=== PATIENT | male | born 1955 | race Caucasian/White ===

== ENCOUNTER 2016-05-15 19:50 | Inpatient (IN) | payer MEDICARE, BC ==
[2016-05-15] MEDS ORDERED: LABETALOL 5 MG/ML VIAL MDV IVP STA (20:33)
--- NOTE | 2016-05-15 20:39 | ED ---
Neuro HPI - General Chief Complaint: Neuro Symptoms/Deficit Stated Complaint: vision loss Time Seen by Provider: 05/15/16 20:10 Source: patient, RN notes reviewed Mode of arrival: ambulatory Limitations: no limitations - History of Present Illness Is the patient presenting with stroke symptoms?: Yes Last Known Well Date: 05/14/16 Last Known Well Time: 15:00 Initial Comments: This patient is a 61-year-old man who presents to be evaluated for changes to his vision. The patient states that on May 13 he thought he was coming down with the flu that night. He did have some nausea and vomiting and wasn't feeling well, including some mild body aches. He states that when he woke up the next morning he was not able to see. He thought that he was still having some effects of the flu and ended up just resting all day. The patient's daughter states that the patient called her around 3 but did not report the changes in his vision. When she saw him today he told her that he was not able to see and she brought him here. Patient denies headache, fever or chills, chest pain or dyspnea. He denies any other neurologic symptoms. Location: other (Revision) History of same: No Place: home Severity: severe Quality: constant Improves With: time Worsens With: none Context: sudden onset Associated Symptoms: nausea/vomiting Treatments Prior to Arrival: none - Related Data Home Medications: Home Medications Medication Instructions Recorded Confirmed Aspirin [Adult Low Dose Aspirin EC] 81 mg PO DAILY 06/16/15 06/18/15 Citalopram Hydrobromide [CeleXA] 20 mg PO HS 06/16/15 06/18/15 Ezetimibe/Simvastatin [Vytorin 1 tab PO HS 06/16/15 06/16/15 10-40 mg Tablet] Lisinopril [Zestril] 5 mg PO DAILY 06/16/15 06/16/15 Metoprolol Tartrate [Lopressor] 100 mg PO BID 06/16/15 06/18/15 Multivit-Min/FA/Lycopene/Lut 1 tab PO DAILY 06/16/15 06/18/15 [Centrum Silver Tablet] Mycophenolate Mofetil [Cellcept] 1,000 mg PO BID 06/16/15 06/18/15 Pantoprazole Sodium [Protonix] 40 mg PO DAILY 06/16/15 06/16/15 Tacrolimus [Prograf] 3 mg PO DAILY 06/16/15 06/16/15 Tacrolimus [Prograf] 4 mg PO HS 06/16/15 06/16/15 Tamsulosin HCl [Flomax] 0.4 mg PO HS 06/16/15 06/18/15 predniSONE 5 mg PO DAILY 06/16/15 06/16/15 Previous Rx's Medication Instructions Recorded Furosemide [Lasix] 40 mg PO BID #0 06/20/15 Insulin Glargine,Hum.rec.anlog 8 unit SQ HS #0 06/20/15 [Lantus Solostar] Metolazone [Zaroxolyn] 2.5 mg PO Q48H #30 tablet 06/20/15 Potassium Chloride ER [K-Dur 10] 10 meq PO DAILY #30 tab 06/20/15 hydrALAZINE HCL [Apresoline] 50 mg PO BID #60 tab 06/20/15 Allergies/Adverse Reactions: Allergies Allergy/AdvReac Type Severity Reaction Status Date / Time No Known Allergies Allergy Verified 05/15/16 20:06 Review of Systems ROS Statement: Those systems with pertinent positive or pertinent negative responses have been documented in the HPI. ROS Other: All systems not noted in ROS Statement are negative. Constitutional: Denies: fever, chills, weakness Eyes: Reports: as per HPI, vision change ENT: Denies: ear pain, hearing loss Respiratory: Denies: cough, dyspnea Cardiovascular: Denies: chest pain, palpitations, syncope Gastrointestinal: Reports: as per HPI, vomiting. Denies: abdominal pain Genitourinary: Denies: dysuria, hematuria Skin: Denies: rash Neurological: Denies: headache, weakness, numbness, paresthesias, confusion, vertigo General Exam General appearance: alert, in no apparent distress Head exam: Present: atraumatic, normocephalic, normal inspection Eye exam: Present: normal appearance, PERRL, EOMI. Absent: scleral icterus, conjunctival injection, nystagmus ENT exam: Present: normal oropharynx, mucous membranes dry Neck exam: Present: normal inspection, full ROM Respiratory exam: Present: normal lung sounds bilaterally. Absent: respiratory distress, wheezes, rales, rhonchi, stridor Cardiovascular Exam: Present: regular rate, tachycardia, systolic murmur. Absent: diastolic murmur, rubs, gallop GI/Abdominal exam: Present: soft. Absent: distended, tenderness, guarding, rebound, mass Extremities exam: Present: normal inspection, normal capillary refill. Absent: pedal edema, calf tenderness Back exam: Absent: CVA tenderness (R), CVA tenderness (L) Neurological exam: Present: alert, oriented X3. Absent: motor sensory deficit Skin exam: Present: warm, dry, intact, normal color. Absent: rash Stroke MDM - Lab Data Result diagrams: 05/15/16 20:17 05/15/16 20:17 Lab Results 05/15/16 05/15/16 05/15/16 Range/Units 20:17 20: 20:17 WBC 14.3 H (3.8-10.6) k/uL RBC 5.82 (4.30-5.90) m/uL Hgb 16.7 (13.0-17.5) gm/dL Hct 50.8 (39.0-53.0) % MCV 87.3 (80.0-100.0) fL MCH 28.7 (25.0-35.0) pg MCHC 32.8 (31.0-37.0) g/dL RDW 15.5 (11.5-15.5) % Plt Count 215 (150-450) k/uL Neutrophils % 87 % Lymphocytes % 5 % Monocytes % 5 % Eosinophils % 1 % Basophils % 0 % Neutrophils # 12.5 H (1.3-7.7) k/uL Lymphocytes # 0.8 L (1.0-4.8) k/uL Monocytes # 0.8 (0-1.0) k/uL Eosinophils # 0.1 (0-0.7) k/uL Basophils # 0.0 (0-0.2) k/uL PT (9.0-12.0) sec INR (<1.1) APTT (22.0-30.0) sec Sodium 136 L (137-145) mmol/L Potassium 4.3 (3.5-5.1) mmol/L Chloride 104 (98-107) mmol/L Carbon Dioxide 20 L (22-30) mmol/L Anion Gap 12 mmol/L BUN 34 H (9-20) mg/dL Creatinine 2.30 H (0.66-1.25) mg/dL Est GFR (MDRD) Af Amer 35 (>60 ml/min/1.73 sqM) Est GFR (MDRD) Non-Af 29 (>60 ml/min/1.73 sqM) Glucose 289 H (74-99) mg/dL POC Glucose (mg/dL) (75-99) mg/dL POC Glu Psych Specialist ID Calcium 9.7 (8.4-10.2) mg/dL Total Bilirubin 1.0 (0.2-1.3) mg/dL AST 26 (17-59) U/L ALT 23 (21-72) U/L Alkaline Phosphatase 104 (38-126) U/L Total Creatine Kinase 133 (55-170) U/L CK-MB (CK-2) 8.6 H* (0.0-2.4) ng/mL CK-MB (CK-2) Rel Index 6.5 Troponin I 0.477 H* (0.000-0.034) ng/mL Total Protein 6.1 L (6.3-8.2) g/dL Albumin 3.4 L (3.5-5.0) g/dL 05/15/16 05/15/16 05/15/16 Range/Units 20:17 20:50 23:15 WBC (3.8-10.6) k/uL RBC (4.30-5.90) m/uL Hgb (13.0-17.5) gm/dL Hct (39.0-53.0) % MCV (80.0-100.0) fL MCH (25.0-35.0) pg MCHC (31.0-37.0) g/dL RDW (11.5-15.5) % Plt Count (150-450) k/uL Neutrophils % % Lymphocytes % % Monocytes % % Eosinophils % % Basophils % % Neutrophils # (1.3-7.7) k/uL Lymphocytes # (1.0-4.8) k/uL Monocytes # (0-1.0) k/uL Eosinophils # (0-0.7) k/uL Basophils # (0-0.2) k/uL PT 10.4 (9.0-12.0) sec INR 1.0 (<1.1) APTT 24.6 (22.0-30.0) sec Sodium (137-145) mmol/L Potassium (3.5-5.1) mmol/L Chloride (98-107) mmol/L Carbon Dioxide (22-30) mmol/L Anion Gap mmol/L BUN (9-20) mg/dL Creatinine (0.66-1.25) mg/dL Est GFR (MDRD) Af Amer (>60 ml/min/1.73 sqM) Est GFR (MDRD) Non-Af (>60 ml/min/1.73 sqM) Glucose (74-99) mg/dL POC Glucose (mg/dL) 247 H 218 H (75-99) mg/dL POC Glu Psych Specialist ID Maria Guadalupe Amador Katlyn Calcium (8.4-10.2) mg/dL Total Bilirubin (0.2-1.3) mg/dL AST (17-59) U/L ALT (21-72) U/L Alkaline Phosphatase (38-126) U/L Total Creatine Kinase (55-170) U/L CK-MB (CK-2) (0.0-2.4) ng/mL CK-MB (CK-2) Rel Index Troponin I (0.000-0.034) ng/mL Total Protein (6.3-8.2) g/dL Albumin (3.5-5.0) g/dL 05/16/16 Range/Units 00:50 WBC (3.8-10.6) k/uL RBC (4.30-5.90) m/uL Hgb (13.0-17.5) gm/dL Hct (39.0-53.0) % MCV (80.0-100.0) fL MCH (25.0-35.0) pg MCHC (31.0-37.0) g/dL RDW (11.5-15.5) % Plt Count (150-450) k/uL Neutrophils % % Lymphocytes % % Monocytes % % Eosinophils % % Basophils % % Neutrophils # (1.3-7.7) k/uL Lymphocytes # (1.0-4.8) k/uL Monocytes # (0-1.0) k/uL Eosinophils # (0-0.7) k/uL Basophils # (0-0.2) k/uL PT (9.0-12.0) sec INR (<1.1) APTT (22.0-30.0) sec Sodium (137-145) mmol/L Potassium (3.5-5.1) mmol/L Chloride (98-107) mmol/L Carbon Dioxide (22-30) mmol/L Anion Gap mmol/L BUN (9-20) mg/dL Creatinine (0.66-1.25) mg/dL Est GFR (MDRD) Af Amer (>60 ml/min/1.73 sqM) Est GFR (MDRD) Non-Af (>60 ml/min/1.73 sqM) Glucose (74-99) mg/dL POC Glucose (mg/dL) 176 H (75-99) mg/dL POC Glu Psych Specialist ID Cesilia Johnson Calcium (8.4-10.2) mg/dL Total Bilirubin (0.2-1.3) mg/dL AST (17-59) U/L ALT (21-72) U/L Alkaline Phosphatase (38-126) U/L Total Creatine Kinase (55-170) U/L CK-MB (CK-2) (0.0-2.4) ng/mL CK-MB (CK-2) Rel Index Troponin I (0.000-0.034) ng/mL Total Protein (6.3-8.2) g/dL Albumin (3.5-5.0) g/dL - Medical Decision Making This patient is 61-year-old man who presents with decreased visual acuity affecting both eyes, but is been going on for approximately 30 hours. The computed tomography scan does not reveal acute stroke, and the physical exam does not reveal the etiology of the patient's decreased visual acuity. Patient will be admitted for further evaluation. Of note the patient does state that he feels his symptoms are improving, he states he is beginning to recognize faces, which she was not able to do yesterday Past Medical History Past Medical History: Coronary Artery Disease (CAD), Chest Pain / Angina, Diabetes Mellitus, Dialysis, Hyperlipidemia, Hypertension Additional Past Medical History / Comment(s): benign brain tumor(removed)- has mild short term memory problems, gout, occ heartburn History of Any Multi-Drug Resistant Organisms: None Reported Past Surgical History: Coronary Bypass/CABG Additional Past Surgical History / Comment(s): brain tumor removed,(rt) kidney transplant 2014, 5 vessel cabg, colonoscopy-clear, lt knee arthroscopy, rt arm fistula. 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 Smoking Status: Former smoker Past Alcohol Use History: None Reported Past Drug Use History: None Reported - Past Family History Father Family Medical History: Hypertension, Renal Disease Mother Family Medical History: No Reported History Sister(s) Family Medical History: Hyperlipidemia, Renal Disease Course Vital Signs 05/15/16 05/15/16 05/15/16 20:00 20:55 23:03 Temperature 97.3 F L Pulse Rate 113 H 100 87 Respiratory 18 18 18 Rate Blood Pressure 184/112 163/111 156/92 O2 Sat by Pulse 96 97 97 Oximetry 05/16/16 05/16/16 05/16/16 00:02 01:02 04:19 Temperature Pulse Rate 83 84 93 Respiratory 18 18 18 Rate Blood Pressure 156/91 154/87 166/105 O2 Sat by Pulse 95 96 96 Oximetry 05/16/16 07:03 Temperature 97.4 F L Pulse Rate 86 Respiratory 18 Rate Blood Pressure 150/85 O2 Sat by Pulse 97 Oximetry Disposition Clinical Impression: Renal failure, HTN (hypertension), Diabetes, Decreased visual acuity Disposition: ADMITTED IP TO THIS [facility] Condition: Poor
[2016-05-15 20:53] LABS: Glucose,Whole Blood 247 mg/dL (75-99)
[2016-05-15 21:01] LABS: Partial Thromboplastin Time 24.6 sec (22.0-30.0); Prothrombin Time 10.4 sec (9.0-12.0)
--- NOTE | 2016-05-15 21:01 | XR ---
EXAMINATION TYPE: XR chest 1V portable DATE OF EXAM: 05/15/2016 8:47 PM COMPARISON: June 16, 2015 HISTORY: Altered mental status. Flulike symptoms. TECHNIQUE: Single frontal view of the chest is obtained. FINDINGS: There is no heart failure nor confluent pneumonic infiltrate. There are no hilar masses. T here are sternal wires. There are chest leads. IMPRESSION: No active cardiopulmonary disease. There is probably cardiomegaly. There is clearing of infiltrate and pleural fluid at the left lung base compared to last exam.
[2016-05-15 21:03] LABS: Calcium 9.7 mg/dL (8.4-10.2); Potassium 4.3 mmol/L (3.5-5.1); Total Protein 6.1 g/dL (6.3-8.2)
[2016-05-15 21:05] LABS: Basophils % (A) 0 %; CH 29.5; CHCM 33.9; Eosinophils # (A) 0.1 k/uL (0-0.7); Eosinophils % (A) 1 %; HCT 50.8 % (39.0-53.0); HDW 3.06; HGB 16.7 gm/dL (13.0-17.5); Luc # (Auto) 0.21; Luc % (Auto) 2; Lymphocytes # (A) 0.8 k/uL (1.0-4.8); Lymphocytes % (A) 5 %; MCH 28.7 pg (25.0-35.0); MCHC 32.8 g/dL (31.0-37.0); MCV 87.3 fL (80.0-100.0); Mean Platelet Volume 7.4; Monocytes # (A) 0.8 k/uL (0-1.0); Monocytes % (A) 5 %; Neutrophils # (A) 12.5 k/uL (1.3-7.7); Neutrophils % (A) 87 %; RBC 5.82 m/uL (4.30-5.90); RDW 15.5 % (11.5-15.5); WBC 14.3 k/uL (3.8-10.6); WBC (Perox) 14.54
[2016-05-15 21:23] LABS: Creatine Kinase MB 8.6 ng/mL (0.0-2.4)
[2016-05-15 21:24] LABS: Troponin I 0.477 ng/mL (0.000-0.034)
--- NOTE | 2016-05-15 21:28 | CT ---
EXAMINATION TYPE: CT brain wo con DATE OF EXAM: 05/15/2016 9:23 PM COMPARISON: 01/08/2013 HISTORY: Headache and episode of vision loss. History of brain tumor removal. CT DLP: 1131.00 mGycm Automated exposure control for dose reduction was used. FINDINGS: There is frontal craniotomy defect and bilateral frontal lobe hypodensity consistent with encephaloma lacia and postsurgical changes. There is no midline shift. There is no sign of intracranial hemorrhag e. IMPRESSION: Postsurgical changes with encephalomalacia. No acute abnormality. No change compared to old exam.
[2016-05-15] MEDS ORDERED: INSULIN REGULAR 100 UNIT/ML VIAL SQ STA ×2 (22:55→23:16)
[2016-05-15] MEDS ORDERED: LABETALOL SYRINGE 5 MG/ML IVP STA (22:56)
[2016-05-15 23:16] LABS: Glucose,Whole Blood 218 mg/dL (75-99)
[2016-05-16 00:51] LABS: Glucose,Whole Blood 176 mg/dL (75-99)
[2016-05-16] MEDS ORDERED: ONDANSETRON 4 MG/2 ML VIAL IVP PRN (01:01)
[2016-05-16] MEDS ORDERED: NALOXONE 0.4 MG/ML 1 ML VIAL IV PRN (01:01)
[2016-05-16] MEDS: SODIUM CHLORIDE 0.9% 1,000 ML IV SCH ×4 (04:31→16:30)
[2016-05-16] MEDS ORDERED: hydrALAZINE HCL 50 MG TAB PO SCH (09:00)
[2016-05-16] MEDS ORDERED: TACROLIMUS 1 MG CAP PO SCH ×3 (09:00→21:00)
[2016-05-16] MEDS ORDERED: METOLAZONE 2.5 MG TAB PO SCH (09:00)
[2016-05-16] MEDS: ASPIRIN 81 MG CHEW PO SCH (09:41)
[2016-05-16] MEDS: predniSONE 5 MG TAB PO SCH (09:45)
[2016-05-16] MEDS: POTASSIUM CHLORIDE ER 10 MEQ TAB.ER.PRT PO SCH (09:45)
[2016-05-16] MEDS: LISINOPRIL 5 MG TAB PO SCH (09:46)
[2016-05-16] MEDS: MYCOPHENOLATE MOFETIL 500 MG TAB PO SCH ×2 (09:46→20:50)
[2016-05-16] MEDS: METOPROLOL TARTRATE 50 MG TAB PO SCH ×2 (09:46→20:50)
[2016-05-16] MEDS: PANTOPRAZOLE 40 MG TABLET PO SCH (09:47)
[2016-05-16] MEDS: MULTIVITAMINS, THERA 1 EACH TAB PO SCH (09:47)
[2016-05-16] MEDS: hydrALAZINE HCL 50 MG TAB PO SCH ×3 (09:47→20:51)
[2016-05-16] MEDS: FUROSEMIDE 40 MG TAB PO SCH ×2 (09:47→16:29)
[2016-05-16 11:45] LABS: Glucose,Whole Blood 220 mg/dL (75-99)
[2016-05-16 12:19] LABS: Glucose,Whole Blood 219 mg/dL (75-99)
[2016-05-16] MEDS: INSULIN LISPRO (humaLOG) 300 UNIT/3 ML VIAL SQ SCH ×2 (12:53→17:06)
[2016-05-16 13:22] LABS: Appearance,Urine Clear (Clear); Bilirubin,Urine Negative (Negative); Glucose,Urine (UA) 3+ (Negative); Granular Casts,Urine 2 /lpf (0); Ketones,Urine Negative (Negative); Leukocyte Esterase,Urine Negative (Negative); Mucus,Urine Rare /hpf; Nitrite,Urine Negative (Negative); PH, Urine 6.5 (5.0-8.0); Particle Count 3136; Protein,Urine 4+ (Negative); RBC,Urine 8 /hpf (0-5); Specific Gravity,Urine 1.019 (1.001-1.035); Squamous Epithelial Cell,Urine <1 /hpf (0-4); UA Billing (MACRO vs. MICRO) MICRO; Urobilinogen,Urine <2.0 mg/dL (<2.0); WBC,Urine 2 /hpf (0-5)
--- NOTE | 2016-05-16 14:43 | P.CON ---
Consult Note - . Consult date: 05/16/16 Assessment/Plan:: This is a 61 y/o male with a history of having experienced a severe headache 2 days ago, and an apparent sudden loss of vision. He had flu symptoms was nauseated and vomiting and was without oral intake. He apparently stumbled and fell and was unable to call out for help. He denies any vertigenous symptoms or associated weakness or other associated neurological symptoms during the onset of the headache and loss of sight. The following day his daughter came over to find him in poor shape with decreased vision and had the patient assessed in the emergency room. He states his vision was "blind" but not apparently so totally that there was not light. He has noted that since his admission the vision has improved dramatically but is not necessarily back to normal. On admission, the vision was apparently no better than hand motion or finger counting. He underwent CT and is currently admitted for possible cerebral vascular accident. He states that he has been following up with a telephone maintenance mechanic and was asked to seek and eye exam, as it's been several years since the eyes have been examined. He has been only using OTC readers for the last few years, however, he previously had glasses which were some combination of distance and reading. Those glasses became scratched and he's failed to update them. Past medical history: hypertension, Chronic renal failure with subsequent transplant 4 years ago. Diabetes mellitus Type 2, 4 years ago. Typical FBS is 140-160 mg% for some time, no A-1-C known. Exam: Vision: 20/25-2 OD, 20/30+2 OS, uncorrected near. Confrontational salmeron, mild constriction, no patter. Pupils, No APD. EOM, full D&V orthophoric, but near point convergence is 3" from nose. IOP via Tonopen 13 OD, 14 OS @ 1345 hrs. Eyelids: normal Conjunctiva: normal Cornea: clear AC: Deep & quiet Iris: blue unremarkable Lens: 1+NS, and Trace CS, OD>OS Dilated: @ 1347 hrs tropicamide & phenylephrine Vitreous: clear Optic nerve: S/F/P Cup to Disk: 0.35 OU Macula: quiet, dim foveolar light reflex. Vessels: 0.67 OU, no NPDR or other diabeabetic risks noted Periphery: no PDR or intraretinal diabetic findings A: Bilateral loss of vision, possible amaurosis or migraine or cerebral vascular accident. If CVA, good salmeron already noted, perhaps? slightly constricted? There is a lot of underlying medical conditions which could contribute to the change in status, but at this time appears to be improving nicely. Recommend proceed as planned with a formal ophthalmic examination with visual salmeron to better determine if there was a true loss from CVA. The transient nature of this episode could be dehydration or poor sugar control, low possibly. This will be better determined by the medical workup being undertaken at this time. P: I will be available for further ophthalmic assessment while admitted, if you feel it necessary. Recommend the complete eye exam and possible visual field once released. Recommend updated glasses, though not necessarily pertinent to this admission.
[2016-05-16 16:56] LABS: Glucose,Whole Blood 183 mg/dL (75-99)
[2016-05-16 17:05] VITALS: BMI 29.8
[2016-05-16 20:07] LABS: Glucose,Whole Blood 118 mg/dL (75-99)
[2016-05-16] MEDS ORDERED: TAMSULOSIN 0.4 MG CAP.ER.24H PO SCH (21:00)
[2016-05-16] MEDS ORDERED: CITALOPRAM HYDROBROMIDE 20 MG TAB PO SCH (21:00)
[2016-05-16] MEDS ORDERED: EZETIMIBE 10 MG TAB PO SCH ×2 (21:00→21:10)
[2016-05-16] MEDS ORDERED: ATORVASTATIN 20 MG TAB PO SCH (21:00)
[2016-05-16] MEDS ORDERED: INSULIN DETEMIR 100 UNIT/ML 10 ML VIAL SQ SCH ×2 (21:00)
[2016-05-17 04:43] VITALS: PULSE 68
[2016-05-17 05:25] LABS: Basophils % (A) 1 %; CH 29.6; CHCM 33.7; Eosinophils # (A) 0.3 k/uL (0-0.7); Eosinophils % (A) 3 %; HCT 43.7 % (39.0-53.0); HDW 3.08; HGB 13.9 gm/dL (13.0-17.5); Luc # (Auto) 0.18; Luc % (Auto) 2; Lymphocytes # (A) 1.1 k/uL (1.0-4.8); Lymphocytes % (A) 12 %; MCH 28.2 pg (25.0-35.0); MCHC 31.9 g/dL (31.0-37.0); MCV 88.3 fL (80.0-100.0); Monocytes # (A) 0.5 k/uL (0-1.0); Monocytes % (A) 6 %; Neutrophils # (A) 6.7 k/uL (1.3-7.7); Neutrophils % (A) 76 %; RBC 4.95 m/uL (4.30-5.90); RDW 15.5 % (11.5-15.5); WBC 8.7 k/uL (3.8-10.6); WBC (Perox) 8.66
[2016-05-17 05:55] LABS: Calcium 8.5 mg/dL (8.4-10.2); Magnesium 1.9 mg/dL (1.6-2.3); Phosphorous 4.2 mg/dL (2.5-4.5); Potassium 3.4 mmol/L (3.5-5.1)
[2016-05-17] MEDS: POTASSIUM CHLORIDE ER 10 MEQ TAB.ER.PRT PO SCH (06:46)
[2016-05-17 07:28] LABS: Glucose,Whole Blood 131 mg/dL (75-99)
[2016-05-17] MEDS: INSULIN LISPRO (humaLOG) 300 UNIT/3 ML VIAL SQ SCH (08:14)
[2016-05-17] MEDS: FUROSEMIDE 40 MG TAB PO SCH (08:15)
[2016-05-17] MEDS: predniSONE 5 MG TAB PO SCH (08:15)
[2016-05-17] MEDS: ASPIRIN 81 MG CHEW PO SCH (08:15)
[2016-05-17] MEDS: PANTOPRAZOLE 40 MG TABLET PO SCH (08:15)
[2016-05-17] MEDS: MULTIVITAMINS, THERA 1 EACH TAB PO SCH (08:15)
[2016-05-17] MEDS: LISINOPRIL 5 MG TAB PO SCH (08:15)
[2016-05-17] MEDS: hydrALAZINE HCL 50 MG TAB PO SCH (08:15)
[2016-05-17 08:22] VITALS: RESP 18; TEMP 97.4
[2016-05-17] MEDS: MYCOPHENOLATE MOFETIL 500 MG TAB PO SCH (08:25)
[2016-05-17] MEDS ORDERED: TACROLIMUS 1 MG CAP PO SCH (09:00)
--- NOTE | 2016-05-17 09:03 | HP ---
DATE OF ADMISSION: CHIEF COMPLAINT: Difficulty seeing. HISTORY OF PRESENT ILLNESS: This is a 61-year-old gentleman who was admitted to the hospital after being brought in to the emergency room. The patient was admitted by Dr. Walters semiconductor lab technician. The patient presented with complaints of visual difficulty. The patient says on Monday he had some flu symptoms. He had quite a bit of retching, nausea, vomiting and significant headache. Following that, he basically laid low. He did not take his medications. He slept most of the day. Next day the patient did talk to the daughter but did not mention that he was not able to see. When the daughter came by later in the evening he told her that he could not really see. The patient said he was not even able to see where the phone was that he could have made a call. The daughter's phone revealed that she had made a call and the patient had answered. The patient could not recall that he had picked up the phone call. The patient otherwise on presenting to the emergency room denies any other major symptoms. His vision this morning has improved significantly. When I walked into the room, he recognized me and when I asked him what time it was he looked at his watch and said he could tell me that it was 10 minutes to 8, which was accurate. The patient denied any headache at this time. The patient's blood pressure was markedly elevated at the time of ER evaluation. No other focal sign was noted. The patient has had a previous history of brain tumor and a CAT scan of the brain revealed no evidence of recurrence. The patient has history of diabetes mellitus and has been seeing Dr. Alexandra Putnam for intensive management of his diabetes as his blood sugars have been running extremely high. His sugars levels are much better. The patient is more compliant to diet and treatment. The patient also has significant depression and was recommended to see the psychiatrist. The patient has not seen an eye doctor for a long time despite being recommended number of times. He has finally made an appointment and it is scheduled for tomorrow. The patient does have a history of renal failure been and previously dialysis and now history of renal transplant. He is doing well with his renal transplant. He does follow with nephrology. Past medical history is significant for as mentioned above, history of hypertension long-standing at least 32 years, history of renal failure, history of dyslipidemia, coronary artery disease, status post CABG, and a brain tumor. The patient also has a history of depression. He does follow up with a technical operations specialist. The patient had been hospitalized back in about a year ago in June with marked anasarca, shortness of breath. The patient had not been very compliant with his medications and was noted to be in congestive cardiac failure. Patient has been a diabetic for the past about 9 years. He had a renal transplant back in 2012, prior to that he had been on dialysis. He had a previous brain benign tumor from the frontal lobe excised. He had a CABG back in August 2011. Patient's brain tumor was a meningioma. He had a significant large fistula in the right arm for his hemodialysis. It was exercised since it had become extremely big. The patient has had a previous chronic glomerulonephritis leading to the renal failure. PERSONAL HISTORY: The patient is an ex-smoker, quit smoking about 8 years ago. Used to smoke 1/2 pack per day for over 20 years. Alcohol none. SOCIAL HISTORY: The patient is . Lives alone at present. The daughter used to live with him for about a year until about 3 months ago. The daughter lives close by to him. VACCINATION HISTORY: Annual flu shot. He has had a Pneumovax in April 2011 and has had a previous hepatitis series. ALLERGIES: JACQUI INHIBITORS cause a cough. Medications include: 1. Prograf 1 mg 4 capsules in the morning 3 in the evening. 2. CellCept 500 mg 2 tablets twice daily. 3. Prednisone 5 mg daily. 4. Protonix 40 mg daily. 5. Lopressor 50 mg b.i.d. 6. Aspirin 81 mg daily. 7. Flomax 0.4 mg daily. 8. Celexa 20 mg daily. 9. Centrum Silver daily. 10. Insulin Novolin R about on an average 20 units in the morning, 20 to 30 units of Novolin at lunch time and 10 to 30 units of Novolin R at bedtime with about 5 units a.c. dinner. FAMILY MEDICAL HISTORY: Father at the age of 48 of coronary artery disease. He also had a history of kidney disease. Mother is 80 years of age, in fair health. The patient has a ( ) 57 on dialysis. A sister 55 with history of hypertension. The patient has one son and one daughter in adequate health. REVIEW OF SYSTEMS: NEURO: Present complaint of headache, mild dizziness. Denied any double vision. Complained of decreased vision in both eyes. No symptoms of syncope or seizures. PSYCH: History of depression, no anxiety. CARDIAC: Denies chest pain, angina, palpitations. RESPIRATORY: Denies shortness of breath, cough, hemoptysis. GI: Denies any nausea, vomiting, abdominal pain, diarrhea. : No symptoms of dysuria, hematuria, urgency, frequency. EXTREMITIES: Denies pain. Has noticed minimal edema. CONSTITUTIONAL: No fever or chills. HEMATOLOGIC: No anemia or bleeding disorder. ENDOCRINE: History of diabetes mellitus. No history of hypothyroidism. SKIN: No rashes. CONSTITUTIONAL: No fever or chills. HEMATOLOGIC: No anemia or bleeding disorder. ENT: Adequate smell, taste. Hearing adequate. PHYSICAL EXAMINATION: Pleasant gentleman, appears in no distress. Appears stated age. Vital signs reveal blood pressure 184/112, pulse rate 113, respirations 18, temperature 97.3, pulse ox 96% on room air. HEENT: Normocephalic. Neck is supple. Pupils reactive. Conjunctivae pink. Scleral anicteric. Eyes full range of motion. Fundi reveals no evidence of any acute bleed bleeding either eye. This is a limited exam. ( ) vasculature does reveal evidence of some AV nicking and the backgrounds appear as if appeared to have some old exudates. Ears reveal no drainage. Neck reveals no JVD, carotid bruits, or thyromegaly. Chest examination is clear to auscultation and percussion. CARDIAC: Normal S1, S2 with no gallops. Systolic murmur 2/6 left sternal border. ABDOMEN: Soft, no palpable masses. Bowel sounds normal. No organomegaly. No abdominal bruits. The patient has a palpable ( ) kidney right lower flank. Extremities reveal trace edema. Good pulses both upper extremities. Decreased pedal pulses. NEUROLOGIC: Awake, alert, oriented x3. Cranial nerves 2 through 12 appear intact. Bilateral symmetrical strength. Deep tendon reflexes symmetrical. Plantars equivocal left side, downgoing right side. ( ) intact. Patient's vision is intact. LABORATORY ASSESSMENT: CBC which revealed a white count of 14.3, hemoglobin 16.7. INR is normal. Sodium 136, potassium 4.3, chloride 104, CO2 of 20, BUN 34, creatinine 2.3. Glucose 289. CPK normal. Troponin elevated at 0.477. Albumin 3.4. EKG no acute changes. CAT scan of the brain, no evidence of any acute changes. ASSESSMENT: 1. Acute visual loss of unclear etiology with bilateral high visual loss, focal neurological, probably less likely is the patient had occipital episode would be only a field of vision loss. The patient had total visual field loss. 2. Accelerated hypertension, possibly etiology to his visual loss. 3. Diabetes mellitus, uncontrolled with elevated blood sugars. 4. History of renal transplant. 5. Chronic renal failure. 6. Stable coronary artery disease. PLAN: The patient is stable. Continue present medical regimen. The patient's condition discussed with the patient. Ophthalmic consultation. Customer Servicer, Dr. Barron Welch, did call me and felt that he was not impressed that the patient had a CVA. His vision seemed to be intact. Discussed condition with the patient's daughter. It appears the patient did have visual loss of unclear etiology. It is possible that it could have been related to markedly elevated blood pressure. The patient not having taken his medications suspect was the cause of markedly elevated blood pressure. The patient's blood pressure is being control, which is improved back to normal range. The patient's blood sugars are continued to be covered with insulin. He did see the parallel computing software engineer today and he does have appointments with ophthalmology for routine exams. Patient encouraged to follow up with map clerk as well as parallel computing software engineer. Potential discharge home tomorrow.
[2016-05-17 09:16] VITALS: BP 152/70
[2016-05-17] MEDS: METOPROLOL TARTRATE 50 MG TAB PO SCH (09:16)
[2016-05-17 12:56] LABS: Hemoglobin A1C 10.6 % (4.2-6.1)
== END 2016-05-17 10:02 | disposition home or self-care (01) | DRG 123 ==
LOC: EC 19:50 → 6SEL 05-16 01:01 → 6ICU 05-16 11:34
PROVIDERS: ADMIT Internal Medicine; ATTEND Internal Medicine
DX: H53.123 Transient visual loss, bilateral (principal); E11.22 Type 2 diabetes mellitus with diabetic chronic kidney disease; Z94.0 Kidney transplant status; I25.10 Atherosclerotic heart disease of native coronary artery without angina pectoris; E11.65 Type 2 diabetes mellitus with hyperglycemia; E78.5 Hyperlipidemia, unspecified; M10.9 Gout, unspecified; I10 Essential (primary) hypertension; Z95.1 Presence of aortocoronary bypass graft; Z87.891 Personal history of nicotine dependence; Z86.011 Personal history of benign neoplasm of the brain; F32.9 Major depressive disorder, single episode, unspecified; Z79.82 Long term (current) use of aspirin; Z79.4 Long term (current) use of insulin; Z79.52 Long term (current) use of systemic steroids; Z79.899 Other long term (current) drug therapy; W01.0XXA Fall on same level from slipping, tripping and stumbling without subsequent striking against object, initial encounter; Y92.009 Unspecified place in unspecified non-institutional (private) residence as the place of occurrence of the external cause
CPT/HCPCS: 36415; 70450; 71010; 80048; 80053; 81001; 82550; 82553; 83036; 83735; 84100; 84484; 85025; 85610; 85730; 93005; 96361; 96374; 99285

== ENCOUNTER → 2016-11-29 | Outpatient (CLI) | payer MEDICARE, BC ==
--- NOTE | 2016-11-29 18:40 | US ---
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 Enlarged thyroid. GLAND SIZE: Right Lobe: 6.4 x 1.9 x 2.7 cm Overall Parenchyma: homogenous Left Lobe: 5.9 x 1.8 x 2.4 cm Overall Parenchyma: homogeneous Isthmus Thickness: 0.34 cm NODULES RIGHT: # of nodules measured on right: 2 1. 1.4 X 0.6 x 1.0 cm hypoechoic solid nodule at the upper pole with well-defined margins; This no dule is wider than tall and shows intranodular vascularity. 2. 1.5 X 0.8 x 1.1 cm Anechoic cystic nodule at the lower pole with well-defined margins. This nodu le is wider than tall and shows no intranodular vascularity LEFT: # of nodules measured on left: ISTHMUS: # of nodules measured in the isthmus: Bilateral neck scanned, no evidence of lymphadenopathy. Bilateral nodules seen largest measured on right lobe. sub centimeter nodule on left lobe. IMPRESSION: Bilateral relatively small findings in the thyroid gland consistent with benign disease. No dominant thyroid mass. Enlarged thyroid gland consistent with multinodular goiter.
== END | disposition home or self-care (01) ==
LOC: RADUSMAIN 17:45
PROVIDERS: ATTEND Internal Medicine Nephrology
DX: E04.9 Nontoxic goiter, unspecified (principal)
CPT/HCPCS: 76536

== ENCOUNTER 2017-06-01 10:25 | Day surgery (SDC) | payer MEDICARE, BC ==
[2017-05-24 15:40] VITALS: BMI 26.5
[~2017-06-01 10:25] MED LIST: FAMOTIDINE 20 MG/2 ML VIAL IV ONE; FAMOTIDINE 20 MG/2 ML VIAL IV PRN; HYDROmorphone 0.5 MG/0.5 ML SYRINGE IVP PRN; LACTATED RINGERS 1,000 ML IV SCH; LIDOCAINE 1% 20 ML VIAL (10MG/ML) FOR IV START INTRADERMA PRN; MIDAZOLAM 2 MG/2 ML VIAL IV PRN; ONDANSETRON 4 MG/2 ML VIAL IVP PRN; ceFAZolin 1,000 MG in DEXTROSE/WATER 1 50ML.BAG IV ONE
[2017-06-01 11:58] LABS: Glucose,Whole Blood 102 mg/dL (75-99)
[2017-06-01] MEDS ORDERED: LIDOCAINE 1% INJ 10MG/ML (20 ML MDV) ONE (12:33)
[2017-06-01] MEDS ORDERED: fentaNYL (PF) 50 MCG/ML 2 ML AMP ONE (12:33)
[2017-06-01] MEDS ORDERED: SUCCINYLCHOLINE CHLORIDE 100 MG/5 ML SYR IV ONE (12:33)
[2017-06-01] MEDS ORDERED: MIDAZOLAM 2 MG/2 ML VIAL ONE (12:33)
[2017-06-01] MEDS ORDERED: PROPOFOL 10 MG/ML 20 ML VIAL IV ONE (12:33)
[2017-06-01] MEDS ORDERED: BUPIVACAIN-EPI 0.5%-1:200,000 30 ML VIAL SQ ONE (12:59)
[2017-06-01 13:56] VITALS: TEMP 974
--- NOTE | 2017-06-01 14:13 | P.OP ---
Date of Procedure: 06/01/17 Preoperative Diagnosis: 8 x 4 cm left neck lesion Postoperative Diagnosis: Same Procedure(s) Performed: Excision of an 8 x 4 cm left neck a lesion with bilateral advancement flap closure with a secondary defect measuring 16 x 8 cm Anesthesia: MARIA LUISAA Surgeon: Christian Lundy Estimated Blood Loss (ml): 25 Pathology: other (Left neck lesion) Condition: stable Disposition: PACU Indications for Procedure: This patient has a nonhealing suspicious lesion of the left neck and surgical removal was recommended Operative Findings: Patient had a large left neck lesion underwent for frozen section and all margins came back negative for tumor Description of Procedure: This patient was taken to the operative room and placed in the supine position. A general inhalation anesthetic was administered the patient by mask and subsequently intubated with a cuffed endotracheal tube. The left neck was sterilely prepped and draped in usual fashion and the lesion was marked. He was anesthetized with lidocaine 1% with epinephrine 1 100,000. With use of a 15 blade this lesion was excised and sent for frozen section and all margins came back negative for tumor. We then had a large defect of the left neck measuring 8 x 4 cm. We then developed medial and lateral pedicle flaps for closure of this defect. We in an H-type fashion made incisions and rotated the adjacent skin with extensive undermining into the defect. We removed kristy's triangles. We had a secondary defect measuring 16 x 8 cm. We closed the deep subcutaneous tissue with a 3-0 PDS the deep dermal layer with a 4-0 Monocryl and the skin with a 50 rapid Vicryl in a running nonlocking fashion. Excellent approximation was obtained. Steri-Strips were applied. Medipore tape was applied.
[2017-06-01 14:27] VITALS: RESP 16
[2017-06-01 14:35] LABS: Glucose,Whole Blood 169 mg/dL (75-99)
[2017-06-01 14:53] VITALS: BP 141/68; PULSE 63
== END 2017-06-01 15:19 | disposition home or self-care (01) ==
LOC: OR 10:25
PROVIDERS: ATTEND Otolaryngology
DX: D04.4 Carcinoma in situ of skin of scalp and neck (principal); I25.10 Atherosclerotic heart disease of native coronary artery without angina pectoris; E11.22 Type 2 diabetes mellitus with diabetic chronic kidney disease; I13.2 Hypertensive heart and chronic kidney disease with heart failure and with stage 5 chronic kidney disease, or end stage renal disease; N18.6 End stage renal disease; I50.9 Heart failure, unspecified; Z79.4 Long term (current) use of insulin; Z87.891 Personal history of nicotine dependence; E78.5 Hyperlipidemia, unspecified; Z95.1 Presence of aortocoronary bypass graft; G47.33 Obstructive sleep apnea (adult) (pediatric); Z99.89 Dependence on other enabling machines and devices; K21.9 Gastro-esophageal reflux disease without esophagitis; M10.9 Gout, unspecified; F32.9 Major depressive disorder, single episode, unspecified; E78.00 Pure hypercholesterolemia, unspecified; Z79.899 Other long term (current) drug therapy; Z79.52 Long term (current) use of systemic steroids
CPT/HCPCS: 88305; 84132; 88331; 14301; 14302 ×3; J2250; J2405; J2001; J3010; J0330; J2704

== ENCOUNTER 2017-11-04 14:18 | Emergency (ER) | payer MEDICARE, BC ==
[2017-11-04 14:38] VITALS: TEMP 97.7
--- NOTE | 2017-11-04 17:45 | ED ---
Recheck HPI - General Chief Complaint: Recheck/Abnormal Lab/Rx Stated Complaint: rt arm bleeding Time Seen by Provider: 11/04/17 15:55 Source: patient, RN notes reviewed, old records reviewed Mode of arrival: ambulatory Limitations: no limitations - History of Present Illness Initial Comments: 62-year-old male presents emergency Department chief complaint of swelling and irritation over the right upper arm. He reports that he was at dialysis today and the IV site infiltrated said he immediately stopped it. Patient reports that they gave him ice over the area and sent him home. He will complete his dialysis on Monday. He states that he put ice on the arm and fell asleep and on. He woke up with the arm swollen 3 times normal size, an hour or so afterward.. Patient reports that he does have some blisters over the site where his fistula is. - Related Data Home Medications Medication Instructions Recorded Confirmed Pantoprazole Sodium [Protonix] 40 mg PO DAILY 06/16/15 11/04/17 Tamsulosin HCl [Flomax] 0.4 mg PO HS 06/16/15 11/04/17 Allopurinol [Zyloprim] 100 mg PO DAILY 05/16/16 11/04/17 Ergocalciferol [Vitamin D2 50,000 unit PO WE 05/16/16 11/04/17 (DRISDOL)] Magnesium Oxide [Mag-Ox] 400 mg PO DAILY 05/16/16 11/04/17 Metoprolol Tartrate [Lopressor] 100 mg PO BID 05/16/16 11/04/17 Atorvastatin [Lipitor] 20 mg PO BID 03/07/17 11/04/17 Insulin NPH Human Isophane See Protocol SQ DAILY 03/07/17 11/04/17 [NovoLIN N] amLODIPine [Norvasc] 5 mg PO DAILY 03/07/17 11/04/17 buPROPion HCL [Wellbutrin XL] 150 mg PO DAILY 03/07/17 11/04/17 Escitalopram [Lexapro] 20 mg PO DAILY 05/24/17 11/04/17 Previous Rx's Medication Instructions Recorded Potassium Chloride ER [K-Dur 10] 10 meq PO DAILY #30 tab 06/20/15 Allergies Allergy/AdvReac Type Severity Reaction Status Date / Time No Known Allergies Allergy Verified 11/04/17 17:54 Review of Systems ROS Statement: Those systems with pertinent positive or pertinent negative responses have been documented in the HPI. ROS Other: All systems not noted in ROS Statement are negative. 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 History of Any Multi-Drug Resistant Organisms: None Reported Past Surgical History: Coronary Bypass/CABG, Heart Catheterization, Orthopedic Surgery Additional Past Surgical History / Comment(s): Recent transplant biopsy, vein mapping last week at [facility] in preparation for new fistula, meningioma benign brain tumor removed at [facility], (rt) kidney transplant 2013 at [facility], 5 vessel cabg, colonoscopy-clear, lt knee arthroscopy, rt arm fistulas with R upper arm fistula removed, forehead skin cancer removal. Past Anesthesia/Blood Transfusion Reactions: Motion Sickness Past Psychological History: No Psychological Hx Reported Smoking Status: Former smoker Past Alcohol Use History: None Reported Past Drug Use History: None Reported - Past Family History Father Family Medical History: Hypertension, Myocardial Infarction ([place]), Renal Disease Additional Family Medical History / Comment(s): Pt states his father had received blood, had a reaction-a [place] and at the age of 40yrs. Mother Family Medical History: Dementia Additional Family Medical History / Comment(s): Mother is 82 yrs old. Sister(s) Family Medical History: Hyperlipidemia, Renal Disease Additional Family Medical History / Comment(s): Sister is on hemodialysis. General Exam - General Exam Comments Initial Comments: 62-year-old male. Alert and oriented. No significant distress. Limitations: no limitations General appearance: alert, in no apparent distress Head exam: Present: atraumatic, normocephalic, normal inspection Eye exam: Present: normal appearance, PERRL, EOMI. Absent: scleral icterus, conjunctival injection, periorbital swelling ENT exam: Present: normal exam Neck exam: Present: normal inspection. Absent: tenderness, meningismus, lymphadenopathy Respiratory exam: Present: normal lung sounds bilaterally. Absent: respiratory distress, wheezes, rales, rhonchi, stridor Cardiovascular Exam: Present: regular rate, normal rhythm, normal heart sounds. Absent: systolic murmur, diastolic murmur, rubs, gallop, clicks GI/Abdominal exam: Present: soft, normal bowel sounds. Absent: distended, tenderness, guarding, rebound, rigid Extremities exam: Present: normal inspection, full ROM, normal capillary refill. Absent: tenderness, pedal edema, joint swelling, calf tenderness Right Shoulder Exam: Present: normal inspection, full ROM Upper Arm exam: Present: tenderness (Patient has tenderness and swelling over the anterior aspect of the fistula. Patient has evidence of a lump over the skin. This is from where he put the ice on the area.), swelling, other (I am able to auscultate bruit over the fistula. It is no bleeding from sites.). Absent: normal inspection Elbow exam: Present: normal inspection, full ROM Forearm Wrist exam: Present: normal inspection, full ROM Hand Wrist exam: Present: normal inspection, full ROM Neuro motor exam: Present: wrist extension intact, thumb opposition intact, thumb IP flexion intact, thumb adduction intact, fingers 2-5 abduction intact Vascular: Present: normal capillary refill Back exam: Present: normal inspection Neurological exam: Present: alert, oriented X3, CN II-XII intact Psychiatric exam: Present: normal affect, normal mood Skin exam: Present: warm, dry, intact, normal color. Absent: rash Course Vital Signs 11/04/17 11/04/17 14:33 18:51 Temperature 97.7 F Pulse Rate 92 90 Respiratory 16 18 Rate Blood Pressure 163/83 174/91 O2 Sat by Pulse 98 100 Oximetry Medical Decision Making - Medical Decision Making 62-year-old male presents emergency room today with swelling and pain after his IV infiltrated from his fistula. His gases surgeon is Dr. Weiner from [facility]. Patient reports that he put ice over the area. He has some Bulla over the skin. I believe this is related to the ice on the skin. He has a very large collection of fluid on the shoulder and upper arm anterior aspect of the fistula. I am able to auscultate a bruit. We did do an ultrasound of the area. There is a 7 cm collection of fluid with internal debris anterior to the fistula. Concern for possibility of clot. I am able to auscultate a bruit within the fistula. His bleeding has stopped from his IV sites. It did take quite some time to rest complete the ultrasound due to a fall emergency department. After we discovered a possibility of clot and further needs for vascular surgery we discussed transfer to a larger facility. Patient will be transferred to Dr. Banuelos at [facility] for further evaluation by his vascular surgeon. He is adamant about going down a private vehicle. We did advise against this. Patient will be transferring private vehicle at this time. - Radiology Data Radiology results: report reviewed Doppler ultrasound completed. Further evaluation by vascular surgeon will be needed. Brachial veins are not adequately visualized due to presence of a large 7 cm collection with internal present clotted fistula no evidence of DVT within the internal jugular subclavian axillary her parent radial veins. Disposition Clinical Impression: AV fistula thrombosis, Intravenous infiltration Disposition: DC/TRNS INTERMEDIATE CARE FAC Condition: Good Is patient prescribed a controlled substance at d/c from ED?: No When asked, does pt state using other controlled substances?: No If prescribed controlled substance>3 days was MAPS reviewed?: No If opioid is for acute pain is fill amount 7 days or less?: No If Rx opioid, was Start Talking consent form obtained?: No Referrals: Scout Dailey MD [Primary Care Provider] - 1-2 days Time of Disposition: 19:44 - Out of Hospital Transfer - Req. Specs Out of Hospital Transfer - Requested Specifics: Other Emergency Center ([facility])
[2017-11-04 18:53] VITALS: BP 174/91; PULSE 90; RESP 18
--- NOTE | 2017-11-04 19:04 | US ---
EXAMINATION TYPE: US venous doppler duplex UE RT DATE OF EXAM: 11/04/2017 COMPARISON: 06/16/2015 CLINICAL HISTORY: 62-year-old male with Pain. Swelling. Had puncture from attempted dialysis today, did not do, arm became swollen and was sent home. Hx of fistula in right arm. SIDE PERFORMED: Right Right Arm: The subclavian, internal jugular, and axillary veins show satisfactory color flow and vasc ularity. The radial and ulnar veins are patent. Unable to adequately assess the brachial Vein's due t o the presence of a large cystic appearing lesion with internal debris= 7.0 x 6.7 cm. No internal va scularity. At lower portion of mass, a contiguous vessel was seen with internal flow. IMPRESSION: 1. Further evaluation by vascular surgery will be needed. The brachial veins were not adequately visu alized due to the presence of a large 7.0 cm collection with internal debris, possible clotted fistul a. 2. No evidence for DVT within the internal jugular, subclavian, axillary, or apparent radial/ulnar ve ins.
== END 2017-11-04 20:07 ==
LOC: EC 14:18
DX: T82.868A Thrombosis due to vascular prosthetic devices, implants and grafts, initial encounter (principal); T80.89XA Other complications following infusion, transfusion and therapeutic injection, initial encounter; I25.10 Atherosclerotic heart disease of native coronary artery without angina pectoris; I13.2 Hypertensive heart and chronic kidney disease with heart failure and with stage 5 chronic kidney disease, or end stage renal disease; I50.9 Heart failure, unspecified; N18.6 End stage renal disease; E11.22 Type 2 diabetes mellitus with diabetic chronic kidney disease; K21.9 Gastro-esophageal reflux disease without esophagitis; E78.5 Hyperlipidemia, unspecified; G47.30 Sleep apnea, unspecified; Z99.89 Dependence on other enabling machines and devices; Z94.0 Kidney transplant status; Z85.828 Personal history of other malignant neoplasm of skin; Z95.1 Presence of aortocoronary bypass graft; Z98.890 Other specified postprocedural states; Z79.4 Long term (current) use of insulin; Z79.899 Other long term (current) drug therapy
CPT/HCPCS: 99285

== ENCOUNTER → 2019-12-05 | Outpatient (CLI) | payer MEDICARE, BC ==
--- NOTE | 2019-12-05 16:41 | XR ---
EXAMINATION TYPE: XR chest 2V DATE OF EXAM: 12/05/2019 CLINICAL HISTORY: Cough for 3 months. TECHNIQUE: Frontal and lateral views of the chest are obtained. COMPARISON: Chest radiograph 03/07/2017 FINDINGS: Sternotomy wires with fracture of the superiormost wire redemonstrated. Unchanged cardiome parag. Mediastinal silhouette unchanged. There is prominence of the interstitial markings. Small left pleural effusion. No pneumothorax. The osseous structures are intact. IMPRESSION: 1. Cardiomegaly and pulmonary vascular edema, consistent with CHF. 2. Small left pleural effusion.
== END | disposition home or self-care (01) ==
LOC: RADXRMAIN 14:44
PROVIDERS: ATTEND Internal Medicine
DX: I51.7 Cardiomegaly (principal); J90 Pleural effusion, not elsewhere classified
CPT/HCPCS: 71046

== ENCOUNTER → 2020-09-09 | Outpatient (CLI) | payer MEDICARE, BC ==
--- NOTE | 2020-09-09 14:27 | CT ---
EXAMINATION TYPE: CT angio abd aorta w/Runoff DATE OF EXAM: 09/09/2020 COMPARISON: CTA chest August 30, 2011. HISTORY: Chronic foot wounds and limb ischemia. CT DLP: 1610.9 mGycm, Automated Exposure Control for Dose Reduction was Utilized. CONTRAST: CTA scan of the abdomen and pelvis with lower extremity runoff is performed with oral and without and with IV Contrast, patient injected with 125ml mL of Isovue 370. Runoff protocol with 3-D reconstruct ed images created on an independent workstation and reviewed. FINDINGS: VASCULAR: There is severe calcified plaque of the aorta with severe calcification of branch vessels m ost prominent involving smaller vessels correlating with history of long-standing chronic medical garry al disease. Presence of severe calcified plaque makes accurate evaluation of stenosis suboptimal due to blooming artifact. Patent celiac artery with stenosis approaching but under 50% sagittal image 49 at origin thought present. Significant stenosis at origin of the SMA thought present sagittal image 5 1. . No significant stenosis with poor opacification of bilateral fairly small caliber renal arteries . LISSET is patent. No AAA. Persistent severe calcified plaque in the common iliac arteries bilaterally without significant steno sis clearly seen. More mild to moderate calcified plaque in the external iliac arteries bilaterally w ithout significant stenosis. Right pelvic arterial graft to renal transplant shows patency. More severe calcified plaque right common femoral artery extending into the superficial femoral arter y branch, significant stenosis is likely present in the right groin at level of the common femoral ar karen for reference coronal image 26. Severe mixed plaque extends into the superficial femoral artery I suspect additional areas of significant stenosis distal aspect from reference coronal image 39. Sev ere calcified plaque extends into the popliteal artery where there is significant stenosis likely pre sent above the knee, for reference coronal image 48. More moderate plaque seen below the knee into th e distal popliteal artery. There is significant focal stenosis at the bifurcation with multilevel sig nificant stenosis and occlusion in the anterior tibial artery after its origin. Severe calcified plaq ue limits evaluation in the tibial peroneal artery which is short segment, there is quick bifurcation with improved flow in the posterior tibial and peroneal arteries. There is improved vessel flow exte nding into the mid and distal leg. Severe calcified plaque left common femoral artery without significant stenosis. [id number] p laque extends into superficial and deep femoral arteries. Areas of significant stenosis long course o f the superficial femoral artery difficult to exclude due to severe calcified plaque. Severe plaque e xtends into the popliteal artery. There is more severe plaque with poor visualized flow near level of knee joint on the left. Areas of absent flow or occlusion are suspected. Some reconstitution at bifu rcation is present. Patent anterior tibial artery with severe calcified plaque along its course. Occl uded tibial peroneal trunk with bifurcation and subsequent improved flow after bifurcation. Some sati sfactory 3 and 2 vessel flow mid to distal leg level noted. LUNG BASES: Partial visualization of sternal wires and mediastinal clips from CABG procedure. Partial visualization of cardiomegaly. There is tiny left pleural effusion or fluid collection that does not completely layer dependently on current study is slightly smaller from 2012 study. There is posterio r 4.3 x 2.2 cm left basilar mass or masslike consolidation more prominent than prior. Follow-up advis ed. LIVER/GB: Small dependent gallstones in the gallbladder. No surrounding inflammatory change. PANCREAS: Moderate atrophy at level of pancreatic head. SPLEEN: Splenomegaly measuring 17.5 cm long axis axial image 42. This may warrant further nonemergen t clinical workup. ADRENALS: There is 1.4 cm low dense left adrenal mass consistent with benign lipid rich adenoma. KIDNEYS: Small sizes to bilateral kidneys with marked cortical thinning bilaterally. There are bilate ral hypodense lesions favoring thin-walled cysts. No hydronephrosis. Findings consistent with long-st anding chronic medical renal disease. There is right pelvic renal transplant with cortical thinning s uspected failure. BOWEL: No significant abnormality is seen. PROSTATE/SEMINAL VESICLES: Prostate gland not enlarged. Adjacent scattered pelvic phleboliths. LYMPH NODES: No greater than 1cm abdominal or pelvic lymph nodes are appreciated. OSSEOUS STRUCTURES: No significant abnormality is seen. LOWER EXTREMITIES: [id number] tricompartment joint space loss and spurring in both knees. OTHER: No significant additional abnormality is seen. IMPRESSION: 1. Presence of long-standing chronic medical renal disease and severe calcified plaque makes CT evalu ation is suboptimal as this causes blooming artifact. There is significant stenosis in the SMA identi fied. There is significant stenosis at level of the common femoral arteries bilaterally right more pr ominent than left. Significant stenosis in the superficial femoral arteries bilaterally right greater than left. Significant stenosis in the popliteal arteries this is most pronounced in the left lower extremity distal aspect. Significant stenosis bilateral anterior tibial arteries. Improved peripheral flow to and 3 vessel flow mid to distal legs bilaterally of uncertain etiology possible from patent collaterals. 2. Nonsimple left pleural effusion or fluid collection with slightly suspicious posterior left basila r mass and/or possibly masslike consolidation. Advise follow-up contrast enhanced chest CT to evaluat e for possible additional nodules and/or thoracic adenopathy.
== END | disposition home or self-care (01) ==
LOC: RADCTMAIN 12:04
PROVIDERS: ATTEND Surgery
DX: I70.203 Unspecified atherosclerosis of native arteries of extremities, bilateral legs (principal); J90 Pleural effusion, not elsewhere classified
CPT/HCPCS: 75635; Q9967

== ENCOUNTER 2020-09-15 14:58 | Inpatient (IN) | payer MEDICARE, BC ==
[2020-09-15] MEDS ORDERED: DIPH,PERTUS(ACELL)TETVAC-LF 0.5 ML VIAL IM ONE (15:32)
[2020-09-15] MEDS ORDERED: SODIUM CHLORIDE 0.9% 500 ML 500 ML IV ONE (15:34)
[2020-09-15] MEDS ORDERED: MORPHINE SULFATE 2 MG/ML SYRINGE IVP ONE (15:35)
--- NOTE | 2020-09-15 15:45 | ED ---
Skin/Abscess/FB HPI - General Chief complaint: Skin/Abscess/Foreign Body Stated complaint: Middle Toe (LT) infection Time Seen by Provider: 09/15/20 15:06 Source: patient, family, RN notes reviewed Mode of arrival: wheelchair Limitations: no limitations - History of Present Illness Initial comments: 65-year-old male patient presents to the emergency room with complaints of 3 weeks of discoloration to his left foot, first third and fourth toes. Patient was seen at vascular with Dr. Martinez today and told to come to the emergency room for worsening necrosis of toes and increased pain. Patient states pain is 9 out of 10 and constant. Patient states received his second covid vaccine today. Has a history of diabetes, hypertension, renal disease with dialysis. Patient admits to being a pack-a-day smoker Patient denies any fevers, nausea, vomiting, or diarrhea. States last bowel movement was 2 days ago. Family member at bedside. MD complaint: discoloration, other (Necrotic middle toe, medial aspect of the fourth metatarsal, medial aspect of great toe) -: week(s) (3) Location: L foot Severity: severe Severity scale (1-10): 9 Quality: constant Consistency: constant Improves with: none Worsens with: palpation, movement Context: other (Vascular insufficiency) Associated symptoms: denies other symptoms Treatments Prior to Arrival: none - Related Data Home Medications Medication Instructions Recorded Confirmed allopurinoL [Zyloprim] 100 mg PO DAILY 05/16/16 09/15/20 Atorvastatin [Lipitor] 40 mg PO DAILY 03/07/17 09/15/20 Colchicine See Taper PO DIRECTED 09/15/20 09/15/20 FLUoxetine HCL [PROzac] 20 mg PO DAILY 09/15/20 09/15/20 Metoprolol Succinate [Toprol XL] 25 mg PO DAILY 09/15/20 09/15/20 Pregabalin [Lyrica] 25 mg PO DAILY 09/15/20 09/15/20 rOPINIRole HCL [Requip] 1 mg PO DAILY PRN 09/15/20 09/15/20 rOPINIRole HCL [Requip] 1 mg PO HS 09/15/20 09/15/20 traMADol HCL 50 mg PO BID PRN 09/15/20 09/15/20 Allergies Allergy/AdvReac Type Severity Reaction Status Date / Time No Known Allergies Allergy Verified 09/15/20 16:40 Review of Systems ROS Statement: Those systems with pertinent positive or pertinent negative responses have been documented in the HPI. ROS Other: All systems not noted in ROS Statement are negative. 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 History of Any Multi-Drug Resistant Organisms: None Reported Past Surgical History: Coronary Bypass/CABG, Heart Catheterization, Orthopedic Surgery Additional Past Surgical History / Comment(s): Recent transplant biopsy, vein mapping last week at [facility] in preparation for new fistula, meningioma benign brain tumor removed at [facility], (rt) kidney transplant 2013 at [facility], 5 vessel cabg, colonoscopy-clear, lt knee arthroscopy, rt arm fistulas with R upper arm fistula removed, forehead skin cancer removal. Past Anesthesia/Blood Transfusion Reactions: Motion Sickness Past Psychological History: No Psychological Hx Reported Smoking Status: Current some day smoker Past Alcohol Use History: None Reported Past Drug Use History: None Reported - Past Family History Father Family Medical History: Hypertension, Myocardial Infarction ([place]), Renal Disease Additional Family Medical History / Comment(s): Pt states his father had received blood, had a reaction-a [place] and at the age of 40yrs. Mother Family Medical History: Dementia Additional Family Medical History / Comment(s): Mother is 82 yrs old. Sister(s) Family Medical History: Hyperlipidemia, Renal Disease Additional Family Medical History / Comment(s): Sister is on hemodialysis. General Exam Limitations: no limitations General appearance: alert, in no apparent distress Head exam: Present: atraumatic, normocephalic, normal inspection Eye exam: Present: normal appearance, PERRL, EOMI. Absent: scleral icterus, conjunctival injection, nystagmus, periorbital swelling ENT exam: Present: normal exam, normal oropharynx, mucous membranes moist Neck exam: Present: normal inspection, full ROM. Absent: tenderness, meningismus, lymphadenopathy, thyromegaly Respiratory exam: Present: normal lung sounds bilaterally. Absent: respiratory distress, wheezes, rales, rhonchi, stridor, decreased breath sounds Cardiovascular Exam: Present: tachycardia. Absent: JVD GI/Abdominal exam: Present: soft, normal bowel sounds, other (Scar noted to right lower abdomen from a kidney transplant.). Absent: distended, tenderness, guarding, rebound, rigid Right Upper Arm exam: Present: full ROM, other (Dialysis graft) Elbow exam: Present: normal inspection, full ROM Forearm Wrist exam: Present: normal inspection, full ROM Hand Wrist exam: Present: normal inspection, full ROM Vascular: Present: normal capillary refill Left Knee exam: Present: normal inspection, full ROM Lower Leg exam: Present: normal inspection, full ROM. Absent: tenderness, swelling, ecchymosis, deformity, erythema Foot/Toe exam: Present: tenderness (Necrotic third metatarsal areas of necrosis to the great toe and medial aspect of the second metatarsal), swelling, erythema (Streaking redness from toes to ankle). Absent: normal inspection, deformity, dislocation, amputation, puncture wound Neurovascular tendon exam: Present: pulse deficit, abnormal cap refill, pallor ( Second metatarsal). Absent: no vascular compromise, extremity cold to touch Back exam: Present: normal inspection, full ROM. Absent: tenderness, CVA tenderness (R), CVA tenderness (L) Neurological exam: Present: alert, oriented X3, CN II-XII intact Psychiatric exam: Present: normal affect, normal mood Skin exam: Present: warm, dry, intact, normal color. Absent: rash, cyanosis, diaphoretic Course Vital Signs 09/15/20 09/15/20 15:02 16:05 Temperature 98.6 F Pulse Rate 108 H Respiratory 20 16 Rate Blood Pressure 135/66 O2 Sat by Pulse 97 Oximetry - Reevaluation(s) Reevaluation #1: 09/15/20 16:38 Unable to obtain left pedal pulse with Doppler or by palpation, posterior tibial pulse obtained via Doppler bot by palpation. Time: 16:38 Medical Decision Making - Medical Decision Making WBC count 11.2 with an elevated neutrophil count of 10.1, hemoglobin and hematocrit 12.8 and 38.6, creatinine 6.5 patient is dialysis patient. Alk phos is 172, total bili is 1.4 lactic acid is 2.2, pt received 500ml saline via IV. Pain alleviated from a 9 to a 6 with morphine 2 mg IV. Patient offered additional dosing and refused at this time. X-ray of the left foot shows no fracture dislocation, permeative appearance of the third and fourth distal phalanges which could represent osteomyelitis. Right Posterior tibial pulses via Doppler obtained however unable to obtain pedal pulses by palpation. Case discussed with Dr. Tenorio patient will be admitted to Dr. Rodriguez with vascular consult. - Lab Data Result diagrams: 09/15/20 13:23 09/15/20 13:23 Lab Results 09/15/20 09/15/20 09/15/20 Range/Units 13:23 13:23 13:23 WBC 11.2 H (3.8-10.6) k/uL RBC 4.19 L (4.30-5.90) m/uL Hgb 12.8 L (13.0-17.5) gm/dL Hct 38.6 L (39.0-53.0) % MCV 92.1 (80.0-100.0) fL MCH 30.5 (25.0-35.0) pg MCHC 33.2 (31.0-37.0) g/dL RDW 15.7 H (11.5-15.5) % Plt Count 157 (150-450) k/uL MPV 8.8 Neutrophils % 90 % Lymphocytes % 3 % Monocytes % 5 % Eosinophils % 1 % Basophils % 0 % Neutrophils # 10.1 H (1.3-7.7) k/uL Lymphocytes # 0.4 L (1.0-4.8) k/uL Monocytes # 0.6 (0-1.0) k/uL Eosinophils # 0.1 (0-0.7) k/uL Basophils # 0.0 (0-0.2) k/uL Sodium 135 L (137-145) mmol/L Potassium 4.0 (3.5-5.1) mmol/L Chloride 90 L (98-107) mmol/L Carbon Dioxide 28 (22-30) mmol/L Anion Gap 17 mmol/L BUN 26 H (9-20) mg/dL Creatinine 6.52 H (0.66-1.25) mg/dL Est GFR (CKD-EPI)AfAm 9 (>60 ml/min/1.73 sqM) Est GFR (CKD-EPI)NonAf 8 (>60 ml/min/1.73 sqM) Glucose 162 H (74-99) mg/dL Plasma Lactic Acid Hilton 2.2 H* (0.7-2.0) mmol/L Calcium 9.7 (8.4-10.2) mg/dL Total Bilirubin 1.4 H (0.2-1.3) mg/dL AST 16 L (17-59) U/L ALT 11 (4-49) U/L Alkaline Phosphatase 172 H (38-126) U/L Total Protein 7.1 (6.3-8.2) g/dL Albumin 4.0 (3.5-5.0) g/dL Influenza Type A (PCR) (Not Detectd) Influenza Type B (PCR) (Not Detectd) RSV (PCR) (Not Detectd) SARS-CoV-2 (PCR) (Not Detectd) 09/15/20 Range/Units 15:30 WBC (3.8-10.6) k/uL RBC (4.30-5.90) m/uL Hgb (13.0-17.5) gm/dL Hct (39.0-53.0) % MCV (80.0-100.0) fL MCH (25.0-35.0) pg MCHC (31.0-37.0) g/dL RDW (11.5-15.5) % Plt Count (150-450) k/uL MPV Neutrophils % % Lymphocytes % % Monocytes % % Eosinophils % % Basophils % % Neutrophils # (1.3-7.7) k/uL Lymphocytes # (1.0-4.8) k/uL Monocytes # (0-1.0) k/uL Eosinophils # (0-0.7) k/uL Basophils # (0-0.2) k/uL Sodium (137-145) mmol/L Potassium (3.5-5.1) mmol/L Chloride (98-107) mmol/L Carbon Dioxide (22-30) mmol/L Anion Gap mmol/L BUN (9-20) mg/dL Creatinine (0.66-1.25) mg/dL Est GFR (CKD-EPI)AfAm (>60 ml/min/1.73 sqM) Est GFR (CKD-EPI)NonAf (>60 ml/min/1.73 sqM) Glucose (74-99) mg/dL Plasma Lactic Acid Hilton (0.7-2.0) mmol/L Calcium (8.4-10.2) mg/dL Total Bilirubin (0.2-1.3) mg/dL AST (17-59) U/L ALT (4-49) U/L Alkaline Phosphatase (38-126) U/L Total Protein (6.3-8.2) g/dL Albumin (3.5-5.0) g/dL Influenza Type A (PCR) Not Detected (Not Detectd) Influenza Type B (PCR) Not Detected (Not Detectd) RSV (PCR) Not Detected (Not Detectd) SARS-CoV-2 (PCR) Not Detected (Not Detectd) Disposition Clinical Impression: Necrotic toes, Cellulitis of foot Disposition: ADMITTED IP TO THIS [facility] Condition: Fair Referrals: Wilian Zhang MD [Primary Care Provider] - 1-2 days Decision Date: 09/15/20 Decision Time: 17:27
[2020-09-15 15:49] LABS: Basophils % (A) 0 %; Eosinophils # (A) 0.1 k/uL (0-0.7); Eosinophils % (A) 1 %; HCT 38.6 % (39.0-53.0); HGB 12.8 gm/dL (13.0-17.5); Lymphocytes # (A) 0.4 k/uL (1.0-4.8); Lymphocytes % (A) 3 %; MCH 30.5 pg (25.0-35.0); MCHC 33.2 g/dL (31.0-37.0); MCV 92.1 fL (80.0-100.0); Mean Platelet Volume 8.8; Monocytes # (A) 0.6 k/uL (0-1.0); Monocytes % (A) 5 %; Neutrophils # (A) 10.1 k/uL (1.3-7.7); Neutrophils % (A) 90 %; Platelet Count 157 k/uL (150-450); RBC 4.19 m/uL (4.30-5.90); RDW 15.7 % (11.5-15.5); WBC 11.2 k/uL (3.8-10.6)
[2020-09-15 15:58] LABS: Calcium 9.7 mg/dL (8.4-10.2); Total Bilirubin 1.4 mg/dL (0.2-1.3); Total Protein 7.1 g/dL (6.3-8.2)
[2020-09-15] MEDS ORDERED: PIPERACILLIN-TAZOBACTAM 3.375 GM in SODIUM CHLORIDE 0.9% 100 ML IVPB STA (16:57)
[2020-09-15] MEDS ORDERED: VANCOMYCIN IV PER PHARMACY 1 EACH MISC MISCELLANE PRN ×2 (17:00→17:33)
[2020-09-15] MEDS ORDERED: VANCOMYCIN 1,500 MG in SODIUM CHLORIDE 0.9% 250 ML IVPB STA (17:05)
--- NOTE | 2020-09-15 17:08 | XR ---
EXAMINATION TYPE: XR foot complete LT DATE OF EXAM: 09/15/2020 COMPARISON: NONE HISTORY: Toe infections. pain. TECHNIQUE: AP, lateral, and oblique views of the left foot. FINDINGS: No acute fracture. No dislocation. There is degenerative change at the first metatarsophala ngeal joint. Decreased mineralization. There is cutaneous irregularity of the medial aspect of the fi rst toe. There is somewhat permeative appearance of the third and fourth distal phalanges. Large Achi lles and plantar enthesophytes. Vascular calcifications. No significant soft tissue swelling. IMPRESSION: 1. No acute fracture or dislocation. 2. Cutaneous irregularity of the medial first toe. 3. Decreased osseous mineralization. 4. Somewhat permeative appearance of the third and fourth distal phalanges. Differential includes oss eous demineralization versus osteomyelitis. Consider follow-up with MRI or three-phase nuclear medici ne bone scan as clinically indicated.
[2020-09-15] MEDS ORDERED: MORPHINE SULFATE 4 MG/ML SYRINGE IV PRN (17:18)
[2020-09-15] MEDS ORDERED: NALOXONE 0.4 MG/ML 1 ML VIAL IV PRN (17:18)
--- NOTE | 2020-09-15 17:26 | P.HPIM ---
History of Present Illness H&P Date: 09/15/20 Chief Complaint: Necrotic toe This is a 65-year-old white male who reported to the hospital because of history of 3 weeks of left third toe discoloration. he went to see vascular surgery as an outpatient and was instructed to report to the emergency room. He saw Dr. Martinez. Patient denies subjective fever or chills. Denies hematuria dysuria hematemesis or hematochezia. No nausea or vomiting. He has complained of pain in his left foot described as sharp, it was 9/10 but currently has improved. He denies dizziness or loss of consciousness. He gets dialysis TTS. Daughter is at bedside. Review of Systems 10 systems reviewed, pertinent positive and negative findings as in HPI. 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 History of Any Multi-Drug Resistant Organisms: None Reported Past Surgical History: Coronary Bypass/CABG, Heart Catheterization, Orthopedic Surgery Additional Past Surgical History / Comment(s): Recent transplant biopsy, vein mapping last week at [facility] in preparation for new fistula, meningioma benign brain tumor removed at [facility], (rt) kidney transplant 2013 at [facility], 5 vessel cabg, colonoscopy-clear, lt knee arthroscopy, rt arm fistulas with R upper arm fistula removed, forehead skin cancer removal. Past Anesthesia/Blood Transfusion Reactions: Motion Sickness Past Psychological History: No Psychological Hx Reported Smoking Status: Current some day smoker Past Alcohol Use History: None Reported Past Drug Use History: None Reported - Past Family History Father Family Medical History: Hypertension, Myocardial Infarction ([place]), Renal Disease Additional Family Medical History / Comment(s): Pt states his father had received blood, had a reaction-a [place] and at the age of 40yrs. Mother Family Medical History: Dementia Additional Family Medical History / Comment(s): Mother is 82 yrs old. Sister(s) Family Medical History: Hyperlipidemia, Renal Disease Additional Family Medical History / Comment(s): Sister is on hemodialysis. Medications and Allergies Home Medications Medication Instructions Recorded Confirmed Type allopurinoL [Zyloprim] 100 mg PO DAILY 05/16/16 09/15/20 History Atorvastatin [Lipitor] 40 mg PO DAILY 03/07/17 09/15/20 History Colchicine See Taper PO DIRECTED 09/15/20 09/15/20 History FLUoxetine HCL [PROzac] 20 mg PO DAILY 09/15/20 09/15/20 History Metoprolol Succinate [Toprol XL] 25 mg PO DAILY 09/15/20 09/15/20 History Pregabalin [Lyrica] 25 mg PO DAILY 09/15/20 09/15/20 History rOPINIRole HCL [Requip] 1 mg PO DAILY PRN 09/15/20 09/15/20 History rOPINIRole HCL [Requip] 1 mg PO HS 09/15/20 09/15/20 History traMADol HCL 50 mg PO BID PRN 09/15/20 09/15/20 History Allergies Allergy/AdvReac Type Severity Reaction Status Date / Time No Known Allergies Allergy Verified 09/15/20 16:40 Physical Exam Vitals: Vital Signs Temp Pulse Resp BP Pulse Ox 09/15/20 16:05 16 09/15/20 15:02 98.6 F 108 H 20 135/66 97 Intake and Output 09/15/20 09/15/20 09/15/20 06:59 14:59 22:59 Other: Weight 83.915 kg Constitutional: No acute distress, conversant, pleasant Eyes: Anicteric sclerae, moist conjunctiva, no lid-lag, PERRLA ENMT: NC/AT Neck:Supple, FROM, no masses, or JVD, No carotid bruits; No thyromegaly Lungs: Clear to auscultation, Clear to percussion, Normal respiratory effort, no accessory muscle use Cardiovascular: Heart regular in rate and rhythm, No murmurs, gallops, or rubs no peripheral edema Abdominal: Soft Nontender, nom distended, no guarding, no rebound or rigidity, Normoactive bowel sounds No hepatomegaly, No splenomegaly, No palpable mass No abdominal wall hernia noted Skin: Left foot toe discoloration including first third and fourth distal Extremities: Toe discoloration Psychiatric: Alert and oriented to person, place and time, Appropriate affect Intact judgement Neuro: Muscles Strength 5/5 in all 4 extremities, Sensation to light touch grossly present throughout, Cranial nerves II-XII grossly intact. No focal sensory deficits Results CBC & Chem 7: 09/15/20 13:23 09/15/20 13:23 Labs: Abnormal Lab Results - Last 24 Hours (Table) 09/15/20 09/15/20 09/15/20 Range/Units 13:23 13:23 13:23 WBC 11.2 H (3.8-10.6) k/uL RBC 4.19 L (4.30-5.90) m/uL Hgb 12.8 L (13.0-17.5) gm/dL Hct 38.6 L (39.0-53.0) % RDW 15.7 H (11.5-15.5) % Neutrophils # 10.1 H (1.3-7.7) k/uL Lymphocytes # 0.4 L (1.0-4.8) k/uL Sodium 135 L (137-145) mmol/L Chloride 90 L (98-107) mmol/L BUN 26 H (9-20) mg/dL Creatinine 6.52 H (0.66-1.25) mg/dL Glucose 162 H (74-99) mg/dL Plasma Lactic Acid Hilton 2.2 H* (0.7-2.0) mmol/L Total Bilirubin 1.4 H (0.2-1.3) mg/dL AST 16 L (17-59) U/L Alkaline Phosphatase 172 H (38-126) U/L Assessment and Plan Plan: 1. Necrotic left third toe likely associated with diabetes: Consult vascular surgery, pain control as indicated. 2. Left foot cellulitis: Start IV vancomycin and cefepime. Obtain cultures. 3. End-stage renal disease on hemodialysis secondary to diabetes and hypertension: Continue hemodialysis TTS, consult nephrology. 4. Diabetes type 2 with end-stage renal disease: Place on insulin sliding scale 5. Coronary artery disease without evidence of acute coronary syndrome: With no evidence of acute coronary syndrome: Monitor 6. Hyperlipidemia: Continue statin 7. Gout without acute attack: Continue allopurinol 8. Depression: Continue Prozac 9. Essential hypertension: Continue metoprolol 10. Restless leg syndrome: Continue Requip Admit inpatient DVT prophylaxis: SCDs Disposition: Home in 2-3 days pending clinical progression
[2020-09-15] MEDS ORDERED: HYDROmorphone 1 MG/ML 1 ML SYRINGE IM PRN (17:36)
[2020-09-15] MEDS ORDERED: ONDANSETRON 4 MG/2 ML VIAL IVP PRN (17:37)
[2020-09-15 19:51] LABS: Glucose,Whole Blood 225 mg/dL (75-99)
[2020-09-16] MEDS ORDERED: PIPERACILLIN-TAZOBACTAM 3.375 GM in SODIUM CHLORIDE 0.9% 100 ML IVPB SCH ×2
[2020-09-16 07:10] LABS: Glucose,Whole Blood 192 mg/dL (75-99)
[2020-09-16] MEDS: PREGABALIN 25 MG CAP PO SCH (08:12)
[2020-09-16] MEDS: allopurinoL 100 MG TAB PO SCH (08:12)
[2020-09-16] MEDS: FLUoxetine HCL 20 MG CAP PO SCH (08:12)
[2020-09-16] MEDS: ATORVASTATIN 40 MG TAB PO SCH (08:12)
[2020-09-16] MEDS: METOPROLOL SUCCINATE (ER) 25 MG TAB.ER.24H PO SCH (08:12)
[2020-09-16] MEDS: PIPERACILLIN-TAZOBACTAM 3.375 GM in SODIUM CHLORIDE 0.9% 100 ML IVPB SCH ×2 (08:13→20:33)
[2020-09-16] MEDS ORDERED: HYDROmorphone 1 MG/ML 1 ML SYRINGE IM PRN (08:26)
--- NOTE | 2020-09-16 09:08 | P.PN ---
Subjective Progress Note Date: 09/16/20 Feels okay, remains afebrile. No chest pain no abdominal pain nausea or vomiting. Objective - Vital Signs Vital signs: Vital Signs Temp 98.2 F 09/16/20 07:44 Pulse 90 09/16/20 07:44 Resp 17 09/16/20 07:44 BP 107/59 09/16/20 07:44 Pulse Ox 97 09/16/20 07:44 Intake & Output 09/15/20 09/16/20 09/16/20 18:59 06:59 18:59 Weight 83.915 kg 83.915 kg Other: Voiding Method Toilet # Voids 1 - Exam Constitutional: No acute distress, conversant, pleasant Eyes: Anicteric sclerae, moist conjunctiva, no lid-lag, PERRLA ENMT: NC/AT Neck:Supple, FROM Lungs: Clear to auscultation, Clear to percussion, Normal respiratory effort, no accessory muscle use Cardiovascular: Heart regular in rate and rhythm, No murmurs, gallops, or rubs no peripheral edema Abdominal: Soft Nontender, nom distended, no guarding, no rebound or rigidity, Normoactive bowel sounds Skin: Left foot toe discoloration including first third and fourth distal. Left foot cellulitis improved Extremities: Toe discoloration Psychiatric: Alert and oriented to person, place and time, Appropriate affect Intact judgement Neuro: Muscles Strength 5/5 in all 4 extremities, Sensation to light touch grossly present throughout, Cranial nerves II-XII grossly intact. No focal sensory deficits - Labs CBC & Chem 7: 09/15/20 13:23 09/15/20 13:23 Labs: Abnormal Lab Results - Last 24 Hours (Table) 09/15/20 09/15/20 09/15/20 Range/Units 13:23 13:23 13:23 WBC 11.2 H (3.8-10.6) k/uL RBC 4.19 L (4.30-5.90) m/uL Hgb 12.8 L (13.0-17.5) gm/dL Hct 38.6 L (39.0-53.0) % RDW 15.7 H (11.5-15.5) % Neutrophils # 10.1 H (1.3-7.7) k/uL Lymphocytes # 0.4 L (1.0-4.8) k/uL Sodium 135 L (137-145) mmol/L Chloride 90 L (98-107) mmol/L BUN 26 H (9-20) mg/dL Creatinine 6.52 H (0.66-1.25) mg/dL Glucose 162 H (74-99) mg/dL POC Glucose (mg/dL) (75-99) mg/dL Plasma Lactic Acid Hilton 2.2 H* (0.7-2.0) mmol/L Total Bilirubin 1.4 H (0.2-1.3) mg/dL AST 16 L (17-59) U/L Alkaline Phosphatase 172 H (38-126) U/L 09/15/20 09/16/20 Range/Units 19:49 07:08 WBC (3.8-10.6) k/uL RBC (4.30-5.90) m/uL Hgb (13.0-17.5) gm/dL Hct (39.0-53.0) % RDW (11.5-15.5) % Neutrophils # (1.3-7.7) k/uL Lymphocytes # (1.0-4.8) k/uL Sodium (137-145) mmol/L Chloride (98-107) mmol/L BUN (9-20) mg/dL Creatinine (0.66-1.25) mg/dL Glucose (74-99) mg/dL POC Glucose (mg/dL) 225 H 192 H (75-99) mg/dL Plasma Lactic Acid Hilton (0.7-2.0) mmol/L Total Bilirubin (0.2-1.3) mg/dL AST (17-59) U/L Alkaline Phosphatase (38-126) U/L Assessment and Plan Plan: 1. Necrotic left third toe likely associated with diabetes: Consult vascular surgery, pain control as indicated. Continue current management. 2. Left foot cellulitis: Continue vancomycin and Zosyn, pharmacy dosing. 3. End-stage renal disease on hemodialysis secondary to diabetes and hypertension: Continue hemodialysis TTS, consult nephrology. Continue renal replacement therapy as per schedule. 4. Diabetes type 2 with end-stage renal disease: Continue on insulin sliding scale 5. Coronary artery disease without evidence of acute coronary syndrome: With no evidence of acute coronary syndrome: Monitor 6. Hyperlipidemia: Continue statin 7. Gout without acute attack: Continue allopurinol 8. Depression: Continue Prozac 9. Essential hypertension: Continue metoprolol 10. Restless leg syndrome: Continue Requip Admit inpatient DVT prophylaxis: SCDs Disposition: Home in 1-2 days pending clinical progression
[2020-09-16] MEDS: HYDROmorphone 1 MG/ML 1 ML SYRINGE IVP PRN ×2 (09:53→14:23)
[2020-09-16] MEDS: SODIUM CHLORIDE 0.9% 1,000 ML IV SCH ×2 (09:54→20:33)
--- NOTE | 2020-09-16 10:42 | P.GSCN ---
History of Present Illness Consult date: 09/16/20 Reason for Consult: Necrotic toe on left foot Requesting physician: Wilian Zhang History of present illness: This is a pleasant 65-year-old white male who presented to the hospital because of discoloration of the third and fourth toe on his left foot. He states that this is been worsening over the last 3-4 weeks. He has seen Dr. Chou from vascular surgery as an outpatient and was instructed to report to the emergency room. He denies any fever or chills, abdominal pain, shortness of breath or chest pain. He has a past medical history that includes coronary artery disease status post CABG, heart failure, diabetes mellitus, end-stage renal disease on dialysis with history of kidney transplant 2012, GERD, hyperlipidemia, hypertension, prostate disorder, and obstructive sleep apnea on CPAP. He was also a pack-a-day smoker for 20 years, he quit within the last 5-10 years. He states he does have some difficulty gets tired easily walking just to the end of the driveway at times. He had a CT angiogram of abdominal aorta with runoff on 09/09/2020 impression states her significant stenosis in the SMA, significant stenosis at the level of the common femoral arteries bilaterally right more prominent than left. Significant stenosis in the superficial femoral arteries bilaterally right greater than left. Significant stenosis in the popliteal arteries this is most pronounced in the left lower extremity distal aspect. Significant stenosis bilateral anterior tibial arteries. Improved peripheral flow to and three-vessel flow mid to distal legs bilaterally of uncertain etiology possible from patent collaterals. 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 History of Any Multi-Drug Resistant Organisms: None Reported Past Surgical History: Coronary Bypass/CABG, Heart Catheterization, Orthopedic Surgery Additional Past Surgical History / Comment(s): Recent transplant biopsy, vein mapping last week at [facility] in preparation for new fistula, meningioma benign brain tumor removed at [facility], (rt) kidney transplant 2013 at [facility], 5 vessel cabg, colonoscopy-clear, lt knee arthroscopy, rt arm fistulas with R upper arm fistula removed, forehead skin cancer removal. 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 Pt states he has anxiety and depression and is on medication for this but he feels the medications do not work that well. He states his depression is stable and he has never had thoughts of suicide. Smoking Status: Current some day smoker Past Alcohol Use History: None Reported Additional Past Alcohol Use History / Comment(s): Quit smoking approximately 5 months ago,previous to that he smoked for 25 years. Past Drug Use History: None Reported - Past Family History Father Family Medical History: Hypertension, Myocardial Infarction ([place]), Renal Disease Additional Family Medical History / Comment(s): Pt states his father had received blood, had a reaction-a [place] and at the age of 40yrs. Mother Family Medical History: Dementia Additional Family Medical History / Comment(s): Mother is 82 yrs old. Sister(s) Family Medical History: Hyperlipidemia, Renal Disease Additional Family Medical History / Comment(s): Sister is on hemodialysis. Medications and Allergies Home Medications Medication Instructions Recorded Confirmed Type allopurinoL [Zyloprim] 100 mg PO DAILY 05/16/16 09/15/20 History Atorvastatin [Lipitor] 40 mg PO DAILY 03/07/17 09/15/20 History Colchicine See Taper PO DIRECTED 09/15/20 09/15/20 History FLUoxetine HCL [PROzac] 20 mg PO DAILY 09/15/20 09/15/20 History Metoprolol Succinate [Toprol XL] 25 mg PO DAILY 09/15/20 09/15/20 History Pregabalin [Lyrica] 25 mg PO DAILY 09/15/20 09/15/20 History rOPINIRole HCL [Requip] 1 mg PO DAILY PRN 09/15/20 09/15/20 History rOPINIRole HCL [Requip] 1 mg PO HS 09/15/20 09/15/20 History traMADol HCL 50 mg PO BID PRN 09/15/20 09/15/20 History Allergies Allergy/AdvReac Type Severity Reaction Status Date / Time No Known Allergies Allergy Verified 09/15/20 16:40 Surgical - Exam Vital Signs Temp Pulse Resp BP Pulse Ox 98.6 F 108 H 20 135/66 97 09/15/20 15:02 09/15/20 15:02 09/15/20 15:02 09/15/20 15:02 09/15/20 15:02 General appearance: The patient is alert, oriented, in no acute distress. HET: Head is normocephalic and atraumatic. ns. Neck: Supple without lymphadenopathy. Trachea midline. Heart: S1 S2. Regular rate and rhythm. Lungs: Clear to auscultation Abdomen: Soft, nontender, nondistended. Extremities: Dorsal aspect of left foot with cellulitis to mid forefoot. Dry gangrene to the lateral and plantar aspect of the great toe. Light gangrene to the third and fourth toes. Nonpalpable dorsalis pedis and posterior tibialis pulses. Palpable bilateral femoral and popliteal pulses. Neurological: No focal deficits. Strength and sensation are grossly intact. Results - Labs 09/15/20 13:23 09/15/20 13:23 Abnormal Lab Results - Last 24 Hours (Table) 09/15/20 09/15/20 09/15/20 Range/Units 13:23 13:23 13:23 WBC 11.2 H (3.8-10.6) k/uL RBC 4.19 L (4.30-5.90) m/uL Hgb 12.8 L (13.0-17.5) gm/dL Hct 38.6 L (39.0-53.0) % RDW 15.7 H (11.5-15.5) % Neutrophils # 10.1 H (1.3-7.7) k/uL Lymphocytes # 0.4 L (1.0-4.8) k/uL Sodium 135 L (137-145) mmol/L Chloride 90 L (98-107) mmol/L BUN 26 H (9-20) mg/dL Creatinine 6.52 H (0.66-1.25) mg/dL Glucose 162 H (74-99) mg/dL POC Glucose (mg/dL) (75-99) mg/dL Plasma Lactic Acid Hilton 2.2 H* (0.7-2.0) mmol/L Total Bilirubin 1.4 H (0.2-1.3) mg/dL AST 16 L (17-59) U/L Alkaline Phosphatase 172 H (38-126) U/L 09/15/20 09/16/20 Range/Units 19:49 07:08 WBC (3.8-10.6) k/uL RBC (4.30-5.90) m/uL Hgb (13.0-17.5) gm/dL Hct (39.0-53.0) % RDW (11.5-15.5) % Neutrophils # (1.3-7.7) k/uL Lymphocytes # (1.0-4.8) k/uL Sodium (137-145) mmol/L Chloride (98-107) mmol/L BUN (9-20) mg/dL Creatinine (0.66-1.25) mg/dL Glucose (74-99) mg/dL POC Glucose (mg/dL) 225 H 192 H (75-99) mg/dL Plasma Lactic Acid Hilton (0.7-2.0) mmol/L Total Bilirubin (0.2-1.3) mg/dL AST (17-59) U/L Alkaline Phosphatase (38-126) U/L Diabetes panel 09/15/20 Range/Units 13:23 Sodium 135 L (137-145) mmol/L Potassium 4.0 (3.5-5.1) mmol/L Chloride 90 L (98-107) mmol/L Carbon Dioxide 28 (22-30) mmol/L BUN 26 H (9-20) mg/dL Creatinine 6.52 H (0.66-1.25) mg/dL Glucose 162 H (74-99) mg/dL Calcium 9.7 (8.4-10.2) mg/dL AST 16 L (17-59) U/L ALT 11 (4-49) U/L Alkaline Phosphatase 172 H (38-126) U/L Total Protein 7.1 (6.3-8.2) g/dL Albumin 4.0 (3.5-5.0) g/dL Calcium panel 09/15/20 Range/Units 13:23 Calcium 9.7 (8.4-10.2) mg/dL Albumin 4.0 (3.5-5.0) g/dL Pituitary panel 09/15/20 Range/Units 13:23 Sodium 135 L (137-145) mmol/L Potassium 4.0 (3.5-5.1) mmol/L Chloride 90 L (98-107) mmol/L Carbon Dioxide 28 (22-30) mmol/L BUN 26 H (9-20) mg/dL Creatinine 6.52 H (0.66-1.25) mg/dL Glucose 162 H (74-99) mg/dL Calcium 9.7 (8.4-10.2) mg/dL Adrenal panel 09/15/20 Range/Units 13:23 Sodium 135 L (137-145) mmol/L Potassium 4.0 (3.5-5.1) mmol/L Chloride 90 L (98-107) mmol/L Carbon Dioxide 28 (22-30) mmol/L BUN 26 H (9-20) mg/dL Creatinine 6.52 H (0.66-1.25) mg/dL Glucose 162 H (74-99) mg/dL Calcium 9.7 (8.4-10.2) mg/dL Total Bilirubin 1.4 H (0.2-1.3) mg/dL AST 16 L (17-59) U/L ALT 11 (4-49) U/L Alkaline Phosphatase 172 H (38-126) U/L Total Protein 7.1 (6.3-8.2) g/dL Albumin 4.0 (3.5-5.0) g/dL - Imaging Additional studies: Left foot x-ray: No acute fracture or dislocation. Cutaneous irregularity of the medial first toe. Decreased osseous mineralization. Somewhat permeative appearance of the third and fourth distal phalanges. Differential osseous demineralization versus osteomyelitis. Consider follow-up with MRI or three- phase nuclear medicine bone scan. He had a CT angiogram of abdominal aorta with runoff on 09/09/2020 impression states her significant stenosis in the SMA, significant stenosis at the level of the common femoral arteries bilaterally right more prominent than left. Significant stenosis in the superficial femoral arteries bilaterally right greater than left. Significant stenosis in the popliteal arteries this is most pronounced in the left lower extremity distal aspect. Significant stenosis bilateral anterior tibial arteries. Improved peripheral flow to and three- vessel flow mid to distal legs bilaterally of uncertain etiology possible from patent collaterals. Assessment and Plan Assessment: 1. Left foot third and fourth toe gangrene with possible osteomyelitis 2. Peripheral arterial disease 3. History of coronary artery disease, status post CABG 4. Diabetes mellitus 5. End-stage renal disease on hemodialysis and status post kidney transplant 6. Hypertension 7. Hyperlipidemia 8. Obstructive sleep apnea on CPAP Plan: 1. Continue IV antibiotics as ordered 2. Keep nothing by mouth 3. Normal saline at 75 mL per hour 4. Plan for left foot third and fourth toe amputation today 5. Plan for left lower extremity angiogram with revascularization on 09/18/2020 6. Hemodialysis as scheduled per nephrology Thank you for this consultation, we will continue to follow The impression and plan of care has been dictated as directed. Dr. Macias I performed a history and examination of this patient, discussed the same with the dictator. I agree with the dictator's note ,documented as a scribe. Any additional findings or plans will be noted.
[2020-09-16 12:06] LABS: Glucose,Whole Blood 219 mg/dL (75-99)
[2020-09-16] MEDS ORDERED: VANCOMYCIN 1,500 MG in SODIUM CHLORIDE 0.9% 250 ML IVPB ONE (13:00)
[2020-09-16 14:25] LABS: ALT 11 U/L (4-49); AST 18 U/L (17-59); African American GFR (CKD) 7 (>60 ml/min/1.73 sqM); Albumin 3.5 g/dL (3.5-5.0); Albumin/Globulin Ratio 1.3; Alkaline Phosphatase 163 U/L (38-126); Anion Gap 18 mmol/L; Blood Urea Nitrogen 39 mg/dL (9-20); Calcium 9.6 mg/dL (8.4-10.2); Carbon Dioxide 24 mmol/L (22-30); Chloride 90 mmol/L (98-107); Globulin 2.7 g/dL; Glucose 203 mg/dL (74-99); Non-African American GFR(CKD) 6 (>60 ml/min/1.73 sqM); Sodium 132 mmol/L (137-145); Total Bilirubin 1.7 mg/dL (0.2-1.3); Total Protein 6.2 g/dL (6.3-8.2)
[2020-09-16] MEDS ORDERED: IV FLUID CONTINUATION 1,000 ML IV ONE ×2 (15:38)
--- NOTE | 2020-09-16 15:46 | CONS ---
CONSULTATION REASON FOR CONSULT: End-stage renal disease. HISTORY OF PRESENT ILLNESS: Patient is a 65-year-old male with end-stage renal disease, maintained on hemodialysis on a Monday, , Monday schedule admitted with complaints of worsening pain and discoloration of his left 3rd toe. The patient was going to the wound clinic and has been evaluated by Vascular Surgery as outpatient. He has been seen by Dr. Macias here from Vascular Surgery and the patient is scheduled for lower extremity angiogram and revascularization. No other complaints currently. PAST MEDICAL HISTORY: End-stage renal disease, anemia of chronic disease, CKD mineral bone disorder, hyperparathyroidism, history of renal transplant which failed, type 2 diabetes, BPH, retinopathy, history of skin cancer. PAST SURGICAL HISTORY: Cardiac catheterization, renal transplant, AV fistula, colonoscopy, right knee arthroscopy, removal of brain tumor which was meningioma. SOCIAL HISTORY: Positive for smoking. No history of drug abuse or alcohol abuse. MEDICATIONS: Medications prior to admission included Zyloprim, Lipitor, colchicine, Prozac, Toprol, Lyrica, Requip, tramadol. ALLERGIES: None. PHYSICAL EXAMINATION: Patient is comfortable, awake, alert, oriented x3, not in any acute distress. Blood pressure was 116/60, heart rate 92 per minute. He is afebrile. EXAMINATION OF THE HEART: S1, S2. EXAMINATION OF THE LUNGS: Bilateral breath sounds are heard. Abdomen is soft, nontender. Examination of lower extremities shows no evidence of edema. Patient has gangrenous changes in his left third toe as well as his big toe on the lateral aspect. There is some erythema noted around it. [employer]PER[employer] exam otherwise grossly intact. Patient moving all 4 extremities. LABS: Labs show sodium 135, potassium 4.0, BUN 26, creatinine 6.52. Lactic acid 2.2. ASSESSMENT: 1. End-stage renal disease, on hemodialysis on a Monday, , Monday schedule. We will arrange for hemodialysis tomorrow. 2. Gangrene in the left 3rd toe being followed by Vascular Surgery scheduled for left lower extremity angiogram and possible revascularization on 09/18. 3. Type 2 diabetes. 4. Chronic kidney disease mineral bone disorder. 5. Hypertension. PLAN: Hemodialysis in a.m. Resume phosphate binders that patient should be taking at home. Thank you for this consultation. Will continue to follow the patient with you during his hospitalization. MMODL / IJN: [id number] /
[2020-09-16 15:56] LABS: Glucose,Whole Blood 219 mg/dL (75-99)
[2020-09-16] MEDS ORDERED: LIDOCAINE 1% INJ 10MG/ML (20 ML MDV) ONE (16:19)
[2020-09-16] MEDS ORDERED: MIDAZOLAM 2 MG/2 ML VIAL IVP ONE (16:22)
--- NOTE | 2020-09-16 16:32 | P.ANPRN ---
Procedure Note - Anesthesia - Nerve Block Performed Left Other (see comment) Single Time Out Performed: Yes (1621) Date of Procedure: 09/16/20 Procedure Start Time: 16:22 Procedure Stop Time: 16:30 Location of Patient: PreOp Indication: Acute Post-Operative Pain, Analgesia, Requested by Surgeon Specifically requested for management of pain by DrIrma: Reyna Macias Sedation Type: Sedate with meaningful contact maintained Preparation: Sterile Prep Position: Supine Catheter: None Needle Gauge: Other (see comment) (25 G) Ultrasound used to visualize needle placement: No Ultrasound used to observe medication spread: No Injectate: Other (see comment) (20 mL 0.5% ropivacaine, 10 mL 1% lidocaine) Blood Aspirated: No Pain Paresthesia on Injection Noted: No Resistance on Injection: Normal Events: Other (see comment) (Procedure: ankle block to block superficial peroneal, deep peroneal, sural, saphenous, and posterior tibial nerves via the landmark approach. 5 cc was used at each site except for superficial peroneal nerve, 10 cc was used)
[2020-09-16] MEDS ORDERED: MIDAZOLAM 2 MG/2 ML VIAL ONE (18:07)
[2020-09-16] MEDS ORDERED: fentaNYL (PF) 50 MCG/ML 2 ML AMP ONE (18:07)
[2020-09-16] MEDS ORDERED: PHENYLEPHRINE-0.9% NACL SYG 1,000 MCG/10 ML SYRINGE ONE (18:07)
[2020-09-16] MEDS ORDERED: KETAMINE 10 MG/ML 20 ML VIAL ONE (18:07)
[2020-09-16] MEDS ORDERED: PROPOFOL 10 MG/ML 20 ML VIAL IV ONE (18:07)
[2020-09-16] MEDS: CALCIUM ACETATE 667 MG TAB PO SCH (18:21)
--- NOTE | 2020-09-16 18:56 | P.OP ---
Date of Procedure: 09/16/20 Description of Procedure: Preoperative diagnosis: [gangrene left third toe, surrounding cellulitis, great toe wound, fourth toe wound] Postoperative diagnosis: Same Procedure: [#1 left third toe amputation, resultant wound 3 x 1 x 1.4 to bone #2 left great toe debridement sharp excisinal to subcutaneous fat 3.5x1.5x0.2 #3 left fourth toe sharp excisional debridement to subcutaneous fat 2 x 1.5 x 0.2] Surgeon: Reyna Macias D.O. EBL: minimal IV fluids: [see records] Urine output: [none] Drains:none Complications: [none immediately apparent] Condition: [stable to recovery] Operative indication and findings: The patient is a 65-year-old male with previous dry gangrene and peripheral arterial disease. He was recently seen in the office and was found to have surrounding cellulitis and evidence of wet gangrene of his third toe therefore he was admitted to the hospital for amputation and revascularization. Risks and benefits were discussed. The plan today is to take grossly infected tissue and eschar with the hopes of further revascularization and allowing further demarcation of non-vitalized tissues after proper revascularization. He is currently on antibiotics. All this was discussed and he seemingly understood and is willing to proceed as such. Procedure in detail the patient was taken to the operative suite and placed in supine position. The left lower extremity was prepped and draped in usual sterile fashion. A preprocedure timeout was performed, all parties were in agreement. An elliptical incision was made around the third toe and deepened through the subcutaneous tissues to the level of the metatarsal phalangeal joint. The toe was transected at this point. Berto was used to grab the capsular area of the metatarsal and smoothed this out. Further necrotic tissue was excised sharply. Attention was then turned to the fourth toe, on the medial side of the toe the portion of eschar was debrided down to the level of subcutaneous fat. There was some minimal cyanotic tissue that was left, but at this point again remained intentional. There is no. Drainage or expressible discharge from this area. Attention was then turned towards the great toe. The area of eschar on the medial portion was sharply debrided down to subcutaneous tissues. There was minimal bleeding which was effectively controlled with pressure. There was copiously irrigated with saline solution and Dakin solution was placed. Dressing was placed and the patient was allowed to awaken from anesthesia and transferred to recovery in stable condition having tolerated the procedure well. The will be undergoing revascularization planning in the next few days and subsequently will likely need further operative debridement of his left forefoot.
[2020-09-16 19:26] LABS: Glucose,Whole Blood 190 mg/dL (75-99)
[2020-09-16 20:09] LABS: Glucose,Whole Blood 167 mg/dL (75-99)
[2020-09-17] MEDS: HYDROmorphone 1 MG/ML 1 ML SYRINGE IVP PRN (00:59)
[2020-09-17 07:08] LABS: Glucose,Whole Blood 177 mg/dL (75-99)
[2020-09-17] MEDS: ATORVASTATIN 40 MG TAB PO SCH (07:18)
[2020-09-17] MEDS: CALCIUM ACETATE 667 MG TAB PO SCH ×3 (07:18→17:03)
[2020-09-17] MEDS: METOPROLOL SUCCINATE (ER) 25 MG TAB.ER.24H PO SCH (07:18)
[2020-09-17] MEDS: allopurinoL 100 MG TAB PO SCH (07:19)
[2020-09-17] MEDS: PREGABALIN 25 MG CAP PO SCH (07:19)
[2020-09-17] MEDS: PIPERACILLIN-TAZOBACTAM 3.375 GM in SODIUM CHLORIDE 0.9% 100 ML IVPB SCH ×2 (07:19→21:19)
[2020-09-17] MEDS: FLUoxetine HCL 20 MG CAP PO SCH (07:19)
[2020-09-17 07:28] LABS: ALT 11 U/L (4-49); AST 17 U/L (17-59); African American GFR (CKD) 6 (>60 ml/min/1.73 sqM); Albumin 3.2 g/dL (3.5-5.0); Albumin/Globulin Ratio 1.1; Alkaline Phosphatase 141 U/L (38-126); Anion Gap 15 mmol/L; Blood Urea Nitrogen 48 mg/dL (9-20); Calcium 9.6 mg/dL (8.4-10.2); Carbon Dioxide 27 mmol/L (22-30); Chloride 90 mmol/L (98-107); Globulin 2.8 g/dL; Glucose 157 mg/dL (74-99); Potassium 4.8 mmol/L (3.5-5.1); Sodium 132 mmol/L (137-145); Total Bilirubin 1.4 mg/dL (0.2-1.3)
[2020-09-17 07:32] LABS: Non-African American GFR(CKD) 5 (>60 ml/min/1.73 sqM)
[2020-09-17 07:33] LABS: Vancomycin,Random 28.2 ug/mL
[2020-09-17 09:18] LABS: Basophils # (A) 0.06 X 10*3/uL (0.00-0.10); Basophils % (A) 0.5 %; Eosinophils # (A) 0.14 X 10*3/uL (0.04-0.35); Eosinophils % (A) 1.3 %; HCT 37.3 % (39.6-50.0); HGB 11.2 g/dL (13.0-17.0); Lymphocytes # (A) 0.63 X 10*3/uL (0.90-5.00); Lymphocytes % (A) 5.7 %; MCH 29.2 pg (27.0-32.0); MCV 97.4 fL (80.0-97.0); Mean Platelet Volume 12.1 fL (9.5-12.2); Monocytes # (A) 0.78 X 10*3/uL (0.20-1.00); Neutrophils # (A) 9.42 X 10*3/uL (1.80-7.70); Platelet Count 163 X 10*3/uL (140-440); RBC 3.83 X 10*6/uL (4.40-5.60); RDW 16.1 % (11.5-14.5); WBC 11.08 X 10*3/uL (4.50-10.00)
--- NOTE | 2020-09-17 09:44 | P.PN ---
Subjective Progress Note Date: 09/17/20 Postop, no chest pain no abdominal pain nausea and vomiting no dizziness. Remains afebrile. Objective - Vital Signs Vital signs: Vital Signs Temp 97.4 F L 09/17/20 08:00 Pulse 67 09/17/20 08:00 Resp 18 09/17/20 08:00 BP 114/72 09/17/20 08:00 Pulse Ox 97 09/17/20 08:00 Intake & Output 09/16/20 09/17/20 09/17/20 18:59 06:59 18:59 Intake Total 250 900 Balance 250 900 Weight 91 kg Intake: IV 250 Intake, IV Titration 900 Amount Sodium Chloride 0.9% 1, 900 000 ml @ 75 mls/hr IV . [id number] PENDING SALE TO [facility] Rx#:[id number] Other: Voiding Method Toilet Toilet Toilet # Voids 0 - Exam Constitutional: No acute distress, conversant, pleasant Eyes: Anicteric sclerae ENMT: NC/AT Neck:Supple, FROM Lungs: Clear to auscultation, Clear to percussion, Normal respiratory effort, no accessory muscle use Cardiovascular: Heart regular in rate and rhythm, No murmurs, gallops, or rubs no peripheral edema Abdominal: Soft Nontender, nom distended, no guarding, no rebound or rigidity, Normoactive bowel sounds Extremities: Left foot wrapped status post toe amputation Psychiatric: Alert and oriented to person, place and time, Appropriate affect Intact judgement Neuro: Muscles Strength 5/5 in all 4 extremities, Sensation to light touch grossly present throughout, Cranial nerves II-XII grossly intact. No focal sensory deficits - Labs CBC & Chem 7: 09/17/20 06:38 09/17/20 06:38 Labs: Abnormal Lab Results - Last 24 Hours (Table) 09/16/20 09/16/20 09/16/20 Range/Units 12:05 13:51 15:55 WBC (4.50-10.00) X 10*3/uL RBC (4.40-5.60) X 10*6/uL Hgb (13.0-17.0) g/dL Hct (39.6-50.0) % MCV (80.0-97.0) fL MCHC (32.0-37.0) g/dL RDW (11.5-14.5) % Immature Gran # (0.00-0.04) X 10*3/uL Neutrophils # (1.80-7.70) X 10*3/uL Lymphocytes # (0.90-5.00) X 10*3/uL Sodium 132 L (137-145) mmol/L Chloride 90 L (98-107) mmol/L BUN 39 H (9-20) mg/dL Creatinine 8.28 H* (0.66-1.25) mg/dL Glucose 203 H (74-99) mg/dL POC Glucose (mg/dL) 219 H 219 H (75-99) mg/dL Total Bilirubin 1.7 H (0.2-1.3) mg/dL Alkaline Phosphatase 163 H (38-126) U/L Total Protein 6.2 L (6.3-8.2) g/dL Albumin (3.5-5.0) g/dL 09/16/20 09/16/20 09/17/20 Range/Units 19:21 20:06 06:38 WBC (4.50-10.00) X 10*3/uL RBC (4.40-5.60) X 10*6/uL Hgb (13.0-17.0) g/dL Hct (39.6-50.0) % MCV (80.0-97.0) fL MCHC (32.0-37.0) g/dL RDW (11.5-14.5) % Immature Gran # (0.00-0.04) X 10*3/uL Neutrophils # (1.80-7.70) X 10*3/uL Lymphocytes # (0.90-5.00) X 10*3/uL Sodium 132 L (137-145) mmol/L Chloride 90 L (98-107) mmol/L BUN 48 H (9-20) mg/dL Creatinine 9.13 H* (0.66-1.25) mg/dL Glucose 157 H (74-99) mg/dL POC Glucose (mg/dL) 190 H 167 H (75-99) mg/dL Total Bilirubin 1.4 H (0.2-1.3) mg/dL Alkaline Phosphatase 141 H (38-126) U/L Total Protein 6.0 L (6.3-8.2) g/dL Albumin 3.2 L (3.5-5.0) g/dL 09/17/20 09/17/20 Range/Units 06:38 07:06 WBC 11.08 H (4.50-10.00) X 10*3/uL RBC 3.83 L (4.40-5.60) X 10*6/uL Hgb 11.2 L (13.0-17.0) g/dL Hct 37.3 L (39.6-50.0) % MCV 97.4 H (80.0-97.0) fL MCHC 30.0 L (32.0-37.0) g/dL RDW 16.1 H (11.5-14.5) % Immature Gran # 0.05 H (0.00-0.04) X 10*3/uL Neutrophils # 9.42 H (1.80-7.70) X 10*3/uL Lymphocytes # 0.63 L (0.90-5.00) X 10*3/uL Sodium (137-145) mmol/L Chloride (98-107) mmol/L BUN (9-20) mg/dL Creatinine (0.66-1.25) mg/dL Glucose (74-99) mg/dL POC Glucose (mg/dL) 177 H (75-99) mg/dL Total Bilirubin (0.2-1.3) mg/dL Alkaline Phosphatase (38-126) U/L Total Protein (6.3-8.2) g/dL Albumin (3.5-5.0) g/dL Microbiology - Last 24 Hours (Table) 09/15/20 13:23 Blood Culture - Preliminary Blood No Growth after 24 hours 09/15/20 13:28 Blood Culture - Preliminary Blood No Growth after 24 hours Assessment and Plan Plan: 1. Necrotic left third toe likely associated with diabetes: Consult vascular surgery input appreciated, pain control as indicated. Status post #1 left third toe amputation, #2 left great toe debridement, #3 left fourth toe sharp excisional debridement. 2. Left foot cellulitis: Continue vancomycin and Zosyn, pharmacy dosing. 3. End-stage renal disease on hemodialysis secondary to diabetes and hypertension: Continue hemodialysis TTS, consult nephrology. Continue renal replacement therapy as per schedule. 4. Diabetes type 2 with end-stage renal disease: Continue on insulin sliding scale 5. Coronary artery disease without evidence of acute coronary syndrome: With no evidence of acute coronary syndrome: Monitor 6. Hyperlipidemia: Continue statin 7. Gout without acute attack: Continue allopurinol 8. Depression: Continue Prozac 9. Essential hypertension: Continue metoprolol 10. Restless leg syndrome: Continue Requip DVT prophylaxis: SCDs Disposition: Home in 1-2 days pending clinical progression
--- NOTE | 2020-09-17 10:57 | P.PN ---
Subjective Progress Note Date: 09/17/20 Principal diagnosis: Gangrene third toe, peripheral arterial disease Patient seen and examined lying in bed. He is postop day #1 for a left third toe amputation and first and fourth toe debridement. He states he is doing well, denies any pain. Tolerated his breakfast well. Denies any shortness of breath, chest pain, or abdominal pain. He remains on IV antibiotics. Objective - Vital Signs Vital signs: Vital Signs Temp 97.4 F L 09/17/20 08:00 Pulse 67 09/17/20 08:00 Resp 18 09/17/20 08:00 BP 114/72 09/17/20 08:00 Pulse Ox 97 09/17/20 08:00 Intake & Output 09/16/20 09/17/20 09/17/20 18:59 06:59 18:59 Intake Total 250 900 Balance 250 900 Weight 91 kg Intake: IV 250 Intake, IV Titration 900 Amount Sodium Chloride 0.9% 1, 900 000 ml @ 75 mls/hr IV . [id number] [facility] Rx#:[id number] Other: Voiding Method Toilet Toilet Toilet # Voids 0 - Exam General appearance: The patient is alert, oriented, in no acute distress. HET: Head is normocephalic and atraumatic. Neck: Supple without lymphadenopathy. Trachea midline. Abdomen: Soft, nontender, nondistended. Extremities: Dorsal aspect of left foot with cellulitis up to the mid foot, left lateral and plantar side of great toe with small amount of bleeding, amputation site of third toe without any active bleeding, debridement of medial side of left fourth toe. Wet-to-dry dressings reapplied. Neurological: No focal deficits. Strength and sensation are grossly intact. - Labs CBC & Chem 7: 09/17/20 06:38 09/17/20 06:38 Labs: Abnormal Lab Results - Last 24 Hours (Table) 09/16/20 09/16/20 09/16/20 Range/Units 12:05 13:51 15:55 WBC (4.50-10.00) X 10*3/uL RBC (4.40-5.60) X 10*6/uL Hgb (13.0-17.0) g/dL Hct (39.6-50.0) % MCV (80.0-97.0) fL MCHC (32.0-37.0) g/dL RDW (11.5-14.5) % Immature Gran # (0.00-0.04) X 10*3/uL Neutrophils # (1.80-7.70) X 10*3/uL Lymphocytes # (0.90-5.00) X 10*3/uL Sodium 132 L (137-145) mmol/L Chloride 90 L (98-107) mmol/L BUN 39 H (9-20) mg/dL Creatinine 8.28 H* (0.66-1.25) mg/dL Glucose 203 H (74-99) mg/dL POC Glucose (mg/dL) 219 H 219 H (75-99) mg/dL Total Bilirubin 1.7 H (0.2-1.3) mg/dL Alkaline Phosphatase 163 H (38-126) U/L Total Protein 6.2 L (6.3-8.2) g/dL Albumin (3.5-5.0) g/dL 09/16/20 09/16/20 09/17/20 Range/Units 19:21 20:06 06:38 WBC (4.50-10.00) X 10*3/uL RBC (4.40-5.60) X 10*6/uL Hgb (13.0-17.0) g/dL Hct (39.6-50.0) % MCV (80.0-97.0) fL MCHC (32.0-37.0) g/dL RDW (11.5-14.5) % Immature Gran # (0.00-0.04) X 10*3/uL Neutrophils # (1.80-7.70) X 10*3/uL Lymphocytes # (0.90-5.00) X 10*3/uL Sodium 132 L (137-145) mmol/L Chloride 90 L (98-107) mmol/L BUN 48 H (9-20) mg/dL Creatinine 9.13 H* (0.66-1.25) mg/dL Glucose 157 H (74-99) mg/dL POC Glucose (mg/dL) 190 H 167 H (75-99) mg/dL Total Bilirubin 1.4 H (0.2-1.3) mg/dL Alkaline Phosphatase 141 H (38-126) U/L Total Protein 6.0 L (6.3-8.2) g/dL Albumin 3.2 L (3.5-5.0) g/dL 09/17/20 09/17/20 Range/Units 06:38 07:06 WBC 11.08 H (4.50-10.00) X 10*3/uL RBC 3.83 L (4.40-5.60) X 10*6/uL Hgb 11.2 L (13.0-17.0) g/dL Hct 37.3 L (39.6-50.0) % MCV 97.4 H (80.0-97.0) fL MCHC 30.0 L (32.0-37.0) g/dL RDW 16.1 H (11.5-14.5) % Immature Gran # 0.05 H (0.00-0.04) X 10*3/uL Neutrophils # 9.42 H (1.80-7.70) X 10*3/uL Lymphocytes # 0.63 L (0.90-5.00) X 10*3/uL Sodium (137-145) mmol/L Chloride (98-107) mmol/L BUN (9-20) mg/dL Creatinine (0.66-1.25) mg/dL Glucose (74-99) mg/dL POC Glucose (mg/dL) 177 H (75-99) mg/dL Total Bilirubin (0.2-1.3) mg/dL Alkaline Phosphatase (38-126) U/L Total Protein (6.3-8.2) g/dL Albumin (3.5-5.0) g/dL Microbiology - Last 24 Hours (Table) 09/15/20 13:23 Blood Culture - Preliminary Blood No Growth after 24 hours 09/15/20 13:28 Blood Culture - Preliminary Blood No Growth after 24 hours Assessment and Plan Assessment: 1. Postop day #1 left foot third toe amputation with debridement of great toe and fourth toe 2. Left foot third and fourth toe gangrene with possible osteomyelitis, left great toe wound 3. Peripheral arterial disease 4. History of coronary artery disease, status post CABG 5. Diabetes mellitus 6. End-stage renal disease on hemodialysis and status post kidney transplant 7. Hypertension 8. Hyperlipidemia 9. Obstructive sleep apnea on CPAP Plan: 1. Continue IV antibiotics as ordered 2. Consistent carbohydrate diet, nothing by mouth after midnight 3. Status post toe amputation of left foot, with debridement of great toe and fourth toe 4. Daily wet-to-dry dressing to amputation and debridement site 5. Plan for left lower extremity angiogram with revascularization on 09/18/2020 6. Hemodialysis as scheduled per nephrology Thank you for this consultation, we will continue to follow The impression and plan of care has been dictated as directed. Dr. Macias I performed a history and examination of this patient, discussed the same with the dictator. I agree with the dictator's note ,documented as a scribe. Any additional findings or plans will be noted.
[2020-09-17 12:02] LABS: Glucose,Whole Blood 238 mg/dL (75-99)
[2020-09-17] MEDS: SODIUM CHLORIDE 0.9% 1,000 ML IV SCH (12:03)
--- NOTE | 2020-09-17 15:14 | PN ---
PROGRESS NOTE The patient is seen for followup for end-stage renal disease. He is maintained on a Monday, , Monday schedule for dialysis. He will be dialyzed today. The patient was admitted to the hospital with gangrenous toes on his left foot, his third toe and partial big toe. Plans for angiogram of left lower extremity tomorrow. PHYSICAL EXAMINATION: On examination today, patient is comfortable. Denies any significant complaints. Blood pressure 114/72, heart rate 50 per minute. He is afebrile. EXAMINATION OF THE HEART: S1, S2. EXAMINATION OF THE LUNGS: Bilateral breath sounds are heard. Abdomen is soft, nontender. Examination of lower extremities shows no significant edema. Left foot is currently wrapped. CLINICAL DATA MANAGER exam grossly intact. LABS: Labs show hemoglobin 11.2, sodium 132, potassium 4.8, BUN 48, creatinine 9.1. ASSESSMENT: 1. End-stage renal disease, on hemodialysis on a Monday, , Monday schedule. 2. Peripheral vascular disease with gangrene in the left third toe and partial first toe being followed by Vascular with plans for left lower extremity angiogram in a.m. 3. Anemia of chronic disease. 4. Chronic kidney disease mineral bone disorder. PLAN: Hemodialysis today. MMODL / IJN: [id number] /
[2020-09-17 15:49] VITALS: BMI 28.8
[2020-09-17 17:08] LABS: Glucose,Whole Blood 215 mg/dL (75-99)
[2020-09-17 20:58] LABS: Glucose,Whole Blood 164 mg/dL (75-99)
[2020-09-17] MEDS: HYDROcodone/APAP 5-325MG 1 EACH TAB PO PRN (22:24)
[2020-09-18] MEDS: SODIUM CHLORIDE 0.9% 1,000 ML IV SCH (02:37)
[2020-09-18] MEDS: HYDROcodone/APAP 5-325MG 1 EACH TAB PO PRN (04:47)
[2020-09-18 07:11] LABS: Glucose,Whole Blood 154 mg/dL (75-99)
[2020-09-18] MEDS: PIPERACILLIN-TAZOBACTAM 3.375 GM in SODIUM CHLORIDE 0.9% 100 ML IVPB SCH ×2 (08:15→20:21)
[2020-09-18] MEDS: CALCIUM ACETATE 667 MG TAB PO SCH ×3 (08:16→16:23)
[2020-09-18] MEDS: ATORVASTATIN 40 MG TAB PO SCH (08:16)
[2020-09-18] MEDS: allopurinoL 100 MG TAB PO SCH (08:16)
[2020-09-18] MEDS: METOPROLOL SUCCINATE (ER) 25 MG TAB.ER.24H PO SCH (08:16)
[2020-09-18] MEDS: PREGABALIN 25 MG CAP PO SCH (08:16)
[2020-09-18] MEDS: FLUoxetine HCL 20 MG CAP PO SCH (08:16)
[2020-09-18 09:20] LABS: ALT 349 U/L (4-49); AST 680 U/L (17-59); African American GFR (CKD) 9 (>60 ml/min/1.73 sqM); Albumin 3.3 g/dL (3.5-5.0); Albumin/Globulin Ratio 1.2; Alkaline Phosphatase 355 U/L (38-126); Anion Gap 17 mmol/L; Blood Urea Nitrogen 36 mg/dL (9-20); Calcium 9.7 mg/dL (8.4-10.2); Carbon Dioxide 21 mmol/L (22-30); Chloride 94 mmol/L (98-107); Globulin 2.7 g/dL; Glucose 160 mg/dL (74-99); Non-African American GFR(CKD) 8 (>60 ml/min/1.73 sqM); Potassium 4.4 mmol/L (3.5-5.1); Sodium 132 mmol/L (137-145)
[2020-09-18 09:26] LABS: Vancomycin,Random 19.9 ug/mL
[2020-09-18 11:24] LABS: Hepatitis B Surface AB- Quant 49.6 mIU/mL; Hepatitis B Surface Antibody Reactive (Non-Reactive); Hepatitis B Surface Antigen Non-Reactive (Non-Reactive)
[2020-09-18 11:44] LABS: Basophils # (A) 0.07 X 10*3/uL (0.00-0.10); Basophils % (A) 0.5 %; Eosinophils # (A) 0.15 X 10*3/uL (0.04-0.35); Eosinophils % (A) 1.1 %; HCT 38.8 % (39.6-50.0); HGB 11.7 g/dL (13.0-17.0); Lymphocytes # (A) 0.77 X 10*3/uL (0.90-5.00); Lymphocytes % (A) 5.8 %; MCH 28.8 pg (27.0-32.0); MCHC 30.2 g/dL (32.0-37.0); MCV 95.6 fL (80.0-97.0); Mean Platelet Volume 12.7 fL (9.5-12.2); Monocytes # (A) 0.97 X 10*3/uL (0.20-1.00); Monocytes % (A) 7.3 %; Neutrophils # (A) 11.22 X 10*3/uL (1.80-7.70); Neutrophils % (A) 84.5 %; Platelet Count 169 X 10*3/uL (140-440); RBC 4.06 X 10*6/uL (4.40-5.60); RDW 16.4 % (11.5-14.5); WBC 13.29 X 10*3/uL (4.50-10.00)
[2020-09-18 11:48] LABS: Glucose,Whole Blood 145 mg/dL (75-99)
[2020-09-18] MEDS ORDERED: HEPARIN SODIUM 1,000 UN/ML (10ML VL) ONE (12:28)
[2020-09-18] MEDS ORDERED: LIDOCAINE 1% INJ 10MG/ML (20 ML MDV) ONE (12:29)
[2020-09-18] MEDS ORDERED: fentaNYL (PF) 50 MCG/ML 2 ML AMP ONE (12:29)
[2020-09-18] MEDS ORDERED: fentaNYL (PF) 50 MCG/ML 2 ML AMP IV ONE (12:41)
[2020-09-18] MEDS ORDERED: MIDAZOLAM 2 MG/2 ML VIAL IV ONE (12:41)
[2020-09-18] MEDS ORDERED: IV FLUID CONTINUATION 250 ML IV ONE (12:42)
[2020-09-18] MEDS ORDERED: LIDOCAINE 1% INJ 10MG/ML (20 ML MDV) SQ ONE (12:47)
[2020-09-18] MEDS ORDERED: IOPAMIDOL-250 50ML BTL INTRAARTER ONE ×2 (13:13→13:14)
--- NOTE | 2020-09-18 13:30 | P.OP ---
Description of Procedure: Preoperative diagnosis: Critical limb ischemia left lower extremity Kayla classification 6 status post toe amputation Postop diagnosis: Same, distal popliteal, tibioperoneal chronic total occlusion, ROASTMASTER bilateral anterior tibial arteries Procedure: Aortogram with bilateral lower extremity selective angiograms via right common femoral artery access under ultrasound guidance Surgeon: José Antonio Anesthesia: Moderate sedation times 27 minutes Estimated blood loss: 5cc Complications: None Condition: Stable Disposition: Patient will require a left femoral to tibial artery bypass Findings: Aorta: Calcified but patent distal at the bifurcation Iliacs: Bilateral common iliacs are patent with atherosclerotic, calcific disease. The internal iliac on the left demonstrates severe stenosis greater than 80% with large calcific plaque. Right internal iliac artery is patent with calcific plaque noted. The external iliac arteries bilaterally are patent with dense calcification without any significant stenosis Femorals: Bilateral common femoral arteries are patent. Right common femoral artery demonstrates 60% stenosis with dense calcific disease. The left common femoral artery demonstrates dense calcific disease. Profundus femoris bilaterally are patent. The superficial femoral artery bilaterally is patent with multiple areas of stenosis and dense calcific disease throughout Popliteal: Right popliteal artery is patent with dense calcific disease throughout. Left popliteal artery is occluded just past the knee with multiple collateralization noted with refill distally at the peroneal and posterior tibial artery. Tibials: Bilateral anterior tibial artery chronic total occlusions, TPT trunk is occluded on the left. Peroneal and posterior tibial arteries are patent bilaterally extending down to the ankle. Poor flow was noted into the foot. Operative narrative: After written informed consent was obtained the patient all risks benefits competitions were described the patient is brought to the Customer Care Specialist and laid in a supine position. The area of the right groin was prepped and draped in the usual sterile fashion. Local anesthesia with moderate sedation was performed with continuous pulse ox monitoring and EKG monitoring. Utilizing ultrasound the right common femoral artery was visualized and shown to be patent with significant posterior plaque. Utilizing a multipurpose needle under ultrasound guidance the artery was accessed. Guidewire was placed followed by 6-German sheath. 035 Glidewire was then placed into the aorta followed by a RBI catheter. Angiogram was then obtained of the aorta. Catheter was then placed at the left common iliac artery and left selective angiogram was obtained. The catheter was then placed into the superficial femoral artery on the left and selective angiogram was obtained distally. Once completed guidewire and catheter was removed and right lower extremity selective angiogram was performed via the femoral sheath. Once completed all guidewires, catheters and sheaths were removed and Vascade closure device was placed for hemostasis. Patient tolerated procedure well was sent to PACU for recovery. He will require a left femoral to posterior tibial artery bypass. We will obtain vein mapping and determine timing for his bypass hopefully within the nex t couple of days.
--- NOTE | 2020-09-18 14:11 | PN ---
PROGRESS NOTE Patient is seen for followup for end-stage renal disease. He is currently awake, comfortable, not in any acute distress. The patient was admitted with gangrene of his left third toe which has been amputated and he is scheduled for angiogram today. PHYSICAL EXAMINATION: Blood pressure 100/59, heart rate 66 per minute. He is afebrile. EXAMINATION OF THE HEART: S1, S2. EXAMINATION OF THE LUNGS: Bilateral breath sounds are heard. Abdomen is soft, nontender. Examination of lower extremities shows left foot is currently wrapped. LABS: Labs show hemoglobin 11.7, sodium 132, potassium 4.4, chloride 94, BUN 36, creatinine 6.7. ASSESSMENT: 1. End-stage renal disease, on hemodialysis on a Monday, , Monday schedule. 2. Peripheral vascular disease with gangrene left third toe and partially on the big toe as well, being followed by Vascular, status post amputation of the third toe and scheduled for angiogram today. 3. Chronic kidney disease mineral bone disorder. PLAN: Discontinue IV fluids and hemodialysis in a.m. MMODL / IJN: [id number] /
[2020-09-18] MEDS ORDERED: VANCOMYCIN 1,500 MG in SODIUM CHLORIDE 0.9% 250 ML IVPB ONE (16:00)
--- NOTE | 2020-09-18 17:28 | P.PN ---
Subjective Progress Note Date: 09/18/20 (delayed charting seen at 1356) Principal diagnosis: shortness of breath Patient is a 65-year-old male with a complex past medical history including diabetes mellitus currently diet controlled, end-stage renal disease on hemodialysis, GERD, hypertension, dyslipidemia who presented with 3 weeks of left third toe discoloration. He underwent sharp excisional debridement of the left second and third toe by Dr. Macias on 09/16. He underwent angiogram on 09/18 and will ultimately need femoral-posterior tibial bypass. Patient seen and examined at bedside. He denies any current pain, no nausea, no vomiting, no shortness of breath. General: non toxic, no distress, appears at stated age Derm: Dressing in place over left foot warm, dry Head: atraumatic, normocephalic, symmetric Eyes: EOMI, no lid lag, anicteric sclera Mouth: no lip lesion, mucus membranes moist Cardiovascular: S1S2 reg, no murmur, Lungs: Decreased breath sounds bilateral, no rhonchi, no rales , no accessory muscle use Abdominal: soft, nontender to palpation, no guarding, no appreciable organomegaly Ext: no gross muscle atrophy, no edema, no contractures Neuro: CN II-XI grossly intact, no focal neuro deficits Psych: Alert, oriented, appropriate affect Osteomyelitis and dry gangrene associated with diabetes, peripheral arterial disease, and end-stage renal disease -Status post amputation of the left third toe with debrided of the great toe and fourth toe -Continue with Vanco and Zosyn -Vascular surgery recommendations Peripheral arterial disease -Plan is for femoral-posterior tibial bypass with vascular surgery this admission, date to be determined End-stage renal disease on dialysis Monday//Monday, mineral bone disease, -Continue with dialysis per nephrology -Phoslo DM 2 - diet controlled - SSI - Check A1C Hyponatremia, due to fluid overload - treatment with HD - repeat in AM Increased LFT - repeat in AM - undetermined cause Hypertension, controlled -Continue with Toprol Dyslipidemia -Statin Obstructive sleep apnea on CPAP DVT prophylaxis: Heparin when okay with vascular Discussed with: Nursing, vascular surgery Anticipated discharge: Pending clinical course Anticipated discharge place: Home with home health A total of 35 minutes was spent on the care of this complex patient more than 50% of the time was spent in counseling and care coordination. Objective - Vital Signs Vital signs: Vital Signs Temp 97.4 F L 09/18/20 16:16 Pulse 70 09/18/20 16:16 Resp 20 09/18/20 16:16 BP 111/55 09/18/20 16:16 Pulse Ox 93 L 09/18/20 16:16 Intake & Output 09/17/20 09/18/20 09/18/20 18:59 06:59 18:59 Intake Total 50 Output Total 1000 Balance -1000 50 Weight 91 kg 92 kg Intake: IV 50 Output: Hemodialysis 1000 Other: Voiding Method Toilet Toilet # Voids 0 # Bowel Movements 1 - Labs CBC & Chem 7: 09/18/20 06:39 09/18/20 06:39 Labs: Abnormal Lab Results - Last 24 Hours (Table) 09/17/20 09/17/20 09/18/20 Range/Units 06:38 20:46 06:39 WBC (4.50-10.00) X 10*3/uL RBC (4.40-5.60) X 10*6/uL Hgb (13.0-17.0) g/dL Hct (39.6-50.0) % MCHC (32.0-37.0) g/dL RDW (11.5-14.5) % MPV (9.5-12.2) fL Immature Gran # (0.00-0.04) X 10*3/uL Neutrophils # (1.80-7.70) X 10*3/uL Lymphocytes # (0.90-5.00) X 10*3/uL Sodium 132 L (137-145) mmol/L Chloride 94 L (98-107) mmol/L Carbon Dioxide 21 L (22-30) mmol/L BUN 36 H (9-20) mg/dL Creatinine 6.77 H (0.66-1.25) mg/dL Glucose 160 H (74-99) mg/dL POC Glucose (mg/dL) 164 H (75-99) mg/dL Total Bilirubin 2.0 H (0.2-1.3) mg/dL AST 680 H (17-59) U/L ALT 349 H (4-49) U/L Alkaline Phosphatase 355 H (38-126) U/L Total Protein 6.0 L (6.3-8.2) g/dL Albumin 3.3 L (3.5-5.0) g/dL Hep Bs Antibody Reactive A (Non-Reactive) 09/18/20 09/18/20 09/18/20 Range/Units 06:39 07:10 11:40 WBC 13.29 H (4.50-10.00) X 10*3/uL RBC 4.06 L (4.40-5.60) X 10*6/uL Hgb 11.7 L (13.0-17.0) g/dL Hct 38.8 L (39.6-50.0) % MCHC 30.2 L (32.0-37.0) g/dL RDW 16.4 H (11.5-14.5) % MPV 12.7 H (9.5-12.2) fL Immature Gran # 0.11 H (0.00-0.04) X 10*3/uL Neutrophils # 11.22 H (1.80-7.70) X 10*3/uL Lymphocytes # 0.77 L (0.90-5.00) X 10*3/uL Sodium (137-145) mmol/L Chloride (98-107) mmol/L Carbon Dioxide (22-30) mmol/L BUN (9-20) mg/dL Creatinine (0.66-1.25) mg/dL Glucose (74-99) mg/dL POC Glucose (mg/dL) 154 H 145 H (75-99) mg/dL Total Bilirubin (0.2-1.3) mg/dL AST (17-59) U/L ALT (4-49) U/L Alkaline Phosphatase (38-126) U/L Total Protein (6.3-8.2) g/dL Albumin (3.5-5.0) g/dL Hep Bs Antibody (Non-Reactive) Microbiology - Last 24 Hours (Table) 09/15/20 13:23 Blood Culture - Preliminary Blood No Growth after 48 hours 09/15/20 13:28 Blood Culture - Preliminary Blood No Growth after 48 hours
--- NOTE | 2020-09-18 17:29 | IR ---
EXAMINATION TYPE: IR angio lower extremity BI DATE OF EXAM: 09/18/2020 CLINICAL HISTORY: Left leg pain TECHNIQUE: Fluoroscopy. COMPARISON: None. FINDINGS: Fluoroscopic guidance was provided during procedure for performing physician. A total of 4.7 minutes of fluoroscopic time was utilized during the procedure and 371 spot images was acquired. IMPRESSION: As Above.
[2020-09-18] MEDS: INSULIN ASPART (NovoLOG) 100 UNIT/ML VIAL SQ SCH ×2 (18:25→20:21)
[2020-09-18 20:12] LABS: Glucose,Whole Blood 273 mg/dL (75-99)
[2020-09-19 05:54] LABS: Glucose,Whole Blood 161 mg/dL (75-99)
[2020-09-19] MEDS: INSULIN ASPART (NovoLOG) 100 UNIT/ML VIAL SQ SCH ×4 (06:29→20:17)
[2020-09-19] MEDS: CALCIUM ACETATE 667 MG TAB PO SCH ×3 (06:30→17:41)
[2020-09-19 08:28] LABS: Anisocytosis Slight; HCT 38.3 % (39.0-53.0); HGB 12.4 gm/dL (13.0-17.5); Hypochromasia Slight; MCH 30.9 pg (25.0-35.0); MCHC 32.4 g/dL (31.0-37.0); MCV 95.4 fL (80.0-100.0); Mean Platelet Volume 10.5; Platelet Count 176 k/uL (150-450); RBC 4.02 m/uL (4.30-5.90); RDW 16.2 % (11.5-15.5); WBC 12.5 k/uL (3.8-10.6)
[2020-09-19 08:31] LABS: Albumin 3.5 g/dL (3.5-5.0); Calcium 9.9 mg/dL (8.4-10.2); Potassium 4.4 mmol/L (3.5-5.1); Total Bilirubin 1.8 mg/dL (0.2-1.3); Total Protein 6.4 g/dL (6.3-8.2)
[2020-09-19] MEDS: allopurinoL 100 MG TAB PO SCH (09:03)
[2020-09-19] MEDS: METOPROLOL SUCCINATE (ER) 25 MG TAB.ER.24H PO SCH (09:03)
[2020-09-19] MEDS: PREGABALIN 25 MG CAP PO SCH (09:03)
[2020-09-19] MEDS: FLUoxetine HCL 20 MG CAP PO SCH (09:03)
[2020-09-19] MEDS: PIPERACILLIN-TAZOBACTAM 3.375 GM in SODIUM CHLORIDE 0.9% 100 ML IVPB SCH ×2 (09:03→20:17)
--- NOTE | 2020-09-19 09:58 | P.PN ---
Subjective Patient is seen in follow-up for end-stage renal disease. He is maintained on hemodialysis on Monday schedule. Underwent lower extremity angiogram yesterday and awaits a bypass. No chest pain or shortness of breath. Vital signs are stable. General: The patient appeared well nourished and normally developed. HEENT: Head exam is unremarkable. Neck is without jugular venous distension. LUNGS: Breath sounds decreased. HEART: Rate and Rhythm are regular. ABDOMEN: Soft, nontender. EXTREMITITES: No edema. Objective - Vital Signs Vital signs: Vital Signs Temp 98.1 F 09/19/20 08:00 Pulse 82 09/19/20 08:00 Resp 18 09/19/20 08:00 BP 122/64 09/19/20 08:00 Pulse Ox 96 09/19/20 08:00 Intake & Output 09/18/20 09/19/20 09/19/20 18:59 06:59 18:59 Intake Total 450 240 Balance 450 240 Weight 92.9 kg Intake: IV 50 Intake, IV Titration 400 Amount Sodium Chloride 0.9% 1, 150 000 ml @ 75 mls/hr IV . [id number] [facility] Rx#:[id number] Vancomycin 1,500 mg In 250 Sodium Chloride 0.9% 250 ml @ 125 mls/hr IVPB ONCE ONE Rx#:[id number] Oral 240 Other: Voiding Method Toilet Toilet - Labs CBC & Chem 7: 09/19/20 07:34 09/19/20 07:34 Labs: Abnormal Lab Results - Last 24 Hours (Table) 09/17/20 09/18/20 09/18/20 Range/Units 06:38 06:39 11:40 WBC 13.29 H (4.50-10.00) X 10*3/uL RBC 4.06 L (4.40-5.60) X 10*6/uL Hgb 11.7 L (13.0-17.0) g/dL Hct 38.8 L (39.6-50.0) % MCHC 30.2 L (32.0-37.0) g/dL RDW 16.4 H (11.5-14.5) % MPV 12.7 H (9.5-12.2) fL Immature Gran # 0.11 H (0.00-0.04) X 10*3/uL Neutrophils # 11.22 H (1.80-7.70) X 10*3/uL Lymphocytes # 0.77 L (0.90-5.00) X 10*3/uL Sodium (137-145) mmol/L Chloride (98-107) mmol/L Carbon Dioxide (22-30) mmol/L BUN (9-20) mg/dL Creatinine (0.66-1.25) mg/dL Glucose (74-99) mg/dL POC Glucose (mg/dL) 145 H (75-99) mg/dL Total Bilirubin (0.2-1.3) mg/dL AST (17-59) U/L ALT (4-49) U/L Alkaline Phosphatase (38-126) U/L Hep Bs Antibody Reactive A (Non-Reactive) 09/18/20 09/19/20 09/19/20 Range/Units 20:11 05:52 07:34 WBC 12.5 H (4.50-10.00) X 10*3/uL RBC 4.02 L (4.40-5.60) X 10*6/uL Hgb 12.4 L (13.0-17.0) g/dL Hct 38.3 L (39.6-50.0) % MCHC (32.0-37.0) g/dL RDW 16.2 H (11.5-14.5) % MPV (9.5-12.2) fL Immature Gran # (0.00-0.04) X 10*3/uL Neutrophils # (1.80-7.70) X 10*3/uL Lymphocytes # (0.90-5.00) X 10*3/uL Sodium (137-145) mmol/L Chloride (98-107) mmol/L Carbon Dioxide (22-30) mmol/L BUN (9-20) mg/dL Creatinine (0.66-1.25) mg/dL Glucose (74-99) mg/dL POC Glucose (mg/dL) 273 H 161 H (75-99) mg/dL Total Bilirubin (0.2-1.3) mg/dL AST (17-59) U/L ALT (4-49) U/L Alkaline Phosphatase (38-126) U/L Hep Bs Antibody (Non-Reactive) 09/19/20 Range/Units 07:34 WBC (4.50-10.00) X 10*3/uL RBC (4.40-5.60) X 10*6/uL Hgb (13.0-17.0) g/dL Hct (39.6-50.0) % MCHC (32.0-37.0) g/dL RDW (11.5-14.5) % MPV (9.5-12.2) fL Immature Gran # (0.00-0.04) X 10*3/uL Neutrophils # (1.80-7.70) X 10*3/uL Lymphocytes # (0.90-5.00) X 10*3/uL Sodium 130 L (137-145) mmol/L Chloride 90 L (98-107) mmol/L Carbon Dioxide 21 L (22-30) mmol/L BUN 49 H (9-20) mg/dL Creatinine 8.40 H* (0.66-1.25) mg/dL Glucose 188 H (74-99) mg/dL POC Glucose (mg/dL) (75-99) mg/dL Total Bilirubin 1.8 H (0.2-1.3) mg/dL AST 471 H (17-59) U/L ALT 373 H (4-49) U/L Alkaline Phosphatase 372 H (38-126) U/L Hep Bs Antibody (Non-Reactive) Microbiology - Last 24 Hours (Table) 09/15/20 13:23 Blood Culture - Preliminary Blood No Growth after 72 hours 09/15/20 13:28 Blood Culture - Preliminary Blood No Growth after 72 hours Assessment and Plan Plan: Assessment: 1. End-stage renal disease maintained on hemodialysis on Monday schedule via AV fistula. 2. Peripheral arterial disease. Awaits bypass. 3. Chronic kidney disease mineral bone disease maintained on PhosLo. 4. Diabetes mellitus. 5. Hyponatremia secondary to chronic kidney disease. Plan: Hemodialysis today.
--- NOTE | 2020-09-19 10:25 | P.PN ---
Subjective Progress Note Date: 09/19/20 Patient seen and examined. Doing well overall without complaints. He underwent an angiogram yesterday revealing the need for a femoral to tibial bypass. He underwent vein mapping showing unsatisfactory vein on the ipsilateral leg, marginal appearing vein on the contralateral leg. Likely we'll plan a CryoVein for the bypass. We will work on getting that set up, in the meantime he does need cardiac clearance. We will undergo surgical planning in the near future versus short-term outpatient follow-up and return. Given his. Ischemic tissues of his foot, would plan a sooner rather than later. Objective - Vital Signs Vital signs: Vital Signs Temp 98.1 F 09/19/20 08:00 Pulse 82 09/19/20 08:00 Resp 18 09/19/20 08:00 BP 122/64 09/19/20 08:00 Pulse Ox 96 09/19/20 08:00 Intake & Output 09/18/20 09/19/20 09/19/20 18:59 06:59 18:59 Intake Total 450 480 Balance 450 480 Weight 92.9 kg Intake: IV 50 Intake, IV Titration 400 Amount Sodium Chloride 0.9% 1, 150 000 ml @ 75 mls/hr IV . [id number] Rx#:[id number] Vancomycin 1,500 mg In 250 Sodium Chloride 0.9% 250 ml @ 125 mls/hr IVPB ONCE ONE Rx#:[id number] Oral 480 Other: Voiding Method Toilet Toilet - Labs CBC & Chem 7: 09/19/20 07:34 09/19/20 07:34 Labs: Abnormal Lab Results - Last 24 Hours (Table) 09/17/20 09/18/20 09/18/20 Range/Units 06:38 06:39 11:40 WBC 13.29 H (4.50-10.00) X 10*3/uL RBC 4.06 L (4.40-5.60) X 10*6/uL Hgb 11.7 L (13.0-17.0) g/dL Hct 38.8 L (39.6-50.0) % MCHC 30.2 L (32.0-37.0) g/dL RDW 16.4 H (11.5-14.5) % MPV 12.7 H (9.5-12.2) fL Immature Gran # 0.11 H (0.00-0.04) X 10*3/uL Neutrophils # 11.22 H (1.80-7.70) X 10*3/uL Lymphocytes # 0.77 L (0.90-5.00) X 10*3/uL Sodium (137-145) mmol/L Chloride (98-107) mmol/L Carbon Dioxide (22-30) mmol/L BUN (9-20) mg/dL Creatinine (0.66-1.25) mg/dL Glucose (74-99) mg/dL POC Glucose (mg/dL) 145 H (75-99) mg/dL Total Bilirubin (0.2-1.3) mg/dL AST (17-59) U/L ALT (4-49) U/L Alkaline Phosphatase (38-126) U/L Hep Bs Antibody Reactive A (Non-Reactive) 09/18/20 09/19/20 09/19/20 Range/Units 20:11 05:52 07:34 WBC 12.5 H (4.50-10.00) X 10*3/uL RBC 4.02 L (4.40-5.60) X 10*6/uL Hgb 12.4 L (13.0-17.0) g/dL Hct 38.3 L (39.6-50.0) % MCHC (32.0-37.0) g/dL RDW 16.2 H (11.5-14.5) % MPV (9.5-12.2) fL Immature Gran # (0.00-0.04) X 10*3/uL Neutrophils # (1.80-7.70) X 10*3/uL Lymphocytes # (0.90-5.00) X 10*3/uL Sodium (137-145) mmol/L Chloride (98-107) mmol/L Carbon Dioxide (22-30) mmol/L BUN (9-20) mg/dL Creatinine (0.66-1.25) mg/dL Glucose (74-99) mg/dL POC Glucose (mg/dL) 273 H 161 H (75-99) mg/dL Total Bilirubin (0.2-1.3) mg/dL AST (17-59) U/L ALT (4-49) U/L Alkaline Phosphatase (38-126) U/L Hep Bs Antibody (Non-Reactive) 09/19/20 Range/Units 07:34 WBC (4.50-10.00) X 10*3/uL RBC (4.40-5.60) X 10*6/uL Hgb (13.0-17.0) g/dL Hct (39.6-50.0) % MCHC (32.0-37.0) g/dL RDW (11.5-14.5) % MPV (9.5-12.2) fL Immature Gran # (0.00-0.04) X 10*3/uL Neutrophils # (1.80-7.70) X 10*3/uL Lymphocytes # (0.90-5.00) X 10*3/uL Sodium 130 L (137-145) mmol/L Chloride 90 L (98-107) mmol/L Carbon Dioxide 21 L (22-30) mmol/L BUN 49 H (9-20) mg/dL Creatinine 8.40 H* (0.66-1.25) mg/dL Glucose 188 H (74-99) mg/dL POC Glucose (mg/dL) (75-99) mg/dL Total Bilirubin 1.8 H (0.2-1.3) mg/dL AST 471 H (17-59) U/L ALT 373 H (4-49) U/L Alkaline Phosphatase 372 H (38-126) U/L Hep Bs Antibody (Non-Reactive) Microbiology - Last 24 Hours (Table) 09/15/20 13:23 Blood Culture - Preliminary Blood No Growth after 72 hours 09/15/20 13:28 Blood Culture - Preliminary Blood No Growth after 72 hours
--- NOTE | 2020-09-19 11:20 | P.PN ---
Subjective Progress Note Date: 09/19/20 Patient is doing fairly well today. He does not have any complaints this morning. No acute events overnight. Objective - Vital Signs Vital signs: Vital Signs Temp 98.1 F 09/19/20 08:00 Pulse 82 09/19/20 08:00 Resp 18 09/19/20 08:00 BP 122/64 09/19/20 08:00 Pulse Ox 96 09/19/20 08:00 Intake & Output 09/18/20 09/19/20 09/19/20 18:59 06:59 18:59 Intake Total 450 480 Balance 450 480 Weight 92.9 kg Intake: IV 50 Intake, IV Titration 400 Amount Sodium Chloride 0.9% 1, 150 000 ml @ 75 mls/hr IV . [id number] FERNANDO Rx#:[id number] Vancomycin 1,500 mg In 250 Sodium Chloride 0.9% 250 ml @ 125 mls/hr IVPB ONCE ONE Rx#:[id number] Oral 480 Other: Voiding Method Toilet Toilet - Exam General: The patient is awake and alert, in no distress Eye: there is normal conjunctiva bilaterally. Neck: The neck is supple, there is no JVD. Cardiovascular: Normal S1-S2, no S3-S4, no murmurs. Respiratory: Lungs clear to auscultation bilaterally Gastrointestinal: Abdomen is soft, nontender Musculoskeletal: There is no pedal edema. Left foot wrapped with clean/dry dressing Neurological:. Speech is normal. Skin: Skin is warm and dry - Labs CBC & Chem 7: 09/19/20 07:34 09/19/20 07:34 Labs: Abnormal Lab Results - Last 24 Hours (Table) 09/17/20 09/18/20 09/18/20 Range/Units 06:38 06:39 11:40 WBC 13.29 H (4.50-10.00) X 10*3/uL RBC 4.06 L (4.40-5.60) X 10*6/uL Hgb 11.7 L (13.0-17.0) g/dL Hct 38.8 L (39.6-50.0) % MCHC 30.2 L (32.0-37.0) g/dL RDW 16.4 H (11.5-14.5) % MPV 12.7 H (9.5-12.2) fL Immature Gran # 0.11 H (0.00-0.04) X 10*3/uL Neutrophils # 11.22 H (1.80-7.70) X 10*3/uL Lymphocytes # 0.77 L (0.90-5.00) X 10*3/uL Sodium (137-145) mmol/L Chloride (98-107) mmol/L Carbon Dioxide (22-30) mmol/L BUN (9-20) mg/dL Creatinine (0.66-1.25) mg/dL Glucose (74-99) mg/dL POC Glucose (mg/dL) 145 H (75-99) mg/dL Total Bilirubin (0.2-1.3) mg/dL AST (17-59) U/L ALT (4-49) U/L Alkaline Phosphatase (38-126) U/L Hep Bs Antibody Reactive A (Non-Reactive) 09/18/20 09/19/20 09/19/20 Range/Units 20:11 05:52 07:34 WBC 12.5 H (4.50-10.00) X 10*3/uL RBC 4.02 L (4.40-5.60) X 10*6/uL Hgb 12.4 L (13.0-17.0) g/dL Hct 38.3 L (39.6-50.0) % MCHC (32.0-37.0) g/dL RDW 16.2 H (11.5-14.5) % MPV (9.5-12.2) fL Immature Gran # (0.00-0.04) X 10*3/uL Neutrophils # (1.80-7.70) X 10*3/uL Lymphocytes # (0.90-5.00) X 10*3/uL Sodium (137-145) mmol/L Chloride (98-107) mmol/L Carbon Dioxide (22-30) mmol/L BUN (9-20) mg/dL Creatinine (0.66-1.25) mg/dL Glucose (74-99) mg/dL POC Glucose (mg/dL) 273 H 161 H (75-99) mg/dL Total Bilirubin (0.2-1.3) mg/dL AST (17-59) U/L ALT (4-49) U/L Alkaline Phosphatase (38-126) U/L Hep Bs Antibody (Non-Reactive) 09/19/20 Range/Units 07:34 WBC (4.50-10.00) X 10*3/uL RBC (4.40-5.60) X 10*6/uL Hgb (13.0-17.0) g/dL Hct (39.6-50.0) % MCHC (32.0-37.0) g/dL RDW (11.5-14.5) % MPV (9.5-12.2) fL Immature Gran # (0.00-0.04) X 10*3/uL Neutrophils # (1.80-7.70) X 10*3/uL Lymphocytes # (0.90-5.00) X 10*3/uL Sodium 130 L (137-145) mmol/L Chloride 90 L (98-107) mmol/L Carbon Dioxide 21 L (22-30) mmol/L BUN 49 H (9-20) mg/dL Creatinine 8.40 H* (0.66-1.25) mg/dL Glucose 188 H (74-99) mg/dL POC Glucose (mg/dL) (75-99) mg/dL Total Bilirubin 1.8 H (0.2-1.3) mg/dL AST 471 H (17-59) U/L ALT 373 H (4-49) U/L Alkaline Phosphatase 372 H (38-126) U/L Hep Bs Antibody (Non-Reactive) Microbiology - Last 24 Hours (Table) 09/15/20 13:23 Blood Culture - Preliminary Blood No Growth after 72 hours 09/15/20 13:28 Blood Culture - Preliminary Blood No Growth after 72 hours Assessment and Plan Assessment: Patient is a 65-year-old male with a complex past medical history including diabetes mellitus currently diet controlled, end-stage renal disease on hemodialysis, GERD, hypertension, dyslipidemia who presented with 3 weeks of left third toe discoloration. He underwent sharp excisional debridement of the left second and third toe by Dr. Macias on 09/16. He underwent angiogram on 09/18 and will ultimately need femoral-posterior tibial bypass. Osteomyelitis and dry gangrene associated with diabetes, peripheral arterial disease, and end-stage renal disease -Status post amputation of the left third toe with debrided of the great toe and fourth toe -Continue with Wyatt and Talita -Consult infectious disease for antibiotic management -Vascular surgery postoperative recommendations Peripheral arterial disease -Plan is for femoral-posterior tibial bypass with vascular surgery possibly on Monday awaiting cardiac clearance End-stage renal disease on dialysis Monday//Monday, mineral bone disease, -Continue with dialysis per nephrology -Phoslo elevated liver enzyme -Exact etiology unclear may be attributed to episode of hypotension -Now trending down -Lipitor discontinue DM 2 - diet controlled - SSI - Check A1C Hyponatremia, due to fluid overload - treatment with HD - repeat in AM Hypertension, controlled -Continue with Toprol Dyslipidemia -Statin on hold Obstructive sleep apnea on CPAP DVT prophylaxis: Heparin when okay with vascular Discussed with: Nursing, vascular surgery Anticipated discharge: Pending clinical course Anticipated discharge place: Home with home health A total of 35 minutes was spent on the care of this complex patient more than 50% of the time was spent in counseling and care coordination.
[2020-09-19 11:33] LABS: Glucose,Whole Blood 219 mg/dL (75-99)
[2020-09-19 16:41] LABS: Glucose,Whole Blood 115 mg/dL (75-99)
[2020-09-19 20:14] LABS: Glucose,Whole Blood 227 mg/dL (75-99)
--- NOTE | 2020-09-19 23:39 | CONS ---
CONSULTATION DATE OF SERVICE: 09/19/2020 REASON FOR CONSULTATION: Left foot gangrene and osteomyelitis. HISTORY OF PRESENT ILLNESS: The patient is a 65-year-old male presented to [facility] 4 days ago with discoloration of his left foot, third and fourth toe as well as wound to the big toe. The patient mentioned he did have worsening of his left foot for the last 2-3 weeks. Denies any history of any trauma. Noted to have a discoloration on the 3rd, 4th and big toe with associated pain. The patient describes the pain to be more of a sharp to dull aching almost 7 to 8 out of 10 with no radiation. The patient was evaluated by vascular surgeon in the outpatient setting and was advised admission to the hospital. The patient did have x-rays on admission with suspicion for osteomyelitis. Patient did have amputation of the left 3rd toe completed on 09/16/2020, with evidence of underlying osteomyelitis on histopathology. Unfortunately no local cultures were done. The patient has been treated with Zosyn for the last 4 days. Infectious Disease was consulted today for further management of antibiotic therapy. The patient currently denies having any fever or any chills. Denies having any chest pain, shortness of breath with cough. No abdominal pain or diarrhea. The patient did have a history of end-stage renal disease on dialysis. REVIEW OF SYSTEMS: Positive points have been mentioned in HPI. Rest of systems are negative. PAST MEDICAL HISTORY: Coronary artery disease, heart failure, diabetes mellitus, end-stage renal disease, on dialysis, hypertension, hyperlipidemia, peripheral vascular disease. PAST SURGICAL HISTORY: Coronary artery bypass grafting, heart catheterization, dialysis catheter placement. SOCIAL HISTORY: Current everyday smoker. No drinking or drug use. FAMILY HISTORY: Father with history of hypertension and IA. Mother history of dementia. ALLERGIES: No known drug allergies. MEDICATIONS: The patient is currently on Sprakers, Zyloprim, PhosLo, Prozac, NovoLog, Toprol-XL, vancomycin pharmacy to dose, Narcan, Zofran, and Zosyn, . PHYSICAL EXAMINATION: Blood pressure is 125/60 with a pulse of 73, temperature 98.1. He is 95% on room air. General description: The patient is a middle-aged male lying in bed in no distress. No tachypnea or accessory muscles of respiration use. HEENT: Examination shows no pallor or scleral icterus. Oral mucous membranes dry. NECK: Trachea central. No thyromegaly. LUNGS: Unlabored breathing. Clear to auscultation anteriorly. No wheeze or crackles. HEART S1, S2. Regular rate and rhythm. ABDOMEN: Soft, no tenderness. No guarding. No rigidity. EXTREMITIES: No edema of the feet. Examination of the left big toe did have an ulceration, minimal swelling. No significant redness. Left 3rd toe amputated. Wound base with slough tissue, some swelling. No significant drainage. NEUROLOGICAL: Patient is awake, alert, oriented times three. Mood and affect normal. LABS: Hemoglobin is 12.4, white count 10.5, BUN of 49, creatinine 0.40. Electrolytes have been normal. Liver enzymes are mildly elevated. X-ray report as mentioned above. DIAGNOSTIC IMPRESSION/PLAN: The patient admitted to hospital with left foot toes gangrene in this patient who is status post left third toe amputation with a history of pathology suggestive of osteomyelitis. Initial x-rays were suspicious as well. The patient is status post amputation. Unfortunately draining, no culture was done to determine the infecting pathogen. PLAN: 1. Wound cultures will be obtained, both aerobic and anaerobic. 2. Patient to continue the vancomycin and Zosyn while waiting for the culture to finalize. 3. We will follow on clinical condition and culture to further adjust medication if needed. Thank you for this consultation. Will follow this patient along with you. MMODL / IJN: [id number] /
--- NOTE | 2020-09-19 23:46 | CONS ---
CONSULTATION This is a 65-year-old gentleman with end-stage renal disease, hypertension and on hemodialysis. He also has hyperlipidemia, smoking, and significant CAD as well as peripheral arterial disease. He is here with significant critical limb ischemia of left lower extremity and also had amputation of the toe and is being considered for left femoral to posterior tibial bypass surgery on Monday. I was asked to see him from a preoperative standpoint. This gentleman has an end-stage renal disease. He is on hemodialysis. He has mild to moderate aortic stenosis, CAD with prior bypass surgery and ejection fraction in the range of about 40% or so. At the time of my evaluation, he is resting comfortably, does not have much rest pain in the limb at this time. However, with activity, he has shortness of breath which has been stable. He also has significant pain in the leg with his activity but no chest discomfort. His activity has been quite limited. He sees Dr. Renteria in the office and in April 2020, he had a stress test which revealed an ejection fraction of about 45% with inferolateral fixed defect suggestive of prior TX without significant reversibility. Ejection fraction on the echo was about 35% with mild to moderate aortic stenosis, a mean gradient of less than 20 mmHg without pulmonary hypertension. There was LV dysfunction in the inferior wall, especially was hypokinetic. Ejection fraction was in the 35% range. However, with his limited activity, he has does not have much angina. EKG performed today and revealed a sinus mechanism with a first-degree AV block as well as a right bundle branch block and repolarization abnormality. PAST MEDICAL HISTORY: CAD with prior bypass surgery performed several years ago, probably in 2014, details are unclear. He also has significant peripheral arterial disease, type 2 diabetes with end-stage renal disease. Unfortunately continues to smoke. He has hypertension and hyperlipidemia. He is on 3 times a week hemodialysis. MEDICATIONS: Medications at home include: Toprol-XL 25 mg daily, Lipitor 40 mg daily, aspirin 81 mg daily, Prozac 20 mg daily. PHYSICAL EXAMINATION: On examination, blood pressure is 128/70 pulse rate is 70 per minute. HEENT unremarkable. Fundus was not examined by me. NECK is supple. There is no carotid bruit. There is no significant JVD. HEART exam reveals S1, S2 with ejection systolic murmur. Second heart sound appears to be preserved. LUNGS reveal bilateral diminished air entry. ABDOMEN: Soft. Lower extremities reveal palpable femoral pulses but distal pulses are not palpable. Central nervous system: Grossly no focal deficits. IMPRESSION: 1. Patient is a high risk for any noncardiac surgery, particularly vascular surgery given his multiple comorbid conditions including ischemic cardiomyopathy, mild to moderate aortic stenosis, end-stage renal disease and previous bypass surgery. 2. Hypertension. 3. End-stage renal disease on hemodialysis. 4. Increased liver function tests of unclear etiology. RECOMMENDATIONS: I would recommend cautious fluid administration and optimal blood pressure control perioperatively and recheck his liver functions prior to the operation. Reason for abnormal liver functions is unclear. Patient remains high risk, details were explained to him. There is no absolute contraindication. Thank you very much for the consult. MMODL / IJN: [id number] /
[2020-09-20 06:17] LABS: Glucose,Whole Blood 113 mg/dL (75-99)
[2020-09-20] MEDS: INSULIN ASPART (NovoLOG) 100 UNIT/ML VIAL SQ SCH ×4 (06:19→20:13)
[2020-09-20 07:48] LABS: Anisocytosis Slight; Basophils # (A) 0.1 k/uL (0-0.2); Basophils % (A) 1 %; Eosinophils # (A) 0.2 k/uL (0-0.7); Eosinophils % (A) 2 %; HCT 39.9 % (39.0-53.0); Hypochromasia Moderate; Lymphocytes # (A) 0.7 k/uL (1.0-4.8); Lymphocytes % (A) 6 %; MCH 28.6 pg (25.0-35.0); MCV 95.4 fL (80.0-100.0); Mean Platelet Volume 10.7; Monocytes # (A) 0.6 k/uL (0-1.0); Monocytes % (A) 5 %; Neutrophils % (A) 85 %; Platelet Count 152 k/uL (150-450); RBC 4.18 m/uL (4.30-5.90); RDW 16.5 % (11.5-15.5); WBC 11.7 k/uL (3.8-10.6)
[2020-09-20 08:12] LABS: Calcium 9.8 mg/dL (8.4-10.2); Magnesium 2.4 mg/dL (1.6-2.3); Phosphorus 6.1 mg/dL (2.5-4.5); Potassium 4.1 mmol/L (3.5-5.1)
[2020-09-20] MEDS: CALCIUM ACETATE 667 MG TAB PO SCH ×3 (08:19→16:28)
[2020-09-20] MEDS: PIPERACILLIN-TAZOBACTAM 3.375 GM in SODIUM CHLORIDE 0.9% 100 ML IVPB SCH ×2 (08:20→20:13)
[2020-09-20] MEDS: allopurinoL 100 MG TAB PO SCH (08:20)
[2020-09-20] MEDS: FLUoxetine HCL 20 MG CAP PO SCH (08:20)
[2020-09-20] MEDS: PREGABALIN 25 MG CAP PO SCH (08:20)
[2020-09-20] MEDS: METOPROLOL SUCCINATE (ER) 25 MG TAB.ER.24H PO SCH (08:20)
[2020-09-20 08:54] LABS: Erythrocyte Sedimentation Rate 20 mm/hr (0-15)
[2020-09-20 09:16] LABS: C Reactive Protein 16.2 mg/dL (<1.0)
--- NOTE | 2020-09-20 09:58 | P.PN ---
Subjective Progress Note Date: 09/20/20 Patient seen and examined. Doing well overall without complaints. He was seen and evaluated by cardiology. Found to be high risk for procedure but no contra dictations. We'll plan for femoral to tibial bypass tomorrow 09/21. CryoVein should be arriving in the morning. Objective - Vital Signs Vital signs: Vital Signs Temp 97.9 F 09/20/20 07:18 Pulse 83 09/20/20 07:45 Resp 18 09/20/20 07:18 BP 131/79 09/20/20 07:18 Pulse Ox 98 09/20/20 07:18 Intake & Output 09/19/20 09/20/20 09/20/20 18:59 06:59 18:59 Intake Total 960 150 Output Total 1000 Balance -40 150 Weight 92.9 kg 93.4 kg Intake: Oral 960 150 Output: Hemodialysis 1000 Other: Voiding Method Toilet Toilet Toilet - Labs CBC & Chem 7: 09/20/20 06:48 09/20/20 06:48 Labs: Abnormal Lab Results - Last 24 Hours (Table) 09/19/20 09/19/20 09/19/20 Range/Units 11:31 16:39 19:56 WBC (3.8-10.6) k/uL RBC (4.30-5.90) m/uL Hgb (13.0-17.5) gm/dL MCHC (31.0-37.0) g/dL RDW (11.5-15.5) % Neutrophils # (1.3-7.7) k/uL Lymphocytes # (1.0-4.8) k/uL ESR (0-15) mm/hr Carbon Dioxide (22-30) mmol/L BUN (9-20) mg/dL Creatinine (0.66-1.25) mg/dL Glucose (74-99) mg/dL POC Glucose (mg/dL) 219 H 115 H 227 H (75-99) mg/dL Phosphorus (2.5-4.5) mg/dL Magnesium (1.6-2.3) mg/dL C-Reactive Protein (<1.0) mg/dL 09/20/20 09/20/20 09/20/20 Range/Units 06:16 06:48 06:48 WBC 11.7 H (3.8-10.6) k/uL RBC 4.18 L (4.30-5.90) m/uL Hgb 12.0 L (13.0-17.5) gm/dL MCHC 30.0 L (31.0-37.0) g/dL RDW 16.5 H (11.5-15.5) % Neutrophils # 10.0 H (1.3-7.7) k/uL Lymphocytes # 0.7 L (1.0-4.8) k/uL ESR 20 H (0-15) mm/hr Carbon Dioxide 18 L (22-30) mmol/L BUN 36 H (9-20) mg/dL Creatinine 7.07 H* (0.66-1.25) mg/dL Glucose 106 H (74-99) mg/dL POC Glucose (mg/dL) 113 H (75-99) mg/dL Phosphorus 6.1 H (2.5-4.5) mg/dL Magnesium 2.4 H (1.6-2.3) mg/dL C-Reactive Protein (<1.0) mg/dL 09/20/20 Range/Units 06:48 WBC (3.8-10.6) k/uL RBC (4.30-5.90) m/uL Hgb (13.0-17.5) gm/dL MCHC (31.0-37.0) g/dL RDW (11.5-15.5) % Neutrophils # (1.3-7.7) k/uL Lymphocytes # (1.0-4.8) k/uL ESR (0-15) mm/hr Carbon Dioxide (22-30) mmol/L BUN (9-20) mg/dL Creatinine (0.66-1.25) mg/dL Glucose (74-99) mg/dL POC Glucose (mg/dL) (75-99) mg/dL Phosphorus (2.5-4.5) mg/dL Magnesium (1.6-2.3) mg/dL C-Reactive Protein 16.2 H (<1.0) mg/dL Microbiology - Last 24 Hours (Table) 09/15/20 13:28 Blood Culture - Preliminary Blood No Growth after 96 hours 09/15/20 13:23 Blood Culture - Preliminary Blood No Growth after 96 hours
--- NOTE | 2020-09-20 10:59 | P.PN ---
Subjective Patient is seen in follow-up for end-stage renal disease. He is maintained on hemodialysis on Monday schedule. Underwent lower extremity angiogram and awaits a bypass. No chest pain or shortness of breath. No problems with dialysis yesterday. Vital signs are stable. General: The patient appeared well nourished and normally developed. HEENT: Head exam is unremarkable. Neck is without jugular venous distension. LUNGS: Breath sounds decreased. HEART: Rate and Rhythm are regular. ABDOMEN: Soft, nontender. EXTREMITITES: No edema. Objective - Vital Signs Vital signs: Vital Signs Temp 97.9 F 09/20/20 07:18 Pulse 83 09/20/20 07:45 Resp 18 09/20/20 07:18 BP 131/79 09/20/20 07:18 Pulse Ox 98 09/20/20 07:18 Intake & Output 09/19/20 09/20/20 09/20/20 18:59 06:59 18:59 Intake Total 960 150 Output Total 1000 Balance -40 150 Weight 92.9 kg 93.4 kg Intake: Oral 960 150 Output: Hemodialysis 1000 Other: Voiding Method Toilet Toilet Toilet - Labs CBC & Chem 7: 09/20/20 06:48 09/20/20 06:48 Labs: Abnormal Lab Results - Last 24 Hours (Table) 09/19/20 09/19/20 09/19/20 Range/Units 11:31 16:39 19:56 WBC (3.8-10.6) k/uL RBC (4.30-5.90) m/uL Hgb (13.0-17.5) gm/dL MCHC (31.0-37.0) g/dL RDW (11.5-15.5) % Neutrophils # (1.3-7.7) k/uL Lymphocytes # (1.0-4.8) k/uL ESR (0-15) mm/hr Carbon Dioxide (22-30) mmol/L BUN (9-20) mg/dL Creatinine (0.66-1.25) mg/dL Glucose (74-99) mg/dL POC Glucose (mg/dL) 219 H 115 H 227 H (75-99) mg/dL Phosphorus (2.5-4.5) mg/dL Magnesium (1.6-2.3) mg/dL C-Reactive Protein (<1.0) mg/dL 09/20/20 09/20/20 09/20/20 Range/Units 06:16 06:48 06:48 WBC 11.7 H (3.8-10.6) k/uL RBC 4.18 L (4.30-5.90) m/uL Hgb 12.0 L (13.0-17.5) gm/dL MCHC 30.0 L (31.0-37.0) g/dL RDW 16.5 H (11.5-15.5) % Neutrophils # 10.0 H (1.3-7.7) k/uL Lymphocytes # 0.7 L (1.0-4.8) k/uL ESR 20 H (0-15) mm/hr Carbon Dioxide 18 L (22-30) mmol/L BUN 36 H (9-20) mg/dL Creatinine 7.07 H* (0.66-1.25) mg/dL Glucose 106 H (74-99) mg/dL POC Glucose (mg/dL) 113 H (75-99) mg/dL Phosphorus 6.1 H (2.5-4.5) mg/dL Magnesium 2.4 H (1.6-2.3) mg/dL C-Reactive Protein (<1.0) mg/dL 09/20/20 Range/Units 06:48 WBC (3.8-10.6) k/uL RBC (4.30-5.90) m/uL Hgb (13.0-17.5) gm/dL MCHC (31.0-37.0) g/dL RDW (11.5-15.5) % Neutrophils # (1.3-7.7) k/uL Lymphocytes # (1.0-4.8) k/uL ESR (0-15) mm/hr Carbon Dioxide (22-30) mmol/L BUN (9-20) mg/dL Creatinine (0.66-1.25) mg/dL Glucose (74-99) mg/dL POC Glucose (mg/dL) (75-99) mg/dL Phosphorus (2.5-4.5) mg/dL Magnesium (1.6-2.3) mg/dL C-Reactive Protein 16.2 H (<1.0) mg/dL Microbiology - Last 24 Hours (Table) 09/20/20 03:05 Wound Culture - Preliminary Foot - Left 09/20/20 03:05 Anaerobic Culture - Preliminary Foot - Left 09/15/20 13:28 Blood Culture - Preliminary Blood No Growth after 96 hours 09/15/20 13:23 Blood Culture - Preliminary Blood No Growth after 96 hours Assessment and Plan Plan: Assessment: 1. End-stage renal disease maintained on hemodialysis on Monday schedule via AV fistula. 2. Peripheral arterial disease. Awaits bypass. 3. Chronic kidney disease mineral bone disease maintained on PhosLo. 4. Diabetes mellitus. 5. Hyponatremia secondary to chronic kidney disease. Improved postdialysis. Plan: Hemodialysis Monday.
--- NOTE | 2020-09-20 11:37 | P.PN ---
Subjective Progress Note Date: 09/20/20 Patient is doing fairly well today. No acute overnight. He does not have any complaint this morning. He is awaiting for bypass surgery scheduled for tomorrow. Objective - Vital Signs Vital signs: Vital Signs Temp 97.9 F 09/20/20 07:18 Pulse 83 09/20/20 07:45 Resp 18 09/20/20 07:18 BP 131/79 09/20/20 07:18 Pulse Ox 98 09/20/20 07:18 Intake & Output 09/19/20 09/20/20 09/20/20 18:59 06:59 18:59 Intake Total 960 150 Output Total 1000 Balance -40 150 Weight 92.9 kg 93.4 kg Intake: Oral 960 150 Output: Hemodialysis 1000 Other: Voiding Method Toilet Toilet Toilet - Exam General: The patient is awake and alert, in no distress Eye: there is normal conjunctiva bilaterally. Neck: The neck is supple, there is no JVD. Cardiovascular: Normal S1-S2, no S3-S4, no murmurs. Respiratory: Lungs clear to auscultation bilaterally Gastrointestinal: Abdomen is soft, nontender Musculoskeletal: There is no pedal edema. Left foot wrapped with clean/dry dressing Neurological:. Speech is normal. Skin: Skin is warm and dry - Labs CBC & Chem 7: 09/20/20 06:48 09/20/20 06:48 Labs: Abnormal Lab Results - Last 24 Hours (Table) 09/19/20 09/19/20 09/20/20 Range/Units 16:39 19:56 06:16 WBC (3.8-10.6) k/uL RBC (4.30-5.90) m/uL Hgb (13.0-17.5) gm/dL MCHC (31.0-37.0) g/dL RDW (11.5-15.5) % Neutrophils # (1.3-7.7) k/uL Lymphocytes # (1.0-4.8) k/uL ESR (0-15) mm/hr Carbon Dioxide (22-30) mmol/L BUN (9-20) mg/dL Creatinine (0.66-1.25) mg/dL Glucose (74-99) mg/dL POC Glucose (mg/dL) 115 H 227 H 113 H (75-99) mg/dL Phosphorus (2.5-4.5) mg/dL Magnesium (1.6-2.3) mg/dL C-Reactive Protein (<1.0) mg/dL 09/20/20 09/20/20 09/20/20 Range/Units 06:48 06:48 06:48 WBC 11.7 H (3.8-10.6) k/uL RBC 4.18 L (4.30-5.90) m/uL Hgb 12.0 L (13.0-17.5) gm/dL MCHC 30.0 L (31.0-37.0) g/dL RDW 16.5 H (11.5-15.5) % Neutrophils # 10.0 H (1.3-7.7) k/uL Lymphocytes # 0.7 L (1.0-4.8) k/uL ESR 20 H (0-15) mm/hr Carbon Dioxide 18 L (22-30) mmol/L BUN 36 H (9-20) mg/dL Creatinine 7.07 H* (0.66-1.25) mg/dL Glucose 106 H (74-99) mg/dL POC Glucose (mg/dL) (75-99) mg/dL Phosphorus 6.1 H (2.5-4.5) mg/dL Magnesium 2.4 H (1.6-2.3) mg/dL C-Reactive Protein 16.2 H (<1.0) mg/dL Microbiology - Last 24 Hours (Table) 09/20/20 03:05 Wound Culture - Preliminary Foot - Left 09/20/20 03:05 Anaerobic Culture - Preliminary Foot - Left 09/15/20 13:28 Blood Culture - Preliminary Blood No Growth after 96 hours 09/15/20 13:23 Blood Culture - Preliminary Blood No Growth after 96 hours Assessment and Plan Assessment: Patient is a 65-year-old male with a complex past medical history including diabetes mellitus currently diet controlled, end-stage renal disease on hemodialysis, GERD, hypertension, dyslipidemia who presented with 3 weeks of left third toe discoloration. He underwent sharp excisional debridement of the left second and third toe by Dr. Macias on 09/16. He underwent angiogram on 09/18 and will ultimately need femoral-posterior tibial bypass. Osteomyelitis and dry gangrene associated with diabetes, peripheral arterial disease, and end-stage renal disease -Status post amputation of the left third toe with debrided of the great toe and fourth toe -Continue with Johnny -Consulted infectious disease for antibiotic management -Vascular surgery postoperative recommendations Peripheral arterial disease -Plan is for femoral-tibial bypass tomorrow. Preoperative clearance by cardiology. End-stage renal disease on dialysis Monday//Monday, mineral bone disease, -Continue with dialysis per nephrology -Phoslo elevated liver enzyme -Exact etiology unclear may be attributed to episode of hypotension -Now trending down -Lipitor discontinued DM 2 - diet controlled - SSI - Check A1C Hyponatremia, resolved Hypertension, controlled -Continue with Toprol Dyslipidemia -Statin on hold Obstructive sleep apnea on CPAP DVT prophylaxis: Heparin when okay with vascular Discussed with: Nursing, vascular surgery Anticipated discharge: Pending clinical course Anticipated discharge place: Home with home health A total of 35 minutes was spent on the care of this complex patient more than 50% of the time was spent in counseling and care coordination.
[2020-09-20 11:44] LABS: Glucose,Whole Blood 144 mg/dL (75-99)
--- NOTE | 2020-09-20 12:59 | PN ---
PROGRESS NOTE I performed an evaluation yesterday, a detailed physical exam. He is going for a left femoral to tibial bypass surgery. Risk is high given multiple comorbid conditions. No absolute contraindication. Vital signs stable. S1-S2 heard normally. Short systolic murmur at the base is audible. Lungs reveal diminished air entry. Abdomen and lower exam unchanged. Patient has coronary artery disease, peripheral artery disease. His prognosis overall is guarded and risk of surgery is high, but no contraindication. Advised cautious fluid administration and optimal BP control perioperatively. MMODL / IJN: [id number] /
--- NOTE | 2020-09-20 15:29 | PN ---
PROGRESS NOTE DATE OF SERVICE: 09/20/2020 REASON FOR FOLLOWUP: Left third toe osteomyelitis. INTERVAL HISTORY: Patient is currently afebrile. Patient is breathing comfortably. Denies having any chest pain, shortness of breath. No abdominal pain. Pain to the left foot. PHYSICAL EXAMINATION: Blood pressure 102/63 with a pulse of 61, temperature 97.4. He is 100% on room air. General description is a middle-aged male lying in bed in no distress. Respiratory system: Unlabored breathing, clear to auscultation anteriorly. Heart S1, S2. Regular rate and rhythm. Abdomen soft, no tenderness. Extremities: No edema of the feet. Left foot is currently dressed up. No obvious drainage on the dressing. LABS: Hemoglobin is 12.7, white count 11.7, BUN of 36, creatinine is 7.07. Cultures currently pending. DIAGNOSTIC IMPRESSION AND PLAN: Patient left third toe gangrene with concern for underlying osteomyelitis status post amputation. Waiting for vascular procedure tomorrow, possible bypass. Patient is covered with Zosyn and Vanco, antibiotic adjusted based on culture report. Continue supportive care. MMODL / IJN: [id number] /
[2020-09-20 16:33] LABS: Glucose,Whole Blood 194 mg/dL (75-99)
[2020-09-20 19:16] LABS: Glucose,Whole Blood 188 mg/dL (75-99)
[2020-09-20] MEDS ORDERED: ATORVASTATIN 40 MG TAB PO SCH (21:00)
[2020-09-21 06:22] LABS: Glucose,Whole Blood 135 mg/dL (75-99)
[2020-09-21] MEDS: INSULIN ASPART (NovoLOG) 100 UNIT/ML VIAL SQ SCH ×4 (06:32→21:07)
[2020-09-21] MEDS: CALCIUM ACETATE 667 MG TAB PO SCH ×3 (06:32→18:34)
[2020-09-21 08:13] LABS: Anisocytosis Slight; Basophils # (A) 0.1 k/uL (0-0.2); Basophils % (A) 1 %; Eosinophils # (A) 0.3 k/uL (0-0.7); Eosinophils % (A) 2 %; HCT 38.7 % (39.0-53.0); HGB 12.2 gm/dL (13.0-17.5); Hypochromasia Moderate; Lymphocytes # (A) 0.9 k/uL (1.0-4.8); Lymphocytes % (A) 6 %; MCH 30.2 pg (25.0-35.0); MCHC 31.5 g/dL (31.0-37.0); MCV 95.9 fL (80.0-100.0); Mean Platelet Volume 10.1; Monocytes # (A) 0.8 k/uL (0-1.0); Monocytes % (A) 5 %; Neutrophils # (A) 11.7 k/uL (1.3-7.7); Neutrophils % (A) 84 %; Platelet Count 159 k/uL (150-450); RBC 4.03 m/uL (4.30-5.90); RDW 16.8 % (11.5-15.5); WBC 13.9 k/uL (3.8-10.6)
[2020-09-21 08:36] LABS: Albumin 3.2 g/dL (3.5-5.0); Magnesium 2.4 mg/dL (1.6-2.3); Phosphorus 6.5 mg/dL (2.5-4.5); Potassium 4.8 mmol/L (3.5-5.1); Total Bilirubin 1.3 mg/dL (0.2-1.3); Total Protein 6.1 g/dL (6.3-8.2)
[2020-09-21] MEDS: PIPERACILLIN-TAZOBACTAM 3.375 GM in SODIUM CHLORIDE 0.9% 100 ML IVPB SCH ×2 (09:26→21:06)
[2020-09-21] MEDS: allopurinoL 100 MG TAB PO SCH (09:27)
[2020-09-21] MEDS: METOPROLOL SUCCINATE (ER) 25 MG TAB.ER.24H PO SCH (09:27)
[2020-09-21] MEDS: FLUoxetine HCL 20 MG CAP PO SCH (09:27)
[2020-09-21] MEDS: PREGABALIN 25 MG CAP PO SCH (09:27)
--- NOTE | 2020-09-21 10:18 | P.PN ---
Subjective Progress Note Date: 09/21/20 Hospital course: Patient is a 65-year-old male with a past medical history including ESRD on dialysis Tuesdays//Saturdays, hypertension, hyperlipidemia, and diabetes mellitus. He presented to the hospital on 09/15/20 secondary to 3 weeks of third toe discoloration of left foot. He is currently admitted under our team for necrosis and osteomyelitis to his toes of his left foot with consults to vascular surgery and nephrology for needed dialysis. He underwent sharp excisional debridement of the left great toe and fourth toe with amputation of third toe by Dr. Macias on 09/16/20 followed by angiogram on 09/18/20. Pt is scheduled for Femoral-posterior tibial bypass later today. Wound cultures wew positive for group D strep. Blood cultures remained negative showing no growth after 120 hours. Patient currently on IV antibiotics with Zosyn and vancomycin and is being followed closely by infectious disease, Dr. Larios. Physical exam: Patient seen and fully evaluated at the bedside this morning. Vital signs reviewed and stable. Patient awaiting to be taken down for femoral popliteal tibial bypass today with Dr. Macias. He last received dialysis on 09/19/20 and is due to receive his next scheduled session of dialysis tomorrow (09/22/20). He remains on IV antibiotics Zosyn and vancomycin. Currently patient denies having any complaints or needs including headache, lightheadedness, dizziness, chest pain, palpitations, shortness of breath, abdominal pain, nausea, or vomiting. General: non toxic, no distress, appears at stated age Derm: warm, dry. Toes of left foot cold to touch and status post amputation of left third toe and debridement of left great and forth toes. Left great toe purple discoloration with ulceration an area of necrosis, second and fourth toe also with purple discoloration. Dressing in place. Head: atraumatic, normocephalic, symmetric Eyes: EOMI, no lid lag, anicteric sclera Mouth: No lip lesions, mucus membranes moist Cardiovascular: S1S2 normal with regular rate and rhythm. No murmur, gallop or rub. AV fistula right upper arm with bruit and thrill intact. Lungs: Respirations even, regular, and unlabored on room air. Lungs clear to auscultation bilaterally with no rhonchi, rales, or wheezes noted. Abdominal: Obese abdomen soft, nontender to palpation, no guarding, no appreciable organomegaly. Ext: no gross muscle atrophy, no edema, no contractures. Please see above regarding significant documentation of toes on left foot. Neuro: GCS 15. Speech clear. No focal neuro deficits Psych: Alert, oriented, appropriate affect Plan of care: Osteomyelitis and dry gangrene associated with diabetes, peripheral arterial disease, and end-stage renal disease -Status post amputation of the left third toe with debridement of the left great toe and fourth toe. -Wound cultures wew positive for group D strep. -Blood cultures remained negative showing no growth after 120 hours. -Patient currently on IV antibiotics with Zosyn and vancomycin and is being followed closely by infectious disease, Dr. Larios. -Vascular surgery with plans for femoral popliteal tibial bypass later today, appreciate further postoperative recommendations Peripheral arterial disease -Vascular surgery with plans for femoral popliteal tibial bypass later today, appreciate further postoperative recommendations End-stage renal disease on dialysis Monday//Saturdays -Patient last received dialysis on 09/19/20 and is due to receive his next scheduled session of dialysis tomorrow (09/22/20). -Continue with dialysis per nephrology -Continue PhosLo 1334 mg 3 times daily with meals. Elevated liver enzymes, improving -Exact etiology unclear may be attributed to episode of hypotension -Now trending down -Lipitor discontinued [id number] diabetes mellitus type II -Diet controlled -Continue glycemic protocol with NovoLog sliding scale. -Hgb A1c 8.1% -Renal, heart healthy, and carb consistent diet. Hyponatremia -Sodium 133 -Likely secondary to ESRD and fluid overload, will treat with dialysis and continue to monitor with repeat a.m. labs. Hypertension, controlled -Continue with Toprol Xl Dyslipidemia -Statin on hold Obstructive sleep apnea CPAP dependent nightly -Continue with nightly home CPAP maintaining personal settings. -Encourage use of incentive spirometry 10-15 times hourly while awake. DVT prophylaxis: Resume subcutaneous Heparin when okay'd with vascular Discussed with: Patient, RN Anticipated discharge: Pending clinical course Anticipated discharge place: Home with home health A total of 45 minutes was spent on the care of this complex patient more than 50% of the time was spent in counseling and care coordination. Objective - Vital Signs Vital signs: Vital Signs Temp 98.1 F 09/20/20 20:10 Pulse 69 09/20/20 23:10 Resp 18 09/20/20 23:10 BP 134/77 09/20/20 23:10 Pulse Ox 94 L 09/20/20 23:10 Intake & Output 09/20/20 09/21/20 09/21/20 18:59 06:59 18:59 Intake Total 505 Balance 505 Weight 52 kg Intake: Oral 505 Other: Voiding Method Toilet Toilet - Labs CBC & Chem 7: 09/21/20 07:45 09/21/20 07:45 Labs: Abnormal Lab Results - Last 24 Hours (Table) 09/20/20 09/20/20 09/20/20 Range/Units 11:42 16:31 19:14 WBC (3.8-10.6) k/uL RBC (4.30-5.90) m/uL Hgb (13.0-17.5) gm/dL Hct (39.0-53.0) % RDW (11.5-15.5) % Neutrophils # (1.3-7.7) k/uL Lymphocytes # (1.0-4.8) k/uL Sodium (137-145) mmol/L Carbon Dioxide (22-30) mmol/L BUN (9-20) mg/dL Creatinine (0.66-1.25) mg/dL Glucose (74-99) mg/dL POC Glucose (mg/dL) 144 H 194 H 188 H (75-99) mg/dL Phosphorus (2.5-4.5) mg/dL Magnesium (1.6-2.3) mg/dL AST (17-59) U/L ALT (4-49) U/L Alkaline Phosphatase (38-126) U/L Total Protein (6.3-8.2) g/dL Albumin (3.5-5.0) g/dL 09/21/20 09/21/20 09/21/20 Range/Units 06:20 07:45 07:45 WBC 13.9 H (3.8-10.6) k/uL RBC 4.03 L (4.30-5.90) m/uL Hgb 12.2 L (13.0-17.5) gm/dL Hct 38.7 L (39.0-53.0) % RDW 16.8 H (11.5-15.5) % Neutrophils # 11.7 H (1.3-7.7) k/uL Lymphocytes # 0.9 L (1.0-4.8) k/uL Sodium 133 L (137-145) mmol/L Carbon Dioxide 16 L (22-30) mmol/L BUN 49 H (9-20) mg/dL Creatinine 8.43 H* (0.66-1.25) mg/dL Glucose 130 H (74-99) mg/dL POC Glucose (mg/dL) 135 H (75-99) mg/dL Phosphorus 6.5 H (2.5-4.5) mg/dL Magnesium 2.4 H (1.6-2.3) mg/dL AST 188 H (17-59) U/L ALT 319 H (4-49) U/L Alkaline Phosphatase 364 H (38-126) U/L Total Protein 6.1 L (6.3-8.2) g/dL Albumin 3.2 L (3.5-5.0) g/dL Microbiology - Last 24 Hours (Table) 09/20/20 03:05 Gram Stain - Preliminary Foot - Left Wound Culture - Preliminary Group D Enterococcus 09/15/20 13:23 Blood Culture - Preliminary Blood No Growth after 120 hours 09/15/20 13:28 Blood Culture - Preliminary Blood No Growth after 120 hours 09/20/20 03:05 Anaerobic Culture - Preliminary Foot - Left
[2020-09-21] MEDS: HYDROcodone/APAP 5-325MG 1 EACH TAB PO PRN (11:08)
[2020-09-21] MEDS ORDERED: IV FLUID CONTINUATION 1,000 ML IV ONE (11:25)
--- NOTE | 2020-09-21 11:26 | P.PN ---
Subjective Patient is seen in follow-up for end-stage renal disease. He is maintained on hemodialysis on Monday schedule. Underwent lower extremity angiogram and awaits a bypass. No chest pain or shortness of breath. No changes overnight. Vital signs are stable. General: The patient appeared well nourished and normally developed. HEENT: Head exam is unremarkable. Neck is without jugular venous distension. LUNGS: Breath sounds decreased. HEART: Rate and Rhythm are regular. ABDOMEN: Soft, nontender. EXTREMITITES: No edema. Objective - Vital Signs Vital signs: Vital Signs Temp 98.1 F 09/20/20 20:10 Pulse 69 09/20/20 23:10 Resp 18 09/20/20 23:10 BP 134/77 09/20/20 23:10 Pulse Ox 94 L 09/20/20 23:10 Intake & Output 09/20/20 09/21/20 09/21/20 18:59 06:59 18:59 Intake Total 505 Balance 505 Weight 52 kg Intake: Oral 505 Other: Voiding Method Toilet Toilet - Labs CBC & Chem 7: 09/21/20 07:45 09/21/20 07:45 Labs: Abnormal Lab Results - Last 24 Hours (Table) 09/20/20 09/20/20 09/20/20 Range/Units 11:42 16:31 19:14 WBC (3.8-10.6) k/uL RBC (4.30-5.90) m/uL Hgb (13.0-17.5) gm/dL Hct (39.0-53.0) % RDW (11.5-15.5) % Neutrophils # (1.3-7.7) k/uL Lymphocytes # (1.0-4.8) k/uL Sodium (137-145) mmol/L Carbon Dioxide (22-30) mmol/L BUN (9-20) mg/dL Creatinine (0.66-1.25) mg/dL Glucose (74-99) mg/dL POC Glucose (mg/dL) 144 H 194 H 188 H (75-99) mg/dL Phosphorus (2.5-4.5) mg/dL Magnesium (1.6-2.3) mg/dL AST (17-59) U/L ALT (4-49) U/L Alkaline Phosphatase (38-126) U/L Total Protein (6.3-8.2) g/dL Albumin (3.5-5.0) g/dL 09/21/20 09/21/20 09/21/20 Range/Units 06:20 07:45 07:45 WBC 13.9 H (3.8-10.6) k/uL RBC 4.03 L (4.30-5.90) m/uL Hgb 12.2 L (13.0-17.5) gm/dL Hct 38.7 L (39.0-53.0) % RDW 16.8 H (11.5-15.5) % Neutrophils # 11.7 H (1.3-7.7) k/uL Lymphocytes # 0.9 L (1.0-4.8) k/uL Sodium 133 L (137-145) mmol/L Carbon Dioxide 16 L (22-30) mmol/L BUN 49 H (9-20) mg/dL Creatinine 8.43 H* (0.66-1.25) mg/dL Glucose 130 H (74-99) mg/dL POC Glucose (mg/dL) 135 H (75-99) mg/dL Phosphorus 6.5 H (2.5-4.5) mg/dL Magnesium 2.4 H (1.6-2.3) mg/dL AST 188 H (17-59) U/L ALT 319 H (4-49) U/L Alkaline Phosphatase 364 H (38-126) U/L Total Protein 6.1 L (6.3-8.2) g/dL Albumin 3.2 L (3.5-5.0) g/dL Microbiology - Last 24 Hours (Table) 09/20/20 03:05 Gram Stain - Preliminary Foot - Left Wound Culture - Preliminary Group D Enterococcus 09/15/20 13:23 Blood Culture - Preliminary Blood No Growth after 120 hours 09/15/20 13:28 Blood Culture - Preliminary Blood No Growth after 120 hours 09/20/20 03:05 Anaerobic Culture - Preliminary Foot - Left Assessment and Plan Plan: Assessment: 1. End-stage renal disease maintained on hemodialysis on Monday schedule via AV fistula. 2. Peripheral arterial disease. Awaits bypass. 3. Chronic kidney disease mineral bone disease maintained on PhosLo. 4. Diabetes mellitus. 5. Hyponatremia secondary to chronic kidney disease. Expect improvement postdialysis. Plan: Hemodialysis Monday.
[2020-09-21 12:04] LABS: Glucose,Whole Blood 115 mg/dL (75-99)
[2020-09-21] MEDS ORDERED: ONDANSETRON 4 MG/2 ML VIAL IVP ONE (12:06)
[2020-09-21] MEDS ORDERED: PHENYLEPHRINE-0.9% NACL SYG 1,000 MCG/10 ML SYRINGE ONE (12:30)
[2020-09-21] MEDS ORDERED: fentaNYL (PF) 50 MCG/ML 2 ML AMP ONE (12:30)
[2020-09-21] MEDS ORDERED: MIDAZOLAM 2 MG/2 ML VIAL ONE (12:30)
[2020-09-21] MEDS ORDERED: HEPARIN SODIUM,PORCINE 10,000 UNIT/ML 1 ML VIAL ONE (12:30)
[2020-09-21] MEDS ORDERED: HEPARIN SODIUM 1,000 UN/ML (10ML VL) IRRIGATION ONE (12:35)
[2020-09-21] MEDS ORDERED: THROMBIN (BOVINE) 5,000 UNIT VIAL TOPICAL ONE (12:35)
[2020-09-21] MEDS ORDERED: ceFAZolin 1,000 MG VIAL IRRIGATION ONE (12:35)
[2020-09-21] MEDS ORDERED: GELATIN SPONGE,ABSORB (LARGE) 1 EACH SPONGE TOPICAL ONE (12:35)
[2020-09-21 12:49] LABS: INR 1.3 (<1.2)
[2020-09-21] MEDS ORDERED: VANCOMYCIN 1,500 MG in SODIUM CHLORIDE 0.9% 250 ML IVPB ONE (16:00)
[2020-09-21] MEDS ORDERED: MORPHINE SULFATE 2 MG/ML SYRINGE IVP PRN (16:23)
--- NOTE | 2020-09-21 16:37 | P.OP ---
Date of Procedure: 09/21/20 Description of Procedure: Preoperative diagnosis: Critical limb ischemia left lower extremity, wet beth grene of the second and third toe with history of amputation, left popliteal and tibial peroneal trunk occlusion Postoperative diagnosis: Same Procedure: Left Femoral-tibial artery bypass with CryoVein graft Surgeon: Martínez Chou D.O. head start assistant teacher: Reyna Macias D.O. Anesthesia: Spinal Estimated blood loss: 50 mL Complications: None Condition: Stable Disposition: Multiphasic PT signal Indication for procedure: 65-year-old gentleman with history of claudication and left lower extremity dry gangrene at the distal tips of the first and second toe presented back to the office after a CT angiogram of the lower extremities demonstrated SWEEPER DRIVER of the distal SFA and popliteal artery. Upon his evaluation in the office he was noted to have wet gangrene and was sent to the hospital for admission. He has been currently treated with antibiotics as well as underwent a left toe amputation and had an angiogram demonstrating severe calcification and popliteal artery occlusion with reconstitution distal at the posterior tibial artery just after the takeoff. It was discussed to perform a bypass of his lower extremity and he underwent vein mapping which demonstrated small veins that were unsuitable for bypass and therefore CryoVein was utilized. Operative narrative: After written and informed consent was obtained from the patient all risks benefits and competitions were described the patient is brought to the operative suite and laid in a supine position. The area of the abdomen, left lower extremity was prepped and draped in usual sterile fashion after appropriate anesthetic was performed per the anesthesiologist. A timeout was performed in normal fashion. Antibiotics were administered prior to incision. A vertical incision was created at the medial aspect of the thigh just above the knee and dissection was carried down to the superficial femoral artery. The superficial femoral artery was dissected free in a circumferential manner and controlled with vessel loops. A vertical incision was created at the medial aspect of the ankle just above the medial malleolus with a 10 blade scalpel and dissection was carried down to the posterior tibial artery. The artery was then dissected free in a circumferential manner and controlled with vessel loops. Upon dissection the artery was Severely calcified. A tunnel was then created from the 2 incision sites in a subfascial manner and the CryoVein was prepped in normal fashion and tunneled between the 2 incisions. Patient was then administered heparin. Attention was then placed to the bypass and arteriotomy was created with 11 blade scalpel at the superficial femoral artery and extended with Pott Garcia scissors. The CryoVein was then spatulated and a end-to-side anastomosis was then created with 6-0 Prolene suture in a running fashion. Control was released demonstrating good pulsatile flow into the distal aspect of the bypass. Arteriotomy was then created with 11 blade scalpel at the posterior tibial artery and extended with Pott Garcia scissors. There was good backbleeding noted. The CryoVein was then spatulated and an end-to-side anastomosis was created with 7-0 Prolene suture in a running fashion. Prior to last sutures being placed backbleeding was once again assessed which was adequate and proximal control was released revealing good pulsatile blood flow. Final sutures were placed and good pulsatile blood flow was noted within the bypass. Doppler signals were then noted distal to the bypass and were multiphasic. The areas were then copiously irrigated with antibiotic solution. The incisions were then closed in a multilayer fashion with 3-0 Vicryl and 4-0 Monocryl for the skin after hemostasis was assured with Gelfoam and thrombin and the skin was then cleansed and dressings were placed. Prevena incisional VAC was placed at the medial thigh incision. The patient tolerated procedure well was sent to PACU for recovery.
[2020-09-21 16:44] LABS: Glucose,Whole Blood 107 mg/dL (75-99)
[2020-09-21 17:44] LABS: Glucose,Whole Blood 116 mg/dL (75-99)
[2020-09-21 20:34] LABS: Glucose,Whole Blood 167 mg/dL (75-99)
[2020-09-22 06:07] LABS: Glucose,Whole Blood 206 mg/dL (75-99)
[2020-09-22] MEDS: CALCIUM ACETATE 667 MG TAB PO SCH ×3 (06:22→17:10)
[2020-09-22] MEDS: INSULIN ASPART (NovoLOG) 100 UNIT/ML VIAL SQ SCH ×4 (06:22→20:27)
[2020-09-22 08:12] LABS: Anisocytosis Slight; Basophils # (A) 0.1 k/uL (0-0.2); Basophils % (A) 1 %; Eosinophils # (A) 0.2 k/uL (0-0.7); Eosinophils % (A) 1 %; HCT 41.3 % (39.0-53.0); HGB 12.2 gm/dL (13.0-17.5); Hypochromasia Marked; Lymphocytes # (A) 0.8 k/uL (1.0-4.8); Lymphocytes % (A) 5 %; MCH 29.2 pg (25.0-35.0); MCHC 29.6 g/dL (31.0-37.0); MCV 98.4 fL (80.0-100.0); Macrocytosis Slight; Mean Platelet Volume 10.3; Monocytes # (A) 0.8 k/uL (0-1.0); Monocytes % (A) 4 %; Neutrophils # (A) 15.5 k/uL (1.3-7.7); Neutrophils % (A) 88 %; Platelet Count 186 k/uL (150-450); RDW 17.5 % (11.5-15.5); WBC 17.7 k/uL (3.8-10.6)
[2020-09-22 08:19] LABS: Calcium 10.1 mg/dL (8.4-10.2); Magnesium 2.5 mg/dL (1.6-2.3); Phosphorus 8.2 mg/dL (2.5-4.5)
--- NOTE | 2020-09-22 10:59 | P.PN ---
Subjective Progress Note Date: 09/22/20 Patient is doing well today. Vascular surgery changing the dressing today at the time of my evaluation. No acute events overnight. Objective - Vital Signs Vital signs: Vital Signs Temp 97.6 F 09/22/20 05:30 Pulse 68 09/22/20 08:00 Resp 16 09/22/20 08:00 BP 96/56 09/22/20 08:00 Pulse Ox 97 09/22/20 08:00 Intake & Output 09/21/20 09/22/20 09/22/20 18:59 06:59 18:59 Intake Total 542 Output Total 60 Balance 482 Weight 101.5 kg Intake: IV 320 Oral 222 Output: Urine 10 Estimated Blood Loss 50 Other: Voiding Method Toilet Toilet - Exam General: The patient is awake and alert, in no distress Eye: there is normal conjunctiva bilaterally. Neck: The neck is supple, there is no JVD. Cardiovascular: Normal S1-S2, no S3-S4, no murmurs. Respiratory: Lungs clear to auscultation bilaterally Gastrointestinal: Abdomen is soft, nontender Musculoskeletal: There is no pedal edema. Left foot wrapped with clean/dry dressing Neurological:. Speech is normal. Skin: Skin is warm and dry - Labs CBC & Chem 7: 09/22/20 07:38 09/22/20 07:38 Labs: Abnormal Lab Results - Last 24 Hours (Table) 09/21/20 09/21/20 09/21/20 Range/Units 12:00 12:00 16:42 WBC (3.8-10.6) k/uL RBC (4.30-5.90) m/uL Hgb (13.0-17.5) gm/dL MCHC (31.0-37.0) g/dL RDW (11.5-15.5) % Neutrophils # (1.3-7.7) k/uL Lymphocytes # (1.0-4.8) k/uL PT 13.0 H (9.0-12.0) sec INR 1.3 H (<1.2) Sodium (137-145) mmol/L Chloride (98-107) mmol/L Carbon Dioxide (22-30) mmol/L BUN (9-20) mg/dL Creatinine (0.66-1.25) mg/dL Glucose (74-99) mg/dL POC Glucose (mg/dL) 115 H 107 H (75-99) mg/dL Phosphorus (2.5-4.5) mg/dL Magnesium (1.6-2.3) mg/dL 09/21/20 09/21/20 09/22/20 Range/Units 17:24 20:32 06:00 WBC (3.8-10.6) k/uL RBC (4.30-5.90) m/uL Hgb (13.0-17.5) gm/dL MCHC (31.0-37.0) g/dL RDW (11.5-15.5) % Neutrophils # (1.3-7.7) k/uL Lymphocytes # (1.0-4.8) k/uL PT (9.0-12.0) sec INR (<1.2) Sodium (137-145) mmol/L Chloride (98-107) mmol/L Carbon Dioxide (22-30) mmol/L BUN (9-20) mg/dL Creatinine (0.66-1.25) mg/dL Glucose (74-99) mg/dL POC Glucose (mg/dL) 116 H 167 H 206 H (75-99) mg/dL Phosphorus (2.5-4.5) mg/dL Magnesium (1.6-2.3) mg/dL 09/22/20 09/22/20 Range/Units 07:38 07:38 WBC 17.7 H (3.8-10.6) k/uL RBC 4.20 L (4.30-5.90) m/uL Hgb 12.2 L (13.0-17.5) gm/dL MCHC 29.6 L (31.0-37.0) g/dL RDW 17.5 H (11.5-15.5) % Neutrophils # 15.5 H (1.3-7.7) k/uL Lymphocytes # 0.8 L (1.0-4.8) k/uL PT (9.0-12.0) sec INR (<1.2) Sodium 134 L (137-145) mmol/L Chloride 97 L (98-107) mmol/L Carbon Dioxide 16 L (22-30) mmol/L BUN 57 H (9-20) mg/dL Creatinine 9.49 H* (0.66-1.25) mg/dL Glucose 169 H (74-99) mg/dL POC Glucose (mg/dL) (75-99) mg/dL Phosphorus 8.2 H (2.5-4.5) mg/dL Magnesium 2.5 H (1.6-2.3) mg/dL Microbiology - Last 24 Hours (Table) 09/15/20 13:23 Blood Culture - Final Blood No Growth after 144 hours 09/15/20 13:28 Blood Culture - Final Blood No Growth after 144 hours 09/20/20 03:05 Gram Stain - Preliminary Foot - Left Wound Culture - Preliminary Group D Enterococcus Assessment and Plan Assessment: Patient is a 65-year-old male with a complex past medical history including diabetes mellitus currently diet controlled, end-stage renal disease on hemodi alysis, GERD, hypertension, dyslipidemia who presented with 3 weeks of left third toe discoloration. He underwent sharp excisional debridement of the left second and third toe by Dr. Macias on 09/16. He underwent angiogram on 09/18 and will ultimately need femoral-posterior tibial bypass. Osteomyelitis and dry gangrene associated with diabetes, peripheral arterial disease, and end-stage renal disease -Status post amputation of the left third toe with debrided of the great toe and fourth toe -On Wy[place] and Talita managed by infectious disease -Vascular surgery postoperative and wound care management recommendations Peripheral arterial disease -Postoperative day #1 status post left femoral-tibial bypass End-stage renal disease on dialysis Monday//Monday, mineral bone disease, -Continue with dialysis per nephrology -Phoslo elevated liver enzyme -Exact etiology unclear may be attributed to episode of hypotension -Now trending down -Lipitor discontinued DM 2 - diet controlled - SSI - A1C 8.2 in June Hyponatremia, resolved Hypertension, controlled -Continue with Toprol Dyslipidemia -Statin on hold Obstructive sleep apnea on CPAP DVT prophylaxis: Heparin when okay with vascular Discussed with: Nursing, vascular surgery Anticipated discharge: Tomorrow Anticipated discharge place: Home with home health A total of 35 minutes was spent on the care of this complex patient more than 50% of the time was spent in counseling and care coordination.
--- NOTE | 2020-09-22 11:33 | P.PN ---
Subjective Progress Note Date: 09/22/20 Principal diagnosis: Gangrene third toe, peripheral arterial disease The patient was seen and examined lying in bed. He is status post left femoral- tibial artery bypass with CryoVein graft. He states he does have significant pain to the left lower extremity. His Prevena VAC is intact to the medial aspect of left thigh. He denies any fevers or chills, abdominal pain, nausea, vomiting, chest pain or shortness of breath. Objective - Vital Signs Vital signs: Vital Signs Temp 97.6 F 09/22/20 05:30 Pulse 68 09/22/20 08:00 Resp 16 09/22/20 08:00 BP 96/56 09/22/20 08:00 Pulse Ox 97 09/22/20 08:00 Intake & Output 09/21/20 09/22/20 09/22/20 18:59 06:59 18:59 Intake Total 542 Output Total 60 Balance 482 Weight 101.5 kg Intake: IV 320 Oral 222 Output: Urine 10 Estimated Blood Loss 50 Other: Voiding Method Toilet Toilet - Exam General appearance: The patient is alert, oriented, in no acute distress. HET: Head is normocephalic and atraumatic. Neck: Supple without lymphadenopathy. Trachea midline. Abdomen: Soft, nontender, nondistended. Extremities: Left Great toe debridement with necrotic tissue, fourth toe debridement site with area of necrotic tissue, amputation site of the third toe with soft tissue, no drainage noted. Left medial aspect of the thigh with Prevena dressing intact, multiphasic posterior tibialis Doppler signal, faint monophasic doppler signal of dorsalis pedis. Neurological: No focal deficits. Strength and sensation are grossly intact. - Labs CBC & Chem 7: 09/22/20 07:38 09/22/20 07:38 Labs: Abnormal Lab Results - Last 24 Hours (Table) 09/21/20 09/21/20 09/21/20 Range/Units 12:00 12:00 16:42 WBC (3.8-10.6) k/uL RBC (4.30-5.90) m/uL Hgb (13.0-17.5) gm/dL MCHC (31.0-37.0) g/dL RDW (11.5-15.5) % Neutrophils # (1.3-7.7) k/uL Lymphocytes # (1.0-4.8) k/uL PT 13.0 H (9.0-12.0) sec INR 1.3 H (<1.2) Sodium (137-145) mmol/L Chloride (98-107) mmol/L Carbon Dioxide (22-30) mmol/L BUN (9-20) mg/dL Creatinine (0.66-1.25) mg/dL Glucose (74-99) mg/dL POC Glucose (mg/dL) 115 H 107 H (75-99) mg/dL Phosphorus (2.5-4.5) mg/dL Magnesium (1.6-2.3) mg/dL 09/21/20 09/21/20 09/22/20 Range/Units 17:24 20:32 06:00 WBC (3.8-10.6) k/uL RBC (4.30-5.90) m/uL Hgb (13.0-17.5) gm/dL MCHC (31.0-37.0) g/dL RDW (11.5-15.5) % Neutrophils # (1.3-7.7) k/uL Lymphocytes # (1.0-4.8) k/uL PT (9.0-12.0) sec INR (<1.2) Sodium (137-145) mmol/L Chloride (98-107) mmol/L Carbon Dioxide (22-30) mmol/L BUN (9-20) mg/dL Creatinine (0.66-1.25) mg/dL Glucose (74-99) mg/dL POC Glucose (mg/dL) 116 H 167 H 206 H (75-99) mg/dL Phosphorus (2.5-4.5) mg/dL Magnesium (1.6-2.3) mg/dL 09/22/20 09/22/20 Range/Units 07:38 07:38 WBC 17.7 H (3.8-10.6) k/uL RBC 4.20 L (4.30-5.90) m/uL Hgb 12.2 L (13.0-17.5) gm/dL MCHC 29.6 L (31.0-37.0) g/dL RDW 17.5 H (11.5-15.5) % Neutrophils # 15.5 H (1.3-7.7) k/uL Lymphocytes # 0.8 L (1.0-4.8) k/uL PT (9.0-12.0) sec INR (<1.2) Sodium 134 L (137-145) mmol/L Chloride 97 L (98-107) mmol/L Carbon Dioxide 16 L (22-30) mmol/L BUN 57 H (9-20) mg/dL Creatinine 9.49 H* (0.66-1.25) mg/dL Glucose 169 H (74-99) mg/dL POC Glucose (mg/dL) (75-99) mg/dL Phosphorus 8.2 H (2.5-4.5) mg/dL Magnesium 2.5 H (1.6-2.3) mg/dL Microbiology - Last 24 Hours (Table) 09/15/20 13:23 Blood Culture - Final Blood No Growth after 144 hours 09/15/20 13:28 Blood Culture - Final Blood No Growth after 144 hours 09/20/20 03:05 Gram Stain - Preliminary Foot - Left Wound Culture - Preliminary Group D Enterococcus Assessment and Plan Assessment: 1. Post op day #1 for left femoral-tibial artery bypass with CryoVein graft 2. Critical limb ischemia lower left extremity, left popliteal and tibial peroneal trunk occlusion 3. Postop left foot third toe amputation with debridement of great toe and fourth toe 4. Left foot third and fourth toe gangrene with possible osteomyelitis, left great toe wound 5. Peripheral arterial disease 6. History of coronary artery disease, status post CABG 7. Diabetes mellitus 8. End-stage renal disease on hemodialysis and status post kidney transplant 9. Hypertension 10. Hyperlipidemia 11. Obstructive sleep apnea on CPAP Plan: 1. Continue IV antibiotics as ordered 2. Consistent carbohydrate diet 3. Daily wet-to-dry dressing with dakins solution to amputation and debridement site 4. Patient is status post left femoral-tibial artery bypass with CryoVein graft 5. Hemodialysis as scheduled per nephrology 6. Patient to have orthopnea boot on left lower extremity with ambulating, heel only Likely patient may be discharged home tomorrow from a vascular surgical standpoint. Thank you for this consultation, we will continue to follow The impression and plan of care has been dictated as directed. Dr. Macias I performed a history and examination of this patient, discussed the same with the dictator. I agree with the dictator's note ,documented as a scribe. Any additional findings or plans will be noted.
[2020-09-22 12:14] LABS: Glucose,Whole Blood 154 mg/dL (75-99)
[2020-09-22] MEDS: allopurinoL 100 MG TAB PO SCH (12:26)
[2020-09-22] MEDS: ASPIRIN 81 MG PO SCH (12:26)
[2020-09-22] MEDS: METOPROLOL SUCCINATE (ER) 25 MG TAB.ER.24H PO SCH (12:26)
[2020-09-22] MEDS: CLOPIDOGREL 75 MG TAB PO SCH (12:26)
[2020-09-22] MEDS: PREGABALIN 25 MG CAP PO SCH (12:26)
[2020-09-22] MEDS: PIPERACILLIN-TAZOBACTAM 3.375 GM in SODIUM CHLORIDE 0.9% 100 ML IVPB SCH ×2 (12:27→20:26)
[2020-09-22] MEDS: FLUoxetine HCL 20 MG CAP PO SCH (12:27)
[2020-09-22] MEDS: HYDROcodone/APAP 5-325MG 1 EACH TAB PO PRN ×2 (12:29→20:27)
--- NOTE | 2020-09-22 12:32 | P.PN ---
Subjective This is a pleasant 65-year-old male past medical history significant for end-stage renal disease on hemodialysis, hypertension, dyslipidemia, coronary artery disease status post bypass grafting, ischemic cardiomyopathy, chronic systolic heart failure, valvular heart disease, peripheral vascular disease and chronic nicotine dependence. He follows in the office with Dr. Renteria. He underwent left femoraltibial artery bypass with CryoVein graft yesterday with Dr. Chou. He is seen and examined resting comfortably lying flat in bed undergoing hemodialysis. He has no symptoms of chest discomfort or shortness of breath. Telemetry tracings have been unremarkable. He is complaining only of pain at the left lower extremity. Blood pressure 96/56 heart rate 68 afebrile maintaining oxygen saturation on room air. Laboratory data reviewed, WBC 17.7, hemoglobin 12.2, platelets 186, sodium 134, potassium 5.0, creatinine 9.49 and magnesium 2.5. Currently maintained on aspirin 81 mg daily, Plavix 75 mg daily and Toprol 25 mg daily. GENERAL: Well-appearing, well-nourished and in no acute distress. NECK: Supple without JVD or thyromegaly. LUNGS: Breath sounds clear to auscultation bilaterally. Respiration equal and unlabored. No wheezes, rales or rhonchi. HEART: Regular rate and rhythm with systolic ejection murmur at the base, no rubs or gallops. S1 and S2 heard. EXTREMITIES: Normal range of motion, no edema. Dressing in place to the left lower extremity. ASSESSMENT Peripheral vascular disease status post left femoral/tibial artery bypass Coronary artery disease status post bypass grafting Ischemic cardiomyopathy Chronic systolic heart failure, clinically euvolemic End-stage renal disease on hemodialysis Hypertension Dyslipidemia Valvular heart disease Chronic nicotine dependence PLAN He is hemodynamically stable undergoing dialysis. The currently maintained on JACQUI/ARB due to hypotension. If his blood pressure improves we may initiate in the future. Consider implantation of ICD with Dr. Renteria in the office. Ongoing medical management. Nurse Practitioner note has been reviewed, I agree with a documented findings and plan of care. Patient was seen and examined. Objective - Vital Signs Vital signs: Vital Signs Temp 97.6 F 09/22/20 05:30 Pulse 68 09/22/20 08:00 Resp 16 09/22/20 08:00 BP 96/56 09/22/20 08:00 Pulse Ox 97 09/22/20 08:00 Intake & Output 09/21/20 09/22/20 09/22/20 18:59 06:59 18:59 Intake Total 542 240 Output Total 60 Balance 482 240 Weight 101.5 kg Intake: IV 320 Oral 222 240 Output: Urine 10 Estimated Blood Loss 50 Other: Voiding Method Toilet Toilet Toilet - Labs CBC & Chem 7: 09/22/20 07:38 09/22/20 07:38 Labs: Abnormal Lab Results - Last 24 Hours (Table) 09/21/20 09/21/20 09/21/20 Range/Units 12:00 16:42 17:24 WBC (3.8-10.6) k/uL RBC (4.30-5.90) m/uL Hgb (13.0-17.5) gm/dL MCHC (31.0-37.0) g/dL RDW (11.5-15.5) % Neutrophils # (1.3-7.7) k/uL Lymphocytes # (1.0-4.8) k/uL PT 13.0 H (9.0-12.0) sec INR 1.3 H (<1.2) Sodium (137-145) mmol/L Chloride (98-107) mmol/L Carbon Dioxide (22-30) mmol/L BUN (9-20) mg/dL Creatinine (0.66-1.25) mg/dL Glucose (74-99) mg/dL POC Glucose (mg/dL) 107 H 116 H (75-99) mg/dL Phosphorus (2.5-4.5) mg/dL Magnesium (1.6-2.3) mg/dL 09/21/20 09/22/20 09/22/20 Range/Units 20:32 06:00 07:38 WBC (3.8-10.6) k/uL RBC (4.30-5.90) m/uL Hgb (13.0-17.5) gm/dL MCHC (31.0-37.0) g/dL RDW (11.5-15.5) % Neutrophils # (1.3-7.7) k/uL Lymphocytes # (1.0-4.8) k/uL PT (9.0-12.0) sec INR (<1.2) Sodium 134 L (137-145) mmol/L Chloride 97 L (98-107) mmol/L Carbon Dioxide 16 L (22-30) mmol/L BUN 57 H (9-20) mg/dL Creatinine 9.49 H* (0.66-1.25) mg/dL Glucose 169 H (74-99) mg/dL POC Glucose (mg/dL) 167 H 206 H (75-99) mg/dL Phosphorus 8.2 H (2.5-4.5) mg/dL Magnesium 2.5 H (1.6-2.3) mg/dL 09/22/20 09/22/20 Range/Units 07:38 11:40 WBC 17.7 H (3.8-10.6) k/uL RBC 4.20 L (4.30-5.90) m/uL Hgb 12.2 L (13.0-17.5) gm/dL MCHC 29.6 L (31.0-37.0) g/dL RDW 17.5 H (11.5-15.5) % Neutrophils # 15.5 H (1.3-7.7) k/uL Lymphocytes # 0.8 L (1.0-4.8) k/uL PT (9.0-12.0) sec INR (<1.2) Sodium (137-145) mmol/L Chloride (98-107) mmol/L Carbon Dioxide (22-30) mmol/L BUN (9-20) mg/dL Creatinine (0.66-1.25) mg/dL Glucose (74-99) mg/dL POC Glucose (mg/dL) 154 H (75-99) mg/dL Phosphorus (2.5-4.5) mg/dL Magnesium (1.6-2.3) mg/dL Microbiology - Last 24 Hours (Table) 09/15/20 13:23 Blood Culture - Final Blood No Growth after 144 hours 09/15/20 13:28 Blood Culture - Final Blood No Growth after 144 hours 09/20/20 03:05 Gram Stain - Preliminary Foot - Left Wound Culture - Preliminary Group D Enterococcus
--- NOTE | 2020-09-22 12:40 | P.PN ---
Subjective Patient is seen in follow-up for end-stage renal disease. He is maintained on hemodialysis on Monday schedule. Underwent lower extremity angiogram and bypass this admission. Tolerating dialysis well. No chest pain or shortness of breath. Vital signs are stable. General: The patient appeared well nourished and normally developed. HEENT: Head exam is unremarkable. Neck is without jugular venous distension. LUNGS: Breath sounds decreased. HEART: Rate and Rhythm are regular. ABDOMEN: Soft, nontender. EXTREMITITES: No edema. No drainage noted. Objective - Vital Signs Vital signs: Vital Signs Temp 97.6 F 09/22/20 05:30 Pulse 69 09/22/20 12:00 Resp 16 09/22/20 12:00 BP 134/61 09/22/20 12:00 Pulse Ox 94 L 09/22/20 12:00 Intake & Output 09/21/20 09/22/20 09/22/20 18:59 06:59 18:59 Intake Total 542 240 Output Total 60 Balance 482 240 Weight 101.5 kg Intake: IV 320 Oral 222 240 Output: Urine 10 Estimated Blood Loss 50 Other: Voiding Method Toilet Toilet Toilet - Labs CBC & Chem 7: 09/22/20 07:38 09/22/20 07:38 Labs: Abnormal Lab Results - Last 24 Hours (Table) 09/21/20 09/21/20 09/21/20 Range/Units 12:00 16:42 17:24 WBC (3.8-10.6) k/uL RBC (4.30-5.90) m/uL Hgb (13.0-17.5) gm/dL MCHC (31.0-37.0) g/dL RDW (11.5-15.5) % Neutrophils # (1.3-7.7) k/uL Lymphocytes # (1.0-4.8) k/uL PT 13.0 H (9.0-12.0) sec INR 1.3 H (<1.2) Sodium (137-145) mmol/L Chloride (98-107) mmol/L Carbon Dioxide (22-30) mmol/L BUN (9-20) mg/dL Creatinine (0.66-1.25) mg/dL Glucose (74-99) mg/dL POC Glucose (mg/dL) 107 H 116 H (75-99) mg/dL Phosphorus (2.5-4.5) mg/dL Magnesium (1.6-2.3) mg/dL 09/21/20 09/22/20 09/22/20 Range/Units 20:32 06:00 07:38 WBC (3.8-10.6) k/uL RBC (4.30-5.90) m/uL Hgb (13.0-17.5) gm/dL MCHC (31.0-37.0) g/dL RDW (11.5-15.5) % Neutrophils # (1.3-7.7) k/uL Lymphocytes # (1.0-4.8) k/uL PT (9.0-12.0) sec INR (<1.2) Sodium 134 L (137-145) mmol/L Chloride 97 L (98-107) mmol/L Carbon Dioxide 16 L (22-30) mmol/L BUN 57 H (9-20) mg/dL Creatinine 9.49 H* (0.66-1.25) mg/dL Glucose 169 H (74-99) mg/dL POC Glucose (mg/dL) 167 H 206 H (75-99) mg/dL Phosphorus 8.2 H (2.5-4.5) mg/dL Magnesium 2.5 H (1.6-2.3) mg/dL 09/22/20 09/22/20 Range/Units 07:38 11:40 WBC 17.7 H (3.8-10.6) k/uL RBC 4.20 L (4.30-5.90) m/uL Hgb 12.2 L (13.0-17.5) gm/dL MCHC 29.6 L (31.0-37.0) g/dL RDW 17.5 H (11.5-15.5) % Neutrophils # 15.5 H (1.3-7.7) k/uL Lymphocytes # 0.8 L (1.0-4.8) k/uL PT (9.0-12.0) sec INR (<1.2) Sodium (137-145) mmol/L Chloride (98-107) mmol/L Carbon Dioxide (22-30) mmol/L BUN (9-20) mg/dL Creatinine (0.66-1.25) mg/dL Glucose (74-99) mg/dL POC Glucose (mg/dL) 154 H (75-99) mg/dL Phosphorus (2.5-4.5) mg/dL Magnesium (1.6-2.3) mg/dL Microbiology - Last 24 Hours (Table) 09/15/20 13:23 Blood Culture - Final Blood No Growth after 144 hours 09/15/20 13:28 Blood Culture - Final Blood No Growth after 144 hours 09/20/20 03:05 Gram Stain - Preliminary Foot - Left Wound Culture - Preliminary Group D Enterococcus Assessment and Plan Plan: Assessment: 1. End-stage renal disease maintained on hemodialysis on Monday schedule via AV fistula. 2. Peripheral arterial disease. Status post bypass September 21. 3. Chronic kidney disease mineral bone disease maintained on PhosLo. 4. Diabetes mellitus. 5. Hyponatremia secondary to chronic kidney disease. Expect improvement postdialysis. 6. Metabolic acidosis secondary to chronic disease. Expect improvement postdialysis. Plan: Currently seen while undergoing hemodialysis. Next treatment on .
--- NOTE | 2020-09-22 13:18 | PN ---
PROGRESS NOTE DATE OF SERVICE: 09/22/2020 REASON FOR FOLLOWUP: Left third toe gangrene with underlying osteomyelitis. INTERVAL HISTORY: The patient is currently afebrile. Patient is breathing comfortably. Patient denies any chest pain, shortness of breath, abdominal pain. Did complain of pain to the left lower extremity in this patient who is status post left femoral-tibial artery bypass, left. PHYSICAL EXAMINATION: Blood pressure is 127/61 with a pulse of 66, temperature 97.6, 93% on room air. GENERAL DESCRIPTION: A middle-aged male lying in bed in no distress. RESPIRATORY SYSTEM: Unlabored breathing, clear to auscultation anteriorly. HEART: S1, S2. Regular rate and rhythm. ABDOMEN: Soft, no tenderness. EXTREMITIES: Left toe is currently dressed, no drainage on the dressing. LABS: Hemoglobin is 12.1, white count 17.7, BUN of 57, creatinine 9.49. Local culture showing group D Enterococcus. DIAGNOSTIC IMPRESSION AND PLAN: Patient with left third toe gangrene, status post amputation of 3rd toe with evidence of underlying osteomyelitis on the x-ray. Culture with Enterococcus. Patient is covered with Zosyn and Vanco with discharge antibiotic depending upon the culture report and monitor clinical course closely. MMODL / IJN: [id number] /
[2020-09-22 16:55] LABS: Glucose,Whole Blood 188 mg/dL (75-99)
[2020-09-22 20:18] LABS: Glucose,Whole Blood 148 mg/dL (75-99)
[2020-09-23 04:13] VITALS: TEMP 97.9
[2020-09-23 06:16] LABS: Glucose,Whole Blood 93 mg/dL (75-99)
[2020-09-23] MEDS: INSULIN ASPART (NovoLOG) 100 UNIT/ML VIAL SQ SCH ×3 (06:39→17:58)
[2020-09-23] MEDS: CALCIUM ACETATE 667 MG TAB PO SCH ×3 (06:41→18:00)
[2020-09-23 08:48] LABS: Albumin 3.2 g/dL (3.5-5.0); Calcium 9.9 mg/dL (8.4-10.2); Potassium 5.4 mmol/L (3.5-5.1); Total Protein 6.2 g/dL (6.3-8.2)
--- NOTE | 2020-09-23 08:54 | P.VSCSTY ---
Greater Saphenous Vein Mapping This is bilateral lower extremity greater saphenous vein mapping. Date of service: 09/18/2020 Vein quality and ultrasound appearance: We see no intraluminal thrombus or wall changes. No visible saphenous vein below the knee on the left. Vein size groin right : 7.1 x 7.9 groin left: 8.5 x 7.2 High thigh right: 6.1 x 5.0 high thigh left: 4.4 x 4.3 Mid thigh right: 4.2 x 4.4 mid thigh left: 2.5 x 2.3 Above-knee right: 3.7 x 3.6 above- knee left: 1.3 x 1.5 Below knee right: 4.3 x 3.1 below-knee left: Not seen Mid calf right: 3.7 x 2.8 mid calf left: Not seen Ankle right: 3.5 x 2.9 ankle left: Not seen Impression: Usable greater saphenous vein throughout on the right. Unlikely to have anything usable below mid thigh on the left. Clinical correlation rec ommended..
[2020-09-23] MEDS: ASPIRIN 81 MG PO SCH (09:00)
[2020-09-23] MEDS: CLOPIDOGREL 75 MG TAB PO SCH (09:00)
[2020-09-23] MEDS ORDERED: lisinopriL 5 MG TAB PO SCH (09:00)
[2020-09-23] MEDS: PREGABALIN 25 MG CAP PO SCH (09:00)
[2020-09-23] MEDS: PIPERACILLIN-TAZOBACTAM 3.375 GM in SODIUM CHLORIDE 0.9% 100 ML IVPB SCH (09:00)
[2020-09-23] MEDS: allopurinoL 100 MG TAB PO SCH (09:00)
[2020-09-23] MEDS: METOPROLOL SUCCINATE (ER) 25 MG TAB.ER.24H PO SCH (09:00)
[2020-09-23] MEDS: FLUoxetine HCL 20 MG CAP PO SCH (09:00)
[2020-09-23 09:05] VITALS: RESP 16
[2020-09-23 09:13] LABS: Vancomycin,Random 27.3 ug/mL
--- NOTE | 2020-09-23 10:13 | P.PN ---
Subjective This is a pleasant 65-year-old male past medical history significant for end-stage renal disease on hemodialysis, hypertension, dyslipidemia, coronary artery disease status post bypass grafting, ischemic cardiomyopathy, chronic systolic heart failure, valvular heart disease, peripheral vascular disease and chronic nicotine dependence. He follows in the office with Dr. Renteria. He underwent left femoraltibial artery bypass with CryoVein graft yesterday with Dr. Chou. He is seen and examined resting comfortably lying flat in bed undergoing hemodialysis. He has no symptoms of chest discomfort or shortness of breath. Telemetry tracings have been unremarkable. He is complaining only of pain at the left lower extremity. Blood pressure 96/56 heart rate 68 afebrile maintaining oxygen saturation on room air. Laboratory data reviewed, WBC 17.7, hemoglobin 12.2, platelets 186, sodium 134, potassium 5.0, creatinine 9.49 and magnesium 2.5. Currently maintained on aspirin 81 mg daily, Plavix 75 mg daily and Toprol 25 mg daily. 09/23/2020 Seen and examined resting comfortably laying flat in bed in no acute distress. Continues to have pain in the left lower extremity. No chest pain, shortness of breath, dizziness or palpitations. Blood pressure 130/59 heart rate 63 afebrile. Telemetry tracings reviewed, no arrhythmias noted. GENERAL: Well-appearing, well-nourished and in no acute distress. NECK: Supple without JVD or thyromegaly. LUNGS: Breath sounds clear to auscultation bilaterally. Respiration equal and unlabored. No wheezes, rales or rhonchi. HEART: Regular rate and rhythm with systolic ejection murmur at the base, no rubs or gallops. S1 and S2 heard. EXTREMITIES: Normal range of motion, no edema. Dressing in place to the left lower extremity. ASSESSMENT Peripheral vascular disease status post left femoral/tibial artery bypass Coronary artery disease status post bypass grafting Ischemic cardiomyopathy Chronic systolic heart failure, clinically euvolemic End-stage renal disease on hemodialysis Hypertension Dyslipidemia Valvular heart disease Chronic nicotine dependence PLAN He is hemodynamically stable undergoing dialysis. Initiate lisinopril 5 mg daily. Consider implantation of ICD with Dr. Renteria in the office. Ongoing post-operative care, we will follow along as needed. Nurse Practitioner note has been reviewed, I agree with a documented findings and plan of care. Patient was seen and examined. Objective - Vital Signs Vital signs: Vital Signs Temp 97.9 F 09/23/20 04:00 Pulse 65 09/23/20 08:00 Resp 16 09/23/20 08:00 BP 136/67 09/23/20 08:00 Pulse Ox 100 09/23/20 08:00 Intake & Output 09/22/20 09/23/20 09/23/20 18:59 06:59 18:59 Intake Total 480 Output Total 1500 Balance -1020 Weight 104 kg Intake: Oral 480 Output: Hemodialysis 1500 Other: Voiding Method Toilet Toilet # Voids 0 - Labs CBC & Chem 7: 09/22/20 07:38 09/23/20 07:05 Labs: Abnormal Lab Results - Last 24 Hours (Table) 09/22/20 09/22/20 09/22/20 Range/Units 11:40 16:42 20:17 Sodium (137-145) mmol/L Potassium (3.5-5.1) mmol/L Carbon Dioxide (22-30) mmol/L BUN (9-20) mg/dL Creatinine (0.66-1.25) mg/dL POC Glucose (mg/dL) 154 H 188 H 148 H (75-99) mg/dL Total Bilirubin (0.2-1.3) mg/dL AST (17-59) U/L ALT (4-49) U/L Alkaline Phosphatase (38-126) U/L Total Protein (6.3-8.2) g/dL Albumin (3.5-5.0) g/dL 09/23/20 Range/Units 07:05 Sodium 136 L (137-145) mmol/L Potassium 5.4 H (3.5-5.1) mmol/L Carbon Dioxide 18 L (22-30) mmol/L BUN 41 H (9-20) mg/dL Creatinine 8.04 H* (0.66-1.25) mg/dL POC Glucose (mg/dL) (75-99) mg/dL Total Bilirubin 2.0 H (0.2-1.3) mg/dL AST 436 H (17-59) U/L ALT 369 H (4-49) U/L Alkaline Phosphatase 344 H (38-126) U/L Total Protein 6.2 L (6.3-8.2) g/dL Albumin 3.2 L (3.5-5.0) g/dL Microbiology - Last 24 Hours (Table) 09/20/20 03:05 Gram Stain - Final Foot - Left Wound Culture - Final Enterococcus faecalis
--- NOTE | 2020-09-23 11:37 | P.PN ---
Subjective Progress Note Date: 09/23/20 Principal diagnosis: Gangrene third toe, peripheral arterial disease The patient was seen and examined lying in bed. He is status post left femoral- tibial artery bypass with CryoVein graft. He states pain is improved and his left lower extremity. He has not been up ambulating. His Prevena VAC is intact to the medial aspect of left thigh. He denies any fevers or chills, abdominal pain, nausea, vomiting, chest pain or shortness of breath. Objective - Vital Signs Vital signs: Vital Signs Temp 97.9 F 09/23/20 04:00 Pulse 63 09/23/20 04:00 Resp 17 09/23/20 04:00 BP 130/59 09/23/20 04:00 Pulse Ox 97 09/23/20 04:00 Intake & Output 09/22/20 09/23/20 09/23/20 18:59 06:59 18:59 Intake Total 480 Output Total 1500 Balance -1020 Weight 104 kg Intake: Oral 480 Output: Hemodialysis 1500 Other: Voiding Method Toilet Toilet # Voids 0 - Exam General appearance: The patient is alert, oriented, in no acute distress. HET: Head is normocephalic and atraumatic. Neck: Supple without lymphadenopathy. Trachea midline. Abdomen: Soft, nontender, nondistended. Extremities: Left foot dressing clean dry and intact. Left medial aspect of the thigh with Prevena dressing intact, multiphasic posterior tibialis Doppler signal, faint monophasic doppler signal of dorsalis pedis. Neurological: No focal deficits. Strength and sensation are grossly intact. - Labs CBC & Chem 7: 09/22/20 07:38 09/23/20 07:05 Labs: Abnormal Lab Results - Last 24 Hours (Table) 09/22/20 09/22/20 09/22/20 Range/Units 07:38 07:38 11:40 WBC 17.7 H (3.8-10.6) k/uL RBC 4.20 L (4.30-5.90) m/uL Hgb 12.2 L (13.0-17.5) gm/dL MCHC 29.6 L (31.0-37.0) g/dL RDW 17.5 H (11.5-15.5) % Neutrophils # 15.5 H (1.3-7.7) k/uL Lymphocytes # 0.8 L (1.0-4.8) k/uL Sodium 134 L (137-145) mmol/L Chloride 97 L (98-107) mmol/L Carbon Dioxide 16 L (22-30) mmol/L BUN 57 H (9-20) mg/dL Creatinine 9.49 H* (0.66-1.25) mg/dL Glucose 169 H (74-99) mg/dL POC Glucose (mg/dL) 154 H (75-99) mg/dL Phosphorus 8.2 H (2.5-4.5) mg/dL Magnesium 2.5 H (1.6-2.3) mg/dL 09/22/20 09/22/20 Range/Units 16:42 20:17 WBC (3.8-10.6) k/uL RBC (4.30-5.90) m/uL Hgb (13.0-17.5) gm/dL MCHC (31.0-37.0) g/dL RDW (11.5-15.5) % Neutrophils # (1.3-7.7) k/uL Lymphocytes # (1.0-4.8) k/uL Sodium (137-145) mmol/L Chloride (98-107) mmol/L Carbon Dioxide (22-30) mmol/L BUN (9-20) mg/dL Creatinine (0.66-1.25) mg/dL Glucose (74-99) mg/dL POC Glucose (mg/dL) 188 H 148 H (75-99) mg/dL Phosphorus (2.5-4.5) mg/dL Magnesium (1.6-2.3) mg/dL Microbiology - Last 24 Hours (Table) 09/20/20 03:05 Gram Stain - Final Foot - Left Wound Culture - Final Enterococcus faecalis Assessment and Plan Assessment: 1. Post op day #2 for left femoral-tibial artery bypass with CryoVein graft 2. Critical limb ischemia lower left extremity, left popliteal and tibial peroneal trunk occlusion 3. Postop left foot third toe amputation with debridement of great toe and fourth toe 4. Left foot third and fourth toe gangrene with possible osteomyelitis, left great toe wound 5. Peripheral arterial disease 6. History of coronary artery disease, status post CABG 7. Diabetes mellitus 8. End-stage renal disease on hemodialysis and status post kidney transplant 9. Hypertension 10. Hyperlipidemia 11. Obstructive sleep apnea on CPAP Plan: 1. Continue IV antibiotics per ID 2. Consistent carbohydrate diet 3. Daily wet-to-dry dressing with dakins solution to amputation and debridement site 4. Patient is status post left femoral-tibial artery bypass with CryoVein graft 5. Hemodialysis as scheduled per nephrology 6. Patient to have orthotic boot on left lower extremity with ambulating, heel only 7. Reconsult physical therapy to evaluate patient with orthotic boots and ambulation prior to discharge Patient may be discharged from a vascular surgical standpoint. Follow-up with Dr. Chou one week Thank you for this consultation, we will continue to follow The impression and plan of care has been dictated as directed. Dr. Macias I performed a history and examination of this patient, discussed the same with the dictator. I agree with the dictator's note ,documented as a scribe. Any additional findings or plans will be noted.
[2020-09-23 12:13] LABS: Glucose,Whole Blood 85 mg/dL (75-99)
[2020-09-23] MEDS ORDERED: SODIUM BICARBONATE TAB 650 MG TAB PO SCH (12:30)
--- NOTE | 2020-09-23 12:30 | P.PN ---
Subjective Patient is seen in follow-up for end-stage renal disease. He is maintained on hemodialysis on Monday schedule. Underwent lower extremity angiogram and bypass this admission. No chest pain or shortness of breath. Vital signs are stable. General: The patient appeared well nourished and normally developed. HEENT: Head exam is unremarkable. Neck is without jugular venous distension. LUNGS: Breath sounds decreased. HEART: Rate and Rhythm are regular. ABDOMEN: Soft, nontender. EXTREMITITES: No edema. No drainage noted. Objective - Vital Signs Vital signs: Vital Signs Temp 97.9 F 09/23/20 04:00 Pulse 65 09/23/20 08:00 Resp 16 09/23/20 08:00 BP 136/67 09/23/20 08:00 Pulse Ox 100 09/23/20 08:00 Intake & Output 09/22/20 09/23/20 09/23/20 18:59 06:59 18:59 Intake Total 480 Output Total 1500 Balance -1020 Weight 104 kg Intake: Oral 480 Output: Hemodialysis 1500 Other: Voiding Method Toilet Toilet Toilet # Voids 0 0 - Labs CBC & Chem 7: 09/22/20 07:38 09/23/20 07:05 Labs: Abnormal Lab Results - Last 24 Hours (Table) 09/22/20 09/22/20 09/23/20 Range/Units 16:42 20:17 07:05 Sodium 136 L (137-145) mmol/L Potassium 5.4 H (3.5-5.1) mmol/L Carbon Dioxide 18 L (22-30) mmol/L BUN 41 H (9-20) mg/dL Creatinine 8.04 H* (0.66-1.25) mg/dL POC Glucose (mg/dL) 188 H 148 H (75-99) mg/dL Total Bilirubin 2.0 H (0.2-1.3) mg/dL AST 436 H (17-59) U/L ALT 369 H (4-49) U/L Alkaline Phosphatase 344 H (38-126) U/L Total Protein 6.2 L (6.3-8.2) g/dL Albumin 3.2 L (3.5-5.0) g/dL Microbiology - Last 24 Hours (Table) 09/20/20 03:05 Gram Stain - Final Foot - Left Wound Culture - Final Enterococcus faecalis Assessment and Plan Plan: Assessment: 1. End-stage renal disease maintained on hemodialysis on Monday schedule via AV fistula. 2. Peripheral arterial disease. Status post bypass September 21. 3. Chronic kidney disease mineral bone disease maintained on PhosLo. 4. Diabetes mellitus. 5. Hyponatremia secondary to chronic kidney disease. Improved postdialysis. 6. Metabolic acidosis secondary to chronic disease. Plan: Hemodialysis tomorrow. Stop lisinopril due to hyperkalemia. Add oral bicarb. Renal diet.
--- NOTE | 2020-09-23 12:35 | PN ---
PROGRESS NOTE DATE OF SERVICE: 09/23/2020 REASON FOR FOLLOWUP: Left third toe osteomyelitis. INTERVAL HISTORY: The patient is currently afebrile, has been breathing comfortably. Denies having any chest pain, shortness of breath, cough, abdominal pain, or any worsening pain to the left foot. PHYSICAL EXAMINATION: Blood pressure is 136/67, pulse of 65, temperature 97.9. He is 100% on room air. General description: The patient is a middle-aged male lying in bed in no distress. Respiratory system: Unlabored breathing, clear to auscultation anteriorly. Heart S1, S2. Regular rate and rhythm. Abdomen soft, no tenderness. Left foot is currently dressed up. LABS: BUN of 41, creatinine is 8.04. Wound culture with Enterococcus faecalis, sensitive pathogen. Anaerobes cultures are pending. DIAGNOSTIC IMPRESSION AND PLAN: Patient with left third toe gangrene status post amputation. Did have no element of the other toes. Patient is dialysis dependent, will avoid PICC line and continue with vancomycin for 6 weeks. Local wound care per Surgery and monitor clinical course closely. MMODL / IJN: [id number] /
--- NOTE | 2020-09-23 13:58 | P.DS ---
Providers Date of admission: 09/15/20 17:01 Expected date of discharge: 09/23/20 Attending physician: Libia Mckeon DO Consults: 09/15/20 17:18 Consult Physician Stat Consulting Provider: Reyna Macias Consult Reason/Comments: necrotic right third phalange Do you want consulting provider notified?: Yes 09/15/20 17:38 Consult Physician Routine Consulting Provider: Shereen Juarez Consult Reason/Comments: esrd on hd Do you want consulting provider notified?: Yes 09/19/20 10:48 Consult Physician Routine Consulting Provider: Wilian Sagastume Consult Reason/Comments: Preoperative clearance Do you want consulting provider notified?: Yes 09/19/20 11:16 Consult Physician Routine Consulting Provider: Tino Larios Consult Reason/Comments: Osteomyelitis Do you want consulting provider notified?: Yes Primary care physician: Wilian Zhang MD Hospital Course: Patient is a 65-year-old male with a complex past medical history including diabetes mellitus currently diet controlled, end-stage renal disease on hemodialysis, GERD, hypertension, dyslipidemia who presented with 3 weeks of left third toe discoloration. He underwent sharp excisional debridement of the left second and third toe by Dr. Macias on 09/16. He underwent angiogram on 09/18 and will ultimately a femoral-posterior tibial bypass. Osteomyelitis and dry gangrene associated with diabetes, peripheral arterial disease, and end-stage renal disease -Status post amputation of the left third toe with debrided of the great toe and fourth toe -On Vanco with dialysis for 6 weeks as directed by Dr. Larios -Vascular surgery postoperative and wound care management recommendations Peripheral arterial disease -Postoperative day #2 status post left femoral-tibial bypass -On dual antiplatelet therapy with aspirin and Plavix End-stage renal disease on dialysis Monday//Monday, mineral bone disease, -Continue with dialysis as directed -Phoslo elevated liver enzyme -Exact etiology unclear may be attributed to episode of hypotension -Now trending down -Lipitor discontinued -recheck liver enzymes in the next 3 days DM 2 - A1C 8.2 in June -Started on glipizide 2.5 mg daily -Recheck A1c Hyponatremia, resolved Hypertension, controlled -Continue with Toprol Dyslipidemia -Statin on hold until liver enzymes improved Patient will be discharged to [facility] in a stable condition. He will follow-up with vascular surgery and infectious disease as directed. Patient Condition at Discharge: Fair Plan - Discharge Summary Discharge Rx Participant: No New Discharge Prescriptions: New glipiZIDE [Glucotrol XL] 2.5 mg PO DAILY #30 tab Aspirin 81 mg PO DAILY chew HYDROcodone/APAP 5-325MG [[place] 5-325] 1 each PO Q6HR PRN #12 tab PRN Reason: Pain Calcium Acetate [PhosLo] 1,334 mg PO TID-W/MEALS tab Clopidogrel [Plavix] 75 mg PO DAILY tab Sodium Bicarbonate Tab 650 mg PO BID tab Continue allopurinoL [Zyloprim] 100 mg PO DAILY Metoprolol Succinate [Toprol XL] 25 mg PO DAILY rOPINIRole HCL [Requip] 1 mg PO HS FLUoxetine HCL [PROzac] 20 mg PO DAILY Pregabalin [Lyrica] 25 mg PO DAILY #3 cap Discontinued Atorvastatin [Lipitor] 40 mg PO DAILY rOPINIRole HCL [Requip] 1 mg PO DAILY PRN PRN Reason: PRIOR TO HEMODIALYSIS Colchicine See Taper PO DIRECTED traMADol HCL 50 mg PO BID PRN PRN Reason: Pain Discharge Medication List allopurinoL [Zyloprim] 100 mg PO DAILY 05/16/16 [History] FLUoxetine HCL [PROzac] 20 mg PO DAILY 09/15/20 [History] Metoprolol Succinate [Toprol XL] 25 mg PO DAILY 09/15/20 [History] rOPINIRole HCL [Requip] 1 mg PO HS 09/15/20 [History] Aspirin 81 mg PO DAILY chew 09/23/20 [Rx] Calcium Acetate [PhosLo] 1,334 mg PO TID-W/MEALS tab 09/23/20 [Rx] Clopidogrel [Plavix] 75 mg PO DAILY tab 09/23/20 [Rx] HYDROcodone/APAP 5-325MG [[place] 5-325] 1 each PO Q6HR PRN #12 tab 09/23/20 [Rx] Pregabalin [Lyrica] 25 mg PO DAILY #3 cap 09/23/20 [Rx] Sodium Bicarbonate Tab 650 mg PO BID tab 09/23/20 [Rx] glipiZIDE [Glucotrol XL] 2.5 mg PO DAILY #30 tab 09/23/20 [Rx] Follow up Appointment(s)/Referral(s): Wilian Zhang MD [Primary Care Provider] - 1-2 days Martínez Chou DO [STAFF PHYSICIAN] - 1 Week [facility], [NON-STAFF] - José Miguel Renteria MD [STAFF PHYSICIAN] - 2 Weeks Activity/Diet/Wound Care/Special Instructions: Weekly CBC/BMP/CRP/ESR x 6 weeks - results to Dr. Larios (script for labs and Vanco in chart) Keep Prevena wound dressing applied for 5 more days Daily wet-to-dry with Dakin solution to amputation site Discharge Disposition: TRANSFER TO SNF/ECF
[2020-09-23 17:05] LABS: Glucose,Whole Blood 90 mg/dL (75-99)
[2020-09-23 18:01] VITALS: BP 137/56; PULSE 65
== END 2020-09-23 18:40 | DRG 252 ==
LOC: EC 14:58 → 4SSUR 17:01 → 3SCARD 09-18 14:09
PROVIDERS: ADMIT Internal Medicine; ATTEND Internal Medicine
PROC: 0JBR0ZZ Excision of Left Foot Subcutaneous Tissue and Fascia, Open Approach (ICD-10-PCS; 2020-09-16)
PROC: 0Y6U0Z0 Detachment at Left 3rd Toe, Complete, Open Approach (ICD-10-PCS; 2020-09-16)
PROC: 5A1D70Z Performance of Urinary Filtration, Intermittent, Less than 6 Hours Per Day (ICD-10-PCS; 2020-09-17)
PROC: B41D1ZZ Fluoroscopy of Aorta and Bilateral Lower Extremity Arteries using Low Osmolar Contrast (ICD-10-PCS; 2020-09-18 13:00)
PROC: B54BZZZ Ultrasonography of Right Lower Extremity Veins (ICD-10-PCS; 2020-09-18 13:00)
PROC: 041L0KN Bypass Left Femoral Artery to Posterior Tibial Artery with Nonautologous Tissue Substitute, Open Approach (ICD-10-PCS; principal; 2020-09-21 07:30)
DX: E11.52 Type 2 diabetes mellitus with diabetic peripheral angiopathy with gangrene (principal); N18.6 End stage renal disease; E87.1 Hypo-osmolality and hyponatremia; E87.2 Acidosis; M86.172 Other acute osteomyelitis, left ankle and foot; I13.2 Hypertensive heart and chronic kidney disease with heart failure and with stage 5 chronic kidney disease, or end stage renal disease; I50.22 Chronic systolic (congestive) heart failure; I70.262 Atherosclerosis of native arteries of extremities with gangrene, left leg; I70.263 Atherosclerosis of native arteries of extremities with gangrene, bilateral legs; L03.116 Cellulitis of left lower limb; Z94.0 Kidney transplant status; E11.69 Type 2 diabetes mellitus with other specified complication; E11.319 Type 2 diabetes mellitus with unspecified diabetic retinopathy without macular edema; E11.22 Type 2 diabetes mellitus with diabetic chronic kidney disease; E78.5 Hyperlipidemia, unspecified; F17.210 Nicotine dependence, cigarettes, uncomplicated; F32.9 Major depressive disorder, single episode, unspecified; G25.81 Restless legs syndrome; G47.33 Obstructive sleep apnea (adult) (pediatric); Z99.89 Dependence on other enabling machines and devices; B95.2 Enterococcus as the cause of diseases classified elsewhere; E83.9 Disorder of mineral metabolism, unspecified; D63.1 Anemia in chronic kidney disease; I25.10 Atherosclerotic heart disease of native coronary artery without angina pectoris; Z20.822 Contact with and (suspected) exposure to COVID-19; I25.2 Old myocardial infarction; I25.5 Ischemic cardiomyopathy; I35.0 Nonrheumatic aortic (valve) stenosis; I44.0 Atrioventricular block, first degree; K21.9 Gastro-esophageal reflux disease without esophagitis; L03.032 Cellulitis of left toe; M10.9 Gout, unspecified; N40.0 Benign prostatic hyperplasia without lower urinary tract symptoms; R94.5 Abnormal results of liver function studies; I45.10 Unspecified right bundle-branch block; Z99.2 Dependence on renal dialysis; Z79.02 Long term (current) use of antithrombotics/antiplatelets; Z79.4 Long term (current) use of insulin; Z79.82 Long term (current) use of aspirin; Z79.899 Other long term (current) drug therapy; Z82.49 Family history of ischemic heart disease and other diseases of the circulatory system; Z85.828 Personal history of other malignant neoplasm of skin; Z86.011 Personal history of benign neoplasm of the brain; Z95.1 Presence of aortocoronary bypass graft; Z98.890 Other specified postprocedural states
CPT/HCPCS: 36247; 36415; 75625; 75710; 76937; 80048; 80053; 80202; 83605; 83735; 84100; 85025; 85027; 85610; 85652; 85730; 86140; 86706; 86850; 86900; 86901; 87040; 87070; 87075; 87077; 87186; 87205; 87340; 87635; 87636; 88305; 88311; 90471; 90715; 90935; 93970; 96374; 99285

== ENCOUNTER 2020-10-13 15:06 | Emergency (ER) | payer MEDICARE, BC ==
[2020-10-13 15:28] VITALS: BP 107/58; PULSE 84; RESP 16; TEMP 97.6
[2020-10-14 14:11] LABS: Glucose,Whole Blood 71 mg/dL (75-99)
[2020-10-14 16:02] LABS: Glucose,Whole Blood 72 mg/dL (75-99)
[2020-10-14 16:36] LABS: Glucose,Whole Blood 59 mg/dL (75-99)
[2020-10-14 17:01] LABS: Glucose,Whole Blood 60 mg/dL (75-99)
[2020-10-14 17:04] LABS: Glucose,Whole Blood 69 mg/dL (75-99)
[2020-10-14 17:25] LABS: Glucose,Whole Blood 78 mg/dL (75-99)
[2020-10-14 18:24] LABS: Glucose,Whole Blood 102 mg/dL (75-99)
[2020-10-14 20:45] LABS: Glucose,Whole Blood 134 mg/dL (75-99)
== END 2020-10-13 17:23 ==
LOC: EC 15:06
DX: M79.606 Pain in leg, unspecified (principal)
CPT/HCPCS: 36415; 99499

== ENCOUNTER 2020-10-14 01:16 | Inpatient (IN) | payer MEDICARE, BC ==
--- NOTE | 2020-10-14 01:49 | ED ---
Lower Extremity Injury HPI - General Chief Complaint: Extremity Injury, Lower Stated Complaint: toe problem Time Seen by Provider: 10/14/20 01:25 Source: patient, EMS Mode of arrival: EMS - History of Present Illness Initial Comments: Patient is a 65-year-old male with multiple Pierce days including renal disease on dialysis, diabetes, hypertension, presenting to the emergency department via EMS from [facility] for admission secondary to left foot gangrene, osteomyelitis. Patient states he has been dealing with his left foot for the past 1-2 months. He is currently on vancomycin, he had a recent third toe amputation about 2 weeks ago he states. He does follow with Dr. Chou. The gangrene has spread and they sent him in for surgical consult, possible amputation of the left toes. Patient denies any fevers or chills, he states his pain has been controlled with pain medication, currently his pain is a 6/10. Denies any chest pain or shortness of breath, no nausea or vomiting. He has no further complaints at this time. Upon arrival to the ER his vitals are stable. - Related Data Home Medications Medication Instructions Recorded Confirmed allopurinoL [Zyloprim] 100 mg PO DAILY@0800 05/16/16 10/14/20 FLUoxetine HCL [PROzac] 20 mg PO DAILY@0800 09/15/20 10/14/20 Metoprolol Succinate [Toprol XL] 25 mg PO DAILY@0800 09/15/20 10/14/20 rOPINIRole HCL [Requip] 1 mg PO HS 09/15/20 10/14/20 Aspirin 81 mg PO DAILY@1700 10/14/20 10/14/20 Clopidogrel [Plavix] 75 mg PO DAILY@0800 10/14/20 10/14/20 Dakins (1/2 Strength) Soln 0.2 1 applic TOPICAL DAILY 10/14/20 10/14/20 HYDROcodone/APAP 5-325MG [[place] 1 tab PO Q6HR PRN 10/14/20 10/14/20 5-325] Levofloxacin [Levaquin] 500 mg PO DIRECTED 10/14/20 10/14/20 Liquacel 30 ml PO BID@1700,2100 10/14/20 10/14/20 Magnesium Hydroxide [Milk of 7,200 mg PO DAILY PRN 10/14/20 10/14/20 Magnesia Concentrate] Menthol-Zinc Oxide Oint 1 applic TOPICAL BID@0800,2100 10/14/20 10/14/20 [Calmoseptine Oint] Pregabalin [Lyrica] 25 mg PO DAILY@0800 10/14/20 10/14/20 Renal Tablet 1 tab PO HS@2100 10/14/20 10/14/20 Sevelamer [Renvela] 1,600 mg PO AC-TID@08,12,17 10/14/20 10/14/20 Sodium Bicarbonate Tab 650 mg PO BID@0800,1700 10/14/20 10/14/20 Vancomycin 1,000 mg IV TUTHSA 10/14/20 10/14/20 Vitamins A and D [Vitamin A and D] 1 applic TOPICAL DAILY 10/14/20 10/14/20 bisacodyL [Dulcolax] 10 mg RECTAL DAILY PRN 10/14/20 10/14/20 glipiZIDE [Glucotrol XL] 2.5 mg PO DAILY@0800 10/14/20 10/14/20 Allergies Allergy/AdvReac Type Severity Reaction Status Date / Time No Known Allergies Allergy Verified 10/14/20 07:11 Review of Systems ROS Statement: Those systems with pertinent positive or pertinent negative responses have been documented in the HPI. ROS Other: All systems not noted in ROS Statement are negative. 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 History of Any Multi-Drug Resistant Organisms: None Reported Past Surgical History: Coronary Bypass/CABG, Heart Catheterization, Orthopedic Surgery Additional Past Surgical History / Comment(s): Recent transplant biopsy, vein mapping last week at [facility] in preparation for new fistula, meningioma benign brain tumor removed at [facility], (rt) kidney transplant [address] [facility], 5 vessel cabg, colonoscopy-clear, lt knee arthroscopy, rt arm fistulas with R upper arm fistula removed, forehead skin cancer removal. lef ttoe amputation Past Anesthesia/Blood Transfusion Reactions: Motion Sickness Past Psychological History: No Psychological Hx Reported Smoking Status: Former smoker Past Alcohol Use History: None Reported Past Drug Use History: None Reported - Past Family History Father Family Medical History: Hypertension, Myocardial Infarction (MS), Renal Disease Additional Family Medical History / Comment(s): Pt states his father had received blood, had a reaction-a MS and at the age of 40yrs. Mother Family Medical History: Dementia Additional Family Medical History / Comment(s): Mother is 82 yrs old. Sister(s) Family Medical History: Hyperlipidemia, Renal Disease Additional Family Medical History / Comment(s): Sister is on hemodialysis. General Exam - General Exam Comments Initial Comments: GENERAL: Patient is well-developed and well-nourished. Patient is nontoxic and in no acute distress. HEAD: Atraumatic, normocephalic. EYES: Pupils equal round and reactive to light, extraocular movements intact, sclera a nicteric, conjunctiva are normal. Eyelids were unremarkable. ENT: TMs normal, nares patent, oropharynx clear without exudates. Moist mucous membranes. NECK: Normal range of motion, supple without lymphadenopathy or JVD. LUNGS: Unlabored respirations. Breath sounds clear to auscultation bilaterally and equal. No wheezes rales or rhonchi. HEART: Regular rate and rhythm with murmur. No rubs or gallops. ABDOMEN: Soft, nontender, normoactive bowel sounds. No guarding, no rebound. No masses appreciated. : Deferred MUSCULOSKELETAL: Patient has pain with palpation of the left distal foot, toes. He does have weakened dorsal pedis pulses bilaterally. Left third toe recent amputation. No clubbing or cyanosis. NEUROLOGICAL: Patient is alert and oriented x 3. Motor and sensory are also intact. Cranial nerves II through XII grossly intact. Symmetrical smile. Normal speech, normal gait. PSYCH: Normal mood, normal affect. SKIN: Warm, Dry, normal turgor, no rashes. Patient has dry gangrene on the left great toe, second toe, fourth toe. Recent amputation of third left toe, there is drainage present, erythema in the toes and spreading up left foot. Course Vital Signs 10/14/20 10/14/20 10/14/20 01:26 05:07 09:00 Temperature 98.2 F 98.1 F Pulse Rate 87 84 86 Pulse Rate [ Left] Respiratory 18 16 18 Rate Blood Pressure 113/67 125/75 118/68 Blood Pressure [Right Arm] O2 Sat by Pulse 95 96 98 Oximetry 10/14/20 10/14/20 11:53 12:11 Temperature 97.8 F 96.9 F L Pulse Rate 77 Pulse Rate [ 88 Left] Respiratory 18 16 Rate Blood Pressure 119/68 Blood Pressure 111/67 [Right Arm] O2 Sat by Pulse 98 95 Oximetry Medical Decision Making - Medical Decision Making Patient is a 65-year-old male with multiple comorbidities including renal disease, on dialysis, presenting via EMS from [facility] for admission for gangrene of his left toes. He has recent amputation of the third left toe. He is currently on vancomycin. Vital signs are stable, afebrile. Vancomycin trough was drawn yesterday and was 11.7. Normal white count today, hemoglobin is stable. Patient will be admitted with surgical consult to vascular. He is in agreement this plan of care. Patient accepted by Dr. Ambriz. Case discussed with Dr. Saavedra. - Lab Data Result diagrams: 10/14/20 02:09 10/14/20 02:09 Lab Results 10/14/20 10/14/20 10/14/20 Range/Units 02:09 02:09 02:09 WBC 7.4 (3.8-10.6) k/uL RBC 3.43 L (4.30-5.90) m/uL Hgb 10.4 L (13.0-17.5) gm/dL Hct 32.3 L (39.0-53.0) % MCV 94.3 (80.0-100.0) fL MCH 30.2 (25.0-35.0) pg MCHC 32.1 (31.0-37.0) g/dL RDW 18.2 H (11.5-15.5) % Plt Count 138 L (150-450) k/uL MPV 9.3 Neutrophils % 80 % Lymphocytes % 8 % Monocytes % 8 % Eosinophils % 2 % Basophils % 1 % Neutrophils # 5.9 (1.3-7.7) k/uL Lymphocytes # 0.6 L (1.0-4.8) k/uL Monocytes # 0.6 (0-1.0) k/uL Eosinophils # 0.2 (0-0.7) k/uL Basophils # 0.1 (0-0.2) k/uL Hypochromasia Moderate Anisocytosis Slight Macrocytosis Slight ESR 58 H (0-15) mm/hr PT 12.0 (9.0-12.0) sec INR 1.1 (<1.2) APTT 28.1 (22.0-30.0) sec Sodium 131 L (137-145) mmol/L Potassium 5.4 H (3.5-5.1) mmol/L Chloride 91 L (98-107) mmol/L Carbon Dioxide 34 H (22-30) mmol/L Anion Gap 6 mmol/L BUN 39 H (9-20) mg/dL Creatinine 4.32 H (0.66-1.25) mg/dL Est GFR (CKD-EPI)AfAm 16 (>60 ml/min/1.73 sqM) Est GFR (CKD-EPI)NonAf 14 (>60 ml/min/1.73 sqM) Glucose 87 (74-99) mg/dL Calcium 9.7 (8.4-10.2) mg/dL Total Bilirubin 1.3 (0.2-1.3) mg/dL AST 33 (17-59) U/L ALT 15 (4-49) U/L Alkaline Phosphatase 276 H (38-126) U/L C-Reactive Protein 15.9 H (<1.0) mg/dL Total Protein 6.1 L (6.3-8.2) g/dL Albumin 3.1 L (3.5-5.0) g/dL Coronavirus (PCR) (Not Detectd) 10/14/20 Range/Units 02:09 WBC (3.8-10.6) k/uL RBC (4.30-5.90) m/uL Hgb (13.0-17.5) gm/dL Hct (39.0-53.0) % MCV (80.0-100.0) fL MCH (25.0-35.0) pg MCHC (31.0-37.0) g/dL RDW (11.5-15.5) % Plt Count (150-450) k/uL MPV Neutrophils % % Lymphocytes % % Monocytes % % Eosinophils % % Basophils % % Neutrophils # (1.3-7.7) k/uL Lymphocytes # (1.0-4.8) k/uL Monocytes # (0-1.0) k/uL Eosinophils # (0-0.7) k/uL Basophils # (0-0.2) k/uL Hypochromasia Anisocytosis Macrocytosis ESR (0-15) mm/hr PT (9.0-12.0) sec INR (<1.2) APTT (22.0-30.0) sec Sodium (137-145) mmol/L Potassium (3.5-5.1) mmol/L Chloride (98-107) mmol/L Carbon Dioxide (22-30) mmol/L Anion Gap mmol/L BUN (9-20) mg/dL Creatinine (0.66-1.25) mg/dL Est GFR (CKD-EPI)AfAm (>60 ml/min/1.73 sqM) Est GFR (CKD-EPI)NonAf (>60 ml/min/1.73 sqM) Glucose (74-99) mg/dL Calcium (8.4-10.2) mg/dL Total Bilirubin (0.2-1.3) mg/dL AST (17-59) U/L ALT (4-49) U/L Alkaline Phosphatase (38-126) U/L C-Reactive Protein (<1.0) mg/dL Total Protein (6.3-8.2) g/dL Albumin (3.5-5.0) g/dL Coronavirus (PCR) Not Detected (Not Detectd) Disposition Clinical Impression: Necrotic toes, Cellulitis of left foot, Left foot pain Disposition: ADMITTED IP TO THIS [facility] Condition: Stable Is patient prescribed a controlled substance at d/c from ED?: No Decision Date: 10/14/20 Decision Time: 02:32
[2020-10-14] MEDS ORDERED: NALOXONE 0.4 MG/ML 1 ML VIAL IV PRN (02:14)
[2020-10-14] MEDS ORDERED: HYDROcodone/APAP 5-325MG 1 EACH TAB PO PRN (02:14)
[2020-10-14] MEDS ORDERED: ACETAMINOPHEN TAB 325 MG TAB PO PRN (02:14)
[2020-10-14] MEDS ORDERED: VANCOMYCIN IV PER PHARMACY 1 EACH MISC MISCELLANE STA (02:21)
[2020-10-14 02:25] LABS: HCT 32.3 % (39.0-53.0); HGB 10.4 gm/dL (13.0-17.5); MCV 94.3 fL (80.0-100.0); RBC 3.43 m/uL (4.30-5.90); WBC 7.4 k/uL (3.8-10.6)
[2020-10-14 02:26] LABS: Anisocytosis Slight; Basophils # (A) 0.1 k/uL (0-0.2); Basophils % (A) 1 %; Eosinophils # (A) 0.2 k/uL (0-0.7); Eosinophils % (A) 2 %; Hypochromasia Moderate; Lymphocytes # (A) 0.6 k/uL (1.0-4.8); Lymphocytes % (A) 8 %; MCH 30.2 pg (25.0-35.0); MCHC 32.1 g/dL (31.0-37.0); Macrocytosis Slight; Mean Platelet Volume 9.3; Monocytes # (A) 0.6 k/uL (0-1.0); Monocytes % (A) 8 %; Neutrophils # (A) 5.9 k/uL (1.3-7.7); Neutrophils % (A) 80 %; Platelet Count 138 k/uL (150-450); RDW 18.2 % (11.5-15.5)
[2020-10-14] MEDS ORDERED: VANCOMYCIN 1,500 MG in SODIUM CHLORIDE 0.9% 250 ML IVPB ONE (02:30)
[2020-10-14 02:41] LABS: INR 1.1 (<1.2); Partial Thromboplastin Time 28.1 sec (22.0-30.0)
--- NOTE | 2020-10-14 02:48 | XR ---
EXAM: XR Left Foot Complete, 3 or More Views CLINICAL HISTORY: ITS. REASON XR Reason: Osteomyelitis of the toes TECHNIQUE: Frontal, lateral and oblique views of the left foot. COMPARISON: 09/15/20. FINDINGS: There has been interval amputation of the left third toe. Increasing erosion/osteolysis of left second-fifth metatarsal head, concerning for progressive infection and osteomyelitis. Redemonstrated degeneration of the left first MTP joint. Posterior and plantar calcaneal spurs. Extensive atherosclerotic calcification. IMPRESSION: Interval amputation of the left third toe. Increasing osteolysis of left second-fifth metatarsal heads, concerning for progressive infection and osteomyelitis. MRI could further assess.
[2020-10-14 02:50] LABS: Albumin 3.1 g/dL (3.5-5.0); Calcium 9.7 mg/dL (8.4-10.2); Potassium 5.4 mmol/L (3.5-5.1); Total Bilirubin 1.3 mg/dL (0.2-1.3); Total Protein 6.1 g/dL (6.3-8.2)
[2020-10-14 03:00] LABS: C Reactive Protein 15.9 mg/dL (<1.0)
[2020-10-14 03:26] LABS: Erythrocyte Sedimentation Rate 58 mm/hr (0-15)
[2020-10-14] MEDS ORDERED: VANCOMYCIN IV PER PHARMACY 1 EACH MISC MISCELLANE PRN (04:29)
--- NOTE | 2020-10-14 06:03 | P.HPIM ---
History of Present Illness H&P Date: 10/14/20 Chief Complaint: left foot gangrene 65-year-old male with end stage renal disease on hemodialysis TTS, diabetes mellitus, hypertension Patient was sent from [facility] rehab for surgical evaluation concerning regarding foot gangrene. Patient is currently denies any new symptoms he denies any fevers or chills denies any chest pain or trouble breathing denies any nausea or vomiting. Left foot with only be painful if he tries to weight-bear. There is drainage from recent surgical wound in the left foot. Patient claims that he missed dialysis today. Patient history goes back for 2 months when he started noticing problems with his left foot, patient was evaluated in our hospital I can early September, and on 09/16/2020 he had amputation of the third left toe followed by angiogram of the left lower extremity resulted in arterial bypass of femoral to posterior tibial which he tolerated well then he was discharged to [facility] jail to continue 6 week course of IV vancomycin. Patient also continued on aspirin and Plavix Now he is presenting with worsening swelling and erythema of the left foot with out healing as his surgical site still draining an open. Patient followed up with his vascular surgeon in the office who recommended further amputation to his left lower extremity Review of Systems Pertinent positives as noted in HPI. 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 History of Any Multi-Drug Resistant Organisms: None Reported Past Surgical History: Coronary Bypass/CABG, Heart Catheterization, Orthopedic Surgery Additional Past Surgical History / Comment(s): Recent transplant biopsy, vein mapping last week at [facility] in preparation for new fistula, meningioma benign brain tumor removed at [facility], (rt) kidney transplant 2013 at [facility], 5 vessel cabg, colonoscopy-clear, lt knee arthroscopy, rt arm fistulas with R upper arm fistula removed, forehead skin cancer removal. lef ttoe amputation Past Anesthesia/Blood Transfusion Reactions: Motion Sickness Past Psychological History: No Psychological Hx Reported Smoking Status: Former smoker Past Alcohol Use History: None Reported Past Drug Use History: None Reported - Past Family History Father Family Medical History: Hypertension, Myocardial Infarction ([place]), Renal Disease Additional Family Medical History / Comment(s): Pt states his father had received blood, had a reaction-a [place] and at the age of 40yrs. Mother Family Medical History: Dementia Additional Family Medical History / Comment(s): Mother is 82 yrs old. Sister(s) Family Medical History: Hyperlipidemia, Renal Disease Additional Family Medical History / Comment(s): Sister is on hemodialysis. Medications and Allergies Home Medications Medication Instructions Recorded Confirmed Type allopurinoL [Zyloprim] 100 mg PO DAILY 05/16/16 09/15/20 History FLUoxetine HCL [PROzac] 20 mg PO DAILY 09/15/20 09/15/20 History Metoprolol Succinate [Toprol XL] 25 mg PO DAILY 09/15/20 09/15/20 History rOPINIRole HCL [Requip] 1 mg PO HS 09/15/20 09/15/20 History Aspirin 81 mg PO DAILY chew 09/23/20 Rx Calcium Acetate [PhosLo] 1,334 mg PO TID-W/MEALS tab 09/23/20 Rx Clopidogrel [Plavix] 75 mg PO DAILY tab 09/23/20 Rx HYDROcodone/APAP 5-325MG [[place] 1 each PO Q6HR PRN #12 tab 09/23/20 Rx 5-325] Pregabalin [Lyrica] 25 mg PO DAILY #3 cap 09/23/20 Rx Sodium Bicarbonate Tab 650 mg PO BID tab 09/23/20 Rx glipiZIDE [Glucotrol XL] 2.5 mg PO DAILY #30 tab 09/23/20 Rx Allergies Allergy/AdvReac Type Severity Reaction Status Date / Time No Known Allergies Allergy Verified 10/14/20 01:29 Physical Exam Vitals: Vital Signs Temp Pulse Resp BP Pulse Ox 10/14/20 01:26 98.2 F 87 18 113/67 95 Intake and Output 10/13/20 10/13/20 10/14/20 14:59 22:59 06:59 Other: Weight 90.718 kg Constitutional: No acute distress, conversant, pleasant Eyes: Anicteric sclerae, moist conjunctiva, Pupils equal round reactive to light ENMT: NC/AT Oropharynx clear, no erythema, or exudates Neck: Supple, FROM, no masses, or JVD No carotid bruits No thyromegaly Lungs: Clear to auscultation Clear to percussion Normal respiratory effort, no accessory muscle use Cardiovascular: Heart regular in rate and rhythm, No murmurs, gallops, or rubs No peripheral edema Abdominal: Soft Nontender, no guarding, rebound or rigidity Abdomen moving with respiration Normoactive bowel sounds No hepatomegaly, No splenomegaly No palpable mass No abdominal wall hernia noted Skin: Erythema and swelling over the left foot with blackish discoloration of the left big toe due to dry gangrene. With skin sloughing over the sole of the left foot and open surgical wound at the site of third left toe currently training serosanguineous fluid Extremities: No digital cyanosis No clubbing Pedal pulses weak and symmetrical Radial pulses intact and symmetrical No calf tenderness Palpable thrill over right arm AV fistula Psychiatric: Alert and oriented to person, place Appropriate affect fair judgement Neuro Muscles Strength 4/5 in all 4 extremities Decreased sensation over bilateral feet Cranial nerves II-XII grossly intact No focal sensory deficits Lymphatics: no palpable cervical or supraclavicular , or inguinal lymph nodes Results CBC & Chem 7: 10/14/20 02:09 10/14/20 02:09 Assessment and Plan Assessment: Osteomyelitis with suspected gangrene of the left foot Continue with vancomycin Follow-up cultures Surgical evaluation Pain control Peripheral arterial disease status post arterial bypass femoral to posterior tibial Continue with aspirin and Plavix Chronic conditions End-stage renal disease on hemodialysis TTS patient missed dialysis on Monday Nephrology consult Hypertension resume home medications Diabetes mellitus on insulin sliding scale Preformed a thorough record review from recent hospitalization where he was diagnosed with osteomyelitis of the left lower extremity status post amputation of the left first toe and femoral to posterior tibial arterial bypass CODE STATUS: Full code DVT prophylaxis: Heparin subcu 3 times a day Discussed with: Patient, ER Anticipated length of stay more than [address]: Subacute rehab A total of 75 minutes was spent on the care of this complex patient more than 50% of the time was spent in counseling and care coordination.
[2020-10-14 08:26] LABS: Glucose,Whole Blood 84 mg/dL (75-99)
[2020-10-14] MEDS: INSULIN ASPART (NovoLOG) 100 UNIT/ML VIAL SQ SCH ×4 (08:31→20:45)
[2020-10-14] MEDS: ASPIRIN 81 MG PO SCH (08:32)
[2020-10-14] MEDS: PREGABALIN 25 MG CAP PO SCH (08:32)
[2020-10-14] MEDS: METOPROLOL SUCCINATE (ER) 25 MG TAB.ER.24H PO SCH (08:33)
[2020-10-14] MEDS: CLOPIDOGREL 75 MG TAB PO SCH (08:33)
[2020-10-14] MEDS ORDERED: SODIUM CHLORIDE 0.9% 1,000 ML IV ONE (12:10)
[2020-10-14 12:27] LABS: Glucose,Whole Blood 63 mg/dL (75-99)
--- NOTE | 2020-10-14 12:48 | P.GSCN ---
History of Present Illness Consult date: 10/14/20 History of present illness: Yoshi is a 65-year-old male with a previous history of gangrene of his left third toe for wound or which he went an amputation on September 16. He subsequently had peripheral arterial disease and underwent a femoral to below knee posterior tibial bypass. He was discharged on IV antibiotics and was doing relatively well. He was seen in the office yesterday by Dr. Chou and recommended he come to the hospital for further surgical intervention, incision and drainage and possible amputation. At that time he wanted to go home and think about things rather than colitis hospital. He presented overnight for this and the plan is to go forward today with incision and drainage of his lower extremity with a likely TMA and possible wound VAC. Risks and benefits were discussed. He seemingly understands and is willing to proceed. 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 History of Any Multi-Drug Resistant Organisms: None Reported Past Surgical History: Coronary Bypass/CABG, Heart Catheterization, Orthopedic Surgery Additional Past Surgical History / Comment(s): Recent transplant biopsy, vein mapping last week at [facility] in preparation for new fistula, meningioma benign brain tumor removed at [facility], (rt) kidney transplant 2012 at [facility], 5 vessel cabg, colonoscopy-clear, lt knee arthroscopy, rt arm fistulas with R upper arm fistula removed, forehead skin cancer removal. lef ttoe amputation Past Anesthesia/Blood Transfusion Reactions: Motion Sickness Past Psychological History: No Psychological Hx Reported Smoking Status: Former smoker Past Alcohol Use History: None Reported Past Drug Use History: None Reported - Past Family History Father Family Medical History: Hypertension, Myocardial Infarction ([place]), Renal Disease Additional Family Medical History / Comment(s): Pt states his father had received blood, had a reaction-a [place] and at the age of 40yrs. Mother Family Medical History: Dementia Additional Family Medical History / Comment(s): Mother is 82 yrs old. Sister(s) Family Medical History: Hyperlipidemia, Renal Disease Additional Family Medical History / Comment(s): Sister is on hemodialysis. Medications and Allergies Home Medications Medication Instructions Recorded Confirmed Type allopurinoL [Zyloprim] 100 mg PO DAILY@0800 05/16/16 10/14/20 History FLUoxetine HCL [PROzac] 20 mg PO DAILY@0809/15/20 10/14/20 History Metoprolol Succinate [Toprol XL] 25 mg PO DAILY@79909/15/20 10/14/20 History rOPINIRole HCL [Requip] 1 mg PO HS 09/15/20 10/14/20 History Aspirin 81 mg PO DAILY@1700 10/14/20 10/14/20 History Clopidogrel [Plavix] 75 mg PO DAILY@79910/14/20 10/14/20 History Dakins (1/2 Strength) Soln 0.2 1 applic TOPICAL DAILY 10/14/20 10/14/20 History HYDROcodone/APAP 5-325MG [[place] 1 tab PO Q6HR PRN 10/14/20 10/14/20 History 5-325] Levofloxacin [Levaquin] 500 mg PO DIRECTED 10/14/20 10/14/20 History Liquacel 30 ml PO BID@1700,209910/14/20 10/14/20 History Magnesium Hydroxide [Milk of 7,200 mg PO DAILY PRN 10/14/20 10/14/20 History Magnesia Concentrate] Menthol-Zinc Oxide Oint 1 applic TOPICAL BID@0800,209910/14/20 10/14/20 History [Calmoseptine Oint] Pregabalin [Lyrica] 25 mg PO DAILY@79910/14/20 10/14/20 History Renal Tablet 1 tab PO HS@209910/14/20 10/14/20 History Sevelamer [Renvela] 1,600 mg PO AC-TID@08,12,17 10/14/20 10/14/20 History Sodium Bicarbonate Tab 650 mg PO BID@0800,1700 10/14/20 10/14/20 History Vancomycin 1,000 mg IV TUTHSA 10/14/20 10/14/20 History Vitamins A and D [Vitamin A and D] 1 applic TOPICAL DAILY 10/14/20 10/14/20 Hi story bisacodyL [Dulcolax] 10 mg RECTAL DAILY PRN 10/14/20 10/14/20 History glipiZIDE [Glucotrol XL] 2.5 mg PO DAILY@0800 10/14/20 10/14/20 History Allergies Allergy/AdvReac Type Severity Reaction Status Date / Time No Known Allergies Allergy Verified 10/14/20 07:11 Surgical - Exam Vital Signs Temp Pulse Resp BP Pulse Ox 98.2 F 87 18 113/67 95 10/14/20 01:26 10/14/20 01:26 10/14/20 01:26 10/14/20 01:26 10/14/20 01:26 Genitals a pleasant operative male in no acute distress. HEENT is nor mocephalic, atraumatic, etc. motion intact. Poor dentition. Heart regular. Lungs are clear bilaterally. Abdomen is soft. Left upper extremity fistula clean, dry, intact. Bilateral lower extremity are warm and dry. The left lower extremity bypass graft is palpable at the level of the ankle. He has significant erythema and drainage with areas necrosis of his first fourth and fifth toes. Normal mood and affect. Cranial nerves II through XII grossly intact Results - Labs 10/14/20 02:09 10/14/20 02:09 Abnormal Lab Results - Last 24 Hours (Table) 10/14/20 10/14/20 10/14/20 Range/Units 02:09 02:09 12:25 RBC 3.43 L (4.30-5.90) m/uL Hgb 10.4 L (13.0-17.5) gm/dL Hct 32.3 L (39.0-53.0) % RDW 18.2 H (11.5-15.5) % Plt Count 138 L (150-450) k/uL Lymphocytes # 0.6 L (1.0-4.8) k/uL ESR 58 H (0-15) mm/hr Sodium 131 L (137-145) mmol/L Potassium 5.4 H (3.5-5.1) mmol/L Chloride 91 L (98-107) mmol/L Carbon Dioxide 34 H (22-30) mmol/L BUN 39 H (9-20) mg/dL Creatinine 4.32 H (0.66-1.25) mg/dL POC Glucose (mg/dL) 63 L (75-99) mg/dL Alkaline Phosphatase 276 H (38-126) U/L C-Reactive Protein 15.9 H (<1.0) mg/dL Total Protein 6.1 L (6.3-8.2) g/dL Albumin 3.1 L (3.5-5.0) g/dL Diabetes panel 10/14/20 Range/Units 02:09 Sodium 131 L (137-145) mmol/L Potassium 5.4 H (3.5-5.1) mmol/L Chloride 91 L (98-107) mmol/L Carbon Dioxide 34 H (22-30) mmol/L BUN 39 H (9-20) mg/dL Creatinine 4.32 H (0.66-1.25) mg/dL Glucose 87 (74-99) mg/dL Calcium 9.7 (8.4-10.2) mg/dL AST 33 (17-59) U/L ALT 15 (4-49) U/L Alkaline Phosphatase 276 H (38-126) U/L Total Protein 6.1 L (6.3-8.2) g/dL Albumin 3.1 L (3.5-5.0) g/dL Calcium panel 10/14/20 Range/Units 02:09 Calcium 9.7 (8.4-10.2) mg/dL Albumin 3.1 L (3.5-5.0) g/dL Pituitary panel 10/14/20 Range/Units 02:09 Sodium 131 L (137-145) mmol/L Potassium 5.4 H (3.5-5.1) mmol/L Chloride 91 L (98-107) mmol/L Carbon Dioxide 34 H (22-30) mmol/L BUN 39 H (9-20) mg/dL Creatinine 4.32 H (0.66-1.25) mg/dL Glucose 87 (74-99) mg/dL Calcium 9.7 (8.4-10.2) mg/dL Adrenal panel 10/14/20 Range/Units 02:09 Sodium 131 L (137-145) mmol/L Potassium 5.4 H (3.5-5.1) mmol/L Chloride 91 L (98-107) mmol/L Carbon Dioxide 34 H (22-30) mmol/L BUN 39 H (9-20) mg/dL Creatinine 4.32 H (0.66-1.25) mg/dL Glucose 87 (74-99) mg/dL Calcium 9.7 (8.4-10.2) mg/dL Total Bilirubin 1.3 (0.2-1.3) mg/dL AST 33 (17-59) U/L ALT 15 (4-49) U/L Alkaline Phosphatase 276 H (38-126) U/L Total Protein 6.1 L (6.3-8.2) g/dL Albumin 3.1 L (3.5-5.0) g/dL Assessment and Plan Assessment: Left foot infection Gangrene Diabetes End-stage renal disease Peripheral arterial disease status post femoral to posterior tibial bypass Plan: Will plan for today with incision and drainage with likely TMA and possible wound VAC of his left lower extremity. Risks and benefits were discussed. He seemingly understands and is willing to proceed as such
[2020-10-14] MEDS ORDERED: SODIUM CHLORIDE 0.9% 500 ML 500 ML IV ONE (12:49)
[2020-10-14] MEDS ORDERED: PROPOFOL 10 MG/ML 20 ML VIAL IV ONE (12:49)
[2020-10-14] MEDS ORDERED: LIDOCAINE 1% INJ 10MG/ML (20 ML MDV) ONE (12:49)
[2020-10-14] MEDS ORDERED: MIDAZOLAM 2 MG/2 ML VIAL ONE (12:49)
[2020-10-14] MEDS ORDERED: NEOSTIGMINE 1 MG/ML 10 ML VIAL ONE (12:49)
[2020-10-14] MEDS ORDERED: ROCURONIUM 10 MG/ML (5 ML VIAL) IV ONE (12:49)
[2020-10-14] MEDS ORDERED: ONDANSETRON 4 MG/2 ML VIAL ONE (12:49)
[2020-10-14] MEDS ORDERED: PHENYLEPHRINE-0.9% NACL SYG 1,000 MCG/10 ML SYRINGE ONE (12:49)
[2020-10-14] MEDS ORDERED: fentaNYL (PF) 50 MCG/ML 2 ML AMP ONE (12:49)
[2020-10-14] MEDS ORDERED: GLYCOPYRROLATE 0.2 MG/ML 2 ML VIAL ONE (12:49)
--- NOTE | 2020-10-14 14:08 | P.OP ---
Date of Procedure: 10/14/20 Description of Procedure: Preoperative diagnosis: [left lower extrmity abscess, gangrene, peripheral a rterial disease] Postoperative diagnosis: Same Procedure: [left trans metatarsal amputation, partial closure with wound vac placement] Surgeon: Reyna Macias D.O. EBL: [75cc] IV fluids: [50cc] Urine output: []not measured Drains: [wound vac] Complications: [none immediately apparent] Condition: [Stable to recovery] Operative indication and findings: [Patient is a 65 year old male who presented to the ER with a worsened wound of his left lower extremity after having a third toe amputation for gangrene. He underwent a bypass previously and at this point presents for transmetatarsal amputation. Risks and benefits were discussed including the nonhealing possibility given the area of the abscess on the plantar portion of the foot and the significant amount of tissue affected. We did decide together that going forward with a transmetatarsal amputation and aggressive wound therapy would be the way he would prefer going rather than going forward with a below versus above-knee amputation.] Procedure in detail: []The patient was taken to the operative suite and placed in supine position. The left lower extremity was prepped and draped in usual sterile fashion. A preprocedure timeout was performed, all parties were in agreement. A decision was made over the metatarsals at the dorsal portion of the foot and leaving a posterior flap an incision was made at the plantar portion of the foot. This is carried down through the subcutaneous tissues to the level of the bone. The bone was then transected with an oscillating saw. The forefoot was then removed. The area of the abscess on the plantar portion the foot was identified and it was actually tunneling from the level of the third metatarsal. This was opened as well as the area of the fifth metatarsal again with the same problem. The area was then copiously irrigated. There was no further tracking or tunneling of purulent infected tissue. Hemostasis was achieved with electrocautery and Vicryl suture. At that point partial closure was performed using 3-0 Vicryl and 2-0 nylon at the medial portion. A wound VAC was utilized and the lateral portion given the abscess collection. The patient was allowed awaken from anesthesia and transferred to recovery in stable condition having tolerated procedure well.
--- NOTE | 2020-10-14 15:41 | P.PN ---
Subjective Progress Note Date: 10/14/20 Principal diagnosis: left foot pain Patient is a 65-year-old male with a history of end-stage renal disease status post kidney transplant but requiring recurrent dialysis on Monday//Monday, diabetes, GERD, dyslipidemia, and hypertension who [facility] foot gang[facility]. He was hospitalized here from 09/15 through 09/23 secondary to dry gangrene and osteomyelitis of the left third toe status post debridement and peripheral arterial disease status post left femoral arterial bypass grafting. His foot continued to worsen lot [facility] he therefore referred presented to the hospital. On arrival vital signs within normal limits, hemoglobin was at his baseline 10.4, sodium 131, potassium 5.4, CRP 15 (down from 17.5). He was started on vancomycin and was admitted for further monitoring. He was seen by vascular surgery, who recommended operative care of the gangrene and patient was taken to the OR on 10/14 and underwent transm etatarsal amputation with partial closer and wound VAC placement. Patient seen and examined at bedside. He reports having some pain in his left foot, he denies any nausea or vomiting, he reports feeling thirsty. Verified with daughter that he did undergo hemodialysis on 10/13 General: non toxic, no distress, appears at stated age Derm: warm, dry Head: atraumatic, normocephalic, symmetric Eyes: EOMI, no lid lag, anicteric sclera Mouth: no lip lesion, mucus membranes moist Cardiovascular: S1S2 reg, no murmur, Lungs: Decreased breath sounds bilateral, no rhonchi, no rales , no accessory muscle use Abdominal: soft, nontender to palpation, no guarding, no appreciable organomegaly Ext: no gross muscle atrophy, no edema, no contractures, wound VAC in place over left foot, status post transmetatarsal amputation Neuro: CN II-XI grossly intact, no focal neuro deficits Psych: Alert, oriented, appropriate affect Left foot dry gangrene status post left transmetatarsal amputation -Vascular surgery respirations appreciated, wound VAC -Previous cultures show enterococcus faecalis, continue vanco and anaerobic gram-negative bacilli Levaquin and -Consult infectious disease Peripheral arterial disease -Status post recent fem-pop bypass -Continue aspirin, Plavix End-stage renal disease on hemodialysis Monday//Monday, hyponatremia and hyperkalemia -Consult nephro -Continue with Renvela, sodium bicarb Diabetes mellitus type 2 with neuropathy -Sliding-scale insulin - A1c 7.8 -hold Glucotrol -Lyrica Hypertension, controlled -Controlled -Continue with Toprol Dyslipidemia -Not chronically on medications -Outpatient follow-up Anemia of end-stage renal disease - chronic and at baseline - follow CBC Chronic: SANA Benign brain tumor Short-term memory issues Gout DVT prophylaxis: Heparin Discussed with: patient, nursing, vascular surgery, caption writer Anticipated discharge: 3-[address]: return to [facility] A total of 35 minutes was spent on the care of this complex patient more than 50% of the time was spent in counseling and care coordination. Objective - Vital Signs Vital signs: Vital Signs Temp 98 F 10/14/20 14:02 Pulse 88 10/14/20 14:46 Resp 16 10/14/20 14:46 BP 118/57 10/14/20 14:46 Pulse Ox 100 10/14/20 14:46 Intake & Output 10/13/20 10/14/20 10/14/20 18:59 06:59 18:59 Intake Total 120 Output Total 75 Balance 45 Weight 90.718 kg Intake: IV 120 Output: Estimated Blood Loss 75 - Labs CBC & Chem 7: 10/14/20 02:09 10/14/20 02:09 Labs: Abnormal Lab Results - Last 24 Hours (Table) 10/14/20 10/14/20 10/14/20 Range/Units 02:09 02:09 12:25 RBC 3.43 L (4.30-5.90) m/uL Hgb 10.4 L (13.0-17.5) gm/dL Hct 32.3 L (39.0-53.0) % RDW 18.2 H (11.5-15.5) % Plt Count 138 L (150-450) k/uL Lymphocytes # 0.6 L (1.0-4.8) k/uL ESR 58 H (0-15) mm/hr Sodium 131 L (137-145) mmol/L Potassium 5.4 H (3.5-5.1) mmol/L Chloride 91 L (98-107) mmol/L Carbon Dioxide 34 H (22-30) mmol/L BUN 39 H (9-20) mg/dL Creatinine 4.32 H (0.66-1.25) mg/dL POC Glucose (mg/dL) 63 L (75-99) mg/dL Alkaline Phosphatase 276 H (38-126) U/L C-Reactive Protein 15.9 H (<1.0) mg/dL Total Protein 6.1 L (6.3-8.2) g/dL Albumin 3.1 L (3.5-5.0) g/dL
[2020-10-14] MEDS: ATORVASTATIN 80 MG TAB PO SCH (20:41)
[2020-10-15] MEDS: metroNIDAZOLE 500 MG TAB PO SCH ×4 (00:30→21:45)
[2020-10-15] MEDS ORDERED: VANCOMYCIN 1,500 MG in SODIUM CHLORIDE 0.9% 250 ML IVPB ONE (06:00)
[2020-10-15 07:22] LABS: Glucose,Whole Blood 118 mg/dL (75-99)
[2020-10-15] MEDS: INSULIN ASPART (NovoLOG) 100 UNIT/ML VIAL SQ SCH ×4 (07:26→21:28)
[2020-10-15] MEDS: PREGABALIN 25 MG CAP PO SCH (07:29)
[2020-10-15] MEDS: METOPROLOL SUCCINATE (ER) 25 MG TAB.ER.24H PO SCH (07:29)
[2020-10-15] MEDS: ASPIRIN 81 MG PO SCH (07:29)
[2020-10-15] MEDS: CLOPIDOGREL 75 MG TAB PO SCH (07:29)
[2020-10-15] MEDS: MIDODRINE 5 MG TAB PO PRN (08:32)
--- NOTE | 2020-10-15 08:49 | CONS ---
CONSULTATION DATE OF SERVICE: 10/14/2020 REASON FOR CONSULTATION: Left foot osteomyelitis. HISTORY OF PRESENT ILLNESS: The patient is a 65-year-old male with a past medical history significant for end-stage renal disease on hemodialysis. This patient was recently admitted to this facility. The patient did have a left third toe gangrene status post amputation and concern for underlying osteomyelitis. Culture positive for Enterococcus faecalis and anaerobes. In view of the patient being dialysis dependent and to avoid placing a PICC line, he was advised vancomycin through dialysis which the patient apparently was receiving at the care home. The patient was noticed to have worsening of his left foot and evidence of a gangrenous toe for which the patient has been admitted to the hospital. The patient is status post transmetatarsal amputation, positive culture of the wound and wound VAC placement. The patient was continued on vancomycin. Infectious Disease was consulted for further management of antibiotic therapy. Patient currently denies having any fever or any chills. The patient denies having any chest pain. No shortness of breath or cough. No nausea, vomiting, abdominal pain. Has been complaining of pain to the left foot area, more of a dull aching to throbbing, 6/10, no radiation. REVIEW OF SYSTEMS: Positive points have been mentioned in HPI. Rest of systems are negative. PAST MEDICAL HISTORY: End-stage renal disease on hemodialysis, coronary artery disease, diabetes mellitus, hypertension, hyperlipidemia, prostate disorder, sleep apnea. PAST SURGICAL HISTORY: Coronary artery bypass grafting, heart catheterization, biopsy, recent left third toe amputation and bypass grafting to the left leg. SOCIAL HISTORY: Remote history of smoking. No drinking or drug use. FAMILY HISTORY: Father with history of [place], hypertension and . Mother history of dementia. ALLERGIES: No known drug allergies. MEDICATIONS: The patient is currently on Tylenol, [place], aspirin, Lipitor, Plavix, NovoLog, Toprol- XL, vancomycin, Pharmacy to dose. Lyrica. PHYSICAL EXAMINATION: VITAL SIGNS: Blood pressure 132/63 with a pulse of 97, temperature 98, he is 97% on room air. GENERAL DESCRIPTION: Patient is a middle-aged male lying in bed in no distress. No tachypnea or accessory muscles of respiration use. HEENT: Examination shows slight pallor, no scleral icterus. Oral mucous membrane is dry. NECK: Trachea central, no thyromegaly. LUNGS: Unlabored breathing, clear to auscultation anteriorly. No wheeze or crackle. HEART: S1-S2, regular rate and rhythm. ABDOMEN: Soft, no tenderness. No guarding or rigidity. EXTREMITIES: Examination of the left foot shows it is currently covered with minimal swelling and redness. NEUROLOGICAL: Patient is awake, alert, oriented times three. Mood and affect normal. LABS: Hemoglobin is 10.4, white count 7.4, BUN of 39, creatinine 4.32. DIAGNOSTIC IMPRESSION: Patient with left foot osteomyelitis. The patient did have recent left third toe gangrene, status post amputation. The patient is status post transmetatarsal amputation with deep wound. Previous culture positive for Enterococcus and anaerobes. Cultures done this admission currently pending. Patient with left diabetic foot infection with underlying osteomyelitis, likely from a gram-positive skin leanna. Previous culture with Enterococcus faecalis and anaerobes. PLAN: 1. Patient is covered with vancomycin, to continue and we will add Flagyl. 2. We will wait for the culture from to manage discharge antibiotics. Thank you for this consultation. Will follow this patient along with you. MMODL / IJN: [id number] /
[2020-10-15 11:08] LABS: Anisocytosis Slight; HCT 32.9 % (39.0-53.0); HGB 10.2 gm/dL (13.0-17.5); Hypochromasia Marked; MCH 29.7 pg (25.0-35.0); MCHC 31.1 g/dL (31.0-37.0); MCV 95.5 fL (80.0-100.0); Macrocytosis Slight; Mean Platelet Volume 9.6; Platelet Count 158 k/uL (150-450); RBC 3.45 m/uL (4.30-5.90); RDW 18.2 % (11.5-15.5); WBC 10.8 k/uL (3.8-10.6)
--- NOTE | 2020-10-15 12:00 | P.PN ---
Subjective Progress Note Date: 10/15/20 Principal diagnosis: Left lower extremity abscess, gangrene Patient is seen and examined lying in bed. He is postop day #1 for left transmetatarsal amputation with wound VAC placement. He had no acute changes through the night. Deep tissue cultures were taken. Infectious diseases on consult he is currently on vancomycin and Flagyl. Afebrile, denies any pain. Objective - Vital Signs Vital signs: Vital Signs Temp 97.8 F 10/15/20 07:35 Pulse 92 10/15/20 07:35 Resp 16 10/15/20 08:00 BP 104/67 10/15/20 07:35 Pulse Ox 96 10/15/20 07:35 Intake & Output 10/14/20 10/15/20 10/15/20 18:59 06:59 18:59 Intake Total 120 200 Output Total 75 Balance 45 200 Weight 92.5 kg Intake: IV 120 Oral 200 Output: Estimated Blood Loss 75 Other: # Voids 0 - Exam General appearance: The patient is alert, oriented, in no acute distress. HET: Head is normocephalic and atraumatic. Neck: Supple without lymphadenopathy. Trachea midline. Heart: S1 S2. Regular rate and rhythm. Lungs: Clear to auscultation. Abdomen: Soft, nontender, nondistended. Extremities: Lower extremity without any edema, warmth to touch, with good capillary refill. Left lower extremity with TMA wound measuring 10 cm x 9 cm x 5 cm area wound VAC. Neurological: No focal deficits. Strength and sensation are grossly intact. - Labs CBC & Chem 7: 10/15/20 11:00 10/14/20 02:09 Labs: Abnormal Lab Results - Last 24 Hours (Table) 10/14/20 10/15/20 Range/Units 12:25 07:21 POC Glucose (mg/dL) 63 L 118 H (75-99) mg/dL Microbiology - Last 24 Hours (Table) 10/14/20 13:57 Gram Stain - Preliminary Foot - Left Wound Culture - Preliminary 10/14/20 13:57 Anaerobic Culture - Preliminary Foot - Left Assessment and Plan Assessment: 1. Postop day #1 for left transmetatarsal amputation with wound VAC placement 2. Left foot infection 3. Gangrene 4. Diabetes mellitus 5. End-stage renal disease on hemodialysis 6. Peripheral arterial disease status post femoral to posterior tibial bypass Plan: 1. Continue with wound VAC dressing, change every 3 days 2. Continue IV antibiotics recommended per infectious disease, awaiting deep tissue culture 3. Physical therapy on consult, nonweightbearing on the left lower extremity 4. Wound care consult per primary care medicine will need outpatient follow-up Thank you for this consultation, we will continue to follow The impression and plan of care has been dictated as directed. Dr. Macias I performed a history and examination of this patient, discussed the same with the dictator. I agree with the dictator's note ,documented as a scribe. Any additional findings or plans will be noted.
--- NOTE | 2020-10-15 13:58 | PN ---
PROGRESS NOTE DATE OF SERVICE: 10/15/2020 REASON FOR FOLLOWUP: Left foot gangrene and osteomyelitis. INTERVAL HISTORY: Patient is afebrile. The patient is breathing comfortably. Patient denies having any chest pain. No shortness of breath. No cough. No abdominal pain. Pain to the left foot is currently controlled. PHYSICAL EXAMINATION: Blood pressure 104/67, pulse of 92, temperature 97.8. He is 96% on room air. General description: The patient is a middle-aged male lying in in no distress. Respiratory system: Unlabored breathing, clear to auscultation anteriorly. Heart S1, S2. Regular rate and rhythm. ABDOMEN: Soft, no tenderness. Left foot is currently covered with wound VAC. LABS: No new labs have been obtained today and cultures are currently pending. DIAGNOSTIC IMPRESSION AND PLAN: Patient with left foot gangrene, status post transmetatarsal amputation. The patient is currently covered with vancomycin, Flagyl. Waiting for the culture to finalize and monitor clinical course closely. MMODL / IJN: [id number] /
[2020-10-15 15:39] VITALS: BMI 29.2
[2020-10-15] MEDS: HYDROcodone/APAP 5-325MG 1 EACH TAB PO PRN (16:49)
--- NOTE | 2020-10-15 17:16 | P.PN ---
Subjective Progress Note Date: 10/15/20 (delayed charting seen at 1015) Principal diagnosis: left foot pain Patient is a 65-year-old male with a history of end-stage renal disease status post kidney transplant but requiring recurrent dialysis on Monday//Monday, diabetes, GERD, dyslipidemia, and hypertension who [facility]. He was hospitalized here from 09/15 through 09/23 secondary to dry gangrene and osteomyelitis of the left third toe status post debridement and peripheral arterial disease status post left femoral arterial bypass grafting. His foot continued to worsen lot [facility] he therefore referred presented to the hospital. On arrival vital signs within normal limits, hemoglobin was at his baseline 10.4, sodium 131, potassium 5.4, CRP 15 (down from 17.5). He was started on vancomycin and was admitted for further monitoring. He was seen by vascular surgery, who recommended operative care of the gangrene and patient was taken to the OR on 10/14 and underwent transmetatarsal amputation with partial closer and wound VAC placement. He had some post-op hypoglycemia. Patient seen and examined at bedside. Pain well controlled, no nausea, no vomiting, no diarrhea. General: non toxic, no distress, appears at stated age Derm: warm, dry Head: atraumatic, normocephalic, symmetric Eyes: EOMI, no lid lag, anicteric sclera Mouth: no lip lesion, mucus membranes moist Cardiovascular: S1S2 reg, no murmur, Lungs: Decreased breath sounds bilateral, no rhonchi, no rales , no accessory muscle use Abdominal: soft, nontender to palpation, no guarding, no appreciable organomegaly Ext: no gross muscle atrophy, no edema, no contractures, wound VAC in place over left foot Neuro: CN II-XI grossly intact, no focal neuro deficits Psych: Alert, oriented, appropriate affect Left foot dry gangrene status post left transmetatarsal amputation -Vascular surgery recs appreciated, wound VAC -Previous cultures show enterococcus faecalis, continue vanco and anaerobic gram-negative bacilli flagyl -Infectious disease recs Peripheral arterial disease -Status post recent fem-pop bypass -Continue aspirin, Plavix End-stage renal disease on hemodialysis Monday//Monday, hyponatremia and hyperkalemia -Consult nephro -Continue with Renvela, sodium bicarb Diabetes mellitus type 2 with neuropathy, hypoglycemia -Sliding-scale insulin - A1c 7.8 -hold Glucotrol -Lyrica Hypertension, controlled -Controlled -Continue with Toprol Dyslipidemia -Not chronically on medications -Outpatient follow-up Anemia of end-stage renal disease - chronic and at baseline - follow CBC Chronic: SANA Benign brain tumor Short-term memory issues Gout DVT prophylaxis: Heparin Discussed with: patient, nursing, vascular surgery Anticipated discharge: 3-[address]: return to [facility] A total of 35 minutes was spent on the care of this complex patient more than 50% of the time was spent in counseling and care coordination. Objective - Vital Signs Vital signs: Vital Signs Temp 98.1 F 10/15/20 14:00 Pulse 79 10/15/20 14:00 Resp 18 10/15/20 14:00 BP 97/63 10/15/20 14:00 Pulse Ox 95 10/15/20 14:00 Intake & Output 10/14/20 10/15/20 10/15/20 18:59 06:59 18:59 Intake Total 120 200 Output Total 75 2000 Balance 45 200 -2000 Weight 92.5 kg 92.5 kg Intake: IV 120 Oral 200 Output: Hemodialysis 2000 Estimated Blood Loss 75 Other: # Voids 0 - Labs CBC & Chem 7: 10/15/20 11:00 10/14/20 02:09 Labs: Abnormal Lab Results - Last 24 Hours (Table) 10/15/20 10/15/20 Range/Units 07:21 11:00 WBC 10.8 H (3.8-10.6) k/uL RBC 3.45 L (4.30-5.90) m/uL Hgb 10.2 L (13.0-17.5) gm/dL Hct 32.9 L (39.0-53.0) % RDW 18.2 H (11.5-15.5) % POC Glucose (mg/dL) 118 H (75-99) mg/dL Microbiology - Last 24 Hours (Table) 10/14/20 13:57 Gram Stain - Preliminary Foot - Left Wound Culture - Preliminary 10/14/20 13:57 Anaerobic Culture - Preliminary Foot - Left
--- NOTE | 2020-10-15 20:07 | CONS ---
CONSULTATION REASON FOR CONSULT: End-stage renal disease. HISTORY OF PRESENT ILLNESS: The patient is a 65-year-old male with end-stage renal disease, on hemodialysis on a Monday, , Monday schedule. He was admitted to the hospital for amputation of toes on his left foot for gangrene. The patient has severe peripheral vascular disease and he did undergo a femoral to below-knee posterior tibial bypass. The patient has been on IV antibiotics prior to admission. Patient denies any significant symptoms of nausea, vomiting, abdominal pain, chest pains or shortness of breath. He has some pain at the site of surgery. Patient had left transmetatarsal amputation with closure with partial closure and wound VAC placement done on 10/14/2020. PAST MEDICAL HISTORY: End-stage renal disease, anemia of chronic disease, CKD mineral bone disorder, secondary/tertiary hyperparathyroidism, coronary artery disease, CHF, type 2 diabetes, neuropathy, gastroesophageal reflux disease, BPH, peripheral vascular disease, history of failed renal transplant. PAST SURGICAL HISTORY: Coronary artery bypass surgery, cardiac catheterization, kidney transplant, AV fistula, skin cancer removal, left toe amputation, left knee arthroscopy. SOCIAL HISTORY: Patient is a former smoker. No history of drug abuse or alcohol abuse. MEDICATIONS: Medications prior to admission included zyloprim, Prozac, Toprol, Requip, PhosLo, aspirin, Plavix, Lyrica, sodium bicarb, Glucotrol. ALLERGIES: None. PHYSICAL EXAMINATION: Patient is comfortable, awake, alert, oriented x3, not in any acute distress. The patient is seen on dialysis, tolerating his treatment well. Blood pressure 104/67, heart rate 92 per minute, he is afebrile. Examination of the heart S1, S2. Examination of the lungs, decreased breath sounds at the bases. Abdomen is soft, nontender. Examination of lower extremities shows no significant edema, right lower extremity. Left forefoot is currently wrapped. WASTE DUSTER exam grossly intact. LAB: Show hemoglobin 10.2 on 10/15/2020, potassium was 5.4 on 10/14/2020. ASSESSMENT: 1. End-stage renal disease, on hemodialysis on a Monday, , Monday schedule. 2. Severe peripheral vascular disease with left toe gangrene status post toe amputation with further transmetatarsal amputation done on 10/14/2020 with wound VAC placement and partial closure. 3. Chronic kidney disease mineral bone disorder. 4. Type 2 diabetes. 5. History of coronary artery disease status post coronary artery bypass surgery. PLAN: Continue with antibiotics hemodialysis on a Monday, , Monday schedule. MMODL / IJN: [id number] /
[2020-10-15 20:25] LABS: Glucose,Whole Blood 112 mg/dL (75-99)
[2020-10-15] MEDS: ATORVASTATIN 80 MG TAB PO SCH (21:45)
[2020-10-16] MEDS: INSULIN ASPART (NovoLOG) 100 UNIT/ML VIAL SQ SCH ×4 (08:07→21:19)
[2020-10-16] MEDS: CLOPIDOGREL 75 MG TAB PO SCH (08:12)
[2020-10-16] MEDS: METOPROLOL SUCCINATE (ER) 25 MG TAB.ER.24H PO SCH (08:12)
[2020-10-16] MEDS: ASPIRIN 81 MG PO SCH (08:12)
[2020-10-16] MEDS: PREGABALIN 25 MG CAP PO SCH (08:12)
[2020-10-16] MEDS: metroNIDAZOLE 500 MG TAB PO SCH ×3 (08:12→21:18)
[2020-10-16 08:18] LABS: African American GFR (CKD) 13 (>60 ml/min/1.73 sqM); Anion Gap 9 mmol/L; Blood Urea Nitrogen 38 mg/dL (9-20); Calcium 9.8 mg/dL (8.4-10.2); Carbon Dioxide 27 mmol/L (22-30); Chloride 99 mmol/L (98-107); Glucose 83 mg/dL (74-99); Non-African American GFR(CKD) 11 (>60 ml/min/1.73 sqM); Potassium 5.5 mmol/L (3.5-5.1); Sodium 135 mmol/L (137-145)
--- NOTE | 2020-10-16 08:53 | CDI ---
Documentation Clarification Form Date: 10/16/2020 08:33:13 AM From: Kerri Anna RN, CCDS Admit Date: 10/14/2020 02:24:00 AM Patient Name: Yoshi Rodrigues Visit Number: [id number] Discharge Date: ATTENTION: The Clinical Documentation Specialists (CDI) and [facility] Coding Staff appreciate your assistance in clarifying documentation. Please respond to the clarification below the line at the bottom and electronically sign. The CDI & [facility] Coding staff will review the response and follow-up if needed. Please note: Queries are made part of the Legal Health Record. If you have any questions, please contact the author of this message via ITS. Dr. Libia Mckeon Osteomyelitis is documented in the H/P on 10/14/20 and ID consult and subsequent progress notes. Additional clarification regarding the cause and acuity of the osteomyelitis is requested. History/Risk Factors: End-stage renal disease, GERD, Hypertension, Coronary Artery Disease, Diabetes mellitus, Peripheral arterial disease Clinical Indicators: 65-year old male who present to ED on 10/14 from rehab concerning left foot gangrene. He present with worsening swelling and erythema of the left foot without healing as his surgical site (third toe amputation on 09/16/20) still draining an open. H/P assessment has osteomyelitis with suspected gangrene of the left foot. 10/14 Labs: WBC 7.4, HGB 10.4, HCT 32.3, NA+ 131, BUN 39, CR 4.32; CRP 15.9 10/14 Left foot x-ray: Interval amputation of the left third toe. Increasing osteolysis of left second-fifth metatarsal heads, concerning for progressive infection and osteomyelitis 10/14 Wound culture, Gram stain, anaerobic culture pending 10/14 ID Progress notes: Left foot osteomyelitis. Culture positive for Enterococcus faccalis and anaerobes. Patient with left diabetic foot infection with underlying osteomyelitis, likely from a gram-positive skin leanna. Treatment: Vancomycin 1,500 MG IVPB Once (Pharmacy to Dose IV Vancomycin) Flagyl 500 MG PO TID 10/14 Transmetatarsal amputation of left foot with partial closer and wound VAC placement Please clarify the acuity and etiology of the osteomyelitis, if known: Acuity: [ ] Acute osteomyelitis with left diabetic foot infection and peripheral arterial disease [ ] Chronic osteomyelitis, with left diabetic foot infection and peripheral arterial disease [ x] Subacute osteomyelitis. With left diabetic foot infection and peripheral arterial disease [ ] Other, specify [ ] Unable to Determine (Template Last Revised: July 2020) [ x] Subacute osteomyelitis. With left diabetic foot infection and peripheral arterial disease MTDD
--- NOTE | 2020-10-16 09:45 | P.PN ---
Subjective Progress Note Date: 10/16/20 Principal diagnosis: left foot pain Patient is a 65-year-old male with a history of end-stage renal disease status post kidney transplant but requiring recurrent dialysis on Monday//Monday, diabetes, GERD, dyslipidemia, and hypertension who [facility] foot [facility]. He was hospitalized here from 09/15 through 09/23 secondary to dry gangrene and osteomyelitis of the left third toe status post debridement and peripheral arterial disease status post left femoral arterial bypass grafting. His foot continued to worsen lot [facility] he therefore referred presented to the hospital. On arrival vital signs within normal limits, hemoglobin was at his baseline 10.4, sodium 131, potassium 5.4, CRP 15 (down from 17.5). He was started on vancomycin and was admitted for further monitoring. He was seen by vascular surgery, who recommended operative care of the gangrene and patient was taken to the OR on 10/14 and underwent transm etatarsal amputation with partial closer and wound VAC placement. He had some post-op hypoglycemia, which resolved with eating. Patient seen and examined at bedside. + shortness of breath, + foot pain controlled with medications, + one episode of loose stools, does not make urine. General: non toxic, no distress, appears at stated age Derm: warm, dry Head: atraumatic, normocephalic, symmetric Eyes: EOMI, no lid lag, anicteric sclera Mouth: no lip lesion, mucus membranes dry Cardiovascular: S1S2 reg, no murmur, Lungs: Decreased breath sounds bilateral, no rhonchi, no rales , no accessory muscle use Abdominal: soft, nontender to palpation, no guarding, no appreciable organomegaly Ext: no gross muscle atrophy, no edema, no contractures, wound VAC in place over left foot Neuro: CN II-XI grossly intact, no focal neuro deficits Psych: Alert, oriented, appropriate affect Left foot dry gangrene, subacute osteomyelitis, status post left transmetatarsal amputation with wound vac placement -Vascular surgery recs appreciated, wound VAC -Previous cultures show enterococcus faecalis, continue vanco and anaerobic gram-negative bacilli flagyl, repeat cultures pending -wound care recs -Infectious disease recs Peripheral arterial disease -Status post recent fem-pop bypass -Continue aspirin, Plavix End-stage renal disease on hemodialysis Monday//Monday, hyponatremia and hyperkalemia -Consult nephro -Continue with Renvela, sodium bicarb Diabetes mellitus type 2 with neuropathy, hypoglycemia -Sliding-scale insulin - A1c 7.8 -hold Glucotrol -Lyrica Hypertension, controlled -Controlled -Continue with Toprol Dyslipidemia -Not chronically on medications -Outpatient follow-up Anemia of end-stage renal disease - chronic and at baseline - follow CBC Chronic: SANA Benign brain tumor Short-term memory issues Gout DVT prophylaxis: Heparin Discussed with: patient, nursing, vascular surgery Anticipated discharge: 3-[address]: return to [facility] A total of 35 minutes was spent on the care of this complex patient more than 50% of the time was spent in counseling and care coordination. Objective - Vital Signs Vital signs: Vital Signs Temp 98.1 F 10/16/20 08:00 Pulse 77 10/16/20 08:00 Resp 18 10/16/20 08:00 BP 111/71 10/16/20 08:00 Pulse Ox 96 10/16/20 08:00 Intake & Output 10/15/20 10/16/20 10/16/20 18:59 06:59 18:59 Output Total 1999 0 Balance -1999 0 Weight 92.5 kg Output: Urine 0 Hemodialysis 1999 Other: # Voids 0 - Labs CBC & Chem 7: 10/15/20 11:00 10/16/20 06:54 Labs: Abnormal Lab Results - Last 24 Hours (Table) 10/15/20 10/15/20 10/16/20 Range/Units 11:00 20:23 06:54 WBC 10.8 H (3.8-10.6) k/uL RBC 3.45 L (4.30-5.90) m/uL Hgb 10.2 L (13.0-17.5) gm/dL Hct 32.9 L (39.0-53.0) % RDW 18.2 H (11.5-15.5) % Sodium 135 L (137-145) mmol/L Potassium 5.5 H (3.5-5.1) mmol/L BUN 38 H (9-20) mg/dL Creatinine 5.07 H (0.66-1.25) mg/dL POC Glucose (mg/dL) 112 H (75-99) mg/dL Microbiology - Last 24 Hours (Table) 10/14/20 13:57 Gram Stain - Preliminary Foot - Left Wound Culture - Preliminary
--- NOTE | 2020-10-16 10:23 | P.CONS ---
History of Present Illness - Reason for Consult Consult date: 10/16/20 Wound care - History of Present Illness This is a 65-year-old patient known to the wound care center being seen on 4 S. for a nonhealing ulceration to the left transmetatarsal. Patient underwent a transmetatarsal indentation due to gangrene and osteomyelitis. Patient currently has a negative pressure wound VAC to the amputation site. The site was left open after surgery to assist with wound healing. Patient also has 2 small ulcerations to the posterior calcaneus. The ulcerations have a eschar In place. They are unstageable. Patient's past medical history significant for coronary artery disease, chest pain, heart failure, diabetes, dialysis, GERD, hyperlipidemia, hypertension, BPH, sleep apnea, patient receives dialysis on Monday. Review Of Systems: Constitutional: No fever, no chills, no night sweats. No weight change. No weakness, fatigue or lethargy. No daytime sleepiness. Integumentary:reports wounds, no lesions. No rash or pruritus. No unusual bruising. No change in hair or nails. Physical exam: General Appearance: Alert, cooperative, no distress, appears stated age. Skin: See HPI all other Skin color, texture, tugor normal, no rashes or lesions. Neurologic: Alert oriented x3 Assessment: 1. Nonhealing ulceration of left foot with a bone necrosis 2. Unstageable pressure ulcer to the left calcaneus 3. Diabetic foot ulcer 4. Osteo myelitis Plan: 1. Left amputation site: Negative pressure wound VAC with black foam and 125 mmHg continuous pressure. Change Monday. 2. Left calcaneus: Apply Santyl, saline moistened gauze, dry gauze, rolled g auze secured with paper tape change daily. Patient will be set up in the wound care center for continuing wound treatment once the patient is discharged from the hospital. Please call the wound care center prior to discharge to make an appointment. Thank you for the consultation any questions please contact the wound care center DNP note has been reviewed and discussed with Dr. Fuentes and the impression and plan of care has been directed as dictated. 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 History of Any Multi-Drug Resistant Organisms: None Reported Past Surgical History: Coronary Bypass/CABG, Heart Catheterization, Orthopedic Surgery Additional Past Surgical History / Comment(s): Recent transplant biopsy, vein mapping last week at [facility] in preparation for new fistula, meningioma benign brain tumor removed at [facility], (rt) kidney transplant 2012 at [facility], 5 vessel cabg, colonoscopy-clear, lt knee arthroscopy, rt arm fistulas with R upper arm fistula removed, forehead skin cancer removal. lef ttoe amputation Past Anesthesia/Blood Transfusion Reactions: Motion Sickness Past Psychological History: No Psychological Hx Reported Smoking Status: Former smoker Past Alcohol Use History: None Reported Past Drug Use History: None Reported - Past Family History Father Family Medical History: Hypertension, Myocardial Infarction (GA), Renal Disease Additional Family Medical History / Comment(s): Pt states his father had received blood, had a reaction-a GA and at the age of 40yrs. Mother Family Medical History: Dementia Additional Family Medical History / Comment(s): Mother is 82 yrs old. Sister(s) Family Medical History: Hyperlipidemia, Renal Disease Additional Family Medical History / Comment(s): Sister is on hemodialysis. Medications and Allergies Home Medications Medication Instructions Recorded Confirmed Type allopurinoL [Zyloprim] 100 mg PO DAILY@0800 05/16/16 10/14/20 History FLUoxetine HCL [PROzac] 20 mg PO DAILY@0800 09/15/20 10/14/20 History Metoprolol Succinate [Toprol XL] 25 mg PO DAILY@0800 09/15/20 10/14/20 History rOPINIRole HCL [Requip] 1 mg PO HS 09/15/20 10/14/20 History Aspirin 81 mg PO DAILY@1700 06/02/21 06/02/21 History Clopidogrel [Plavix] 75 mg PO DAILY@0800 10/14/20 10/14/20 History Dakins (1/2 Strength) Soln 0.2 1 applic TOPICAL DAILY 10/14/20 10/14/20 History HYDROcodone/APAP 5-325MG [[place] 1 tab PO Q6HR PRN 10/14/20 10/14/20 History 5-325] Levofloxacin [Levaquin] 500 mg PO DIRECTED 10/14/20 10/14/20 History Liquacel 30 ml PO BID@1700,2100 10/14/20 10/14/20 History Magnesium Hydroxide [Milk of 7,200 mg PO DAILY PRN 10/14/20 10/14/20 History Magnesia Concentrate] Menthol-Zinc Oxide Oint 1 applic TOPICAL BID@0800,2100 10/14/20 10/14/20 History [Calmoseptine Oint] Pregabalin [Lyrica] 25 mg PO DAILY@0800 10/14/20 10/14/20 History Renal Tablet 1 tab PO HS@209910/14/20 10/14/20 History Sevelamer [Renvela] 1,600 mg PO AC-TID@08,12,17 10/14/20 10/14/20 History Sodium Bicarbonate Tab 650 mg PO BID@0800,1700 10/14/20 10/14/20 History Vancomycin 1,000 mg IV TUTHSA 10/14/20 10/14/20 History Vitamins A and D [Vitamin A and D] 1 applic TOPICAL DAILY 10/14/20 10/14/20 History bisacodyL [Dulcolax] 10 mg RECTAL DAILY PRN 10/14/20 10/14/20 History glipiZIDE [Glucotrol XL] 2.5 mg PO DAILY@0800 10/14/20 10/14/20 History Allergies Allergy/AdvReac Type Severity Reaction Status Date / Time No Known Allergies Allergy Verified 10/14/20 07:11 Physical Exam Vitals: Vital Signs Temp Pulse Resp BP Pulse Ox 10/16/20 08:00 98.1 F 77 18 111/71 96 10/16/20 02:36 98.6 F 65 18 110/63 94 L 10/15/20 19:23 98.3 F 73 17 95/42 93 L 10/15/20 14:00 98.1 F 79 18 97/63 95 10/15/20 12:02 97.8 F 83 18 109/64 Intake and Output 10/15/20 10/16/20 10/16/20 22:59 06:59 14:59 Output Total 0 Balance 0 Output: Urine 0 Other: # Voids 0 Weight 92.5 kg Results CBC & Chem 7: 10/15/20 11:00 10/16/20 06:54 Labs: Abnormal Lab Results - Last 24 Hours (Table) 10/15/20 10/15/20 10/16/20 Range/Units 11:00 20:23 06:54 WBC 10.8 H (3.8-10.6) k/uL RBC 3.45 L (4.30-5.90) m/uL Hgb 10.2 L (13.0-17.5) gm/dL Hct 32.9 L (39.0-53.0) % RDW 18.2 H (11.5-15.5) % Sodium 135 L (137-145) mmol/L Potassium 5.5 H (3.5-5.1) mmol/L BUN 38 H (9-20) mg/dL Creatinine 5.07 H (0.66-1.25) mg/dL POC Glucose (mg/dL) 112 H (75-99) mg/dL Microbiology - Last 24 Hours (Table) 10/14/20 13:57 Gram Stain - Preliminary Foot - Left Wound Culture - Preliminary Assessment and Plan (1) Non-healing ulcer of left foot with necrosis of bone Current Visit: Yes Status: Acute Code(s): L97.524 - NON-PRS CHRONIC ULCER OTH PRT LEFT FOOT W NECROSIS OF BONE SNOMED Code(s): 902828039 (2) Unstageable pressure ulcer of left heel Current Visit: Yes Status: Acute Code(s): L89.620 - PRESSURE ULCER OF LEFT HEEL, UNSTAGEABLE SNOMED Code(s): 156359544
[2020-10-16] MEDS: COLLAGENASE 250 UNIT/GM OINTMENT 30 GM TUBE TOPICAL SCH (10:50)
--- NOTE | 2020-10-16 11:13 | P.PN ---
Subjective Progress Note Date: 10/16/20 Patient seen and examined. Overall doing well, no complaints. Objective - Vital Signs Vital signs: Vital Signs Temp 98.1 F 10/16/20 08:00 Pulse 77 10/16/20 08:00 Resp 18 10/16/20 08:00 BP 111/71 10/16/20 08:00 Pulse Ox 96 10/16/20 08:00 Intake & Output 10/15/20 10/16/20 10/16/20 18:59 06:59 18:59 Output Total 1999 0 Balance -2000 0 Weight 92.5 kg Output: Urine 0 Hemodialysis 1999 Other: # Voids 0 - Exam Gen. a pleasant cooperative male in no acute distress resting in the recliner. Heart is regular at this time. Lungs are clear. Excisional clubbing, cyanosis or edema. Left lower extremity with wound VAC clean, dry, intact. No obvious areas of necrosis at this - Labs CBC & Chem 7: 10/15/20 11:00 10/16/20 06:54 Labs: Abnormal Lab Results - Last 24 Hours (Table) 10/15/20 10/16/20 Range/Units 20:23 06:54 Sodium 135 L (137-145) mmol/L Potassium 5.5 H (3.5-5.1) mmol/L BUN 38 H (9-20) mg/dL Creatinine 5.07 H (0.66-1.25) mg/dL POC Glucose (mg/dL) 112 H (75-99) mg/dL Microbiology - Last 24 Hours (Table) 10/14/20 13:57 Gram Stain - Preliminary Foot - Left Wound Culture - Preliminary Assessment and Plan Assessment: Left foot infection Gangrene Diabetes End-stage renal disease Peripheral arterial disease status post femoral to posterior tibial bypass Plan: Continue local wound care, appreciate wound care input. Increase activity, offloading of the left lower extremity. PT OT
[2020-10-16 11:29] LABS: Glucose,Whole Blood 134 mg/dL (75-99)
[2020-10-16 12:23] LABS: HCT 32.3 % (39.6-50.0); HGB 9.4 g/dL (13.0-17.0); MCH 28.7 pg (27.0-32.0); MCHC 29.1 g/dL (32.0-37.0); MCV 98.8 fL (80.0-97.0); Mean Platelet Volume 12.1 fL (9.5-12.2); Platelet Count 178 X 10*3/uL (140-440); RBC 3.27 X 10*6/uL (4.40-5.60); RDW 19.6 % (11.5-14.5); WBC 10.72 X 10*3/uL (4.50-10.00)
--- NOTE | 2020-10-16 16:07 | PN ---
PROGRESS NOTE Patient is seen for followup for end-stage renal disease. He is maintained on a Monday, , Monday schedule for dialysis. Patient was admitted to the hospital with gangrene of his left forefoot and he is status post amputation of his forefoot with a wound VAC currently. PHYSICAL EXAMINATION: On examination today, blood pressure 111/71, heart rate 77 per minute, he is afebrile. Examination of the heart S1, S2. Examination of the lungs, bilateral breath sounds are heard. Abdomen is soft, nontender. Examination of lower extremities shows no evidence of edema. Left forefoot is in a wound VAC. No significant erythema noted. [employer] exam grossly intact. LAB: Show sodium 135, potassium 5.5, chloride 99, BUN 38, creatinine 5.07, hemoglobin 9.4 g/dL. ASSESSMENT: 1. End-stage renal disease, on hemodialysis on a Monday, , Monday schedule. 2. Peripheral vascular disease, status post forefoot amputation of the left lower extremity. 3. Chronic kidney disease mineral bone disorder, noncompliant as outpatient with phosphate binders. 4. Anemia of chronic disease. 5. Mild hyperkalemia. Expect improvement with dialysis tomorrow. PLAN: Add Renvela and hemodialysis in a.m. MMODL / IJN: [id number] /
[2020-10-16 17:06] LABS: Glucose,Whole Blood 123 mg/dL (75-99)
[2020-10-16] MEDS: SEVELAMER 800 MG TAB PO SCH (17:12)
--- NOTE | 2020-10-16 19:08 | PN ---
PROGRESS NOTE DATE OF SERVICE: 10/16/2020 REASON FOR FOLLOWUP: Left diabetic foot infection and osteomyelitis. INTERVAL HISTORY: Patient is currently afebrile. The patient is breathing comfortably. The patient denies having any chest pain. No shortness of breath. No cough. No nausea, vomiting. No abdominal pain or any worsening pain to the left foot. PHYSICAL EXAMINATION: Blood pressure 113/67, pulse of 73, temperature 97.5. He is 96% on room air. General description is middle-aged male lying in in no distress. Respiratory system: Unlabored breathing, clear to auscultation anteriorly. Heart S1, S2. Regular rate and rhythm. Abdomen soft, no tenderness. The left foot wound is currently covered with a wound VAC. Some surrounding swelling, minimal redness, no drainage. LABS: Hemoglobin 9.4 and white count 10.2, BUN of 38, creatinine 5.07. Culture so far pending. DIAGNOSTIC IMPRESSION AND PLAN: Patient with left foot gangrene status post transmetatarsal amputation with concern for osteomyelitis. The patient is currently on vancomycin and Flagyl to continue while waiting for the culture to finalize. Local care to continue with wound VAC and monitor clinical course closely. MMODL / IJN: [id number] /
[2020-10-16 21:11] LABS: Glucose,Whole Blood 151 mg/dL (75-99)
[2020-10-16] MEDS: ATORVASTATIN 80 MG TAB PO SCH (21:18)
[2020-10-16] MEDS: HYDROcodone/APAP 5-325MG 1 EACH TAB PO PRN (21:19)
[2020-10-17 07:02] LABS: Glucose,Whole Blood 137 mg/dL (75-99)
--- NOTE | 2020-10-17 08:05 | P.PN ---
Subjective Progress Note Date: 10/17/20 Principal diagnosis: This 65-year-old male with ESRD on dialysis Monday, admitted with gangrene of left foot and had transmetatarsal amputation of the toes, has a wound VAC. He is feeling fairly comfortable denies any fever chills cough shortness of breath nausea vomiting He is known with coronary artery bypass diabetes sleep apnea Objective - Vital Signs Vital signs: Vital Signs Temp 98.1 F 10/17/20 02:00 Pulse 67 10/17/20 02:00 Resp 18 10/17/20 02:00 BP 89/52 10/17/20 02:00 Pulse Ox 97 10/17/20 02:00 Intake & Output 10/16/20 10/17/20 10/17/20 18:59 06:59 18:59 Intake Total 500 200 Balance 500 200 Weight 90.5 kg Intake: Oral 500 200 On examination awake alert oriented comfortable HEENT exam no JVP neck is supple no facial asymmetry Lungs clear to auscultation good air entry bilaterally Heart sounds are unremarkable for any murmur rub gallop Abdomen soft nontender Extremity exam was no edema Wound VAC on the left foot Neurologically awake alert oriented Neurologically awake alert oriented - Labs CBC & Chem 7: 10/16/20 06:54 10/16/20 06:54 Labs: Abnormal Lab Results - Last 24 Hours (Table) 10/16/20 10/16/20 10/16/20 Range/Units 06:54 06:54 11:25 WBC 10.72 H (4.50-10.00) X 10*3/uL RBC 3.27 L (4.40-5.60) X 10*6/uL Hgb 9.4 L (13.0-17.0) g/dL Hct 32.3 L (39.6-50.0) % MCV 98.8 H (80.0-97.0) fL MCHC 29.1 L (32.0-37.0) g/dL RDW 19.6 H (11.5-14.5) % Sodium 135 L (137-145) mmol/L Potassium 5.5 H (3.5-5.1) mmol/L BUN 38 H (9-20) mg/dL Creatinine 5.07 H (0.66-1.25) mg/dL POC Glucose (mg/dL) 134 H (75-99) mg/dL 10/16/20 10/16/20 10/17/20 Range/Units 17:05 21:09 07:00 WBC (4.50-10.00) X 10*3/uL RBC (4.40-5.60) X 10*6/uL Hgb (13.0-17.0) g/dL Hct (39.6-50.0) % MCV (80.0-97.0) fL MCHC (32.0-37.0) g/dL RDW (11.5-14.5) % Sodium (137-145) mmol/L Potassium (3.5-5.1) mmol/L BUN (9-20) mg/dL Creatinine (0.66-1.25) mg/dL POC Glucose (mg/dL) 123 H 151 H 137 H (75-99) mg/dL Microbiology - Last 24 Hours (Table) 10/14/20 13:57 Gram Stain - Final Foot - Left Wound Culture - Final Assessment and Plan Assessment: Impression 1. ESRD on dialysis Monday with a right upper on graft. 2. Admitted with left foot infection status post transmetatarsal amputation. Wound VAC 3. Anemia off ESRD hemoglobin is 9.4 4 history of coronary artery bypass graft in the past, obstructive sleep apnea and, remote right kidney transplant, Recommendation 1. Continue same medication 2. Today is his dialysis day. 3. Watch anemia, obtain iron saturation
[2020-10-17] MEDS: INSULIN ASPART (NovoLOG) 100 UNIT/ML VIAL SQ SCH ×4 (08:06→20:18)
[2020-10-17] MEDS: metroNIDAZOLE 500 MG TAB PO SCH ×3 (08:06→20:19)
[2020-10-17] MEDS: ASPIRIN 81 MG PO SCH (08:07)
[2020-10-17] MEDS: METOPROLOL SUCCINATE (ER) 25 MG TAB.ER.24H PO SCH (08:07)
[2020-10-17] MEDS: PREGABALIN 25 MG CAP PO SCH (08:07)
[2020-10-17] MEDS: CLOPIDOGREL 75 MG TAB PO SCH (08:07)
[2020-10-17] MEDS: SEVELAMER 800 MG TAB PO SCH ×3 (08:07→17:18)
[2020-10-17] MEDS: COLLAGENASE 250 UNIT/GM OINTMENT 30 GM TUBE TOPICAL SCH (08:07)
[2020-10-17] MEDS: HYDROcodone/APAP 5-325MG 1 EACH TAB PO PRN (09:02)
[2020-10-17 09:03] LABS: African American GFR (CKD) 9 (>60 ml/min/1.73 sqM); Non-African American GFR(CKD) 8 (>60 ml/min/1.73 sqM)
[2020-10-17 09:25] LABS: Anion Gap 12 mmol/L; Blood Urea Nitrogen 55 mg/dL (9-20); Calcium 10.2 mg/dL (8.4-10.2); Carbon Dioxide 22 mmol/L (22-30); Chloride 100 mmol/L (98-107); Glucose 116 mg/dL (74-99); Potassium 5.4 mmol/L (3.5-5.1); Sodium 134 mmol/L (137-145)
[2020-10-17 09:30] LABS: Vancomycin,Random 27.3 ug/mL
--- NOTE | 2020-10-17 10:45 | P.PN ---
Subjective Progress Note Date: 10/17/20 Principal diagnosis: left foot pain Patient is a 65-year-old male with a history of end-stage renal disease status post kidney transplant but requiring recurrent dialysis on Monday//Monday, diabetes, GERD, dyslipidemia, and hypertension who [facility] concerning left foot gangrene. He was hospitalized here from 09/15 through 09/23 secondary to dry gangrene and osteomyelitis of the left third toe status post debridement and peripheral arterial disease status post left femoral arterial bypass grafting. His foot continued to worsen lot [facility] he therefore referred presented to the hospital. On arrival vital signs within normal limits, hemoglobin was at his baseline 10.4, sodium 131, potassium 5.4, CRP 15 (down from 17.5). He was started on vancomycin and was admitted for further monitoring. He was seen by vascular surgery, who recommended operative care of the gangrene and patient was taken to the OR on 10/14 and underwent transm etatarsal amputation with partial closer and wound VAC placement. He had some post-op hypoglycemia, which resolved with eating. He has continued to progress well. Patient seen and examined at bedside. Shortness of breath at baseline, + left foot pain, no chest pain, no nausea, General: non toxic, no distress, appears at stated age Derm: warm, dry Head: atraumatic, normocephalic, symmetric Eyes: EOMI, no lid lag, anicteric sclera Mouth: no lip lesion, mucus membranes dry Cardiovascular: S1S2 reg, no murmur, Lungs: Decreased breath sounds bilateral, no rhonchi, no rales , no accessory muscle use Abdominal: soft, nontender to palpation, no guarding, no appreciable organomegaly Ext: no gross muscle atrophy, no edema, no contractures, wound VAC in place over left foot Neuro: CN II-XI grossly intact, no focal neuro deficits Psych: Alert, oriented, appropriate affect Left foot dry gangrene, subacute osteomyelitis, status post left transmetatarsal amputation with wound vac placement -Vascular surgery recs appreciated, wound VAC -Previous cultures show enterococcus faecalis, continue vanco and anaerobic gram-negative bacilli flagyl, repeat cultures pending -wound care recs -Infectious disease recs Peripheral arterial disease -Status post recent fem-pop bypass -Continue aspirin, Plavix End-stage renal disease on hemodialysis Monday//Monday, hyponatremia and hyperkalemia -nephro recs -Continue with Renvela, sodium bicarb Diabetes mellitus type 2 with neuropathy, hypoglycemia -Sliding-scale insulin - A1c 7.8 -hold Glucotrol -Lyrica Hypertension, controlled -Controlled -Continue with Toprol Dyslipidemia -Not chronically on medications -Outpatient follow-up Anemia of end-stage renal disease - chronic and at baseline - follow CBC Chronic: SANA Benign brain tumor Short-term memory issues Gout DVT prophylaxis: Heparin Discussed with: patient, nursing, vascular surgery Anticipated discharge: 3-[address]: return to [facility] A total of 35 minutes was spent on the care of this complex patient more than 50% of the time was spent in counseling and care coordination. Objective - Vital Signs Vital signs: Vital Signs Temp 97.5 F L 10/17/20 08:00 Pulse 69 10/17/20 08:00 Resp 20 10/17/20 08:00 BP 99/86 10/17/20 08:00 Pulse Ox 98 10/17/20 08:00 Intake & Output 10/16/20 10/17/20 10/17/20 18:59 06:59 18:59 Intake Total 500 200 Balance 500 200 Weight 90.5 kg Intake: Oral 500 200 - Labs CBC & Chem 7: 10/16/20 06:54 10/17/20 08:18 Labs: Abnormal Lab Results - Last 24 Hours (Table) 10/16/20 10/16/20 10/16/20 Range/Units 06:54 11:25 17:05 WBC 10.72 H (4.50-10.00) X 10*3/uL RBC 3.27 L (4.40-5.60) X 10*6/uL Hgb 9.4 L (13.0-17.0) g/dL Hct 32.3 L (39.6-50.0) % MCV 98.8 H (80.0-97.0) fL MCHC 29.1 L (32.0-37.0) g/dL RDW 19.6 H (11.5-14.5) % Sodium (137-145) mmol/L Potassium (3.5-5.1) mmol/L BUN (9-20) mg/dL Creatinine (0.66-1.25) mg/dL Glucose (74-99) mg/dL POC Glucose (mg/dL) 134 H 123 H (75-99) mg/dL 10/16/20 10/17/20 10/17/20 Range/Units 21:09 07:00 08:18 WBC (4.50-10.00) X 10*3/uL RBC (4.40-5.60) X 10*6/uL Hgb (13.0-17.0) g/dL Hct (39.6-50.0) % MCV (80.0-97.0) fL MCHC (32.0-37.0) g/dL RDW (11.5-14.5) % Sodium 134 L (137-145) mmol/L Potassium 5.4 H (3.5-5.1) mmol/L BUN 55 H (9-20) mg/dL Creatinine 6.53 H (0.66-1.25) mg/dL Glucose 116 H (74-99) mg/dL POC Glucose (mg/dL) 151 H 137 H (75-99) mg/dL Microbiology - Last 24 Hours (Table) 10/14/20 13:57 Gram Stain - Final Foot - Left Wound Culture - Final
[2020-10-17 11:15] LABS: HCT 32.3 % (39.6-50.0); HGB 9.7 g/dL (13.0-17.0); MCH 29.2 pg (27.0-32.0); MCV 97.3 fL (80.0-97.0); Mean Platelet Volume 12.7 fL (9.5-12.2); Platelet Count 172 X 10*3/uL (140-440); RBC 3.32 X 10*6/uL (4.40-5.60); RDW 19.7 % (11.5-14.5); WBC 10.18 X 10*3/uL (4.50-10.00)
[2020-10-17 11:38] LABS: Glucose,Whole Blood 222 mg/dL (75-99)
[2020-10-17] MEDS: MIDODRINE 5 MG TAB PO PRN (12:32)
[2020-10-17] MEDS: ACETAMINOPHEN TAB 325 MG TAB PO SCH ×2 (16:01→16:37)
[2020-10-17 16:25] LABS: Glucose,Whole Blood 90 mg/dL (75-99)
--- NOTE | 2020-10-17 20:08 | PN ---
PROGRESS NOTE DATE OF SERVICE: 10/17/2020 REASON FOR FOLLOWUP: Left foot gangrene and osteomyelitis. INTERVAL HISTORY: Patient is afebrile. The patient is breathing comfortably. Patient denies having any chest pain, cough. No nausea, no vomiting. No abdominal pain or pain to the left foot. PHYSICAL EXAMINATION: Blood pressure 102/58 with a pulse of 66, temperature 97.7. He is 95% on room air. General description: The patient is a middle-aged male lying in bed in no distress. Respiratory system: Unlabored breathing, clear to auscultation anteriorly. Heart S1, S2. Regular rate and rhythm. ABDOMEN: Soft, no tenderness. Left foot wound is currently covered with a wound VAC. Surrounding swelling and redness slightly decreased. LABS: Hemoglobin is 9.4, white count 10.1. BUN 55, creatinine 6.53. Cultures so far negative. DIAGNOSTIC IMPRESSION AND PLAN: Patient with left foot nonhealing wound with recent history of osteomyelitis requiring amputation 3rd toe followed by transmetatarsal amputation. Local care to continue with wound VAC. Culture has been negative. Previous culture positive for Enterococcus and anaerobic gram-negative. Patient was treated with vancomycin and Flagyl to avoid PICC line. Continue current antibiotics. Local care as ordered and monitor clinical course closely. MMODL / IJN: [id number] /
[2020-10-17 20:18] LABS: Glucose,Whole Blood 133 mg/dL (75-99)
[2020-10-17] MEDS: ATORVASTATIN 80 MG TAB PO SCH (20:19)
[2020-10-17 22:38] LABS: % Iron Saturation 19.8 (15.00-50.00)
[2020-10-18] MEDS: ACETAMINOPHEN TAB 325 MG TAB PO SCH ×3 (02:14→17:11)
[2020-10-18 07:15] LABS: Glucose,Whole Blood 90 mg/dL (75-99)
[2020-10-18] MEDS: INSULIN ASPART (NovoLOG) 100 UNIT/ML VIAL SQ SCH ×4 (07:27→21:31)
[2020-10-18] MEDS: METOPROLOL SUCCINATE (ER) 25 MG TAB.ER.24H PO SCH (07:34)
[2020-10-18] MEDS: PREGABALIN 25 MG CAP PO SCH (07:35)
[2020-10-18] MEDS: ASPIRIN 81 MG PO SCH (07:35)
[2020-10-18] MEDS: SEVELAMER 800 MG TAB PO SCH ×3 (07:35→17:11)
[2020-10-18] MEDS: metroNIDAZOLE 500 MG TAB PO SCH ×3 (07:35→20:55)
[2020-10-18] MEDS: CLOPIDOGREL 75 MG TAB PO SCH (07:35)
[2020-10-18] MEDS: COLLAGENASE 250 UNIT/GM OINTMENT 30 GM TUBE TOPICAL SCH (07:36)
--- NOTE | 2020-10-18 09:16 | P.PN ---
Subjective Progress Note Date: 10/18/20 Principal diagnosis: This 65-year-old male with ESRD on dialysis Monday, admitted with gangrene of left foot and had transmetatarsal amputation of the toes, has a wound VAC. He is feeling fairly comfortable denies any fever chills cough shortness of breath nausea vomiting He is known with coronary artery bypass diabetes sleep apnea Objective - Vital Signs Vital signs: Vital Signs Temp 97.6 F 10/18/20 08:00 Pulse 75 10/18/20 08:00 Resp 16 10/18/20 08:00 BP 145/72 10/18/20 08:00 Pulse Ox 92 L 10/18/20 08:00 Intake & Output 10/17/20 10/18/20 10/18/20 18:59 06:59 18:59 Intake Total 600 240 Output Total 500 0 Balance 100 240 Weight 91.5 kg Intake: Intake, IV Titration 240 Amount Sodium Chloride 0.9% 1, 240 000 ml @ 0 mls/hr IV .[facility] Rx#:[id number] Oral 600 Output: Urine 0 Hemodialysis 500 Other: # Voids 0 # Bowel Movements 1 On examination awake alert oriented comfortable HEENT exam no JVP neck is supple no facial asymmetry Lungs are clear to auscultation good air entry bilaterally Heart sounds are grade 1-2 systolic ejection murmur. Abdomen soft nontender Extreme exam was minimal edema on the left from his surgical site and. The r ight leg has no edema Neurologically awake alert oriented comfortable sitting in a chair - Labs CBC & Chem 7: 10/17/20 08:18 10/17/20 08:18 Labs: Abnormal Lab Results - Last 24 Hours (Table) 10/17/20 10/17/20 10/17/20 Range/Units 08:18 08:18 08:18 WBC 10.18 H (4.50-10.00) X 10*3/uL RBC 3.32 L (4.40-5.60) X 10*6/uL Hgb 9.7 L (13.0-17.0) g/dL Hct 32.3 L (39.6-50.0) % MCV 97.3 H (80.0-97.0) fL MCHC 30.0 L (32.0-37.0) g/dL RDW 19.7 H (11.5-14.5) % MPV 12.7 H (9.5-12.2) fL Sodium 134 L (137-145) mmol/L Potassium 5.4 H (3.5-5.1) mmol/L BUN 55 H (9-20) mg/dL Creatinine 6.53 H (0.66-1.25) mg/dL Glucose 116 H (74-99) mg/dL POC Glucose (mg/dL) (75-99) mg/dL Iron 39 L (65-175) ug/dL TIBC 197 L (228-460) ug/dL 10/17/20 10/17/20 Range/Units 11:37 20:17 WBC (4.50-10.00) X 10*3/uL RBC (4.40-5.60) X 10*6/uL Hgb (13.0-17.0) g/dL Hct (39.6-50.0) % MCV (80.0-97.0) fL MCHC (32.0-37.0) g/dL RDW (11.5-14.5) % MPV (9.5-12.2) fL Sodium (137-145) mmol/L Potassium (3.5-5.1) mmol/L BUN (9-20) mg/dL Creatinine (0.66-1.25) mg/dL Glucose (74-99) mg/dL POC Glucose (mg/dL) 222 H 133 H (75-99) mg/dL Iron (65-175) ug/dL TIBC (228-460) ug/dL Microbiology - Last 24 Hours (Table) 10/14/20 13:57 Anaerobic Culture - Final Foot - Left Anaerobic Gm Negative Bacilli Assessment and Plan Assessment: Impression 1. ESRD on dialysis Monday with a right upper arm graft. 2. Admitted with left foot infection status post transmetatarsal amputation. Wound VAC, minimal edema on that leg 3. Anemia off ESRD hemoglobin is 9.4 > 9.7. Iron deficiency iron saturation is 19% on 10/17/2020 4. history of coronary artery bypass graft in the past, obstructive sleep apnea and, remote right kidney transplant, Recommendation 1. Continue same medication 2. Next dialysis will be Monday after tomorrow 10/20/2020 3. Intravenous Ferrlecit 125 mg, daily for 3 doses
[2020-10-18] MEDS: SODIUM FERRIC GLUCONAT-SUCROSE 125 MG in SODIUM CHLORIDE 0.9% 100 ML IVPB SCH (10:03)
--- NOTE | 2020-10-18 10:17 | P.PN ---
Subjective Progress Note Date: 10/18/20 Principal diagnosis: left foot pain Patient is a 65-year-old male with a history of end-stage renal disease status post kidney transplant but requiring recurrent dialysis on Monday//Monday, diabetes, GERD, dyslipidemia, and hypertension who [facility] foot gangrene. He was hospitalized here from 09/15 through 09/23 secondary to dry gangrene and osteomyelitis of the left third toe status post debridement and peripheral arterial disease status post left femoral arterial bypass grafting. His foot continued to worsen lot [facility] he therefore referred presented to the hospital. On arrival vital signs within normal limits, hemoglobin was at his baseline 10.4, sodium 131, potassium 5.4, CRP 15 (down from 17.5). He was started on vancomycin and was admitted for further monitoring. He was seen by vascular surgery, who recommended operative care of the gangrene and patient was taken to the OR on 10/14 and underwent transm etatarsal amputation with partial closer and wound VAC placement. He had some post-op hypoglycemia, which resolved with eating. He has continued to progress well. Patient seen and examined at bedside. Pain is well controlled, loose stool X1, no nausea, no vomiting General: non toxic, no distress, appears at stated age Derm: warm, dry Head: atraumatic, normocephalic, symmetric Eyes: EOMI, no lid lag, anicteric sclera Mouth: no lip lesion, mucus membranes dry Cardiovascular: S1S2 reg, no murmur, Lungs: Decreased breath sounds bilateral, no rhonchi, no rales , no accessory muscle use Abdominal: soft, nontender to palpation, no guarding, no appreciable organomegaly Ext: no gross muscle atrophy, no edema, no contractures, wound VAC in place over left foot Neuro: CN II-XI grossly intact, no focal neuro deficits Psych: Alert, oriented, appropriate affect Left foot dry gangrene, subacute osteomyelitis, status post left transmetatarsal amputation with wound vac placement -Vascular surgery recs appreciated, wound VAC -Repeat cultures with anerobic gram neg bacilli -wound care recs -Infectious disease recs Peripheral arterial disease -Status post recent fem-pop bypass -Continue aspirin, Plavix End-stage renal disease on hemodialysis Monday//Monday, hyponatremia and hyperkalemia -nephro recs -Continue with Renvela, sodium bicarb Diabetes mellitus type 2 with neuropathy, hypoglycemia -Sliding-scale insulin - A1c 7.8 -hold Glucotrol -Lyrica Hypertension, controlled -Controlled -Continue with Toprol Dyslipidemia -Not chronically on medications -Outpatient follow-up Anemia of end-stage renal disease - chronic and at baseline - follow CBC Chronic: SANA Benign brain tumor Short-term memory issues Gout anticipate back to [facility] in AM DVT prophylaxis: Heparin Discussed with: patient, nursing Anticipated discharge:in AM Anticipated discharge place: return to [facility] A total of 35 minutes was spent on the care of this complex patient more than 50% of the time was spent in counseling and care coordination. Objective - Vital Signs Vital signs: Vital Signs Temp 97.6 F 10/18/20 08:00 Pulse 75 10/18/20 08:00 Resp 16 10/18/20 08:00 BP 145/72 10/18/20 08:00 Pulse Ox 92 L 10/18/20 08:00 Intake & Output 10/17/20 10/18/20 10/18/20 18:59 06:59 18:59 Intake Total 600 240 Output Total 500 0 Balance 100 240 Weight 91.5 kg Intake: Intake, IV Titration 240 Amount Sodium Chloride 0.9% 1, 240 000 ml @ 0 mls/hr IV .STK -[facility] ONE Rx#:[id number] Oral 600 Output: Urine 0 Hemodialysis 500 Other: # Voids 0 # Bowel Movements 1 - Labs CBC & Chem 7: 10/17/20 08:18 10/17/20 08:18 Labs: Abnormal Lab Results - Last 24 Hours (Table) 10/17/20 10/17/20 10/17/20 Range/Units 08:18 08:18 11:37 WBC 10.18 H (4.50-10.00) X 10*3/uL RBC 3.32 L (4.40-5.60) X 10*6/uL Hgb 9.7 L (13.0-17.0) g/dL Hct 32.3 L (39.6-50.0) % MCV 97.3 H (80.0-97.0) fL MCHC 30.0 L (32.0-37.0) g/dL RDW 19.7 H (11.5-14.5) % MPV 12.7 H (9.5-12.2) fL POC Glucose (mg/dL) 222 H (75-99) mg/dL Iron 39 L (65-175) ug/dL TIBC 197 L (228-460) ug/dL 10/17/20 Range/Units 20:17 WBC (4.50-10.00) X 10*3/uL RBC (4.40-5.60) X 10*6/uL Hgb (13.0-17.0) g/dL Hct (39.6-50.0) % MCV (80.0-97.0) fL MCHC (32.0-37.0) g/dL RDW (11.5-14.5) % MPV (9.5-12.2) fL POC Glucose (mg/dL) 133 H (75-99) mg/dL Iron (65-175) ug/dL TIBC (228-460) ug/dL Microbiology - Last 24 Hours (Table) 10/14/20 13:57 Anaerobic Culture - Final Foot - Left Anaerobic Gm Negative Bacilli
[2020-10-18 11:43] LABS: Glucose,Whole Blood 112 mg/dL (75-99)
[2020-10-18 17:12] LABS: Glucose,Whole Blood 121 mg/dL (75-99)
--- NOTE | 2020-10-18 19:24 | PN ---
PROGRESS NOTE DATE OF SERVICE: 10/18/2020 REASON FOR FOLLOWUP: Left foot gangrene and osteomyelitis. INTERVAL HISTORY: Patient is afebrile. The patient is breathing comfortably. Patient denies having any chest pain or cough. No abdominal pain or any worsening pain to the left foot. PHYSICAL EXAMINATION: Blood pressure 101/59 with a pulse of 80. Temperature is 97.4. He is 92% on room air. General description is a middle-aged male lying in bed in no distress. Respiratory system: Unlabored breathing, clear to auscultation anteriorly. Heart S1, S2. Regular rate and rhythm. Abdomen: Soft, no tenderness. Left foot is currently covered with a wound VAC. Some swelling. No significant redness. LABS: Culture showing anaerobic Gram-negative bacilli. DIAGNOSTIC IMPRESSION AND PLAN: Patient with left foot gangrene and osteomyelitis, status post transmetatarsal amputation with the infected part removed and culture negative except anaerobic Gram- negative. Previous culture positive for Enterococcus faecalis. Patient is dialysis dependent. Require a PICC line to continue with vancomycin and oral Flagyl for at least 4 weeks and close outpatient followup. MMODL / IJN: [id number] /
[2020-10-18] MEDS: ATORVASTATIN 80 MG TAB PO SCH (20:55)
[2020-10-18 21:24] LABS: Glucose,Whole Blood 141 mg/dL (75-99)
[2020-10-19] MEDS: ACETAMINOPHEN TAB 325 MG TAB PO SCH ×2 (01:08→07:30)
[2020-10-19 06:58] LABS: Glucose,Whole Blood 109 mg/dL (75-99)
[2020-10-19 07:25] VITALS: BP 134/68; PULSE 76; RESP 16; TEMP 97.6
[2020-10-19] MEDS: INSULIN ASPART (NovoLOG) 100 UNIT/ML VIAL SQ SCH ×2 (07:25→12:18)
[2020-10-19] MEDS: metroNIDAZOLE 500 MG TAB PO SCH (07:30)
[2020-10-19] MEDS: ASPIRIN 81 MG PO SCH (07:30)
[2020-10-19] MEDS: PREGABALIN 25 MG CAP PO SCH (07:31)
[2020-10-19] MEDS: METOPROLOL SUCCINATE (ER) 25 MG TAB.ER.24H PO SCH (07:31)
[2020-10-19] MEDS: SEVELAMER 800 MG TAB PO SCH ×2 (07:31→12:18)
[2020-10-19] MEDS: CLOPIDOGREL 75 MG TAB PO SCH (07:31)
[2020-10-19] MEDS: COLLAGENASE 250 UNIT/GM OINTMENT 30 GM TUBE TOPICAL SCH (07:32)
[2020-10-19] MEDS: SODIUM FERRIC GLUCONAT-SUCROSE 125 MG in SODIUM CHLORIDE 0.9% 100 ML IVPB SCH (08:40)
--- NOTE | 2020-10-19 09:42 | P.DS ---
Providers Date of admission: 10/14/20 02:24 Expected date of discharge: 10/19/20 Attending physician: Danny Ambriz MD Consults: 10/14/20 02:29 Consult Physician Urgent Consulting Provider: Danilo Lazar Consult Reason/Comments: Left foot dry gangrene/osteomyelitis Do you want consulting provider notified?: Yes, Notify in am 10/14/20 15:28 Consult Physician Routine Consulting Provider: Tino Larios Consult Reason/Comments: osteomytelitis Do you want consulting provider notified?: Yes Consult Physician Urgent Consulting Provider: Shereen Juarez Consult Reason/Comments: ESRD Do you want consulting provider notified?: Yes Primary care physician: Wilian Zhang MD Hospital Course: Patient is a 65-year-old male with a history of end-stage renal disease status post kidney transplant but requiring recurrent dialysis on Monday//Monday, diabetes, GERD, dyslipidemia, and hypertension who presented from [facility] rehab concerning left foot gangrene. He was hospitalized here from 09/15 through 09/23 secondary to dry gangrene and osteomyelitis of the left third toe status post debridement and peripheral arterial disease status post left femoral arterial bypass grafting. His foot continued to worsen lot [facility] he therefore referred presented to the hospital. He was seen by vascular surgery, who recommended operative care of the gangrene and patient was taken to the OR on 10/14 and underwent transmetatarsal amputation with partial closer and wound VAC placement. He has continued to progress well. Left foot dry gangrene, subacute osteomyelitis, status post left transmetatarsal amputation with wound vac placement -Vascular surgery recs appreciated, wound VAC -Repeat cultures with anerobic gram neg bacilli -wound care recs -Infectious disease recs, 4 weeks of antibiotic with vancomycin and Flagyl with a stop date on November 13 Peripheral arterial disease -Status post recent fem-pop bypass -Continue aspirin, Plavix End-stage renal disease on hemodialysis Monday//Monday, -Continue with Renvela, sodium bicarb Diabetes mellitus type 2 with neuropathy, hypoglycemia - A1c 7.8 -Continue same regimen Hypertension, controlled Dyslipidemia -Started on Lipitor. Follow-up outpatient Anemia of end-stage renal disease - chronic and at baseline Chronic: ASNA Benign brain tumor Short-term memory issues Gout Patient will be discharged to [facility] in a stable condition. He is currently nonweightbearing LLE. Follow-up with vascular surgery as directed. Patient Condition at Discharge: Stable Plan - Discharge Summary New Discharge Prescriptions: New metroNIDAZOLE [Flagyl] 500 mg PO TID #90 tab Midodrine [ProAmatine] 10 mg PO AC-TID PRN tab PRN Reason: Hypotension Atorvastatin [Lipitor] 80 mg PO HS tab Continue allopurinoL [Zyloprim] 100 mg PO DAILY@0800 Metoprolol Succinate [Toprol XL] 25 mg PO DAILY@0800 Clopidogrel [Plavix] 75 mg PO DAILY@0800 Aspirin 81 mg PO DAILY@1700 Pregabalin [Lyrica] 25 mg PO DAILY@0800 #3 cap rOPINIRole HCL [Requip] 1 mg PO HS FLUoxetine HCL [PROzac] 20 mg PO DAILY@0800 Menthol-Zinc Oxide Oint [Calmoseptine Oint] 1 applic TOPICAL BID@0800,2100 Vitamins A and D [Vitamin A and D] 1 applic TOPICAL DAILY Sevelamer [Renvela] 1,600 mg PO AC-TID@08,,17 Sodium Bicarbonate Tab 650 mg PO BID@0800,1700 Liquacel 30 ml PO BID@1700,2100 Vancomycin 1,000 mg IV TUTHSA Renal Tablet 1 tab PO HS@2100 glipiZIDE [Glucotrol XL] 2.5 mg PO DAILY@0800 HYDROcodone/APAP 5-325MG [[place] 5-325] 1 tab PO Q6HR PRN #12 tab PRN Reason: Pain Discontinued Dakins (1/2 Strength) Soln 0.2 1 applic TOPICAL DAILY Levofloxacin [Levaquin] 500 mg PO DIRECTED Magnesium Hydroxide [Milk of Magnesia Concentrate] 7,200 mg PO DAILY PRN PRN Reason: Constipation bisacodyL [Dulcolax] 10 mg RECTAL DAILY PRN PRN Reason: Constipation Discharge Medication List allopurinoL [Zyloprim] 100 mg PO DAILY@0800 05/16/16 [History] FLUoxetine HCL [PROzac] 20 mg PO DAILY@0800 09/15/20 [History] Metoprolol Succinate [Toprol XL] 25 mg PO DAILY@0800 09/15/20 [History] rOPINIRole HCL [Requip] 1 mg PO HS 09/15/20 [History] Aspirin 81 mg PO DAILY@1700 10/14/20 [History] Clopidogrel [Plavix] 75 mg PO DAILY@0800 10/14/20 [History] Liquacel 30 ml PO BID@1700,209910/14/20 [History] Menthol-Zinc Oxide Oint [Calmoseptine Oint] 1 applic TOPICAL BID@0800,209910/14/20 [History] Renal Tablet 1 tab PO HS@209910/14/20 [History] Sevelamer [Renvela] 1,600 mg PO AC-TID@08,12,10/14/20 [History] Sodium Bicarbonate Tab 650 mg PO BID@0800,1700 10/14/20 [History] Vancomycin 1,000 mg IV TUTHSA 10/14/20 [History] Vitamins A and D [Vitamin A and D] 1 applic TOPICAL DAILY 10/14/20 [History] glipiZIDE [Glucotrol XL] 2.5 mg PO DAILY@0800 10/14/20 [History] Atorvastatin [Lipitor] 80 mg PO HS tab 10/19/20 [Rx] HYDROcodone/APAP 5-325MG [[place] 5-325] 1 tab PO Q6HR PRN #12 tab 10/19/20 [Rx] Midodrine [ProAmatine] 10 mg PO AC-TID PRN tab 10/19/20 [Rx] Pregabalin [Lyrica] 25 mg PO DAILY@0800 #3 cap 10/19/20 [Rx] metroNIDAZOLE [Flagyl] 500 mg PO TID #90 tab 10/19/20 [Rx] Follow up Appointment(s)/Referral(s): Wilian Zhang MD [Primary Care Provider] - 1-2 days Reyna Macias DO [STAFF PHYSICIAN] - 1 Week [facility] [NON-STAFF] - 1 Week Activity/Diet/Wound Care/Special Instructions: Wound VAC to left TMA site, change 3 times a week. Measurements 10 cm x 9 cm x 5 cm Discharge Disposition: TRANSFER TO SNF/ECF
--- NOTE | 2020-10-19 11:06 | P.PN ---
Subjective Progress Note Date: 10/19/20 Principal diagnosis: Left lower extremity abscess, gangrene A shunt seen and examined lying in bed. Overall is doing well. No acute changes through the night. Plan is for discharge to rehab with IV antibiotics which he will get with his hemodialysis. He is been afebrile, denies any chills. Pain is well controlled. Objective - Vital Signs Vital signs: Vital Signs Temp 97.6 F 10/19/20 07:24 Pulse 76 10/19/20 07:24 Resp 16 10/19/20 07:24 BP 134/68 10/19/20 07:24 Pulse Ox 96 10/19/20 07:24 Intake & Output 10/18/20 10/19/20 10/19/20 18:59 06:59 18:59 Intake Total 300 Balance 300 Weight 87.5 kg Intake: Intake, IV Titration 100 Amount Sodium Ferric Gluconat- 100 Sucrose 125 mg In Sodium Chloride 0.9% 100 ml @ 100 mls/hr IVPB DAILY FERNANDO Rx#:[id number] Oral 200 Other: # Bowel Movements 1 1 - Exam General appearance: The patient is alert, oriented, in no acute distress. HET: Head is normocephalic and atraumatic. Neck: Supple without lymphadenopathy. Trachea midline. Heart: S1 S2. Regular rate and rhythm. Lungs: Clear to auscultation. Abdomen: Soft, nontender, nondistended. Extremities: Lower extremity without any edema, warmth to touch, with good capillary refill. Left lower extremity with TMA with sutures, medial aspect of TMA site open with wound vac, small amount of slough tissue. Neurological: No focal deficits. Strength and sensation are grossly intact. - Labs CBC & Chem 7: 10/17/20 08:18 10/17/20 08:18 Labs: Abnormal Lab Results - Last 24 Hours (Table) 10/18/20 10/18/20 10/18/20 Range/Units 11:38 17:04 21:20 POC Glucose (mg/dL) 112 H 121 H 141 H (75-99) mg/dL 10/19/20 Range/Units 06:53 POC Glucose (mg/dL) 109 H (75-99) mg/dL Microbiology - Last 24 Hours (Table) 10/14/20 13:57 Anaerobic Culture - Final Foot - Left Bacteroides fragilis Assessment and Plan Assessment: 1. Postop day #4 for left transmetatarsal amputation with wound VAC placement 2. Left foot infection 3. Gangrene 4. Diabetes mellitus 5. End-stage renal disease on hemodialysis 6. Peripheral arterial disease status post femoral to posterior tibial bypass Plan: 1. Continue with wound VAC dressing, change every 3 days, okay to keep pressure at 120 in rehab. 2. Continue IV antibiotics recommended per infectious disease 3. Physical therapy on consult, nonweightbearing on the left lower extremity 4. Wound care consult per primary care medicine will need outpatient follow-up 5. Follow-up with Dr. Macias in 1-2 weeks. The impression and plan of care has been dictated as directed. Dr. Chou I performed a history and examination of this patient, discussed the same with the dictator. I agree with the dictator's note ,documented as a scribe. Any additional findings or plans will be noted.
[2020-10-19 11:59] LABS: Glucose,Whole Blood 133 mg/dL (75-99)
[2020-10-19] MEDS: HYDROcodone/APAP 5-325MG 1 EACH TAB PO PRN (12:19)
--- NOTE | 2020-10-19 12:56 | PN ---
PROGRESS NOTE DATE OF SERVICE: 10/19/2020. REASON FOR FOLLOW UP: Left foot gangrene and osteomyelitis. INTERVAL HISTORY: Patient is currently afebrile. The patient is breathing comfortably. Pain to the left foot is currently controlled. No chest pain or cough. No abdominal pain. No diarrhea. PHYSICAL EXAMINATION: Blood pressure 134/68, pulse of 76, temperature 97.6. He is 96% on room air. General description is a middle-aged male lying in in no distress. Respiratory system: Unlabored breathing. Clear to auscultation anteriorly. Heart S1, S2. Regular rate and rhythm. Abdomen soft, no tenderness. Left foot wound: No significant slough tissue surrounding redness has improved. No drainage. LABS: Wound culture with Bacteroides fragilis. DIAGNOSTIC IMPRESSION AND PLAN: Patient with left diabetic foot infection status post transmetatarsal amputation cultures with bacteremia concern was positive for Enterococcus. The patient is a dialysis patient and in order to avoid a PICC line, he will continue with vancomycin through dialysis for 4 weeks along with oral Flagyl. Local wound care with wound VAC and close outpatient followup. MMODL / IJN: [id number] /
--- NOTE | 2020-10-19 15:40 | PN ---
PROGRESS NOTE Patient is seen for followup for end-stage renal disease. He is maintained on a Monday, , Monday schedule for dialysis. The patient was admitted for gangrene left foot and he has had fore foot amputation. PHYSICAL EXAMINATION: On examination today, he is comfortable. Blood pressure 134/68, heart rate 76 per minute. He is afebrile. Examination of the heart S1, S2. Examination of the lungs, decreased breath sounds at bases. Abdomen is soft, nontender. Examination of lower extremities shows no evidence of edema. [employer]INE[employer] exam grossly intact. LAB: Show potassium 5.4 on 10/17/2020. Sodium 134, hemoglobin 9.7 g/dL. PLAN: Hemodialysis in a.m. Patient can be discharged from nephrology standpoint. Follow up with vascular surgery post discharge. MMODL / IJN: [id number] /
[2020-10-22 11:45] LABS: Glucose,Whole Blood 128 mg/dL (75-99)
[2020-10-22 11:45] LABS: Glucose,Whole Blood 87 mg/dL (75-99)
[2020-10-22 11:45] LABS: Glucose,Whole Blood 198 mg/dL (75-99)
[2020-10-22 11:45] LABS: Glucose,Whole Blood 120 mg/dL (75-99)
== END 2020-10-19 13:05 | DRG 239 ==
LOC: EC 01:16 → 4SSUR 02:24
PROVIDERS: ADMIT Internal Medicine; ATTEND Internal Medicine
PROC: 0Y6N0ZC Detachment at Left Foot, Partial 3rd Ray, Open Approach (ICD-10-PCS; 2020-10-14)
PROC: 0Y6N0ZD Detachment at Left Foot, Partial 4th Ray, Open Approach (ICD-10-PCS; 2020-10-14)
PROC: 0Y6N0ZF Detachment at Left Foot, Partial 5th Ray, Open Approach (ICD-10-PCS; 2020-10-14)
PROC: 0Y6N0Z9 Detachment at Left Foot, Partial 1st Ray, Open Approach (ICD-10-PCS; principal; 2020-10-14 14:45)
PROC: 0Y6N0ZB Detachment at Left Foot, Partial 2nd Ray, Open Approach (ICD-10-PCS; 2020-10-14 14:45)
DX: E11.52 Type 2 diabetes mellitus with diabetic peripheral angiopathy with gangrene (principal); N18.6 End stage renal disease; L03.116 Cellulitis of left lower limb; T86.12 Kidney transplant failure; I13.2 Hypertensive heart and chronic kidney disease with heart failure and with stage 5 chronic kidney disease, or end stage renal disease; M86.272 Subacute osteomyelitis, left ankle and foot; E87.1 Hypo-osmolality and hyponatremia; E11.621 Type 2 diabetes mellitus with foot ulcer; Z79.02 Long term (current) use of antithrombotics/antiplatelets; Z20.822 Contact with and (suspected) exposure to COVID-19; Z79.82 Long term (current) use of aspirin; Z82.49 Family history of ischemic heart disease and other diseases of the circulatory system; Z99.2 Dependence on renal dialysis; Z79.4 Long term (current) use of insulin; Z87.891 Personal history of nicotine dependence; Z95.1 Presence of aortocoronary bypass graft; E78.5 Hyperlipidemia, unspecified; E11.22 Type 2 diabetes mellitus with diabetic chronic kidney disease; E11.40 Type 2 diabetes mellitus with diabetic neuropathy, unspecified; N40.0 Benign prostatic hyperplasia without lower urinary tract symptoms; L89.620 Pressure ulcer of left heel, unstageable; E11.69 Type 2 diabetes mellitus with other specified complication; L97.524 Non-pressure chronic ulcer of other part of left foot with necrosis of bone; D63.1 Anemia in chronic kidney disease; G47.33 Obstructive sleep apnea (adult) (pediatric); E11.649 Type 2 diabetes mellitus with hypoglycemia without coma; E11.628 Type 2 diabetes mellitus with other skin complications; B95.2 Enterococcus as the cause of diseases classified elsewhere; E87.5 Hyperkalemia; D33.2 Benign neoplasm of brain, unspecified; I25.10 Atherosclerotic heart disease of native coronary artery without angina pectoris; M10.9 Gout, unspecified
CPT/HCPCS: 36415; 80048; 80053; 80202; 83540; 83550; 85025; 85027; 85610; 85652; 85730; 86140; 87070; 87075; 87205; 87635; 88307; 88311; 90935; 99285

== ENCOUNTER 2021-02-19 10:17 | Inpatient (IN) | payer MEDICARE, BC ==
--- NOTE | 2021-02-19 12:33 | XR ---
EXAMINATION TYPE: XR foot limited LT DATE OF EXAM: 02/19/2021 COMPARISON: NONE HISTORY: Pain TECHNIQUE: Three views are submitted. FINDINGS: Diffuse soft tissue edema. There is amputation of portions of the foot. Diffuse osteopenia. Calcaneal spurs and vascular calcifications noted. No acute fracture. No overt destructive change. IMPRESSION: 1. Soft tissue edema with postsurgical changes.
--- NOTE | 2021-02-19 12:37 | ED ---
Extremity Problem HPI - General Chief complaint: Extremity Problem,Nontraumatic Stated complaint: Post Op/ Lt Foot Wound Time Seen by Provider: 02/19/21 11:11 Source: patient, RN notes reviewed, old records reviewed Mode of arrival: ambulatory Limitations: no limitations - History of Present Illness Initial comments: Patient is a 65-year-old male with history of heart disease, diabetes, hypertension, kidney disease on dialysis TTS, presenting to the emergency department with concerns of a worsening wound on his left foot. Patient had partially dictation of his left foot back in October with Dr. Macias. He has been going to wound care every Monday, over the past week he started having increasing pain in his left foot and there has been a wound that has been opening, draining and now foul odor. Patient was sent into the ER by his home health care nurse as well as wound care. His last wound care check on Monday, they did a wound culture, this is pending. They were planning on starting him on antibiotics pending the wound culture. Patient's pain has been well controlled over the past few months, he normally rates it about a 2/10. Over the past week has been spiking up to an 8/10. He has been taking [place] which does help. He falls or trauma. He is not walking on the foot but he lives on his own and states that it hurts sometimes. He does not check wheelchair that he uses as well as a walker. He denies any fevers or chills, no chest pain or shortness of breath. No nausea or vomiting. He has no further complaints. His vitals are stable upon arrival. - Related Data Home Medications Medication Instructions Recorded Confirmed allopurinoL [Zyloprim] 100 mg PO DAILY@0800 05/16/16 02/19/21 FLUoxetine HCL [PROzac] 20 mg PO DAILY@0800 09/15/20 02/19/21 Metoprolol Succinate [Toprol XL] 25 mg PO DAILY 09/15/20 02/19/21 Aspirin 81 mg PO SUMOWEFR 10/14/20 02/19/21 Clopidogrel [Plavix] 75 mg PO HS 10/14/20 02/19/21 Sevelamer [Renvela] 1,600 mg PO AC-TID@08,12,17 10/14/20 02/19/21 Sodium Bicarbonate Tab 650 mg PO BID@0800,1700 06/02/21 10/08/21 glipiZIDE [Glucotrol XL] 2.5 mg PO DAILY 10/14/20 02/19/21 Furosemide [Lasix] 20 mg PO DAILY 02/19/21 02/19/21 Nepro-Mio 1 tab PO HS 02/19/21 02/19/21 Potassium Chloride 10 meq PO DAILY 02/19/21 02/19/21 rOPINIRole HCL [Requip] 1 mg PO HS 02/19/21 02/19/21 Previous Rx's Medication Instructions Recorded Atorvastatin [Lipitor] 80 mg PO HS tab 10/19/20 HYDROcodone/APAP 5-325MG [[place] 1 tab PO Q6HR PRN #12 tab 10/19/20 5-325] Midodrine [ProAmatine] 10 mg PO AC-TID PRN tab 10/19/20 Pregabalin [Lyrica] 25 mg PO DAILY@0800 #3 cap 10/19/20 Allergies Allergy/AdvReac Type Severity Reaction Status Date / Time No Known Allergies Allergy Verified 02/19/21 13:17 Review of Systems ROS Statement: Those systems with pertinent positive or pertinent negative responses have been documented in the HPI. ROS Other: All systems not noted in ROS Statement are negative. 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 History of Any Multi-Drug Resistant Organisms: None Reported Past Surgical History: Coronary Bypass/CABG, Heart Catheterization, Orthopedic Surgery Additional Past Surgical History / Comment(s): Recent transplant biopsy, vein mapping last week at [facility] in preparation for new fistula, meningioma benign brain tumor removed at [facility], (rt) kidney transplant 2013 at [facility], 5 vessel cabg, colonoscopy-clear, lt knee arthroscopy, rt arm fistulas with R upper arm fistula removed, forehead skin cancer removal. lef ttoe amputation Past Anesthesia/Blood Transfusion Reactions: Motion Sickness Past Psychological History: No Psychological Hx Reported Smoking Status: Former smoker - Past Family History Father Family Medical History: Hypertension, Myocardial Infarction ([place]), Renal Disease Additional Family Medical History / Comment(s): Pt states his father had received blood, had a reaction-a [place] and at the age of 40yrs. Mother Family Medical History: Dementia Additional Family Medical History / Comment(s): Mother is 82 yrs old. Sister(s) Family Medical History: Hyperlipidemia, Renal Disease Additional Family Medical History / Comment(s): Sister is on hemodialysis. General Exam - General Exam Comments Initial Comments: GENERAL: Patient is well-developed and well-nourished. Patient is nontoxic and in no acute distress. HEAD: Atraumatic, normocephalic. EYES: Pupils equal round and reactive to light, extraocular movements intact, sclera anicteric, conjunctiva are normal. Eyelids were unremarkable. ENT: Nares patent, oropharynx clear without exudates. Moist mucous membranes. NECK: Normal range of motion, supple without lymphadenopathy or JVD. LUNGS: Unlabored respirations. Breath sounds clear to auscultation bilaterally and equal. No wheezes rales or rhonchi. HEART: Regular rate and rhythm without murmurs, rubs or gallops. ABDOMEN: Soft, nontender, normoactive bowel sounds. No guarding, no rebound. No masses appreciated. MUSCULOSKELETAL: Patient has partially indicated foot on the left, all toes are missing, there is an open wound in this area. He has increase in pain with palpation. Rest of extremities with adequate strength and normal range of motion, no pitting or edema. No clubbing or cyanosis. NEUROLOGICAL: Patient is alert and oriented x 3. Motor and sensory are also intact. Symmetrical smile. Normal speech. PSYCH: Normal mood, normal affect. SKIN: Warm, Dry, normal turgor, no rashes. Dialysis port noted in the right upper extremity. Patient does have an open wound on the left foot, on the incision, this approximately 1-1/2 cm in diameter. There is an odor present, drainage, surrounding erythema. Limitations: no limitations Course Vital Signs 02/19/21 02/19/21 02/19/21 10:19 13:08 14:26 Temperature 98.0 F Pulse Rate 81 76 78 Respiratory 20 20 20 Rate Blood Pressure 106/54 97/60 107/67 O2 Sat by Pulse 99 98 97 Oximetry Medical Decision Making - Medical Decision Making Patient is a 65-year-old male here with partial amputation of the left foot performed in October, presenting for worsening wound, increase in pain over the past week. No fevers, so vitals are stable. His surgery was done by Dr. Macias. Patient's home health nurse and Wound Center wanted him to be evaluated in the ER. X-rays are stable the left foot, no signs of osteomyelitis. Labs show a normal white count, CRP is 5.4. Patient's kidney function is stable, he had dialysis yesterday. Patient will be admitted for wound care and cellulitis of the left foot, we'll start him on antibiotics, consult wound care and infectious disease. Patient is agreeable to this. Patient accepted by Dr. Hernandez. Case discussed with Dr. Gillette. - Lab Data Result diagrams: 02/19/21 12:30 02/19/21 12:30 Lab Results 02/19/21 02/19/21 02/19/21 Range/Units 12:30 12:30 13:04 WBC 7.5 (3.8-10.6) k/uL RBC 4.38 (4.30-5.90) m/uL Hgb 12.5 L (13.0-17.5) gm/dL Hct 41.6 (39.0-53.0) % MCV 94.9 (80.0-100.0) fL MCH 28.6 (25.0-35.0) pg MCHC 30.2 L (31.0-37.0) g/dL RDW 16.4 H (11.5-15.5) % Plt Count 159 (150-450) k/uL MPV 10.1 Neutrophils % 78 % Lymphocytes % 10 % Monocytes % 7 % Eosinophils % 2 % Basophils % 1 % Neutrophils # 5.9 (1.3-7.7) k/uL Lymphocytes # 0.7 L (1.0-4.8) k/uL Monocytes # 0.5 (0-1.0) k/uL Eosinophils # 0.2 (0-0.7) k/uL Basophils # 0.1 (0-0.2) k/uL Hypochromasia Slight Anisocytosis Slight ESR 8 (0-15) mm/hr Sodium 133 L (137-145) mmol/L Potassium 4.8 (3.5-5.1) mmol/L Chloride 94 L (98-107) mmol/L Carbon Dioxide 24 (22-30) mmol/L Anion Gap 15 mmol/L BUN 31 H (9-20) mg/dL Creatinine 4.07 H (0.66-1.25) mg/dL Est GFR (CKD-EPI)AfAm 17 (>60 ml/min/1.73 sqM) Est GFR (CKD-EPI)NonAf 15 (>60 ml/min/1.73 sqM) Glucose 116 H (74-99) mg/dL Calcium 9.9 (8.4-10.2) mg/dL Total Bilirubin 3.0 H (0.2-1.3) mg/dL AST 29 (17-59) U/L ALT 12 (4-49) U/L Alkaline Phosphatase 373 H (38-126) U/L C-Reactive Protein 5.4 H (<1.0) mg/dL Total Protein 7.0 (6.3-8.2) g/dL Albumin 3.7 (3.5-5.0) g/dL Coronavirus (PCR) Not Detected (Not Detectd) Disposition Clinical Impression: Cellulitis of left foot, Wound of left foot Disposition: ADMITTED IP TO THIS [facility] Condition: Stable Decision Date: 02/19/21 Decision Time: 13:38
[2021-02-19 12:48] LABS: Anisocytosis Slight; Basophils # (A) 0.1 k/uL (0-0.2); Basophils % (A) 1 %; Eosinophils # (A) 0.2 k/uL (0-0.7); Eosinophils % (A) 2 %; HCT 41.6 % (39.0-53.0); HGB 12.5 gm/dL (13.0-17.5); Hypochromasia Slight; Lymphocytes # (A) 0.7 k/uL (1.0-4.8); Lymphocytes % (A) 10 %; MCH 28.6 pg (25.0-35.0); MCHC 30.2 g/dL (31.0-37.0); MCV 94.9 fL (80.0-100.0); Mean Platelet Volume 10.1; Monocytes # (A) 0.5 k/uL (0-1.0); Monocytes % (A) 7 %; Neutrophils # (A) 5.9 k/uL (1.3-7.7); Neutrophils % (A) 78 %; Platelet Count 159 k/uL (150-450); RBC 4.38 m/uL (4.30-5.90); RDW 16.4 % (11.5-15.5); WBC 7.5 k/uL (3.8-10.6)
[2021-02-19 13:05] LABS: Albumin 3.7 g/dL (3.5-5.0); C Reactive Protein 5.4 mg/dL (<1.0); Calcium 9.9 mg/dL (8.4-10.2); Potassium 4.8 mmol/L (3.5-5.1)
[2021-02-19] MEDS ORDERED: cefTRIAXone IN SWFI 1,000 MG/10 ML SYRINGE IVP STA (13:39)
[2021-02-19] MEDS ORDERED: HYDROcodone/APAP 5-325MG 1 EACH TAB PO PRN (13:44)
[2021-02-19] MEDS ORDERED: NALOXONE 0.4 MG/ML 1 ML VIAL IV PRN (13:44)
[2021-02-19 14:37] LABS: Erythrocyte Sedimentation Rate 8 mm/hr (0-15)
[2021-02-19] MEDS ORDERED: VANCOMYCIN IV PER PHARMACY 1 EACH MISC MISCELLANE PRN (14:41)
[2021-02-19] MEDS ORDERED: PIPERACILLIN-TAZOBACTAM 3.375 GM in SODIUM CHLORIDE 0.9% 100 ML IVPB STA (14:43)
[2021-02-19] MEDS ORDERED: CEFEPIME 1 GM in SODIUM CHLORIDE 0.9% 50 ML IVPB STA (14:46)
[2021-02-19] MEDS ORDERED: VANCOMYCIN 1,500 MG in SODIUM CHLORIDE 0.9% 250 ML IVPB STA (14:53)
[2021-02-19] MEDS: FOLIC ACID-VIT B COMPLEX-VIT C 1 CAP PO SCH ×2 (17:55→22:03)
[2021-02-19] MEDS: ASPIRIN 81 MG PO SCH (17:55)
[2021-02-19] MEDS: SODIUM BICARBONATE TAB 650 MG TAB PO SCH (17:55)
--- NOTE | 2021-02-19 17:57 | P.HPIM ---
History of Present Illness H&P Date: 02/19/21 Chief Complaint: Foot Pain 65-year-old man with medical history of diabetes complicated by diabetic nephropathy/neuropathy, status post TMA in October 2020, hypertension, hyperli pidemia, gout, CAD status post CABG, CKD stage IV presented from wound care clinic with left foot pain. Patient says that he's been having pain in his left foot for the last week but has been worse the last one day. He went to wound care clinic and they sent him to the emergency room for further evaluation due to erythema and pustular drainage. Patient denies having any fevers, chills, nausea, vomiting, chest pain, palpitations, sick, presyncope, abdominal pain, cramps the patient, diarrhea, dysuria, dyschezia. In the emergency room patient is afebrile, hemodynamically stable. Labs are si gnificant for elevated BUN/creatinine to 31/4.07, which appears to be patient's baseline; alkaline phosphatase is 373, bilirubin is 3.0, CRP is 5.4. Covid was negative. Foot x-ray demonstrates soft tissue edema and postsurgical changes. 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 History of Any Multi-Drug Resistant Organisms: None Reported Past Surgical History: Coronary Bypass/CABG, Heart Catheterization, Orthopedic Surgery Additional Past Surgical History / Comment(s): Recent transplant biopsy, vein mapping last week at [facility] in preparation for new fistula, meningioma benign brain tumor removed at [facility], (rt) kidney transplant 2013 at [facility], 5 vessel cabg, colonoscopy-clear, lt knee arthroscopy, rt arm fistulas with R upper arm fistula removed, forehead skin cancer removal. lef ttoe amputation Past Anesthesia/Blood Transfusion Reactions: Motion Sickness Past Psychological History: No Psychological Hx Reported Smoking Status: Former smoker - Past Family History Father Family Medical History: Hypertension, Myocardial Infarction ([place]), Renal Disease Additional Family Medical History / Comment(s): Pt states his father had received blood, had a reaction-a [place] and at the age of 40yrs. Mother Family Medical History: Dementia Additional Family Medical History / Comment(s): Mother is 82 yrs old. Sister(s) Family Medical History: Hyperlipidemia, Renal Disease Additional Family Medical History / Comment(s): Sister is on hemodialysis. Medications and Allergies Home Medications Medication Instructions Recorded Confirmed Type allopurinoL [Zyloprim] 100 mg PO DAILY@0800 05/16/16 02/19/21 History FLUoxetine HCL [PROzac] 20 mg PO DAILY@0800 09/15/20 02/19/21 History Metoprolol Succinate [Toprol XL] 25 mg PO DAILY 09/15/20 02/19/21 History Aspirin 81 mg PO SUMOWEFR 10/14/20 02/19/21 History Clopidogrel [Plavix] 75 mg PO HS 10/14/20 02/19/21 History Sevelamer [Renvela] 1,600 mg PO AC-TID@08,12,17 10/14/20 02/19/21 History Sodium Bicarbonate Tab 650 mg PO BID@0800,1700 10/14/20 02/19/21 History glipiZIDE [Glucotrol XL] 2.5 mg PO DAILY 10/14/20 02/19/21 History Atorvastatin [Lipitor] 80 mg PO HS tab 10/19/20 02/19/21 Rx HYDROcodone/APAP 5-325MG [[place] 1 tab PO Q6HR PRN #12 tab 10/19/20 02/19/21 Rx 5-325] Midodrine [ProAmatine] 10 mg PO AC-TID PRN tab 10/19/20 02/19/21 Rx Pregabalin [Lyrica] 25 mg PO DAILY@0800 #3 cap 10/19/20 02/19/21 Rx Furosemide [Lasix] 20 mg PO DAILY 02/19/21 02/19/21 History Nepro-Mio 1 tab PO HS 02/19/21 02/19/21 History Potassium Chloride 10 meq PO DAILY 02/19/21 02/19/21 History rOPINIRole HCL [Requip] 1 mg PO HS 02/19/21 02/19/21 History Allergies Allergy/AdvReac Type Severity Reaction Status Date / Time No Known Allergies Allergy Verified 02/19/21 13:17 Physical Exam Osteopathic Statement: *. No significant issues noted on an osteopathic structural exam other than those noted in the History and Physical/Consult. Vitals: Vital Signs Temp Pulse Resp BP Pulse Ox 02/19/21 14:26 98.0 F 78 20 107/67 97 02/19/21 13:08 76 20 97/60 98 02/19/21 10:19 81 20 106/54 99 Intake and Output 02/19/21 02/19/21 02/19/21 06:59 14:59 22:59 Other: Weight 90.718 kg Gen: awake, alert HEENT: normocephalic, atraumatic, good hearing acuity, moist mucous membranes Resp: good air exchange, breathing comfortably with no accessory muscle use, clear to auscultation bilaterally CVS: good distal perfusion x 4, regular rate and rhythm without murmurs GI: soft, NTTP, ND : no SPT, no CVAT, guillen catheter not present MSK: Left TMA with early wound dehiscence, pustular drainage, surrounding erythema with hyperesthesia Neuro: non-focal, moving all extremities Psych: cooperative, euthymic mood Results CBC & Chem 7: 02/19/21 12:30 02/19/21 12:30 Labs: Abnormal Lab Results - Last 24 Hours (Table) 02/19/21 02/19/21 Range/Units 12:30 12:30 Hgb 12.5 L (13.0-17.5) gm/dL MCHC 30.2 L (31.0-37.0) g/dL RDW 16.4 H (11.5-15.5) % Lymphocytes # 0.7 L (1.0-4.8) k/uL Sodium 133 L (137-145) mmol/L Chloride 94 L (98-107) mmol/L BUN 31 H (9-20) mg/dL Creatinine 4.07 H (0.66-1.25) mg/dL Glucose 116 H (74-99) mg/dL Total Bilirubin 3.0 H (0.2-1.3) mg/dL Alkaline Phosphatase 373 H (38-126) U/L C-Reactive Protein 5.4 H (<1.0) mg/dL Assessment and Plan Assessment: Diabetic foot infection Left TMA Diabetic neuropathy -Admit inpatient -Infectious disease consult -Wound care consult -Vascular surgery consult -Vancomycin, cefepime -Follow wound cultures -ESR, CRP -Ecru when necessary -Continue Lyrica Diabetes type 2 Diabetic nephropathy CKD stage IV -Avoid nephrotoxins -Renally dosed medication -Nephrology consult -Continue Renvela, bicarb, Midodrine -Low-dose sliding scale insulin Hypertension Hyperlipidemia History of CAD Gout Restless leg syndrome -Home medications reviewed and reconciled Patient is full code DVT prophylaxis with heparin 3 times a day
[2021-02-19] MEDS: SEVELAMER 800 MG TAB PO SCH (18:00)
[2021-02-19] MEDS: INSULIN ASPART (NovoLOG) 100 UNIT/ML VIAL SQ SCH (21:42)
[2021-02-19] MEDS: ATORVASTATIN 80 MG TAB PO SCH (22:03)
[2021-02-19] MEDS: CLOPIDOGREL 75 MG TAB PO SCH (22:03)
[2021-02-19] MEDS: HEPARIN SODIUM,PORCINE/PF 5,000 UNIT/0.5 ML SYRINGE SQ SCH (22:03)
--- NOTE | 2021-02-20 00:09 | P.CONS ---
History of Present Illness - Reason for Consult Consult date: 02/19/21 left foot infection Requesting physician: Tonia Maria - Chief Complaint left foot swelling , redness and pain x days - History of Present Illness History of present illness : Patient is 65-year-old male with a past medical history significant for end-stage renal disease on hemodialysis in this patient who was recently admitted at this facility in October 2020 with a left foot toe gangrene status post left transmetatarsal amputation partial closure with wound VAC placement on 10/14/2020 cultures at that time did grew Bacteroides fragilis and Enterococcus faecalis patient was treated with vancomycin through dialysis and oral Flagyl and has completed his antibiotic therapy patient is well presenting to the ER per instruction of his wound care nurse for worsening swelling redness to the left foot that apparently has been going on for more than a week now patient denies having history of any trauma patient complaining of more swelling and redness to the left foot has been complaining of more pain to the left foot almost 8 out of 10 some improvement with the [place] did have minimal drainage but no foul-smelling apparently the patient was evaluated in [facility] and they have obtained a culture but no antibiotics were started patient on presentation to the hospital was afebrile patient did have a normal white count elevated BUN and creatinine CRP was elevated [place] PCR was negative patient did have x-rays of the foot soft tissue edema with postsurgical changes patient was started on vancomycin and Zosyn infectious disease was consulted for further management of antibiotic therapy Review of system: CONSTITUTIONAL: Positive for weakness denies high-grade fever. EYES: No complaint. ENT: No complaint. RESPIRATORY: No complaint. CARDIOVASCULAR: No complaint. GENITOURINARY: No complaint. GASTROINTESTINAL: No complaint. MUSCULOSKELETAL as per history of present illness INTEGUMENTARY: As per history of present illness t. PSYCHOLOGIC: No complaint. ENDOCRINE: No complaint. NEUROLOGIC: No complaint. Past medical history : Reviewed, documented below Past surgical history : Reviewed, documented below Social history: Reviewed, documented below Medications: Reviewed, as documented below EXAMINATION: Vital sigans= Reviewed and documented below GENERAL DESCRIPTION: Middle-aged male lying in bed, no distress. No tachypnea or accessory muscle of respiration use. HEENT: Shows Pallor , no scleral icterus. Oral mucous membrane is dry. NECK: Trachea central, no thyromegaly. LUNGS: Unlabored breathing. Clear to auscultation anteriorly. No wheeze or crackle. HEART: S1, S2, regular rate and rhythm. ABDOMEN: Soft, no tenderness , guarding or rigidity EXTREMITIES: Left foot transmetatarsal amputation site did have a swelling redness and bruising in the wound with minimal purulent drainage. SKIN: No rash, no masses palpable. NEUROLOGICAL: The patient is awake, alert, oriented x3, mood and affect normal. LABS AND RADIOLOGY: Reviewed results see below Assessment : Patient with left diabetic foot infection in this patient who did have history of toes gangrene status post left transmetatarsal amputation presented to hospital with nonhealing of the wound significant bruising and concern for underlying cellulitis with recent culture positive for bacteroids species Plan: 1-patient will benefit from surgical evaluation debridement and deep cultures 2-vancomycin pharmacy to dose along with cefepime and will add Flagyl 3-dry protective dressing to the wound change daily the patient was evaluated by surgery We will follow on clinical condition and cultures to further adjust medication if needed Thank you for this consultation we will follow the patient along with you Past Medical History Past Medical History: Coronary Artery Disease (CAD), Chest Pain / Angina, Heart Failure, Diabetes Mellitus, Dialysis, GERD/Reflux, Hyperlipidemia, Hypertension, Prostate Disorder, Renal Disease, Sleep Apnea/CPAP/BIPAP Additional Past Medical History / Comment(s): 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 History of Any Multi-Drug Resistant Organisms: None Reported Past Surgical History: Coronary Bypass/CABG, Heart Catheterization, Orthopedic Surgery Additional Past Surgical History / Comment(s): Recent transplant biopsy, vein mapping last week at [facility] in preparation for new fistula, meningioma benign brain tumor removed at [facility], (rt) kidney transplant 2013 at [facility], 5 vessel cabg, colonoscopy-clear, lt knee arthroscopy, rt arm fistulas with R upper arm fistula removed, forehead skin cancer removal. lef ttoe amputation Past Anesthesia/Blood Transfusion Reactions: Motion Sickness Past Psychological History: No Psychological Hx Reported Smoking Status: Former smoker - Past Family History Father Family Medical History: Hypertension, Myocardial Infarction ([place]), Renal Disease Additional Family Medical History / Comment(s): Pt states his father had received blood, had a reaction-a [place] and at the age of 40yrs. Mother Family Medical History: Dementia Additional Family Medical History / Comment(s): Mother is 82 yrs old. Sister(s) Family Medical History: Hyperlipidemia, Renal Disease Additional Family Medical History / Comment(s): Sister is on hemodialysis. Medications and Allergies Home Medications Medication Instructions Recorded Confirmed Type allopurinoL [Zyloprim] 100 mg PO DAILY@0800 05/16/16 02/19/21 History FLUoxetine HCL [PROzac] 20 mg PO DAILY@0800 09/15/20 02/19/21 History Metoprolol Succinate [Toprol XL] 25 mg PO DAILY 09/15/20 02/19/21 History Aspirin 81 mg PO SUMOWEFR 10/14/20 02/19/21 History Clopidogrel [Plavix] 75 mg PO HS 10/14/20 02/19/21 History Sevelamer [Renvela] 1,600 mg PO AC-TID@08,12,17 10/14/20 02/19/21 History Sodium Bicarbonate Tab 650 mg PO BID@0800,1700 10/14/20 02/19/21 History glipiZIDE [Glucotrol XL] 2.5 mg PO DAILY 10/14/20 02/19/21 History Atorvastatin [Lipitor] 80 mg PO HS tab 10/19/20 02/19/21 Rx HYDROcodone/APAP 5-325MG [[place] 1 tab PO Q6HR PRN #12 tab 10/19/20 02/19/21 Rx 5-325] Midodrine [ProAmatine] 10 mg PO AC-TID PRN tab 10/19/20 02/19/21 Rx Pregabalin [Lyrica] 25 mg PO DAILY@0800 #3 cap 10/19/20 02/19/21 Rx Furosemide [Lasix] 20 mg PO DAILY 02/19/21 02/19/21 History Nepro-Mio 1 tab PO HS 02/19/21 02/19/21 History Potassium Chloride 10 meq PO DAILY 02/19/21 02/19/21 History rOPINIRole HCL [Requip] 1 mg PO HS 02/19/21 02/19/21 History Allergies Allergy/AdvReac Type Severity Reaction Status Date / Time No Known Allergies Allergy Verified 02/19/21 13:17 Physical Exam Vitals: Vital Signs Temp Pulse Pulse Resp BP BP Pulse Ox 02/19/21 20:00 97.9 F 66 16 112/68 94 L 02/19/21 17:56 84 20 102/58 98 02/19/21 14:26 98.0 F 78 20 107/67 97 02/19/21 13:08 76 20 97/60 98 02/19/21 10:19 81 20 106/54 99 Intake and Output 02/19/21 02/19/21 02/20/21 14:59 22:59 06:59 Other: Weight 90.718 kg 90.718 kg Results CBC & Chem 7: 02/19/21 12:30 02/19/21 12:30 Labs: Abnormal Lab Results - Last 24 Hours (Table) 02/19/21 02/19/21 Range/Units 12:30 12:30 Hgb 12.5 L (13.0-17.5) gm/dL MCHC 30.2 L (31.0-37.0) g/dL RDW 16.4 H (11.5-15.5) % Lymphocytes # 0.7 L (1.0-4.8) k/uL Sodium 133 L (137-145) mmol/L Chloride 94 L (98-107) mmol/L BUN 31 H (9-20) mg/dL Creatinine 4.07 H (0.66-1.25) mg/dL Glucose 116 H (74-99) mg/dL Total Bilirubin 3.0 H (0.2-1.3) mg/dL Alkaline Phosphatase 373 H (38-126) U/L C-Reactive Protein 5.4 H (<1.0) mg/dL
[2021-02-20] MEDS: HYDROcodone/APAP 5-325MG 1 EACH TAB PO PRN ×2 (04:59→11:46)
[2021-02-20] MEDS: CEFEPIME 1 GM in SODIUM CHLORIDE 0.9% 50 ML IVPB SCH ×2 (04:59→16:44)
[2021-02-20] MEDS ORDERED: PIPERACILLIN-TAZOBACTAM 3.375 GM in SODIUM CHLORIDE 0.9% 100 ML IVPB SCH (06:00)
[2021-02-20 06:58] LABS: Glucose,Whole Blood 100 mg/dL (75-99)
[2021-02-20] MEDS: INSULIN ASPART (NovoLOG) 100 UNIT/ML VIAL SQ SCH ×3 (07:02→16:36)
[2021-02-20] MEDS: METOPROLOL SUCCINATE (ER) 25 MG TAB.ER.24H PO SCH (08:05)
[2021-02-20] MEDS: FUROSEMIDE 20 MG TAB PO SCH (08:14)
[2021-02-20] MEDS: FLUoxetine HCL 20 MG CAP PO SCH (08:14)
[2021-02-20] MEDS: HEPARIN SODIUM,PORCINE/PF 5,000 UNIT/0.5 ML SYRINGE SQ SCH ×3 (08:14→23:53)
[2021-02-20] MEDS: ASPIRIN 81 MG PO SCH (08:14)
[2021-02-20] MEDS: SODIUM BICARBONATE TAB 650 MG TAB PO SCH ×2 (08:14→16:45)
[2021-02-20] MEDS: allopurinoL 100 MG TAB PO SCH (08:14)
[2021-02-20] MEDS: metroNIDAZOLE 500 MG TAB PO SCH ×3 (08:14→20:21)
[2021-02-20] MEDS: PREGABALIN 25 MG CAP PO SCH (08:14)
[2021-02-20] MEDS: SEVELAMER 800 MG TAB PO SCH ×3 (08:15→16:43)
[2021-02-20 08:32] LABS: Anisocytosis Slight; Basophils # (A) 0.1 k/uL (0-0.2); Basophils % (A) 1 %; Eosinophils # (A) 0.1 k/uL (0-0.7); Eosinophils % (A) 2 %; HCT 40.7 % (39.0-53.0); HGB 12.4 gm/dL (13.0-17.5); Hypochromasia Moderate; Lymphocytes # (A) 0.6 k/uL (1.0-4.8); Lymphocytes % (A) 8 %; MCH 29.1 pg (25.0-35.0); MCHC 30.3 g/dL (31.0-37.0); MCV 95.8 fL (80.0-100.0); Mean Platelet Volume 10.5; Monocytes # (A) 0.4 k/uL (0-1.0); Monocytes % (A) 5 %; Neutrophils # (A) 6.3 k/uL (1.3-7.7); Neutrophils % (A) 83 %; Platelet Count 154 k/uL (150-450); RBC 4.25 m/uL (4.30-5.90); RDW 16.6 % (11.5-15.5); WBC 7.7 k/uL (3.8-10.6)
[2021-02-20 08:50] LABS: African American GFR (CKD) 12 (>60 ml/min/1.73 sqM); Anion Gap 16 mmol/L; Blood Urea Nitrogen 42 mg/dL (9-20); C Reactive Protein 6.6 mg/dL (<1.0); Calcium 9.8 mg/dL (8.4-10.2); Carbon Dioxide 24 mmol/L (22-30); Chloride 92 mmol/L (98-107); Glucose 172 mg/dL (74-99); Magnesium 2.4 mg/dL (1.6-2.3); Non-African American GFR(CKD) 11 (>60 ml/min/1.73 sqM); Potassium 4.7 mmol/L (3.5-5.1); Sodium 132 mmol/L (137-145)
--- NOTE | 2021-02-20 09:55 | P.NPCON ---
History of Present Illness - Reason for Consult end stage renal disease - History of Present Illness Reason for consultation: End-stage renal disease History of present illness: Patient is a 65-year-old male seen in renal consultation for end-stage renal disease. He is maintained on hemodialysis on Monday schedule via AV fistula. Patient states he was being treated for left foot wound and was advised to go to the hospital due to drainage and followed her. He is currently on IV antibiotics. Infectious disease and vascular surgery have been consulted. He is scheduled for dialysis today. No edema. No chest pain or shortness of breath. No vomiting or diarrhea. Hemodynamically stable. No active complaints. Vital signs are stable. General: The patient appeared well nourished and normally developed. HEENT: Head exam is unremarkable. LUNGS: Breath sounds decreased. HEART: Rate and Rhythm are regular. ABDOMEN: Soft, no distention. EXTREMITITES: No edema. Left foot drop. 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 History of Any Multi-Drug Resistant Organisms: None Reported Past Surgical History: Coronary Bypass/CABG, Heart Catheterization, Orthopedic Surgery Additional Past Surgical History / Comment(s): Recent transplant biopsy, vein mapping last week at [facility] in preparation for new fistula, meningioma benign brain tumor removed at [facility], (rt) kidney transplant 2012 at [facility], 5 vessel cabg, colonoscopy-clear, lt knee arthroscopy, rt arm fistulas with R upper arm fistula removed, forehead skin cancer removal. lef ttoe amputation Past Anesthesia/Blood Transfusion Reactions: Motion Sickness Past Psychological History: No Psychological Hx Reported Smoking Status: Former smoker - Past Family History Father Family Medical History: Hypertension, Myocardial Infarction ([place]), Renal Disease Additional Family Medical History / Comment(s): Pt states his father had received blood, had a reaction-a DE and at the age of 40yrs. Mother Family Medical History: Dementia Additional Family Medical History / Comment(s): Mother is 82 yrs old. Sister(s) Family Medical History: Hyperlipidemia, Renal Disease Additional Family Medical History / Comment(s): Sister is on hemodialysis. Medications and Allergies Home Medications Medication Instructions Recorded Confirmed Type allopurinoL [Zyloprim] 100 mg PO DAILY@0800 05/16/16 02/19/21 History FLUoxetine HCL [PROzac] 20 mg PO DAILY@0800 09/15/20 02/19/21 History Metoprolol Succinate [Toprol XL] 25 mg PO DAILY 09/15/20 02/19/21 History Aspirin 81 mg PO SUMOWEFR 10/14/20 02/19/21 History Clopidogrel [Plavix] 75 mg PO HS 10/14/20 02/19/21 History Sevelamer [Renvela] 1,600 mg PO AC-TID@08,12,17 10/14/20 02/19/21 History Sodium Bicarbonate Tab 650 mg PO BID@0800,1700 10/14/20 02/19/21 History glipiZIDE [Glucotrol XL] 2.5 mg PO DAILY 10/14/20 02/19/21 History Atorvastatin [Lipitor] 80 mg PO HS tab 10/19/20 02/19/21 Rx HYDROcodone/APAP 5-325MG [[place] 1 tab PO Q6HR PRN #12 tab 10/19/20 02/19/21 Rx 5-325] Midodrine [ProAmatine] 10 mg PO AC-TID PRN tab 10/19/20 02/19/21 Rx Pregabalin [Lyrica] 25 mg PO DAILY@0800 #3 cap 10/19/20 02/19/21 Rx Furosemide [Lasix] 20 mg PO DAILY 02/19/21 02/19/21 History Nepro-Mio 1 tab PO HS 02/19/21 02/19/21 History Potassium Chloride 10 meq PO DAILY 02/19/21 02/19/21 History rOPINIRole HCL [Requip] 1 mg PO HS 02/19/21 02/19/21 History Allergies Allergy/AdvReac Type Severity Reaction Status Date / Time No Known Allergies Allergy Verified 02/19/21 13:17 Physical Exam Vitals: Vital Signs Temp Pulse Pulse Resp BP BP Pulse Ox 02/20/21 08:00 97.6 F 82 16 102/61 94 L 02/20/21 02:00 98.7 F 83 16 118/70 96 02/19/21 20:00 97.9 F 66 16 112/68 94 L 02/19/21 17:56 84 20 102/58 98 02/19/21 14:26 98.0 F 78 20 107/67 97 02/19/21 13:08 76 20 97/60 98 02/19/21 10:19 81 20 106/54 99 Intake and Output 02/19/21 02/20/21 02/20/21 22:59 06:59 14:59 Other: # Voids 2 Weight 90.718 kg Results - Lab Results Most recent lab results Calcium 9.8 mg/dL (8.4-10.2) 02/20/21 08:06 Magnesium 2.4 mg/dL (1.6-2.3) H 02/20/21 08:06 02/20/21 08:06 02/20/21 08:06 Assessment and Plan Plan: Assessment: 1. End-stage renal disease maintained on hemodialysis on Monday schedule via AV fistula. 2. Left foot wound maintained on antibiotics. 3. Chronic kidney disease mineral bone disease maintained on Renvela. 4. Chronic hypotension maintained on midodrine. Plan: Hemodialysis today. Thank you for the consultation. I will continue to follow the patient with you during his hospital stay.
[2021-02-20 10:22] LABS: Erythrocyte Sedimentation Rate 6 mm/hr (0-15)
[2021-02-20 11:37] LABS: Glucose,Whole Blood 178 mg/dL (75-99)
--- NOTE | 2021-02-20 13:07 | P.GSCN ---
History of Present Illness Consult date: 02/20/21 History of present illness: Yoshi is a 65-year-old male who came in the hospital from wound care for worsening left lower extremity order and pain at his transferred her sanitation site. He has previously undergone a femoral to tibial bypass at the ankle. Per his report he hasn't really seen Dr. Chou in the office. He has been mainly following with wound care. He thought his wound is healing well without any issue and then all of a sudden became worsened. 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 History of Any Multi-Drug Resistant Organisms: None Reported Past Surgical History: Coronary Bypass/CABG, Heart Catheterization, Orthopedic Surgery Additional Past Surgical History / Comment(s): Recent transplant biopsy, vein mapping last week at [facility] in preparation for new fistula, meningioma benign brain tumor removed at [facility], (rt) kidney transplant [address] [facility], 5 vessel cabg, colonoscopy-clear, lt knee arthroscopy, rt arm fistulas with R upper arm fistula removed, forehead skin cancer removal. lef ttoe amputation Past Anesthesia/Blood Transfusion Reactions: Motion Sickness Past Psychological History: No Psychological Hx Reported Smoking Status: Former smoker - Past Family History Father Family Medical History: Hypertension, Myocardial Infarction ([place]), Renal Disease Additional Family Medical History / Comment(s): Pt states his father had received blood, had a reaction-a PR and at the age of 40yrs. Mother Family Medical History: Dementia Additional Family Medical History / Comment(s): Mother is 82 yrs old. Sister(s) Family Medical History: Hyperlipidemia, Renal Disease Additional Family Medical History / Comment(s): Sister is on hemodialysis. Medications and Allergies Home Medications Medication Instructions Recorded Confirmed Type allopurinoL [Zyloprim] 100 mg PO DAILY@0800 05/16/16 02/19/21 History FLUoxetine HCL [PROzac] 20 mg PO DAILY@0800 09/15/20 02/19/21 History Metoprolol Succinate [Toprol XL] 25 mg PO DAILY 09/15/20 02/19/21 History Aspirin 81 mg PO SUMOWEFR 10/14/20 02/19/21 History Clopidogrel [Plavix] 75 mg PO HS 10/14/20 02/19/21 History Sevelamer [Renvela] 1,600 mg PO AC-TID@08,,17 10/14/20 02/19/21 History Sodium Bicarbonate Tab 650 mg PO BID@0800,1700 10/14/20 02/19/21 History glipiZIDE [Glucotrol XL] 2.5 mg PO DAILY 10/14/20 02/19/21 History Atorvastatin [Lipitor] 80 mg PO HS tab 10/19/20 02/19/21 Rx HYDROcodone/APAP 5-325MG [[place] 1 tab PO Q6HR PRN #12 tab 10/19/20 02/19/21 Rx 5-325] Midodrine [ProAmatine] 10 mg PO AC-TID PRN tab 10/19/20 02/19/21 Rx Pregabalin [Lyrica] 25 mg PO DAILY@0800 #3 cap 10/19/20 02/19/21 Rx Furosemide [Lasix] 20 mg PO DAILY 02/19/21 02/19/21 History Nepro-Mio 1 tab PO HS 02/19/21 02/19/21 History Potassium Chloride 10 meq PO DAILY 02/19/21 02/19/21 History rOPINIRole HCL [Requip] 1 mg PO HS 02/19/21 02/19/21 History Allergies Allergy/AdvReac Type Severity Reaction Status Date / Time No Known Allergies Allergy Verified 02/19/21 13:17 Surgical - Exam Vital Signs Pulse Resp BP Pulse Ox 81 20 106/54 99 02/19/21 10:19 02/19/21 10:19 02/19/21 10:19 02/19/21 10:19 Gen. a pleasant cooperative male in no acute distress. HEENT normocephalic, atraumatic, extraocular motion intact. Heart appears regular. Lungs are clear. Abdomen soft. Right upper extremity fistula clean and dry with good thrill. Left lower extremity transmetatarsal amputation site with necrotic appearing skin. Foul odor. Results - Labs 02/20/21 08:06 02/20/21 08:06 Abnormal Lab Results - Last 24 Hours (Table) 02/19/21 02/20/21 02/20/21 Range/Units 12:30 06:56 08:06 RBC 4.25 L (4.30-5.90) m/uL Hgb 12.4 L (13.0-17.5) gm/dL MCHC 30.3 L (31.0-37.0) g/dL RDW 16.6 H (11.5-15.5) % Lymphocytes # 0.6 L (1.0-4.8) k/uL Sodium 133 L (137-145) mmol/L Chloride 94 L (98-107) mmol/L BUN 31 H (9-20) mg/dL Creatinine 4.07 H (0.66-1.25) mg/dL Glucose 116 H (74-99) mg/dL POC Glucose (mg/dL) 100 H (75-99) mg/dL Magnesium (1.6-2.3) mg/dL Total Bilirubin 3.0 H (0.2-1.3) mg/dL Alkaline Phosphatase 373 H (38-126) U/L C-Reactive Protein 5.4 H (<1.0) mg/dL 02/20/21 02/20/21 Range/Units 08:06 11:36 RBC (4.30-5.90) m/uL Hgb (13.0-17.5) gm/dL MCHC (31.0-37.0) g/dL RDW (11.5-15.5) % Lymphocytes # (1.0-4.8) k/uL Sodium 132 L (137-145) mmol/L Chloride 92 L (98-107) mmol/L BUN 42 H (9-20) mg/dL Creatinine 5.24 H (0.66-1.25) mg/dL Glucose 172 H (74-99) mg/dL POC Glucose (mg/dL) 178 H (75-99) mg/dL Magnesium 2.4 H (1.6-2.3) mg/dL Total Bilirubin (0.2-1.3) mg/dL Alkaline Phosphatase (38-126) U/L C-Reactive Protein 6.6 H (<1.0) mg/dL Microbiology - Last 24 Hours (Table) 02/19/21 15:46 Gram Stain - Preliminary Foot - Left Wound Culture - Preliminary Diabetes panel 02/19/21 02/20/21 Range/Units 12:30 08:06 Sodium 133 L 132 L (137-145) mmol/L Potassium 4.8 4.7 (3.5-5.1) mmol/L Chloride 94 L 92 L (98-107) mmol/L Carbon Dioxide 24 24 (22-30) mmol/L BUN 31 H 42 H (9-20) mg/dL Creatinine 4.07 H 5.24 H (0.66-1.25) mg/dL Glucose 116 H 172 H (74-99) mg/dL Calcium 9.9 9.8 (8.4-10.2) mg/dL AST 29 (17-59) U/L ALT 12 (4-49) U/L Alkaline Phosphatase 373 H (38-126) U/L Total Protein 7.0 (6.3-8.2) g/dL Albumin 3.7 (3.5-5.0) g/dL Calcium panel 02/19/21 02/20/21 Range/Units 12:30 08:06 Calcium 9.9 9.8 (8.4-10.2) mg/dL Albumin 3.7 (3.5-5.0) g/dL Pituitary panel 02/19/21 02/20/21 Range/Units 12:30 08:06 Sodium 133 L 132 L (137-145) mmol/L Potassium 4.8 4.7 (3.5-5.1) mmol/L Chloride 94 L 92 L (98-107) mmol/L Carbon Dioxide 24 24 (22-30) mmol/L BUN 31 H 42 H (9-20) mg/dL Creatinine 4.07 H 5.24 H (0.66-1.25) mg/dL Glucose 116 H 172 H (74-99) mg/dL Calcium 9.9 9.8 (8.4-10.2) mg/dL Adrenal panel 02/19/21 02/20/21 Range/Units 12:30 08:06 Sodium 133 L 132 L (137-145) mmol/L Potassium 4.8 4.7 (3.5-5.1) mmol/L Chloride 94 L 92 L (98-107) mmol/L Carbon Dioxide 24 24 (22-30) mmol/L BUN 31 H 42 H (9-20) mg/dL Creatinine 4.07 H 5.24 H (0.66-1.25) mg/dL Glucose 116 H 172 H (74-99) mg/dL Calcium 9.9 9.8 (8.4-10.2) mg/dL Total Bilirubin 3.0 H (0.2-1.3) mg/dL AST 29 (17-59) U/L ALT 12 (4-49) U/L Alkaline Phosphatase 373 H (38-126) U/L Total Protein 7.0 (6.3-8.2) g/dL Albumin 3.7 (3.5-5.0) g/dL Assessment and Plan Assessment: Infected left lower extremity transmetatarsal indications a wound [place] 5 peripheral arterial disease Previous femoral to posterior tibial bypass End-stage renal disease on dialysis Plan: We'll plan to take the patient to the operating room for evaluation and debridement tomorrow. Also will obtain office records and possible repeat Doppler of the bypass graft to evaluate for patency.
[2021-02-20] MEDS ORDERED: VANCOMYCIN 1,500 MG in SODIUM CHLORIDE 0.9% 250 ML IVPB ONE (14:00)
--- NOTE | 2021-02-20 16:00 | P.PN ---
Subjective Progress Note Date: 02/20/21 No new complaints. Seen by ID, added flagyl. Seen by vascular, debridement tomorrow. Seen by nephrology, iHD tomorrow. Objective - Vital Signs Vital signs: Vital Signs Temp 98.1 F 02/20/21 13:48 Pulse 74 02/20/21 13:48 Resp 16 02/20/21 13:48 BP 119/73 02/20/21 13:48 Pulse Ox 100 02/20/21 13:48 Intake & Output 02/19/21 02/20/21 02/20/21 18:59 06:59 18:59 Weight 90.718 kg Other: # Voids 2 - Exam Gen: awake, alert HEENT: normocephalic, atraumatic, good hearing acuity, moist mucous membranes Resp: good air exchange, breathing comfortably with no accessory muscle use, clear to auscultation bilaterally CVS: good distal perfusion x 4, regular rate and rhythm without murmurs GI: soft, NTTP, ND : no SPT, no CVAT, guillen catheter not present MSK: Left TMA with early wound dehiscence, pustular drainage, surrounding erythema with hyperesthesia Neuro: non-focal, moving all extremities Psych: cooperative, euthymic mood - Labs CBC & Chem 7: 02/20/21 08:06 02/20/21 08:06 Labs: Abnormal Lab Results - Last 24 Hours (Table) 02/20/21 02/20/21 02/20/21 Range/Units 06:56 08:06 08:06 RBC 4.25 L (4.30-5.90) m/uL Hgb 12.4 L (13.0-17.5) gm/dL MCHC 30.3 L (31.0-37.0) g/dL RDW 16.6 H (11.5-15.5) % Lymphocytes # 0.6 L (1.0-4.8) k/uL Sodium 132 L (137-145) mmol/L Chloride 92 L (98-107) mmol/L BUN 42 H (9-20) mg/dL Creatinine 5.24 H (0.66-1.25) mg/dL Glucose 172 H (74-99) mg/dL POC Glucose (mg/dL) 100 H (75-99) mg/dL Magnesium 2.4 H (1.6-2.3) mg/dL C-Reactive Protein 6.6 H (<1.0) mg/dL 02/20/21 Range/Units 11:36 RBC (4.30-5.90) m/uL Hgb (13.0-17.5) gm/dL MCHC (31.0-37.0) g/dL RDW (11.5-15.5) % Lymphocytes # (1.0-4.8) k/uL Sodium (137-145) mmol/L Chloride (98-107) mmol/L BUN (9-20) mg/dL Creatinine (0.66-1.25) mg/dL Glucose (74-99) mg/dL POC Glucose (mg/dL) 178 H (75-99) mg/dL Magnesium (1.6-2.3) mg/dL C-Reactive Protein (<1.0) mg/dL Microbiology - Last 24 Hours (Table) 02/19/21 15:46 Gram Stain - Preliminary Foot - Left Wound Culture - Preliminary Assessment and Plan Assessment: Diabetic foot infection Left TMA Diabetic neuropathy -Admit inpatient -Infectious disease consult -Wound care consult -Vascular surgery consult -Vancomycin, cefepime -Follow wound cultures -ESR, CRP -[place] when necessary -Continue Lyrica Diabetes type 2 Diabetic nephropathy CKD stage IV -Avoid nephrotoxins -Renally dosed medication -Nephrology consult -Continue Renvela, bicarb, Midodrine -Low-dose sliding scale insulin Hypertension Hyperlipidemia History of CAD Gout Restless leg syndrome -Home medications reviewed and reconciled Patient is full code DVT prophylaxis with heparin 3 times a day
[2021-02-20 16:30] LABS: Glucose,Whole Blood 135 mg/dL (75-99)
--- NOTE | 2021-02-20 17:00 | PN ---
PROGRESS NOTE DATE OF SERVICE: 02/20/2021 REASON FOR FOLLOWUP: Left diabetic foot infection. INTERVAL HISTORY: The patient is afebrile. He is breathing comfortably. Denies having any chest pain, shortness of breath or cough. No abdominal pain or any worsening pain to the left foot. PHYSICAL EXAMINATION: Blood pressure 119/73, pulse of 74, temperature 98.1. He is 100% on room air. General description is a middle-aged male lying in bed in no distress. RESPIRATORY SYSTEM: Unlabored breathing. Clear to auscultation anteriorly. HEART: S1, S2. Regular rate and rhythm. ABDOMEN: Soft. No tenderness. Left foot is currently dressed. No obvious drainage on the dressing. LABS: Hemoglobin is 12.4, white count 7.7, creatinine 5.24. DIAGNOSTIC IMPRESSION AND PLAN: Patient with a left diabetic foot wound with secondary cellulitis. Waiting for possible surgical debridement in the morning. Patient is covered cefepime, vancomycin and Flagyl; to continue, adjusting it further based on the culture report. Continue with supportive care. MMODL / IJN: [id number] /
[2021-02-20 20:21] LABS: Glucose,Whole Blood 203 mg/dL (75-99)
[2021-02-20] MEDS: ATORVASTATIN 80 MG TAB PO SCH (20:22)
[2021-02-20] MEDS: FOLIC ACID-VIT B COMPLEX-VIT C 1 CAP PO SCH (20:22)
[2021-02-20] MEDS: CLOPIDOGREL 75 MG TAB PO SCH (20:22)
[2021-02-21] MEDS: CEFEPIME 1 GM in SODIUM CHLORIDE 0.9% 50 ML IVPB SCH ×2 (04:46→16:51)
[2021-02-21 07:02] LABS: Glucose,Whole Blood 99 mg/dL (75-99)
[2021-02-21] MEDS: INSULIN ASPART (NovoLOG) 100 UNIT/ML VIAL SQ SCH ×3 (07:09→16:51)
[2021-02-21] MEDS: SEVELAMER 800 MG TAB PO SCH ×3 (07:10→16:51)
[2021-02-21] MEDS: FUROSEMIDE 20 MG TAB PO SCH (07:18)
[2021-02-21] MEDS: FLUoxetine HCL 20 MG CAP PO SCH (07:18)
[2021-02-21] MEDS: ASPIRIN 81 MG PO SCH (07:18)
[2021-02-21] MEDS: allopurinoL 100 MG TAB PO SCH (07:18)
[2021-02-21] MEDS: metroNIDAZOLE 500 MG TAB PO SCH ×3 (07:18→22:10)
[2021-02-21] MEDS: PREGABALIN 25 MG CAP PO SCH (07:18)
[2021-02-21] MEDS: SODIUM BICARBONATE TAB 650 MG TAB PO SCH ×2 (07:18→16:51)
[2021-02-21] MEDS: METOPROLOL SUCCINATE (ER) 25 MG TAB.ER.24H PO SCH (07:18)
[2021-02-21] MEDS: HYDROcodone/APAP 5-325MG 1 EACH TAB PO PRN (07:19)
[2021-02-21] MEDS ORDERED: CLINDAMYCIN 600 MG in DEXTROSE 5% IN WATER 50 ML IVPB STA ×2 (08:13)
[2021-02-21] MEDS ORDERED: ROCURONIUM 10 MG/ML (5 ML VIAL) IV ONE (08:30)
[2021-02-21] MEDS ORDERED: PROPOFOL 10 MG/ML 20 ML VIAL IV ONE (08:30)
[2021-02-21] MEDS ORDERED: fentaNYL (PF) 50 MCG/ML 2 ML AMP ONE (08:30)
[2021-02-21] MEDS ORDERED: MIDAZOLAM 2 MG/2 ML VIAL ONE (08:30)
[2021-02-21] MEDS ORDERED: KETAMINE 10 MG/ML 20 ML VIAL ONE (08:30)
[2021-02-21] MEDS ORDERED: SODIUM CHLORIDE 0.9% 1,000 ML IV ONE (08:43)
--- NOTE | 2021-02-21 09:19 | P.OP ---
Date of Procedure: 02/21/21 Description of Procedure: Preoperative diagnosis: [Left lower extremity wound, peripheral arterial disease] Postoperative diagnosis: Same Procedure: [Sharp excisional debridement of left foot wound 7 x 5.2 x 2.5 to bone Placement of wound VAC] Surgeon: Reyna Macias D.O. EBL: [Less than 10 mL] IV fluids: [See records] Urine output: [Not measured] Drains: [None] Complications: [None immediately apparent] Condition: [Stable to recovery] Operative indication and findings: [Patient is a 65-year-old male with a nonhealing left lower extremity wound that has worsened recently. He was in the hospital for foul smell and was recommended to undergo operative debridement. Risks and benefits were discussed. He seemingly understood and was willing to proceed.] Procedure in detail: [Patient was taken to the operative suite and placed in supine position. The left lower extremity was prepped and draped in usual sterile fashion. A preprocedure timeout was performed, all parties were in agreement. The wound was sharply debrided with curet as well as scalpel and the necrotic portions of tissue were excised. This did tunnel to the plantar portion of the foot and the overall wound measurements upon completion were 7 x 5.2 x 2.5 cm to the level of bone. There was foul-smelling necrotic tissue and a culture was taken. There is an irrigated with Dakin solution and a wound VAC was placed. The patient was allowed awaken from anesthesia and transferred to recovery. He will need aggressive ongoing wound care]
[2021-02-21 09:44] LABS: Glucose,Whole Blood 87 mg/dL (75-99)
[2021-02-21] MEDS: HEPARIN SODIUM,PORCINE/PF 5,000 UNIT/0.5 ML SYRINGE SQ SCH ×3 (10:13→23:33)
--- NOTE | 2021-02-21 10:28 | P.PN ---
Subjective Patient is seen in follow-up for end-stage renal disease. He is maintained on hemodialysis on Monday schedule. Underwent debridement with wound VAC placement on the left foot. No chest pain or shortness of breath. Vital signs are stable. General: The patient appeared well nourished and normally developed. HEENT: Head exam is unremarkable. LUNGS: Breath sounds decreased. HEART: Rate and Rhythm are regular. ABDOMEN: Soft, no distention. EXTREMITITES: No drainage noted. Left foot wound VAC noted. No edema. Objective - Vital Signs Vital signs: Vital Signs Temp 96.9 F L 02/21/21 09:26 Pulse 64 02/21/21 09:51 Resp 16 02/21/21 09:51 BP 103/72 02/21/21 09:51 Pulse Ox 97 02/21/21 09:51 Intake & Output 02/20/21 02/21/21 02/21/21 18:59 06:59 18:59 Intake Total 480 204 Output Total 5 Balance 480 199 Intake: IV 204 Oral 480 Output: Estimated Blood Loss 5 - Labs CBC & Chem 7: 02/20/21 08:06 02/20/21 08:06 Labs: Abnormal Lab Results - Last 24 Hours (Table) 02/20/21 02/20/21 02/20/21 Range/Units 11:36 16:28 20:19 POC Glucose (mg/dL) 178 H 135 H 203 H (75-99) mg/dL Microbiology - Last 24 Hours (Table) 02/19/21 15:46 Gram Stain - Preliminary Foot - Left Wound Culture - Preliminary Assessment and Plan Plan: Assessment: 1. End-stage renal disease maintained on hemodialysis on Monday schedule via AV fistula. 2. Left foot wound maintained on antibiotics. Status post debridement with wound VAC placement this morning. 3. Chronic kidney disease mineral bone disease maintained on Renvela. 4. Chronic hypotension maintained on midodrine. Plan: Hemodialysis today as he did not get a treatment yesterday.
[2021-02-21 11:31] LABS: Glucose,Whole Blood 86 mg/dL (75-99)
--- NOTE | 2021-02-21 14:22 | P.PN ---
Subjective Progress Note Date: 02/21/21 No new complaints, doing well postop. Has a wound VAC in place. Pending cultures Objective - Vital Signs Vital signs: Vital Signs Temp 96.9 F L 02/21/21 09:26 Pulse 61 02/21/21 12:23 Resp 16 02/21/21 09:51 BP 99/62 02/21/21 12:23 Pulse Ox 97 02/21/21 12:23 Intake & Output 02/20/21 02/21/21 02/21/21 18:59 06:59 18:59 Intake Total 480 204 Output Total 5 Balance 480 199 Intake: IV 204 Oral 480 Output: Estimated Blood Loss 5 - Exam Gen: awake, alert HEENT: normocephalic, atraumatic, good hearing acuity, moist mucous membranes Resp: good air exchange, breathing comfortably with no accessory muscle use, clear to auscultation bilaterally CVS: good distal perfusion x 4, regular rate and rhythm without murmurs GI: soft, NTTP, ND : no SPT, no CVAT, guillen catheter not present MSK: Left TMA with wound VAC Neuro: non-focal, moving all extremities Psych: cooperative, euthymic mood - Labs CBC & Chem 7: 02/20/21 08:06 02/20/21 08:06 Labs: Abnormal Lab Results - Last 24 Hours (Table) 02/20/21 02/20/21 Range/Units 16:28 20:19 POC Glucose (mg/dL) 135 H 203 H (75-99) mg/dL Assessment and Plan Assessment: Diabetic foot infection Left TMA Diabetic neuropathy -Admit inpatient -Infectious disease consult -Wound care consult -Vascular surgery consult -Vancomycin, cefepime -Follow wound cultures -ESR, CRP -[place] when necessary -Continue Lyrica Diabetes type 2 Diabetic nephropathy CKD stage IV -Avoid nephrotoxins -Renally dosed medication -Nephrology consult -Continue Renvela, bicarb, Midodrine -Low-dose sliding scale insulin Hypertension Hyperlipidemia History of CAD Gout Restless leg syndrome -Home medications reviewed and reconciled Patient is full code DVT prophylaxis with heparin 3 times a day
[2021-02-21 16:40] LABS: Glucose,Whole Blood 151 mg/dL (75-99)
[2021-02-21] MEDS: MIDODRINE 5 MG TAB PO PRN (18:01)
[2021-02-21 20:25] LABS: Glucose,Whole Blood 114 mg/dL (75-99)
[2021-02-21] MEDS ORDERED: VANCOMYCIN 1,500 MG in SODIUM CHLORIDE 0.9% 250 ML IVPB ONE (21:00)
[2021-02-21] MEDS: ATORVASTATIN 80 MG TAB PO SCH (22:09)
[2021-02-21] MEDS: CLOPIDOGREL 75 MG TAB PO SCH (22:09)
[2021-02-21] MEDS: FOLIC ACID-VIT B COMPLEX-VIT C 1 CAP PO SCH (22:10)
--- NOTE | 2021-02-22 03:01 | PN ---
PROGRESS NOTE DATE OF SERVICE: 02/21/2021 REASON FOR FOLLOWUP: Left diabetic foot infection. INTERVAL HISTORY: Patient was taken to the OR this morning in this patient who is status post sharp excisional debridement of his left foot wound to the bone and placement of the wound VAC. The patient tolerated the procedure. The patient denies having any chest pain, shortness of breath or cough. No abdominal pain. No diarrhea. PHYSICAL EXAMINATION: Blood pressure 99/62 with a pulse of 71, temperature 96.9. He is 97% on room air. General description is a middle-aged male lying in bed in no distress. Respiratory system: Unlabored breathing. Clear to auscultation anteriorly. Heart S1, S2. Regular rate and rhythm. Abdomen: Soft. No tenderness. Left foot is currently packed and covered with a wound VAC. DIAGNOSTIC IMPRESSION AND PLAN: Patient with left diabetic foot wound status post debridement with extension down to the wound, concern for underlying osteomyelitis. Wound cultures will be followed. The patient is currently covered with cefepime and vancomycin along with oral Flagyl. Discharge antibiotic on the basis of culture report. Continue supportive care. MMODL / IJN: [id number] /
[2021-02-22] MEDS: CEFEPIME 1 GM in SODIUM CHLORIDE 0.9% 50 ML IVPB SCH ×2 (05:31→18:26)
[2021-02-22] MEDS: INSULIN ASPART (NovoLOG) 100 UNIT/ML VIAL SQ SCH ×2 (07:20→12:25)
[2021-02-22 07:21] LABS: Glucose,Whole Blood 91 mg/dL (75-99)
[2021-02-22] MEDS: HEPARIN SODIUM,PORCINE/PF 5,000 UNIT/0.5 ML SYRINGE SQ SCH ×3 (08:28→22:45)
[2021-02-22] MEDS: SEVELAMER 800 MG TAB PO SCH ×3 (08:29→18:27)
[2021-02-22] MEDS: ASPIRIN 81 MG PO SCH (08:29)
[2021-02-22] MEDS: allopurinoL 100 MG TAB PO SCH (08:30)
[2021-02-22] MEDS: FLUoxetine HCL 20 MG CAP PO SCH (08:30)
[2021-02-22] MEDS: METOPROLOL SUCCINATE (ER) 25 MG TAB.ER.24H PO SCH (08:30)
[2021-02-22] MEDS: FUROSEMIDE 20 MG TAB PO SCH (08:30)
[2021-02-22] MEDS: PREGABALIN 25 MG CAP PO SCH (08:30)
[2021-02-22] MEDS: FOLIC ACID-VIT B COMPLEX-VIT C 1 CAP PO SCH (08:30)
[2021-02-22] MEDS: SODIUM BICARBONATE TAB 650 MG TAB PO SCH ×2 (08:30→18:27)
[2021-02-22] MEDS: metroNIDAZOLE 500 MG TAB PO SCH ×3 (08:30→22:45)
--- NOTE | 2021-02-22 08:30 | P.CONS ---
History of Present Illness - Reason for Consult Consult date: 02/22/21 wound care - History of Present Illness This is a 65-year-old patient known to the wound care center with a nonhealing ulceration to the left metatarsal indication site. Patient has been following in the wound care center for multiple weeks. However 2 weeks ago patient stated that he had hit his foot causing some ecchymosis to the site. Last week patient was assessed and the ulceration had worsened a deep tissue culture was obtained at that time however no organisms were found. On Monday the patient's home care nurse called stating that the ulceration has worsened more resulting in sloughing and decline of site. Patient was instructed to go to the emergency room for evaluation. Patient was seen by Dr. Macias and underwent surgical debridement with a ulceration measuring now 7 x 5.2 x 2.5 exposure to bone. P atient has negative pressure wound VAC in place. Periwound still shows erythema. Patient is currently on IV antibiotics. Review Of Systems: Constitutional: No fever, no chills, no night sweats. No weight change. No weakness, fatigue or lethargy. No daytime sleepiness. Integumentary:reports wounds, no lesions. No rash or pruritus. No unusual bruising. No change in hair or nails. Physical exam: General Appearance: Alert, cooperative, no distress, appears stated age. Skin: See HPI all other Skin color, texture, tugor normal, no rashes or lesions. Neurologic: Alert oriented x3 Assessment: 1. Nonhealing ulceration with bone exposure without necrosis 2. Diabetic foot ulcer 3. Atherosclerosis of [place] arteries of left leg with ulceration of other part of foot Plan: 1.Negative pressure wound VAC to the left foot. Utilizing black foam. When patient is discharged apply absorptive silver, saline moistened gauze, dry gauze rolled gauze and secure puberty. Patient will then continue with home care to restart the wound VAC. At home wound VAC orders negative pressure wound VAC at 125 mmHg change Monday and Monday utilize black foam. 2. Patient will follow-up in the wound care center next MondayMarch 01 at 8:00 Thank you for the consultation any questions please contact the wound care center DNP note has been reviewed and discussed with Dr. Fuentes and the impression and plan of care has been directed as dictated. 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 History of Any Multi-Drug Resistant Organisms: None Reported Past Surgical History: Coronary Bypass/CABG, Heart Catheterization, Orthopedic Surgery Additional Past Surgical History / Comment(s): Recent transplant biopsy, vein mapping last week at [facility] in preparation for new fistula, meningioma benign brain tumor removed at [facility], (rt) kidney transplant 2013 at [facility], 5 vessel cabg, colonoscopy-clear, lt knee arthroscopy, rt arm fistulas with R upper arm fistula removed, forehead skin cancer removal. lef ttoe amputation Past Anesthesia/Blood Transfusion Reactions: Motion Sickness Past Psychological History: No Psychological Hx Reported Smoking Status: Former smoker - Past Family History Father Family Medical History: Hypertension, Myocardial Infarction (HI), Renal Disease Additional Family Medical History / Comment(s): Pt states his father had received blood, had a reaction-a HI and at the age of 40yrs. Mother Family Medical History: Dementia Additional Family Medical History / Comment(s): Mother is 82 yrs old. Sister(s) Family Medical History: Hyperlipidemia, Renal Disease Additional Family Medical History / Comment(s): Sister is on hemodialysis. Medications and Allergies Home Medications Medication Instructions Recorded Confirmed Type allopurinoL [Zyloprim] 100 mg PO DAILY@0800 05/16/16 02/19/21 History FLUoxetine HCL [PROzac] 20 mg PO DAILY@0800 09/15/20 02/19/21 History Metoprolol Succinate [Toprol XL] 25 mg PO DAILY 09/15/20 02/19/21 History Aspirin 81 mg PO SUMOWEFR 10/14/20 02/19/21 History Clopidogrel [Plavix] 75 mg PO HS 10/14/20 02/19/21 History Sevelamer [Renvela] 1,600 mg PO AC-TID@08,12,17 10/14/20 02/19/21 History Sodium Bicarbonate Tab 650 mg PO BID@0800,1700 10/14/20 02/19/21 History glipiZIDE [Glucotrol XL] 2.5 mg PO DAILY 10/14/20 02/19/21 History Atorvastatin [Lipitor] 80 mg PO HS tab 10/19/20 02/19/21 Rx HYDROcodone/APAP 5-325MG [[place] 1 tab PO Q6HR PRN #12 tab 10/19/20 02/19/21 Rx 5-325] Midodrine [ProAmatine] 10 mg PO AC-TID PRN tab 10/19/20 02/19/21 Rx Pregabalin [Lyrica] 25 mg PO DAILY@0800 #3 cap 10/19/20 02/19/21 Rx Furosemide [Lasix] 20 mg PO DAILY 02/19/21 02/19/21 History Nepro-[place] 1 tab PO HS 02/19/21 02/19/21 History Potassium Chloride 10 meq PO DAILY 02/19/21 02/19/21 History rOPINIRole HCL [Requip] 1 mg PO HS 02/19/21 02/19/21 History Allergies Allergy/AdvReac Type Severity Reaction Status Date / Time No Known Allergies Allergy Verified 02/19/21 13:17 Physical Exam Vitals: Vital Signs Temp Pulse Resp BP Pulse Ox 02/22/21 08:00 97.3 F L 74 18 108/61 96 02/22/21 03:12 97.4 F L 77 17 112/62 94 L 02/21/21 12:23 61 99/62 97 02/21/21 11:53 65 97/59 89 L 02/21/21 11:23 67 95/59 94 L 02/21/21 10:53 64 89/45 91 L 02/21/21 10:39 69 96/50 97 02/21/21 10:24 61 88/45 92 L 02/21/21 10:08 63 93/54 93 L 02/21/21 09:51 64 16 103/72 97 02/21/21 09:45 64 14 85/46 100 02/21/21 09:30 65 14 85/46 100 02/21/21 09:26 96.9 F L 68 16 93/55 100 Intake and Output 02/21/21 02/22/21 02/22/21 22:59 06:59 14:59 Intake Total 50 350 Output Total 3000 0 Balance -2950 350 0 Intake: Intake, IV Titration 50 350 Amount Cefepime 1 gm In Sodium 50 100 Chloride 0.9% 50 ml @ 100 mls/hr IVPB Q12H [facility] Rx# :[id number] Vancomycin 1,500 mg In 250 Sodium Chloride 0.9% 250 ml @ 125 mls/hr IVPB ONCE ONE Rx#:[id number] Output: Urine 0 Hemodialysis 3000 Results CBC & Chem 7: 02/20/21 08:06 02/20/21 08:06 Labs: Abnormal Lab Results - Last 24 Hours (Table) 02/21/21 02/21/21 Range/Units 16:38 20:23 POC Glucose (mg/dL) 151 H 114 H (75-99) mg/dL Microbiology - Last 24 Hours (Table) 02/21/21 09:05 Gram Stain - Preliminary Foot - Left Wound Culture - Preliminary 02/19/21 15:46 Gram Stain - Final Foot - Left Wound Culture - Final 02/21/21 09:05 Anaerobic Culture - Preliminary Foot - Left Assessment and Plan (1) Non-healing ulcer of left foot with necrosis of bone Current Visit: No Status: Acute Code(s): L97.524 - NON-PRS CHRONIC ULCER OTH PRT LEFT FOOT W NECROSIS OF BONE SNOMED Code(s): 046957625 (2) Atherosclerosis of [place] arteries of left leg with ulceration of other part of foot Current Visit: Yes Status: Acute Code(s): I70.245 - ATHSCL [place] ARTERIES OF LEFT LEG W ULCERATION OTH PRT FOOT SNOMED Code(s): 223541450 (3) Diabetic foot ulcer Current Visit: Yes Status: Acute Code(s): E11.621 - TYPE 2 DIABETES MELLITUS WITH FOOT ULCER; L97.509 - NON-PRESSURE CHRONIC ULCER OTH PRT UNSP FOOT W UNSP SEVERITY SNOMED Code(s): 439493739
--- NOTE | 2021-02-22 09:25 | P.PN ---
Subjective Patient is seen in follow-up for end-stage renal disease. He is maintained on hemodialysis on Monday schedule. Underwent debridement with wound VAC placement on the left foot this admission. No chest pain or shortness of breath. No problems with dialysis. Vital signs are stable. General: The patient appeared well nourished and normally developed. HEENT: Head exam is unremarkable. LUNGS: Breath sounds decreased. HEART: Rate and Rhythm are regular. ABDOMEN: Soft, no distention. EXTREMITITES: No drainage noted. Left foot wound VAC noted. No edema. Objective - Vital Signs Vital signs: Vital Signs Temp 97.3 F L 02/22/21 08:00 Pulse 74 02/22/21 08:00 Resp 18 02/22/21 08:00 BP 108/61 02/22/21 08:00 Pulse Ox 96 02/22/21 08:00 Intake & Output 02/21/21 02/22/21 02/22/21 18:59 06:59 18:59 Intake Total 254 350 Output Total 5 3000 0 Balance 249 -2650 0 Intake: IV 204 Intake, IV Titration 50 350 Amount Cefepime 1 gm In Sodium 50 100 Chloride 0.9% 50 ml @ 100 mls/hr IVPB Q12H [facility] Rx# :[id number] Vancomycin 1,500 mg In 250 Sodium Chloride 0.9% 250 ml @ 125 mls/hr IVPB ONCE ONE Rx#:[id number] Output: Urine 0 Hemodialysis 3000 Estimated Blood Loss 5 - Labs CBC & Chem 7: 02/20/21 08:06 02/20/21 08:06 Labs: Abnormal Lab Results - Last 24 Hours (Table) 02/21/21 02/21/21 Range/Units 16:38 20:23 POC Glucose (mg/dL) 151 H 114 H (75-99) mg/dL Microbiology - Last 24 Hours (Table) 02/21/21 09:05 Gram Stain - Preliminary Foot - Left Wound Culture - Preliminary 02/19/21 15:46 Gram Stain - Final Foot - Left Wound Culture - Final 02/21/21 09:05 Anaerobic Culture - Preliminary Foot - Left Assessment and Plan Plan: Assessment: 1. End-stage renal disease maintained on hemodialysis on Monday schedule via AV fistula. 2. Left foot wound maintained on antibiotics. Status post debridement with wound VAC placement admission. 3. Chronic kidney disease mineral bone disease maintained on Renvela. 4. Chronic hypotension maintained on midodrine. Plan: Hemodialysis tomorrow.
[2021-02-22 12:01] LABS: Glucose,Whole Blood 166 mg/dL (75-99)
--- NOTE | 2021-02-22 15:16 | P.PN ---
Subjective Progress Note Date: 02/22/21 Pt doing well today, pending micro. Wound vac in place. Ongoing IV abx. Wound care consult pending. Objective - Vital Signs Vital signs: Vital Signs Temp 97.3 F L 02/22/21 08:00 Pulse 74 02/22/21 08:00 Resp 18 02/22/21 08:00 BP 108/61 02/22/21 08:00 Pulse Ox 96 02/22/21 08:00 Intake & Output 02/21/21 02/22/21 02/22/21 18:59 06:59 18:59 Intake Total 254 350 Output Total 5 3000 0 Balance 249 -2650 0 Intake: IV 204 Intake, IV Titration 50 350 Amount Cefepime 1 gm In Sodium 50 100 Chloride 0.9% 50 ml @ 100 mls/hr IVPB Q12H [facility] Rx# :[id number] Vancomycin 1,500 mg In 250 Sodium Chloride 0.9% 250 ml @ 125 mls/hr IVPB ONCE ONE Rx#:[id number] Output: Urine 0 Hemodialysis 3000 Estimated Blood Loss 5 - Exam Gen: awake, alert HEENT: normocephalic, atraumatic, good hearing acuity, moist mucous membranes Resp: good air exchange, breathing comfortably with no accessory muscle use, clear to auscultation bilaterally CVS: good distal perfusion x 4, regular rate and rhythm without murmurs GI: soft, NTTP, ND : no SPT, no CVAT, guillen catheter not present MSK: Left TMA with wound VAC Neuro: non-focal, moving all extremities Psych: cooperative, euthymic mood - Labs CBC & Chem 7: 02/20/21 08:06 02/20/21 08:06 Labs: Abnormal Lab Results - Last 24 Hours (Table) 02/21/21 02/21/21 02/22/21 Range/Units 16:38 20:23 12:00 POC Glucose (mg/dL) 151 H 114 H 166 H (75-99) mg/dL Microbiology - Last 24 Hours (Table) 02/21/21 09:05 Gram Stain - Preliminary Foot - Left Wound Culture - Preliminary 02/19/21 15:46 Gram Stain - Final Foot - Left Wound Culture - Final 02/21/21 09:05 Anaerobic Culture - Preliminary Foot - Left Assessment and Plan Assessment: Diabetic foot infection Left TMA Diabetic neuropathy -Admit inpatient -Infectious disease consult -Wound care consult -Vascular surgery consult -Vancomycin, cefepime -Follow wound cultures -ESR, CRP -[place] when necessary -Continue Lyrica Diabetes type 2 Diabetic nephropathy CKD stage IV -Avoid nephrotoxins -Renally dosed medication -Nephrology consult -Continue Renvela, bicarb, Midodrine -Low-dose sliding scale insulin Hypertension Hyperlipidemia History of CAD Gout Restless leg syndrome -Home medications reviewed and reconciled Patient is full code DVT prophylaxis with heparin 3 times a day
--- NOTE | 2021-02-22 16:27 | P.PN ---
Subjective Progress Note Date: 02/22/21 The patient was seen and examined lying in bed. He is status post op day #1 for excision and debridement of left foot. The patient has a history of peripheral arterial disease and has previously undergone a femoral to tibial bypass at the ankle. Patient states he has not seen vascular surgery in the office but has only followed with the wound care clinic. Patient states overall no changes. Pain is well controlled. He denies any fevers or chills. He is been afebrile. Objective - Vital Signs Vital signs: Vital Signs Temp 97.3 F L 02/22/21 08:00 Pulse 74 02/22/21 08:00 Resp 18 02/22/21 08:00 BP 108/61 02/22/21 08:00 Pulse Ox 96 02/22/21 08:00 Intake & Output 02/21/21 02/22/21 02/22/21 18:59 06:59 18:59 Intake Total 254 350 Output Total 5 3000 0 Balance 249 -2650 0 Intake: IV 204 Intake, IV Titration 50 350 Amount Cefepime 1 gm In Sodium 50 100 Chloride 0.9% 50 ml @ 100 mls/hr IVPB Q12H [facility] Rx# :[id number] Vancomycin 1,500 mg In 250 Sodium Chloride 0.9% 250 ml @ 125 mls/hr IVPB ONCE ONE Rx#:[id number] Output: Urine 0 Hemodialysis 3000 Estimated Blood Loss 5 - Exam General appearance: The patient is alert, oriented, in no acute distress. HET: Head is normocephalic and atraumatic. Pupils are equal and reactive. Oropharynx is clear without lesions. Extremities: Left lower extremity transmetatarsal amputation site with wound VAC, intact with good suction. Mild erythema. Neurological: No focal deficits. Strength and sensation are grossly intact. - Labs CBC & Chem 7: 02/20/21 08:06 02/20/21 08:06 Labs: Abnormal Lab Results - Last 24 Hours (Table) 02/21/21 02/21/21 Range/Units 16:38 20:23 POC Glucose (mg/dL) 151 H 114 H (75-99) mg/dL Microbiology - Last 24 Hours (Table) 02/21/21 09:05 Gram Stain - Preliminary Foot - Left Wound Culture - Preliminary 02/19/21 15:46 Gram Stain - Final Foot - Left Wound Culture - Final 02/21/21 09:05 Anaerobic Culture - Preliminary Foot - Left Assessment and Plan Assessment: 1. Postop day #1 left foot debridement with wound VAC placement 2. Infected left lower extremity transmetatarsal wound 3. [place] 5 peripheral arterial disease 4. Previous femoral to posterior tibial bypass 5. End-stage renal disease on dialysis Plan: 1. Continue wound VAC 2. Continue IV antibiotics per recommendations from infectious disease 3. Consult Physical therapy 4. Patient is cleared by vascular surgery for discharge once otherwise medically stable 5. Discussed with patient importance of outpatient follow-up with vascular surgery as well as wound care clinic The impression and plan of care has been dictated as directed. I performed a history and examination of this patient, discussed the same with the dictator. I agree with the dictator's note ,documented as a scribe. Any additional findings or plans will be noted.
[2021-02-22 16:57] LABS: Glucose,Whole Blood 75 mg/dL (75-99)
[2021-02-22 20:49] LABS: Glucose,Whole Blood 153 mg/dL (75-99)
[2021-02-22 22:39] LABS: Glucose,Whole Blood 131 mg/dL (75-99)
[2021-02-22] MEDS: ATORVASTATIN 80 MG TAB PO SCH (22:45)
[2021-02-22] MEDS: CLOPIDOGREL 75 MG TAB PO SCH (22:45)
[2021-02-23] MEDS: HYDROcodone/APAP 5-325MG 1 EACH TAB PO PRN ×2 (06:21→11:22)
[2021-02-23] MEDS: INSULIN ASPART (NovoLOG) 100 UNIT/ML VIAL SQ SCH ×4 (07:23→17:05)
[2021-02-23 07:27] LABS: Glucose,Whole Blood 95 mg/dL (75-99)
[2021-02-23] MEDS: metroNIDAZOLE 500 MG TAB PO SCH ×3 (08:12→21:42)
[2021-02-23] MEDS: METOPROLOL SUCCINATE (ER) 25 MG TAB.ER.24H PO SCH (08:12)
[2021-02-23] MEDS: allopurinoL 100 MG TAB PO SCH (08:12)
[2021-02-23] MEDS: PREGABALIN 25 MG CAP PO SCH (08:12)
[2021-02-23] MEDS: FLUoxetine HCL 20 MG CAP PO SCH (08:12)
[2021-02-23] MEDS: SODIUM BICARBONATE TAB 650 MG TAB PO SCH ×2 (08:12→16:15)
[2021-02-23] MEDS: FUROSEMIDE 20 MG TAB PO SCH (08:12)
[2021-02-23] MEDS: HEPARIN SODIUM,PORCINE/PF 5,000 UNIT/0.5 ML SYRINGE SQ SCH ×2 (08:13→16:16)
[2021-02-23] MEDS: SEVELAMER 800 MG TAB PO SCH ×3 (08:13→16:15)
[2021-02-23] MEDS: CEFEPIME 1 GM in SODIUM CHLORIDE 0.9% 50 ML IVPB SCH ×2 (08:42→21:42)
--- NOTE | 2021-02-23 09:25 | P.PN ---
Subjective Patient is seen in follow-up for end-stage renal disease. He is maintained on hemodialysis on Monday schedule. Underwent debridement with wound VAC placement on the left foot this admission. No chest pain or shortness of breath. No problems with dialysis. No changes overnight. Vital signs are stable. General: The patient appeared well nourished and normally developed. HEENT: Head exam is unremarkable. LUNGS: Breath sounds decreased. HEART: Rate and Rhythm are regular. ABDOMEN: Soft, no distention. EXTREMITITES: No drainage noted. Left foot wound VAC noted. No edema. Objective - Vital Signs Vital signs: Vital Signs Temp 97.5 F L 02/23/21 06:45 Pulse 61 02/23/21 06:45 Resp 17 02/23/21 06:45 BP 103/58 02/23/21 06:45 Pulse Ox 100 02/23/21 06:45 Intake & Output 02/22/21 02/23/21 02/23/21 18:59 06:59 18:59 Intake Total 236 50 Output Total 0 Balance 236 50 Intake: Intake, IV Titration 50 Amount Cefepime 1 gm In Sodium 50 Chloride 0.9% 50 ml @ 100 mls/hr IVPB Q12H [facility] Rx# :[id number] Oral 236 Output: Urine 0 Other: # Voids 1 0 - Labs CBC & Chem 7: 02/20/21 08:06 02/23/21 06:55 Labs: Abnormal Lab Results - Last 24 Hours (Table) 02/22/21 02/22/21 02/22/21 Range/Units 12:00 20:48 22:35 Creatinine (0.66-1.25) mg/dL POC Glucose (mg/dL) 166 H 153 H 131 H (75-99) mg/dL 02/23/21 Range/Units 06:55 Creatinine 6.09 H (0.66-1.25) mg/dL POC Glucose (mg/dL) (75-99) mg/dL Microbiology - Last 24 Hours (Table) 02/21/21 09:05 Gram Stain - Preliminary Foot - Left Wound Culture - Preliminary Assessment and Plan Plan: Assessment: 1. End-stage renal disease maintained on hemodialysis on Monday schedule via AV fistula. 2. Left foot wound maintained on antibiotics. Status post debridement with wound VAC placement admission. 3. Chronic kidney disease mineral bone disease maintained on Renvela. 4. Chronic hypotension maintained on midodrine. Plan: Hemodialysis today. Possible discharge after dialysis today.
--- NOTE | 2021-02-23 11:28 | P.PN ---
Subjective Progress Note Date: 02/23/21 Pt doing well today, pending microbiology to determine abx as outpatient. Likely will need wound vac on d/c. Objective - Vital Signs Vital signs: Vital Signs Temp 97.5 F L 02/23/21 06:45 Pulse 61 02/23/21 06:45 Resp 17 02/23/21 08:00 BP 103/58 02/23/21 06:45 Pulse Ox 100 02/23/21 06:45 Intake & Output 02/22/21 02/23/21 02/23/21 18:59 06:59 18:59 Intake Total 236 50 Output Total 0 Balance 236 50 Intake: Intake, IV Titration 50 Amount Cefepime 1 gm In Sodium 50 Chloride 0.9% 50 ml @ 100 mls/hr IVPB Q12H [facility] Rx# :[id number] Oral 236 Output: Urine 0 Other: # Voids 1 0 - Exam Gen: awake, alert HEENT: normocephalic, atraumatic, good hearing acuity, moist mucous membranes Resp: good air exchange, breathing comfortably with no accessory muscle use, clear to auscultation bilaterally CVS: good distal perfusion x 4, regular rate and rhythm without murmurs GI: soft, NTTP, ND : no SPT, no CVAT, guillen catheter not present MSK: Left TMA with wound VAC Neuro: non-focal, moving all extremities Psych: cooperative, euthymic mood - Labs CBC & Chem 7: 02/20/21 08:06 02/23/21 06:55 Labs: Abnormal Lab Results - Last 24 Hours (Table) 02/22/21 02/22/21 02/22/21 Range/Units 12:00 20:48 22:35 Creatinine (0.66-1.25) mg/dL POC Glucose (mg/dL) 166 H 153 H 131 H (75-99) mg/dL 02/23/21 Range/Units 06:55 Creatinine 6.09 H (0.66-1.25) mg/dL POC Glucose (mg/dL) (75-99) mg/dL Microbiology - Last 24 Hours (Table) 02/21/21 09:05 Gram Stain - Preliminary Foot - Left Wound Culture - Preliminary Assessment and Plan Assessment: Diabetic foot infection Left TMA Diabetic neuropathy -Admit inpatient -Infectious disease consult -Wound care consult -Vascular surgery consult -Vancomycin, cefepime -Follow wound cultures, OR cultures -ESR, CRP -[place] when necessary -Continue Lyrica -patient may need wound vac on discharge Diabetes type 2 Diabetic nephropathy CKD stage IV -Avoid nephrotoxins -Renally dosed medication -Nephrology consult -Continue Renvela, bicarb, Midodrine -Low-dose sliding scale insulin Hypertension Hyperlipidemia History of CAD Gout Restless leg syndrome -Home medications reviewed and reconciled Patient is full code DVT prophylaxis with heparin 3 times a day
[2021-02-23 11:44] LABS: Glucose,Whole Blood 144 mg/dL (75-99)
--- NOTE | 2021-02-23 11:47 | P.PN ---
Subjective Progress Note Date: 02/23/21 Patient is seen and examined at the bedside. No acute changes through the night. Pain is well managed. Wound VAC dressing is intact with good suction. His been afebrile. Objective - Vital Signs Vital signs: Vital Signs Temp 97.5 F L 02/23/21 06:45 Pulse 61 02/23/21 06:45 Resp 17 02/23/21 06:45 BP 103/58 02/23/21 06:45 Pulse Ox 100 02/23/21 06:45 Intake & Output 02/22/21 02/23/21 02/23/21 18:59 06:59 18:59 Intake Total 236 50 Output Total 0 Balance 236 50 Intake: Intake, IV Titration 50 Amount Cefepime 1 gm In Sodium 50 Chloride 0.9% 50 ml @ 100 mls/hr IVPB Q12H [facility] Rx# :[id number] Oral 236 Output: Urine 0 Other: # Voids 1 0 - Exam General appearance: The patient is alert, oriented, in no acute distress. HET: Head is normocephalic and atraumatic. Pupils are equal and reactive. Oropharynx is clear without lesions. Extremities: Left lower extremity transmetatarsal amputation site with wound VAC, intact with good suction. Mild erythema. Neurological: No focal deficits. Strength and sensation are grossly intact. - Labs CBC & Chem 7: 02/20/21 08:06 02/23/21 06:55 Labs: Abnormal Lab Results - Last 24 Hours (Table) 02/22/21 02/22/21 02/22/21 Range/Units 12:00 20:48 22:35 Creatinine (0.66-1.25) mg/dL POC Glucose (mg/dL) 166 H 153 H 131 H (75-99) mg/dL 02/23/21 Range/Units 06:55 Creatinine 6.09 H (0.66-1.25) mg/dL POC Glucose (mg/dL) (75-99) mg/dL Microbiology - Last 24 Hours (Table) 02/21/21 09:05 Gram Stain - Preliminary Foot - Left Wound Culture - Preliminary Assessment and Plan Assessment: 1. Postop day #1 left foot debridement with wound VAC placement 2. Infected left lower extremity transmetatarsal wound 3. [place] 5 peripheral arterial disease 4. Previous femoral to posterior tibial bypass 5. End-stage renal disease on dialysis Plan: 1. Continue wound VAC 2. Continue IV antibiotics per recommendations from infectious disease 3. Consult Physical therapy 4. Patient is cleared by vascular surgery for discharge once otherwise medically stable 5. Discussed with patient importance of outpatient follow-up with vascular earl rocael as well as wound care clinic The impression and plan of care has been dictated as directed. I performed a history and examination of this patient, discussed the same with the dictator. I agree with the dictator's note ,documented as a scribe. Any additional findings or plans will be noted.
[2021-02-23] MEDS: MIDODRINE 5 MG TAB PO PRN (14:19)
[2021-02-23 17:08] LABS: Glucose,Whole Blood 99 mg/dL (75-99)
[2021-02-23 21:11] LABS: Glucose,Whole Blood 176 mg/dL (75-99)
[2021-02-23] MEDS: ATORVASTATIN 80 MG TAB PO SCH (21:41)
[2021-02-23] MEDS: CLOPIDOGREL 75 MG TAB PO SCH (21:41)
[2021-02-23] MEDS: FOLIC ACID-VIT B COMPLEX-VIT C 1 CAP PO SCH (21:41)
--- NOTE | 2021-02-23 22:41 | PN ---
PROGRESS NOTE DATE OF SERVICE: 02/23/2021 REASON FOR FOLLOWUP: Left diabetic foot infection with underlying osteomyelitis. INTERVAL HISTORY: The patient is afebrile. The patient is currently breathing comfortably. The patient denies having any chest pain or shortness of breath or cough. No abdominal pain or any worsening pain to the left foot. PHYSICAL EXAMINATION: Blood pressure 186/78 with a pulse of 70, temperature 97.2. He is 99% on room air. General description is a middle-aged male lying in bed in no distress. RESPIRATORY SYSTEM: Unlabored breathing. Clear to auscultation anteriorly. HEART: S1, S2. Regular rate and rhythm. ABDOMEN: Soft. No tenderness. Left foot is currently covered with a wound V.A.C. LABS: Cultures are currently pending. DIAGNOSTIC IMPRESSION AND PLAN: Patient with a left diabetic foot infection, status post debridement of the wound down to the bone; concern for possible osteomyelitis with the wound tracking down to bone. Cultures are currently pending. Patient is covered with cefepime and Flagyl with the discharge antibiotics on the basis of the culture report. Continue supportive care. MMODL / IJN: [id number] /
[2021-02-24] MEDS: HEPARIN SODIUM,PORCINE/PF 5,000 UNIT/0.5 ML SYRINGE SQ SCH ×3 (01:15→17:09)
[2021-02-24 07:10] LABS: Glucose,Whole Blood 107 mg/dL (75-99)
[2021-02-24] MEDS: INSULIN ASPART (NovoLOG) 100 UNIT/ML VIAL SQ SCH ×3 (07:16→17:11)
[2021-02-24] MEDS: allopurinoL 100 MG TAB PO SCH (07:28)
[2021-02-24] MEDS: FUROSEMIDE 20 MG TAB PO SCH (07:28)
[2021-02-24] MEDS: ASPIRIN 81 MG PO SCH (07:29)
[2021-02-24] MEDS: metroNIDAZOLE 500 MG TAB PO SCH ×3 (07:29→21:12)
[2021-02-24] MEDS: FLUoxetine HCL 20 MG CAP PO SCH (07:29)
[2021-02-24] MEDS: SODIUM BICARBONATE TAB 650 MG TAB PO SCH ×2 (07:29→17:09)
[2021-02-24] MEDS: PREGABALIN 25 MG CAP PO SCH (07:29)
[2021-02-24] MEDS: METOPROLOL SUCCINATE (ER) 25 MG TAB.ER.24H PO SCH (07:29)
[2021-02-24] MEDS: SEVELAMER 800 MG TAB PO SCH ×3 (07:30→17:11)
--- NOTE | 2021-02-24 10:42 | P.PN ---
Subjective Patient is seen in follow-up for end-stage renal disease. He is maintained on hemodialysis on Monday schedule. Underwent debridement with wound VAC placement on the left foot this admission. No chest pain or shortness of breath. No problems with dialysis. No changes overnight. Vital signs are stable. General: The patient appeared well nourished and normally developed. HEENT: Head exam is unremarkable. LUNGS: Breath sounds decreased. HEART: Rate and Rhythm are regular. ABDOMEN: Soft, no distention. EXTREMITITES: No drainage noted. Left foot wound VAC noted. No edema. Objective - Vital Signs Vital signs: Vital Signs Temp 98.2 F 02/24/21 07:32 Pulse 68 02/24/21 07:32 Resp 17 02/24/21 08:00 BP 128/73 02/24/21 07:32 Pulse Ox 94 L 02/24/21 07:32 Intake & Output 02/23/21 02/24/21 02/24/21 18:59 06:59 18:59 Intake Total 300 Output Total 3800 1 Balance -3500 -1 Intake: Hemodialysis 300 Output: Stool 1 Hemodialysis 3800 Other: # Voids 4 1 # Bowel Movements 1 - Labs CBC & Chem 7: 02/20/21 08:06 02/23/21 06:55 Labs: Abnormal Lab Results - Last 24 Hours (Table) 02/23/21 02/23/21 02/24/21 Range/Units 11:42 21:10 07:09 POC Glucose (mg/dL) 144 H 176 H 107 H (75-99) mg/dL Microbiology - Last 24 Hours (Table) 02/21/21 09:05 Gram Stain - Final Foot - Left Wound Culture - Final Assessment and Plan Plan: Assessment: 1. End-stage renal disease maintained on hemodialysis on Monday schedule via AV fistula. 2. Left foot wound maintained on antibiotics. Status post debridement with wound VAC placement admission. 3. Chronic kidney disease mineral bone disease maintained on Renvela. 4. Chronic hypotension maintained on midodrine. Plan: Hemodialysis tomorrow. Stable for discharge from nephrology standpoint. Monitor vancomycin levels. Dose to be adjusted for renal function.
[2021-02-24 11:53] LABS: Glucose,Whole Blood 142 mg/dL (75-99)
--- NOTE | 2021-02-24 13:12 | P.PN ---
Subjective Progress Note Date: 02/24/21 No new complaints today. Micro growing numerous organisms - 3 x GNRs, staph aureus, group D enterococcus; pending speciation of GNRs, sensitivities of staph and enterococcus. Objective - Vital Signs Vital signs: Vital Signs Temp 98.2 F 02/24/21 07:32 Pulse 68 02/24/21 07:32 Resp 17 02/24/21 08:00 BP 128/73 02/24/21 07:32 Pulse Ox 94 L 02/24/21 07:32 Intake & Output 02/23/21 02/24/21 02/24/21 18:59 06:59 18:59 Intake Total 300 Output Total 3800 1 Balance -3500 -1 Intake: Hemodialysis 300 Output: Stool 1 Hemodialysis 3800 Other: # Voids 4 1 # Bowel Movements 1 - Exam Gen: awake, alert HEENT: normocephalic, atraumatic, good hearing acuity, moist mucous membranes Resp: good air exchange, breathing comfortably with no accessory muscle use, clear to auscultation bilaterally CVS: good distal perfusion x 4, regular rate and rhythm without murmurs GI: soft, NTTP, ND : no SPT, no CVAT, guillen catheter not present MSK: Left TMA with wound VAC Neuro: non-focal, moving all extremities Psych: cooperative, euthymic mood - Labs CBC & Chem 7: 02/20/21 08:06 02/23/21 06:55 Labs: Abnormal Lab Results - Last 24 Hours (Table) 02/23/21 02/24/21 02/24/21 Range/Units 21:10 07:09 11:52 POC Glucose (mg/dL) 176 H 107 H 142 H (75-99) mg/dL Microbiology - Last 24 Hours (Table) 02/21/21 09:05 Gram Stain - Final Foot - Left Wound Culture - Final Assessment and Plan Assessment: Diabetic foot infection Left TMA Diabetic neuropathy -Admit inpatient -Infectious disease consult -Wound care consult -Vascular surgery consult -Vancomycin, cefepime -Follow wound cultures, OR cultures -ESR, CRP -[place] when necessary -Continue Lyrica -patient may need wound vac on discharge Diabetes type 2 Diabetic nephropathy CKD stage IV -Avoid nephrotoxins -Renally dosed medication -Nephrology consult -Continue Renvela, bicarb, Midodrine -Low-dose sliding scale insulin Hypertension Hyperlipidemia History of CAD Gout Restless leg syndrome -Home medications reviewed and reconciled Patient is full code DVT prophylaxis with heparin 3 times a day
--- NOTE | 2021-02-24 14:19 | P.PN ---
Subjective Progress Note Date: 02/24/21 Patient is seen and examined at the bedside. No acute changes through the night. Pain is well managed. Wound VAC dressing is intact with good suction. He has been afebrile. He continues with IV antibiotics. Plan is for discharge today or tomorrow. Objective - Vital Signs Vital signs: Vital Signs Temp 98.2 F 02/24/21 07:32 Pulse 68 02/24/21 07:32 Resp 17 02/24/21 08:00 BP 128/73 02/24/21 07:32 Pulse Ox 94 L 02/24/21 07:32 Intake & Output 02/23/21 02/24/21 02/24/21 18:59 06:59 18:59 Intake Total 300 Output Total 3800 1 Balance -3500 -1 Intake: Hemodialysis 300 Output: Stool 1 Hemodialysis 3800 Other: # Voids 4 1 # Bowel Movements 1 - Exam General appearance: The patient is alert, oriented, in no acute distress. HET: Head is normocephalic and atraumatic. Pupils are equal and reactive. Oropharynx is clear without lesions. Extremities: Left lower extremity transmetatarsal amputation site with wound VAC, intact with good suction. Mild erythema. Neurological: No focal deficits. Strength and sensation are grossly intact. - Labs CBC & Chem 7: 02/20/21 08:06 02/23/21 06:55 Labs: Abnormal Lab Results - Last 24 Hours (Table) 02/23/21 02/23/21 02/24/21 Range/Units 11:42 21:10 07:09 POC Glucose (mg/dL) 144 H 176 H 107 H (75-99) mg/dL Microbiology - Last 24 Hours (Table) 02/21/21 09:05 Gram Stain - Final Foot - Left Wound Culture - Final Assessment and Plan Assessment: 1. Status post left foot debridement with wound VAC placement 2. Infected left lower extremity transmetatarsal wound 3. [place] 5 peripheral arterial disease 4. Previous femoral to posterior tibial bypass 5. End-stage renal disease on dialysis Plan: 1. Continue wound VAC 2. Continue IV antibiotics per recommendations from infectious disease 3. Consult Physical therapy 4. Patient is cleared by vascular surgery for discharge once otherwise medically stable 5. Discussed with patient importance of outpatient follow-up with vascular surgery as well as wound care clinic The impression and plan of care has been dictated as directed. Dr. Macias I performed a history and examination of this patient, discussed the same with the dictator. I agree with the dictator's note ,documented as a scribe. Any ad ditional findings or plans will be noted.
[2021-02-24 17:08] LABS: Glucose,Whole Blood 123 mg/dL (75-99)
--- NOTE | 2021-02-24 17:41 | PN ---
PROGRESS NOTE DATE OF SERVICE: 02/24/2021 REASON FOR FOLLOWUP: Left diabetic foot infection with concern for underlying osteomyelitis. INTERVAL HISTORY: Patient is currently afebrile. The patient is breathing comfortably. Patient denies having any chest pain, shortness of breath or cough. No abdominal pain or worsening pain in left foot. PHYSICAL EXAMINATION: Blood pressure 99/58 with a pulse of 73, temperature 98. He is 98% on room air. General description is a middle-aged male lying in bed in no distress. Respiratory system: Unlabored breathing, clear to auscultation anteriorly. Heart S1, S2. Regular rate and rhythm. Abdomen soft, no tenderness. Left foot is currently covered with a wound VAC. LABS: Cultures are still pending. DIAGNOSTIC IMPRESSION AND PLAN: This patient with left diabetic foot infection with infected hematoma, status post drainage. Culture currently pending. Discharge antibiotics depend on his cultures. Local care to continue with wound VAC and continue supportive care. MMODL / IJN: [id number] /
[2021-02-24 18:53] LABS: Glucose,Whole Blood 160 mg/dL (75-99)
[2021-02-24] MEDS: ATORVASTATIN 80 MG TAB PO SCH (20:30)
[2021-02-24] MEDS: CLOPIDOGREL 75 MG TAB PO SCH (20:30)
[2021-02-24] MEDS: FOLIC ACID-VIT B COMPLEX-VIT C 1 CAP PO SCH (20:31)
[2021-02-24] MEDS: HYDROcodone/APAP 5-325MG 1 EACH TAB PO PRN (20:31)
[2021-02-24] MEDS: CEFEPIME 1 GM in SODIUM CHLORIDE 0.9% 50 ML IVPB SCH (21:13)
[2021-02-24 21:35] LABS: Glucose,Whole Blood 141 mg/dL (75-99)
[2021-02-25] MEDS: HEPARIN SODIUM,PORCINE/PF 5,000 UNIT/0.5 ML SYRINGE SQ SCH ×4 (00:42→23:49)
[2021-02-25 07:20] LABS: Glucose,Whole Blood 88 mg/dL (75-99)
[2021-02-25] MEDS: INSULIN ASPART (NovoLOG) 100 UNIT/ML VIAL SQ SCH ×3 (07:22→17:02)
[2021-02-25] MEDS: SEVELAMER 800 MG TAB PO SCH ×3 (08:20→17:18)
[2021-02-25] MEDS: METOPROLOL SUCCINATE (ER) 25 MG TAB.ER.24H PO SCH (08:20)
[2021-02-25] MEDS: allopurinoL 100 MG TAB PO SCH (08:20)
[2021-02-25] MEDS: ASPIRIN 81 MG PO SCH (08:20)
[2021-02-25] MEDS: FUROSEMIDE 20 MG TAB PO SCH (08:20)
[2021-02-25] MEDS: metroNIDAZOLE 500 MG TAB PO SCH ×3 (08:20→22:07)
[2021-02-25] MEDS: FLUoxetine HCL 20 MG CAP PO SCH (08:20)
[2021-02-25] MEDS: PREGABALIN 25 MG CAP PO SCH (08:20)
[2021-02-25] MEDS: SODIUM BICARBONATE TAB 650 MG TAB PO SCH ×2 (08:20→17:02)
--- NOTE | 2021-02-25 10:12 | P.PN ---
Subjective Patient is seen in follow-up for end-stage renal disease. He is maintained on hemodialysis on Monday schedule. Underwent debridement with wound VAC placement on the left foot this admission. No chest pain or shortness of breath. No problems with dialysis. No changes overnight. Vital signs are stable. General: The patient appeared well nourished and normally developed. HEENT: Head exam is unremarkable. LUNGS: Breath sounds decreased. HEART: Rate and Rhythm are regular. ABDOMEN: Soft, no distention. EXTREMITITES: No drainage noted. Left foot wound VAC noted. No edema. Objective - Vital Signs Vital signs: Vital Signs Temp 97.7 F 02/25/21 07:52 Pulse 69 02/25/21 07:52 Resp 20 02/25/21 07:52 BP 99/58 02/25/21 07:52 Pulse Ox 95 02/25/21 07:52 Intake & Output 02/24/21 02/25/21 02/25/21 18:59 06:59 18:59 Intake Total 300 Output Total 1 Balance 299 Intake: Oral 300 Output: Stool 1 Other: # Voids 2 0 # Bowel Movements 2 - Labs CBC & Chem 7: 02/20/21 08:06 02/23/21 06:55 Labs: Abnormal Lab Results - Last 24 Hours (Table) 02/24/21 02/24/21 02/24/21 Range/Units 11:52 17:07 18:51 POC Glucose (mg/dL) 142 H 123 H 160 H (75-99) mg/dL 02/24/21 Range/Units 21:34 POC Glucose (mg/dL) 141 H (75-99) mg/dL Microbiology - Last 24 Hours (Table) 02/21/21 09:05 Anaerobic Culture - Final Foot - Left 02/21/21 09:05 Gram Stain - Final Foot - Left Wound Culture - Final Assessment and Plan Plan: Assessment: 1. End-stage renal disease maintained on hemodialysis on Monday schedule via AV fistula. 2. Left foot wound maintained on antibiotics. Status post debridement with wound VAC placement admission. 3. Chronic kidney disease mineral bone disease maintained on Renvela. 4. Chronic hypotension maintained on midodrine. Plan: Hemodialysis today. Stable for discharge from nephrology standpoint. Monitor vancomycin levels. Dose to be adjusted for renal function.
[2021-02-25] MEDS: HYDROcodone/APAP 5-325MG 1 EACH TAB PO PRN (10:46)
[2021-02-25 11:28] LABS: Glucose,Whole Blood 129 mg/dL (75-99)
[2021-02-25 13:20] VITALS: BMI 28.7
--- NOTE | 2021-02-25 13:47 | P.PN ---
Subjective Progress Note Date: 02/25/21 No new complaints today, waiting for final culture report prior to prescribing IV antibiotics outpatient Objective - Vital Signs Vital signs: Vital Signs Temp 97.7 F 02/25/21 07:52 Pulse 69 02/25/21 07:52 Resp 20 02/25/21 07:52 BP 99/58 02/25/21 07:52 Pulse Ox 95 02/25/21 07:52 Intake & Output 02/24/21 02/25/21 02/25/21 18:59 06:59 18:59 Intake Total 300 Output Total 1 Balance 299 Weight 90.718 kg Intake: Oral 300 Output: Stool 1 Other: # Voids 2 0 # Bowel Movements 2 - Exam Gen: awake, alert HEENT: normocephalic, atraumatic, good hearing acuity, moist mucous membranes Resp: good air exchange, breathing comfortably with no accessory muscle use, clear to auscultation bilaterally CVS: good distal perfusion x 4, regular rate and rhythm without murmurs GI: soft, NTTP, ND : no SPT, no CVAT, guillen catheter not present MSK: Left TMA with wound VAC Neuro: non-focal, moving all extremities Psych: cooperative, euthymic mood - Labs CBC & Chem 7: 02/20/21 08:06 02/23/21 06:55 Labs: Abnormal Lab Results - Last 24 Hours (Table) 02/24/21 02/24/21 02/24/21 Range/Units 17:07 18:51 21:34 POC Glucose (mg/dL) 123 H 160 H 141 H (75-99) mg/dL 02/25/21 Range/Units 11:26 POC Glucose (mg/dL) 129 H (75-99) mg/dL Microbiology - Last 24 Hours (Table) 02/21/21 09:05 Anaerobic Culture - Final Foot - Left Assessment and Plan Assessment: Diabetic foot infection Left TMA Diabetic neuropathy -Admit inpatient -Infectious disease consult -Wound care consult -Vascular surgery consult -Vancomycin, cefepime -Follow wound cultures, OR cultures -ESR, CRP -[place] when necessary -Continue Lyrica -patient will need wound vac on discharge Diabetes type 2 Diabetic nephropathy CKD stage IV -Avoid nephrotoxins -Renally dosed medication -Nephrology consult -Continue Renvela, bicarb, Midodrine -Low-dose sliding scale insulin Hypertension Hyperlipidemia History of CAD Gout Restless leg syndrome -Home medications reviewed and reconciled Patient is full code DVT prophylaxis with heparin 3 times a day
[2021-02-25 16:36] LABS: Glucose,Whole Blood 172 mg/dL (75-99)
[2021-02-25] MEDS: MIDODRINE 5 MG TAB PO PRN (17:01)
[2021-02-25] MEDS ORDERED: VANCOMYCIN 1,500 MG in SODIUM CHLORIDE 0.9% 250 ML IVPB ONE (21:00)
[2021-02-25 21:04] LABS: Glucose,Whole Blood 90 mg/dL (75-99)
[2021-02-25] MEDS: CLOPIDOGREL 75 MG TAB PO SCH (22:07)
[2021-02-25] MEDS: CEFEPIME 1 GM in SODIUM CHLORIDE 0.9% 50 ML IVPB SCH (22:08)
[2021-02-25] MEDS: ATORVASTATIN 80 MG TAB PO SCH (22:33)
[2021-02-25] MEDS: FOLIC ACID-VIT B COMPLEX-VIT C 1 CAP PO SCH (23:49)
[2021-02-26 07:29] LABS: Glucose,Whole Blood 89 mg/dL (75-99)
[2021-02-26] MEDS: METOPROLOL SUCCINATE (ER) 25 MG TAB.ER.24H PO SCH (08:44)
[2021-02-26] MEDS: FUROSEMIDE 20 MG TAB PO SCH (08:48)
[2021-02-26] MEDS: HEPARIN SODIUM,PORCINE/PF 5,000 UNIT/0.5 ML SYRINGE SQ SCH ×3 (08:48→23:16)
[2021-02-26] MEDS: SODIUM BICARBONATE TAB 650 MG TAB PO SCH ×2 (08:48→16:56)
[2021-02-26] MEDS: FLUoxetine HCL 20 MG CAP PO SCH (08:49)
[2021-02-26] MEDS: PREGABALIN 25 MG CAP PO SCH (08:49)
[2021-02-26] MEDS: ASPIRIN 81 MG PO SCH (08:49)
[2021-02-26] MEDS: allopurinoL 100 MG TAB PO SCH (08:49)
[2021-02-26] MEDS: metroNIDAZOLE 500 MG TAB PO SCH ×3 (08:49→23:16)
[2021-02-26] MEDS: INSULIN ASPART (NovoLOG) 100 UNIT/ML VIAL SQ SCH ×3 (08:49→16:56)
[2021-02-26] MEDS: SEVELAMER 800 MG TAB PO SCH ×3 (08:50→16:56)
--- NOTE | 2021-02-26 11:10 | P.PN ---
Subjective Patient is seen in follow-up for end-stage renal disease. He is maintained on hemodialysis on Monday schedule. Underwent debridement with wound VAC placement on the left foot this admission. No chest pain or shortness of breath. No problems with dialysis. No changes overnight. Vital signs are stable. General: The patient appeared well nourished and normally developed. HEENT: Head exam is unremarkable. LUNGS: Breath sounds decreased. HEART: Rate and Rhythm are regular. ABDOMEN: Soft, no distention. EXTREMITITES: No drainage noted. Left foot wound VAC noted. No edema. Objective - Vital Signs Vital signs: Vital Signs Temp 98.6 F 02/26/21 07:22 Pulse 64 02/26/21 08:45 Resp 16 02/26/21 07:22 BP 93/55 02/26/21 08:45 Pulse Ox 95 02/26/21 07:22 Intake & Output 02/25/21 02/26/21 02/26/21 18:59 06:59 18:59 Output Total 1 Balance -1 Weight 90.718 kg Output: Urine 0 Stool 1 Other: # Voids 0 # Bowel Movements 2 0 - Labs CBC & Chem 7: 02/20/21 08:06 02/23/21 06:55 Labs: Abnormal Lab Results - Last 24 Hours (Table) 02/25/21 02/25/21 Range/Units 11:26 16:34 POC Glucose (mg/dL) 129 H 172 H (75-99) mg/dL Microbiology - Last 24 Hours (Table) 02/21/21 09:05 Gram Stain - Final Foot - Left Wound Culture - Preliminary Group D Enterococcus Group D Enterococcus#2 Klebsiella pneumoniae Citrobacter werkmanii Morganella morganii Assessment and Plan Plan: Assessment: 1. End-stage renal disease maintained on hemodialysis on Monday schedule via AV fistula. 2. Left foot wound maintained on antibiotics. Status post debridement with wound VAC placement admission. 3. Chronic kidney disease mineral bone disease maintained on Renvela. 4. Chronic hypotension maintained on midodrine. Plan: Hemodialysis tomorrow. Stable for discharge from nephrology standpoint. Monitor vancomycin levels. Dose to be adjusted for renal function.
[2021-02-26 11:24] LABS: Glucose,Whole Blood 128 mg/dL (75-99)
--- NOTE | 2021-02-26 14:34 | P.PN ---
Subjective Progress Note Date: 02/26/21 No new complaints today, waiting for final culture report prior to prescribing IV antibiotics outpatient Objective - Vital Signs Vital signs: Vital Signs Temp 98.6 F 02/26/21 07:22 Pulse 64 02/26/21 08:45 Resp 16 02/26/21 07:22 BP 93/55 02/26/21 08:45 Pulse Ox 95 02/26/21 07:22 Intake & Output 02/25/21 02/26/21 02/26/21 18:59 06:59 18:59 Output Total 1 Balance -1 Weight 90.718 kg Output: Urine 0 Stool 1 Other: # Voids 0 # Bowel Movements 2 0 - Exam Gen: awake, alert HEENT: normocephalic, atraumatic, good hearing acuity, moist mucous membranes Resp: good air exchange, breathing comfortably with no accessory muscle use, cl ear to auscultation bilaterally CVS: good distal perfusion x 4, regular rate and rhythm without murmurs GI: soft, NTTP, ND : no SPT, no CVAT, guillen catheter not present MSK: Left TMA with wound VAC Neuro: non-focal, moving all extremities Psych: cooperative, euthymic mood - Labs CBC & Chem 7: 02/20/21 08:06 02/23/21 06:55 Labs: Abnormal Lab Results - Last 24 Hours (Table) 02/25/21 02/26/21 Range/Units 16:34 11:04 POC Glucose (mg/dL) 172 H 128 H (75-99) mg/dL Microbiology - Last 24 Hours (Table) 02/21/21 09:05 Gram Stain - Final Foot - Left Wound Culture - Preliminary Group D Enterococcus Group D Enterococcus#2 Klebsiella pneumoniae Citrobacter werkmanii Morganella morganii Assessment and Plan Assessment: Diabetic foot infection Left TMA Diabetic neuropathy -Admit inpatient -Infectious disease consult -Wound care consult -Vascular surgery consult -Vancomycin, cefepime -Follow wound cultures, OR cultures -ESR, CRP -[place] when necessary -Continue Lyrica -patient will need wound vac on discharge Diabetes type 2 Diabetic nephropathy CKD stage IV -Avoid nephrotoxins -Renally dosed medication -Nephrology consult -Continue Renvela, bicarb, Midodrine -Low-dose sliding scale insulin Hypertension Hyperlipidemia History of CAD Gout Restless leg syndrome -Home medications reviewed and reconciled Patient is full code DVT prophylaxis with heparin 3 times a day
[2021-02-26 16:45] LABS: Glucose,Whole Blood 185 mg/dL (75-99)
--- NOTE | 2021-02-26 18:05 | PN ---
PROGRESS NOTE DATE OF SERVICE: 02/26/2021 REASON FOR FOLLOWUP: Left diabetic foot infection with underlying osteomyelitis, acute secondary to VRE and Gram-negative. INTERVAL HISTORY: The patient is afebrile. The patient is breathing comfortably. Denies having any chest pain. No shortness of breath or cough. No abdominal pain. No diarrhea. PHYSICAL EXAMINATION: Blood pressure 106/57, pulse of 64, temperature 97.7. He is 95% on room air. General description is a middle-aged male up in the chair in no distress. Respiratory system: Unlabored breathing, clear to auscultation anteriorly. Heart S1, S2. Regular rate and rhythm. Abdomen soft, no tenderness. Left foot is currently covered with a wound VAC. LABS: Wound culture has been finalized with VRE and few gram-negative. DIAGNOSTIC IMPRESSION AND PLAN: Patient with left diabetic foot infection with underlying osteomyelitis, status post debridement as wound was down to the bone at time of surgery. Cultures are showing VRE, Klebsiella, Citrobacter and Morganella. Plan is for daptomycin post dialysis along with oral Cipro 500/750 mg daily and Flagyl 5 mg q.8 hours for 6 weeks. Local wound care with wound VAC and close outpatient followup. This was discussed with the admitting physician. MMODL / IJN: [id number] /
[2021-02-26] MEDS: FOLIC ACID-VIT B COMPLEX-VIT C 1 CAP PO SCH (20:15)
[2021-02-26] MEDS: CEFEPIME 1 GM in SODIUM CHLORIDE 0.9% 50 ML IVPB SCH (20:15)
[2021-02-26] MEDS: CLOPIDOGREL 75 MG TAB PO SCH (20:15)
[2021-02-26 20:34] LABS: Glucose,Whole Blood 116 mg/dL (75-99)
[2021-02-27] MEDS: INSULIN ASPART (NovoLOG) 100 UNIT/ML VIAL SQ SCH ×3 (07:13→16:35)
[2021-02-27 07:15] LABS: Glucose,Whole Blood 87 mg/dL (75-99)
[2021-02-27] MEDS: allopurinoL 100 MG TAB PO SCH (07:29)
[2021-02-27] MEDS: PREGABALIN 25 MG CAP PO SCH (07:29)
[2021-02-27] MEDS: HEPARIN SODIUM,PORCINE/PF 5,000 UNIT/0.5 ML SYRINGE SQ SCH ×2 (07:29→16:34)
[2021-02-27] MEDS: FUROSEMIDE 20 MG TAB PO SCH ×2 (07:29→16:34)
[2021-02-27] MEDS: METOPROLOL SUCCINATE (ER) 25 MG TAB.ER.24H PO SCH ×2 (07:29→16:34)
[2021-02-27] MEDS: SODIUM BICARBONATE TAB 650 MG TAB PO SCH ×2 (07:29→16:35)
[2021-02-27] MEDS: FLUoxetine HCL 20 MG CAP PO SCH (07:29)
[2021-02-27] MEDS: ASPIRIN 81 MG PO SCH (07:29)
[2021-02-27] MEDS: SEVELAMER 800 MG TAB PO SCH ×3 (07:30→16:35)
[2021-02-27] MEDS: metroNIDAZOLE 500 MG TAB PO SCH ×2 (07:31→16:35)
[2021-02-27 11:40] LABS: Glucose,Whole Blood 166 mg/dL (75-99)
--- NOTE | 2021-02-27 12:48 | PN ---
PROGRESS NOTE Patient is seen for followup for end-stage renal disease. He is currently sitting up in a bedside chair, comfortable. Patient denies any complaints. On examination, blood pressure 101/71, heart rate 74 per minute. He is afebrile. EXAMINATION OF THE HEART: S1 and S2. EXAMINATION OF LUNGS: Decreased breath sounds at the bases. Abdomen is soft, non-tender. Examination of lower extremities shows no significant edema. Left foot is dressed. Patient has forefoot amputation. Labs are not available. ASSESSMENT: 1. End-stage renal disease, on hemodialysis on a Monday, , Monday schedule. 2. Peripheral vascular disease with left foot partial amputation. Currently with wound V.A.C. Being considered for below-knee amputation. 3. Chronic kidney disease mineral bone disorder. 4. Chronic hypotension, maintained on midodrine. PLAN: Hemodialysis today. MMODL / IJN: [id number] /
[2021-02-27 14:52] VITALS: BP 111/62; PULSE 76; RESP 14; TEMP 97.6
--- NOTE | 2021-02-27 16:51 | P.DS ---
Providers Date of admission: 02/19/21 13:44 Expected date of discharge: 02/27/21 Attending physician: Johnie Hernandez Consults: 02/19/21 13:45 Consult Physician Urgent Consulting Provider: Tino Larios Consult Reason/Comments: Left foot wound/cellulitis Do you want consulting provider notified?: Yes 02/19/21 17:56 Consult Physician Routine Consulting Provider: Shereen Juarez Consult Reason/Comments: CKD IV Do you want consulting provider notified?: Yes Primary care physician: Wilian Zhang MD Hospital Course: Diabetic foot infection Left TMA Diabetic neuropathy -Admitted inpatient with ID consult, wound care consult, and vascular surgery consult. Initially started on vancomycin and cefepime. Taken to the OR on 02/21 for deep tissue cultures. Cultures grew 5 species, 2 enterococcus species and 3 GNRs. On discharge he was sent home with prescription for daptomycin for 6 weeks by IV following dialysis, and with oral cipro and flagyl for 6 weeks as well. Diabetes type 2 Diabetic nephropathy CKD stage IV -Avoided nephrotoxins -Renally dosed medication -Nephrology consulted for dialysis sessions -Continued Renvela, bicarb, Midodrine Hypertension Hyperlipidemia History of CAD Gout Restless leg syndrome -Home medications reviewed and reconciled I spent 39 minutes coordinating this complex discharge. Assessment: Gen: awake, alert HEENT: normocephalic, atraumatic, good hearing acuity, moist mucous membranes Resp: good air exchange, breathing comfortably with no accessory muscle use, clear to auscultation bilaterally CVS: good distal perfusion x 4, regular rate and rhythm without murmurs GI: soft, NTTP, ND : no SPT, no CVAT, guillen catheter not present MSK: Left TMA with wound VAC Neuro: non-focal, moving all extremities Psych: cooperative, euthymic mood Patient Condition at Discharge: Good Plan - Discharge Summary Discharge Rx Participant: No New Discharge Prescriptions: New metroNIDAZOLE [Flagyl] 500 mg PO TID 42 Days #126 tab Ciprofloxacin HCl 500 mg PO DAILY 42 Days #42 tab DAPTOmycin [Cubicin] 550 mg IVPB Q48H each Continue allopurinoL [Zyloprim] 100 mg PO DAILY@0800 Metoprolol Succinate [Toprol XL] 25 mg PO DAILY Clopidogrel [Plavix] 75 mg PO HS Aspirin 81 mg PO SUMOWEFR Midodrine [ProAmatine] 10 mg PO AC-TID PRN tab PRN Reason: Hypotension Pregabalin [Lyrica] 25 mg PO DAILY@0800 #3 cap Nepro-Mio 1 tab PO HS Furosemide [Lasix] 20 mg PO DAILY Potassium Chloride 10 meq PO DAILY FLUoxetine HCL [PROzac] 20 mg PO DAILY@0800 Sevelamer [Renvela] 1,600 mg PO AC-TID@,, Sodium Bicarbonate Tab 650 mg PO BID@0800,1700 glipiZIDE [Glucotrol XL] 2.5 mg PO DAILY Atorvastatin [Lipitor] 80 mg PO HS tab HYDROcodone/APAP 5-325MG [[place] 5-325] 1 tab PO Q6HR PRN #12 tab PRN Reason: Pain rOPINIRole HCL [Requip] 1 mg PO HS Discharge Medication List allopurinoL [Zyloprim] 100 mg PO DAILY@0800 05/16/16 [History] FLUoxetine HCL [PROzac] 20 mg PO DAILY@0800 09/15/20 [History] Metoprolol Succinate [Toprol XL] 25 mg PO DAILY 09/15/20 [History] Aspirin 81 mg PO SUMOWEFR 10/14/20 [History] Clopidogrel [Plavix] 75 mg PO HS 10/14/20 [History] Sevelamer [Renvela] 1,600 mg PO AC-TID@08,,10/14/20 [History] Sodium Bicarbonate Tab 650 mg PO BID@0800,1700 10/14/20 [History] glipiZIDE [Glucotrol XL] 2.5 mg PO DAILY 10/14/20 [History] Atorvastatin [Lipitor] 80 mg PO HS tab 10/19/20 [Rx] HYDROcodone/APAP 5-325MG [[place] 5-325] 1 tab PO Q6HR PRN #12 tab 10/19/20 [Rx] Midodrine [ProAmatine] 10 mg PO AC-TID PRN tab 10/19/20 [Rx] Pregabalin [Lyrica] 25 mg PO DAILY@0800 #3 cap 10/19/20 [Rx] Furosemide [Lasix] 20 mg PO DAILY 02/19/21 [History] Nepro-Mio 1 tab PO HS 02/19/21 [History] Potassium Chloride 10 meq PO DAILY 02/19/21 [History] rOPINIRole HCL [Requip] 1 mg PO HS 02/19/21 [History] Ciprofloxacin HCl 500 mg PO DAILY 42 Days #42 tab 02/27/21 [Rx] DAPTOmycin [Cubicin] 550 mg IVPB Q48H each 02/27/21 [Rx] metroNIDAZOLE [Flagyl] 500 mg PO TID 42 Days #126 tab 02/27/21 [Rx] Follow up Appointment(s)/Referral(s): Wilian Zhang MD [Primary Care Provider] - 1-2 days (office closed at time of discharge. Please call Monday to schedule appointment) Martínez Chou DO [STAFF PHYSICIAN] - 1 Week (office closed at time of discharge. Please call Monday to schedule appointment ) [facility] [NON-STAFF] - Activity/Diet/Wound Care/Special Instructions: Wound vac supplier: [employer]/ - [phone] - please call if you have questions regarding your wound vac or supplies.
--- NOTE | 2021-02-27 17:57 | PN ---
PROGRESS NOTE DATE OF SERVICE: 02/27/2021 REASON FOR FOLLOWUP: Left diabetic foot infection with underlying osteomyelitis. INTERVAL HISTORY: Patient is afebrile. The patient is breathing comfortably. Denies having any chest pain. No shortness of breath or cough. No abdominal pain or any worsening pain to the left foot area. PHYSICAL EXAMINATION: Blood pressure 111/62 with a pulse of 76, temperature is 97.6. He is 93% on room air. General description is an elderly male up in the chair in no distress. Respiratory system: Unlabored breathing, clear to auscultation anteriorly. Heart S1, S2. Regular rate and rhythm. Abdomen soft, no tenderness. Left foot is currently covered with a wound VAC. LABS: CRP 3.2. DIAGNOSTIC IMPRESSION AND PLAN: Patient with a left diabetic foot infection with concern for underlying osteomyelitis status post debridement. Culture positive for multiple pathogens including VRE, Morganella. Plan at this time is to finish therapy with daptomycin post for 6 along with oral Cipro and Flagyl for a total of 6 weeks with close outpatient followup. Family at the bedside. Multiple questions, those were answered. MMODL / IJN: [id number] /
== END 2021-02-27 16:55 | disposition home health service (06) | DRG 503 ==
LOC: EC 10:17 → 4SSUR 13:44
PROVIDERS: ADMIT Internal Medicine; ATTEND Internal Medicine
PROC: 5A1D70Z Performance of Urinary Filtration, Intermittent, Less than 6 Hours Per Day (ICD-10-PCS; 2021-02-19)
PROC: 0QBM0ZZ Excision of Left Tarsal, Open Approach (ICD-10-PCS; principal; 2021-02-21 08:00)
DX: T87.44 Infection of amputation stump, left lower extremity (principal); N18.6 End stage renal disease; I13.2 Hypertensive heart and chronic kidney disease with heart failure and with stage 5 chronic kidney disease, or end stage renal disease; L03.116 Cellulitis of left lower limb; M86.172 Other acute osteomyelitis, left ankle and foot; Z16.21 Resistance to vancomycin; E11.69 Type 2 diabetes mellitus with other specified complication; E11.621 Type 2 diabetes mellitus with foot ulcer; B95.2 Enterococcus as the cause of diseases classified elsewhere; E11.22 Type 2 diabetes mellitus with diabetic chronic kidney disease; E11.40 Type 2 diabetes mellitus with diabetic neuropathy, unspecified; E11.51 Type 2 diabetes mellitus with diabetic peripheral angiopathy without gangrene; E11.628 Type 2 diabetes mellitus with other skin complications; E78.5 Hyperlipidemia, unspecified; G25.81 Restless legs syndrome; Z20.822 Contact with and (suspected) exposure to COVID-19; I25.10 Atherosclerotic heart disease of native coronary artery without angina pectoris; I50.9 Heart failure, unspecified; I70.245 Atherosclerosis of native arteries of left leg with ulceration of other part of foot; I95.89 Other hypotension; L97.524 Non-pressure chronic ulcer of other part of left foot with necrosis of bone; M10.9 Gout, unspecified; M89.8X9 Other specified disorders of bone, unspecified site; N40.0 Benign prostatic hyperplasia without lower urinary tract symptoms; Z79.84 Long term (current) use of oral hypoglycemic drugs; Z79.899 Other long term (current) drug therapy; Z82.49 Family history of ischemic heart disease and other diseases of the circulatory system; Z86.011 Personal history of benign neoplasm of the brain; Z87.891 Personal history of nicotine dependence; Z95.1 Presence of aortocoronary bypass graft; Z99.2 Dependence on renal dialysis
CPT/HCPCS: 36415; 80048; 80053; 80202; 82565; 83735; 85025; 85652; 86140; 87070; 87075; 87077; 87186; 87205; 87635; 90935; 99284

== ENCOUNTER 2021-03-08 09:08 | Inpatient (IN) | payer MEDICARE, BC ==
--- NOTE | 2021-03-08 11:27 | ED ---
General Adult HPI - General Chief complaint: Wound/Laceration Stated complaint: Wound L foot, sent from the wound center Time Seen by Provider: 03/08/21 11:25 Source: patient, RN notes reviewed, old records reviewed Mode of arrival: wheelchair Limitations: no limitations - History of Present Illness Initial comments: Patient is a 66-year-old male with history of dialysis, T/TH/S, diabetes, presenting to emergency Department from the wound center for recheck of wounds on his left foot. He states he is currently on oral and IV antibiotics and wound care today want him to be rechecked. He states that Dr. Macias wants to possibly to look at his foot for possible further amputation. He had partial foot amputation earlier this year, he had recent debridement of the wound on 02/21/[address] Macias. He is currently on Cipro, Flagyl, daptomycin. He has been taking [place] for his pain, he states his pain has increased over the past week, lasted a [place] this morning which did help with his pain. He denies any fevers or chills. He did have a full dialysis treatment on Monday. He denies any chest pain or short of breath. He has no further complaints. - Related Data Home Medications Medication Instructions Recorded Confirmed allopurinoL [Zyloprim] 100 mg PO DAILY@0800 05/16/16 02/19/21 FLUoxetine HCL [PROzac] 20 mg PO DAILY@0800 09/15/20 02/19/21 Metoprolol Succinate [Toprol XL] 25 mg PO DAILY 09/15/20 02/19/21 Aspirin 81 mg PO SUMOWEFR 10/14/20 02/19/21 Clopidogrel [Plavix] 75 mg PO HS 10/14/20 02/19/21 Sevelamer [Renvela] 1,600 mg PO AC-TID@08,12,17 10/14/20 02/19/21 Sodium Bicarbonate Tab 650 mg PO BID@0800,1700 10/14/20 02/19/21 glipiZIDE [Glucotrol XL] 2.5 mg PO DAILY 10/14/20 02/19/21 Furosemide [Lasix] 20 mg PO DAILY 02/19/21 02/19/21 Nepro-Mio 1 tab PO HS 02/19/21 02/19/21 Potassium Chloride 10 meq PO DAILY 02/19/21 02/19/21 rOPINIRole HCL [Requip] 1 mg PO HS 02/19/21 02/19/21 Previous Rx's Medication Instructions Recorded Atorvastatin [Lipitor] 80 mg PO HS tab 10/19/20 HYDROcodone/APAP 5-325MG [[place] 1 tab PO Q6HR PRN #12 tab 10/19/20 5-325] Midodrine [ProAmatine] 10 mg PO AC-TID PRN tab 10/19/20 Pregabalin [Lyrica] 25 mg PO DAILY@0800 #3 cap 10/19/20 Ciprofloxacin HCl 500 mg PO DAILY 42 Days #42 tab 02/27/21 DAPTOmycin [Cubicin] 550 mg IVPB Q48H each 02/27/21 metroNIDAZOLE [Flagyl] 500 mg PO TID 42 Days #126 tab 02/27/21 Allergies Allergy/AdvReac Type Severity Reaction Status Date / Time No Known Allergies Allergy Verified 03/08/21 11:23 Review of Systems ROS Statement: Those systems with pertinent positive or pertinent negative responses have been documented in the HPI. ROS Other: All systems not noted in ROS Statement are negative. 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 History of Any Multi-Drug Resistant Organisms: None Reported Past Surgical History: Coronary Bypass/CABG, Heart Catheterization, Orthopedic Surgery Additional Past Surgical History / Comment(s): Recent transplant biopsy, vein mapping last week at [facility] in preparation for new fistula, meningioma benign brain tumor removed at [facility], (rt) kidney transplant 2012 at [facility], 5 vessel cabg, colonoscopy-clear, lt knee arthroscopy, rt arm fistulas with R upper arm fistula removed, forehead skin cancer removal. lef ttoe amputation Past Anesthesia/Blood Transfusion Reactions: Motion Sickness Past Psychological History: No Psychological Hx Reported Smoking Status: Former smoker - Past Family History Father Family Medical History: Hypertension, Myocardial Infarction ([place]), Renal Disease Additional Family Medical History / Comment(s): Pt states his father had received blood, had a reaction-a [place] and at the age of 40yrs. Mother Family Medical History: Dementia Additional Family Medical History / Comment(s): Mother is 82 yrs old. Sister(s) Family Medical History: Hyperlipidemia, Renal Disease Additional Family Medical History / Comment(s): Sister is on hemodialysis. General Exam - General Exam Comments Initial Comments: GENERAL: Patient is well-developed and well-nourished. Patient is nontoxic and in no acute distress. HEAD: Atraumatic, normocephalic. EYES: Pupils equal round and reactive to light, extraocular movements intact, sclera anicteric, conjunctiva are normal. Eyelids were unremarkable. ENT: Nares patent, oropharynx clear without exudates. Moist mucous membranes. NECK: Normal range of motion, supple without lymphadenopathy or JVD. LUNGS: Unlabored respirations. Breath sounds clear to auscultation bilaterally and equal. No wheezes rales or rhonchi. HEART: Regular rate and rhythm without murmurs, rubs or gallops. MUSCULOSKELETAL: Patient has a partial amputation of the left foot. Rest of extremities with adequate strength and normal range of motion, no pitting or edema. No clubbing or cyanosis. NEUROLOGICAL: Patient is alert and oriented x 3. Normal speech, normal gait. PSYCH: Normal mood, normal affect. SKIN: Warm, Dry, normal turgor. Patient has open wound of the left foot with recent debridement, erythema spreading up the left foot, he does have pain surrounding. Patient has dialysis fistula present in the right arm. Limitations: no limitations General appearance: alert, in no apparent distress Head exam: Present: atraumatic Eye exam: Present: normal appearance Course Vital Signs 03/08/21 03/08/21 11:23 16:39 Temperature 98 F Pulse Rate 75 66 Respiratory 18 18 Rate Blood Pressure 104/51 97/52 O2 Sat by Pulse 96 97 Oximetry Medical Decision Making - Medical Decision Making Patient is a 66-year-old male with history of kidney failure on dialysis, T//, presenting from the wound center for further evaluation of a nonhealing left foot wound. He has recent debridement with Dr. Macias on 02/21/2021. He is currently on Cipro, Flagyl, daptomycin with worsening of his wound the wound center sent him in for further evaluation. No fevers, his vitals are stable. He did have dialysis this past Monday. Labs are stable, left foot x-rays also stable, no signs of osteomyelitis. Patient will be admitted for IV antibiotics, consult with ID, Dr. Macias and nephrology for dialysis tomorrow. Patient accepted by Dr. Cleaning. Case discussed with Dr. Gillette. - Lab Data Result diagrams: 03/08/21 14:12 03/08/21 14:12 Lab Results 03/08/21 03/08/21 03/08/21 Range/Units 14:12 14:12 15:37 WBC 7.2 (3.8-10.6) k/uL RBC 4.20 L (4.30-5.90) m/uL Hgb 12.7 L (13.0-17.5) gm/dL Hct 39.4 (39.0-53.0) % MCV 93.8 (80.0-100.0) fL MCH 30.2 (25.0-35.0) pg MCHC 32.2 (31.0-37.0) g/dL RDW 19.2 H (11.5-15.5) % Plt Count 157 (150-450) k/uL MPV 9.7 Neutrophils % 84 % Lymphocytes % 7 % Monocytes % 5 % Eosinophils % 1 % Basophils % 1 % Neutrophils # 6.0 (1.3-7.7) k/uL Lymphocytes # 0.5 L (1.0-4.8) k/uL Monocytes # 0.4 (0-1.0) k/uL Eosinophils # 0.1 (0-0.7) k/uL Basophils # 0.0 (0-0.2) k/uL Hypochromasia Slight Anisocytosis Slight Macrocytosis Slight ESR QNS 18 H Sodium 133 L (137-145) mmol/L Potassium 4.6 (3.5-5.1) mmol/L Chloride 93 L (98-107) mmol/L Carbon Dioxide 26 (22-30) mmol/L Anion Gap 14 mmol/L BUN 41 H (9-20) mg/dL Creatinine 6.10 H (0.66-1.25) mg/dL Est GFR (CKD-EPI)AfAm 10 (>60 ml/min/1.73 sqM) Est GFR (CKD-EPI)NonAf 9 (>60 ml/min/1.73 sqM) Glucose 87 (74-99) mg/dL Calcium 10.2 (8.4-10.2) mg/dL Total Bilirubin 2.4 H (0.2-1.3) mg/dL AST 21 (17-59) U/L ALT 10 (4-49) U/L Alkaline Phosphatase 343 H (38-126) U/L C-Reactive Protein 5.1 H (<1.0) mg/dL Total Protein 6.8 (6.3-8.2) g/dL Albumin 3.6 (3.5-5.0) g/dL Disposition Clinical Impression: Cellulitis of left foot, Non-healing ulcer of left foot with necrosis of bone, Failure of outpatient treatment Disposition: ADMITTED IP TO THIS [facility] Condition: Stable Decision Date: 03/08/21 Decision Time: 15:35
--- NOTE | 2021-03-08 14:15 | XR ---
Left foot HISTORY: Chronic wound, pain 2 views of the left foot Transmetatarsal amputation has been performed previously. There is associated soft tissue swelling pr esent. No acute fracture or dislocation. Vascular calcifications are dense. There is a plantar calcan eal spur. Enthesophyte present at the insertion of the Achilles tendon. Bone mineralization is reduce d. IMPRESSION: Postop changes. Correlate for diabetes. Soft tissue swelling, correlate for cellulitis.
[2021-03-08 14:52] LABS: Albumin 3.6 g/dL (3.5-5.0); C Reactive Protein 5.1 mg/dL (<1.0); Calcium 10.2 mg/dL (8.4-10.2); Potassium 4.6 mmol/L (3.5-5.1); Total Bilirubin 2.4 mg/dL (0.2-1.3); Total Protein 6.8 g/dL (6.3-8.2)
[2021-03-08 15:06] LABS: Anisocytosis Slight; Basophils % (A) 1 %; Eosinophils # (A) 0.1 k/uL (0-0.7); Eosinophils % (A) 1 %; HCT 39.4 % (39.0-53.0); HGB 12.7 gm/dL (13.0-17.5); Hypochromasia Slight; Lymphocytes # (A) 0.5 k/uL (1.0-4.8); Lymphocytes % (A) 7 %; MCH 30.2 pg (25.0-35.0); MCHC 32.2 g/dL (31.0-37.0); MCV 93.8 fL (80.0-100.0); Macrocytosis Slight; Mean Platelet Volume 9.7; Monocytes # (A) 0.4 k/uL (0-1.0); Monocytes % (A) 5 %; Neutrophils % (A) 84 %; Platelet Count 157 k/uL (150-450); RDW 19.2 % (11.5-15.5); WBC 7.2 k/uL (3.8-10.6)
[2021-03-08 15:21] LABS: Erythrocyte Sedimentation Rate QNS mm/hr (0-15)
[2021-03-08] MEDS ORDERED: HYDROcodone/APAP 5-325MG 1 EACH TAB PO PRN (15:30)
[2021-03-08] MEDS ORDERED: ACETAMINOPHEN TAB 325 MG TAB PO PRN (15:30)
[2021-03-08] MEDS ORDERED: NALOXONE 0.4 MG/ML 1 ML VIAL IV PRN (15:30)
[2021-03-08] MEDS ORDERED: ONDANSETRON 4 MG/2 ML VIAL IVP PRN (15:30)
[2021-03-08] MEDS: MORPHINE SULFATE 4 MG/ML SYRINGE IV PRN (16:00)
[2021-03-08] MEDS ORDERED: VANCOMYCIN IV PER PHARMACY 1 EACH MISC MISCELLANE PRN (18:32)
--- NOTE | 2021-03-08 18:38 | P.HPIM ---
History of Present Illness H&P Date: 03/08/21 Chief Complaint: CC: worsening left lower extremity wound Patient is a 66-year-old male with a past medical history of diabetes, ESRD on hemodialysis, hypertension, hyperlipidemia, coronary artery disease, gout, restless leg syndrome, SANA on CPAP was recently admitted for left lower extremity foot ulcer. Patient was seen by infectious disease, wound care and vascular surgery. He was taken to the OR and had extensive debridement done and wound VAC was placed. Patient was then discharged on ciprofloxacin, Flagyl and daptomycin with dialysis for 6 weeks. Patient went to the wound care center today and wound VAC was removed to examine his wound and then noticed that it appeared infected therefore told him to go to the ED to get admitted and be evaluated by vascular surgery and infectious disease. Patient denies any fever or chills. 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 History of Any Multi-Drug Resistant Organisms: None Reported Past Surgical History: Coronary Bypass/CABG, Heart Catheterization, Orthopedic Surgery Additional Past Surgical History / Comment(s): Recent transplant biopsy, vein mapping last week at [facility] in preparation for new fistula, meningioma benign brain tumor removed at [facility], (rt) kidney transplant 2012 at [facility], 5 vessel cabg, colonoscopy-clear, lt knee arthroscopy, rt arm fistulas with R upper arm fistula removed, forehead skin cancer removal. lef ttoe amputation Past Anesthesia/Blood Transfusion Reactions: Motion Sickness Past Psychological History: No Psychological Hx Reported Smoking Status: Former smoker - Past Family History Father Family Medical History: Hypertension, Myocardial Infarction ([place]), Renal Disease Additional Family Medical History / Comment(s): Pt states his father had received blood, had a reaction-a [place] and at the age of 40yrs. Mother Family Medical History: Dementia Additional Family Medical History / Comment(s): Mother is 82 yrs old. Sister(s) Family Medical History: Hyperlipidemia, Renal Disease Additional Family Medical History / Comment(s): Sister is on hemodialysis. Medications and Allergies Home Medications Medication Instructions Recorded Confirmed Type allopurinoL [Zyloprim] 100 mg PO DAILY@0800 05/16/16 03/08/21 History FLUoxetine HCL [PROzac] 20 mg PO DAILY@0800 09/15/20 03/08/21 History Metoprolol Succinate [Toprol XL] 25 mg PO DAILY 09/15/20 03/08/21 History Aspirin 81 mg PO SUMOWEFR 10/14/20 03/08/21 History Clopidogrel [Plavix] 75 mg PO HS 10/14/20 03/08/21 History Sevelamer [Renvela] 1,600 mg PO AC-TID@08,12,17 10/14/20 03/08/21 History Sodium Bicarbonate Tab 650 mg PO BID@0800,1700 10/14/20 03/08/21 History glipiZIDE [Glucotrol XL] 2.5 mg PO DAILY 10/14/20 03/08/21 History Atorvastatin [Lipitor] 80 mg PO HS tab 10/19/20 03/08/21 Rx HYDROcodone/APAP 5-325MG [[place] 1 tab PO Q6HR PRN #12 tab 10/19/20 03/08/21 Rx 5-325] Midodrine [ProAmatine] 10 mg PO AC-TID PRN tab 10/19/20 03/08/21 Rx Pregabalin [Lyrica] 25 mg PO DAILY@0800 #3 cap 10/19/20 03/08/21 Rx Furosemide [Lasix] 20 mg PO DAILY 02/19/21 03/08/21 History Nepro-Mio 1 tab PO HS 02/19/21 03/08/21 History Potassium Chloride 10 meq PO DAILY 02/19/21 03/08/21 History rOPINIRole HCL [Requip] 1 mg PO HS 02/19/21 03/08/21 History Ciprofloxacin HCl 500 mg PO DAILY 42 Days #42 tab 02/27/21 03/08/21 Rx DAPTOmycin [Cubicin] 550 mg IVPB Q48H each 02/27/21 03/08/21 Rx metroNIDAZOLE [Flagyl] 500 mg PO TID 42 Days #126 tab 02/27/21 03/08/21 Rx Allergies Allergy/AdvReac Type Severity Reaction Status Date / Time No Known Allergies Allergy Verified 03/08/21 17:13 Physical Exam Osteopathic Statement: *. No significant issues noted on an osteopathic structural exam other than those noted in the History and Physical/Consult. Vitals: Vital Signs Temp Pulse Resp BP Pulse Ox 03/08/21 16:39 66 18 97/52 97 03/08/21 11:23 98 F 75 18 104/51 96 Intake and Output 03/08/21 03/08/21 03/08/21 06:59 14:59 22:59 Other: Weight 90.718 kg General: [Alert and oriented, well nourished, no acute distress]. Eye: [PERRL, EOMI, normal conjunctiva]. HENT: [Normocephalic, clear tympanic membranes, normal hearing, moist oral mucosa, no scleral icterus, no sinus tenderness]. Neck: [Supple, non-tender, no carotid bruits, no JVD, no lymphadenopathy]. Lungs: [Clear to auscultation and percussion, non-labored respiration]. Heart: [Normal rate, regular rhythm, no murmur, gallop or edema]. Abdomen: [Soft, non-tender, non-distended, normal bowel sounds, no masses]. Musculoskeletal: [Normal range of motion and strength, no tenderness or swelling]. Skin: [Left lower foot amputation with large wound that is oozing with blood and there is also purulent discharge]. Neurologic: [Awake, alert, and oriented X3, CN II-XII intact]. Psychiatric: [Cooperative, appropriate mood and affect]. Results CBC & Chem 7: 03/08/21 14:12 03/08/21 14:12 Labs: Abnormal Lab Results - Last 24 Hours (Table) 03/08/21 03/08/21 03/08/21 Range/Units 14:12 14:12 15:37 RBC 4.20 L (4.30-5.90) m/uL Hgb 12.7 L (13.0-17.5) gm/dL RDW 19.2 H (11.5-15.5) % Lymphocytes # 0.5 L (1.0-4.8) k/uL ESR 18 H (0-15) mm/hr Sodium 133 L (137-145) mmol/L Chloride 93 L (98-107) mmol/L BUN 41 H (9-20) mg/dL Creatinine 6.10 H (0.66-1.25) mg/dL Total Bilirubin 2.4 H (0.2-1.3) mg/dL Alkaline Phosphatase 343 H (38-126) U/L C-Reactive Protein 5.1 H (<1.0) mg/dL Assessment and Plan Assessment: Left lower extremity diabetic foot ulcer -On previous admission patient was discharged on daptomycin, ciprofloxacin and Flagyl. We will start patient on broad-spectrum antibiotics with vancomycin and cefepime and flagyl. Infectious disease to augment antibiotics -Consult infectious disease, wound care, vascular surgery -Follow blood cultures ESRD Consult nephrology for HD Diabetes mellitus Hold glipizide. Sliding scale insulin Chronic conditions Hypertension Hyperlipidemia History of coronary artery disease Gout -Resume home meds CODE STATUS:full code DVT prophylaxis: Subcu heparin Discussed with: Patient, ER, rn Anticipated length of stay > than [address]: home A total of 50 minutes was spent on the care of this complex patient more than 50% of the time was spent in counseling and care coordination.
[2021-03-08] MEDS ORDERED: VANCOMYCIN 1,500 MG in SODIUM CHLORIDE 0.9% 250 ML IVPB ONE (19:15)
[2021-03-08] MEDS ORDERED: CLOPIDOGREL 75 MG TAB PO SCH (21:00)
[2021-03-08] MEDS: INSULIN ASPART (NovoLOG) 100 UNIT/ML VIAL SQ SCH (21:22)
[2021-03-08] MEDS: HEPARIN SODIUM,PORCINE/PF 5,000 UNIT/0.5 ML SYRINGE SQ SCH (21:26)
[2021-03-08] MEDS: ATORVASTATIN 80 MG TAB PO SCH (21:26)
[2021-03-08] MEDS: ASPIRIN 81 MG PO SCH (21:29)
[2021-03-08 21:31] LABS: Glucose,Whole Blood 78 mg/dL (75-99)
[2021-03-08] MEDS: metroNIDAZOLE-NS PMX 500 MG in SALINE 1 100ML.BAG IVPB SCH (21:32)
[2021-03-08] MEDS: CEFEPIME 1 GM in SODIUM CHLORIDE 0.9% 50 ML IVPB SCH (23:03)
[2021-03-09 06:30] LABS: Glucose,Whole Blood 47 mg/dL (75-99)
[2021-03-09 06:33] LABS: Glucose,Whole Blood 48 mg/dL (75-99)
[2021-03-09] MEDS: metroNIDAZOLE-NS PMX 500 MG in SALINE 1 100ML.BAG IVPB SCH ×3 (06:37→16:07)
[2021-03-09 07:07] LABS: Glucose,Whole Blood 88 mg/dL (75-99)
[2021-03-09 08:15] LABS: Glucose,Whole Blood 61 mg/dL (75-99)
[2021-03-09] MEDS: HEPARIN SODIUM,PORCINE/PF 5,000 UNIT/0.5 ML SYRINGE SQ SCH ×2 (08:15→20:29)
[2021-03-09] MEDS: METOPROLOL SUCCINATE (ER) 25 MG TAB.ER.24H PO SCH (08:15)
[2021-03-09] MEDS: SEVELAMER 800 MG TAB PO SCH ×3 (08:15→18:00)
[2021-03-09] MEDS: SODIUM BICARBONATE TAB 650 MG TAB PO SCH ×2 (08:16→18:00)
[2021-03-09] MEDS: INSULIN ASPART (NovoLOG) 100 UNIT/ML VIAL SQ SCH ×4 (08:16→20:29)
[2021-03-09] MEDS: allopurinoL 100 MG TAB PO SCH (08:16)
[2021-03-09] MEDS: FLUoxetine HCL 20 MG CAP PO SCH (08:16)
[2021-03-09] MEDS: FUROSEMIDE 20 MG TAB PO SCH (08:16)
[2021-03-09] MEDS: PREGABALIN 25 MG CAP PO SCH (08:29)
[2021-03-09] MEDS: MORPHINE SULFATE 4 MG/ML SYRINGE IV PRN ×3 (08:29→20:30)
--- NOTE | 2021-03-09 08:43 | P.NPCON ---
History of Present Illness - Reason for Consult end stage renal disease - History of Present Illness Reason for consultation: End-stage renal disease History of present illness: Patient is a 66-year-old male seen in renal consultation for end-stage renal disease. He is maintained on hemodialysis on Monday schedule. Patient was seen and examined in the emergency room. Patient has a wound on his left foot for which she has undergone debridement as well as wound VAC placement recently. Patient went to wound clinic on Monday and was advised to go to the hospital. He denies any drainage from the wound. He did have a fever 100F this morning. He's receiving IV antibiotics. No vomiting or diarrhea. No chest pain or shortness of breath. Scheduled for dialysis today. Hemodynamically stable. Vital signs are stable. General: The patient appeared well nourished and normally developed. HEENT: Head exam is unremarkable. LUNGS: Breath sounds decreased. HEART: Rate and Rhythm are regular. ABDOMEN: Soft, no distention. EXTREMITITES: No edema. Left foot wrapped. Amputation of toes noted. No drainage. 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 History of Any Multi-Drug Resistant Organisms: None Reported Past Surgical History: Coronary Bypass/CABG, Heart Catheterization, Orthopedic Surgery Additional Past Surgical History / Comment(s): Recent transplant biopsy, vein mapping last week at [facility] in preparation for new fistula, meningioma benign brain tumor removed at [facility], (rt) kidney transplant 2013 at [facility], 5 vessel cabg, colonoscopy-clear, lt knee arthroscopy, rt arm fistulas with R upper arm fistula removed, forehead skin cancer removal. lef ttoe amputation Past Anesthesia/Blood Transfusion Reactions: Motion Sickness Past Psychological History: No Psychological Hx Reported Smoking Status: Former smoker - Past Family History Father Family Medical History: Hypertension, Myocardial Infarction ([place]), Renal Disease Additional Family Medical History / Comment(s): Pt states his father had received blood, had a reaction-a [place] and at the age of 40yrs. Mother Family Medical History: Dementia Additional Family Medical History / Comment(s): Mother is 82 yrs old. Sister(s) Family Medical History: Hyperlipidemia, Renal Disease Additional Family Medical History / Comment(s): Sister is on hemodialysis. Medications and Allergies Home Medications Medication Instructions Recorded Confirmed Type allopurinoL [Zyloprim] 100 mg PO DAILY@0800 05/16/16 03/08/21 History FLUoxetine HCL [PROzac] 20 mg PO DAILY@0800 09/15/20 03/08/21 History Metoprolol Succinate [Toprol XL] 25 mg PO DAILY 09/15/20 03/08/21 History Aspirin 81 mg PO SUMOWEFR 10/14/20 03/08/21 History Clopidogrel [Plavix] 75 mg PO HS 10/14/20 03/08/21 History Sevelamer [Renvela] 1,600 mg PO AC-TID@08,12,17 10/14/20 03/08/21 History Sodium Bicarbonate Tab 650 mg PO BID@0800,1700 10/14/20 03/08/21 History glipiZIDE [Glucotrol XL] 2.5 mg PO DAILY 10/14/20 03/08/21 History Atorvastatin [Lipitor] 80 mg PO HS tab 10/19/20 03/08/21 Rx HYDROcodone/APAP 5-325MG [[place] 1 tab PO Q6HR PRN #12 tab 10/19/20 03/08/21 Rx 5-325] Midodrine [ProAmatine] 10 mg PO AC-TID PRN tab 10/19/20 03/08/21 Rx Pregabalin [Lyrica] 25 mg PO DAILY@0800 #3 cap 10/19/20 03/08/21 Rx Furosemide [Lasix] 20 mg PO DAILY 02/19/21 03/08/21 History Nepro-Mio 1 tab PO HS 02/19/21 03/08/21 History Potassium Chloride 10 meq PO DAILY 02/19/21 03/08/21 History rOPINIRole HCL [Requip] 1 mg PO HS 02/19/21 03/08/21 History Ciprofloxacin HCl 500 mg PO DAILY 42 Days #42 tab 02/27/21 03/08/21 Rx DAPTOmycin [Cubicin] 550 mg IVPB Q48H each 02/27/21 03/08/21 Rx metroNIDAZOLE [Flagyl] 500 mg PO TID 42 Days #126 tab 02/27/21 03/08/21 Rx Allergies Allergy/AdvReac Type Severity Reaction Status Date / Time No Known Allergies Allergy Verified 03/08/21 17:13 Physical Exam Vitals: Vital Signs Temp Pulse Resp BP Pulse Ox 03/09/21 08:36 105/54 03/09/21 08:16 100.0 F H 92 16 97/51 95 03/09/21 06:34 96.7 F L 96 16 117/57 94 L 03/09/21 03:00 98.6 F 74 22 95/59 96 03/09/21 02:00 98.4 F 84 22 110/68 97 03/09/21 00:00 98 F 77 20 108/74 97 03/08/21 18:21 79 18 109/54 97 03/08/21 16:39 66 18 97/52 97 03/08/21 11:23 98 F 75 18 104/51 96 Results - Lab Results Most recent lab results Calcium 10.2 mg/dL (8.4-10.2) 03/08/21 14:12 03/08/21 14:12 03/08/21 14:12 Assessment and Plan Plan: Assessment: 1. End-stage renal disease maintained on hemodialysis on Monday schedule. 2. Left foot wound status post debridement and wound VAC placement. On IV antibiotics. 3. Chronic hypotension maintained on midodrine. 4. Chronic kidney disease mineral bone disease maintained on Renvela. 5. Diabetes mellitus. Plan: Hemodialysis today. Thank you for the consultation. I will continue to follow the patient with you during his hospital stay.
[2021-03-09 09:28] LABS: Basophils # (A) 0.05 X 10*3/uL (0.00-0.10); Basophils % (A) 0.6 %; Eosinophils # (A) 0.16 X 10*3/uL (0.04-0.35); Eosinophils % (A) 1.9 %; HCT 35.8 % (39.6-50.0); HGB 11.3 g/dL (13.0-17.0); Lymphocytes # (A) 0.92 X 10*3/uL (0.90-5.00); Lymphocytes % (A) 11.1 %; MCH 29.3 pg (27.0-32.0); MCHC 31.6 g/dL (32.0-37.0); MCV 92.7 fL (80.0-97.0); Mean Platelet Volume 12.7 fL (9.5-12.2); Monocytes % (A) 12.1 %; Neutrophils # (A) 6.14 X 10*3/uL (1.80-7.70); Neutrophils % (A) 74.1 %; Platelet Count 170 X 10*3/uL (140-440); RBC 3.86 X 10*6/uL (4.40-5.60); RDW 21.4 % (11.5-14.5); WBC 8.29 X 10*3/uL (4.50-10.00)
[2021-03-09 10:35] LABS: African American GFR (CKD) 9.1 (60.0-200.0); Anion Gap 15.9 mmol/L (4.00-12.00); BUN/Creat Ratio 6.47 Ratio (12.00-20.00); Blood Urea Nitrogen 43.4 mg/dL (9.0-27.0); Calcium 9.7 mg/dL (8.7-10.3); Carbon Dioxide 22.5 mmol/L (21.6-31.8); Non-African American GFR(CKD) 7.9 (60.0-200.0); Potassium 5.1 mmol/L (3.5-5.5)
[2021-03-09] MEDS ORDERED: RX INFO: IV CONTRAST WAS GIVEN 1 EACH MISC MISCELLANE PRN ×2 (11:12→13:59)
--- NOTE | 2021-03-09 14:12 | P.GSCN ---
History of Present Illness Consult date: 03/09/21 Reason for Consult: Worsening left foot wound Requesting physician: Sonya Camejo History of present illness: History a 66-year-old male patient is a history of peripheral arterial disease with a wound to his left TMA site recently had a debridement on 02/21/2021 with placement of wound VAC. He was sent over from the wound care center for worsening left lower extremity wound and pain. He does have a history of diabetes mellitus, end-stage renal disease on hemodialysis, and previous femoral to tibial bypass at the ankle in September of this year. He follows with Dr. Chou. States he had a wound VAC and went to the wound care center yesterday once a removed the wound that they sent him over for questionable worsening infection. And a foot x-ray that showed postop changes. Correlate for diabetes. Soft t issue swelling. Correlate for cellulitis. The patient states he has some pain in the foot however denies any pain in his left leg. He denies any fevers or chills, shortness of breath, chest pain, abdominal pain, nausea or vomiting. The patient was initially afebrile. He had an low-grade temp this morning of 100.0. No evidence of leukocytosis. He is silent with 18, CRP 5.1 Review of Systems A 14 point review of systems was completed all pertinent positives and negatives as stated in the HPI. 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 History of Any Multi-Drug Resistant Organisms: None Reported Past Surgical History: Coronary Bypass/CABG, Heart Catheterization, Orthopedic Surgery Additional Past Surgical History / Comment(s): Recent transplant biopsy, vein mapping last week at [facility] in preparation for new fistula, meningioma benign brain tumor removed at [facility], (rt) kidney transplant 2013 at [facility], 5 vessel cabg, colonoscopy-clear, lt knee arthroscopy, rt arm fistulas with R upper arm fistula removed, forehead skin cancer removal. lef ttoe amputation Past Anesthesia/Blood Transfusion Reactions: Motion Sickness Past Psychological History: No Psychological Hx Reported Smoking Status: Former smoker - Past Family History Father Family Medical History: Hypertension, Myocardial Infarction ([place]), Renal Disease Additional Family Medical History / Comment(s): Pt states his father had received blood, had a reaction-a [place] and at the age of 40yrs. Mother Family Medical History: Dementia Additional Family Medical History / Comment(s): Mother is 82 yrs old. Sister(s) Family Medical History: Hyperlipidemia, Renal Disease Additional Family Medical History / Comment(s): Sister is on hemodialysis. Medications and Allergies Home Medications Medication Instructions Recorded Confirmed Type allopurinoL [Zyloprim] 100 mg PO DAILY@0800 05/16/16 03/08/21 History FLUoxetine HCL [PROzac] 20 mg PO DAILY@0800 09/15/20 03/08/21 History Metoprolol Succinate [Toprol XL] 25 mg PO DAILY 09/15/20 03/08/21 History Aspirin 81 mg PO SUMOWEFR 10/14/20 03/08/21 History Clopidogrel [Plavix] 75 mg PO HS 10/14/20 03/08/21 History Sevelamer [Renvela] 1,600 mg PO AC-TID@08,12,17 10/14/20 03/08/21 History Sodium Bicarbonate Tab 650 mg PO BID@0800,1700 10/14/20 03/08/21 History glipiZIDE [Glucotrol XL] 2.5 mg PO DAILY 10/14/20 03/08/21 History Atorvastatin [Lipitor] 80 mg PO HS tab 10/19/20 03/08/21 Rx HYDROcodone/APAP 5-325MG [[place] 1 tab PO Q6HR PRN #12 tab 10/19/20 03/08/21 Rx 5-325] Midodrine [ProAmatine] 10 mg PO AC-TID PRN tab 10/19/20 03/08/21 Rx Pregabalin [Lyrica] 25 mg PO DAILY@0800 #3 cap 10/19/20 03/08/21 Rx Furosemide [Lasix] 20 mg PO DAILY 02/19/21 03/08/21 History Nepro-Mio 1 tab PO HS 02/19/21 03/08/21 History Potassium Chloride 10 meq PO DAILY 02/19/21 03/08/21 History rOPINIRole HCL [Requip] 1 mg PO HS 02/19/21 03/08/21 History Ciprofloxacin HCl 500 mg PO DAILY 42 Days #42 tab 02/27/21 03/08/21 Rx DAPTOmycin [Cubicin] 550 mg IVPB Q48H each 02/27/21 03/08/21 Rx metroNIDAZOLE [Flagyl] 500 mg PO TID 42 Days #126 tab 02/27/21 03/08/21 Rx Allergies Allergy/AdvReac Type Severity Reaction Status Date / Time No Known Allergies Allergy Verified 03/08/21 17:13 Surgical - Exam Vital Signs Temp Pulse Resp BP Pulse Ox 98 F 75 18 104/51 96 03/08/21 11:23 03/08/21 11:23 03/08/21 11:23 03/08/21 11:23 03/08/21 11:23 General appearance: The patient is alert, oriented, in no acute distress. HET: Head is normocephalic and atraumatic. Neck: Supple without lymphadenopathy. Trachea midline. Heart: S1 S2. Regular rate and rhythm. Lungs: Clear to auscultation. Abdomen: Soft, nontender, nondistended. Extremities: Left lower extremity with TMA wound with granulation with surrounding erythema. No drainage noted. No foul odor. No left popliteal, posterior tibialis or dorsalis pedis Doppler signal. Neurological: No focal deficits. Strength and sensation are grossly intact. Results - Labs 03/09/21 05:43 03/09/21 05:43 Abnormal Lab Results - Last 24 Hours (Table) 03/08/21 03/08/21 03/08/21 Range/Units 14:12 14:12 15:37 RBC 4.20 L (4.30-5.90) m/uL Hgb 12.7 L (13.0-17.5) gm/dL RDW 19.2 H (11.5-15.5) % Lymphocytes # 0.5 L (1.0-4.8) k/uL ESR 18 H (0-15) mm/hr Sodium 133 L (137-145) mmol/L Chloride 93 L (98-107) mmol/L BUN 41 H (9-20) mg/dL Creatinine 6.10 H (0.66-1.25) mg/dL POC Glucose (mg/dL) (75-99) mg/dL Total Bilirubin 2.4 H (0.2-1.3) mg/dL Alkaline Phosphatase 343 H (38-126) U/L C-Reactive Protein 5.1 H (<1.0) mg/dL 03/09/21 03/09/21 03/09/21 Range/Units 06:28 06:32 08:11 RBC (4.30-5.90) m/uL Hgb (13.0-17.5) gm/dL RDW (11.5-15.5) % Lymphocytes # (1.0-4.8) k/uL ESR (0-15) mm/hr Sodium (137-145) mmol/L Chloride (98-107) mmol/L BUN (9-20) mg/dL Creatinine (0.66-1.25) mg/dL POC Glucose (mg/dL) 47 L 48 L 61 L (75-99) mg/dL Total Bilirubin (0.2-1.3) mg/dL Alkaline Phosphatase (38-126) U/L C-Reactive Protein (<1.0) mg/dL Diabetes panel 03/08/21 Range/Units 14:12 Sodium 133 L (137-145) mmol/L Potassium 4.6 (3.5-5.1) mmol/L Chloride 93 L (98-107) mmol/L Carbon Dioxide 26 (22-30) mmol/L BUN 41 H (9-20) mg/dL Creatinine 6.10 H (0.66-1.25) mg/dL Glucose 87 (74-99) mg/dL Calcium 10.2 (8.4-10.2) mg/dL AST 21 (17-59) U/L ALT 10 (4-49) U/L Alkaline Phosphatase 343 H (38-126) U/L Total Protein 6.8 (6.3-8.2) g/dL Albumin 3.6 (3.5-5.0) g/dL Calcium panel 03/08/21 Range/Units 14:12 Calcium 10.2 (8.4-10.2) mg/dL Albumin 3.6 (3.5-5.0) g/dL Pituitary panel 03/08/21 Range/Units 14:12 Sodium 133 L (137-145) mmol/L Potassium 4.6 (3.5-5.1) mmol/L Chloride 93 L (98-107) mmol/L Carbon Dioxide 26 (22-30) mmol/L BUN 41 H (9-20) mg/dL Creatinine 6.10 H (0.66-1.25) mg/dL Glucose 87 (74-99) mg/dL Calcium 10.2 (8.4-10.2) mg/dL Adrenal panel 03/08/21 Range/Units 14:12 Sodium 133 L (137-145) mmol/L Potassium 4.6 (3.5-5.1) mmol/L Chloride 93 L (98-107) mmol/L Carbon Dioxide 26 (22-30) mmol/L BUN 41 H (9-20) mg/dL Creatinine 6.10 H (0.66-1.25) mg/dL Glucose 87 (74-99) mg/dL Calcium 10.2 (8.4-10.2) mg/dL Total Bilirubin 2.4 H (0.2-1.3) mg/dL AST 21 (17-59) U/L ALT 10 (4-49) U/L Alkaline Phosphatase 343 H (38-126) U/L Total Protein 6.8 (6.3-8.2) g/dL Albumin 3.6 (3.5-5.0) g/dL - Imaging Comments: X-ray left foot: Postop changes. Correlate for diabetes. Soft tissue swelling, correlate for cellulitis. Assessment and Plan Assessment: 1. Nonhealing left foot wound 2. Nonpalpable pulses on left lower extremity 3. History of peripheral arterial disease, status post left fem-tib artery bypass 10/02 4. End-stage renal disease on hemodialysis 5. Diabetes mellitus Plan: 1. Consult to wound clinic for local wound care 2. CT angiogram left lower extremity ordered 3. Continue current IV antibiotics 4. Continue hemodialysis per recommendations from nephrology 5. Hold Plavix for now 6. Further recommendations forthcoming based on CT angiogram and clinical course Thank you for this consultation, and allowing us take part in the plan of care of your patient during his hospital stay. The impression and plan of care has been dictated as directed. Dr. Chou I performed a history and examination of this patient, discussed the same with the dictator. I agree with the dictator's note ,documented as a scribe. Any additional findings or plans will be noted.
[2021-03-09 14:44] LABS: Glucose,Whole Blood 86 mg/dL (75-99)
[2021-03-09] MEDS: HYDROcodone/APAP 5-325MG 1 EACH TAB PO PRN (15:21)
[2021-03-09] MEDS: MIDODRINE 5 MG TAB PO PRN (15:22)
[2021-03-09 18:28] LABS: Glucose,Whole Blood 104 mg/dL (75-99)
--- NOTE | 2021-03-09 19:00 | P.PN ---
Subjective Progress Note Date: 03/09/21 The patient was seen and examined at the bedside on 03/09. He reported ongoing left foot pain, currently at an 8 out of 10. He denied any additional complaints. Objective - Vital Signs Vital signs: Vital Signs Temp 98.6 F 03/09/21 15:51 Pulse 67 03/09/21 15:05 Resp 18 03/09/21 16:55 BP 89/47 03/09/21 15:51 Pulse Ox 99 03/09/21 15:05 Intake & Output 03/08/21 03/09/21 03/09/21 18:59 06:59 18:59 Intake Total 536 Output Total 3000 Balance -2464 Weight 90.718 kg 90.718 kg Intake: Oral 236 Hemodialysis 300 Output: Hemodialysis 3000 Other: # Voids 1 - Exam General: Non-toxic, in no acute distress, appears stated age, normal weight HEENT: NC/AT, anicteric sclerae, moist conjunctiva, no lid-lag, PERRLA Cardiovascular: S1/S2 wnl, no murmurs, rubs, or gallops Lungs: Clear to auscultation, normal respiratory effort, no accessory muscle use Abdominal: Soft, non-tender, non-distended, no guarding, rebound, or rigidity Skin: Left mid-foot amputation w/ wound w/ surrounding erythema and bordering necrosis Extremities: No edema or contractures Psychiatric: Alert and oriented to person, place and time, appropriate affect Neuro: CN II-XII grossly intact, Strength 5/5 in all 4 extremities, Speech intact, Sensation to light touch grossly intact throughout - Labs CBC & Chem 7: 03/09/21 05:43 03/09/21 05:43 Labs: Abnormal Lab Results - Last 24 Hours (Table) 03/09/21 03/09/21 03/09/21 Range/Units 05:43 05:43 06:28 RBC 3.86 L (4.40-5.60) X 10*6/uL Hgb 11.3 L (13.0-17.0) g/dL Hct 35.8 L (39.6-50.0) % MCHC 31.6 L (32.0-37.0) g/dL RDW 21.4 H (11.5-14.5) % MPV 12.7 H (9.5-12.2) fL Sodium 132 L (135-145) mmol/L Chloride 93 L (96-109) mmol/L Anion Gap 15.90 H (4.00-12.00) mmol/L BUN 43.4 H (9.0-27.0) mg/dL Creatinine 6.7 H (0.6-1.5) mg/dL Est GFR (CKD-EPI)AfAm 9.1 L (60.0-200.0) Est GFR (CKD-EPI)NonAf 7.9 L (60.0-200.0) BUN/Creatinine Ratio 6.47 L (12.00-20.00) Ratio Glucose 44 L* (70-110) mg/dL POC Glucose (mg/dL) 47 L (75-99) mg/dL 03/09/21 03/09/21 03/09/21 Range/Units 06:32 08:11 18:26 RBC (4.40-5.60) X 10*6/uL Hgb (13.0-17.0) g/dL Hct (39.6-50.0) % MCHC (32.0-37.0) g/dL RDW (11.5-14.5) % MPV (9.5-12.2) fL Sodium (135-145) mmol/L Chloride (96-109) mmol/L Anion Gap (4.00-12.00) mmol/L BUN (9.0-27.0) mg/dL Creatinine (0.6-1.5) mg/dL Est GFR (CKD-EPI)AfAm (60.0-200.0) Est GFR (CKD-EPI)NonAf (60.0-200.0) BUN/Creatinine Ratio (12.00-20.00) Ratio Glucose (70-110) mg/dL POC Glucose (mg/dL) 48 L 61 L 104 H (75-99) mg/dL Microbiology - Last 24 Hours (Table) 03/08/21 16:20 Blood Culture - Preliminary Blood No Growth after 24 hours Assessment and Plan Plan: Left foot diabetic ulcer with surrounding necrosis -Vascular surgery recommendations appreciated -Discussed the case with vascular surgeon title i paraprofessional regarding surrounding necrosis (Dr Macias who noted that she will re-evaluate the patient tonight) -Follow up blood cultures -Continue with broad-spectrum antibiotics -Infectious disease consulted Chronic conditions: ESRD, type II DM, hypertension, hyperlipidemia, coronary artery disease, gout -Continue with home meds DVT prophylaxis -heparin subq Discussed with: Patient, daughter Anticipated discharge date: 2-[address]: Home
[2021-03-09] MEDS: ATORVASTATIN 80 MG TAB PO SCH (20:29)
[2021-03-09 20:30] LABS: Glucose,Whole Blood 108 mg/dL (75-99)
[2021-03-09] MEDS: CEFEPIME 1 GM in SODIUM CHLORIDE 0.9% 50 ML IVPB SCH (20:45)
[2021-03-10] MEDS: metroNIDAZOLE-NS PMX 500 MG in SALINE 1 100ML.BAG IVPB SCH ×3 (00:50→16:38)
[2021-03-10 06:56] LABS: Glucose,Whole Blood 80 mg/dL (75-99)
[2021-03-10] MEDS: INSULIN ASPART (NovoLOG) 100 UNIT/ML VIAL SQ SCH ×4 (07:04→20:13)
[2021-03-10] MEDS: FLUoxetine HCL 20 MG CAP PO SCH (08:26)
[2021-03-10] MEDS: PREGABALIN 25 MG CAP PO SCH (08:26)
[2021-03-10] MEDS: ASPIRIN 81 MG PO SCH (08:26)
[2021-03-10] MEDS: HYDROcodone/APAP 5-325MG 1 EACH TAB PO PRN (08:26)
[2021-03-10] MEDS: HEPARIN SODIUM,PORCINE/PF 5,000 UNIT/0.5 ML SYRINGE SQ SCH ×2 (08:26→20:23)
[2021-03-10] MEDS: SEVELAMER 800 MG TAB PO SCH ×3 (08:27→16:46)
[2021-03-10] MEDS: allopurinoL 100 MG TAB PO SCH (08:27)
[2021-03-10] MEDS: METOPROLOL SUCCINATE (ER) 25 MG TAB.ER.24H PO SCH (08:27)
[2021-03-10] MEDS: FUROSEMIDE 20 MG TAB PO SCH (08:27)
[2021-03-10] MEDS: SODIUM BICARBONATE TAB 650 MG TAB PO SCH ×2 (08:27→17:23)
--- NOTE | 2021-03-10 10:02 | P.CONS ---
History of Present Illness - Reason for Consult Consult date: 03/10/21 wound care - History of Present Illness This is a 65-year-old patient known to the wound care center with a nonhealing ulceration to the left metatarsal indication site. Patient has been following in the wound care center for multiple weeks. Patient was recently hospitalized and had a surgical debridement. He was seen last week in the wound care center the ulceration was showing improvement however this week, the ulceration has declined. Increased ecchymosis and dusky appearance noted the site is painful to palpation. The wound is currently classified as a Full Thickness With Exposed Support Structures wound with etiology of Open Surgical Wound and is located on the Left Amputation Site - Transmetatarsal. The wound measures 5.4cm length x 5.8cm width x 2.5cm depth; 24.599cm^2 area and 61.497cm^3 volume. There is fascia exposed. There is no tunneling or undermining noted. There is a medium amount of serosanguineous drainage noted. The wound margin is distinct with the outline attached to the wound base. There is large (67-100%) red granulation within the wound bed. There is a small (1-33%) amount of necrotic tissue within the wound bed including Adherent Slough. The periwound skin appearance exhibited: Scarring, Maceration, Cyanosis, Mottled, Rubor. The periwound skin appearance did not exhibit: Callus, Crepitus, Excoriation, Induration, Rash, Dry/Scaly, Atrophie [place], Ecchymosis, Hemosiderin Staining, Pallor, Erythema. Periwound temperature was noted as No Abnormality. The periwound has tenderness on palpation. he is currently on antibiotics. Review Of Systems: Constitutional: No fever, no chills, no night sweats. No weight change. No weakness, fatigue or lethargy. No daytime sleepiness. Integumentary:reports wounds, no lesions. No rash or pruritus. No unusual bruising. No change in hair or nails. Physical exam: General Appearance: Alert, cooperative, no distress, appears stated age. Skin: See HPI all other Skin color, texture, tugor normal, no rashes or lesions. Neurologic: Alert oriented x3 Assessment: 1. Nonhealing ulceration with bone exposure without necrosis 2. Diabetic foot ulcer 3. Atherosclerosis of chilkat arteries of left leg with ulceration of other part of foot Plan: 1. Apply absorptive silver, saline moist gauze, dry gauze, rolled gauze and secure with paper tape. 2. Patient will follow-up in the wound care center next MondayMarch 15 at 8:00 Thank you for the consultation any questions please contact the wound care center DNP note has been reviewed and discussed with Dr. Fuentes and the impression and plan of care has been directed as dictated. 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 History of Any Multi-Drug Resistant Organisms: None Reported Past Surgical History: Coronary Bypass/CABG, Heart Catheterization, Orthopedic Surgery Additional Past Surgical History / Comment(s): Recent transplant biopsy, vein mapping last week at [facility] in preparation for new fistula, meningioma benign brain tumor removed at [facility], (rt) kidney transplant [address] [facility], 5 vessel cabg, colonoscopy-clear, lt knee arthroscopy, rt arm fistulas with R upper arm fistula removed, forehead skin cancer removal. 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 Pt states he has anxiety and depression and is on medication for this but he feels the medications do not work that well. He states his depression is stable and he has never had thoughts of suicide. Smoking Status: Former smoker Past Alcohol Use History: None Reported Additional Past Alcohol Use History / Comment(s): Quit smoking approximately 5 months ago,previous to that he smoked for 25 years. Past Drug Use History: None Reported - Past Family History Father Family Medical History: Hypertension, Myocardial Infarction ([place]), Renal Disease Additional Family Medical History / Comment(s): Pt states his father had received blood, had a reaction-a [place] and at the age of 40yrs. Mother Family Medical History: Dementia Additional Family Medical History / Comment(s): Mother is 82 yrs old. Sister(s) Family Medical History: Hyperlipidemia, Renal Disease Additional Family Medical History / Comment(s): Sister is on hemodialysis. Medications and Allergies Home Medications Medication Instructions Recorded Confirmed Type allopurinoL [Zyloprim] 100 mg PO DAILY@0800 05/16/16 03/08/21 History FLUoxetine HCL [PROzac] 20 mg PO DAILY@0800 09/15/20 03/08/21 History Metoprolol Succinate [Toprol XL] 25 mg PO DAILY 09/15/20 03/08/21 History Aspirin 81 mg PO SUMOWEFR 10/14/20 03/08/21 History Clopidogrel [Plavix] 75 mg PO HS 10/14/20 03/08/21 History Sevelamer [Renvela] 1,600 mg PO AC-TID@08,12,17 10/14/20 03/08/21 History Sodium Bicarbonate Tab 650 mg PO BID@0800,1700 10/14/20 03/08/21 History glipiZIDE [Glucotrol XL] 2.5 mg PO DAILY 10/14/20 03/08/21 History Atorvastatin [Lipitor] 80 mg PO HS tab 10/19/20 03/08/21 Rx HYDROcodone/APAP 5-325MG [[place] 1 tab PO Q6HR PRN #12 tab 10/19/20 03/08/21 Rx 5-325] Midodrine [ProAmatine] 10 mg PO AC-TID PRN tab 10/19/20 03/08/21 Rx Pregabalin [Lyrica] 25 mg PO DAILY@0800 #3 cap 10/19/20 03/08/21 Rx Furosemide [Lasix] 20 mg PO DAILY 02/19/21 03/08/21 History Nepro-Mio 1 tab PO HS 02/19/21 03/08/21 History Potassium Chloride 10 meq PO DAILY 02/19/21 03/08/21 History rOPINIRole HCL [Requip] 1 mg PO HS 02/19/21 03/08/21 History Ciprofloxacin HCl 500 mg PO DAILY 42 Days #42 tab 02/27/21 03/08/21 Rx DAPTOmycin [Cubicin] 550 mg IVPB Q48H each 02/27/21 03/08/21 Rx metroNIDAZOLE [Flagyl] 500 mg PO TID 42 Days #126 tab 02/27/21 03/08/21 Rx Allergies Allergy/AdvReac Type Severity Reaction Status Date / Time No Known Allergies Allergy Verified 03/08/21 17:13 Physical Exam Vitals: Vital Signs Temp Pulse Resp BP Pulse Ox 03/10/21 08:00 98 F 78 16 94/49 95 03/10/21 02:56 98.6 F 62 19 101/53 96 03/09/21 20:00 60 16 03/09/21 19:20 97.8 F 60 17 96/48 96 03/09/21 16:55 18 03/09/21 15:51 98.6 F 18 89/47 03/09/21 15:05 98 F 67 16 90/50 99 Intake and Output 03/09/21 03/10/21 03/10/21 22:59 06:59 14:59 Intake Total 536 370 Output Total 3000 150 Balance -2464 220 Intake: Intake, IV Titration 150 Amount DAPTOmycin 550 mg In 100 Sodium Chloride 0.9% 50 ml @ 100 mls/hr IVPB Q48H [facility] Rx#:[id number] metroNIDAZOLE-NS PMX 500 50 mg In Saline 1 100ml.bag @ 100 mls/hr IVPB Q8HR [facility] Rx#:[id number] Oral 236 220 Hemodialysis 300 Output: Urine 150 Hemodialysis 3000 Other: Voiding Method Urinal Urinal # Voids 1 1 Weight 90.718 kg Results CBC & Chem 7: 03/09/21 05:43 03/09/21 05:43 Labs: Abnormal Lab Results - Last 24 Hours (Table) 03/09/21 03/09/21 03/09/21 Range/Units 05:43 18:26 20:28 Sodium 132 L (135-145) mmol/L Chloride 93 L (96-109) mmol/L Anion Gap 15.90 H (4.00-12.00) mmol/L BUN 43.4 H (9.0-27.0) mg/dL Creatinine 6.7 H (0.6-1.5) mg/dL Est GFR (CKD-EPI)AfAm 9.1 L (60.0-200.0) Est GFR (CKD-EPI)NonAf 7.9 L (60.0-200.0) BUN/Creatinine Ratio 6.47 L (12.00-20.00) Ratio Glucose 44 L* (70-110) mg/dL POC Glucose (mg/dL) 104 H 108 H (75-99) mg/dL Microbiology - Last 24 Hours (Table) 03/08/21 16:20 Blood Culture - Preliminary Blood No Growth after 24 hours Assessment and Plan (1) Non-healing ulcer of left foot with necrosis of bone Current Visit: Yes Status: Acute Code(s): L97.524 - NON-PRS CHRONIC ULCER OTH PRT LEFT FOOT W NECROSIS OF BONE SNOMED Code(s): 239229008 (2) Atherosclerosis of [place] arteries of left leg with ulceration of other part of foot Current Visit: No Status: Acute Code(s): I70.245 - ATHSCL [place] ARTERIES OF LEFT LEG W ULCERATION OTH PRT FOOT SNOMED Code(s): 288003882 (3) Diabetic foot ulcer Current Visit: No Status: Acute Code(s): E11.621 - TYPE 2 DIABETES MELLITUS WITH FOOT ULCER; L97.509 - NON-PRESSURE CHRONIC ULCER OTH PRT UNSP FOOT W UNSP SEVERITY SNOMED Code(s): 546287701
[2021-03-10 10:37] LABS: Anisocytosis Slight; HCT 41.7 % (39.0-53.0); HGB 12.7 gm/dL (13.0-17.5); Hypochromasia Moderate; MCH 29.1 pg (25.0-35.0); MCHC 30.4 g/dL (31.0-37.0); MCV 95.7 fL (80.0-100.0); Macrocytosis Slight; Platelet Count 155 k/uL (150-450); RBC 4.36 m/uL (4.30-5.90); RDW 19.3 % (11.5-15.5); WBC 7.5 k/uL (3.8-10.6)
[2021-03-10 10:39] LABS: African American GFR (CKD) 14 (>60 ml/min/1.73 sqM); Anion Gap 14 mmol/L; Blood Urea Nitrogen 29 mg/dL (9-20); Calcium 9.6 mg/dL (8.4-10.2); Carbon Dioxide 20 mmol/L (22-30); Chloride 96 mmol/L (98-107); Glucose 61 mg/dL (74-99); Non-African American GFR(CKD) 12 (>60 ml/min/1.73 sqM); Potassium 4.7 mmol/L (3.5-5.1); Sodium 130 mmol/L (137-145)
--- NOTE | 2021-03-10 11:29 | P.CONS ---
History of Present Illness - Reason for Consult Consult date: 03/09/21 left foot infection Requesting physician: Qian Omer - Chief Complaint left foot worsening wound x days - History of Present Illness History of Present Illness : Patient is a 66-year male with a past medical history significant for end-stage renal disease on hemodialysis the patient was recently admitted to the hospital in this patient did have a left foot transmetatarsal amputation site infected hematoma with underlying osteomyelitis culture positive for VRE Klebsiella Citrobacter and Bacteroides fragilis patient was discharged home on daptomycin procedures along with oral Cipro and Flagyl patient was evaluated at the wound care center yesterday and there was concern for ischemia to his left foot, for the patient has been sent to the ER for admission and evaluation by the vascular surgery patient currently denies having any fever or any chills, the patient does have any worsening pain to the left foot though overnight the patient was noticed to have blackish discoloration around the foot margin with no foul-smelling drainage P denies having any chest pain no shortness of the cough no nausea no apparent abdominal pain or diarrhea patient on presentation the hospital was afebrile this morning he did spike low-grade fever 100 Fahrenheit patient did have a normal white count with no left shift creatinine is elevated because of his underlying renal insufficiency chronic PCR was negative patient has been continue daptomycin cefepime has been added along with the oral Flagyl infectious he was consulted for further management of antibiotic therapy Review of system: CONSTITUTIONAL: Positive for weakness denies fever. EYES: No complaint. ENT: No complaint. RESPIRATORY: No complaint. CARDIOVASCULAR: No complaint. GENITOURINARY: No complaint. GASTROINTESTINAL: No complaint. MUSCULOSKELETAL: As per history of present illness. INTEGUMENTARY : No complaint. PSYCHOLOGIC: No complaint. ENDOCRINE: No complaint. NEUROLOGIC: No complaint. Past medical history : Reviewed, documented below Past surgical history : Reviewed, documented below Social history: Reviewed, documented below Medications: Reviewed, as documented below EXAMINATION: Vital sigans= Reviewed and documented below GENERAL DESCRIPTION: Elderly male lying in bed, no distress. No tachypnea or accessory muscle of respiration use. HEENT: Shows Pallor , no scleral icterus. Oral mucous membrane is dry. NECK: Trachea central, no thyromegaly. LUNGS: Unlabored breathing. Clear to auscultation anteriorly. No wheeze or crackle. HEART: S1, S2, regular rate and rhythm. ABDOMEN: Soft, no tenderness , guarding or rigidity EXTREMITIES: Left foot transmetatarsal amputation site wound base looks clean however did have a blackish discoloration around the wound margin with no foul- smelling drainage SKIN: No rash, no masses palpable. NEUROLOGICAL: The patient is awake, alert, oriented x3, mood and affect normal. LABS AND RADIOLOGY: Reviewed results see below Assessment : Patient with a left foot transmetatarsal amputation site wound infected hematoma and underlying osteomyelitis in this patient recent culture positive for VRE Citrobacter Bacteroides species overall wound base looks clean with no worsening cellulitis or infection ischemia remains to be an issue with the vascular surgery following the patient Plan: 1-patient to continue the daptomycin cefepime switch the Flagyl to p.o. 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 History of Any Multi-Drug Resistant Organisms: None Reported Past Surgical History: Coronary Bypass/CABG, Heart Catheterization, Orthopedic S urgery Additional Past Surgical History / Comment(s): Recent transplant biopsy, vein mapping last week at [facility] in preparation for new fistula, meningioma benign brain tumor removed at [facility], (rt) kidney transplant 2012 at [facility], 5 vessel cabg, colonoscopy-clear, lt knee arthroscopy, rt arm fistulas with R upper arm fistula removed, forehead skin cancer removal. lef ttoe amputation Past Anesthesia/Blood Transfusion Reactions: Motion Sickness Past Psychological History: No Psychological Hx Reported Smoking Status: Former smoker - Past Family History Father Family Medical History: Hypertension, Myocardial Infarction (MA), Renal Disease Additional Family Medical History / Comment(s): Pt states his father had received blood, had a reaction-a MA and at the age of 40yrs. Mother Family Medical History: Dementia Additional Family Medical History / Comment(s): Mother is 82 yrs old. Sister(s) Family Medical History: Hyperlipidemia, Renal Disease Additional Family Medical History / Comment(s): Sister is on hemodialysis. Medications and Allergies Home Medications Medication Instructions Recorded Confirmed Type allopurinoL [Zyloprim] 100 mg PO DAILY@0800 05/16/16 03/08/21 History FLUoxetine HCL [PROzac] 20 mg PO DAILY@0800 09/15/20 03/08/21 History Metoprolol Succinate [Toprol XL] 25 mg PO DAILY 09/15/20 03/08/21 History Aspirin 81 mg PO SUMOWEFR 10/14/20 03/08/21 History Clopidogrel [Plavix] 75 mg PO HS 10/14/20 03/08/21 History Sevelamer [Renvela] 1,600 mg PO AC-TID@08,12,17 10/14/20 03/08/21 History Sodium Bicarbonate Tab 650 mg PO BID@0800,1700 10/14/20 03/08/21 History glipiZIDE [Glucotrol XL] 2.5 mg PO DAILY 10/14/20 03/08/21 History Atorvastatin [Lipitor] 80 mg PO HS tab 10/19/20 03/08/21 Rx HYDROcodone/APAP 5-325MG [[place] 1 tab PO Q6HR PRN #12 tab 10/19/20 03/08/21 Rx 5-325] Midodrine [ProAmatine] 10 mg PO AC-TID PRN tab 10/19/20 03/08/21 Rx Pregabalin [Lyrica] 25 mg PO DAILY@0800 #3 cap 10/19/20 03/08/21 Rx Furosemide [Lasix] 20 mg PO DAILY 02/19/21 03/08/21 History Nepro-Mio 1 tab PO HS 02/19/21 03/08/21 History Potassium Chloride 10 meq PO DAILY 02/19/21 03/08/21 History rOPINIRole HCL [Requip] 1 mg PO HS 02/19/21 03/08/21 History Ciprofloxacin HCl 500 mg PO DAILY 42 Days #42 tab 02/27/21 03/08/21 Rx DAPTOmycin [Cubicin] 550 mg IVPB Q48H each 02/27/21 03/08/21 Rx metroNIDAZOLE [Flagyl] 500 mg PO TID 42 Days #126 tab 02/27/21 03/08/21 Rx Allergies Allergy/AdvReac Type Severity Reaction Status Date / Time No Known Allergies Allergy Verified 03/08/21 17:13 Physical Exam Vitals: Vital Signs Temp Pulse Resp BP Pulse Ox 03/09/21 08:36 105/54 03/09/21 08:16 100.0 F H 92 16 97/51 95 03/09/21 06:34 96.7 F L 96 16 117/57 94 L 03/09/21 03:00 98.6 F 74 22 95/59 96 03/09/21 02:00 98.4 F 84 22 110/68 97 03/09/21 00:00 98 F 77 20 108/74 97 03/08/21 18:21 79 18 109/54 97 03/08/21 16:39 66 18 97/52 97 Results CBC & Chem 7: 03/10/21 09:57 03/10/21 09:57 Labs: Abnormal Lab Results - Last 24 Hours (Table) 03/08/21 03/08/21 03/08/21 Range/Units 14:12 14:12 15:37 RBC 4.20 L (4.30-5.90) m/uL Hgb 12.7 L (13.0-17.5) gm/dL Hct (39.6-50.0) % MCHC (32.0-37.0) g/dL RDW 19.2 H (11.5-15.5) % MPV (9.5-12.2) fL Lymphocytes # 0.5 L (1.0-4.8) k/uL ESR 18 H (0-15) mm/hr Sodium 133 L (137-145) mmol/L Chloride 93 L (98-107) mmol/L Anion Gap (4.00-12.00) mmol/L BUN 41 H (9-20) mg/dL Creatinine 6.10 H (0.66-1.25) mg/dL Est GFR (CKD-EPI)AfAm (60.0-200.0) Est GFR (CKD-EPI)NonAf (60.0-200.0) BUN/Creatinine Ratio (12.00-20.00) Ratio Glucose (70-110) mg/dL POC Glucose (mg/dL) (75-99) mg/dL Total Bilirubin 2.4 H (0.2-1.3) mg/dL Alkaline Phosphatase 343 H (38-126) U/L C-Reactive Protein 5.1 H (<1.0) mg/dL 03/09/21 03/09/21 03/09/21 Range/Units 05:43 05:43 06:28 RBC 3.86 L (4.30-5.90) m/uL Hgb 11.3 L (13.0-17.5) gm/dL Hct 35.8 L (39.6-50.0) % MCHC 31.6 L (32.0-37.0) g/dL RDW 21.4 H (11.5-15.5) % MPV 12.7 H (9.5-12.2) fL Lymphocytes # (1.0-4.8) k/uL ESR (0-15) mm/hr Sodium 132 L (137-145) mmol/L Chloride 93 L (98-107) mmol/L Anion Gap 15.90 H (4.00-12.00) mmol/L BUN 43.4 H (9-20) mg/dL Creatinine 6.7 H (0.66-1.25) mg/dL Est GFR (CKD-EPI)AfAm 9.1 L (60.0-200.0) Est GFR (CKD-EPI)NonAf 7.9 L (60.0-200.0) BUN/Creatinine Ratio 6.47 L (12.00-20.00) Ratio Glucose 44 L* (70-110) mg/dL POC Glucose (mg/dL) 47 L (75-99) mg/dL Total Bilirubin (0.2-1.3) mg/dL Alkaline Phosphatase (38-126) U/L C-Reactive Protein (<1.0) mg/dL 03/09/21 03/09/21 Range/Units 06:32 08:11 RBC (4.30-5.90) m/uL Hgb (13.0-17.5) gm/dL Hct (39.6-50.0) % MCHC (32.0-37.0) g/dL RDW (11.5-15.5) % MPV (9.5-12.2) fL Lymphocytes # (1.0-4.8) k/uL ESR (0-15) mm/hr Sodium (137-145) mmol/L Chloride (98-107) mmol/L Anion Gap (4.00-12.00) mmol/L BUN (9-20) mg/dL Creatinine (0.66-1.25) mg/dL Est GFR (CKD-EPI)AfAm (60.0-200.0) Est GFR (CKD-EPI)NonAf (60.0-200.0) BUN/Creatinine Ratio (12.00-20.00) Ratio Glucose (70-110) mg/dL POC Glucose (mg/dL) 48 L 61 L (75-99) mg/dL Total Bilirubin (0.2-1.3) mg/dL Alkaline Phosphatase (38-126) U/L C-Reactive Protein (<1.0) mg/dL
[2021-03-10 12:04] LABS: Glucose,Whole Blood 44 mg/dL (75-99)
--- NOTE | 2021-03-10 12:14 | P.PN ---
Subjective Patient is seen in follow-up for end-stage renal disease. No problems with dialysis yesterday. Scheduled for CTA of the foot today. No chest pain or shortness of breath. Vital signs are stable. General: The patient appeared well nourished and normally developed. HEENT: Head exam is unremarkable. LUNGS: Breath sounds decreased. HEART: Rate and Rhythm are regular. ABDOMEN: Soft, no distention. EXTREMITITES: No clubbing, cyanosis, or edema. No drainage noted. Toe amputation noted. Objective - Vital Signs Vital signs: Vital Signs Temp 98 F 03/10/21 08:00 Pulse 78 03/10/21 08:00 Resp 16 03/10/21 08:00 BP 94/49 03/10/21 08:00 Pulse Ox 95 03/10/21 08:00 Intake & Output 03/09/21 03/10/21 03/10/21 18:59 06:59 18:59 Intake Total 536 370 Output Total 3000 150 150 Balance -2464 220 -150 Weight 90.718 kg Intake: Intake, IV Titration 150 Amount DAPTOmycin 550 mg In 100 Sodium Chloride 0.9% 50 ml @ 100 mls/hr IVPB Q48H FERNANDO Rx#:[id number] metroNIDAZOLE-NS PMX 500 50 mg In Saline 1 100ml.bag @ 100 mls/hr IVPB Q8HR FERNANDO Rx#:[id number] Oral 236 220 Hemodialysis 300 Output: Urine 150 150 Hemodialysis 3000 Other: Voiding Method Urinal Urinal # Voids 1 1 1 - Labs CBC & Chem 7: 03/10/21 09:57 03/10/21 09:57 Labs: Abnormal Lab Results - Last 24 Hours (Table) 03/09/21 03/09/21 03/10/21 Range/Units 18:26 20:28 09:57 Hgb 12.7 L (13.0-17.5) gm/dL MCHC 30.4 L (31.0-37.0) g/dL RDW 19.3 H (11.5-15.5) % Sodium (137-145) mmol/L Chloride (98-107) mmol/L Carbon Dioxide (22-30) mmol/L BUN (9-20) mg/dL Creatinine (0.66-1.25) mg/dL Glucose (74-99) mg/dL POC Glucose (mg/dL) 104 H 108 H (75-99) mg/dL Plasma Lactic Acid Hilton (0.7-2.0) mmol/L 03/10/21 03/10/21 03/10/21 Range/Units 09:57 09:57 12:02 Hgb (13.0-17.5) gm/dL MCHC (31.0-37.0) g/dL RDW (11.5-15.5) % Sodium 130 L (137-145) mmol/L Chloride 96 L (98-107) mmol/L Carbon Dioxide 20 L (22-30) mmol/L BUN 29 H (9-20) mg/dL Creatinine 4.83 H (0.66-1.25) mg/dL Glucose 61 L (74-99) mg/dL POC Glucose (mg/dL) 44 L (75-99) mg/dL Plasma Lactic Acid Hilton 2.3 H* (0.7-2.0) mmol/L Microbiology - Last 24 Hours (Table) 03/08/21 16:20 Blood Culture - Preliminary Blood No Growth after 24 hours Assessment and Plan Plan: Assessment: 1. End-stage renal disease maintained on hemodialysis on Monday schedule. 2. Left foot wound status post debridement and wound VAC placement. On IV antibiotics. 3. Chronic hypotension maintained on midodrine. 4. Chronic kidney disease mineral bone disease maintained on Renvela. Also on bicarb. 5. Diabetes mellitus. 6. Hyponatremia secondary to chronic kidney disease. Plan: Hemodialysis tomorrow. CTA today.
[2021-03-10 12:25] LABS: Glucose,Whole Blood 51 mg/dL (75-99)
[2021-03-10 12:44] LABS: Glucose,Whole Blood 54 mg/dL (75-99)
[2021-03-10 13:02] LABS: Glucose,Whole Blood 54 mg/dL (75-99)
--- NOTE | 2021-03-10 13:11 | P.PN ---
Subjective Progress Note Date: 03/10/21 Patient seen and examined sitting up in bed. No acute changes through the night. He's been afebrile. No increased pain to the left lower extremity. He underwent dialysis yesterday. He is scheduled for a CT angiogram of the left lower extremity today. He did have some changes to the tissues on his left foot. He is currently on cefepime and daptomycin. Objective - Vital Signs Vital signs: Vital Signs Temp 98 F 03/10/21 08:00 Pulse 78 03/10/21 08:00 Resp 16 03/10/21 08:00 BP 94/49 03/10/21 08:00 Pulse Ox 95 03/10/21 08:00 Intake & Output 03/09/21 03/10/21 03/10/21 18:59 06:59 18:59 Intake Total 536 370 Output Total 3000 150 150 Balance -2464 220 -150 Weight 90.718 kg Intake: Intake, IV Titration 150 Amount DAPTOmycin 550 mg In 100 Sodium Chloride 0.9% 50 ml @ 100 mls/hr IVPB Q48H FERNANDO Rx#:[id number] metroNIDAZOLE-NS PMX 500 50 mg In Saline 1 100ml.bag @ 100 mls/hr IVPB Q8HR FERNANDO Rx#:[id number] Oral 236 220 Hemodialysis 300 Output: Urine 150 150 Hemodialysis 3000 Other: Voiding Method Urinal Urinal # Voids 1 1 1 - Exam General appearance: The patient is alert, oriented, appears in no acute distress. HET: Head is normocephalic and atraumatic. Neck: Supple without lymphadenopathy. Trachea midline. Heart: S1 S2. Regular rate and rhythm. Lungs: No crackles or wheezes are heard. Abdomen: Soft, nontender, nondistended. Extremities: Left lower extremity TMA wound, with some surrounding necrosis. Minimal drainage and no odor noted. Nonpalpable pulses. Neurological: No focal deficits. Alert and oriented 3. - Labs CBC & Chem 7: 03/10/21 09:57 03/10/21 09:57 Labs: Abnormal Lab Results - Last 24 Hours (Table) 03/09/21 03/09/21 03/10/21 Range/Units 18:26 20:28 09:57 Hgb 12.7 L (13.0-17.5) gm/dL MCHC 30.4 L (31.0-37.0) g/dL RDW 19.3 H (11.5-15.5) % Sodium (137-145) mmol/L Chloride (98-107) mmol/L Carbon Dioxide (22-30) mmol/L BUN (9-20) mg/dL Creatinine (0.66-1.25) mg/dL Glucose (74-99) mg/dL POC Glucose (mg/dL) 104 H 108 H (75-99) mg/dL Plasma Lactic Acid Hilton (0.7-2.0) mmol/L 03/10/21 03/10/21 03/10/21 Range/Units 09:57 09:57 12:02 Hgb (13.0-17.5) gm/dL MCHC (31.0-37.0) g/dL RDW (11.5-15.5) % Sodium 130 L (137-145) mmol/L Chloride 96 L (98-107) mmol/L Carbon Dioxide 20 L (22-30) mmol/L BUN 29 H (9-20) mg/dL Creatinine 4.83 H (0.66-1.25) mg/dL Glucose 61 L (74-99) mg/dL POC Glucose (mg/dL) 44 L (75-99) mg/dL Plasma Lactic Acid Hilton 2.3 H* (0.7-2.0) mmol/L 03/10/21 03/10/21 Range/Units 12:24 12:43 Hgb (13.0-17.5) gm/dL MCHC (31.0-37.0) g/dL RDW (11.5-15.5) % Sodium (137-145) mmol/L Chloride (98-107) mmol/L Carbon Dioxide (22-30) mmol/L BUN (9-20) mg/dL Creatinine (0.66-1.25) mg/dL Glucose (74-99) mg/dL POC Glucose (mg/dL) 51 L 54 L (75-99) mg/dL Plasma Lactic Acid Hilton (0.7-2.0) mmol/L Microbiology - Last 24 Hours (Table) 03/08/21 16:20 Blood Culture - Preliminary Blood No Growth after 24 hours Assessment and Plan Assessment: 1. Nonhealing left foot wound 2. History of peripheral arterial disease, status post left fem-tib artery bypass 5/21, nonfunctioning 3. End-stage renal disease on hemodialysis 4. Diabetes mellitus Plan: 1. Nothing By mouth after midnight 2. CT angiogram left lower extremity ordered and reviewed per Dr. Macias 3. Continue current IV antibiotics 4. Continue hemodialysis per recommendations from nephrology 5. Hold Plavix for now, may resume after surgery 6. Consult Cardiology for surgical clearance for Left BKA 7. Plan for left [id number] amputation tomorrow if cleared by cardiology Thank you for this consultation, and allowing us take part in the plan of care of your patient during his hospital stay. The impression and plan of care has been dictated as directed. Dr. Macias I performed a history and examination of this patient, discussed the same with the dictator. I agree with the dictator's note ,documented as a scribe. Any additional findings or plans will be noted.
[2021-03-10 13:20] LABS: Glucose,Whole Blood 59 mg/dL (75-99)
[2021-03-10] MEDS ORDERED: SODIUM CHLORIDE 0.9% 1,000 ML IV ONE (13:33)
[2021-03-10 13:36] LABS: Glucose,Whole Blood 56 mg/dL (75-99)
[2021-03-10] MEDS ORDERED: SODIUM CHLORIDE 0.9% 1,000 ML IV SCH (13:45)
[2021-03-10 14:05] LABS: Glucose,Whole Blood 54 mg/dL (75-99)
--- NOTE | 2021-03-10 14:40 | CT ---
EXAMINATION TYPE: CT angio lower extremity LT DATE OF EXAM: 03/10/2021 COMPARISON: 09/09/2020 HISTORY: no doppler signal, previous fem-tib artery bypass CT DLP: 2188.5 mGycm Automated exposure control for dose reduction was used. CONTRAST: Performed without and with IV Contrast, patient injected with 125 mL of Isovue 370. CTA was performed of the distal abdominal aorta through the ankles. 3-D reconstruction was obtained at a separate work station. FINDINGS: There is severe calcified plaque of the aorta with severe calcification of branch vessels most promin ent involving smaller vessels correlating with history of long-standing chronic medical renal disease . Presence of severe calcified plaque makes accurate evaluation of stenosis suboptimal due to bloomin g artifact. Left-sided femoral tibial bypass graft noted which demonstrates 50% stenosis at the level of the thig h. At The level of the distal femur there is occlusion noted image 117 with reconstitution noted dist ally. The popliteal artery is thrombosed. Calf arteries appear to opacify possibly from collateral fl ow. There is diffuse atheromatous change noted throughout. Right-sided femoral bypass graft is patent with a mild atheromatous change seen throughout. 50% steno sis at the level of the popliteal artery. Distal runoff arteries appear to opacify within normal limi ts. Atrophic renal changes. Renal cystic changes. Ascites. Diffuse vascular calcifications throughout. IMPRESSION: Left-sided femoral tibial bypass graft noted which demonstrates 50% stenosis at the level of the thig h. At The level of the distal femur there is occlusion noted image 117 with reconstitution noted dist ally. The popliteal artery is thrombosed. Calf arteries appear to opacify possibly from collateral fl ow. There is diffuse atheromatous change noted throughout.
[2021-03-10] MEDS: DEXTROSE 5%-0.9% NACL 1,000 ML IV SCH (14:42)
[2021-03-10 14:48] LABS: Glucose,Whole Blood 93 mg/dL (75-99)
--- NOTE | 2021-03-10 15:48 | P.PN ---
Subjective Progress Note Date: 03/10/21 The patient is a 66-year-old male with a PMH of type II DM, ESRD on hemodialysis, hyperlipidemia, hypertension, coronary artery disease, restless leg syndrome, obstructive sleep apnea on CPAP who was sent to the emergency room from wound care for a nonhealing left lower extremity ulcer. The patient had re cently undergone a left foot debridement and wound VAC placement and was discharged home on oral antibiotics. He was subsequently seen in the wound care clinic on 03/08 whereupon examination, his left foot wound was noted to be infected and he was thereby directed to the emergency room. The patient was seen and examined at the bedside on 03/10. He reported ongoing left foot pain, currently rated at a 6 out of 10. He denied any additional complaints. Denied fever, chills, chest pain, shortness of breath, nausea, vomiting. General: Non-toxic, in no acute distress, appears stated age, overweight HEENT: NC/AT, anicteric sclerae, moist conjunctiva, no lid-lag, PERRLA Cardiovascular: S1/S2 wnl, no murmurs, rubs, or gallops Lungs: Clear to auscultation, normal respiratory effort, no accessory muscle use Abdominal: Soft, non-tender, non-distended, no guarding, rebound, or rigidity Skin: Left mid-foot amputation w/ wound w/ surrounding erythema Extremities: No edema or contractures Psychiatric: Alert and oriented to person, place and time, appropriate affect Neuro: CN II-XII grossly intact, Strength 5/5 in all 4 extremities, Speech intact, Sensation to light touch grossly intact throughout Assessment/plan Left foot nonhealing wound -Vascular surgery recommendations appreciated -Follow up blood cultures -Continue with broad-spectrum antibiotics -Infectious disease consulted -Planned for left below the knee amputation. Neurologic consulted for clearance Lactic acidosis -Likely due to ongoing infection -IV fluids -Monitor for resolution Chronic conditions: ESRD, type II DM, hypertension, hyperlipidemia, coronary artery disease, gout -Continue with home meds DVT prophylaxis -heparin subq Discussed with: Patient, daughter Anticipated discharge date: 2-[address]: Home Objective - Vital Signs Vital signs: Vital Signs Temp 98 F 03/10/21 14:00 Pulse 76 03/10/21 14:00 Resp 16 03/10/21 14:00 BP 102/56 03/10/21 14:00 Pulse Ox 96 03/10/21 14:00 Intake & Output 03/09/21 03/10/21 03/10/21 18:59 06:59 18:59 Intake Total 536 370 236 Output Total 3000 150 150 Balance -2464 220 86 Weight 90.718 kg 90.718 kg Intake: Intake, IV Titration 150 Amount DAPTOmycin 550 mg In 100 Sodium Chloride 0.9% 50 ml @ 100 mls/hr IVPB Q48H [facility] Rx#:[id number] metroNIDAZOLE-NS PMX 500 50 mg In Saline 1 100ml.bag @ 100 mls/hr IVPB Q8HR [facility]ERNANDO Rx#:[id number] Oral 236 220 236 Hemodialysis 300 Output: Urine 150 150 Hemodialysis 3000 Other: Voiding Method Urinal Urinal # Voids 1 1 1 - Labs CBC & Chem 7: 03/10/21 09:57 03/10/21 09:57 Labs: Abnormal Lab Results - Last 24 Hours (Table) 03/09/21 03/09/21 03/10/21 Range/Units 18:26 20:28 09:57 Hgb 12.7 L (13.0-17.5) gm/dL MCHC 30.4 L (31.0-37.0) g/dL RDW 19.3 H (11.5-15.5) % Sodium (137-145) mmol/L Chloride (98-107) mmol/L Carbon Dioxide (22-30) mmol/L BUN (9-20) mg/dL Creatinine (0.66-1.25) mg/dL Glucose (74-99) mg/dL POC Glucose (mg/dL) 104 H 108 H (75-99) mg/dL Plasma Lactic Acid Hilton (0.7-2.0) mmol/L 03/10/21 03/10/21 03/10/21 Range/Units 09:57 09:57 12:02 Hgb (13.0-17.5) gm/dL MCHC (31.0-37.0) g/dL RDW (11.5-15.5) % Sodium 130 L (137-145) mmol/L Chloride 96 L (98-107) mmol/L Carbon Dioxide 20 L (22-30) mmol/L BUN 29 H (9-20) mg/dL Creatinine 4.83 H (0.66-1.25) mg/dL Glucose 61 L (74-99) mg/dL POC Glucose (mg/dL) 44 L (75-99) mg/dL Plasma Lactic Acid Hilton 2.3 H* (0.7-2.0) mmol/L 03/10/21 03/10/21 03/10/21 Range/Units 12:24 12:39 12:43 Hgb (13.0-17.5) gm/dL MCHC (31.0-37.0) g/dL RDW (11.5-15.5) % Sodium (137-145) mmol/L Chloride (98-107) mmol/L Carbon Dioxide (22-30) mmol/L BUN (9-20) mg/dL Creatinine (0.66-1.25) mg/dL Glucose (74-99) mg/dL POC Glucose (mg/dL) 51 L 54 L (75-99) mg/dL Plasma Lactic Acid Hilton 3.3 H* (0.7-2.0) mmol/L 03/10/21 03/10/21 03/10/21 Range/Units 13:01 13:18 13:35 Hgb (13.0-17.5) gm/dL MCHC (31.0-37.0) g/dL RDW (11.5-15.5) % Sodium (137-145) mmol/L Chloride (98-107) mmol/L Carbon Dioxide (22-30) mmol/L BUN (9-20) mg/dL Creatinine (0.66-1.25) mg/dL Glucose (74-99) mg/dL POC Glucose (mg/dL) 54 L 59 L 56 L (75-99) mg/dL Plasma Lactic Acid Hilton (0.7-2.0) mmol/L 03/10/21 Range/Units 14:04 Hgb (13.0-17.5) gm/dL MCHC (31.0-37.0) g/dL RDW (11.5-15.5) % Sodium (137-145) mmol/L Chloride (98-107) mmol/L Carbon Dioxide (22-30) mmol/L BUN (9-20) mg/dL Creatinine (0.66-1.25) mg/dL Glucose (74-99) mg/dL POC Glucose (mg/dL) 54 L (75-99) mg/dL Plasma Lactic Acid Hilton (0.7-2.0) mmol/L Microbiology - Last 24 Hours (Table) 03/08/21 16:20 Blood Culture - Preliminary Blood No Growth after 24 hours
[2021-03-10 16:32] LABS: Glucose,Whole Blood 159 mg/dL (75-99)
[2021-03-10 20:10] LABS: Glucose,Whole Blood 151 mg/dL (75-99)
[2021-03-10] MEDS: ATORVASTATIN 80 MG TAB PO SCH (20:23)
[2021-03-10] MEDS: CEFEPIME 1 GM in SODIUM CHLORIDE 0.9% 50 ML IVPB SCH (21:24)
--- NOTE | 2021-03-10 23:12 | PN ---
PROGRESS NOTE DATE OF SERVICE: 03/10/2021 REASON FOR FOLLOWUP: Left diabetic foot infection. INTERVAL HISTORY: The patient is afebrile. He is breathing comfortably. Denies any worsening pain to the left foot. The patient denies having any chest pain or shortness of breath or abdominal pain or diarrhea. PHYSICAL EXAMINATION: Blood pressure 102/56 with a pulse of 73, temperature 98. He is 96% on room air. General description is an elderly male lying in bed in no distress. RESPIRATORY SYSTEM: Unlabored breathing. Clear to auscultation anteriorly. HEART: S1, S2. Regular rate and rhythm. ABDOMEN: Soft. No tenderness. Left foot wound is deep. Did have some surrounding necrotic changes, swelling. No significant drainage. DIAGNOSTIC IMPRESSION AND PLAN: Patient with left diabetic foot infection with a recent component of and osteomyelitis. Patient is currently covered with daptomycin and Flagyl; to continue. He did have a CT angiogram of the leg with evidence of thrombosis. Vascular Surgery is following the patient closely. Continue supportive care. MMODL / IJN: [id number] /
[2021-03-11] MEDS: metroNIDAZOLE-NS PMX 500 MG in SALINE 1 100ML.BAG IVPB SCH ×3 (01:18→16:44)
[2021-03-11] MEDS: DEXTROSE 5%-0.9% NACL 1,000 ML IV SCH ×4 (01:23→21:15)
[2021-03-11 07:19] LABS: Anisocytosis Slight; HCT 40.1 % (39.0-53.0); HGB 11.8 gm/dL (13.0-17.5); Hypochromasia Marked; MCH 28.9 pg (25.0-35.0); MCHC 29.5 g/dL (31.0-37.0); Macrocytosis Slight; Mean Platelet Volume 10.6; Platelet Count 136 k/uL (150-450); RBC 4.09 m/uL (4.30-5.90); RDW 19.1 % (11.5-15.5); WBC 7.6 k/uL (3.8-10.6)
[2021-03-11 07:25] LABS: Glucose,Whole Blood 125 mg/dL (75-99)
[2021-03-11 07:43] LABS: African American GFR (CKD) 11 (>60 ml/min/1.73 sqM); Anion Gap 14 mmol/L; Blood Urea Nitrogen 36 mg/dL (9-20); Calcium 9.7 mg/dL (8.4-10.2); Carbon Dioxide 19 mmol/L (22-30); Chloride 95 mmol/L (98-107); Glucose 114 mg/dL (74-99); Non-African American GFR(CKD) 10 (>60 ml/min/1.73 sqM); Potassium 4.8 mmol/L (3.5-5.1); Sodium 128 mmol/L (137-145)
[2021-03-11] MEDS: FLUoxetine HCL 20 MG CAP PO SCH (08:35)
[2021-03-11] MEDS: allopurinoL 100 MG TAB PO SCH (08:35)
[2021-03-11] MEDS: INSULIN ASPART (NovoLOG) 100 UNIT/ML VIAL SQ SCH ×3 (08:35→20:25)
[2021-03-11] MEDS: FUROSEMIDE 20 MG TAB PO SCH (08:36)
[2021-03-11] MEDS: PREGABALIN 25 MG CAP PO SCH ×2 (08:36→21:15)
[2021-03-11] MEDS: HEPARIN SODIUM,PORCINE/PF 5,000 UNIT/0.5 ML SYRINGE SQ SCH ×2 (08:36→20:06)
[2021-03-11] MEDS: SODIUM BICARBONATE TAB 650 MG TAB PO SCH ×2 (08:36→18:01)
[2021-03-11] MEDS: SEVELAMER 800 MG TAB PO SCH ×3 (08:36→18:20)
[2021-03-11] MEDS: METOPROLOL SUCCINATE (ER) 25 MG TAB.ER.24H PO SCH (08:37)
[2021-03-11] MEDS: MIDODRINE 5 MG TAB PO PRN (09:19)
--- NOTE | 2021-03-11 09:51 | P.CRDCN ---
History of Present Illness Consult date: 03/11/21 History of present illness: HISTORY OF PRESENT ILLNESS: This is a 66-year-old male with a past medical history significant for chronic kidney disease on hemodialysis, hypertension, hyperlipidemia, diabetes, nicotine dependence, and coronary artery disease with previous CABG 5 in 2011. Patient follows in the office with Dr. Renteria. We have been asked to see the patient in consultation for cardiac clearance. Patient examined at the bedside. Patient is scheduled for left BKA today with Dr. Macias. Patient denies chest pain or pressure. Denies shortness of breath. Patient is able to lay flat in bed without any difficulty. He denies dizziness or lightheadedness. He is scheduled to receive hemodialysis this morning as well. Telemetry reveals sinus mechanism with left bundle branch block CT angios left lower extremity: Left-sided femoral tibial bypass graft noted which demonstrates 50% stenosis at the level of the thigh. At the level of the distal femur there is occlusion noted. The popliteal artery is thrombosed. Arteries appear to opacify possibly from collateral flow. There is diffuse atheromatous change noted throughout Laboratory data: WBC 7.6. Hemoglobin 11.8. Platelet count 136. Sodium 138. Potassium 4.8. BUN 36. Creatinine 5.54. Current home cardiac medications include Midodrine 10 mg 3 times a day, metoprolol succinate 25 mg daily, Lasix 20 mg daily, Plavix 75 mg daily, aspirin 81 mg, and Lipitor 80 mg daily Most recent echocardiogram obtained in April 2020 revealed ejection fraction 30-35%, moderate aortic stenosis, [id number] mitral regurgitation, [id number] tricuspid regurgitation Patient underwent Lexiscan stress test in April 2020 revealed an abnormal nuclear scan showing evidence of ischemic cardiac myopathy with moderate LV dysfunction with evidence of prior inferior lateral myocardial infarction REVIEW OF SYSTEMS: At the time of my exam: CONSTITUTIONAL: Denies fever or chills. HEENT: Denies blurred vision, vision changes, or eye pain. Denies hemoptysis CARDIOVASCULAR: Denies chest pain. Denies orthopnea. Denies PND. Denies palpitations RESPIRATORY: Denies shortness of breath. GASTROINTESTINAL: Denies abdominal pain. Denies nausea or vomiting. HEMATOLOGIC: Denies bleeding disorders. GENITOURINARY: Denies any blood in urine. SKIN: Denies pruitis. Denies rash. PHYSICAL EXAM: VITAL SIGNS: Reviewed. GENERAL: Well-developed in no acute distress. HEENT: Head is normocephalic. Pupils are equal, round. Sclerae anicteric. Mucous membranes of the mouth are moist. Neck supple. No JVD or thyromegaly LUNGS: Respirations even and unlabored. Lungs essentially clear to auscultation bilaterally. HEART: Regular rate and rhythm. S1 and S2 heard. Systolic murmur noted. ABDOMEN: Soft. Nondistended. Nontender. EXTREMITIES: Dressing noted to left lower extremity. No clubbing or cyanosis. No lower extremity edema NEUROLOGIC: Awake and alert. Oriented x 3. ASSESSMENT: Nonhealing left foot wound Peripheral arterial disease status post left fem-tib artery bypass September 2020 Chronic kidney disease on hemodialysis Coronary artery disease with previous CABG 5 Known ischemic cardiomyopathy with ejection fraction 30-35% Hypertension Hyperlipidemia Diabetes Former nicotine dependence Moderate aortic stenosis PLAN: Obtain 2D echo to assess cardiac structure and function Obtain EKG Continue home cardiac medications Patient is at moderate-high risk to undergo surgery from a cardiac standpoint however there are no absolute contraindications Further recommendations pending patient's course Nurse practitioner note has been reviewed by physician. Signing provider agrees with the documented findings, assessment, and plan of care. 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 History of Any Multi-Drug Resistant Organisms: None Reported Past Surgical History: Coronary Bypass/CABG, Heart Catheterization, Orthopedic Surgery Additional Past Surgical History / Comment(s): Recent transplant biopsy, vein mapping last week at [facility] in preparation for new fistula, meningioma benign brain tumor removed at [facility], (rt) kidney transplant 2013 at [facility], 5 vessel cabg, colonoscopy-clear, lt knee arthroscopy, rt arm fistulas with R upper arm fistula removed, forehead skin cancer removal. lef ttoe amputation Past Anesthesia/Blood Transfusion Reactions: Motion Sickness Past Psychological History: No Psychological Hx Reported Smoking Status: Former smoker - Past Family History Father Family Medical History: Hypertension, Myocardial Infarction ([place]), Renal Disease Additional Family Medical History / Comment(s): Pt states his father had received blood, had a reaction-a [place] and at the age of 40yrs. Mother Family Medical History: Dementia Additional Family Medical History / Comment(s): Mother is 82 yrs old. Sister(s) Family Medical History: Hyperlipidemia, Renal Disease Additional Family Medical History / Comment(s): Sister is on hemodialysis. Medications and Allergies Home Medications Medication Instructions Recorded Confirmed Type allopurinoL [Zyloprim] 100 mg PO DAILY@0800 05/16/16 03/08/21 History FLUoxetine HCL [PROzac] 20 mg PO DAILY@0800 09/15/20 03/08/21 History Metoprolol Succinate [Toprol XL] 25 mg PO DAILY 09/15/20 03/08/21 History Aspirin 81 mg PO SUMOWEFR 10/14/20 03/08/21 History Clopidogrel [Plavix] 75 mg PO HS 10/14/20 03/08/21 History Sevelamer [Renvela] 1,600 mg PO AC-TID@08,12,17 10/14/20 03/08/21 History Sodium Bicarbonate Tab 650 mg PO BID@0800,1700 10/14/20 03/08/21 History glipiZIDE [Glucotrol XL] 2.5 mg PO DAILY 10/14/20 03/08/21 History Atorvastatin [Lipitor] 80 mg PO HS tab 10/19/20 03/08/21 Rx HYDROcodone/APAP 5-325MG [[place] 1 tab PO Q6HR PRN #12 tab 10/19/20 03/08/21 Rx 5-325] Midodrine [ProAmatine] 10 mg PO AC-TID PRN tab 10/19/20 03/08/21 Rx Pregabalin [Lyrica] 25 mg PO DAILY@0800 #3 cap 10/19/20 03/08/21 Rx Furosemide [Lasix] 20 mg PO DAILY 02/19/21 03/08/21 History Nepro-Mio 1 tab PO HS 02/19/21 03/08/21 History Potassium Chloride 10 meq PO DAILY 02/19/21 03/08/21 History rOPINIRole HCL [Requip] 1 mg PO HS 02/19/21 03/08/21 History Ciprofloxacin HCl 500 mg PO DAILY 42 Days #42 tab 02/27/21 03/08/21 Rx DAPTOmycin [Cubicin] 550 mg IVPB Q48H each 02/27/21 03/08/21 Rx metroNIDAZOLE [Flagyl] 500 mg PO TID 42 Days #126 tab 02/27/21 03/08/21 Rx Allergies Allergy/AdvReac Type Severity Reaction Status Date / Time No Known Allergies Allergy Verified 03/08/21 17:13 Physical Exam Vitals: Vital Signs Temp Pulse Resp BP Pulse Ox 03/11/21 07:54 98.4 F 65 18 103/58 94 L 03/11/21 01:07 98.1 F 71 14 97/55 96 03/10/21 19:46 15 03/10/21 19:03 98.4 F 67 15 94/55 93 L 03/10/21 14:00 98 F 76 16 102/56 96 Intake and Output 03/10/21 03/11/21 03/11/21 22:59 06:59 14:59 Intake Total 236 Balance 236 Intake: Oral 236 Other: Voiding Method Urinal # Bowel Movements 1 Results 03/11/21 06:37 03/11/21 06:37 CBC 03/10/21 03/11/21 Range/Units 09:57 06:37 WBC 7.5 7.6 (3.8-10.6) k/uL RBC 4.36 4.09 L (4.30-5.90) m/uL Hgb 12.7 L 11.8 L (13.0-17.5) gm/dL Hct 41.7 40.1 (39.0-53.0) % Plt Count 155 136 L (150-450) k/uL Comprehensive Metabolic Panel 03/10/21 03/11/21 Range/Units 09:57 06:37 Sodium 130 L 128 L (137-145) mmol/L Potassium 4.7 4.8 (3.5-5.1) mmol/L Chloride 96 L 95 L (98-107) mmol/L Carbon Dioxide 20 L 19 L (22-30) mmol/L BUN 29 H 36 H (9-20) mg/dL Creatinine 4.83 H 5.54 H (0.66-1.25) mg/dL Glucose 61 L 114 H (74-99) mg/dL Calcium 9.6 9.7 (8.4-10.2) mg/dL Current Medications Generic Name Dose Route Start Last Admin Trade Name Freq PRN Reason Stop Dose Admin Acetaminophen 650 mg 03/08/21 15:30 03/09/21 08:29 Acetaminophen Tab 325 Mg Tab PO 650 mg Q6HR PRN Administration Mild Pain or Fever > 100.5 Hydrocodone Bitart/Acetaminophen 1 each 03/08/21 18:29 03/10/21 08:26 Hydrocodone/Apap 5-325mg 1 Each Tab PO 1 each Q6HR PRN Administration MODERATE Pain Allopurinol 100 mg 03/09/21 08:00 03/11/21 08:35 Allopurinol 100 Mg Tab PO Not Given DAILY@0800 [facility] Aspirin 81 mg 03/08/21 18:45 03/10/21 08:26 Aspirin 81 Mg PO 81 mg SuMoWeFr@0900 [facility] Administration Atorvastatin Calcium 80 mg 03/08/21 21:00 03/10/21 20:23 Atorvastatin 80 Mg Tab PO 80 mg HS FERNANDO Administration Fluoxetine HCl 20 mg 03/09/21 08:00 03/11/21 08:35 Fluoxetine Hcl 20 Mg Cap PO Not Given DAILY@0800 FERNANDO Furosemide 20 mg 03/09/21 09:00 03/11/21 08:36 Furosemide 20 Mg Tab PO Not Given DAILY [facility] Heparin Sodium (Porcine) 5,000 unit 03/08/21 21:00 03/11/21 08:36 Heparin Sodium,Porcine/Pf 5,000 Unit/0.5 Ml Syringe SQ Not Given Q12HR FERNANDO Cefepime HCl 1 gm/ Sodium 50 mls @ 12.5 mls/hr 03/08/21 21:00 03/10/21 21:24 Chloride IVPB 12.5 mls/hr HS FERNANDO Administration Metronidazole 500 mg/ IV 100 mls @ 100 mls/hr 03/08/21 19:15 03/11/21 08:37 Solution IVPB 100 mls/hr Q8HR FERNANDO Administration Daptomycin 550 mg/ Sodium 50 mls @ 100 mls/hr 03/08/21 21:00 03/10/21 20:24 Chloride IVPB 100 mls/hr Q48H FERNANDO Administration Dextrose/Sodium Chloride 1,000 mls @ 125 mls/hr 03/10/21 14:15 03/11/21 06:24 Dextrose 5%-Ns Iv Soln IV 125 mls/hr .Q8H FERNANDO Administration Insulin Aspart 0 unit 03/08/21 21:00 03/11/21 08:35 Insulin Aspart (Novolog) 100 Unit/Ml Vial SQ Not Given ACHS FERNANDO Protocol Metoprolol Succinate 25 mg 03/09/21 09:00 03/11/21 08:37 Metoprolol Succinate (Er) 25 Mg Tab.Er.24h PO 25 mg DAILY FERNANDO Administration Midodrine 10 mg 03/08/21 18:29 03/11/21 09:19 Midodrine 5 Mg Tab PO 10 mg AC-TID PRN Administration Hypotension Miscellaneous Information 1 each 03/09/21 11:12 Rx Info: Iv Contrast Was Given 1 Each [facility] MISCELLANE 03/11/21 11:15 DAILY PRN Per Protocol Miscellaneous Information 1 each 03/09/21 13:59 Rx Info: Iv Contrast Was Given 1 Each Misc MISCELLANE 03/11/21 14:00 DAILY PRN Per Protocol Morphine Sulfate 4 mg 03/08/21 15:30 03/09/21 20:30 Morphine Sulfate 4 Mg/Ml Syringe IV 4 mg Q4HR PRN Administration Severe Pain Naloxone HCl 0.2 mg 03/08/21 15:30 Naloxone 0.4 Mg/Ml 1 Ml Vial IV Q2M PRN Opioid Reversal Ondansetron HCl 4 mg 03/08/21 15:30 Ondansetron 4 Mg/2 Ml Vial IVP Q8HR PRN Nausea And Vomiting Pregabalin 25 mg 03/09/21 08:00 03/11/21 08:36 Pregabalin 25 Mg Cap PO Not Given DAILY@0800 FERNANDO Ropinirole HCl 1 mg 03/08/21 21:00 03/10/21 20:23 Ropinirole Hcl 1 Mg Tab PO 1 mg HS FERNANDO Administration Sevelamer Carbonate 1,600 mg 03/09/21 08:00 03/11/21 08:36 Sevelamer 800 Mg Tab PO Not Given AC-TID@,12,17 [facility] Sodium Bicarbonate 650 mg 03/09/21 08:00 03/11/21 08:36 Sodium Bicarbonate Tab 650 Mg Tab PO Not Given BID@0800,1700 FERNANDO Intake and Output 03/10/21 03/11/21 03/11/21 22:59 06:59 14:59 Intake Total 236 Balance 236 Intake: Oral 236 Other: Voiding Method Urinal # Bowel Movements 1 03/11/21 06:37 03/11/21 06:37
--- NOTE | 2021-03-11 10:14 | ECHOF ---
Referral Reason:LV function MEASUREMENTS -------- HEIGHT: 180.3 cm WEIGHT: 90.7 kg BP: RVIDd: 3.5 cm (< 3.3) IVSd: 1.1 cm (0.6 - 1.1) LVIDd: 4.7 cm (3.9 - 5.3) LVPWd: 1.3 cm (0.6 - 1.1) IVSs: 1.2 cm LVIDs: 4.6 cm LVPWs: 1.1 cm Ao Diam: 3.1 cm (2.0 - 3.7) AV Cusp: 0.9 cm (1.5 - 2.6) LA Diam: 3.8 cm (2.7 - 3.8) MV EXCURSION: 13.189 mm (> 18.000) MV EF SLOPE: 46 mm/s (70 - 150) EPSS: 1.0 cm MV E Nba: 0.93 m/s MV DecT: 227 ms MV A Nba: 0.80 m/s MV E/A Ratio: 1.17 AV maxP.65 mmHg AV meanP.19 mmHg RAP: 5.00 mmHg RVSP: 31.12 mmHg FINDINGS -------- This was a technically difficult study with suboptimal views. The left ventricular size is normal. There is mild concentric left ventricular hypertrophy. Overa ll left ventricular systolic function is moderate-severely impaired with, an EF between 30 - 35 %. There is paradoxical/dysynergic septal motion consistent with right ventricular volume overload and/o r elevated right ventricular end-diastolic pressure. The right ventricle is mildly enlarged. The left atrial size is normal. The right atrial size is normal. Lumason used Aortic valve is trileaflet and is moderately thickened. There is mild aortic stenosis present. Pe ak/mean gradient across the Aortic Valve is 18.65mmHg / 10.19mmHg. The mitral valve is normal. The mitral valve leaflets are mildly thickened. Mild mitral annular c alcification present. Mild mitral regurgitation is present. The tricuspid valve appears structurally normal. Mild tricuspid regurgitation present. Right vent ricular systolic pressure is normal at < 35 mmHg. There is no pulmonic regurgitation present. The aortic root size is normal. IVC Not well visulized. There is no pericardial effusion. CONCLUSIONS -------- 1. The left ventricular size is normal. 2. There is mild concentric left ventricular hypertrophy. 3. Overall left ventricular systolic function is moderate-severely impaired with, an EF between 30 - 35 %. 4. There is paradoxical/dysynergic septal motion consistent with right ventricular volume overload an d/or elevated right ventricular end-diastolic pressure. 5. The right ventricle is mildly enlarged. 6. Lumason used 7. Aortic valve is trileaflet and is moderately thickened. 8. There is mild aortic stenosis present. 9. Peak/mean gradient across the Aortic Valve is 18.65mmHg / 10.19mmHg. 10. The mitral valve leaflets are mildly thickened. 11. Mild mitral annular calcification present. 12. Mild mitral regurgitation is present. 13. Mild tricuspid regurgitation present. 14. There is no pericardial effusion. EARLY CHILDHOOD TEACHER: Vanessa Hanna RDCS
--- NOTE | 2021-03-11 10:33 | P.PN ---
Subjective Patient is seen in follow-up for end-stage renal disease. No active complaints. Scheduled for left BKA today. Vital signs are stable. General: The patient appeared well nourished and normally developed. HEENT: Head exam is unremarkable. LUNGS: Breath sounds decreased. HEART: Rate and Rhythm are regular. ABDOMEN: Soft, no distention. EXTREMITITES: No clubbing, cyanosis, or edema. No drainage noted. Toe amputation noted. Objective - Vital Signs Vital signs: Vital Signs Temp 98.4 F 03/11/21 07:54 Pulse 65 03/11/21 07:54 Resp 18 03/11/21 07:54 BP 103/58 03/11/21 07:54 Pulse Ox 94 L 03/11/21 07:54 Intake & Output 03/10/21 03/11/21 03/11/21 18:59 06:59 18:59 Intake Total 472 Output Total 150 Balance 322 Weight 90.718 kg Intake: Oral 472 Output: Urine 150 Other: Voiding Method Urinal Urinal # Voids 1 # Bowel Movements 1 - Labs CBC & Chem 7: 03/11/21 06:37 03/11/21 06:37 Labs: Abnormal Lab Results - Last 24 Hours (Table) 03/10/21 03/10/21 03/10/21 Range/Units 09:57 09:57 09:57 RBC (4.30-5.90) m/uL Hgb 12.7 L (13.0-17.5) gm/dL MCHC 30.4 L (31.0-37.0) g/dL RDW 19.3 H (11.5-15.5) % Plt Count (150-450) k/uL Sodium 130 L (137-145) mmol/L Chloride 96 L (98-107) mmol/L Carbon Dioxide 20 L (22-30) mmol/L BUN 29 H (9-20) mg/dL Creatinine 4.83 H (0.66-1.25) mg/dL Glucose 61 L (74-99) mg/dL POC Glucose (mg/dL) (75-99) mg/dL Plasma Lactic Acid [place] 2.3 H* (0.7-2.0) mmol/L 03/10/21 03/10/21 03/10/21 Range/Units 12:02 12:24 12:39 RBC (4.30-5.90) m/uL Hgb (13.0-17.5) gm/dL MCHC (31.0-37.0) g/dL RDW (11.5-15.5) % Plt Count (150-450) k/uL Sodium (137-145) mmol/L Chloride (98-107) mmol/L Carbon Dioxide (22-30) mmol/L BUN (9-20) mg/dL Creatinine (0.66-1.25) mg/dL Glucose (74-99) mg/dL POC Glucose (mg/dL) 44 L 51 L (75-99) mg/dL Plasma Lactic Acid [place] 3.3 H* (0.7-2.0) mmol/L 03/10/21 03/10/21 03/10/21 Range/Units 12:43 13:01 13:18 RBC (4.30-5.90) m/uL Hgb (13.0-17.5) gm/dL MCHC (31.0-37.0) g/dL RDW (11.5-15.5) % Plt Count (150-450) k/uL Sodium (137-145) mmol/L Chloride (98-107) mmol/L Carbon Dioxide (22-30) mmol/L BUN (9-20) mg/dL Creatinine (0.66-1.25) mg/dL Glucose (74-99) mg/dL POC Glucose (mg/dL) 54 L 54 L 59 L (75-99) mg/dL Plasma Lactic Acid [place] (0.7-2.0) mmol/L 03/10/21 03/10/21 03/10/21 Range/Units 13:35 14:04 16:31 RBC (4.30-5.90) m/uL Hgb (13.0-17.5) gm/dL MCHC (31.0-37.0) g/dL RDW (11.5-15.5) % Plt Count (150-450) k/uL Sodium (137-145) mmol/L Chloride (98-107) mmol/L Carbon Dioxide (22-30) mmol/L BUN (9-20) mg/dL Creatinine (0.66-1.25) mg/dL Glucose (74-99) mg/dL POC Glucose (mg/dL) 56 L 54 L 159 H (75-99) mg/dL Plasma Lactic Acid [place] (0.7-2.0) mmol/L 03/10/21 03/10/21 03/10/21 Range/Units 17:08 20:09 20:19 RBC (4.30-5.90) m/uL Hgb (13.0-17.5) gm/dL MCHC (31.0-37.0) g/dL RDW (11.5-15.5) % Plt Count (150-450) k/uL Sodium (137-145) mmol/L Chloride (98-107) mmol/L Carbon Dioxide (22-30) mmol/L BUN (9-20) mg/dL Creatinine (0.66-1.25) mg/dL Glucose (74-99) mg/dL POC Glucose (mg/dL) 151 H (75-99) mg/dL Plasma Lactic Acid [place] 3.2 H* 2.1 H* (0.7-2.0) mmol/L 03/11/21 03/11/21 03/11/21 Range/Units 06:37 06:37 07:23 RBC 4.09 L (4.30-5.90) m/uL Hgb 11.8 L (13.0-17.5) gm/dL MCHC 29.5 L (31.0-37.0) g/dL RDW 19.1 H (11.5-15.5) % Plt Count 136 L (150-450) k/uL Sodium 128 L (137-145) mmol/L Chloride 95 L (98-107) mmol/L Carbon Dioxide 19 L (22-30) mmol/L BUN 36 H (9-20) mg/dL Creatinine 5.54 H (0.66-1.25) mg/dL Glucose 114 H (74-99) mg/dL POC Glucose (mg/dL) 125 H (75-99) mg/dL Plasma Lactic Acid [place] (0.7-2.0) mmol/L Microbiology - Last 24 Hours (Table) 03/08/21 16:20 Blood Culture - Preliminary Blood No Growth after 48 hours Assessment and Plan Plan: Assessment: 1. End-stage renal disease maintained on hemodialysis on Monday schedule. 2. Left foot wound status post debridement and wound VAC placement. On IV antibiotics. Scheduled for left BKA today. 3. Chronic hypotension maintained on midodrine. 4. Chronic kidney disease mineral bone disease maintained on Renvela. Also on bicarb. 5. Diabetes mellitus. 6. Hyponatremia secondary to chronic kidney disease. Plan: Hemodialysis today.
[2021-03-11 11:42] LABS: Glucose,Whole Blood 85 mg/dL (75-99)
[2021-03-11] MEDS ORDERED: IV FLUID CONTINUATION 250 ML IV ONE (13:26)
[2021-03-11] MEDS ORDERED: ETOMIDATE 2 MG/ML 10 ML VIAL ONE (13:57)
[2021-03-11] MEDS ORDERED: SUCCINYLCHOLINE CHLORIDE 100 MG/5 ML SYR IV ONE (13:57)
[2021-03-11] MEDS ORDERED: HYDROmorphone (PF) 1 MG/ML ONE (13:57)
[2021-03-11] MEDS ORDERED: LIDOCAINE 1% INJ 10MG/ML (20 ML MDV) ONE (13:57)
[2021-03-11] MEDS ORDERED: ROCURONIUM 10 MG/ML (5 ML VIAL) IV ONE (13:57)
[2021-03-11] MEDS ORDERED: GLYCOPYRROLATE 0.2 MG/ML 2 ML VIAL ONE (13:57)
[2021-03-11] MEDS ORDERED: fentaNYL (PF) 50 MCG/ML 2 ML AMP ONE (13:57)
[2021-03-11] MEDS ORDERED: NEOSTIGMINE 1 MG/ML 10 ML VIAL ONE (13:57)
[2021-03-11 14:07] LABS: African American GFR (CKD) 18 (>60 ml/min/1.73 sqM); Anion Gap 17 mmol/L; Blood Urea Nitrogen 21 mg/dL (9-20); Calcium 9.6 mg/dL (8.4-10.2); Carbon Dioxide 20 mmol/L (22-30); Chloride 95 mmol/L (98-107); Glucose 103 mg/dL (74-99); Non-African American GFR(CKD) 15 (>60 ml/min/1.73 sqM); Potassium 3.6 mmol/L (3.5-5.1); Sodium 132 mmol/L (137-145)
--- NOTE | 2021-03-11 15:29 | P.OP ---
Date of Procedure: 03/11/21 Description of Procedure: PREOPERATIVE DIAGNOSIS: [Left lower extremity nonhealing wound, severe peripheral arterial disease, occluded femoral tibial graft]. POSTOPERATIVE DIAGNOSIS: [Same]. OPERATION: [Left] below knee amputation. SURGEON: Reyna Macias DO PLASTIC SURGEON: [Romeo Farrell]. ANESTHESIA: [General endotracheal] ESTIMATED BLOOD LOSS: [100 mL] SPECIMENS REMOVED: [Left lower extremity] COMPLICATIONS: [None immediately apparent] CONDITION: Stable to recovery FINDINGS AND INDICATIONS: [The patient is a 66-year-old male well known to our service for peripheral arterial disease, he previously had a femoral to tibial bypass graft to heel wound. Subsequently failed and he began having worsening of his transmetatarsal and toe wounds with further nonhealing. He has no further vascular outflow availability therefore it was recommended he undergo below-knee amputation given he does not have any calf pain or tenderness at this time. Risks and benefits were discussed. He seemingly understood and was willing to proceed as such] PROCEDURE IN DETAIL: The patient was brought to the operating room, . He was placed under general anesthesia, due to his Plavix 4 days prior anesthesia did not feel comfortable performing spinal anesthetic. the operative leg was prepped and draped in the usual sterile manner 10 cm below the tibial plateau was marked. The calf circumference was measured. Two thirds was utilized for the anterior incision, one third was utilized to create the flap. The incision was marked. The incision was deepened through the subcutaneous tissue and fascia to the level of the bone. The fascia was transected around the level of the incision. Anterior compartment muscles were divided and visualized to the tibial vessels which were suture ligated with 2-0 silk. Then the lateral compartment muscles were divided. Dissection was carried down to the level of the bone. The periosteal elevator was used and the tibia was freed from its periosteal tissues. The tibia was divided with an oscillating saw. The same was done of the fibula, approximately 1-1/2-2 cm more proximal to the tibia itself. The posterior flap was created with an amputation knife. Bleeding was controlled with suture ligation of the vessels. Electrocautery was also used for hemostasis. The specimen was removed. The wound was copiously irrigated. The tibia and fibula were smoothed with a rasp. 2-0 and 3-0 Vicryl was utilized to approximate the fascia. The skin was reapproximated with [place]. The incsion was cleansed and a dressing was placed. The patient was extubated and transferred to PACU in stable condition having tolerated the procedure well
[2021-03-11] MEDS: MORPHINE SULFATE 4 MG/ML SYRINGE IV PRN ×2 (16:30→20:45)
[2021-03-11 16:39] LABS: Glucose,Whole Blood 81 mg/dL (75-99)
--- NOTE | 2021-03-11 17:35 | P.PN ---
Subjective Progress Note Date: 03/11/21 Principal diagnosis: foot infection Patient is a 66-year-old male for history of end-stage renal disease on hemodialysis, diabetes mellitus type 2 on insulin, hypertension, coronary artery disease, and chronic left lower extremity wound who initially presented to the ER for worsening of his wound. He had undergone a left foot debridement with wound VAC placement requiring hospitalization from 02/19 through 02/27 and completed a dose of oral antibiotics. He was seen at the wound care clinic on 03/08 were felt that his wound was reinfected and he was told to proceed to the emergency department. Patient was seen and evaluated by wound care, Dr. Larios, and Dr. Macias. He ultimately underwent left-sided BKA on 03/11. Echocardiogram-ejection fraction 30-35%, elevated right end-diastolic pressure, moderate valvular disease Lower extremity [id number] femoral tibial bypass graft noted with 50% stenosis, with occlusion at the distal femoral level with free constitution distally, popliteal artery thrombosis, Arteries opacify from collateral flow Patient seen and examined at bedside. He reports not feeling well after surgery. His daughter reports that he was complaining of lightheadedness, nausea, and pain. He was also complaining of some phantom limb pain. She is on CPAP and is having some difficulty staying awake and focused. She reports planning on going to [facility] on discharge. 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: atraumatic, normocephalic, symmetric Eyes: EOMI, no lid lag, anicteric sclera Mouth: no lip lesion, mucus membranes moist Cardiovascular: S1S2 reg, no murmur, positive posterior tibial pulse bilateral, Lungs: Decreased breath sounds bilateral, no rhonchi, no rales , no accessory muscle use Abdominal: soft, nontender to palpation, no guarding, no appreciable organomegaly Ext: no gross muscle atrophy, no edema right lower extremity, no contractures, left lower extremity with knee brace in place Neuro: CN II-XI grossly intact, no focal neuro deficits Psych: Lethargic, oriented, appropriate affect Nonhealing left foot ulcer with infection Peripheral arterial disease -Status post BKA on the left on 03/11 -S1 surgery recommendations -ID recommendations -Continue with cefepime, daptomycin -Increase Lyrica Insulin-dependent diabetes mellitus with recent hypoglycemia -Blood sugars well controlled -Decrease D5 half-normal -Follow blood sugars closely as patient did have hypoglycemia during this admission End-stage renal disease on hemodialysis Monday, , and Monday -Nephrology recs -Sodium bicarb and Renvela -On Midrin for chronic hypotension Hyponatremia secondary to end-stage renal disease -Consider for fluid management -Follow BMP -Decrease D5 half-normal -Monitor closely with Lasix and Prozac Systolic congestive heart failure with ejection fraction 30-35%, ischemic, chronic and currently compensated Coronary artery disease status post CABG 5 Hypertension Dyslipidemia Aortic stenosis -Cardio recs -Continue with aspirin, Lipitor -Lasix -Metoprolol Lactic acidosis, resolved DVT prophylaxis: per vascular Discussed with: patient, daughter, nursing Anticipated discharge: in 4-[address]: [facility] A total of 45 minutes was spent on the care of this complex patient more than 50% of the time was spent in counseling and care coordination. Objective - Vital Signs Vital signs: Vital Signs Temp 97.8 F 03/11/21 15:27 Pulse 85 03/11/21 16:02 Resp 18 03/11/21 16:02 BP 116/62 03/11/21 16:02 Pulse Ox 94 L 03/11/21 16:02 Intake & Output 03/10/21 03/11/21 03/11/21 18:59 06:59 18:59 Intake Total 472 2600 Output Total 150 2100 Balance 322 500 Weight 90.718 kg Intake: IV 200 Oral 472 100 Hemodialysis 2300 Output: Urine 150 Hemodialysis 2000 Estimated Blood Loss 100 Other: Voiding Method Urinal Urinal # Voids 1 # Bowel Movements 1 - Labs CBC & Chem 7: 03/11/21 06:37 03/11/21 12:30 Labs: Abnormal Lab Results - Last 24 Hours (Table) 03/10/21 03/10/21 03/10/21 Range/Units 17:08 20:09 20:19 RBC (4.30-5.90) m/uL Hgb (13.0-17.5) gm/dL MCHC (31.0-37.0) g/dL RDW (11.5-15.5) % Plt Count (150-450) k/uL Sodium (137-145) mmol/L Chloride (98-107) mmol/L Carbon Dioxide (22-30) mmol/L BUN (9-20) mg/dL Creatinine (0.66-1.25) mg/dL Glucose (74-99) mg/dL POC Glucose (mg/dL) 151 H (75-99) mg/dL Plasma Lactic Acid Hilton 3.2 H* 2.1 H* (0.7-2.0) mmol/L 03/11/21 03/11/21 03/11/21 Range/Units 06:37 06:37 07:23 RBC 4.09 L (4.30-5.90) m/uL Hgb 11.8 L (13.0-17.5) gm/dL MCHC 29.5 L (31.0-37.0) g/dL RDW 19.1 H (11.5-15.5) % Plt Count 136 L (150-450) k/uL Sodium 128 L (137-145) mmol/L Chloride 95 L (98-107) mmol/L Carbon Dioxide 19 L (22-30) mmol/L BUN 36 H (9-20) mg/dL Creatinine 5.54 H (0.66-1.25) mg/dL Glucose 114 H (74-99) mg/dL POC Glucose (mg/dL) 125 H (75-99) mg/dL Plasma Lactic Acid Hilton (0.7-2.0) mmol/L 03/11/21 Range/Units 12:30 RBC (4.30-5.90) m/uL Hgb (13.0-17.5) gm/dL MCHC (31.0-37.0) g/dL RDW (11.5-15.5) % Plt Count (150-450) k/uL Sodium 132 L (137-145) mmol/L Chloride 95 L (98-107) mmol/L Carbon Dioxide 20 L (22-30) mmol/L BUN 21 H (9-20) mg/dL Creatinine 3.87 H (0.66-1.25) mg/dL Glucose 103 H (74-99) mg/dL POC Glucose (mg/dL) (75-99) mg/dL Plasma Lactic Acid Hilton (0.7-2.0) mmol/L Microbiology - Last 24 Hours (Table) 03/08/21 16:20 Blood Culture - Preliminary Blood No Growth after 48 hours
[2021-03-11] MEDS: HYDROcodone/APAP 5-325MG 1 EACH TAB PO PRN (19:00)
--- NOTE | 2021-03-11 19:33 | PN ---
PROGRESS NOTE DATE OF SERVICE: 03/11/2021 REASON FOR FOLLOWUP: Left diabetic foot infection with underlying osteomyelitis and ischemic foot. INTERVAL HISTORY: The patient was seen on rounds this morning. The patient has been afebrile. The patient has been breathing comfortably. He is scheduled for left hsimg-arh-oacf amputation this afternoon. Patient denies having any chest pain or shortness of breath or cough. No abdominal pain or diarrhea. PHYSICAL EXAMINATION: Blood pressure 116/62 with a pulse of 85, temperature 97.8. He is 94% on room air. General description is an elderly male lying in bed in no distress. RESPIRATORY SYSTEM: Unlabored breathing. Clear to auscultation anteriorly. HEART: S1, S2. Regular rate and rhythm. ABDOMEN: Soft. No tenderness. Left foot is currently dressed. LABS: Creatinine is 3.97. DIAGNOSTIC IMPRESSION AND PLAN: Patient with left diabetic foot infection with underlying osteomyelitis, infected hematoma with multiple pathogens in this patient who did have significant ischemic changes. Patient is status post left daeih-cdx-oiof amputation with infected part removed. The patient will not need to be on antibiotics. Continue with daptomycin and cefepime perioperatively and monitor clinical course closely. MMODL / IJN: [id number] /
[2021-03-11] MEDS: ATORVASTATIN 80 MG TAB PO SCH (20:06)
[2021-03-11] MEDS: CEFEPIME 1 GM in SODIUM CHLORIDE 0.9% 50 ML IVPB SCH (20:06)
[2021-03-11 20:52] LABS: Glucose,Whole Blood 121 mg/dL (75-99)
[2021-03-12] MEDS: metroNIDAZOLE-NS PMX 500 MG in SALINE 1 100ML.BAG IVPB SCH ×2 (00:59→07:36)
[2021-03-12] MEDS: MORPHINE SULFATE 4 MG/ML SYRINGE IV PRN (02:00)
[2021-03-12 07:13] LABS: Anisocytosis Slight; HCT 43.2 % (39.0-53.0); HGB 12.1 gm/dL (13.0-17.5); Hypochromasia Marked; MCH 28.4 pg (25.0-35.0); MCHC 28.1 g/dL (31.0-37.0); MCV 101.1 fL (80.0-100.0); Macrocytosis Moderate; Mean Platelet Volume 10.3; Platelet Count 137 k/uL (150-450); RBC 4.27 m/uL (4.30-5.90); WBC 7.1 k/uL (3.8-10.6)
[2021-03-12] MEDS: FLUoxetine HCL 20 MG CAP PO SCH (07:34)
[2021-03-12] MEDS: FUROSEMIDE 20 MG TAB PO SCH (07:34)
[2021-03-12] MEDS: HEPARIN SODIUM,PORCINE/PF 5,000 UNIT/0.5 ML SYRINGE SQ SCH ×2 (07:34→20:09)
[2021-03-12] MEDS: ASPIRIN 81 MG PO SCH (07:34)
[2021-03-12] MEDS: HYDROcodone/APAP 5-325MG 1 EACH TAB PO PRN ×2 (07:34→17:28)
[2021-03-12] MEDS: DEXTROSE 5%-0.9% NACL 1,000 ML IV SCH (07:34)
[2021-03-12] MEDS: SEVELAMER 800 MG TAB PO SCH ×3 (07:36→17:27)
[2021-03-12] MEDS: allopurinoL 100 MG TAB PO SCH (07:36)
[2021-03-12] MEDS: SODIUM BICARBONATE TAB 650 MG TAB PO SCH ×2 (07:36→17:28)
[2021-03-12] MEDS: METOPROLOL SUCCINATE (ER) 25 MG TAB.ER.24H PO SCH (07:37)
[2021-03-12] MEDS: PREGABALIN 25 MG CAP PO SCH (07:37)
[2021-03-12 07:43] LABS: Glucose,Whole Blood 115 mg/dL (75-99)
[2021-03-12] MEDS ORDERED: ORPHENADRINE 30 MG/ML 2 ML VIAL IVP STA (08:33)
--- NOTE | 2021-03-12 08:39 | P.PN ---
Subjective Progress Note Date: 03/12/21 HISTORY OF PRESENT ILLNESS: This is a 66-year-old male with a past medical history significant for chronic kidney disease on hemodialysis, hypertension, hyperlipidemia, diabetes, nicotine dependence, and coronary artery disease with previous CABG 5 in 2011. Patient follows in the office with Dr. Renteria. We have been asked to see the patient in consultation for cardiac clearance. Patient examined at the bedside. Patient is scheduled for left BKA today with Dr. Macias. Patient denies chest pain or pressure. Denies shortness of breath. Patient is able to lay flat in bed without any difficulty. He denies dizziness or lightheadedness. He is scheduled to receive hemodialysis this morning as well. Telemetry reveals sinus mechanism with left bundle branch block CT angios left lower extremity: Left-sided femoral tibial bypass graft noted which demonstrates 50% stenosis at the level of the thigh. At the level of the distal femur there is occlusion noted. The popliteal artery is thrombosed. Arteries appear to opacify possibly from collateral flow. There is diffuse athe romatous change noted throughout Laboratory data: WBC 7.6. Hemoglobin 11.8. Platelet count 136. Sodium 138. Potassium 4.8. BUN 36. Creatinine 5.54. Current home cardiac medications include Midodrine 10 mg 3 times a day, metoprolol succinate 25 mg daily, Lasix 20 mg daily, Plavix 75 mg daily, aspirin 81 mg, and Lipitor 80 mg daily Most recent echocardiogram obtained in April 2020 revealed ejection fraction 30-35%, moderate aortic stenosis, xctg-uf-kmfinejr mitral regurgitation, tpun-cy-nfjfndwz tricuspid regurgitation Patient underwent Lexiscan stress test in April 2020 revealed an abnormal nuclear scan showing evidence of ischemic cardiac myopathy with moderate LV dysfunction with evidence of prior inferior lateral myocardial infarction 03/12/2021 Patient examined this morning at the bedside. He is s/p left BKA. POD #1. Patient reports he had a "rough night" and had a lot of pain. He denies chest pain or pressure. Denies shortness of breath. Vital signs are stable. Echocardiogram completed reveals ejection fraction 30-35%, mild aortic stenosis, mild mitral regurgitation, and mild tricuspid regurgitation PHYSICAL EXAM: VITAL SIGNS: Reviewed. GENERAL: Well-developed in no acute distress. HEENT: Head is normocephalic. Pupils are equal, round. Sclerae anicteric. Mucous membranes of the mouth are moist. Neck supple. No JVD or thyromegaly LUNGS: Respirations even and unlabored. Lungs essentially clear to auscultation bilaterally. HEART: Regular rate and rhythm. S1 and S2 heard. Systolic murmur noted. ABDOMEN: Soft. Nondistended. Nontender. EXTREMITIES: Left BKA noted. No clubbing or cyanosis. No lower extremity melvin ma NEUROLOGIC: Awake and alert. Oriented x 3. ASSESSMENT: Nonhealing left foot wound, status post left BKA Peripheral arterial disease status post left fem-tib artery bypass September 2020 Chronic kidney disease on hemodialysis Coronary artery disease with previous CABG 5 Known ischemic cardiomyopathy with ejection fraction 30-35% Hypertension Hyperlipidemia Diabetes Former nicotine dependence Mild-Moderate aortic stenosis PLAN: Continue current cardiac medications Pain management per internal medicine Further recommendations pending patient's course Nurse practitioner note has been reviewed by physician. Signing provider agrees with the documented findings, assessment, and plan of care. Objective - Vital Signs Vital signs: Vital Signs Temp 97.5 F L 03/12/21 00:58 Pulse 88 03/12/21 00:58 Resp 15 03/12/21 00:58 BP 108/65 03/12/21 00:58 Pulse Ox 98 03/12/21 00:58 Intake & Output 03/11/21 03/12/21 03/12/21 18:59 06:59 18:59 Intake Total 2600 295 Output Total 2100 Balance 500 295 Intake: IV 200 Intake, IV Titration 175 Amount DAPTOmycin 550 mg In 50 Sodium Chloride 0.9% 50 ml @ 100 mls/hr IVPB Q48H [facility] Rx#:[id number] Dextrose 5%-0.9% NaCl 1, 75 000 ml @ 75 mls/hr IV . [id number] [facility] Rx#:[id number] metroNIDAZOLE-NS PMX 500 50 mg In Saline 1 100ml.bag @ 100 mls/hr IVPB Q8HR [facility] Rx#:[id number] Oral 100 120 Hemodialysis 2300 Output: Hemodialysis 2000 Estimated Blood Loss 100 Other: Voiding Method Urinal # Voids 1 - Labs CBC & Chem 7: 03/12/21 06:27 03/11/21 12:30 Labs: Abnormal Lab Results - Last 24 Hours (Table) 03/11/21 03/11/21 03/12/21 Range/Units 12:30 20:49 06:27 RBC 4.27 L (4.30-5.90) m/uL Hgb 12.1 L (13.0-17.5) gm/dL MCV 101.1 H (80.0-100.0) fL MCHC 28.1 L (31.0-37.0) g/dL RDW 19.0 H (11.5-15.5) % Plt Count 137 L (150-450) k/uL Sodium 132 L (137-145) mmol/L Chloride 95 L (98-107) mmol/L Carbon Dioxide 20 L (22-30) mmol/L BUN 21 H (9-20) mg/dL Creatinine 3.87 H (0.66-1.25) mg/dL Glucose 103 H (74-99) mg/dL POC Glucose (mg/dL) 121 H (75-99) mg/dL 03/12/21 Range/Units 07:30 RBC (4.30-5.90) m/uL Hgb (13.0-17.5) gm/dL MCV (80.0-100.0) fL MCHC (31.0-37.0) g/dL RDW (11.5-15.5) % Plt Count (150-450) k/uL Sodium (137-145) mmol/L Chloride (98-107) mmol/L Carbon Dioxide (22-30) mmol/L BUN (9-20) mg/dL Creatinine (0.66-1.25) mg/dL Glucose (74-99) mg/dL POC Glucose (mg/dL) 115 H (75-99) mg/dL Microbiology - Last 24 Hours (Table) 03/08/21 16:20 Blood Culture - Preliminary Blood No Growth after 72 hours
--- NOTE | 2021-03-12 10:31 | P.PN ---
<Rod Ruvalcaba - Last Filed: 03/12/21 10:04> Subjective Progress Note Date: 03/12/21 Hospital Course: Patient is a 66-year-old male for history of end-stage renal disease on hemo dialysis, diabetes mellitus type 2 on insulin, hypertension, coronary artery disease, and chronic left lower extremity wound who initially presented to the ER for worsening of his wound. He had undergone a left foot debridement with wound VAC placement requiring hospitalization from 02/19 through 02/27 and completed a dose of oral antibiotics. He was seen at the wound care clinic on 03/08 were felt that his wound was reinfected and he was told to proceed to the emergency department. Patient was seen and evaluated by wound care, Dr. Larios, and Dr. Macias. He ultimately underwent left-sided BKA on 03/11. Echocardiogram-ejection fraction 30-35%, elevated right end-diastolic pressure, moderate valvular disease Lower extremity TFY-jerx-vczdz femoral tibial bypass graft noted with 50% stenos is, with occlusion at the distal femoral level with free constitution distally, popliteal artery thrombosis, Arteries opacify from collateral flow Physical Examination: Patient seen and examined at bedside. He continues to report not feeling well after surgery. He reports uncontrolled phantom limb pain and feeling of contractions throughout his left leg. Order placed for a one time dose of Norflex and Lyrica increased to 50mg BID will monitor closely. Pt denies any other complaints at this time with the exception of felling tired. He denies headache, lightheadedness, dizziness, chest pain, palpitations, shortness of breath, or any other complaints at this time. He reports planning on going to [facility] on discharge. 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 AV fistula RUE bruit and thrill in tact. Lungs: Decreased breath sounds bilateral, no rhonchi, no rales , no accessory muscle use Abdominal: soft, nontender to palpation, no guarding, no appreciable organomegaly Ext: no gross muscle atrophy, no edema right lower extremity, no contractures, Left BKA, Post-surgical dressing in place. Neuro: CN II-XI grossly intact, no focal neuro deficits Psych: Awake, oriented, appropriate affect Assessment and Plan of Care: Nonhealing left foot ulcer with infection resulting in Left BKA on 03/11/21 Peripheral arterial disease -Status post BKA on the left on 03/11/[address] Macias -Vascular Surgery following, appreciate further recommendations. -ID following, appreciate further recommendations -Continue with cefepime, daptomycin -Increased Lyrica to 50 mg BID -Blood cultures showing no growth 72 hours. Insulin-dependent diabetes mellitus with recent hypoglycemia -Blood sugars well controlled -Decrease D5 infusion to 50mL/hour. -Follow blood glucose levels closely as patient as pt has had recurrent episodes of hypoglycemia this admission. End-stage renal disease on hemodialysis Monday, , and Monday -Nephrology Following, appreciate further recommendations. -Continue Sodium bicarb and Renvela -On Midrin for chronic hypotension Hyponatremia secondary to end-stage renal disease and daily diuretic use. -Consider for fluid management -Follow BMP -Decrease D5 to 50mL per hour. -Monitor closely with Lasix and Prozac Systolic congestive heart failure with ejection fraction 30-35%, ischemic, chronic and currently compensated Coronary artery disease status post CABG 5 Hypertension Dyslipidemia Aortic stenosis -Cardiology following, appreciate recommendations. -Continue with aspirin, Lipitor -Lasix -Metoprolol Lactic acidosis, resolved DVT prophylaxis: Heparin Discussed with: Patient and RN Anticipated discharge: clinical course to determine Anticipated discharge place: [facility] A total of 45 minutes was spent on the care of this complex patient more than 50% of the time was spent in counseling and care Objective - Vital Signs Vital signs: Vital Signs Temp 97.5 F L 03/12/21 00:58 Pulse 88 03/12/21 00:58 Resp 15 03/12/21 00:58 BP 108/65 03/12/21 00:58 Pulse Ox 98 03/12/21 00:58 Intake & Output 03/11/21 03/12/21 03/12/21 18:59 06:59 18:59 Intake Total 2600 295 Output Total 2100 Balance 500 295 Intake: IV 200 Intake, IV Titration 175 Amount DAPTOmycin 550 mg In 50 Sodium Chloride 0.9% 50 ml @ 100 mls/hr IVPB Q48H [facility] Rx#:[id number] Dextrose 5%-0.9% NaCl 1, 75 000 ml @ 75 mls/hr IV . [id number] [facility] Rx#:[id number] metroNIDAZOLE-NS PMX 500 50 mg In Saline 1 100ml.bag @ 100 mls/hr IVPB Q8HR [facility] Rx#:[id number] Oral 100 120 Hemodialysis 2300 Output: Hemodialysis 2000 Estimated Blood Loss 100 Other: Voiding Method Urinal # Voids 1 - Labs CBC & Chem 7: 03/12/21 06:27 03/11/21 12:30 Labs: Abnormal Lab Results - Last 24 Hours (Table) 03/11/21 03/11/21 03/12/21 Range/Units 12:30 20:49 06:27 RBC 4.27 L (4.30-5.90) m/uL Hgb 12.1 L (13.0-17.5) gm/dL MCV 101.1 H (80.0-100.0) fL MCHC 28.1 L (31.0-37.0) g/dL RDW 19.0 H (11.5-15.5) % Plt Count 137 L (150-450) k/uL Sodium 132 L (137-145) mmol/L Chloride 95 L (98-107) mmol/L Carbon Dioxide 20 L (22-30) mmol/L BUN 21 H (9-20) mg/dL Creatinine 3.87 H (0.66-1.25) mg/dL Glucose 103 H (74-99) mg/dL POC Glucose (mg/dL) 121 H (75-99) mg/dL 03/12/21 Range/Units 07:30 RBC (4.30-5.90) m/uL Hgb (13.0-17.5) gm/dL MCV (80.0-100.0) fL MCHC (31.0-37.0) g/dL RDW (11.5-15.5) % Plt Count (150-450) k/uL Sodium (137-145) mmol/L Chloride (98-107) mmol/L Carbon Dioxide (22-30) mmol/L BUN (9-20) mg/dL Creatinine (0.66-1.25) mg/dL Glucose (74-99) mg/dL POC Glucose (mg/dL) 115 H (75-99) mg/dL Microbiology - Last 24 Hours (Table) 03/08/21 16:20 Blood Culture - Preliminary Blood No Growth after 72 hours <Libia Mckeon - Last Filed: 03/12/21 20:50> Subjective Rod Ruvalcaba NP rendered care for this patient independently, reviewed the findings and plan as documented in the note above. I did not physically speak with or examine the patient on this date. Objective - Vital Signs Vital signs: Vital Signs Temp 97.5 F L 03/12/21 14:00 Pulse 86 03/12/21 14:00 Resp 18 03/12/21 14:00 BP 94/60 03/12/21 14:00 Pulse Ox 99 03/12/21 14:00 Intake & Output 03/12/21 03/12/21 03/13/21 06:59 18:59 06:59 Intake Total 295 Balance 295 Weight 90.718 kg Intake: Intake, IV Titration 175 Amount DAPTOmycin 550 mg In 50 Sodium Chloride 0.9% 50 ml @ 100 mls/hr IVPB Q48H [facility] Rx#:[id number] Dextrose 5%-0.9% NaCl 1, 75 000 ml @ 50 mls/hr IV . Q20H [facility] Rx#:[id number] metroNIDAZOLE-NS PMX 500 50 mg In Saline 1 100ml.bag @ 100 mls/hr IVPB Q8HR [facility] Rx#:[id number] Oral 120 Other: Voiding Method Urinal # Voids 1 1 - Labs CBC & Chem 7: 03/12/21 06:27 03/12/21 06:27 Labs: Abnormal Lab Results - Last 24 Hours (Table) 03/11/21 03/12/21 03/12/21 Range/Units 20:49 06:27 06:27 RBC 4.27 L (4.30-5.90) m/uL Hgb 12.1 L (13.0-17.5) gm/dL MCV 101.1 H (80.0-100.0) fL MCHC 28.1 L (31.0-37.0) g/dL RDW 19.0 H (11.5-15.5) % Plt Count 137 L (150-450) k/uL Sodium 131 L (135-145) mmol/L Chloride 95 L (96-109) mmol/L Carbon Dioxide 19.6 L (21.6-31.8) mmol/L Anion Gap 16.40 H (4.00-12.00) mmol/L Creatinine 4.8 H (0.6-1.5) mg/dL Est GFR (CKD-EPI)AfAm 13.7 L (60.0-200.0) Est GFR (CKD-EPI)NonAf 11.8 L (60.0-200.0) BUN/Creatinine Ratio 4.40 L (12.00-20.00) Ratio Glucose 123 H (70-110) mg/dL POC Glucose (mg/dL) 121 H (75-99) mg/dL 03/12/21 03/12/21 Range/Units 07:30 11:39 RBC (4.30-5.90) m/uL Hgb (13.0-17.5) gm/dL MCV (80.0-100.0) fL MCHC (31.0-37.0) g/dL RDW (11.5-15.5) % Plt Count (150-450) k/uL Sodium (135-145) mmol/L Chloride (96-109) mmol/L Carbon Dioxide (21.6-31.8) mmol/L Anion Gap (4.00-12.00) mmol/L Creatinine (0.6-1.5) mg/dL Est GFR (CKD-EPI)AfAm (60.0-200.0) Est GFR (CKD-EPI)NonAf (60.0-200.0) BUN/Creatinine Ratio (12.00-20.00) Ratio Glucose (70-110) mg/dL POC Glucose (mg/dL) 115 H 118 H (75-99) mg/dL Microbiology - Last 24 Hours (Table) 03/08/21 16:20 Blood Culture - Preliminary Blood No Growth after 96 hours
--- NOTE | 2021-03-12 10:58 | P.PN ---
Subjective Patient is seen in follow-up for end-stage renal disease. No active complaints. S/p left BKA. Sitting up in chair. Vital signs are stable. General: The patient appeared well nourished and normally developed. HEENT: Head exam is unremarkable. LUNGS: Breath sounds decreased. HEART: Rate and Rhythm are regular. ABDOMEN: Soft, no distention. EXTREMITITES: Left BKA noted. Objective - Vital Signs Vital signs: Vital Signs Temp 97.4 F L 03/12/21 08:00 Pulse 83 03/12/21 08:00 Resp 17 03/12/21 08:00 BP 98/59 03/12/21 08:00 Pulse Ox 95 03/12/21 08:00 Intake & Output 03/11/21 03/12/21 03/12/21 18:59 06:59 18:59 Intake Total 2600 295 Output Total 2100 Balance 500 295 Weight 90.718 kg Intake: IV 200 Intake, IV Titration 175 Amount DAPTOmycin 550 mg In 50 Sodium Chloride 0.9% 50 ml @ 100 mls/hr IVPB Q48H [facility] Rx#:[id number] Dextrose 5%-0.9% NaCl 1, 75 000 ml @ 75 mls/hr IV . [id number] [facility] Rx#:[id number] metroNIDAZOLE-NS PMX 500 50 mg In Saline 1 100ml.bag @ 100 mls/hr IVPB Q8HR [facility] Rx#:[id number] Oral 100 120 Hemodialysis 2300 Output: Hemodialysis 2000 Estimated Blood Loss 100 Other: Voiding Method Urinal # Voids 1 - Labs CBC & Chem 7: 03/12/21 06:27 03/11/21 12:30 Labs: Abnormal Lab Results - Last 24 Hours (Table) 03/11/21 03/11/21 03/12/21 Range/Units 12:30 20:49 06:27 RBC 4.27 L (4.30-5.90) m/uL Hgb 12.1 L (13.0-17.5) gm/dL MCV 101.1 H (80.0-100.0) fL MCHC 28.1 L (31.0-37.0) g/dL RDW 19.0 H (11.5-15.5) % Plt Count 137 L (150-450) k/uL Sodium 132 L (137-145) mmol/L Chloride 95 L (98-107) mmol/L Carbon Dioxide 20 L (22-30) mmol/L BUN 21 H (9-20) mg/dL Creatinine 3.87 H (0.66-1.25) mg/dL Glucose 103 H (74-99) mg/dL POC Glucose (mg/dL) 121 H (75-99) mg/dL 03/12/21 Range/Units 07:30 RBC (4.30-5.90) m/uL Hgb (13.0-17.5) gm/dL MCV (80.0-100.0) fL MCHC (31.0-37.0) g/dL RDW (11.5-15.5) % Plt Count (150-450) k/uL Sodium (137-145) mmol/L Chloride (98-107) mmol/L Carbon Dioxide (22-30) mmol/L BUN (9-20) mg/dL Creatinine (0.66-1.25) mg/dL Glucose (74-99) mg/dL POC Glucose (mg/dL) 115 H (75-99) mg/dL Microbiology - Last 24 Hours (Table) 03/08/21 16:20 Blood Culture - Preliminary Blood No Growth after 72 hours Assessment and Plan Plan: Assessment: 1. End-stage renal disease maintained on hemodialysis on Monday schedule. 2. Left foot wound status post debridement and wound VAC placement. On IV antibiotics. Status post L BKA March 11. 3. Chronic hypotension maintained on midodrine. 4. Chronic kidney disease mineral bone disease maintained on Renvela. Also on bicarb. 5. Diabetes mellitus. 6. Hyponatremia secondary to chronic kidney disease. Plan: Hemodialysis tomorrow.
[2021-03-12 11:31] LABS: African American GFR (CKD) 13.7 (60.0-200.0); Anion Gap 16.4 mmol/L (4.00-12.00); BUN/Creat Ratio 4.4 Ratio (12.00-20.00); Blood Urea Nitrogen 21.1 mg/dL (9.0-27.0); Calcium 9.6 mg/dL (8.7-10.3); Carbon Dioxide 19.6 mmol/L (21.6-31.8); Non-African American GFR(CKD) 11.8 (60.0-200.0); Potassium 4.1 mmol/L (3.5-5.5)
[2021-03-12 11:51] LABS: Glucose,Whole Blood 118 mg/dL (75-99)
[2021-03-12] MEDS ORDERED: PREGABALIN 50 MG CAP PO SCH (16:00)
[2021-03-12] MEDS: metroNIDAZOLE 500 MG TAB PO SCH ×2 (16:10→23:51)
--- NOTE | 2021-03-12 17:08 | PN ---
PROGRESS NOTE DATE OF SERVICE: 03/12/2021 REASON FOR FOLLOWUP: Left diabetic foot wound and osteomyelitis. INTERVAL HISTORY: The patient is afebrile. The patient is status post left jcaam-aos-[id number] amputation. The patient tolerated the procedure. Pain is currently controlled. No chest pain, shortness of breath or cough. No abdominal pain or diarrhea. PHYSICAL EXAMINATION: Blood pressure 119/82 with a pulse of 83, temperature of 97.5. He is 99% on 2 L nasal cannula. General description is an elderly male lying in bed in no distress. Respiratory system: Unlabored breathing, clear to auscultation anteriorly. Heart S1, S2. Regular rate and rhythm. Abdomen soft, no tenderness. LABS: Hemoglobin is 12.1, white count 6.1 creatinine 4.8. DIAGNOSTIC IMPRESSION AND PLAN: Patient with left diabetic foot infection and underlying osteomyelitis in this patient failing medical therapy. Did have significant amount of ischemia status post left [id number] amputation with infected part removed. Will not need to be on long-term antibiotic. Continue on cefepime for another day or 2 with ( ) and continue supportive care. MMODL / IJN: [id number] /
[2021-03-12 17:27] LABS: Glucose,Whole Blood 96 mg/dL (75-99)
--- NOTE | 2021-03-12 19:04 | P.PN ---
Subjective Progress Note Date: 03/12/21 Patient seen and examined. Overall doing well. Pain is decently controlled. Left lower extremity dressing and knee immobilizer in place. Clean and dry. Postoperative day #1 from left below-knee amputation. Severe peripheral arterial disease Overall doing well. PT OT evaluation. We'll plan to change dressing tomorrow. Objective - Vital Signs Vital signs: Vital Signs Temp 97.5 F L 03/12/21 14:00 Pulse 86 03/12/21 14:00 Resp 18 03/12/21 14:00 BP 94/60 03/12/21 14:00 Pulse Ox 99 03/12/21 14:00 Intake & Output 03/12/21 03/12/21 03/13/21 06:59 18:59 06:59 Intake Total 295 Balance 295 Weight 90.718 kg Intake: Intake, IV Titration 175 Amount DAPTOmycin 550 mg In 50 Sodium Chloride 0.9% 50 ml @ 100 mls/hr IVPB Q48H FERNANDO Rx#:[id number] Dextrose 5%-0.9% NaCl 1, 75 000 ml @ 50 mls/hr IV . Q20H FERNANDO Rx#:[id number] metroNIDAZOLE-NS PMX 500 50 mg In Saline 1 100ml.bag @ 100 mls/hr IVPB Q8HR FERNANDO Rx#:[id number] Oral 120 Other: Voiding Method Urinal # Voids 1 1 - Labs CBC & Chem 7: 03/12/21 06:27 03/12/21 06:27 Labs: Abnormal Lab Results - Last 24 Hours (Table) 03/11/21 03/12/21 03/12/21 Range/Units 20:49 06:27 06:27 RBC 4.27 L (4.30-5.90) m/uL Hgb 12.1 L (13.0-17.5) gm/dL MCV 101.1 H (80.0-100.0) fL MCHC 28.1 L (31.0-37.0) g/dL RDW 19.0 H (11.5-15.5) % Plt Count 137 L (150-450) k/uL Sodium 131 L (135-145) mmol/L Chloride 95 L (96-109) mmol/L Carbon Dioxide 19.6 L (21.6-31.8) mmol/L Anion Gap 16.40 H (4.00-12.00) mmol/L Creatinine 4.8 H (0.6-1.5) mg/dL Est GFR (CKD-EPI)AfAm 13.7 L (60.0-200.0) Est GFR (CKD-EPI)NonAf 11.8 L (60.0-200.0) BUN/Creatinine Ratio 4.40 L (12.00-20.00) Ratio Glucose 123 H (70-110) mg/dL POC Glucose (mg/dL) 121 H (75-99) mg/dL 03/12/21 03/12/21 Range/Units 07:30 11:39 RBC (4.30-5.90) m/uL Hgb (13.0-17.5) gm/dL MCV (80.0-100.0) fL MCHC (31.0-37.0) g/dL RDW (11.5-15.5) % Plt Count (150-450) k/uL Sodium (135-145) mmol/L Chloride (96-109) mmol/L Carbon Dioxide (21.6-31.8) mmol/L Anion Gap (4.00-12.00) mmol/L Creatinine (0.6-1.5) mg/dL Est GFR (CKD-EPI)AfAm (60.0-200.0) Est GFR (CKD-EPI)NonAf (60.0-200.0) BUN/Creatinine Ratio (12.00-20.00) Ratio Glucose (70-110) mg/dL POC Glucose (mg/dL) 115 H 118 H (75-99) mg/dL Microbiology - Last 24 Hours (Table) 03/08/21 16:20 Blood Culture - Preliminary Blood No Growth after 96 hours
[2021-03-12] MEDS: ATORVASTATIN 80 MG TAB PO SCH (20:08)
[2021-03-12] MEDS: PREGABALIN 50 MG CAP PO SCH (20:09)
[2021-03-12 21:15] LABS: Glucose,Whole Blood 116 mg/dL (75-99)
[2021-03-12] MEDS: CEFEPIME 1 GM in SODIUM CHLORIDE 0.9% 50 ML IVPB SCH (21:44)
[2021-03-13] MEDS: HYDROcodone/APAP 7.5-325MG 1 EACH TAB PO PRN (00:21)
[2021-03-13] MEDS ORDERED: ORPHENADRINE 30 MG/ML 2 ML VIAL IVP STA (02:10)
[2021-03-13] MEDS: DEXTROSE 5%-0.9% NACL 1,000 ML IV SCH ×2 (03:15→16:57)
[2021-03-13 07:42] LABS: Glucose,Whole Blood 72 mg/dL (75-99)
[2021-03-13] MEDS: allopurinoL 100 MG TAB PO SCH (09:23)
[2021-03-13] MEDS: FUROSEMIDE 20 MG TAB PO SCH (09:23)
[2021-03-13] MEDS: PREGABALIN 50 MG CAP PO SCH ×2 (09:23→21:33)
[2021-03-13] MEDS: SODIUM BICARBONATE TAB 650 MG TAB PO SCH ×2 (09:23→16:53)
[2021-03-13] MEDS: SEVELAMER 800 MG TAB PO SCH ×3 (09:23→16:53)
[2021-03-13] MEDS: MIDODRINE 5 MG TAB PO PRN (09:23)
[2021-03-13] MEDS: FLUoxetine HCL 20 MG CAP PO SCH (09:23)
[2021-03-13] MEDS: METOPROLOL SUCCINATE (ER) 25 MG TAB.ER.24H PO SCH (09:23)
[2021-03-13] MEDS: metroNIDAZOLE 500 MG TAB PO SCH ×2 (09:23→16:53)
--- NOTE | 2021-03-13 09:25 | P.PN ---
Subjective Progress Note Date: 03/13/21 Principal diagnosis: This is a 66-year-old male with ESRD on dialysis Monday, came in with left foot own and underwent BKA. Currently is sleepy. Vital signs are stable. Is on antibiotics IV Known with diabetes mellitus and coronary artery disease sleep apnea history of glomerulonephritis right kidney transplant Objective - Vital Signs Vital signs: Vital Signs Temp 97.8 F 03/13/21 08:00 Pulse 92 03/13/21 08:00 Resp 20 03/13/21 08:00 BP 92/46 03/13/21 08:00 Pulse Ox 95 03/13/21 08:00 Intake & Output 03/12/21 03/13/21 03/13/21 18:59 06:59 18:59 Weight 90.718 kg Other: Voiding Method CAPD # Voids 1 0 On examination no facial asymmetry Lungs are clear to auscultation good air entry bilaterally Heart sounds unremarkable for any murmur rub gallop Abdomen soft nontender Extremity exam was no edema BKA on the left - Labs CBC & Chem 7: 03/12/21 06:27 03/12/21 06:27 Labs: Abnormal Lab Results - Last 24 Hours (Table) 03/12/21 03/12/21 03/12/21 Range/Units 06:27 11:39 21:14 Sodium 131 L (135-145) mmol/L Chloride 95 L (96-109) mmol/L Carbon Dioxide 19.6 L (21.6-31.8) mmol/L Anion Gap 16.40 H (4.00-12.00) mmol/L Creatinine 4.8 H (0.6-1.5) mg/dL Est GFR (CKD-EPI)AfAm 13.7 L (60.0-200.0) Est GFR (CKD-EPI)NonAf 11.8 L (60.0-200.0) BUN/Creatinine Ratio 4.40 L (12.00-20.00) Ratio Glucose 123 H (70-110) mg/dL POC Glucose (mg/dL) 118 H 116 H (75-99) mg/dL 03/13/21 Range/Units 07:40 Sodium (135-145) mmol/L Chloride (96-109) mmol/L Carbon Dioxide (21.6-31.8) mmol/L Anion Gap (4.00-12.00) mmol/L Creatinine (0.6-1.5) mg/dL Est GFR (CKD-EPI)AfAm (60.0-200.0) Est GFR (CKD-EPI)NonAf (60.0-200.0) BUN/Creatinine Ratio (12.00-20.00) Ratio Glucose (70-110) mg/dL POC Glucose (mg/dL) 72 L (75-99) mg/dL Microbiology - Last 24 Hours (Table) 03/08/21 16:20 Blood Culture - Preliminary Blood No Growth after 96 hours Assessment and Plan Assessment: Impression 1. ESRD on dialysis Monday, axis in the right upper arm 2. Admitted with left leg wound underwent BKA on 03/08/2021 3. History of 60 sleep apnea, coronary artery disease. 4. Anemia hemoglobin is 12.1 about target 5. Mild hyponatremia secondary to ESRD Recommendation We'll be dialyzed today as per schedule. Maintain current medications Watch calcium phosphorus hemoglobin
[2021-03-13 09:35] LABS: Glucose,Whole Blood 74 mg/dL (75-99)
[2021-03-13] MEDS: HEPARIN SODIUM,PORCINE/PF 5,000 UNIT/0.5 ML SYRINGE SQ SCH ×2 (09:53→21:33)
--- NOTE | 2021-03-13 11:10 | P.PN ---
Subjective Progress Note Date: 03/13/21 Hospital Course: Patient is a 66-year-old male for history of end-stage renal disease on hemodialysis, diabetes mellitus type 2 on insulin, hypertension, coronary artery disease, and chronic left lower extremity wound who initially presented to the ER for worsening of his wound. He had undergone a left foot debridement with wound VAC placement requiring hospitalization from 02/19 through 02/27 and completed a dose of oral antibiotics. He was seen at the wound care clinic on 03/08 were felt that his wound was reinfected and he was told to proceed to the emergency department. Patient was seen and evaluated by wound care, Dr. Larios, and Dr. Macias. He ultimately underwent left-sided BKA on 03/11/[address] Macias. Echocardiogram-ejection fraction 30-35%, elevated right end-diastolic pressure, moderate valvular disease Lower extremity [id number] femoral tibial bypass graft noted with 50% stenosis, with occlusion at the distal femoral level with free constitution distally, popliteal artery thrombosis, Arteries opacify from collateral flow Physical Examination: Patient seen and examined at bedside. He is post-op day 2. He was very sleepy and confused this morning, blood glucose 74 and patient was given juice and became more alert and again oriented. Pt states that phantom leg pain and contractions he was was feeling yesterday is "much better" and currently controlled. He denies having any other complaints at this time including headache, lightheadedness, dizziness, chest pain, palpitations, shortness of breath, or any other complaints at this time. Pt scheduled for dialysis today. General: non toxic, no distress, appears at stated age Derm: warm, dry, bruising right upper arm near fistula wind site manager: atraumatic, normocephalic, symmetric Eyes: EOMI, no lid lag, anicteric sclera Mouth: no lip lesion, mucus membranes moist Cardiovascular: S1S2 reg, Systolic Murmur, positive posterior tibial pulse RLE. AV fistula RUE bruit and thrill in tact. Lungs: Decreased breath sounds bilateral, no rhonchi, no rales , no accessory muscle use Abdominal: soft, nontender to palpation, no guarding, no appreciable organomegaly Ext: no gross muscle atrophy, no edema right lower extremity, no contractures, Left BKA, Post-surgical dressing in place. Neuro: CN II-XI grossly intact, no focal neuro deficits Psych: Awake, oriented, appropriate affect Assessment and Plan of Care: Status post Left BKA on 03/11/21 secondary to Nonhealing left foot ulcer with infection Peripheral arterial disease -Status post BKA on the left on 03/11/[address] Macias -Vascular Surgery following, appreciate further recommendations. -ID following, appreciate further recommendations -Continue IV antibiotics with cefepime and daptomycin -Increased Lyrica to 50 mg BID -Blood cultures showing no growth 96 hours. Insulin-dependent diabetes mellitus with recent hypoglycemia -Patient continues to have intermittent episodes of hypoglycemia and remains on D5 NS at 50mL/hour. Pt very sleepy and confused this morning, blood glucose 74 patient given juice and became more alert and again oriented. -Continue D5 infusion at 50mL/hour and encourage pt's oral intake. -Continue to follow blood glucose levels closely as patient as pt continues to have recurrent episodes of hypoglycemia this admission. -Glycemic protocol End-stage renal disease on hemodialysis Monday, , and Monday -Nephrology Following, ordered for patient to continue dialysis Tuesdays, , and Monday. -Continue Sodium bicarb and Renvela -On Midodrine for chronic hypotension Hyponatremia secondary to end-stage renal disease and daily diuretic use. -Consider for fluid management -Follow BMP -Continue D5 to 50mL per hour. -Monitor closely with Lasix and Prozac Systolic congestive heart failure with ejection fraction 30-35%, ischemic, chron ic and currently compensated Coronary artery disease status post CABG 5 Hypertension Dyslipidemia Aortic stenosis -Cardiology following, appreciate recommendations. -Continue with aspirin, Lipitor -Lasix -Metoprolol Lactic acidosis, resolved DVT prophylaxis: Heparin Discussed with: Patient and RN Anticipated discharge: clinical course to determine Anticipated discharge place: [facility] A total of 45 minutes was spent on the care of this complex patient more than 50% of the time was spent in counseling and care Objective - Vital Signs Vital signs: Vital Signs Temp 97.8 F 03/13/21 08:00 Pulse 92 03/13/21 08:00 Resp 20 03/13/21 08:00 BP 92/46 03/13/21 08:00 Pulse Ox 95 03/13/21 08:00 Intake & Output 03/12/21 03/13/21 03/13/21 18:59 06:59 18:59 Weight 90.718 kg Other: Voiding Method CAPD # Voids 1 0 - Labs CBC & Chem 7: 03/12/21 06:27 03/12/21 06:27 Labs: Abnormal Lab Results - Last 24 Hours (Table) 03/12/21 03/12/21 03/12/21 Range/Units 06:27 11:39 21:14 Sodium 131 L (135-145) mmol/L Chloride 95 L (96-109) mmol/L Carbon Dioxide 19.6 L (21.6-31.8) mmol/L Anion Gap 16.40 H (4.00-12.00) mmol/L Creatinine 4.8 H (0.6-1.5) mg/dL Est GFR (CKD-EPI)AfAm 13.7 L (60.0-200.0) Est GFR (CKD-EPI)NonAf 11.8 L (60.0-200.0) BUN/Creatinine Ratio 4.40 L (12.00-20.00) Ratio Glucose 123 H (70-110) mg/dL POC Glucose (mg/dL) 118 H 116 H (75-99) mg/dL 03/13/21 Range/Units 07:40 Sodium (135-145) mmol/L Chloride (96-109) mmol/L Carbon Dioxide (21.6-31.8) mmol/L Anion Gap (4.00-12.00) mmol/L Creatinine (0.6-1.5) mg/dL Est GFR (CKD-EPI)AfAm (60.0-200.0) Est GFR (CKD-EPI)NonAf (60.0-200.0) BUN/Creatinine Ratio (12.00-20.00) Ratio Glucose (70-110) mg/dL POC Glucose (mg/dL) 72 L (75-99) mg/dL Microbiology - Last 24 Hours (Table) 03/08/21 16:20 Blood Culture - Preliminary Blood No Growth after 96 hours
[2021-03-13 11:28] LABS: Glucose,Whole Blood 96 mg/dL (75-99)
[2021-03-13 12:27] LABS: Anisocytosis Slight; HCT 37.8 % (39.0-53.0); HGB 11.4 gm/dL (13.0-17.5); Hypochromasia Marked; MCHC 30.1 g/dL (31.0-37.0); MCV 99.7 fL (80.0-100.0); Macrocytosis Moderate; Mean Platelet Volume 10.5; Platelet Count 135 k/uL (150-450); RBC 3.79 m/uL (4.30-5.90); RDW 18.8 % (11.5-15.5); WBC 7.5 k/uL (3.8-10.6)
[2021-03-13 12:42] LABS: African American GFR (CKD) 12 (>60 ml/min/1.73 sqM); Anion Gap 14 mmol/L; Blood Urea Nitrogen 25 mg/dL (9-20); Calcium 9.3 mg/dL (8.4-10.2); Carbon Dioxide 20 mmol/L (22-30); Chloride 97 mmol/L (98-107); Glucose 104 mg/dL (74-99); Magnesium 2.1 mg/dL (1.6-2.3); Non-African American GFR(CKD) 10 (>60 ml/min/1.73 sqM); Potassium 4.7 mmol/L (3.5-5.1); Sodium 131 mmol/L (137-145)
--- NOTE | 2021-03-13 13:13 | P.PN ---
Subjective Progress Note Date: 03/13/21 Patient seen and examined. Overall doing well. Nursing staff states he was slightly confused this morning but seem to her back point given sugar, blood glucose at that time was 74 Left lower extremity dressing and knee immobilizer in place. Clean and dry. The dressing was changed. The amputation site is clean and dry. No hematoma or evidence of ischemia Postoperative day #2 from left below-knee amputation. Severe peripheral arterial disease Overall doing well. PT OT evaluation. Continue medical management. Rigid dressing and stump drywall foreman ordered today Objective - Vital Signs Vital signs: Vital Signs Temp 97.8 F 03/13/21 08:00 Pulse 88 03/13/21 09:36 Resp 18 03/13/21 09:36 BP 113/66 03/13/21 09:36 Pulse Ox 95 03/13/21 08:00 Intake & Output 03/12/21 03/13/21 03/13/21 18:59 06:59 18:59 Weight 90.718 kg Other: Voiding Method CAPD # Voids 1 0 - Labs CBC & Chem 7: 03/13/21 12:06 03/13/21 12:06 Labs: Abnormal Lab Results - Last 24 Hours (Table) 03/12/21 03/13/21 03/13/21 Range/Units 21:14 07:40 09:34 RBC (4.30-5.90) m/uL Hgb (13.0-17.5) gm/dL Hct (39.0-53.0) % MCHC (31.0-37.0) g/dL RDW (11.5-15.5) % Plt Count (150-450) k/uL Sodium (137-145) mmol/L Chloride (98-107) mmol/L Carbon Dioxide (22-30) mmol/L BUN (9-20) mg/dL Creatinine (0.66-1.25) mg/dL Glucose (74-99) mg/dL POC Glucose (mg/dL) 116 H 72 L 74 L (75-99) mg/dL 03/13/21 03/13/21 Range/Units 12:06 12:06 RBC 3.79 L (4.30-5.90) m/uL Hgb 11.4 L (13.0-17.5) gm/dL Hct 37.8 L (39.0-53.0) % MCHC 30.1 L (31.0-37.0) g/dL RDW 18.8 H (11.5-15.5) % Plt Count 135 L (150-450) k/uL Sodium 131 L (137-145) mmol/L Chloride 97 L (98-107) mmol/L Carbon Dioxide 20 L (22-30) mmol/L BUN 25 H (9-20) mg/dL Creatinine 5.47 H (0.66-1.25) mg/dL Glucose 104 H (74-99) mg/dL POC Glucose (mg/dL) (75-99) mg/dL Microbiology - Last 24 Hours (Table) 03/08/21 16:20 Blood Culture - Preliminary Blood No Growth after 96 hours
[2021-03-13] MEDS: HYDROcodone/APAP 5-325MG 1 EACH TAB PO PRN (13:25)
[2021-03-13] MEDS: MORPHINE SULFATE 4 MG/ML SYRINGE IV PRN (14:34)
--- NOTE | 2021-03-13 16:29 | P.PN ---
Subjective Progress Note Date: 03/13/21 Physical pleasant 66-year-old gentleman who follows in the office with Dr. Gibbs. He has a history of chronic kidney disease on hemodialysis, hypertension, hyperlipidemia, diabetes, nicotine dependence, and coronary artery disease with previous CABG 5 in 2011. He presented for nonhealing wound on the left lower extremity. Subsequently underwent left BKA by Dr. Macias. He is postop day #2. Echocardiogram completed this admission shows ejection fraction 30-35% which is stable since April 2020 with mild aortic stenosis, mild mitral regurgitation and mild tricuspid regurgitation. From a cardiac standpoint he's relatively stable. Complaining of pain at the site of his coccyx ulcer. Blood pressure has been on the low side. He is currently on metoprolol succinate 25 mg daily he is also on midodrine for blood pressure support. He is scheduled to undergo hemodialysis this morning. Objective - Vital Signs Vital signs: Vital Signs Temp 97.4 F L 03/13/21 14:00 Pulse 90 03/13/21 14:00 Resp 18 03/13/21 14:00 BP 111/58 03/13/21 14:00 Pulse Ox 94 L 03/13/21 14:00 Intake & Output 03/12/21 03/13/21 03/13/21 18:59 06:59 18:59 Weight 90.718 kg Other: Voiding Method CAPD # Voids 1 0 - Exam PHYSICAL EXAMINATION: HEENT: Head is atraumatic, normocephalic. Pupils equal, round. Neck is supple. There is no elevated jugular venous pressure. HEART EXAMINATION: Heart sounds regular, S1 and S2 normal. With a systolic murmur noted. CHEST EXAMINATION: Lungs are clear to auscultation and precussion. No chest wall tenderness is noted on palpation or with deep breathing. ABDOMEN: Soft, nontender. Bowel sounds are heard. No organomegaly noted. EXTREMITIES: Left BKA noted. No right lower extremity edema. Right upper arm AV fistula. NEUROLOGIC patient is awake, alert and oriented x3. . - Labs CBC & Chem 7: 03/13/21 12:06 03/13/21 12:06 Labs: Abnormal Lab Results - Last 24 Hours (Table) 03/12/21 03/13/21 03/13/21 Range/Units 21:14 07:40 09:34 RBC (4.30-5.90) m/uL Hgb (13.0-17.5) gm/dL Hct (39.0-53.0) % MCHC (31.0-37.0) g/dL RDW (11.5-15.5) % Plt Count (150-450) k/uL Sodium (137-145) mmol/L Chloride (98-107) mmol/L Carbon Dioxide (22-30) mmol/L BUN (9-20) mg/dL Creatinine (0.66-1.25) mg/dL Glucose (74-99) mg/dL POC Glucose (mg/dL) 116 H 72 L 74 L (75-99) mg/dL 03/13/21 03/13/21 Range/Units 12:06 12:06 RBC 3.79 L (4.30-5.90) m/uL Hgb 11.4 L (13.0-17.5) gm/dL Hct 37.8 L (39.0-53.0) % MCHC 30.1 L (31.0-37.0) g/dL RDW 18.8 H (11.5-15.5) % Plt Count 135 L (150-450) k/uL Sodium 131 L (137-145) mmol/L Chloride 97 L (98-107) mmol/L Carbon Dioxide 20 L (22-30) mmol/L BUN 25 H (9-20) mg/dL Creatinine 5.47 H (0.66-1.25) mg/dL Glucose 104 H (74-99) mg/dL POC Glucose (mg/dL) (75-99) mg/dL Microbiology - Last 24 Hours (Table) 03/08/21 16:20 Blood Culture - Preliminary Blood No Growth after 96 hours Assessment and Plan Assessment: #1 Nonhealing left foot wound, status post left BKA #2 peripheral artery disease status post left fem-tib artery bypass September 2020 #3 ischemic cardiomyopathy #4 CAD with prior CABG 5 #5 chronic kidney disease on hemodialysis #6 hypertension #7 hyperlipidemia #8 diabetes #9 mild aortic stenosis Plan: From cardiology's perspective medications were reviewed and we will continue the same. We will continue to follow the patient and provide further recommendations accordingly. CONTROL OPERATOR FLOW [employer]AT note has been reviewed, I agree with a documented findings and plan of care. Patient was seen and examined.
[2021-03-13 17:00] LABS: Glucose,Whole Blood 125 mg/dL (75-99)
--- NOTE | 2021-03-13 17:39 | PN ---
PROGRESS NOTE DATE OF SERVICE: 03/13/2021. REASON FOR FOLLOWUP: Left diabetic foot infection with osteomyelitis and gangrene. INTERVAL HISTORY: The patient is afebrile. The patient is breathing comfortably. Still complaining of significant pain to the left mxhyw-vhz-vvfh amputation site. No chest pain, shortness of breath or cough. No abdominal pain or diarrhea. PHYSICAL EXAMINATION: Blood pressure 111/58 with a pulse of 90, temperature 97.4. She is 94% on 2 L nasal cannula. General description is an elderly male lying in bed in no distress. RESPIRATORY SYSTEM: Unlabored breathing. Clear to auscultation anteriorly. HEART: S1, S2. Regular rate and rhythm. ABDOMEN: Soft. No tenderness. LABS: Hemoglobin is 11.4, white count 7.5. BUN of 25, creatinine 5.47. DIAGNOSTIC IMPRESSION AND PLAN: Patient with left foot osteomyelitis with underlying diabetes in this patient who did have gangrene, status post left pfcxm-jww-qfdc amputation with infected part removed. Hence the patient is not bacteremic. Recommend discontinuing antibiotics tomorrow after tomorrow's dose, and we will monitor the patient closely off antibiotic therapy afterwards. Continue supportive care. MMODL / IJN: [id number] /
[2021-03-13 20:35] LABS: Glucose,Whole Blood 112 mg/dL (75-99)
[2021-03-13] MEDS: ATORVASTATIN 80 MG TAB PO SCH (21:33)
[2021-03-13] MEDS: CEFEPIME 1 GM in SODIUM CHLORIDE 0.9% 50 ML IVPB SCH (21:34)
[2021-03-14] MEDS: metroNIDAZOLE 500 MG TAB PO SCH ×3 (00:46→17:17)
[2021-03-14 06:55] LABS: Glucose,Whole Blood 75 mg/dL (75-99)
--- NOTE | 2021-03-14 08:04 | P.PN ---
Subjective Progress Note Date: 03/14/21 Principal diagnosis: This is a 66-year-old male with ESRD on dialysis Monday, came in with left foot own and underwent BKA. This morning he is afebrile, somewhat short of breath on oxygen 6 L of nasal cannula but had to be bumped up. He does have cough. Also complains of abdominal discomfort no nausea vomiting diarrhea Vital signs , low-grade temperature 100.2 artery in the 90 blood pressure in the 80s to 90s. Is on antibiotics IV Known with diabetes mellitus and coronary artery disease sleep apnea history of glomerulonephritis right kidney transplant Objective - Vital Signs Vital signs: Vital Signs Temp 100.2 F H 03/14/21 05:52 Pulse 91 03/14/21 05:52 Resp 15 03/13/21 19:38 BP 97/59 03/14/21 05:52 Pulse Ox 92 L 03/14/21 07:32 Intake & Output 03/13/21 03/14/21 03/14/21 18:59 06:59 18:59 Intake Total 300 Output Total 2300 0 Balance -2000 0 Intake: Hemodialysis 300 Output: Urine 0 Hemodialysis 2300 Other: Voiding Method CAPD # Voids 0 0 # Bowel Movements 0 On exam awake alert oriented slightly short of breath Neck is supple no facial asymmetry Lungs are significant for good air entry bilaterally somewhat diminished although on the left base Heart sounds are unremarkable for any murmur rub gallop Abdomen soft nontender Extremity exam reveals edema of the right upper extremity with the accesses. The axis looks normal nontender non-erythematous. The left BKA stump is wrapped and the dressing looks clean but doesn't Andrew wraps over the dressing therefore I'm not sure Neurologically awake alert oriented - Labs CBC & Chem 7: 03/13/21 12:06 03/13/21 12:06 Labs: Abnormal Lab Results - Last 24 Hours (Table) 03/13/21 03/13/21 03/13/21 Range/Units 09:34 12:06 12:06 RBC 3.79 L (4.30-5.90) m/uL Hgb 11.4 L (13.0-17.5) gm/dL Hct 37.8 L (39.0-53.0) % MCHC 30.1 L (31.0-37.0) g/dL RDW 18.8 H (11.5-15.5) % Plt Count 135 L (150-450) k/uL Sodium 131 L (137-145) mmol/L Chloride 97 L (98-107) mmol/L Carbon Dioxide 20 L (22-30) mmol/L BUN 25 H (9-20) mg/dL Creatinine 5.47 H (0.66-1.25) mg/dL Glucose 104 H (74-99) mg/dL POC Glucose (mg/dL) 74 L (75-99) mg/dL 03/13/21 03/13/21 Range/Units 16:58 20:33 RBC (4.30-5.90) m/uL Hgb (13.0-17.5) gm/dL Hct (39.0-53.0) % MCHC (31.0-37.0) g/dL RDW (11.5-15.5) % Plt Count (150-450) k/uL Sodium (137-145) mmol/L Chloride (98-107) mmol/L Carbon Dioxide (22-30) mmol/L BUN (9-20) mg/dL Creatinine (0.66-1.25) mg/dL Glucose (74-99) mg/dL POC Glucose (mg/dL) 125 H 112 H (75-99) mg/dL Microbiology - Last 24 Hours (Table) 03/08/21 16:20 Blood Culture - Preliminary Blood No Growth after 120 hours Assessment and Plan Assessment: Impression 1. ESRD on dialysis Monday, access in the right upper arm, with edema of the arm. No cellulitis 2. Admitted with left leg wound underwent BKA on 03/08/2021 3. History of sleep apnea, coronary artery disease. 4. Anemia hemoglobin is 12.1 about target 5. Mild hyponatremia secondary to ESRD 6. Febrile rule out pneumonia rule out urinary tract infection or stump infection Recommendation 1. Chest x-ray to rule out pneumonia 2. Bladder scan to rule out any urinary retention and if there is any urine wasn't 300 mL straight cath and sent for urine culture and urinalysis 3. Antibiotics per primary team
[2021-03-14] MEDS: MIDODRINE 5 MG TAB PO PRN ×2 (08:08→21:15)
[2021-03-14 08:22] LABS: Glucose,Whole Blood 87 mg/dL (75-99)
[2021-03-14 08:22] LABS: Glucose,Whole Blood 69 mg/dL (75-99)
--- NOTE | 2021-03-14 09:15 | XR ---
EXAMINATION TYPE: XR chest 2V DATE OF EXAM: 03/14/2021 COMPARISON: Chest x-ray 12/05/2019 HISTORY: Fever, pneumonia TECHNIQUE: Frontal and lateral views of the chest are obtained. FINDINGS: There is some blunting of the posterior costophrenic angle on the left, patient is post me amanda sternotomy and the heart is enlarged. Interstitium is increased. Left hemidiaphragm is obscured. Central vascularity is prominent. IMPRESSION: Correlate for possible pulmonary venous hypertension and interstitial edema, there is li david left pleural effusion, pneumonia not excluded.
[2021-03-14] MEDS: ASPIRIN 81 MG PO SCH (09:42)
[2021-03-14] MEDS: HEPARIN SODIUM,PORCINE/PF 5,000 UNIT/0.5 ML SYRINGE SQ SCH ×2 (09:42→21:15)
[2021-03-14] MEDS: FUROSEMIDE 20 MG TAB PO SCH (09:42)
[2021-03-14] MEDS: FLUoxetine HCL 20 MG CAP PO SCH (09:42)
[2021-03-14] MEDS: PREGABALIN 50 MG CAP PO SCH ×2 (09:42→21:15)
[2021-03-14] MEDS: SODIUM BICARBONATE TAB 650 MG TAB PO SCH ×2 (09:42→17:17)
[2021-03-14] MEDS: allopurinoL 100 MG TAB PO SCH (09:42)
[2021-03-14] MEDS: SEVELAMER 800 MG TAB PO SCH ×3 (09:43→17:17)
[2021-03-14] MEDS: METOPROLOL SUCCINATE (ER) 25 MG TAB.ER.24H PO SCH (09:43)
[2021-03-14 09:55] LABS: Glucose,Whole Blood 97 mg/dL (75-99)
[2021-03-14 11:47] LABS: Glucose,Whole Blood 122 mg/dL (75-99)
--- NOTE | 2021-03-14 12:17 | P.PN ---
Subjective Progress Note Date: 03/14/21 Physical pleasant 66-year-old gentleman who follows in the office with Dr. Gibbs. He has a history of chronic kidney disease on hemodialysis, hypertension, hyperlipidemia, diabetes, nicotine dependence, and coronary artery disease with previous CABG 5 in 2011. He presented for nonhealing wound on the left lower extremity. Subsequently underwent left BKA by Dr. Macias. He is postop day #2. Echocardiogram completed this admission shows ejection fraction 30-35% which is stable since April 2020 with mild aortic stenosis, mild mitral regurgitation and mild tricuspid regurgitation. From a cardiac standpoint he's relatively stable. Complaining of pain at the site of his coccyx ulcer. Blood pressure has been on the low side. He is currently on metoprolol succinate 25 mg daily he is also on midodrine for blood pressure support. He is scheduled to undergo hemodialysis this morning. 03/14/2021 Seen and examined this morning lasting comfortably in bed. Does complain of some mild shortness of breath and congested cough per family is productive but patient is swallowing the sputum. She underwent hemodialysis yesterday with 2 L taken off. Chest x-ray this morning showed correlate for possible pulmonary venous hypertension and interstitial edema, there is likely left pleural effusion, pneumonia cannot be excluded. Patient's temperature this morning 100.2F with subsequent temp of 99.4. He remains hypotensive. Oxygen saturation 95% on 3 L via nasal cannula earlier this morning oxygen was increased to 6 L the time of my examination he is at 3 L nasal cannula. Objective - Vital Signs Vital signs: Vital Signs Temp 99.4 F 03/14/21 07:53 Pulse 88 03/14/21 08:29 Resp 20 03/14/21 08:29 BP 96/61 03/14/21 08:29 Pulse Ox 95 03/14/21 08:29 Intake & Output 03/13/21 03/14/21 03/14/21 18:59 06:59 18:59 Intake Total 300 250 Output Total 2300 0 0 Balance -2000 0 250 Intake: Oral 250 Hemodialysis 300 Output: Urine 0 0 Hemodialysis 2300 Other: Voiding Method CAPD CAPD # Voids 0 0 0 # Bowel Movements 0 - Exam PHYSICAL EXAMINATION: HEENT: Head is atraumatic, normocephalic. Pupils equal, round. Neck is supple. There is no elevated jugular venous pressure. HEART EXAMINATION: Heart sounds regular, S1 and S2 normal. With a systolic murmur noted. CHEST EXAMINATION: Lungs reveal expiratory wheezing throughout. No chest wall tenderness is noted on palpation or with deep breathing. ABDOMEN: Soft, nontender. Bowel sounds are heard. No organomegaly noted. EXTREMITIES: Left BKA noted. No right lower extremity edema. Right upper arm AV fistula with edema noted. NEUROLOGIC patient is awake, alert and oriented x3. Mild confusion noted. . - Labs CBC & Chem 7: 03/13/21 12:06 03/13/21 12:06 Labs: Abnormal Lab Results - Last 24 Hours (Table) 03/13/21 03/13/21 03/13/21 Range/Units 12:06 12:06 16:58 RBC 3.79 L (4.30-5.90) m/uL Hgb 11.4 L (13.0-17.5) gm/dL Hct 37.8 L (39.0-53.0) % MCHC 30.1 L (31.0-37.0) g/dL RDW 18.8 H (11.5-15.5) % Plt Count 135 L (150-450) k/uL Sodium 131 L (137-145) mmol/L Chloride 97 L (98-107) mmol/L Carbon Dioxide 20 L (22-30) mmol/L BUN 25 H (9-20) mg/dL Creatinine 5.47 H (0.66-1.25) mg/dL Glucose 104 H (74-99) mg/dL POC Glucose (mg/dL) 125 H (75-99) mg/dL 03/13/21 03/14/21 03/14/21 Range/Units 20:33 08:05 11:45 RBC (4.30-5.90) m/uL Hgb (13.0-17.5) gm/dL Hct (39.0-53.0) % MCHC (31.0-37.0) g/dL RDW (11.5-15.5) % Plt Count (150-450) k/uL Sodium (137-145) mmol/L Chloride (98-107) mmol/L Carbon Dioxide (22-30) mmol/L BUN (9-20) mg/dL Creatinine (0.66-1.25) mg/dL Glucose (74-99) mg/dL POC Glucose (mg/dL) 112 H 69 L 122 H (75-99) mg/dL Microbiology - Last 24 Hours (Table) 03/08/21 16:20 Blood Culture - Preliminary Blood No Growth after 120 hours Assessment and Plan Assessment: #1 Nonhealing left foot wound, status post left BKA #2 peripheral artery disease status post left fem-tib artery bypass September 2020 #3 ischemic cardiomyopathy #4 CAD with prior CABG 5 #5 chronic kidney disease on hemodialysis #6 hypertension #7 hyperlipidemia #8 diabetes #9 mild aortic stenosis Plan: From cardiology's perspective medications were reviewed and we will continue the same. We will continue to follow the patient and provide further recommendations accordingly. DIGITAL INTERN note has been reviewed, I agree with a documented findings and plan of care. Patient was seen and examined.
[2021-03-14] MEDS: HYDROcodone/APAP 7.5-325MG 1 EACH TAB PO PRN (12:51)
--- NOTE | 2021-03-14 13:09 | P.PN ---
Subjective Progress Note Date: 03/14/21 Hospital Course: Patient is a 66-year-old male for history of end-stage renal disease on hemodialysis, diabetes mellitus type 2 on insulin, hypertension, coronary artery disease, and chronic left lower extremity wound who initially presented to the ER for worsening of his wound. He had undergone a left foot debridement with wound VAC placement requiring hospitalization from 02/19 through 02/27 and completed a dose of oral antibiotics. He was seen at the wound care clinic on 03/08 were felt that his wound was reinfected and he was told to proceed to the emergency department. Patient was seen and evaluated by wound care, Dr. Larios, and Dr. Macias. He ultimately underwent left-sided BKA on 03/11/[address] Macias. Echocardiogram-ejection fraction 30-35%, elevated right end-diastolic pressure, moderate valvular disease Lower extremity [id number] femoral tibial bypass graft noted with 50% stenosis, with occlusion at the distal femoral level with free constitution distally, popliteal artery thrombosis, Arteries opacify from collateral flow Physical Examination: Patient was seen and fully evaluated at bedside this morning. He again had an episode of hypoglycemia and confusion this morning which resolved after oral intake. Patient reports having a poor appetite and oral intake is encouraged. Blood glucose checks changed to every 4 hours. We will discontinue D5 infusion secondary to high risk of fluid overload and monitor blood glucose levels closely. Continue glycemic protocol with D5 as needed for hypoglycemia. Patient reports pain from BKA is controlled and denies having phantom limb pain today. He underwent session of dialysis yesterday afternoon. Patient denies having any further complaints at this time including headache, lightheadedness, dizziness, chest pain, palpitations, shortness of breath, nausea, vomiting, diarrhea, or any other concerns. General: non toxic, no distress, appears at stated age Derm: warm, dry, bruising right upper arm near fistula voice over announcer: atraumatic, normocephalic, symmetric Eyes: EOMI, no lid lag, anicteric sclera Mouth: no lip lesion, mucus membranes moist Cardiovascular: S1S2 reg, Systolic Murmur, positive posterior tibial pulse RLE. AV fistula RUE bruit and thrill in tact. Lungs: Decreased breath sounds bilateral, no rhonchi, no rales , no accessory muscle use Abdominal: soft, nontender to palpation, no guarding, no appreciable organomegaly Ext: no gross muscle atrophy, no edema right lower extremity, no contractures, Left BKA, Post-surgical dressing in place. Neuro: CN II-XI grossly intact, no focal neuro deficits Psych: Awake, oriented, appropriate affect Assessment and Plan of Care: Status post Left BKA on 03/11/21 secondary to Nonhealing left foot ulcer with infection Peripheral arterial disease -Status post BKA on the left on 03/11/[address] Macias -Vascular Surgery following, appreciate further recommendations. -ID following, appreciate further recommendations -Continue IV antibiotics with cefepime and daptomycin -Increased Lyrica to 50 mg BID -Blood cultures showing no growth 120 hours. Insulin-dependent diabetes mellitus with recent hypoglycemia -Patient continues to have intermittent episodes of hypoglycemia. -We will discontinue D5 infusion secondary to high risk of fluid overload and monitor blood glucose levels more closely, Q4 hours. -Continue glycemic protocol with D5 as needed for hypoglycemia. -Encourage pt's oral intake. End-stage renal disease on hemodialysis Monday, , and Monday -Nephrology Following, ordered for patient to continue dialysis Tuesdays, Mon, and Monday. -Continue Sodium bicarb and Renvela -On Midodrine for chronic hypotension Hyponatremia secondary to end-stage renal disease and daily diuretic use, stable -Consider for fluid management -Follow BMP -Continue D5 to 50mL per hour. -Monitor closely with Lasix and Prozac Systolic congestive heart failure with ejection fraction 30-35%, ischemic, chronic and currently compensated Coronary artery disease status post CABG 5 Hypertension Dyslipidemia Aortic stenosis -Cardiology following, appreciate recommendations. -Continue with aspirin, Lipitor -Lasix -Metoprolol Lactic acidosis, resolved DVT prophylaxis: Heparin Discussed with: Patient and RN Anticipated discharge: clinical course to determine Anticipated discharge place: [facility] A total of 45 minutes was spent on the care of this complex patient more than 50% of the time was spent in counseling and care Objective - Vital Signs Vital signs: Vital Signs Temp 100.2 F H 03/14/21 05:52 Pulse 91 03/14/21 05:52 Resp 15 03/13/21 19:38 BP 97/59 03/14/21 05:52 Pulse Ox 92 L 03/14/21 07:32 Intake & Output 03/13/21 03/14/21 03/14/21 18:59 06:59 18:59 Intake Total 300 Output Total 2300 0 Balance -2000 0 Intake: Hemodialysis 300 Output: Urine 0 Hemodialysis 2300 Other: Voiding Method CAPD # Voids 0 0 # Bowel Movements 0 - Labs CBC & Chem 7: 03/13/21 12:06 03/13/21 12:06 Labs: Abnormal Lab Results - Last 24 Hours (Table) 03/13/21 03/13/21 03/13/21 Range/Units 09:34 12:06 12:06 RBC 3.79 L (4.30-5.90) m/uL Hgb 11.4 L (13.0-17.5) gm/dL Hct 37.8 L (39.0-53.0) % MCHC 30.1 L (31.0-37.0) g/dL RDW 18.8 H (11.5-15.5) % Plt Count 135 L (150-450) k/uL Sodium 131 L (137-145) mmol/L Chloride 97 L (98-107) mmol/L Carbon Dioxide 20 L (22-30) mmol/L BUN 25 H (9-20) mg/dL Creatinine 5.47 H (0.66-1.25) mg/dL Glucose 104 H (74-99) mg/dL POC Glucose (mg/dL) 74 L (75-99) mg/dL 03/13/21 03/13/21 Range/Units 16:58 20:33 RBC (4.30-5.90) m/uL Hgb (13.0-17.5) gm/dL Hct (39.0-53.0) % MCHC (31.0-37.0) g/dL RDW (11.5-15.5) % Plt Count (150-450) k/uL Sodium (137-145) mmol/L Chloride (98-107) mmol/L Carbon Dioxide (22-30) mmol/L BUN (9-20) mg/dL Creatinine (0.66-1.25) mg/dL Glucose (74-99) mg/dL POC Glucose (mg/dL) 125 H 112 H (75-99) mg/dL Microbiology - Last 24 Hours (Table) 03/08/21 16:20 Blood Culture - Preliminary Blood No Growth after 120 hours
[2021-03-14] MEDS: MORPHINE SULFATE 4 MG/ML SYRINGE IV PRN (14:54)
[2021-03-14 16:17] LABS: Glucose,Whole Blood 124 mg/dL (75-99)
[2021-03-14 19:59] LABS: Glucose,Whole Blood 153 mg/dL (75-99)
[2021-03-14] MEDS: ATORVASTATIN 80 MG TAB PO SCH (21:15)
[2021-03-14] MEDS: CEFEPIME 1 GM in SODIUM CHLORIDE 0.9% 50 ML IVPB SCH (22:03)
[2021-03-15 00:07] LABS: Glucose,Whole Blood 110 mg/dL (75-99)
[2021-03-15] MEDS: metroNIDAZOLE 500 MG TAB PO SCH ×2 (00:15→10:45)
--- NOTE | 2021-03-15 00:40 | PN ---
PROGRESS NOTE DATE OF SERVICE: 03/14/2021 REASON FOR FOLLOWUP: Left diabetic foot infection with underlying osteomyelitis INTERVAL HISTORY: The patient is afebrile. The patient is breathing comfortably. The patient is complaining of some chest pain and cough. Not bringing up any sputum, though. No abdominal pain and no diarrhea. PHYSICAL EXAMINATION: Blood pressure is 97/58, pulse of 73, temperature 98.5. He is 96% on 5 L nasal cannula. General description is an elderly male lying in bed in no distress. RESPIRATORY SYSTEM: Unlabored breathing. Clear to auscultation anteriorly. HEART: S1, S2. Regular rate and rhythm. ABDOMEN: Soft. No tenderness. Left BKA stump is currently dressed. No drainage on the dressing. LABS: No new labs been obtained today. 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 Patient on antibiotics. Antibiotics will be discontinued and patient monitored closely off antibiotic therapy. Continue supportive care. MMODL / IJN: [id number] /
[2021-03-15 03:55] LABS: Glucose,Whole Blood 103 mg/dL (75-99)
[2021-03-15] MEDS: MIDODRINE 5 MG TAB PO PRN (04:52)
[2021-03-15 07:33] LABS: Glucose,Whole Blood 102 mg/dL (75-99)
[2021-03-15 08:43] LABS: HCT 35.1 % (39.6-50.0); HGB 10.7 g/dL (13.0-17.0); MCH 29.4 pg (27.0-32.0); MCHC 30.5 g/dL (32.0-37.0); MCV 96.4 fL (80.0-97.0); Mean Platelet Volume 11.8 fL (9.5-12.2); Platelet Count 146 X 10*3/uL (140-440); RBC 3.64 X 10*6/uL (4.40-5.60); RDW 21.1 % (11.5-14.5); WBC 11.18 X 10*3/uL (4.50-10.00)
[2021-03-15] MEDS: METOPROLOL SUCCINATE (ER) 25 MG TAB.ER.24H PO SCH (08:46)
[2021-03-15 09:05] LABS: Magnesium 2.1 mg/dL (1.5-2.4)
[2021-03-15 09:15] LABS: Glucose,Whole Blood 98 mg/dL (75-99)
[2021-03-15 09:32] LABS: Glucose,Whole Blood 100 mg/dL (75-99)
--- NOTE | 2021-03-15 10:08 | CT ---
EXAMINATION TYPE: CT brain wo con DATE OF EXAM: 03/15/2021 COMPARISON: 05/15/2016 HISTORY: 66-year-old male Weakness and confusion. Prior CT head states a history of brain tumor remov al. TECHNIQUE: Examination was done in axial plane without intravenous contrast. Coronal and sagittal r econstructions performed. CT DLP: 1097.8 mGycm Automated exposure control for dose reduction was used. FINDINGS: Redemonstrated bifrontal craniotomy flap. Underlying bifrontal encephalomalacia. Atherosclerotic calc ifications within the bilateral carotid siphons, proximal V4 segment left vertebral artery, as well a s the mid to upper basilar artery. No evidence for acute intracranial hemorrhage, mass effect, midline shift, or extra-axial fluid colle ction. No hydrocephalus. No effacement of cerebral sulci or basal subarachnoid cisterns. Jason-white m atter differentiation is maintained. However, there is increasing soft tissue fullness along the midline floor of the anterior cranial fos sa, coronal image 21 and sagittal image 39. There is thickening and irregular appearance to the floor of the anterior cranial fossae here and some increasing soft tissue fullness in the upper nasal cavi ty. Continued opacification left mastoid air cells extending into the left epitympanum. Complete opacific ation left ethmoid air cells, left sphenoid sinus, and left frontal sinus, new from 05/15/2016. There i s some soft tissue fullness in the upper nasal cavity as noted above. IMPRESSION: 1. Similar bifrontal craniotomy flaps with underlying bifrontal encephalomalacia. No acute intracrani al hemorrhage or midline shift. 2. However, there is increasing soft tissue density along the midline floor of anterior cranial fossa , underlying thickening and irregularity to the bony calvarial floor here, and contiguous new soft ti ssue fullness in the upper nasal cavity (coronal image 21 and sagittal image 39). Consider ENT referr al to exclude a mass here (such as but not limited to plasmacytoma or lymphoma). Alternatively, there could be recurrent neoplasm given patient's history of prior brain tumor removal. Correlate with pre vious pathology.
[2021-03-15 10:42] LABS: ALT 16 U/L (4-49); AST 79 U/L (17-59); African American GFR (CKD) 11 (>60 ml/min/1.73 sqM); Albumin 2.4 g/dL (3.5-5.0); Albumin/Globulin Ratio 0.8; Alkaline Phosphatase 204 U/L (38-126); Anion Gap 13 mmol/L; Blood Urea Nitrogen 27 mg/dL (9-20); Calcium 9.1 mg/dL (8.4-10.2); Carbon Dioxide 19 mmol/L (22-30); Chloride 98 mmol/L (98-107); Glucose 97 mg/dL (74-99); Non-African American GFR(CKD) 10 (>60 ml/min/1.73 sqM); Potassium 4.2 mmol/L (3.5-5.1); Sodium 130 mmol/L (137-145); Total Bilirubin 3.5 mg/dL (0.2-1.3); Total Protein 5.4 g/dL (6.3-8.2)
[2021-03-15] MEDS: SEVELAMER 800 MG TAB PO SCH ×2 (10:45→13:26)
[2021-03-15] MEDS: FUROSEMIDE 20 MG TAB PO SCH (10:45)
[2021-03-15] MEDS: allopurinoL 100 MG TAB PO SCH (10:45)
[2021-03-15] MEDS: FLUoxetine HCL 20 MG CAP PO SCH (10:45)
[2021-03-15] MEDS: SODIUM BICARBONATE TAB 650 MG TAB PO SCH (10:45)
[2021-03-15] MEDS: ASPIRIN 81 MG PO SCH (10:45)
[2021-03-15] MEDS: PREGABALIN 50 MG CAP PO SCH (10:45)
[2021-03-15] MEDS: DEXTROSE 50% SYRINGE 50 ML IVP ONE (10:46)
--- NOTE | 2021-03-15 10:50 | CT ---
EXAMINATION TYPE: CODE STROKE: CTA head neck DATE OF EXAM: 03/15/2021 COMPARISON: Correlation CT brain same day HISTORY: 66-year-old male altered mental status, confusion, upper extremity weakness TECHNIQUE: Contiguous axial scanning of the head and neck performed with IV Contrast, patient injecte d with 75 mL of Isovue 370. Coronal/sagittal MIP reconstructions performed. 3-D reconstructions gener ated on a dedicated independent workstation. CT DLP: Not reported Automated exposure control for dose reduction was used. FINDINGS: NECK: Prominent motion artifacts are present. Enlarged main pulmonary arteries measuring up to 2.9 cm. There is a moderate to large left pleural ef fusion and small right pleural effusion with underlying atelectasis. Post-CABG changes are noted. Heterogeneous thyroid gland. Enhancing nodule posteriorly in the right thyroid lobe measuring 1.4 cm. Dedicated thyroid ultrasound could further evaluate. Conventional arch vessel branching anatomy. Mild atherosclerotic narrowing secondary calcifications throughout the proximal left subclavian arter y Unable to clearly identify the takeoff of the right vertebral artery. Within the right foramen transv ersarium, a diminutive vessel is visualized. Possible moderate atherosclerotic narrowing at the origin of the left vertebral artery. The left vert ebral artery otherwise remains patent throughout its course. Possible mild atherosclerotic narrowing at both the proximal right common carotid artery and proximal right subclavian artery. Otherwise, the right common carotid artery remains patent. There is severe focal 80% stenosis at the origin of the right internal carotid artery by NASCET crite reji. Possible mild atherosclerotic narrowing proximal left common carotid artery. Remainder of the left common carotid artery is patent. Moderate atherosclerotic change at the left carotid bifurcation with moderate, just over 50% stenosis in the upper left carotid bulb. Remainder of the left ICA remains patent. HEAD: V4 segment right vertebral artery is not seen. The hypoplastic vessel may terminate as a PICA branch. Moderate irregular atherosclerotic narrowing proximal to mid V4 segment left vertebral artery. Mild atherosclerotic calcifications upper basilar artery. Patent bilateral posterior communicating arteries are visualized. Remainder of the posterior circulat ion appears patent. Moderate atherosclerotic calcifications throughout the bilateral carotid siphons. There is moderate f ocal atherosclerotic narrowing involving the clinoid and supraclinoid right ICA as well as the suprac linoid left ICA. Reference axial images 58, 64, and 65, series 408. Hypoplastic A1 segment right anterior cerebral artery. There is mild atherosclerotic irregularity thr oughout the anterior circulation. However, the anterior circulation otherwise remains patent. No aneu rysmal changes seen. Prominent caliber and opacification of the bilateral superior ophthalmic veins. IMPRESSION: NECK: 1. MODERATE TO LARGE LEFT AND SMALL RIGHT PLEURAL EFFUSIONS WITH ADJACENT ATELECTASIS. CARDIOMEGALY, PULMONARY ARTERIAL HYPERTENSION, AND POST-CABG CHANGES. CORRELATE FOR POSSIBLE CHF. 2. HETEROGENEOUS THYROID GLAND. A 1.4 CM ENHANCING NODULE ON THE RIGHT. OUTPATIENT THYROID ULTRASOUND EVALUATION RECOMMENDED. 3. RIGHT VERTEBRAL ARTERY TAKEOFF IS NOT SEEN. A SEVERELY DIMINUTIVE VESSEL IS NOTED WITHIN THE RIGHT FORAMEN TRANSVERSARIUM. 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 POSSIBLE MODERA TE ATHEROSCLEROTIC NARROWING AT THE ORIGIN OF THE LEFT VERTEBRAL ARTERY. 4. MILD ATHEROSCLEROTIC NARROWING PROXIMAL RIGHT COMMON CAROTID ARTERY FOLLOWED BY A SEVERE FOCAL 80% STENOSIS AT THE ORIGIN OF THE RIGHT ICA. 5. MILD ATHEROSCLEROTIC NARROWING PROXIMAL LEFT COMMON CAROTID ARTERY FOLLOWED BY A MODERATE, JUST OV ER 50% STENOSIS UPPER LEFT CAROTID BULB. HEAD: 6. MODERATE FOCAL ATHEROSCLEROTIC STENOSES CLINOID AND SUPRACLINOID RIGHT ICA WELL THE SUPRACLI NOID LEFT ICA. 7. THE V4 SEGMENT RIGHT VERTEBRAL ARTERY IS NOT SEEN. THE HYPOPLASTIC VESSEL MAY TERMINATE A PICA BRANCH. MODERATE ATHEROSCLEROTIC STENOSIS PROXIMAL TO MID V4 SEGMENT LEFT VERTEBRAL ARTERY. 8. ENLARGED CALIBER AND PROMINENT OPACIFICATION OF THE BILATERAL SUPERIOR OPHTHALMIC VEINS. THE LACK OF SIGNIFICANT ENHANCEMENT WITHIN THE CAVERNOUS SINUSES ARGUES AGAINST A CAROTID-CAVERNOUS FISTULA. S UPERIOR OPHTHALMIC VENOUS ENGORGEMENT MAY BE DUE TO ELEVATED INTRACRANIAL PRESSURES. REASSESS AT FOLL OW-UP. 10. SEVERE LEFT-SIDED PARANASAL SINUS DISEASE POSSIBLY SECONDARY TO OBSTRUCTION CAUSED BY THE SUSPECT ED MASS ALONG THE MIDLINE FLOOR OF THE ANTERIOR CRANIAL FOSSA.
[2021-03-15] MEDS ORDERED: DEXTROSE 50% SYRINGE 50 ML IVP STA (10:57)
--- NOTE | 2021-03-15 10:58 | US ---
EXAMINATION TYPE: US venous doppler duplex UE RT DATE OF EXAM: 03/15/2021 COMPARISON: NONE CLINICAL HISTORY: right upper extremity swelling, cold extremity. Fistula SIDE PERFORMED: Right Basilic not seen. Fistula patent. Plaque seen in distal Brach Artery in area of connection. Right Arm: DVT seen in Right IJV/ INN V junction IMPRESSION: 1. Exam positive for DVT in the right internal jugular vein and innominate vein junction. 2. There appears to be patent fistula.
[2021-03-15] MEDS: HEPARIN SODIUM,PORCINE/PF 5,000 UNIT/0.5 ML SYRINGE SQ SCH (11:01)
[2021-03-15 11:05] LABS: Glucose,Whole Blood 96 mg/dL (75-99)
[2021-03-15] MEDS ORDERED: DEXTROSE 5%-0.9% NACL 1,000 ML IV SCH (11:15)
[2021-03-15 11:20] LABS: African American GFR (CKD) 10.1 (60.0-200.0); Anion Gap 15.1 mmol/L (4.00-12.00); BUN/Creat Ratio 4.04 Ratio (12.00-20.00); Calcium 9.4 mg/dL (8.7-10.3); Carbon Dioxide 22.1 mmol/L (21.6-31.8); Non-African American GFR(CKD) 8.7 (60.0-200.0); Potassium 4.2 mmol/L (3.5-5.5)
[2021-03-15 11:45] LABS: Glucose,Whole Blood 136 mg/dL (75-99)
--- NOTE | 2021-03-15 11:46 | P.PN ---
Subjective Progress Note Date: 03/15/21 In to see the patient for follow-up on left below the knee amputation. Patient is postop day #4. When entering the room the patient was lethargic, he was arousable. Seems somewhat confused however, was able to answer simple questions such as well. He was, he reported "[facility]"however he had slurred speech. He was able to follow simple commands such as squeezing my hands, with right-sided weakness. Also noted was right upper extremity swelling, cold to the touch with pallor. He was able to stick out his tongue which was midline initially when asked to. The patient's nurse was now at the bedside, patient continued to have declining mental status changes. The nurse states the patient has had similar episodes last 2 mornings, where after he was given some juice he was more alert and appropriate. The nurse tried to give him some juice and asked him to drink through a straw which she was unable to. She tried to give him a sip from a cup which he was coughing and unable to follow commands. The nurse then called a code stroke. He was noted to be hypotensive, blood sugar wa s 98. IV fluids were started. Code stroke was initiated. Patient went down for a CT of the brain, CT a head and neck also ordered. Objective - Vital Signs Vital signs: Vital Signs Temp 97.5 F L 03/15/21 02:00 Pulse 84 03/15/21 04:51 Resp 18 03/15/21 02:00 BP 83/47 03/15/21 04:51 Pulse Ox 92 L 03/15/21 02:00 Intake & Output 03/14/21 03/15/21 03/15/21 18:59 06:59 18:59 Intake Total 250 400 Output Total 0 0 Balance 250 400 Intake: Oral 250 400 Output: Urine 0 0 Other: Voiding Method CAPD CAPD # Voids 0 0 # Bowel Movements 0 - Exam General appearance: The patient is drowsy, oriented to self and place, appears confused. HET: Head is normocephalic and atraumatic. Neck: Supple without lymphadenopathy. Trachea midline. Abdomen: Soft, nontender, nondistended. Extremities: Left lower extremity BKA with dressing clean dry and intact and immobilizer in place. Right upper extremity swelling, palpable thrill in graft, hand cool to the touch, and pale. Palpable radial pulse. Neurological: Altered mental status changes noted. He was drowsy but easily arousable, and oriented to self and place. Patient initially was able to follow simple commands, however he progressively got more altered and unable to follow commands. He had initially right upper extremity weakness and bilateral upper extremity weakness. - Labs CBC & Chem 7: 03/15/21 06:10 03/15/21 09:58 Labs: Abnormal Lab Results - Last 24 Hours (Table) 03/14/21 03/14/21 03/14/21 Range/Units 11:45 16:16 19:57 WBC (4.50-10.00) X 10*3/uL RBC (4.40-5.60) X 10*6/uL Hgb (13.0-17.0) g/dL Hct (39.6-50.0) % MCHC (32.0-37.0) g/dL RDW (11.5-14.5) % POC Glucose (mg/dL) 122 H 124 H 153 H (75-99) mg/dL 03/15/21 03/15/21 03/15/21 Range/Units 00:05 03:52 06:10 WBC 11.18 H (4.50-10.00) X 10*3/uL RBC 3.64 L (4.40-5.60) X 10*6/uL Hgb 10.7 L (13.0-17.0) g/dL Hct 35.1 L (39.6-50.0) % MCHC 30.5 L (32.0-37.0) g/dL RDW 21.1 H (11.5-14.5) % POC Glucose (mg/dL) 110 H 103 H (75-99) mg/dL 03/15/21 Range/Units 07:02 WBC (4.50-10.00) X 10*3/uL RBC (4.40-5.60) X 10*6/uL Hgb (13.0-17.0) g/dL Hct (39.6-50.0) % MCHC (32.0-37.0) g/dL RDW (11.5-14.5) % POC Glucose (mg/dL) 102 H (75-99) mg/dL Microbiology - Last 24 Hours (Table) 03/08/21 16:20 Blood Culture - Final Blood No Growth after 144 hours Assessment and Plan Assessment: 1. Postop day #4 left [id number] amputation 2. Altered mental status changes 3. History of severe peripheral arterial disease 4. End-stage renal disease on hemodialysis 5. Diabetes mellitus Plan: 1. Right upper extremity venous Doppler ordered 2. Code stroke initiated 3. CT angiogram head and neck ordered 4. Rigid dressing and stump ekg monitor tech ordered 5. Continue physical therapy 6. Further recommendations forthcoming The impression and plan of care has been dictated as directed. Dr. Macias I performed a history and examination of this patient, discussed the same with the dictator. I agree with the dictator's note ,documented as a scribe. Any additional findings or plans will be noted.
[2021-03-15] MEDS ORDERED: CLOPIDOGREL 75 MG TAB PO STA ×2 (12:25→12:28)
[2021-03-15] MEDS ORDERED: HEPARIN SODIUM 1,000 UN/ML (10ML VL) IV ONE (13:07)
[2021-03-15] MEDS ORDERED: HEPARIN SODIUM 1,000 UN/ML (10ML VL) IV PRN (13:07)
--- NOTE | 2021-03-15 13:15 | US ---
EXAMINATION TYPE: US carotid duplex BILAT DATE OF EXAM: 03/15/2021 COMPARISON: NONE CLINICAL HISTORY: altered mental status changes, dysphasia. EXAM MEASUREMENTS: RIGHT: Peak Systolic Velocity (PSV) cm/sec ----- Right CCA: 88.7 ----- Right ICA: 241.3 ----- Right ECA: 137.1 ICA/CCA ratio: 2.7 RIGHT: End Diastole cm/sec ----- Right CCA: 102.7 ----- Right ICA: 155.5 ----- Right ECA: 84.5 LEFT: Peak Systolic Velocity (PSV) cm/sec ----- Left CCA: 23.6 ----- Left ICA: 39.2 ----- Left ECA: 5.3 ICA/CCA ratio: 1.5 LEFT: End Diastole cm/sec ----- Left CCA: 23.6 ----- Left ICA: 39.2 ----- Left ECA: 5.3 VERTEBRALS (direction of flow): Right Vertebral: Antegrade Left Vertebral: Antegrade Rhythm: Normal Severe technical limitations due to patient being non responsive with large thick neck. Severe plaque with mild velocity increase on right. This could be underestimated due to technical dif ficulties of test. IMPRESSION: 1. Severe bilateral atherosclerotic plaque. There are significant limitations in exam as noted above. There is at least moderate stenosis measuring 50-69% within the right internal carotid artery. Given the limitation exam Consider CTA follow-up for more accurate assessment. Criteria for Assigning % of Stenosis / Diameter reduction (Estimation based on the indirect measurements of the internal carotid artery velocities (ICA PSV). 1. Normal (no stenosis)=ICA PSV < 125 cm/s: ratio < 2.0: ICA EDV<40 cm/s. 2. Less than 50% stenosis=ICA PSV < 125 cm/s: ratio < 2.0: ICA EDV<40 cm/s. 3. 50 to 69% stenosis=ICA PSV of 125 to 230 cm/s: ration 2.0 ? 4.0: ICA EDV 40-100 cm/s. 4. Greater than 70% stenosis to near occlusion= ICA PSV > 230 cm/s: ratio > 4.0: ICA EDV > 100 cm/s. 5. Near occlusion= ICA PSV velocities may be low or undetectable: variable ratio and ICA EDV. 6. Total occlusion=unable to detect flow.
--- NOTE | 2021-03-15 13:20 | P.PN ---
Subjective Progress Note Date: 03/15/21 Principal diagnosis: Leg gangrene Patient was lethargic and hyptensive this am. The right arm was noted to be swollen as well..He was able to follow simple commands but not as briskly as before. The right side was weaker compared to the left. SBP in the 70s-80s. No fevers or chills. Objective - Vital Signs Vital signs: Vital Signs Temp 99.2 F 03/15/21 10:00 Pulse 87 03/15/21 10:00 Resp 16 03/15/21 10:00 BP 97/62 03/15/21 10:00 Pulse Ox 94 L 03/15/21 10:00 Intake & Output 03/14/21 03/15/21 03/15/21 18:59 06:59 18:59 Intake Total 250 400 Output Total 0 0 Balance 250 400 Intake: Oral 250 400 Output: Urine 0 0 Other: Voiding Method CAPD CAPD # Voids 0 0 # Bowel Movements 0 - Exam General: Lethargic, non toxic, no distress, appears at stated age Derm: warm, dry, bruising right upper arm near fistula site auditor: atraumatic, normocephalic, symmetric Eyes: EOMI, no lid lag, anicteric sclera Mouth: no lip lesion, mucus membranes moist Cardiovascular: S1S2 reg, Systolic Murmur, positive posterior tibial pulse RLE. AV fistula RUE bruit and thrill in tact. Lungs: Decreased breath sounds bilateral, no rhonchi, no rales , no accessory muscle use Abdominal: soft, nontender to palpation, no guarding, no appreciable organomegaly Ext: Right arm swelling, no gross muscle atrophy, no edema right lower extremity, no contractures, Left BKA, Post-surgical dressing in place. Neuro: Right side weaker, able to follow simple commands. CN II-XI grossly intact, no focal neuro deficits - Labs CBC & Chem 7: 03/15/21 06:10 03/15/21 09:58 Labs: Abnormal Lab Results - Last 24 Hours (Table) 03/14/21 03/14/21 03/15/21 Range/Units 16:16 19:57 00:05 WBC (4.50-10.00) X 10*3/uL RBC (4.40-5.60) X 10*6/uL Hgb (13.0-17.0) g/dL Hct (39.6-50.0) % MCHC (32.0-37.0) g/dL RDW (11.5-14.5) % Sodium (135-145) mmol/L Chloride (96-109) mmol/L Carbon Dioxide (22-30) mmol/L Anion Gap (4.00-12.00) mmol/L BUN (9-20) mg/dL Creatinine (0.6-1.5) mg/dL Est GFR (CKD-EPI)AfAm (60.0-200.0) Est GFR (CKD-EPI)NonAf (60.0-200.0) BUN/Creatinine Ratio (12.00-20.00) Ratio POC Glucose (mg/dL) 124 H 153 H 110 H (75-99) mg/dL Total Bilirubin (0.2-1.3) mg/dL AST (17-59) U/L Alkaline Phosphatase (38-126) U/L Total Protein (6.3-8.2) g/dL Albumin (3.5-5.0) g/dL 03/15/21 03/15/21 03/15/21 Range/Units 03:52 06:10 06:10 WBC 11.18 H (4.50-10.00) X 10*3/uL RBC 3.64 L (4.40-5.60) X 10*6/uL Hgb 10.7 L (13.0-17.0) g/dL Hct 35.1 L (39.6-50.0) % MCHC 30.5 L (32.0-37.0) g/dL RDW 21.1 H (11.5-14.5) % Sodium 133 L (135-145) mmol/L Chloride 95 L (96-109) mmol/L Carbon Dioxide (22-30) mmol/L Anion Gap 15.10 H (4.00-12.00) mmol/L BUN (9-20) mg/dL Creatinine 6.2 H (0.6-1.5) mg/dL Est GFR (CKD-EPI)AfAm 10.1 L (60.0-200.0) Est GFR (CKD-EPI)NonAf 8.7 L (60.0-200.0) BUN/Creatinine Ratio 4.04 L (12.00-20.00) Ratio POC Glucose (mg/dL) 103 H (75-99) mg/dL Total Bilirubin (0.2-1.3) mg/dL AST (17-59) U/L Alkaline Phosphatase (38-126) U/L Total Protein (6.3-8.2) g/dL Albumin (3.5-5.0) g/dL 03/15/21 03/15/21 03/15/21 Range/Units 07:02 09:21 09:58 WBC (4.50-10.00) X 10*3/uL RBC (4.40-5.60) X 10*6/uL Hgb (13.0-17.0) g/dL Hct (39.6-50.0) % MCHC (32.0-37.0) g/dL RDW (11.5-14.5) % Sodium 130 L (135-145) mmol/L Chloride (96-109) mmol/L Carbon Dioxide 19 L (22-30) mmol/L Anion Gap (4.00-12.00) mmol/L BUN 27 H (9-20) mg/dL Creatinine 5.72 H (0.6-1.5) mg/dL Est GFR (CKD-EPI)AfAm (60.0-200.0) Est GFR (CKD-EPI)NonAf (60.0-200.0) BUN/Creatinine Ratio (12.00-20.00) Ratio POC Glucose (mg/dL) 102 H 100 H (75-99) mg/dL Total Bilirubin 3.5 H (0.2-1.3) mg/dL AST 79 H (17-59) U/L Alkaline Phosphatase 204 H (38-126) U/L Total Protein 5.4 L (6.3-8.2) g/dL Albumin 2.4 L (3.5-5.0) g/dL 03/15/21 Range/Units 11:43 WBC (4.50-10.00) X 10*3/uL RBC (4.40-5.60) X 10*6/uL Hgb (13.0-17.0) g/dL Hct (39.6-50.0) % MCHC (32.0-37.0) g/dL RDW (11.5-14.5) % Sodium (135-145) mmol/L Chloride (96-109) mmol/L Carbon Dioxide (22-30) mmol/L Anion Gap (4.00-12.00) mmol/L BUN (9-20) mg/dL Creatinine (0.6-1.5) mg/dL Est GFR (CKD-EPI)AfAm (60.0-200.0) Est GFR (CKD-EPI)NonAf (60.0-200.0) BUN/Creatinine Ratio (12.00-20.00) Ratio POC Glucose (mg/dL) 136 H (75-99) mg/dL Total Bilirubin (0.2-1.3) mg/dL AST (17-59) U/L Alkaline Phosphatase (38-126) U/L Total Protein (6.3-8.2) g/dL Albumin (3.5-5.0) g/dL Microbiology - Last 24 Hours (Table) 03/08/21 16:20 Blood Culture - Final Blood No Growth after 144 hours Assessment and Plan Plan: Assessment and Plan of Care: Status post Left BKA on 03/11/21 secondary to Nonhealing left foot ulcer with infection Peripheral arterial disease -Status post BKA on the left on 03/11/[address] Macias -Vascular Surgery following, appreciate further recommendations. -ID following, appreciate further recommendations -Continue IV antibiotics with cefepime and daptomycin -Increased Lyrica to 50 mg BID -Blood cultures showing no growth 120 hours. Right arm swelling with positive DVT on the ultrasound -Start heparin drip Acute encephalopathy -Be secondary to CVA versus seizures vs hypercarbic respiratory failure -CT of the head showed increasing soft tissue density along the midline floor of the anterior cranial fossa, underlying thickening and irregularity of the bony calvarium floor and continuous new soft tissue fullness in the upper nasal cavity. -Above finding was discussed with neurology who recommended outpatient ENT and neurosurgery evaluation. Patient has history of meningioma in the past. -Ordered an ABG -He was given 1 dose of Plavix per neurology, we'll not renew as he will be on heparin. Insulin-dependent diabetes mellitus with recent hypoglycemia -Patient continues to have intermittent episodes of hypoglycemia. -Continue glycemic protocol with D5 as needed for hypoglycemia. Patient was on dextrose drip earlier for hypoglycemia. -Encourage pt's oral intake. End-stage renal disease on hemodialysis Monday, , and Monday -Nephrology Following, ordered for patient to continue dialysis Tuesdays, , and Monday. -Continue Sodium bicarb and Renvela -On Midodrine for chronic hypotension Hypotension -Hold BP meds Hyponatremia secondary to end-stage renal disease and daily diuretic use, stable -Follow BMP -D/c fluids -Monitor closely with Lasix and Prozac Acute exacerbation of systolic congestive heart failure, ejection fraction 30- 35%, ischemic -Start lasix as tolerated by bp, consulted instensivist as his BP is so soft to tolerate it. Coronary artery disease status post CABG 5 Hypertension Dyslipidemia Aortic stenosis -Cardiology following, appreciate recommendations. -Continue with aspirin, Lipitor Lactic acidosis, resolved DVT prophylaxis: Heparin Discussed with: Patient and RN Anticipated discharge: clinical course to determine Anticipated discharge place: [facility], [facility] A total of 60 minutes was spent on the care of this complex patient more than 50% of the time was spent in counseling and care
[2021-03-15] MEDS ORDERED: FUROSEMIDE 10 MG/ML 2 ML VIAL IV SCH (13:30)
--- NOTE | 2021-03-15 13:37 | P.CNNES ---
History of Present Illness Consult date: 03/15/21 Requesting physician: Fransico Walker Reason for Consult: Altered mental status History of Present Illness: Patient is a 66-year-old male with history of diabetes, ESRD on hemodialysis came to the hospital on 03/08/2021 from the wound center for recheck of wounds on his left foot. Patient was on oral and IV antibiotics. Patient had previous amputation of toes of the left foot in end of September 2020. Subsequently he underwent partial foot amputation for nonhealing wound, with recent debridement of the wound on 02/21/[address] Macias. He subsequently underwent left below- knee amputation for left lower extremity nonhealing wound, severe peripheral arterial disease, occluded femoral tibial graft. Patient had acute mental status change is morning. Apparently at 8:45 AM, patient had a change in mentation. Per nursing report "last known normal was 0800 besides weakness to right arm assessed this am. previous nurse on 03/14 states the swelling and weakness was there previously but it had worsened. Pt alert to person. goes in and out of being oriented. is not able to track fingers and has delayed reponses. weaker in the right arm but weak in all extremeties. pt sometimes able to follow commands and sometimes unable. a-team called. neuro notified of ct results. bp on the low side in the 70s to 80s. dr. walker notified. 1000ml bolus given. retractive breathing. pt remains lethargic and in and out of lucidness. no new orders. supportive care at this time. family notified". I spoke to patient's ex- and daughter who were present in the room. They mentioned that yesterday patient was talking fairly normally. He was slightly wide eyed, looking at the room. He was having conversation, that wanted to "roll over", or asking "move me", complaining of leg hurting on his buttocks hurting. However this mental status changes acute and new. Per nurse report, he has been on Lyrica 50 mg daily and the dose was increased to 50 mA twice a day couple days ago. No obvious focal deficits were noted by the A-team. Patient's daughter also mentioned that about 2 months ago he noticed weakness of the right hand. He informed his daughter couple months ago that he cannot get to handwork to take pop bottle cap out. Patient himself felt that he may had a small stroke, but he did not seek medical attention for that. Patient's blood test shows sodium 130 potassium 4.2, BUN 27, creatinine 5.72. AST is 79, ALT 16, WBC 11.1, hemoglobin 10.7 platelets 146. Patient's B12 is normal 844 on 12/10/2020. TSH is normal 2.31. Coronavirus PCR was negative on 03/08/2021. Chest x-ray from yesterday showed possible pulmonary venous hypertension and interstitial edema. There is likely left pleural effusion. Pneumonia not excluded. * Computed tomography scan of head showed similar bifrontal craniotomy flaps with underlying bifrontal encephalomalacia. No acute intracranial process. However there is increase in soft tissue density along the midline floor of anterior cranial fossa, underlying thickening and irregularity of the bony calvarial floor, and continuous new soft tissue fullness in the upper nasal cavity. Consider ENT referral to exclude a mass at this site. Rule out plasmacytoma or lymphoma. Alternatively, there could be recurrent neoplasm given patient's history of prior brain tumor removal. Correlate with previous pathology. * CTA of neck showed moderate to large left and small right pleural effusions with adjacent atelectasis. Cardiomegaly, pulmonary artery hypertension and post CABG changes correlate for possible CHF. Heterogenous thyroid gland. A 1.4 cm enhancing nodule on the right thyroid ultrasound. Right vertebral artery takeoff is not seen. 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 Possible moderate atherosclerotic narrowing at the origin of the left vertebral artery. Mild atherosclerotic narrowing proximal right common carotid artery followed by a severe focal 80% stenosis at the origin of the right ICA. Mild atherosclerotic narrowing proximal left common carotid artery followed by a moderate just over 50% stenosis upper left carotid bulb. * CTA of the head showed moderate focal atherosclerotic stenosis clinoid and supraclinoid right ICA as well as supraclinoid left ICA. The V4 segment right vertebral artery is not seen. The hypoplastic vessel may terminate as a PICA branch. Moderate atherosclerotic stenosis proximal to mid V4 segment left vertebral artery. No definitive evidence of carotid cavernous fistula. Superior ophthalmic venous engorgement may be due to elevated intracranial pressures. Severe left-sided paranasal sinus disease possibly secondary to obstruction cause by suspected mass along the midline floor of the anterior cranial fossa. Patient's vital signs at 10 AM was blood pressure 97/62, pulse rate 70 vision 99.2. Patient has been running blood pressure as low as 85/52. T-max 100.2 as of yesterday at 5:52 AM. Patient is currently on aspirin 81 mg and Lipitor 80 mg daily. Patient also on heparin 5000 units subcu every 12 hours. Patient has history of hypertension since he was a teenager. Patient has his tory of ESRD, on hemodialysis for last 15 years. Patient underwent bypass surgery 12 years ago. After the surgery he was not waking up. CT head showed large tumor in the midline falx. He underwent craniotomy a week later at [facility] and was diagnosed with olfactory groove meningioma. His meningioma has been stable. Patient has developed some memory issues after the surgery and has some recent memory decline a little. Patient never had any seizures in his life. He developed diabetes about a year later. Patient never had any history of seizures. Patient underwent kidney transplant previously, but it failed. Patient's father, sister also had kidney failure. Patient has smoked less than half pack per day for 10 years since August 2019 when he is even cognos consultant smoker, smokes one pack per week. Patient's daughter also mentioned that he is noncompliant with medication, would miss his medications about 70% of the time. A home health aide started coming 3 times a week recently, who was giving him the medications at least 3 times a week. Review of Systems Patient denies headache or pain anywhere. Otherwise could not check rest of the ROS. 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 History of Any Multi-Drug Resistant Organisms: None Reported Past Surgical History: Coronary Bypass/CABG, Heart Catheterization, Orthopedic Surgery Additional Past Surgical History / Comment(s): Recent transplant biopsy, vein mapping last week at [facility] in preparation for new fistula, meningioma benign brain tumor removed at [facility], (rt) kidney transplant 2013 at [facility], 5 vessel cabg, colonoscopy-clear, lt knee arthroscopy, rt arm fistulas with R upper arm fistula removed, forehead skin cancer removal. lef ttoe amputation Past Anesthesia/Blood Transfusion Reactions: Motion Sickness Past Psychological History: No Psychological Hx Reported Smoking Status: Former smoker - Past Family History Father Family Medical History: Hypertension, Myocardial Infarction ([place]), Renal Disease Additional Family Medical History / Comment(s): Pt states his father had received blood, had a reaction-a [place] and at the age of 40yrs. Mother Family Medical History: Dementia Additional Family Medical History / Comment(s): Mother is 82 yrs old. Sister(s) Family Medical History: Hyperlipidemia, Renal Disease Additional Family Medical History / Comment(s): Sister is on hemodialysis. Medications and Allergies Home Medications Medication Instructions Recorded Confirmed Type allopurinoL [Zyloprim] 100 mg PO DAILY@0800 05/16/16 03/08/21 History FLUoxetine HCL [PROzac] 20 mg PO DAILY@0800 09/15/20 03/08/21 History Metoprolol Succinate [Toprol XL] 25 mg PO DAILY 09/15/20 03/08/21 History Aspirin 81 mg PO SUMOWEFR 10/14/20 03/08/21 History Clopidogrel [Plavix] 75 mg PO HS 10/14/20 03/08/21 History Sevelamer [Renvela] 1,600 mg PO AC-TID@08,12,17 10/14/20 03/08/21 History Sodium Bicarbonate Tab 650 mg PO BID@0800,1700 10/14/20 03/08/21 History glipiZIDE [Glucotrol XL] 2.5 mg PO DAILY 10/14/20 03/08/21 History Atorvastatin [Lipitor] 80 mg PO HS tab 10/19/20 03/08/21 Rx HYDROcodone/APAP 5-325MG [[place] 1 tab PO Q6HR PRN #12 tab 10/19/20 03/08/21 Rx 5-325] Midodrine [ProAmatine] 10 mg PO AC-TID PRN tab 10/19/20 03/08/21 Rx Pregabalin [Lyrica] 25 mg PO DAILY@0800 #3 cap 10/19/20 03/08/21 Rx Furosemide [Lasix] 20 mg PO DAILY 02/19/21 03/08/21 History Nepro-Mio 1 tab PO HS 02/19/21 03/08/21 History Potassium Chloride 10 meq PO DAILY 02/19/21 03/08/21 History rOPINIRole HCL [Requip] 1 mg PO HS 02/19/21 03/08/21 History Ciprofloxacin HCl 500 mg PO DAILY 42 Days #42 tab 02/27/21 03/08/21 Rx DAPTOmycin [Cubicin] 550 mg IVPB Q48H each 02/27/21 03/08/21 Rx metroNIDAZOLE [Flagyl] 500 mg PO TID 42 Days #126 tab 02/27/21 03/08/21 Rx Allergies Allergy/AdvReac Type Severity Reaction Status Date / Time No Known Allergies Allergy Verified 03/08/21 17:13 Physical Examination - Vital Signs Vital Signs: Vital Signs Temp Pulse Resp BP Pulse Ox 03/15/21 10:00 99.2 F 87 16 97/62 94 L 03/15/21 04:51 84 83/47 03/15/21 02:00 97.5 F L 78 18 104/61 92 L 03/14/21 23:21 95 03/14/21 20:00 98.5 F 76 18 97/58 96 03/14/21 15:13 95 03/14/21 14:00 98.1 F 70 20 101/59 Intake and Output 03/14/21 03/15/21 03/15/21 22:59 06:59 14:59 Intake Total 400 Output Total 0 0 Balance 0 400 Intake: Oral 400 Output: Urine 0 0 Other: Voiding Method CAPD # Voids 0 0 # Bowel Movements 0 Patient is an elderly male, in mild respiratory distress. He is tachypneic, using oxygen by nasal cannula. Patient is obviously encephalopathic, slightly delirious, with fluctuating mental status. Patient keeps his eyes closed, but on repeated alerting, he would open his eyes and was able to follow some directions as mentioned below. Speech was slightly hoarse, but no obvious aphasia. He can name "ballpoint pen" and "eyeglasses" very well. He was not awake enough to repeat. Patient not able to tell name of his daughter just because of his grogginess although did acknowledge and register her. Attention, concentration and fund of knowledge is very limited. On cranial examination, pupils are round and reacting to light, visual salmeron could not be tested reliably, extraocular muscles are intact with no nystagmus. Face is symmetric, tongue protrudes to the midline. Tongue is dry. Palatal elevation is normal, sensation could not be checked, hearing appears slightly decreased and shoulder shrug normal, facial sensation could not be checked. 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 Patient's arms when lifted up manually, he brings it down equally and held it above the bed 30 bilaterally. No obvious focality. Myoclonic jerks were noticeable. Tone was equal bilaterally. Patient able to wiggle his right foot and leg. Patient has left BKA. Deep tendon reflexes are absent, and plantar is flat on the right. Patient has left BKA. Sensory to touch not reliable. Cerebellar function could not be checked. Gait not able to be checked. Patient has left BKA. On general examination, there is no carotid bruit or murmur, S1-S2 audible. Abdomen is soft nontender. Chest appears clear. Patient has left BKA. Patient has some ulcers on the toes of the right foot as well. No definite edema. Patient has edema of the right upper extremity. Results - Laboratory Findings CBC and BMP: 03/15/21 06:10 03/15/21 09:58 Abnormal Lab Findings: Abnormal Labs 03/08/21 03/08/21 03/08/21 14:12 14:12 15:37 WBC RBC 4.20 L Hgb 12.7 L Hct MCV MCHC RDW 19.2 H Plt Count MPV Lymphocytes # 0.5 L ESR 18 H Sodium 133 L Chloride 93 L Carbon Dioxide Anion Gap BUN 41 H Creatinine 6.10 H Est GFR (CKD-EPI)AfAm Est GFR (CKD-EPI)NonAf BUN/Creatinine Ratio Glucose POC Glucose (mg/dL) Plasma Lactic Acid [place] Total Bilirubin 2.4 H AST Alkaline Phosphatase 343 H C-Reactive Protein 5.1 H Total Protein Albumin 03/09/21 03/09/21 03/09/21 05:43 05:43 06:28 WBC RBC 3.86 L Hgb 11.3 L Hct 35.8 L MCV MCHC 31.6 L RDW 21.4 H Plt Count MPV 12.7 H Lymphocytes # ESR Sodium 132 L Chloride 93 L Carbon Dioxide Anion Gap 15.90 H BUN 43.4 H Creatinine 6.7 H Est GFR (CKD-EPI)AfAm 9.1 L Est GFR (CKD-EPI)NonAf 7.9 L BUN/Creatinine Ratio 6.47 L Glucose 44 L* POC Glucose (mg/dL) 47 L Plasma Lactic Acid [place] Total Bilirubin AST Alkaline Phosphatase C-Reactive Protein Total Protein Albumin 03/09/21 03/09/21 03/09/21 06:32 08:11 18:26 WBC RBC Hgb Hct MCV MCHC RDW Plt Count MPV Lymphocytes # ESR Sodium Chloride Carbon Dioxide Anion Gap BUN Creatinine Est GFR (CKD-EPI)AfAm Est GFR (CKD-EPI)NonAf BUN/Creatinine Ratio Glucose POC Glucose (mg/dL) 48 L 61 L 104 H Plasma Lactic Acid [place] Total Bilirubin AST Alkaline Phosphatase C-Reactive Protein Total Protein Albumin 03/09/21 03/10/21 03/10/21 20:28 09:57 09:57 WBC RBC Hgb 12.7 L Hct MCV MCHC 30.4 L RDW 19.3 H Plt Count MPV Lymphocytes # ESR Sodium 130 L Chloride 96 L Carbon Dioxide 20 L Anion Gap BUN 29 H Creatinine 4.83 H Est GFR (CKD-EPI)AfAm Est GFR (CKD-EPI)NonAf BUN/Creatinine Ratio Glucose 61 L POC Glucose (mg/dL) 108 H Plasma Lactic Acid [place] Total Bilirubin AST Alkaline Phosphatase C-Reactive Protein Total Protein Albumin 03/10/21 03/10/21 03/10/21 09:57 12:02 12:24 WBC RBC Hgb Hct MCV MCHC RDW Plt Count MPV Lymphocytes # ESR Sodium Chloride Carbon Dioxide Anion Gap BUN Creatinine Est GFR (CKD-EPI)AfAm Est GFR (CKD-EPI)NonAf BUN/Creatinine Ratio Glucose POC Glucose (mg/dL) 44 L 51 L Plasma Lactic Acid Hilton 2.3 H* Total Bilirubin AST Alkaline Phosphatase C-Reactive Protein Total Protein Albumin 10/03/10/21 03/10/21 12:39 12:43 13:01 WBC RBC Hgb Hct MCV MCHC RDW Plt Count MPV Lymphocytes # ESR Sodium Chloride Carbon Dioxide Anion Gap BUN Creatinine Est GFR (CKD-EPI)AfAm Est GFR (CKD-EPI)NonAf BUN/Creatinine Ratio Glucose POC Glucose (mg/dL) 54 L 54 L Plasma Lactic Acid Hilton 3.3 H* Total Bilirubin AST Alkaline Phosphatase C-Reactive Protein Total Protein Albumin 03/10/21 03/10/21 03/10/21 13:18 13:35 14:04 WBC RBC Hgb Hct MCV MCHC RDW Plt Count MPV Lymphocytes # ESR Sodium Chloride Carbon Dioxide Anion Gap BUN Creatinine Est GFR (CKD-EPI)AfAm Est GFR (CKD-EPI)NonAf BUN/Creatinine Ratio Glucose POC Glucose (mg/dL) 59 L 56 L 54 L Plasma Lactic Acid [place] Total Bilirubin AST Alkaline Phosphatase C-Reactive Protein Total Protein Albumin 03/10/21 03/10/21 03/10/21 16:31 17:08 20:09 WBC RBC Hgb Hct MCV MCHC RDW Plt Count MPV Lymphocytes # ESR Sodium Chloride Carbon Dioxide Anion Gap BUN Creatinine Est GFR (CKD-EPI)AfAm Est GFR (CKD-EPI)NonAf BUN/Creatinine Ratio Glucose POC Glucose (mg/dL) 159 H 151 H Plasma Lactic Acid Hilton 3.2 H* Total Bilirubin AST Alkaline Phosphatase C-Reactive Protein Total Protein Albumin 03/10/21 03/11/21 03/11/21 20:19 06:37 06:37 WBC RBC 4.09 L Hgb 11.8 L Hct MCV MCHC 29.5 L RDW 19.1 H Plt Count 136 L MPV Lymphocytes # ESR Sodium 128 L Chloride 95 L Carbon Dioxide 19 L Anion Gap BUN 36 H Creatinine 5.54 H Est GFR (CKD-EPI)AfAm Est GFR (CKD-EPI)NonAf BUN/Creatinine Ratio Glucose 114 H POC Glucose (mg/dL) Plasma Lactic Acid Hilton 2.1 H* Total Bilirubin AST Alkaline Phosphatase C-Reactive Protein Total Protein Albumin 03/11/21 03/11/21 03/11/21 07:23 12:30 20:49 WBC RBC Hgb Hct MCV MCHC RDW Plt Count MPV Lymphocytes # ESR Sodium 132 L Chloride 95 L Carbon Dioxide 20 L Anion Gap BUN 21 H Creatinine 3.87 H Est GFR (CKD-EPI)AfAm Est GFR (CKD-EPI)NonAf BUN/Creatinine Ratio Glucose 103 H POC Glucose (mg/dL) 125 H 121 H Plasma Lactic Acid [place] Total Bilirubin AST Alkaline Phosphatase C-Reactive Protein Total Protein Albumin 03/12/21 03/12/21 03/12/21 06:27 06:27 07:30 WBC RBC 4.27 L Hgb 12.1 L Hct MCV 101.1 H MCHC 28.1 L RDW 19.0 H Plt Count 137 L MPV Lymphocytes # ESR Sodium 131 L Chloride 95 L Carbon Dioxide 19.6 L Anion Gap 16.40 H BUN Creatinine 4.8 H Est GFR (CKD-EPI)AfAm 13.7 L Est GFR (CKD-EPI)NonAf 11.8 L BUN/Creatinine Ratio 4.40 L Glucose 123 H POC Glucose (mg/dL) 115 H Plasma Lactic Acid [place] Total Bilirubin AST Alkaline Phosphatase C-Reactive Protein Total Protein Albumin 03/12/21 03/12/21 03/13/21 11:39 21:14 07:40 WBC RBC Hgb Hct MCV MCHC RDW Plt Count MPV Lymphocytes # ESR Sodium Chloride Carbon Dioxide Anion Gap BUN Creatinine Est GFR (CKD-EPI)AfAm Est GFR (CKD-EPI)NonAf BUN/Creatinine Ratio Glucose POC Glucose (mg/dL) 118 H 116 H 72 L Plasma Lactic Acid [place] Total Bilirubin AST Alkaline Phosphatase C-Reactive Protein Total Protein Albumin 03/13/21 03/13/21 03/13/21 09:34 12:06 12:06 WBC RBC 3.79 L Hgb 11.4 L Hct 37.8 L MCV MCHC 30.1 L RDW 18.8 H Plt Count 135 L MPV Lymphocytes # ESR Sodium 131 L Chloride 97 L Carbon Dioxide 20 L Anion Gap BUN 25 H Creatinine 5.47 H Est GFR (CKD-EPI)AfAm Est GFR (CKD-EPI)NonAf BUN/Creatinine Ratio Glucose 104 H POC Glucose (mg/dL) 74 L Plasma Lactic Acid [place] Total Bilirubin AST Alkaline Phosphatase C-Reactive Protein Total Protein Albumin 03/13/21 03/13/21 03/14/21 16:58 20:33 08:05 WBC RBC Hgb Hct MCV MCHC RDW Plt Count MPV Lymphocytes # ESR Sodium Chloride Carbon Dioxide Anion Gap BUN Creatinine Est GFR (CKD-EPI)AfAm Est GFR (CKD-EPI)NonAf BUN/Creatinine Ratio Glucose POC Glucose (mg/dL) 125 H 112 H 69 L Plasma Lactic Acid [place] Total Bilirubin AST Alkaline Phosphatase C-Reactive Protein Total Protein Albumin 03/14/21 03/14/21 03/14/21 11:45 16:16 19:57 WBC RBC Hgb Hct MCV MCHC RDW Plt Count MPV Lymphocytes # ESR Sodium Chloride Carbon Dioxide Anion Gap BUN Creatinine Est GFR (CKD-EPI)AfAm Est GFR (CKD-EPI)NonAf BUN/Creatinine Ratio Glucose POC Glucose (mg/dL) 122 H 124 H 153 H Plasma Lactic Acid [place] Total Bilirubin AST Alkaline Phosphatase C-Reactive Protein Total Protein Albumin 03/15/21 03/15/21 03/15/21 00:05 03:52 06:10 WBC 11.18 H RBC 3.64 L Hgb 10.7 L Hct 35.1 L MCV MCHC 30.5 L RDW 21.1 H Plt Count MPV Lymphocytes # ESR Sodium Chloride Carbon Dioxide Anion Gap BUN Creatinine Est GFR (CKD-EPI)AfAm Est GFR (CKD-EPI)NonAf BUN/Creatinine Ratio Glucose POC Glucose (mg/dL) 110 H 103 H Plasma Lactic Acid [place] Total Bilirubin AST Alkaline Phosphatase C-Reactive Protein Total Protein Albumin 03/15/21 03/15/21 03/15/21 06:10 07:02 09:21 WBC RBC Hgb Hct MCV MCHC RDW Plt Count MPV Lymphocytes # ESR Sodium 133 L Chloride 95 L Carbon Dioxide Anion Gap 15.10 H BUN Creatinine 6.2 H Est GFR (CKD-EPI)AfAm 10.1 L Est GFR (CKD-EPI)NonAf 8.7 L BUN/Creatinine Ratio 4.04 L Glucose POC Glucose (mg/dL) 102 H 100 H Plasma Lactic Acid [place] Total Bilirubin AST Alkaline Phosphatase C-Reactive Protein Total Protein Albumin 03/15/21 09:58 WBC RBC Hgb Hct MCV MCHC RDW Plt Count MPV Lymphocytes # ESR Sodium 130 L Chloride Carbon Dioxide 19 L Anion Gap BUN 27 H Creatinine 5.72 H Est GFR (CKD-EPI)AfAm Est GFR (CKD-EPI)NonAf BUN/Creatinine Ratio Glucose POC Glucose (mg/dL) Plasma Lactic Acid [place] Total Bilirubin 3.5 H AST 79 H Alkaline Phosphatase 204 H C-Reactive Protein Total Protein 5.4 L Albumin 2.4 L Assessment and Plan Assessment: * Acute altered mental status, with decreased responsiveness. Exam is s ignificant for some fluctuating mental status, suggestive of toxic metabolic encephalopathy. Limited examination is relatively nonfocal. CVA appears much less likely. * Acute DVT right upper extremity * Hypotension, which can make encephalopathy worse. 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 * Right ICA stenosis 80% as per CTA of head and neck. Patient also has significant atherosclerotic cerebrovascular disease in general. 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 Current computed tomography scan of the head shows probable recurrence of the tumor as compared to computed tomography scan of head from 05/15/2016 (on my review, almost 2 cm now as compared to 1.1 cm previously). * ESRD on hemodialysis * Acute exacerbation of systolic CHF * Diabetes, well controlled, last A1c 5.5 on 01/13/2021. (Previous A1c maximum 10.6 on 05/17/2016) * CAD with history of CABG in the past. * Light smoking history Plan: * Patient's limited examination is relatively nonfocal. Patient is already on aspirin 81 mg daily and Lipitor. We will also add Plavix 75 mg daily because of significant right ICA stenosis and also intracranial atherosclerotic disease. * Continue high-dose statins Lipitor 80 mg daily. * For DVT right upper extremity patient has been started on heparin. As there is no significant neurological deficits, therefore IV heparin is clear from neurology point. * Stat MRI of the brain to evaluate for CVA, MRA of head to evaluate for intracranial vascular status. * Stat ABG * Stat EEG * Suggest ENT consultation for olfactory groove meningioma, which appears to have been large in size as compared to the previous CT from 05/15/2016. ENT recommended by radiologist. * Vascular surgery on board for ICA stenosis. * Discontinue Lyrica because of significant altered mental status, and lethargy. * Discussed with patient's ex- and daughter in detail. Results of CT/CTA: * Computed tomography scan of head showed similar bifrontal craniotomy flaps with underlying bifrontal encephalomalacia. No acute intracranial process. However there is increase in soft tissue density along the midline floor of anterior cranial fossa, underlying thickening and irregularity of the bony calvarial floor, and continuous new soft tissue fullness in the upper nasal cavity. Consider ENT referral to exclude a mass at this site. Rule out plasmacytoma or lymphoma. Alternatively, there could be recurrent neoplasm given patient's history of prior brain tumor removal. Correlate with previous pathology. * CTA of neck showed moderate to large left and small right pleural effusions with adjacent atelectasis. Cardiomegaly, pulmonary artery hypertension and post CABG changes correlate for possible CHF. Heterogenous thyroid gland. A 1.4 cm enhancing nodule on the right thyroid ultrasound. Right vertebral artery takeoff is not seen. 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 Possible moderate atherosclerotic narrowing at the origin of the left vertebral artery. Mild atherosclerotic narrowing proximal right common carotid artery followed by a severe focal 80% stenosis at the origin of the right ICA. Mild atherosclerotic narrowing proximal left common carotid artery followed by a moderate just over 50% stenosis upper left carotid bulb. * CTA of the head showed moderate focal atherosclerotic stenosis clinoid and supraclinoid right ICA as well as supraclinoid left ICA. The V4 segment right vertebral artery is not seen. The hypoplastic vessel may terminate as a PICA branch. Moderate atherosclerotic stenosis proximal to mid V4 segment left vertebral artery. No definitive evidence of carotid cavernous fistula. Superior ophthalmic venous engorgement may be due to elevated intracranial pressures. Severe left-sided paranasal sinus disease possibly secondary to obstruction cause by suspected mass along the midline floor of the anterior cranial fossa. Time with Patient: Greater than 30
[2021-03-15 13:39] LABS: INR 2.3 (<1.2); Partial Thromboplastin Time 51.1 sec (22.0-30.0); Prothrombin Time 22.1 sec (9.0-12.0)
[2021-03-15 13:46] LABS: Anisocytosis Slight; HCT 37.8 % (39.0-53.0); HGB 11.3 gm/dL (13.0-17.5); Hypochromasia Marked; MCV 100.1 fL (80.0-100.0); Macrocytosis Moderate; Mean Platelet Volume 12.2; Platelet Count 132 k/uL (150-450); RBC 3.77 m/uL (4.30-5.90); RDW 19.4 % (11.5-15.5); WBC 6.8 k/uL (3.8-10.6)
[2021-03-15 13:56] LABS: ABG Base Excess -3.4 mmol/L; ABG HCO3 23 mmol/L (21-25); ABG Oxygen Saturation 95.1 % (94-97); ABG PCO2 49 mmHg (35-45); ABG PH 7.28 (7.35-7.45); ABG PO2 80 mmHg (83-108); ABG TCO2 25 mmol/L (19-24); Allen Test Performed? Yes
--- NOTE | 2021-03-15 14:00 | PN ---
PROGRESS NOTE Patient is seen for followup for end-stage renal disease. This morning patient has been confused. His blood sugar was in the 90s. He did have mental status changes over the weekend which had improved to some degree. He has received his morning medications. Patient was also hypotensive and received a one-liter fluid bolus. Systolic blood pressure was in the 70s and 80s. Currently blood pressure this morning 97/62, heart rate 87 per minute. He is afebrile. He does open his eyes, does follow commands but is lethargic and goes back to sleep. EXAMINATION OF THE HEART: S1 and S2. EXAMINATION OF LUNGS: Bilateral breath sounds are heard. Abdomen is soft, non-tender. Examination of lower extremities shows no significant edema. Patient has left BKA. Labs show sodium 130, potassium 4.2 from today. ASSESSMENT: 1. End-stage renal disease, on hemodialysis on a Monday, , Monday schedule. 2. Mental status changes, possibly related to medications versus hypotension, status post one-liter fluid bolus. Will hold off on Lyrica today, and if mentation remains impaired we will plan for 2-1/2-hour treatment of hemodialysis today and repeat hemodialysis in a.m. Give 0.5 amp of D50 now, as blood sugar remains below 100. 3. Chronic kidney disease mineral bone disorder, maintained on Renvela. 4. Metabolic acidosis, maintained on oral sodium bicarb. 5. Peripheral vascular disease with left foot wound gangrene, status post below-knee amputation. PLAN: Possible hemodialysis today. If mentation remains impaired, hold off on Lyrica today. D50 in the amount of 0.5 amp for borderline blood sugars. MMODL / IJN: [id number] /
[2021-03-15 14:22] LABS: Band Neutrophils % 1 %; Lymphocytes # (M) 0.07 k/uL (1.0-4.8); Monocytes # (M) 0.61 k/uL (0-1.0); Neutrophils % (M) 86 %; Nucleated Red Blood Cells 0 /100 WBC (0-0); Total Cells Counted 100
[2021-03-15 14:23] LABS: Poikilocytosis (M) Present
--- NOTE | 2021-03-15 14:32 | P.PN ---
Subjective Progress Note Date: 03/15/21 Principal diagnosis: Mental status change. Pulmonary/critical care consultation dated 03/15/2021. 66-year-old male seen in the emergency department on March 08. The patient ap parently has a history of end-stage renal disease, on Monday, , Monday hemodialysis, and diabetes mellitus, who presents to the emergency department from the [facility] for a check on his left foot. Subsequently, he required a left below the knee amputation. We were called today because apparently the patient had a significant acute mental status change. A rapid response team was called this morning. The ICU nurses evaluated the patient and thought the patient could stay on the floor, since the head CT was negative. Since that time, the patient has had a change in his respiratory pattern, and is much less alert. There was nothing acute on the computed tomography scan of the brain and an MRI was ordered. That has not been done yet. I was called by the primary service to evaluate the patient for possible transfer to the intensive care unit. The nurse taking care of the patient states that this morning, the patient was awake and alert, speaking in full sentences, and was not having any changes in mental status. The patient also was found to have a pleural effusion , and a DVT in the right arm. Laboratory data includes a white count of 6.8 hemoglobin 11.3 hematocrit 37.8 and platelet count of 132,000. PTT was 22.1 INR 2.3 and PTT was 51.1. Sodium 1:30, potassium 4.2, chloride 98, CO2 19, anion gap 13, with a BUN and creatinine 27 and 5.72. Bilirubin was 3.5 and albumin was 2.4. Arterial blood gases are currently pending. Venous Doppler showed a DVT in the junction of the right internal jugular vein and innominate vein. CT angiography was reviewed. Computed tomography scan of the brain was also reviewed. Objective - Vital Signs Vital signs: Vital Signs Temp 97.6 F 03/15/21 13:40 Pulse 88 03/15/21 13:40 Resp 12 03/15/21 13:40 BP 93/58 03/15/21 13:40 Pulse Ox 98 03/15/21 13:40 Intake & Output 03/14/21 03/15/21 03/15/21 18:59 06:59 18:59 Intake Total 250 400 Output Total 0 0 Balance 250 400 Intake: Oral 250 400 Output: Urine 0 0 Other: Voiding Method CAPD CAPD # Voids 0 0 # Bowel Movements 0 - Exam REVIEW OF SYSTEMS: CONSTITUTIONAL: [Negative.] NEUROLOGIC: Mental status changes. HEENT: [ Negative.] CARDIAC: [Negative.] PULMONARY: Mild increase in respiratory rate. GI: [Negative.] : [Negative.] RHEUMATOLOGIC: [ Negative.] IMMUNOLOGIC: [ Negative.] ENDOCRINE: [Negative. ] DERMATOLOGIC: [Negative.] Very poorly responsive, with a respiratory rate in the mid 20s. Nonverbal. HEENT examination is grossly unremarkable. Nasal O2 in place at 3 L. Neck supple. Full range of motion. No adenopathy thyromegaly or neck vein distention. Cardiovascular examination reveals regular rhythm rate. S1-S2 normal. No S3 or S4. No discernible murmur noted. Heart sounds are distant. Heart rate 88 bpm. Lungs reveal mildly sonorous respirations. Breath sounds equal. Scattered rhonchi. No wheezes or crackles. Abdomen is soft, with minimal bowel sounds, and without any tenderness. Extremities reveal a left [id number] amputation.. Skin is without rash or lesion. Neurologic examination a poorly responsive male, who does open his eyes on stimulation. - Labs CBC & Chem 7: 03/15/21 13:00 03/15/21 09:58 Labs: Abnormal Lab Results - Last 24 Hours (Table) 03/14/21 03/14/21 03/15/21 Range/Units 16:16 19:57 00:05 WBC (4.50-10.00) X 10*3/uL RBC (4.40-5.60) X 10*6/uL Hgb (13.0-17.0) g/dL Hct (39.6-50.0) % MCV (80.0-100.0) fL MCHC (32.0-37.0) g/dL RDW (11.5-14.5) % Plt Count (150-450) k/uL PT (9.0-12.0) sec INR (<1.2) APTT (22.0-30.0) sec Sodium (135-145) mmol/L Chloride (96-109) mmol/L Carbon Dioxide (22-30) mmol/L Anion Gap (4.00-12.00) mmol/L BUN (9-20) mg/dL Creatinine (0.6-1.5) mg/dL Est GFR (CKD-EPI)AfAm (60.0-200.0) Est GFR (CKD-EPI)NonAf (60.0-200.0) BUN/Creatinine Ratio (12.00-20.00) Ratio POC Glucose (mg/dL) 124 H 153 H 110 H (75-99) mg/dL Total Bilirubin (0.2-1.3) mg/dL AST (17-59) U/L Alkaline Phosphatase (38-126) U/L Total Protein (6.3-8.2) g/dL Albumin (3.5-5.0) g/dL 03/15/21 03/15/21 03/15/21 Range/Units 03:52 06:10 06:10 WBC 11.18 H (4.50-10.00) X 10*3/uL RBC 3.64 L (4.40-5.60) X 10*6/uL Hgb 10.7 L (13.0-17.0) g/dL Hct 35.1 L (39.6-50.0) % MCV (80.0-100.0) fL MCHC 30.5 L (32.0-37.0) g/dL RDW 21.1 H (11.5-14.5) % Plt Count (150-450) k/uL PT (9.0-12.0) sec INR (<1.2) APTT (22.0-30.0) sec Sodium 133 L (135-145) mmol/L Chloride 95 L (96-109) mmol/L Carbon Dioxide (22-30) mmol/L Anion Gap 15.10 H (4.00-12.00) mmol/L BUN (9-20) mg/dL Creatinine 6.2 H (0.6-1.5) mg/dL Est GFR (CKD-EPI)AfAm 10.1 L (60.0-200.0) Est GFR (CKD-EPI)NonAf 8.7 L (60.0-200.0) BUN/Creatinine Ratio 4.04 L (12.00-20.00) Ratio POC Glucose (mg/dL) 103 H (75-99) mg/dL Total Bilirubin (0.2-1.3) mg/dL AST (17-59) U/L Alkaline Phosphatase (38-126) U/L Total Protein (6.3-8.2) g/dL Albumin (3.5-5.0) g/dL 03/15/21 03/15/21 03/15/21 Range/Units 07:02 09:21 09:58 WBC (4.50-10.00) X 10*3/uL RBC (4.40-5.60) X 10*6/uL Hgb (13.0-17.0) g/dL Hct (39.6-50.0) % MCV (80.0-100.0) fL MCHC (32.0-37.0) g/dL RDW (11.5-14.5) % Plt Count (150-450) k/uL PT (9.0-12.0) sec INR (<1.2) APTT (22.0-30.0) sec Sodium 130 L (135-145) mmol/L Chloride (96-109) mmol/L Carbon Dioxide 19 L (22-30) mmol/L Anion Gap (4.00-12.00) mmol/L BUN 27 H (9-20) mg/dL Creatinine 5.72 H (0.6-1.5) mg/dL Est GFR (CKD-EPI)AfAm (60.0-200.0) Est GFR (CKD-EPI)NonAf (60.0-200.0) BUN/Creatinine Ratio (12.00-20.00) Ratio POC Glucose (mg/dL) 102 H 100 H (75-99) mg/dL Total Bilirubin 3.5 H (0.2-1.3) mg/dL AST 79 H (17-59) U/L Alkaline Phosphatase 204 H (38-126) U/L Total Protein 5.4 L (6.3-8.2) g/dL Albumin 2.4 L (3.5-5.0) g/dL 03/15/21 03/15/21 03/15/21 Range/Units 11:43 13:00 13:00 WBC (4.50-10.00) X 10*3/uL RBC 3.77 L (4.40-5.60) X 10*6/uL Hgb 11.3 L (13.0-17.0) g/dL Hct 37.8 L (39.6-50.0) % MCV 100.1 H (80.0-100.0) fL MCHC 30.0 L (32.0-37.0) g/dL RDW 19.4 H (11.5-14.5) % Plt Count 132 L (150-450) k/uL PT 22.1 H (9.0-12.0) sec INR 2.3 H (<1.2) APTT 51.1 H (22.0-30.0) sec Sodium (135-145) mmol/L Chloride (96-109) mmol/L Carbon Dioxide (22-30) mmol/L Anion Gap (4.00-12.00) mmol/L BUN (9-20) mg/dL Creatinine (0.6-1.5) mg/dL Est GFR (CKD-EPI)AfAm (60.0-200.0) Est GFR (CKD-EPI)NonAf (60.0-200.0) BUN/Creatinine Ratio (12.00-20.00) Ratio POC Glucose (mg/dL) 136 H (75-99) mg/dL Total Bilirubin (0.2-1.3) mg/dL AST (17-59) U/L Alkaline Phosphatase (38-126) U/L Total Protein (6.3-8.2) g/dL Albumin (3.5-5.0) g/dL Microbiology - Last 24 Hours (Table) 03/08/21 16:20 Blood Culture - Final Blood No Growth after 144 hours Assessment and Plan Assessment: Acute mental status changes, of unclear etiology, rule out CVA. Status post left below the knee amputation. DVT, junction of the right internal jugular and innominate veins. Left-sided pleural effusion, with CHF. End-stage renal disease, currently on 3 day a week hemodialysis. History of coronary artery disease, status post bypass grafting. History of CHF. History of diabetes mellitus. Gastroesophageal reflux disease. History of hyperlipidemia. History of hypertension. History of sleep apnea syndrome. History of gout. History of skin cancer. Prior history of excision of a benign meningioma. Plan: Plan dated 03/15/2021. The patient was moved to the intensive care unit for further monitoring and management. Blood gases been ordered. The patient may benefit from BiPAP therapy. Additional recommendations and suggestions are forthcoming. He was started on heparin for the DVT. We'll continue to follow. An MRI has been ordered by neurology. Prognosis is guarded. We did have a chance to speak to family members in the room. Time with Patient: Greater than 30
[2021-03-15 14:41] LABS: Glucose,Whole Blood 96 mg/dL (75-99)
[2021-03-15] MEDS: HEPARIN SOD,PORK IN 0.45% NACL 25,000 UNIT in 0.45% NACL 1 250ML.BAG IV SCH (14:56)
[2021-03-15] MEDS ORDERED: NOREPINEPHRIN 4 MG-0.9% NS PMX 4 MG/250 ML ML IV ONE (15:52)
--- NOTE | 2021-03-15 16:22 | EEG ---
ELECTROENCEPHALOGRAM REPORT DATE OF SERVICE: 03/15/2021 PREAMBLE: This is a 66-year-old male with acute onset of altered mental status. This study is performed to evaluate for any epileptiform activity. EEG FINDINGS: This is a 21-channel portable digital EEG recorded with video, utilizing 10/20 international system with referential and bipolar montages. The recording starts and continues with presence of diffuse slowing and moderate to high amplitude mixed theta and delta activity seen in bihemispheric region. Background does not seem to be reactive to eye opening and closing. Very occasional bursts of generalized suppression lasting for one second were also seen. Different stages of sleep were not seen. No focal or generalized epileptiform activity was seen. Photic stimulation and hyperventilation were not done. IMPRESSION: This is an abnormal EEG due to background slowing of moderate to severe degree. This is suggestive of generalized cerebral dysfunction as can be seen in toxic metabolic encephalopathy or due to diffuse structural brain abnormality. No epileptiform activity was seen. MMODL / IJN: [id number] /
[2021-03-15] MEDS ORDERED: SODIUM CHLORIDE 0.9% 1,000 ML IV ONE (16:30)
--- NOTE | 2021-03-15 16:36 | XR ---
EXAMINATION TYPE: XR chest 1V confirm line [facility] DATE OF EXAM: 03/15/2021 COMPARISON: 03/14/2021 HISTORY: Line placement TECHNIQUE: Single frontal view of the chest is obtained. FINDINGS: There is demonstration of the left central venous catheter with tip overlying the SVC/righ t atrial junction. There is mild interstitial edema with superimposed hazy opacity. There is small to moderate left pleural effusion with adjacent opacity. No pneumothorax seen. Cardiomegaly and CABG no logan. The osseous structures are otherwise intact. IMPRESSION: Status post line placement. No pneumothorax. Interstitial edema with left pleural effusion.
--- NOTE | 2021-03-15 16:54 | PCN ---
PROCEDURE NOTE PULMONARY/CRITICAL CARE PROCEDURE NOTE: PROCEDURE: Left subclavian triple-lumen catheter placement. PREOPERATIVE DIAGNOSIS: Administration of fluids and pressors. POSTOPERATIVE DIAGNOSIS: Administration of fluids and pressors. OPERATORS: 1. Dr. Ochoa. 2. Dr. Castellanos. PROCEDURE DESCRIPTION: A time-out was completed verifying correct patient, procedure, site, positioning, and implant(s) or special equipment if applicable. The patient was placed in a dependent position appropriate for triple lumen catheter placement based on the vein to be cannulated. The patient's left shoulder was prepped and draped in sterile fashion. 1% Lidocaine was used to anesthetize the surrounding skin area. A triple-lumen 9F Cordis catheter was introduced into the left subclavian vein using Seldinger technique. The catheter was threaded smoothly over the guidewire and appropriate blood return was obtained. Each lumen of the catheter was evacuated of air and flushed with sterile saline. The catheter was then sutured in place to the skin and a sterile dressing was applied by the nurse. Perfusion to the extremity distal to the point of catheter insertion was checked and found to be adequate. There was no immediate complication. The patient tolerated the procedure well. A chest x-ray was ordered. One of the lines no additional recommendations are made. There was informed consent and universal timeout. MMALISL / IJN: [id number] /
[2021-03-15] MEDS: NOREPINEPHRINE 4 MG in SODIUM CHLORIDE 0.9% 250 ML IV SCH ×2 (17:18→23:36)
--- NOTE | 2021-03-15 18:22 | PN ---
PROGRESS NOTE DATE OF SERVICE: 03/15/2021 REASON FOR FOLLOWUP: Left foot infected hematoma and osteomyelitis. INTERVAL HISTORY: The patient did have a low-grade fever yesterday, but no fever this morning. The patient seemed to be slightly lethargic and weak this morning. No vomiting, diarrhea or any other changes reported by the nursing staff. PHYSICAL EXAMINATION: Blood pressure is 94/41 with pulse of 83, temperature 98. General description is an elderly male lying in bed in no distress. RESPIRATORY SYSTEM: Unlabored breathing. Decreased breath sounds at the bases. No wheeze. HEART: S1, S2. Regular rate and rhythm. ABDOMEN: Soft. No tenderness. LABS: Hemoglobin is 11.3, white count 6.8. Blood culture has been negative. Chest x-ray: Interstitial edema and left effusion. DIAGNOSTIC IMPRESSION AND PLAN: Patient with admission to hospital with left foot gangrene with underlying osteomyelitis, status post left [id number] amputation, now with significant worsening of his mentation, being worked up for CVA. Patient is covered with cefepime; to continue while monitoring his clinical course closely. Continue supportive care. MMODL / IJN: [id number] /
[2021-03-15 20:02] LABS: Calcium 8.9 mg/dL (8.4-10.2); Potassium 3.6 mmol/L (3.5-5.1)
[2021-03-15] MEDS ORDERED: AMIODARONE 360 MG in DEXTROSE 5% IN WATER 200 ML IV ONE ×2 (21:25)
[2021-03-15] MEDS ORDERED: DEXTROSE 5% IN WATER 100 ML with AMIODARONE 150 MG IV ONE (21:25)
--- NOTE | 2021-03-15 21:44 | XR ---
EXAMINATION TYPE: XR chest 1V portable DATE OF EXAM: 03/15/2021 COMPARISON: Same-day HISTORY: Line placement TECHNIQUE: Single frontal view of the chest is obtained. FINDINGS: The left central venous catheter remains in place. There is unchanged mild interstitial pr ominence with left basilar opacity and small pleural effusion. No pneumothorax seen. Stable cardiomeg brad and CABG. The osseous structures are unchanged. IMPRESSION: No significant interval change.
[2021-03-15] MEDS ORDERED: AMIODARONE IN DEXTROSE,ISO-OSM 150 MG/100 ML PLAST..BAG IV ONE (21:47)
[2021-03-15] MEDS: CEFEPIME 1 GM in SODIUM CHLORIDE 0.9% 50 ML IVPB SCH (22:41)
[2021-03-15 23:24] LABS: Potassium 3.9 mmol/L (3.5-5.1)
[2021-03-15] MEDS ORDERED: AMIODARONE IN DEXTROSE,ISO-OSM 360 MG/200 ML PLAST..BAG IV ONE (23:59)
[2021-03-16 00:19] LABS: Glucose,Whole Blood 65 mg/dL (75-99)
[2021-03-16 00:19] LABS: Glucose,Whole Blood 57 mg/dL (75-99)
[2021-03-16] MEDS ORDERED: DEXTROSE 50% SYRINGE 50 ML IVP STA ×2 (00:19→15:43)
[2021-03-16] MEDS: metroNIDAZOLE-NS PMX 500 MG in SALINE 1 100ML.BAG IVPB SCH ×2 (00:24→09:41)
[2021-03-16 00:44] LABS: Allen Test Performed? Yes
[2021-03-16 00:45] LABS: Glucose,Whole Blood 85 mg/dL (75-99)
[2021-03-16 01:12] LABS: ABG Base Excess -3.3 mmol/L; ABG HCO3 23 mmol/L (21-25); ABG PCO2 42 mmHg (35-45); ABG PH 7.34 (7.35-7.45); ABG PO2 278 mmHg (83-108); ABG TCO2 24 mmol/L (19-24)
[2021-03-16] MEDS: NOREPINEPHRINE 4 MG in SODIUM CHLORIDE 0.9% 250 ML IV SCH ×3 (03:11→09:38)
[2021-03-16] MEDS: AMIODARONE 450 MG in DEXTROSE 5% IN WATER 250 ML IV SCH ×4 (03:25→19:52)
[2021-03-16 04:03] LABS: Glucose,Whole Blood 88 mg/dL (75-99)
[2021-03-16 05:54] LABS: Anisocytosis Slight; Basophils # (A) 0.1 k/uL (0-0.2); Basophils % (A) 0 %; Eosinophils # (A) 0.1 k/uL (0-0.7); Eosinophils % (A) 0 %; HCT 44.3 % (39.0-53.0); HGB 12.6 gm/dL (13.0-17.5); Hypochromasia Marked; Lymphocytes # (A) 0.7 k/uL (1.0-4.8); Lymphocytes % (A) 4 %; MCH 29.2 pg (25.0-35.0); MCHC 28.4 g/dL (31.0-37.0); MCV 102.8 fL (80.0-100.0); Macrocytosis Moderate; Mean Platelet Volume 10.3; Monocytes # (A) 1.5 k/uL (0-1.0); Monocytes % (A) 8 %; Neutrophils # (A) 15.2 k/uL (1.3-7.7); Neutrophils % (A) 83 %; Platelet Count 137 k/uL (150-450); RBC 4.31 m/uL (4.30-5.90); RDW 18.9 % (11.5-15.5); WBC 18.3 k/uL (3.8-10.6)
[2021-03-16 06:12] LABS: Calcium 9.2 mg/dL (8.4-10.2); Magnesium 1.9 mg/dL (1.6-2.3); Phosphorus 5.5 mg/dL (2.5-4.5); Potassium 4.2 mmol/L (3.5-5.1); Total Bilirubin 4.3 mg/dL (0.2-1.3); Total Protein 6.5 g/dL (6.3-8.2)
[2021-03-16 08:42] LABS: Glucose,Whole Blood 65 mg/dL (75-99)
[2021-03-16] MEDS: DEXTROSE 50% SYRINGE 50 ML IVP ONE ×3 (08:47→12:45)
--- NOTE | 2021-03-16 09:05 | XR ---
EXAMINATION TYPE: XR chest 1V portable DATE OF EXAM: 03/16/2021 COMPARISON: Chest x-ray 03/15/2021 HISTORY: Abnormal chest x-ray, assess lungs TECHNIQUE: Single frontal view of the chest is obtained. FINDINGS: Left subclavian central venous catheter is present, distal tip is near the cavoatrial junc tion level. No evident pneumothorax. There is increasing left pleural effusion suspected. Patient is rotated. Heart may be enlarged, patient is post median sternotomy. Interstitium somewhat prominent. T here are overlying artifacts. IMPRESSION: Correlate for pleural effusion, there may be underlying pneumonia versus congestive hear t failure, interstitial edema. Rotated exam.
[2021-03-16 09:23] LABS: Glucose,Whole Blood 65 mg/dL (75-99)
--- NOTE | 2021-03-16 09:23 | P.PN ---
Subjective HISTORY OF PRESENTING ILLNESS Physical pleasant 66-year-old gentleman who follows in the office with Dr. Gibbs. He has a history of chronic kidney disease on hemodialysis, hypertension, hyperlipidemia, diabetes, nicotine dependence, and coronary artery disease with previous CABG 5 in 2011. He presented for nonhealing wound on the left lower extremity. Subsequently underwent left BKA by Dr. Macias. He is postop day #2. Echocardiogram completed this admission shows ejection fraction 30-35% which is stable since April 2020 with mild aortic stenosis, mild mitral regurgitation and mild tricuspid regurgitation. From a cardiac standpoint he's relatively stable. Complaining of pain at the site of his coccyx ulcer. Blood pressure has been on the low side. He is currently on metoprolol succinate 25 mg daily he is also on midodrine for blood pressure support. He is scheduled to undergo hemodialysis this morning. 03/14/2021 Seen and examined this morning lasting comfortably in bed. Does complain of some mild shortness of breath and congested cough per family is productive but patient is swallowing the sputum. She underwent hemodialysis yesterday with 2 L taken off. Chest x-ray this morning showed correlate for possible pulmonary venous hypertension and interstitial edema, there is likely left pleural effusion, pneumonia cannot be excluded. Patient's temperature this morning 100.2F with subsequent temp of 99.4. He remains hypotensive. Oxygen saturation 95% on 3 L via nasal cannula earlier this morning oxygen was incr eased to 6 L the time of my examination he is at 3 L nasal cannula. 03/16/21 Patient seen and examined. Cardiology was reconsulted secondary to numerous runs of nonsustained ventricular tachycardia. Patient had worsened clinical picture yesterday with hypotension and increased respiratory rate requiring transfer to ICU placement on BiPAP and triple-lumen catheter placed in the left subclavian. Approximately 3 hours after patient brought down to the ICU he started having runs of nonsustained ventricular tachycardia. Patient also was somewhat confused however somewhat more alert today. He was found to have right IJ DVT and a CT angiogram was performed which did show right internal carotid artery 80% stenosis pleural effusion, no mention of any pulmonary embolism, does not appear to be PE protocol. Heparin drip. Troponins were checked and were abnormal however patient denied any chest pain or pressure. He has been requiring increased doses of levophed. Blood cultures were drawn and are pending. white blood cell count noted to be increased to 18 today. CVP noted to be elevated at 15. Was given some IVF yesterday and no fluid taken off with HD yesterday. PHYSICAL EXAMINATION Vital signs reviewed. CONSTITUTIONAL: Well-appearing, on BiPAP use HEENT: Head is normocephalic. Pupils are equal, round. Sclerae anicteric. Mucous membranes of the mouth are moist. No JVD. No carotid bruit. CHEST EXAMINATION: Lungs are decreased at bases HEART EXAMINATION: Regular rate and rhythm. S1, S2 heard. 2/6 systolic murmur, no gallops or rub. ABDOMEN: Soft, nontender. Positive bowel sounds. EXTREMITIES: 2+ peripheral pulses, no lower extremity edema and no calf tenderness. NEUROLOGIC EXAMINATION: Patient is awake, alert. Assessment: #1 Nonhealing left foot wound, status post left BKA #2 peripheral artery disease status post left fem-tib artery bypass September 2020 #3 ischemic cardiomyopathy #4 CAD with prior CABG 5 #5 chronic kidney disease on hemodialysis #6 hypertension #7 hyperlipidemia #8 diabetes #9 mild aortic stenosis #10 NSTEMI #11 DVT #12 Shock, ? septic vs other #13 Acute on chronic systolic heart failure, currently volume overlooaded #14 R carotid stenosis #15 SIRS rule out sepsis #16 AMS Plan: Patient with acute decompensation over last 24 hours. Patient with new non- STEMI however may be type II mechanism from known severe CAD with CABG and possible sepsis with shock. We will check repeat limited 2-D echo to evaluate left ventricular function and rule out any valvular complications. Continue with heparin drip at this time. Continue vasopressors as needed. Hopeful hemodialysis with some fluid taken off as he does have elevated CVP with bilateral pleural effusions and appears volume overloaded. Continue with supportive care. Prognosis guarded. Objective - Vital Signs Vital signs: Vital Signs Temp 99.6 F 03/16/21 04:00 Pulse 105 H 03/16/21 08:00 Resp 31 H 03/16/21 08:00 BP 94/46 03/16/21 08:00 Pulse Ox 100 03/16/21 08:00 Intake & Output 03/15/21 03/16/21 03/16/21 18:59 06:59 18:59 Intake Total 0609.179 4670.863 62.121 Output Total 400 0 Balance 6147.922 7505.863 62.121 Weight 99.3 kg Intake: IV 30 390 40 .9NS 30 240 40 Cefepime 1 gm In Sodium 50 Chloride 0.9% 50 ml @ 12. 5 mls/hr IVPB HS [facility] Rx#: [id number] metroNIDAZOLE-NS PMX 500 100 mg In Saline 1 100ml.bag @ 100 mls/hr IVPB Q8HR [facility]ER[facility] Rx#:[id number] Intake, IV Titration 1013.481 968.863 22.121 Amount Heparin Sod,Pork in 0.45% 214.368 0 NaCl 25,000 unit In 0.45 % NaCl 1 250ml.bag @ 18 UNITS/KG/HR 16.329 mls/hr IV .[id number] [facility] Rx#: [id number] Norepinephrine 4 mg In 13.481 754.495 22.121 Sodium Chloride 0.9% 250 ml @ 0.05 MCG/KG/MIN 17. 282 mls/hr IV .[id number] [facility] Rx#:[id number] Sodium Chloride 0.9% 1, 1000 000 ml @ 999 mls/hr IV . Q1H1M ONE Rx#:[id number] Hemodialysis 300 Output: Urine 0 0 Hemodialysis 400 - Labs CBC & Chem 7: 03/16/21 05:40 03/16/21 05:44 Labs: Abnormal Lab Results - Last 24 Hours (Table) 03/15/21 03/15/21 03/15/21 Range/Units 06:10 09:21 09:58 WBC (3.8-10.6) k/uL RBC (4.30-5.90) m/uL Hgb (13.0-17.5) gm/dL Hct (39.0-53.0) % MCV (80.0-100.0) fL MCHC (31.0-37.0) g/dL RDW (11.5-15.5) % Plt Count (150-450) k/uL Neutrophils # (1.3-7.7) k/uL Lymphocytes # (1.0-4.8) k/uL Lymphocytes # (Manual) (1.0-4.8) k/uL Monocytes # (0-1.0) k/uL PT (9.0-12.0) sec INR (<1.2) APTT (22.0-30.0) sec ABG pH (7.35-7.45) ABG pCO2 (35-45) mmHg ABG pO2 (83-108) mmHg ABG Total CO2 (19-24) mmol/L ABG O2 Saturation (94-97) % Sodium 133 L 130 L (135-145) mmol/L Chloride 95 L (96-109) mmol/L Carbon Dioxide 19 L (22-30) mmol/L Anion Gap 15.10 H (4.00-12.00) mmol/L BUN 27 H (9-20) mg/dL Creatinine 6.2 H 5.72 H (0.6-1.5) mg/dL Est GFR (CKD-EPI)AfAm 10.1 L (60.0-200.0) Est GFR (CKD-EPI)NonAf 8.7 L (60.0-200.0) BUN/Creatinine Ratio 4.04 L (12.00-20.00) Ratio POC Glucose (mg/dL) 100 H (75-99) mg/dL Plasma Lactic Acid Hilton (0.7-2.0) mmol/L Phosphorus (2.5-4.5) mg/dL Total Bilirubin 3.5 H (0.2-1.3) mg/dL AST 79 H (17-59) U/L Alkaline Phosphatase 204 H (38-126) U/L Troponin I (0.000-0.034) ng/mL Total Protein 5.4 L (6.3-8.2) g/dL Albumin 2.4 L (3.5-5.0) g/dL 03/15/21 03/15/21 03/15/21 Range/Units 11:43 13:00 13:00 WBC (3.8-10.6) k/uL RBC 3.77 L (4.30-5.90) m/uL Hgb 11.3 L (13.0-17.5) gm/dL Hct 37.8 L (39.0-53.0) % MCV 100.1 H (80.0-100.0) fL MCHC 30.0 L (31.0-37.0) g/dL RDW 19.4 H (11.5-15.5) % Plt Count 132 L (150-450) k/uL Neutrophils # (1.3-7.7) k/uL Lymphocytes # (1.0-4.8) k/uL Lymphocytes # (Manual) 0.07 L (1.0-4.8) k/uL Monocytes # (0-1.0) k/uL PT 22.1 H (9.0-12.0) sec INR 2.3 H (<1.2) APTT 51.1 H (22.0-30.0) sec ABG pH (7.35-7.45) ABG pCO2 (35-45) mmHg ABG pO2 (83-108) mmHg ABG Total CO2 (19-24) mmol/L ABG O2 Saturation (94-97) % Sodium (135-145) mmol/L Chloride (96-109) mmol/L Carbon Dioxide (22-30) mmol/L Anion Gap (4.00-12.00) mmol/L BUN (9-20) mg/dL Creatinine (0.6-1.5) mg/dL Est GFR (CKD-EPI)AfAm (60.0-200.0) Est GFR (CKD-EPI)NonAf (60.0-200.0) BUN/Creatinine Ratio (12.00-20.00) Ratio POC Glucose (mg/dL) 136 H (75-99) mg/dL Plasma Lactic Acid Hilton (0.7-2.0) mmol/L Phosphorus (2.5-4.5) mg/dL Total Bilirubin (0.2-1.3) mg/dL AST (17-59) U/L Alkaline Phosphatase (38-126) U/L Troponin I (0.000-0.034) ng/mL Total Protein (6.3-8.2) g/dL Albumin (3.5-5.0) g/dL 03/15/21 03/15/21 03/15/21 Range/Units 13:52 19:34 19:34 WBC (3.8-10.6) k/uL RBC (4.30-5.90) m/uL Hgb (13.0-17.5) gm/dL Hct (39.0-53.0) % MCV (80.0-100.0) fL MCHC (31.0-37.0) g/dL RDW (11.5-15.5) % Plt Count (150-450) k/uL Neutrophils # (1.3-7.7) k/uL Lymphocytes # (1.0-4.8) k/uL Lymphocytes # (Manual) (1.0-4.8) k/uL Monocytes # (0-1.0) k/uL PT (9.0-12.0) sec INR (<1.2) APTT >200.0 H* (22.0-30.0) sec ABG pH 7.28 L (7.35-7.45) ABG pCO2 49 H (35-45) mmHg ABG pO2 80 L (83-108) mmHg ABG Total CO2 25 H (19-24) mmol/L ABG O2 Saturation (94-97) % Sodium 132 L (135-145) mmol/L Chloride (96-109) mmol/L Carbon Dioxide (22-30) mmol/L Anion Gap (4.00-12.00) mmol/L BUN 23 H (9-20) mg/dL Creatinine 4.82 H (0.6-1.5) mg/dL Est GFR (CKD-EPI)AfAm (60.0-200.0) Est GFR (CKD-EPI)NonAf (60.0-200.0) BUN/Creatinine Ratio (12.00-20.00) Ratio POC Glucose (mg/dL) (75-99) mg/dL Plasma Lactic Acid Hilton (0.7-2.0) mmol/L Phosphorus (2.5-4.5) mg/dL Total Bilirubin (0.2-1.3) mg/dL AST (17-59) U/L Alkaline Phosphatase (38-126) U/L Troponin I (0.000-0.034) ng/mL Total Protein (6.3-8.2) g/dL Albumin (3.5-5.0) g/dL 03/15/21 03/15/21 03/16/21 Range/Units 22:22 22:22 00:12 WBC (3.8-10.6) k/uL RBC (4.30-5.90) m/uL Hgb (13.0-17.5) gm/dL Hct (39.0-53.0) % MCV (80.0-100.0) fL MCHC (31.0-37.0) g/dL RDW (11.5-15.5) % Plt Count (150-450) k/uL Neutrophils # (1.3-7.7) k/uL Lymphocytes # (1.0-4.8) k/uL Lymphocytes # (Manual) (1.0-4.8) k/uL Monocytes # (0-1.0) k/uL PT (9.0-12.0) sec INR (<1.2) APTT (22.0-30.0) sec ABG pH (7.35-7.45) ABG pCO2 (35-45) mmHg ABG pO2 (83-108) mmHg ABG Total CO2 (19-24) mmol/L ABG O2 Saturation (94-97) % Sodium (135-145) mmol/L Chloride (96-109) mmol/L Carbon Dioxide (22-30) mmol/L Anion Gap (4.00-12.00) mmol/L BUN (9-20) mg/dL Creatinine (0.6-1.5) mg/dL Est GFR (CKD-EPI)AfAm (60.0-200.0) Est GFR (CKD-EPI)NonAf (60.0-200.0) BUN/Creatinine Ratio (12.00-20.00) Ratio POC Glucose (mg/dL) (75-99) mg/dL Plasma Lactic Acid Hilton 2.4 H* (0.7-2.0) mmol/L Phosphorus (2.5-4.5) mg/dL Total Bilirubin (0.2-1.3) mg/dL AST (17-59) U/L Alkaline Phosphatase (38-126) U/L Troponin I 1.540 H* 1.630 H* (0.000-0.034) ng/mL Total Protein (6.3-8.2) g/dL Albumin (3.5-5.0) g/dL 03/16/21 03/16/21 03/16/21 Range/Units 00:17 00:18 00:42 WBC (3.8-10.6) k/uL RBC (4.30-5.90) m/uL Hgb (13.0-17.5) gm/dL Hct (39.0-53.0) % MCV (80.0-100.0) fL MCHC (31.0-37.0) g/dL RDW (11.5-15.5) % Plt Count (150-450) k/uL Neutrophils # (1.3-7.7) k/uL Lymphocytes # (1.0-4.8) k/uL Lymphocytes # (Manual) (1.0-4.8) k/uL Monocytes # (0-1.0) k/uL PT (9.0-12.0) sec INR (<1.2) APTT (22.0-30.0) sec ABG pH 7.34 L (7.35-7.45) ABG pCO2 (35-45) mmHg ABG pO2 278 H (83-108) mmHg ABG Total CO2 (19-24) mmol/L ABG O2 Saturation 100.0 H (94-97) % Sodium (135-145) mmol/L Chloride (96-109) mmol/L Carbon Dioxide (22-30) mmol/L Anion Gap (4.00-12.00) mmol/L BUN (9-20) mg/dL Creatinine (0.6-1.5) mg/dL Est GFR (CKD-EPI)AfAm (60.0-200.0) Est GFR (CKD-EPI)NonAf (60.0-200.0) BUN/Creatinine Ratio (12.00-20.00) Ratio POC Glucose (mg/dL) 65 L 57 L (75-99) mg/dL Plasma Lactic Acid Hilton (0.7-2.0) mmol/L Phosphorus (2.5-4.5) mg/dL Total Bilirubin (0.2-1.3) mg/dL AST (17-59) U/L Alkaline Phosphatase (38-126) U/L Troponin I (0.000-0.034) ng/mL Total Protein (6.3-8.2) g/dL Albumin (3.5-5.0) g/dL 03/16/21 03/16/21 03/16/21 Range/Units 05:40 05:40 05:40 WBC 18.3 H (3.8-10.6) k/uL RBC (4.30-5.90) m/uL Hgb 12.6 L (13.0-17.5) gm/dL Hct (39.0-53.0) % MCV 102.8 H (80.0-100.0) fL MCHC 28.4 L (31.0-37.0) g/dL RDW 18.9 H (11.5-15.5) % Plt Count 137 L (150-450) k/uL Neutrophils # 15.2 H (1.3-7.7) k/uL Lymphocytes # 0.7 L (1.0-4.8) k/uL Lymphocytes # (Manual) (1.0-4.8) k/uL Monocytes # 1.5 H (0-1.0) k/uL PT (9.0-12.0) sec INR (<1.2) APTT >200.0 H* (22.0-30.0) sec ABG pH (7.35-7.45) ABG pCO2 (35-45) mmHg ABG pO2 (83-108) mmHg ABG Total CO2 (19-24) mmol/L ABG O2 Saturation (94-97) % Sodium (135-145) mmol/L Chloride (96-109) mmol/L Carbon Dioxide (22-30) mmol/L Anion Gap (4.00-12.00) mmol/L BUN (9-20) mg/dL Creatinine (0.6-1.5) mg/dL Est GFR (CKD-EPI)AfAm (60.0-200.0) Est GFR (CKD-EPI)NonAf (60.0-200.0) BUN/Creatinine Ratio (12.00-20.00) Ratio POC Glucose (mg/dL) (75-99) mg/dL Plasma Lactic Acid Hilton (0.7-2.0) mmol/L Phosphorus (2.5-4.5) mg/dL Total Bilirubin (0.2-1.3) mg/dL AST (17-59) U/L Alkaline Phosphatase (38-126) U/L Troponin I 3.180 H* (0.000-0.034) ng/mL Total Protein (6.3-8.2) g/dL Albumin (3.5-5.0) g/dL 03/16/21 03/16/21 03/16/21 Range/Units 05:40 05:44 08:41 WBC (3.8-10.6) k/uL RBC (4.30-5.90) m/uL Hgb (13.0-17.5) gm/dL Hct (39.0-53.0) % MCV (80.0-100.0) fL MCHC (31.0-37.0) g/dL RDW (11.5-15.5) % Plt Count (150-450) k/uL Neutrophils # (1.3-7.7) k/uL Lymphocytes # (1.0-4.8) k/uL Lymphocytes # (Manual) (1.0-4.8) k/uL Monocytes # (0-1.0) k/uL PT (9.0-12.0) sec INR (<1.2) APTT (22.0-30.0) sec ABG pH (7.35-7.45) ABG pCO2 (35-45) mmHg ABG pO2 (83-108) mmHg ABG Total CO2 (19-24) mmol/L ABG O2 Saturation (94-97) % Sodium 132 L (135-145) mmol/L Chloride (96-109) mmol/L Carbon Dioxide 15 L (22-30) mmol/L Anion Gap (4.00-12.00) mmol/L BUN 22 H (9-20) mg/dL Creatinine 4.91 H (0.6-1.5) mg/dL Est GFR (CKD-EPI)AfAm (60.0-200.0) Est GFR (CKD-EPI)NonAf (60.0-200.0) BUN/Creatinine Ratio (12.00-20.00) Ratio POC Glucose (mg/dL) 65 L (75-99) mg/dL Plasma Lactic Acid Hilton 2.8 H* (0.7-2.0) mmol/L Phosphorus 5.5 H (2.5-4.5) mg/dL Total Bilirubin 4.3 H (0.2-1.3) mg/dL AST 112 H (17-59) U/L Alkaline Phosphatase 241 H (38-126) U/L Troponin I (0.000-0.034) ng/mL Total Protein (6.3-8.2) g/dL Albumin 3.0 L (3.5-5.0) g/dL
[2021-03-16 09:32] LABS: Glucose,Whole Blood 83 mg/dL (75-99)
--- NOTE | 2021-03-16 09:50 | PCN ---
PROCEDURE NOTE PULMONARY/CRITICAL CARE PROCEDURE NOTE: LEFT RADIAL ARTERIAL LINE PLACEMENT: PREOPERATIVE DIAGNOSIS: Missed frequent blood draws and blood gas monitoring. POSTOPERATIVE DIAGNOSIS: Missed frequent blood draws and blood gas monitoring. OPERATORS: 1. Dr. Ochoa. 2. Dr. Castellanos. PROCEDURE DESCRIPTION: A time-out was completed verifying correct patient, procedure, site, positioning, and implant(s) or special equipment if applicable. Aren's test was performed to ensure adequate perfusion. The patient's left wrist was prepped and draped in sterile fashion. 1% Lidocaine was used to anesthetize the area. An 18G Arrow arterial line was introduced into the left radial artery. The catheter was threaded over the guidewire and the needle was removed with appropriate pulsatile blood return. Blood loss was minimal. The catheter was then sutured in place to the skin and a sterile dressing applied by the nurse. Perfusion to the extremity distal to the point of catheter insertion was checked and found to be adequate. There was good blood return and waveform. The patient tolerated the procedure well and there were no immediate complications. MMODL / IJN: [id number] /
--- NOTE | 2021-03-16 10:11 | P.PN ---
Subjective Progress Note Date: 03/16/21 Principal diagnosis: Mental status change. Pulmonary/critical care consultation dated 03/15/2021. 66-year-old male seen in the emergency department on March 08. The patient ap parently has a history of end-stage renal disease, on Monday, , Monday hemodialysis, and diabetes mellitus, who presents to the emergency department from the [facility] for a check on his left foot. Subsequently, he required a left below the knee amputation. We were called today because apparently the patient had a significant acute mental status change. A rapid response team was called this morning. The ICU nurses evaluated the patient and thought the patient could stay on the floor, since the head CT was negative. Since that time, the patient has had a change in his respiratory pattern, and is much less alert. There was nothing acute on the computed tomography scan of the brain and an MRI was ordered. That has not been done yet. I was called by the primary service to evaluate the patient for possible transfer to the intensive care unit. The nurse taking care of the patient states that this morning, the patient was awake and alert, speaking in full sentences, and was not having any changes in mental status. The patient also was found to have a pleural effusion , and a DVT in the right arm. Laboratory data includes a white count of 6.8 hemoglobin 11.3 hematocrit 37.8 and platelet count of 132,000. PTT was 22.1 INR 2.3 and PTT was 51.1. Sodium 1:30, potassium 4.2, chloride 98, CO2 19, anion gap 13, with a BUN and creatinine 27 and 5.72. Bilirubin was 3.5 and albumin was 2.4. Arterial blood gases are currently pending. Venous Doppler showed a DVT in the junction of the right internal jugular vein and innominate vein. CT angiography was reviewed. Computed tomography scan of the brain was also reviewed. Progress note dated 03/16/2021. 66-year-old male seen yesterday on the general medical floor. The patient was initially seen in the emergency department on March 08. The patient has a history of end-stage renal disease, and diabetes mellitus. The patient was recently discovered to have significant infection and gangrenous changes in the left lower extremity, and had a left below the knee amputation on this admission. We are consulted yesterday because of mental status changes, and a change in the patient's respiratory status, and we decided to move the patient to the intensive care unit. Currently, the patient is on BiPAP, with settings of IPAP 10, EPAP 5, and FiO2 40%. The patient is currently on amiodarone 0.5 mg/m, norepinephrine at 26 mcg/m, heparin via weightbase protocol, and saline at KVO. Arterial blood gases done on 100% oxygen, and BiPAP, she will pO2 of 278, pCO2 42, and a pH is 7.34. The patient is currently on Flagyl as an antibiotic. White count 18.3, hemoglobin 12.6, hematocrit 44.3, platelet count 137,000. Sodium 132, potassium 4.2, chlorides 100, CO2 15, anion gap 17, BUN 22, and creatinine 4.91. Lactic acid was 2.8. Troponin was 3.180. Blood cultures are currently negative. Chest x-ray in my opinion is most consistent with fluid overload. Objective - Vital Signs Vital signs: Vital Signs Temp 99.6 F 03/16/21 04:00 Pulse 105 H 03/16/21 08:00 Resp 31 H 03/16/21 08:00 BP 94/46 03/16/21 08:00 Pulse Ox 100 03/16/21 08:00 Intake & Output 03/15/21 03/16/21 03/16/21 18:59 06:59 18:59 Intake Total 6328.290 9797.863 280.059 Output Total 400 0 Balance 1531.337 9395.863 280.059 Weight 99.3 kg Intake: IV 30 390 40 .9NS 30 240 40 Cefepime 1 gm In Sodium 50 Chloride 0.9% 50 ml @ 12. 5 mls/hr IVPB HS FERNANDO Rx#: [id number] metroNIDAZOLE-NS PMX 500 100 mg In Saline 1 100ml.bag @ 100 mls/hr IVPB Q8HR [facility]ERNA[facility] Rx#:[id number] Intake, IV Titration 1013.481 968.863 240.059 Amount Heparin Sod,Pork in 0.45% 214.368 0 NaCl 25,000 unit In 0.45 % NaCl 1 250ml.bag @ 18 UNITS/KG/HR 16.329 mls/hr IV .[id number] FERNANDO Rx#: [id number] Norepinephrine 4 mg In 13.481 754.495 240.059 Sodium Chloride 0.9% 250 ml @ 0.05 MCG/KG/MIN 17. 282 mls/hr IV .[id number] [facility] Rx#:[id number] Sodium Chloride 0.9% 1, 1000 000 ml @ 999 mls/hr IV . Q1H1M ONE Rx#:[id number] Hemodialysis 300 Output: Urine 0 0 Hemodialysis 400 - Exam REVIEW OF SYSTEMS: CONSTITUTIONAL: [Negative.] NEUROLOGIC: Mental status changes. HEENT: [ Negative.] CARDIAC: [Negative.] PULMONARY: Mild increase in respiratory rate. GI: [Negative.] : [Negative.] RHEUMATOLOGIC: [ Negative.] IMMUNOLOGIC: [ Negative.] ENDOCRINE: [Negative. ] DERMATOLOGIC: [Negative.] A bit more awake and alert today. The patient's currently on BiPAP. He nods his head appropriately. HEENT examination is grossly unremarkable. BiPAP mask in place. Neck supple. Full range of motion. No adenopathy thyromegaly or neck vein distention. Cardiovascular examination reveals regular rhythm rate. S1-S2 normal. No S3 or S4. No discernible murmur noted. Heart sounds are distant. Heart rate 105 bpm. Lungs reveal mildly sonorous respirations. Breath sounds equal. Scattered rhonchi. No wheezes or crackles. Saturations are 100%. Abdomen is soft, with minimal bowel sounds, and without any tenderness. Extremities reveal a left [id number] amputation.. Skin is without rash or lesion. Neurologic examination reveals the patient to be much more awake and alert today. He does not his head appropriately. - Labs CBC & Chem 7: 03/16/21 05:40 03/16/21 05:44 Labs: Abnormal Lab Results - Last 24 Hours (Table) 03/15/21 03/15/21 03/15/21 Range/Units 06:10 09:58 11:43 WBC (3.8-10.6) k/uL RBC (4.30-5.90) m/uL Hgb (13.0-17.5) gm/dL Hct (39.0-53.0) % MCV (80.0-100.0) fL MCHC (31.0-37.0) g/dL RDW (11.5-15.5) % Plt Count (150-450) k/uL Neutrophils # (1.3-7.7) k/uL Lymphocytes # (1.0-4.8) k/uL Lymphocytes # (Manual) (1.0-4.8) k/uL Monocytes # (0-1.0) k/uL PT (9.0-12.0) sec INR (<1.2) APTT (22.0-30.0) sec ABG pH (7.35-7.45) ABG pCO2 (35-45) mmHg ABG pO2 (83-108) mmHg ABG Total CO2 (19-24) mmol/L ABG O2 Saturation (94-97) % Sodium 133 L 130 L (135-145) mmol/L Chloride 95 L (96-109) mmol/L Carbon Dioxide 19 L (22-30) mmol/L Anion Gap 15.10 H (4.00-12.00) mmol/L BUN 27 H (9-20) mg/dL Creatinine 6.2 H 5.72 H (0.6-1.5) mg/dL Est GFR (CKD-EPI)AfAm 10.1 L (60.0-200.0) Est GFR (CKD-EPI)NonAf 8.7 L (60.0-200.0) BUN/Creatinine Ratio 4.04 L (12.00-20.00) Ratio POC Glucose (mg/dL) 136 H (75-99) mg/dL Plasma Lactic Acid Hilton (0.7-2.0) mmol/L Phosphorus (2.5-4.5) mg/dL Total Bilirubin 3.5 H (0.2-1.3) mg/dL AST 79 H (17-59) U/L Alkaline Phosphatase 204 H (38-126) U/L Troponin I (0.000-0.034) ng/mL Total Protein 5.4 L (6.3-8.2) g/dL Albumin 2.4 L (3.5-5.0) g/dL 03/15/21 03/15/21 03/15/21 Range/Units 13:00 13:00 13:52 WBC (3.8-10.6) k/uL RBC 3.77 L (4.30-5.90) m/uL Hgb 11.3 L (13.0-17.5) gm/dL Hct 37.8 L (39.0-53.0) % MCV 100.1 H (80.0-100.0) fL MCHC 30.0 L (31.0-37.0) g/dL RDW 19.4 H (11.5-15.5) % Plt Count 132 L (150-450) k/uL Neutrophils # (1.3-7.7) k/uL Lymphocytes # (1.0-4.8) k/uL Lymphocytes # (Manual) 0.07 L (1.0-4.8) k/uL Monocytes # (0-1.0) k/uL PT 22.1 H (9.0-12.0) sec INR 2.3 H (<1.2) APTT 51.1 H (22.0-30.0) sec ABG pH 7.28 L (7.35-7.45) ABG pCO2 49 H (35-45) mmHg ABG pO2 80 L (83-108) mmHg ABG Total CO2 25 H (19-24) mmol/L ABG O2 Saturation (94-97) % Sodium (135-145) mmol/L Chloride (96-109) mmol/L Carbon Dioxide (22-30) mmol/L Anion Gap (4.00-12.00) mmol/L BUN (9-20) mg/dL Creatinine (0.6-1.5) mg/dL Est GFR (CKD-EPI)AfAm (60.0-200.0) Est GFR (CKD-EPI)NonAf (60.0-200.0) BUN/Creatinine Ratio (12.00-20.00) Ratio POC Glucose (mg/dL) (75-99) mg/dL Plasma Lactic Acid Hilton (0.7-2.0) mmol/L Phosphorus (2.5-4.5) mg/dL Total Bilirubin (0.2-1.3) mg/dL AST (17-59) U/L Alkaline Phosphatase (38-126) U/L Troponin I (0.000-0.034) ng/mL Total Protein (6.3-8.2) g/dL Albumin (3.5-5.0) g/dL 03/15/21 03/15/21 03/15/21 Range/Units 19:34 19:34 22:22 WBC (3.8-10.6) k/uL RBC (4.30-5.90) m/uL Hgb (13.0-17.5) gm/dL Hct (39.0-53.0) % MCV (80.0-100.0) fL MCHC (31.0-37.0) g/dL RDW (11.5-15.5) % Plt Count (150-450) k/uL Neutrophils # (1.3-7.7) k/uL Lymphocytes # (1.0-4.8) k/uL Lymphocytes # (Manual) (1.0-4.8) k/uL Monocytes # (0-1.0) k/uL PT (9.0-12.0) sec INR (<1.2) APTT >200.0 H* (22.0-30.0) sec ABG pH (7.35-7.45) ABG pCO2 (35-45) mmHg ABG pO2 (83-108) mmHg ABG Total CO2 (19-24) mmol/L ABG O2 Saturation (94-97) % Sodium 132 L (135-145) mmol/L Chloride (96-109) mmol/L Carbon Dioxide (22-30) mmol/L Anion Gap (4.00-12.00) mmol/L BUN 23 H (9-20) mg/dL Creatinine 4.82 H (0.6-1.5) mg/dL Est GFR (CKD-EPI)AfAm (60.0-200.0) Est GFR (CKD-EPI)NonAf (60.0-200.0) BUN/Creatinine Ratio (12.00-20.00) Ratio POC Glucose (mg/dL) (75-99) mg/dL Plasma Lactic Acid Hilton (0.7-2.0) mmol/L Phosphorus (2.5-4.5) mg/dL Total Bilirubin (0.2-1.3) mg/dL AST (17-59) U/L Alkaline Phosphatase (38-126) U/L Troponin I 1.540 H* (0.000-0.034) ng/mL Total Protein (6.3-8.2) g/dL Albumin (3.5-5.0) g/dL 11/06/0403/16/21 03/16/21 Range/Units 22:22 00:12 00:17 WBC (3.8-10.6) k/uL RBC (4.30-5.90) m/uL Hgb (13.0-17.5) gm/dL Hct (39.0-53.0) % MCV (80.0-100.0) fL MCHC (31.0-37.0) g/dL RDW (11.5-15.5) % Plt Count (150-450) k/uL Neutrophils # (1.3-7.7) k/uL Lymphocytes # (1.0-4.8) k/uL Lymphocytes # (Manual) (1.0-4.8) k/uL Monocytes # (0-1.0) k/uL PT (9.0-12.0) sec INR (<1.2) APTT (22.0-30.0) sec ABG pH (7.35-7.45) ABG pCO2 (35-45) mmHg ABG pO2 (83-108) mmHg ABG Total CO2 (19-24) mmol/L ABG O2 Saturation (94-97) % Sodium (135-145) mmol/L Chloride (96-109) mmol/L Carbon Dioxide (22-30) mmol/L Anion Gap (4.00-12.00) mmol/L BUN (9-20) mg/dL Creatinine (0.6-1.5) mg/dL Est GFR (CKD-EPI)AfAm (60.0-200.0) Est GFR (CKD-EPI)NonAf (60.0-200.0) BUN/Creatinine Ratio (12.00-20.00) Ratio POC Glucose (mg/dL) 65 L (75-99) mg/dL Plasma Lactic Acid Hilton 2.4 H* (0.7-2.0) mmol/L Phosphorus (2.5-4.5) mg/dL Total Bilirubin (0.2-1.3) mg/dL AST (17-59) U/L Alkaline Phosphatase (38-126) U/L Troponin I 1.630 H* (0.000-0.034) ng/mL Total Protein (6.3-8.2) g/dL Albumin (3.5-5.0) g/dL 03/16/21 03/16/21 03/16/21 Range/Units 00:18 00:42 05:40 WBC 18.3 H (3.8-10.6) k/uL RBC (4.30-5.90) m/uL Hgb 12.6 L (13.0-17.5) gm/dL Hct (39.0-53.0) % MCV 102.8 H (80.0-100.0) fL MCHC 28.4 L (31.0-37.0) g/dL RDW 18.9 H (11.5-15.5) % Plt Count 137 L (150-450) k/uL Neutrophils # 15.2 H (1.3-7.7) k/uL Lymphocytes # 0.7 L (1.0-4.8) k/uL Lymphocytes # (Manual) (1.0-4.8) k/uL Monocytes # 1.5 H (0-1.0) k/uL PT (9.0-12.0) sec INR (<1.2) APTT (22.0-30.0) sec ABG pH 7.34 L (7.35-7.45) ABG pCO2 (35-45) mmHg ABG pO2 278 H (83-108) mmHg ABG Total CO2 (19-24) mmol/L ABG O2 Saturation 100.0 H (94-97) % Sodium (135-145) mmol/L Chloride (96-109) mmol/L Carbon Dioxide (22-30) mmol/L Anion Gap (4.00-12.00) mmol/L BUN (9-20) mg/dL Creatinine (0.6-1.5) mg/dL Est GFR (CKD-EPI)AfAm (60.0-200.0) Est GFR (CKD-EPI)NonAf (60.0-200.0) BUN/Creatinine Ratio (12.00-20.00) Ratio POC Glucose (mg/dL) 57 L (75-99) mg/dL Plasma Lactic Acid Hilton (0.7-2.0) mmol/L Phosphorus (2.5-4.5) mg/dL Total Bilirubin (0.2-1.3) mg/dL AST (17-59) U/L Alkaline Phosphatase (38-126) U/L Troponin I (0.000-0.034) ng/mL Total Protein (6.3-8.2) g/dL Albumin (3.5-5.0) g/dL 03/16/21 03/16/21 03/16/21 Range/Units 05:40 05:40 05:40 WBC (3.8-10.6) k/uL RBC (4.30-5.90) m/uL Hgb (13.0-17.5) gm/dL Hct (39.0-53.0) % MCV (80.0-100.0) fL MCHC (31.0-37.0) g/dL RDW (11.5-15.5) % Plt Count (150-450) k/uL Neutrophils # (1.3-7.7) k/uL Lymphocytes # (1.0-4.8) k/uL Lymphocytes # (Manual) (1.0-4.8) k/uL Monocytes # (0-1.0) k/uL PT (9.0-12.0) sec INR (<1.2) APTT >200.0 H* (22.0-30.0) sec ABG pH (7.35-7.45) ABG pCO2 (35-45) mmHg ABG pO2 (83-108) mmHg ABG Total CO2 (19-24) mmol/L ABG O2 Saturation (94-97) % Sodium (135-145) mmol/L Chloride (96-109) mmol/L Carbon Dioxide (22-30) mmol/L Anion Gap (4.00-12.00) mmol/L BUN (9-20) mg/dL Creatinine (0.6-1.5) mg/dL Est GFR (CKD-EPI)AfAm (60.0-200.0) Est GFR (CKD-EPI)NonAf (60.0-200.0) BUN/Creatinine Ratio (12.00-20.00) Ratio POC Glucose (mg/dL) (75-99) mg/dL Plasma Lactic Acid Hilton 2.8 H* (0.7-2.0) mmol/L Phosphorus (2.5-4.5) mg/dL Total Bilirubin (0.2-1.3) mg/dL AST (17-59) U/L Alkaline Phosphatase (38-126) U/L Troponin I 3.180 H* (0.000-0.034) ng/mL Total Protein (6.3-8.2) g/dL Albumin (3.5-5.0) g/dL 03/16/21 03/16/21 03/16/21 Range/Units 05:44 08:41 09:22 WBC (3.8-10.6) k/uL RBC (4.30-5.90) m/uL Hgb (13.0-17.5) gm/dL Hct (39.0-53.0) % MCV (80.0-100.0) fL MCHC (31.0-37.0) g/dL RDW (11.5-15.5) % Plt Count (150-450) k/uL Neutrophils # (1.3-7.7) k/uL Lymphocytes # (1.0-4.8) k/uL Lymphocytes # (Manual) (1.0-4.8) k/uL Monocytes # (0-1.0) k/uL PT (9.0-12.0) sec INR (<1.2) APTT (22.0-30.0) sec ABG pH (7.35-7.45) ABG pCO2 (35-45) mmHg ABG pO2 (83-108) mmHg ABG Total CO2 (19-24) mmol/L ABG O2 Saturation (94-97) % Sodium 132 L (135-145) mmol/L Chloride (96-109) mmol/L Carbon Dioxide 15 L (22-30) mmol/L Anion Gap (4.00-12.00) mmol/L BUN 22 H (9-20) mg/dL Creatinine 4.91 H (0.6-1.5) mg/dL Est GFR (CKD-EPI)AfAm (60.0-200.0) Est GFR (CKD-EPI)NonAf (60.0-200.0) BUN/Creatinine Ratio (12.00-20.00) Ratio POC Glucose (mg/dL) 65 L 65 L (75-99) mg/dL Plasma Lactic Acid Hilton (0.7-2.0) mmol/L Phosphorus 5.5 H (2.5-4.5) mg/dL Total Bilirubin 4.3 H (0.2-1.3) mg/dL AST 112 H (17-59) U/L Alkaline Phosphatase 241 H (38-126) U/L Troponin I (0.000-0.034) ng/mL Total Protein (6.3-8.2) g/dL Albumin 3.0 L (3.5-5.0) g/dL Assessment and Plan Assessment: Acute mental status changes, of unclear etiology, rule out CVA. Status post left below the knee amputation. DVT, junction of the right internal jugular and innominate veins. Left-sided pleural effusion, with CHF. End-stage renal disease, currently on 3 day a week hemodialysis. History of coronary artery disease, status post bypass grafting. History of CHF. History of diabetes mellitus. Gastroesophageal reflux disease. History of hyperlipidemia. History of hypertension. History of sleep apnea syndrome. History of gout. History of skin cancer. Prior history of excision of a benign meningioma. Plan: Plan dated 03/15/2021. The patient was moved to the intensive care unit for further monitoring and management. Blood gases been ordered. The patient may benefit from BiPAP therapy. Additional recommendations and suggestions are forthcoming. He was started on heparin for the DVT. We'll continue to follow. An MRI has been ordered by neurology. Prognosis is guarded. We did have a chance to speak to family members in the room. Plan dated 03/16/2021. Antibiotics will be addressed by the infectious disease specialist. The patient remains on amiodarone, and norepinephrine. The patient's also on IV heparin. The patient's on BiPAP at 10/5 and 40%. Arterial blood gases done early this morning, or excellent. A central line was placed late yesterday, and a radial art line was placed today. We will continue to follow make recommendations where appropriate. Prognosis is guarded. Time with Patient: Greater than 30
[2021-03-16] MEDS: HEPARIN SOD,PORK IN 0.45% NACL 25,000 UNIT in 0.45% NACL 1 250ML.BAG IV SCH ×2 (10:26→19:52)
[2021-03-16] MEDS ORDERED: AMIODARONE IN DEXTROSE,ISO-OSM 150 MG/100 ML PLAST..BAG IV ONE (10:28)
[2021-03-16] MEDS ORDERED: DEXTROSE 5% IN WATER 100 ML with AMIODARONE 150 MG IV ONE (10:30)
[2021-03-16 11:05] VITALS: TEMP 99.1
[2021-03-16] MEDS ORDERED: SODIUM CHLORIDE 0.9% 500 ML 500 ML IV ONE ×2 (11:08→12:17)
[2021-03-16 11:10] LABS: Potassium 3.6 mmol/L (3.5-5.1)
[2021-03-16] MEDS ORDERED: NOREPINEPHRINE 32 MG in SODIUM CHLORIDE 0.9% 218 ML IV SCH (11:30)
[2021-03-16 11:42] LABS: Magnesium 1.9 mg/dL (1.6-2.3)
[2021-03-16 11:52] LABS: Glucose,Whole Blood 70 mg/dL (75-99)
[2021-03-16] MEDS ORDERED: PIPERACILLIN-TAZOBACTAM 3.375 GM in SODIUM CHLORIDE 0.9% 100 ML IVPB SCH (12:00)
[2021-03-16 12:43] LABS: Glucose,Whole Blood 62 mg/dL (75-99)
[2021-03-16 13:41] LABS: Glucose,Whole Blood 74 mg/dL (75-99)
[2021-03-16] MEDS ORDERED: SODIUM CHLORIDE 0.9% 50 ML with VASOPRESSIN 20 UNIT IVPB SCH ×2 (14:00)
--- NOTE | 2021-03-16 14:00 | PN ---
PROGRESS NOTE Patient is seen for followup for end-stage renal disease. He was transferred to the ICU yesterday secondary to persistent hypotension. The patient was started on Levophed. It has progressively increased to about 50 mics now. The patient had about 2- 1/2 hour treatment yesterday, but he continued to have runs of ventricular tachycardia. This morning again when patient was being dialyzed, he had multiple arrhythmias with a few runs of ventricular tachycardia. He developed atrial fibrillation. Blood pressure dropped into the 60s and the dialysis was discontinued. EXAMINATION: Today, blood pressure 100/68, heart rate 114 per minute. Patient is maintained on BiPAP. He is awake. He is oriented x2. Trying to communicate as well. Examination of the heart S1, S2. Examination of the lungs, bilateral breath sounds are heard. Abdomen is soft, nontender. Examination of lower extremities shows edema 1+ with left BKA. LABS: Show lactic acid 2.9, sodium 132, potassium 4.2, BUN 22, creatinine 4.9, hemoglobin 12.6 g/dL. ASSESSMENT: 1. End-stage renal disease on hemodialysis on a Monday, , Monday schedule. The patient had a short treatment of dialysis yesterday and he was taken off dialysis today as well due to cardiac dysrhythmia and hypotension. Currently started on amiodarone drip. Patient had an amiodarone bolus as well. His troponin is elevated to 3.18 now. The patient is maintained on IV heparin. 2. Metabolic acidosis associated with renal failure as well as lactic acidosis. Expect improvement with dialysis if the patient is able to tolerate renal replacement therapy in a.m. 3. Atrial fibrillation with RVR maintained on amiodarone. 4. Hypotension. No active bleeding noted. Rule out underlying infection maintained on empiric antibiotics. PLAN: Hold hemodialysis today. We will try again in a.m. with low blood flows and low dialysate flow. MMODL / IJN: [id number] /
--- NOTE | 2021-03-16 14:06 | P.PN ---
Subjective Progress Note Date: 03/16/21 Patient seen and examined in the ICU. Patient was transferred to the ICU yesterday for altered mental status changes as well as hypotension. He is currently on BiPAP. Apparently the patient had some runs of V. tach and was started on amiodarone drip. He remains on levofed. He had elevated troponins a nd cardiology is now on consult. He remains with altered mental status. He is currently on IV heparin drip for right IJV DVT. He is alert and oriented to self, able to follow some simple commands. Able prostatic skin yesterday and patient has a stump manager telecom in place with immobilizer. WBC 18.3, hemoglobin 12.6. Patient is covered with cefepime and infectious disease is following. He is currently undergoing dialysis. Objective - Vital Signs Vital signs: Vital Signs Temp 99.1 F 03/16/21 11:02 Pulse 114 H 03/16/21 11:00 Resp 23 03/16/21 11:02 BP 100/68 03/16/21 11:02 Pulse Ox 97 03/16/21 11:00 Intake & Output 03/15/21 03/16/21 03/16/21 18:59 06:59 18:59 Intake Total 2376.185 7934.863 656.950 Output Total 400 100 Balance 7494.314 7672.863 556.950 Weight 99.3 kg Intake: IV 30 390 160 .9NS 30 240 60 Cefepime 1 gm In Sodium 50 Chloride 0.9% 50 ml @ 12. 5 mls/hr IVPB HS [facility] Rx#: [id number] metroNIDAZOLE-NS PMX 500 100 100 mg In Saline 1 100ml.bag @ 100 mls/hr IVPB Q8HR [facility] Rx#:[id number] Intake, IV Titration 1013.481 968.863 496.950 Amount Heparin Sod,Pork in 0.45% 214.368 23.586 NaCl 25,000 unit In 0.45 % NaCl 1 250ml.bag @ 18 UNITS/KG/HR 16.329 mls/hr IV .[id number] [facility] Rx#: [id number] Norepinephrine 4 mg In 13.481 754.495 473.364 Sodium Chloride 0.9% 250 ml @ 0.05 MCG/KG/MIN 17. 282 mls/hr [id number] Rx#:[id number] Sodium Chloride 0.9% 1, 1000 000 ml @ 999 mls/hr IV . Q1H1M [facility] Rx#:[id number] Hemodialysis 300 Output: Urine 0 0 Hemodialysis 400 100 ABP, PAP, CO, CI - Last Documented Arterial Blood Pressure 84/51 - Exam General appearance: The patient is drowsy, oriented to self. With BiPAP on. HET: Head is normocephalic and atraumatic. Neck: Supple without lymphadenopathy. Trachea midline. Abdomen: Soft, nontender, nondistended. Extremities: Left lower extremity BKA with [place] well approximated, clean dry and intact. Stump manager telecom in place. Right upper extremity swelling, palpable thrill in graft, warm to the touch, good capillary refill. Palpable radial pulse, with multiphasic Doppler signal. Right lower extremity with good capillary refill, posterior tibialis with positive Doppler signal. Neurological: Alert and oriented 1-2. Able to follow simple commands. - Labs CBC & Chem 7: 03/16/21 05:40 03/16/21 10:15 Labs: Abnormal Lab Results - Last 24 Hours (Table) 03/15/21 03/15/21 03/15/21 Range/Units 13:00 13:00 13:52 WBC (3.8-10.6) k/uL RBC 3.77 L (4.30-5.90) m/uL Hgb 11.3 L (13.0-17.5) gm/dL Hct 37.8 L (39.0-53.0) % MCV 100.1 H (80.0-100.0) fL MCHC 30.0 L (31.0-37.0) g/dL RDW 19.4 H (11.5-15.5) % Plt Count 132 L (150-450) k/uL Neutrophils # (1.3-7.7) k/uL Lymphocytes # (1.0-4.8) k/uL Lymphocytes # (Manual) 0.07 L (1.0-4.8) k/uL Monocytes # (0-1.0) k/uL PT 22.1 H (9.0-12.0) sec INR 2.3 H (<1.2) APTT 51.1 H (22.0-30.0) sec ABG pH 7.28 L (7.35-7.45) ABG pCO2 49 H (35-45) mmHg ABG pO2 80 L (83-108) mmHg ABG Total CO2 25 H (19-24) mmol/L ABG O2 Saturation (94-97) % Sodium (137-145) mmol/L Carbon Dioxide (22-30) mmol/L BUN (9-20) mg/dL Creatinine (0.66-1.25) mg/dL POC Glucose (mg/dL) (75-99) mg/dL Plasma Lactic Acid Hilton (0.7-2.0) mmol/L Phosphorus (2.5-4.5) mg/dL Total Bilirubin (0.2-1.3) mg/dL AST (17-59) U/L Alkaline Phosphatase (38-126) U/L Troponin I (0.000-0.034) ng/mL Albumin (3.5-5.0) g/dL 03/15/21 03/15/21 03/15/21 Range/Units 19:34 19:34 22:22 WBC (3.8-10.6) k/uL RBC (4.30-5.90) m/uL Hgb (13.0-17.5) gm/dL Hct (39.0-53.0) % MCV (80.0-100.0) fL MCHC (31.0-37.0) g/dL RDW (11.5-15.5) % Plt Count (150-450) k/uL Neutrophils # (1.3-7.7) k/uL Lymphocytes # (1.0-4.8) k/uL Lymphocytes # (Manual) (1.0-4.8) k/uL Monocytes # (0-1.0) k/uL PT (9.0-12.0) sec INR (<1.2) APTT >200.0 H* (22.0-30.0) sec ABG pH (7.35-7.45) ABG pCO2 (35-45) mmHg ABG pO2 (83-108) mmHg ABG Total CO2 (19-24) mmol/L ABG O2 Saturation (94-97) % Sodium 132 L (137-145) mmol/L Carbon Dioxide (22-30) mmol/L BUN 23 H (9-20) mg/dL Creatinine 4.82 H (0.66-1.25) mg/dL POC Glucose (mg/dL) (75-99) mg/dL Plasma Lactic Acid Hilton (0.7-2.0) mmol/L Phosphorus (2.5-4.5) mg/dL Total Bilirubin (0.2-1.3) mg/dL AST (17-59) U/L Alkaline Phosphatase (38-126) U/L Troponin I 1.540 H* (0.000-0.034) ng/mL Albumin (3.5-5.0) g/dL 03/15/21 03/16/21 03/16/21 Range/Units 22:22 00:12 00:17 WBC (3.8-10.6) k/uL RBC (4.30-5.90) m/uL Hgb (13.0-17.5) gm/dL Hct (39.0-53.0) % MCV (80.0-100.0) fL MCHC (31.0-37.0) g/dL RDW (11.5-15.5) % Plt Count (150-450) k/uL Neutrophils # (1.3-7.7) k/uL Lymphocytes # (1.0-4.8) k/uL Lymphocytes # (Manual) (1.0-4.8) k/uL Monocytes # (0-1.0) k/uL PT (9.0-12.0) sec INR (<1.2) APTT (22.0-30.0) sec ABG pH (7.35-7.45) ABG pCO2 (35-45) mmHg ABG pO2 (83-108) mmHg ABG Total CO2 (19-24) mmol/L ABG O2 Saturation (94-97) % Sodium (137-145) mmol/L Carbon Dioxide (22-30) mmol/L BUN (9-20) mg/dL Creatinine (0.66-1.25) mg/dL POC Glucose (mg/dL) 65 L (75-99) mg/dL Plasma Lactic Acid Hitlon 2.4 H* (0.7-2.0) mmol/L Phosphorus (2.5-4.5) mg/dL Total Bilirubin (0.2-1.3) mg/dL AST (17-59) U/L Alkaline Phosphatase (38-126) U/L Troponin I 1.630 H* (0.000-0.034) ng/mL Albumin (3.5-5.0) g/dL 03/16/21 03/16/21 03/16/21 Range/Units 00:18 00:42 05:40 WBC 18.3 H (3.8-10.6) k/uL RBC (4.30-5.90) m/uL Hgb 12.6 L (13.0-17.5) gm/dL Hct (39.0-53.0) % MCV 102.8 H (80.0-100.0) fL MCHC 28.4 L (31.0-37.0) g/dL RDW 18.9 H (11.5-15.5) % Plt Count 137 L (150-450) k/uL Neutrophils # 15.2 H (1.3-7.7) k/uL Lymphocytes # 0.7 L (1.0-4.8) k/uL Lymphocytes # (Manual) (1.0-4.8) k/uL Monocytes # 1.5 H (0-1.0) k/uL PT (9.0-12.0) sec INR (<1.2) APTT (22.0-30.0) sec ABG pH 7.34 L (7.35-7.45) ABG pCO2 (35-45) mmHg ABG pO2 278 H (83-108) mmHg ABG Total CO2 (19-24) mmol/L ABG O2 Saturation 100.0 H (94-97) % Sodium (137-145) mmol/L Carbon Dioxide (22-30) mmol/L BUN (9-20) mg/dL Creatinine (0.66-1.25) mg/dL POC Glucose (mg/dL) 57 L (75-99) mg/dL Plasma Lactic Acid Hilton (0.7-2.0) mmol/L Phosphorus (2.5-4.5) mg/dL Total Bilirubin (0.2-1.3) mg/dL AST (17-59) U/L Alkaline Phosphatase (38-126) U/L Troponin I (0.000-0.034) ng/mL Albumin (3.5-5.0) g/dL 03/16/21 03/16/21 03/16/21 Range/Units 05:40 05:40 05:40 WBC (3.8-10.6) k/uL RBC (4.30-5.90) m/uL Hgb (13.0-17.5) gm/dL Hct (39.0-53.0) % MCV (80.0-100.0) fL MCHC (31.0-37.0) g/dL RDW (11.5-15.5) % Plt Count (150-450) k/uL Neutrophils # (1.3-7.7) k/uL Lymphocytes # (1.0-4.8) k/uL Lymphocytes # (Manual) (1.0-4.8) k/uL Monocytes # (0-1.0) k/uL PT (9.0-12.0) sec INR (<1.2) APTT >200.0 H* (22.0-30.0) sec ABG pH (7.35-7.45) ABG pCO2 (35-45) mmHg ABG pO2 (83-108) mmHg ABG Total CO2 (19-24) mmol/L ABG O2 Saturation (94-97) % Sodium (137-145) mmol/L Carbon Dioxide (22-30) mmol/L BUN (9-20) mg/dL Creatinine (0.66-1.25) mg/dL POC Glucose (mg/dL) (75-99) mg/dL Plasma Lactic Acid Hilton 2.8 H* (0.7-2.0) mmol/L Phosphorus (2.5-4.5) mg/dL Total Bilirubin (0.2-1.3) mg/dL AST (17-59) U/L Alkaline Phosphatase (38-126) U/L Troponin I 3.180 H* (0.000-0.034) ng/mL Albumin (3.5-5.0) g/dL 03/16/21 03/16/21 03/16/21 Range/Units 05:44 08:41 09:22 WBC (3.8-10.6) k/uL RBC (4.30-5.90) m/uL Hgb (13.0-17.5) gm/dL Hct (39.0-53.0) % MCV (80.0-100.0) fL MCHC (31.0-37.0) g/dL RDW (11.5-15.5) % Plt Count (150-450) k/uL Neutrophils # (1.3-7.7) k/uL Lymphocytes # (1.0-4.8) k/uL Lymphocytes # (Manual) (1.0-4.8) k/uL Monocytes # (0-1.0) k/uL PT (9.0-12.0) sec INR (<1.2) APTT (22.0-30.0) sec ABG pH (7.35-7.45) ABG pCO2 (35-45) mmHg ABG pO2 (83-108) mmHg ABG Total CO2 (19-24) mmol/L ABG O2 Saturation (94-97) % Sodium 132 L (137-145) mmol/L Carbon Dioxide 15 L (22-30) mmol/L BUN 22 H (9-20) mg/dL Creatinine 4.91 H (0.66-1.25) mg/dL POC Glucose (mg/dL) 65 L 65 L (75-99) mg/dL Plasma Lactic Acid Hilton (0.7-2.0) mmol/L Phosphorus 5.5 H (2.5-4.5) mg/dL Total Bilirubin 4.3 H (0.2-1.3) mg/dL AST 112 H (17-59) U/L Alkaline Phosphatase 241 H (38-126) U/L Troponin I (0.000-0.034) ng/mL Albumin 3.0 L (3.5-5.0) g/dL 03/16/21 03/16/21 Range/Units 09:45 11:50 WBC (3.8-10.6) k/uL RBC (4.30-5.90) m/uL Hgb (13.0-17.5) gm/dL Hct (39.0-53.0) % MCV (80.0-100.0) fL MCHC (31.0-37.0) g/dL RDW (11.5-15.5) % Plt Count (150-450) k/uL Neutrophils # (1.3-7.7) k/uL Lymphocytes # (1.0-4.8) k/uL Lymphocytes # (Manual) (1.0-4.8) k/uL Monocytes # (0-1.0) k/uL PT (9.0-12.0) sec INR (<1.2) APTT (22.0-30.0) sec ABG pH (7.35-7.45) ABG pCO2 (35-45) mmHg ABG pO2 (83-108) mmHg ABG Total CO2 (19-24) mmol/L ABG O2 Saturation (94-97) % Sodium (137-145) mmol/L Carbon Dioxide (22-30) mmol/L BUN (9-20) mg/dL Creatinine (0.66-1.25) mg/dL POC Glucose (mg/dL) 70 L (75-99) mg/dL Plasma Lactic Acid Hilton 2.9 H* (0.7-2.0) mmol/L Phosphorus (2.5-4.5) mg/dL Total Bilirubin (0.2-1.3) mg/dL AST (17-59) U/L Alkaline Phosphatase (38-126) U/L Troponin I (0.000-0.034) ng/mL Albumin (3.5-5.0) g/dL Assessment and Plan Assessment: 1. Postop day #5 left [id number] amputation 2. Altered mental status changes likely related to metabolic encephalopathy 3. Carotid stenosis 50-69% right ICA, per carotid ultrasound. 80% stenosis at the origin of the right ICA just over 50% left ICA per CT angiogram. 4. History of severe peripheral arterial disease 5. End-stage renal disease on hemodialysis 6. Diabetes mellitus Plan: 1. Agree with heparin drip, may transition to Eliquis 2. CT angiogram head and neck and carotid duplex reviewed 3. Daily dressing change as needed, continue with stump manager telecom 4. Recommend physical therapy 5. No indications for any acute vascular surgical intervention. Patient can follow-up outpatient for surveillance of carotid stenosis and/or discussion of outpatient intervention. The impression and plan of care has been dictated as directed. Dr. Cohu I performed a history and examination of this patient, discussed the same with the dictator. I agree with the dictator's note ,documented as a scribe. Any additional findings or plans will be noted.
--- NOTE | 2021-03-16 14:07 | PN ---
PROGRESS NOTE DATE OF SERVICE: 03/16/2021 REASON FOR FOLLOWUP: Possible pneumonia/sepsis. INTERVAL HISTORY: Patient is afebrile. The patient is currently in the ICU. The patient remains to be lethargic and is requiring pressor support on a BiPAP. No vomiting, diarrhea or any other changes reported by nursing staff. PHYSICAL EXAMINATION: Blood pressure 100/68, pulse of 114, temperature 99.1. He is 97% on BiPAP. General description is a middle aged male lying in bed in no distress. Respiratory system unlabored breathing, decreased breath sounds in the base. No wheeze. Heart S1, S2. Regular rate and rhythm. Abdomen soft, nontender. LABS: Lactic acid 2.9, white count up to 18.3. DIAGNOSTIC IMPRESSION AND PLAN: Patient with sudden change in his clinical condition concerning for sepsis, possible pneumonitis. The patient will be started on Zosyn. Blood cultures obtained yesterday. Those will be followed. Antibiotic adjusted further if needed. Continue supportive care. Family at the bedside. Questions answered. MMODL / IJN: [id number] /
[2021-03-16 14:08] VITALS: BMI 31.4
[2021-03-16] MEDS ORDERED: ASPIRIN 81 MG PO SCH (14:15)
[2021-03-16 14:22] LABS: Glucose,Whole Blood 67 mg/dL (75-99)
[2021-03-16] MEDS ORDERED: DEXTROSE 50% SYRINGE 50 ML IVP ONE (14:26)
--- NOTE | 2021-03-16 14:30 | P.PN ---
Objective - Vital Signs Vital signs: Vital Signs Temp 99.1 F 03/16/21 11:02 Pulse 115 H 03/16/21 13:00 Resp 18 03/16/21 13:00 BP 105/23 03/16/21 13:00 Pulse Ox 91 L 03/16/21 13:00 Intake & Output 03/15/21 03/16/21 03/16/21 18:59 06:59 18:59 Intake Total 8689.579 9160.863 1686.950 Output Total 400 100 Balance 6942.465 4693.863 1586.950 Weight 99.3 kg 99.3 kg Intake: IV 30 390 1190 .9NS 30 240 90 Cefepime 1 gm In Sodium 50 Chloride 0.9% 50 ml @ 12. 5 mls/hr IVPB HS [facility] Rx#: [id number] Sodium Chloride 0.9% 500 1000 ml 500 ml @ 999 mls/hr IV .Q31M [facility] Rx#:[id number] metroNIDAZOLE-NS PMX 500 100 100 mg In Saline 1 100ml.bag @ 100 mls/hr IVPB Q8HR [facility] Rx#:[id number] Intake, IV Titration 1013.481 968.863 496.950 Amount Heparin Sod,Pork in 0.45% 214.368 23.586 NaCl 25,000 unit In 0.45 % NaCl 1 250ml.bag @ 18 UNITS/KG/HR 16.329 mls/hr IV .[id number] [facility] Rx#: [id number] Norepinephrine 4 mg In 13.481 754.495 473.364 Sodium Chloride 0.9% 250 ml @ 0.05 MCG/KG/MIN 17. 282 mls/hr IV .[id number] [facility] Rx#:[id number] Sodium Chloride 0.9% 1, 1000 000 ml @ 999 mls/hr IV . Q1H1M [facility] Rx#:[id number] Hemodialysis 300 Output: Urine 0 0 Hemodialysis 400 100 ABP, PAP, CO, CI - Last Documented Arterial Blood Pressure 81/46 - Labs CBC & Chem 7: 03/16/21 05:40 03/16/21 10:15 Labs: Abnormal Lab Results - Last 24 Hours (Table) 03/15/21 03/15/21 03/15/21 Range/Units 13:00 13:52 19:34 WBC (3.8-10.6) k/uL Hgb (13.0-17.5) gm/dL MCV (80.0-100.0) fL MCHC (31.0-37.0) g/dL RDW (11.5-15.5) % Plt Count (150-450) k/uL Neutrophils # (1.3-7.7) k/uL Lymphocytes # (1.0-4.8) k/uL Lymphocytes # (Manual) 0.07 L (1.0-4.8) k/uL Monocytes # (0-1.0) k/uL APTT >200.0 H* (22.0-30.0) sec ABG pH 7.28 L (7.35-7.45) ABG pCO2 49 H (35-45) mmHg ABG pO2 80 L (83-108) mmHg ABG Total CO2 25 H (19-24) mmol/L ABG O2 Saturation (94-97) % Sodium (137-145) mmol/L Carbon Dioxide (22-30) mmol/L BUN (9-20) mg/dL Creatinine (0.66-1.25) mg/dL POC Glucose (mg/dL) (75-99) mg/dL Plasma Lactic Acid Hilton (0.7-2.0) mmol/L Phosphorus (2.5-4.5) mg/dL Total Bilirubin (0.2-1.3) mg/dL AST (17-59) U/L Alkaline Phosphatase (38-126) U/L Troponin I (0.000-0.034) ng/mL Albumin (3.5-5.0) g/dL 03/15/21 03/15/21 03/15/21 Range/Units 19:34 22:22 22:22 WBC (3.8-10.6) k/uL Hgb (13.0-17.5) gm/dL MCV (80.0-100.0) fL MCHC (31.0-37.0) g/dL RDW (11.5-15.5) % Plt Count (150-450) k/uL Neutrophils # (1.3-7.7) k/uL Lymphocytes # (1.0-4.8) k/uL Lymphocytes # (Manual) (1.0-4.8) k/uL Monocytes # (0-1.0) k/uL APTT (22.0-30.0) sec ABG pH (7.35-7.45) ABG pCO2 (35-45) mmHg ABG pO2 (83-108) mmHg ABG Total CO2 (19-24) mmol/L ABG O2 Saturation (94-97) % Sodium 132 L (137-145) mmol/L Carbon Dioxide (22-30) mmol/L BUN 23 H (9-20) mg/dL Creatinine 4.82 H (0.66-1.25) mg/dL POC Glucose (mg/dL) (75-99) mg/dL Plasma Lactic Acid Hilton 2.4 H* (0.7-2.0) mmol/L Phosphorus (2.5-4.5) mg/dL Total Bilirubin (0.2-1.3) mg/dL AST (17-59) U/L Alkaline Phosphatase (38-126) U/L Troponin I 1.540 H* (0.000-0.034) ng/mL Albumin (3.5-5.0) g/dL 03/16/21 03/16/21 03/16/21 Range/Units 00:12 00:17 00:18 WBC (3.8-10.6) k/uL Hgb (13.0-17.5) gm/dL MCV (80.0-100.0) fL MCHC (31.0-37.0) g/dL RDW (11.5-15.5) % Plt Count (150-450) k/uL Neutrophils # (1.3-7.7) k/uL Lymphocytes # (1.0-4.8) k/uL Lymphocytes # (Manual) (1.0-4.8) k/uL Monocytes # (0-1.0) k/uL APTT (22.0-30.0) sec ABG pH (7.35-7.45) ABG pCO2 (35-45) mmHg ABG pO2 (83-108) mmHg ABG Total CO2 (19-24) mmol/L ABG O2 Saturation (94-97) % Sodium (137-145) mmol/L Carbon Dioxide (22-30) mmol/L BUN (9-20) mg/dL Creatinine (0.66-1.25) mg/dL POC Glucose (mg/dL) 65 L 57 L (75-99) mg/dL Plasma Lactic Acid Hilton (0.7-2.0) mmol/L Phosphorus (2.5-4.5) mg/dL Total Bilirubin (0.2-1.3) mg/dL AST (17-59) U/L Alkaline Phosphatase (38-126) U/L Troponin I 1.630 H* (0.000-0.034) ng/mL Albumin (3.5-5.0) g/dL 03/16/21 03/16/21 03/16/21 Range/Units 00:42 05:40 05:40 WBC 18.3 H (3.8-10.6) k/uL Hgb 12.6 L (13.0-17.5) gm/dL MCV 102.8 H (80.0-100.0) fL MCHC 28.4 L (31.0-37.0) g/dL RDW 18.9 H (11.5-15.5) % Plt Count 137 L (150-450) k/uL Neutrophils # 15.2 H (1.3-7.7) k/uL Lymphocytes # 0.7 L (1.0-4.8) k/uL Lymphocytes # (Manual) (1.0-4.8) k/uL Monocytes # 1.5 H (0-1.0) k/uL APTT (22.0-30.0) sec ABG pH 7.34 L (7.35-7.45) ABG pCO2 (35-45) mmHg ABG pO2 278 H (83-108) mmHg ABG Total CO2 (19-24) mmol/L ABG O2 Saturation 100.0 H (94-97) % Sodium (137-145) mmol/L Carbon Dioxide (22-30) mmol/L BUN (9-20) mg/dL Creatinine (0.66-1.25) mg/dL POC Glucose (mg/dL) (75-99) mg/dL Plasma Lactic Acid Hilton (0.7-2.0) mmol/L Phosphorus (2.5-4.5) mg/dL Total Bilirubin (0.2-1.3) mg/dL AST (17-59) U/L Alkaline Phosphatase (38-126) U/L Troponin I 3.180 H* (0.000-0.034) ng/mL Albumin (3.5-5.0) g/dL 03/16/21 03/16/21 03/16/21 Range/Units 05:40 05:40 05:44 WBC (3.8-10.6) k/uL Hgb (13.0-17.5) gm/dL MCV (80.0-100.0) fL MCHC (31.0-37.0) g/dL RDW (11.5-15.5) % Plt Count (150-450) k/uL Neutrophils # (1.3-7.7) k/uL Lymphocytes # (1.0-4.8) k/uL Lymphocytes # (Manual) (1.0-4.8) k/uL Monocytes # (0-1.0) k/uL APTT >200.0 H* (22.0-30.0) sec ABG pH (7.35-7.45) ABG pCO2 (35-45) mmHg ABG pO2 (83-108) mmHg ABG Total CO2 (19-24) mmol/L ABG O2 Saturation (94-97) % Sodium 132 L (137-145) mmol/L Carbon Dioxide 15 L (22-30) mmol/L BUN 22 H (9-20) mg/dL Creatinine 4.91 H (0.66-1.25) mg/dL POC Glucose (mg/dL) (75-99) mg/dL Plasma Lactic Acid Hilton 2.8 H* (0.7-2.0) mmol/L Phosphorus 5.5 H (2.5-4.5) mg/dL Total Bilirubin 4.3 H (0.2-1.3) mg/dL AST 112 H (17-59) U/L Alkaline Phosphatase 241 H (38-126) U/L Troponin I (0.000-0.034) ng/mL Albumin 3.0 L (3.5-5.0) g/dL 03/16/21 03/16/21 03/16/21 Range/Units 08:41 09:22 09:45 WBC (3.8-10.6) k/uL Hgb (13.0-17.5) gm/dL MCV (80.0-100.0) fL MCHC (31.0-37.0) g/dL RDW (11.5-15.5) % Plt Count (150-450) k/uL Neutrophils # (1.3-7.7) k/uL Lymphocytes # (1.0-4.8) k/uL Lymphocytes # (Manual) (1.0-4.8) k/uL Monocytes # (0-1.0) k/uL APTT (22.0-30.0) sec ABG pH (7.35-7.45) ABG pCO2 (35-45) mmHg ABG pO2 (83-108) mmHg ABG Total CO2 (19-24) mmol/L ABG O2 Saturation (94-97) % Sodium (137-145) mmol/L Carbon Dioxide (22-30) mmol/L BUN (9-20) mg/dL Creatinine (0.66-1.25) mg/dL POC Glucose (mg/dL) 65 L 65 L (75-99) mg/dL Plasma Lactic Acid Hilton 2.9 H* (0.7-2.0) mmol/L Phosphorus (2.5-4.5) mg/dL Total Bilirubin (0.2-1.3) mg/dL AST (17-59) U/L Alkaline Phosphatase (38-126) U/L Troponin I (0.000-0.034) ng/mL Albumin (3.5-5.0) g/dL 03/16/21 03/16/21 03/16/21 Range/Units 11:50 12:41 13:39 WBC (3.8-10.6) k/uL Hgb (13.0-17.5) gm/dL MCV (80.0-100.0) fL MCHC (31.0-37.0) g/dL RDW (11.5-15.5) % Plt Count (150-450) k/uL Neutrophils # (1.3-7.7) k/uL Lymphocytes # (1.0-4.8) k/uL Lymphocytes # (Manual) (1.0-4.8) k/uL Monocytes # (0-1.0) k/uL APTT (22.0-30.0) sec ABG pH (7.35-7.45) ABG pCO2 (35-45) mmHg ABG pO2 (83-108) mmHg ABG Total CO2 (19-24) mmol/L ABG O2 Saturation (94-97) % Sodium (137-145) mmol/L Carbon Dioxide (22-30) mmol/L BUN (9-20) mg/dL Creatinine (0.66-1.25) mg/dL POC Glucose (mg/dL) 70 L 62 L 74 L (75-99) mg/dL Plasma Lactic Acid Hilton (0.7-2.0) mmol/L Phosphorus (2.5-4.5) mg/dL Total Bilirubin (0.2-1.3) mg/dL AST (17-59) U/L Alkaline Phosphatase (38-126) U/L Troponin I (0.000-0.034) ng/mL Albumin (3.5-5.0) g/dL Assessment and Plan Assessment: Patient is a 66-year-old male for history of end-stage renal disease on hemodialysis, diabetes mellitus type 2 on insulin, hypertension, coronary artery disease, and chronic left lower extremity wound who initially presented to the ER for worsening of his wound. Patient was admitted to the hospital and was seen and evaluated by multiple specialists. He ultimately underwent left-sided BKA on 03/11/[address] Macias. Echocardiogram-ejection fraction 30-35%, elevated right end-diastolic pressure, moderate valvular disease On 03/15, patient mental status was worsening and patient became hypotensive and subsequently transferred to the ICU for close monitoring. He was seen and evaluated by me this morning. He was on BiPAP. Nursing staff informed me that he is still requiring vasopressors. He was also noted to be in a wide complex tachycardia on the monitor and was started on amiodarone drip by cardiology. He was soaked up to the dialysis machine this morning and I advised the certified technician specialist not to remove any fluid and to discuss with the comic artist patient's current condition. Assessment and Plan of Care: Status post Left BKA on 03/11/21 secondary to Nonhealing left foot ulcer with infection Peripheral arterial disease -Postoperative care per vascular surgery -Antibiotic per ID Nonsustained V. tach Elevated troponin with possible non-STEMI versus demand/supply ischemia Right internal jugular vein and innominate vein DVT, noted on ultrasound of the right upper extremity -Currently on IV heparin and amiodarone drip. Cardiology following closely. Repeat limited echocardiogram ordered. Acute encephalopathy -Be secondary to CVA versus seizures vs hypercarbic respiratory failure -CT of the head showed increasing soft tissue density along the midline floor of the anterior cranial fossa, underlying thickening and irregularity of the bony calvarium floor and continuous new soft tissue fullness in the upper nasal cavity. -Above finding was discussed with neurology who recommended outpatient ENT and neurosurgery evaluation. Patient has history of meningioma in the past. -Ordered an ABG -He was given 1 dose of Plavix per neurology, we'll not renew as he will be on heparin. Insulin-dependent diabetes mellitus with recent hypoglycemia -Patient continues to have intermittent episodes of hypoglycemia. -We will discontinue D5 infusion secondary to high risk of fluid overload and monitor blood glucose levels more closely, Q4 hours. -Continue glycemic protocol with D5 as needed for hypoglycemia. -Encourage pt's oral intake. End-stage renal disease on hemodialysis Monday, , and Monday -Nephrology Following, ordered for patient to continue dialysis Tuesdays, , and Monday. -Continue Sodium bicarb and Renvela -On Midodrine for chronic hypotension Hyponatremia secondary to end-stage renal disease and daily diuretic use, stable Systolic congestive heart failure with ejection fraction 30-35%, ischemic, chronic and currently compensated Coronary artery disease status post CABG 5 Hypertension Dyslipidemia Aortic stenosis -Cardiology following, appreciate recommendations. -Continue with aspirin, Lipitor -Lasix -Metoprolol Lactic acidosis, resolved DVT prophylaxis: Heparin Discussed with: Patient and RN Anticipated discharge: clinical course to determine Anticipated discharge place: [facility] A total of 45 minutes was spent on the care of this complex patient more than 50% of the time was spent in counseling and care
[2021-03-16 14:55] LABS: Glucose,Whole Blood 92 mg/dL (75-99)
[2021-03-16] MEDS ORDERED: ACETAMINOPHEN IV (For NPO) 1,000 MG in EMPTY BAG 1 BAG IVPB PRN (15:29)
--- NOTE | 2021-03-16 15:40 | P.PN ---
Subjective Progress Note Date: 03/16/21 Patient was seen for a follow-up. Patient has BiPAP going on. Patient's daughter and ex- were also present. Patient is more awake, and according to patient's family, nods appropriately yes or no. He is more alert. He tries to speak, but not quite get it out. Patient had undergone hemodialysis today. No new focal symptoms. Results of CT/CTA: * Computed tomography scan of head showed similar bifrontal craniotomy flaps with underlying bifrontal encephalomalacia. No acute intracranial process. However there is increase in soft tissue density along the midline floor of anterior cranial fossa, underlying thickening and irregularity of the bony calvarial floor, and continuous new soft tissue fullness in the upper nasal cavity. Consider ENT referral to exclude a mass at this site. Rule out plasmacytoma or lymphoma. Alternatively, there could be recurrent neoplasm given patient's history of prior brain tumor removal. Correlate with previous pathology. * CTA of neck showed moderate to large left and small right pleural effusions with adjacent atelectasis. Cardiomegaly, pulmonary artery hypertension and post CABG changes correlate for possible CHF. Heterogenous thyroid gland. A 1.4 cm enhancing nodule on the right thyroid ultrasound. Right vertebral ar karen takeoff is not seen. 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 Possible moderate atherosclerotic narrowing at the origin of the left vertebral artery. Mild atherosclerotic narrowing proximal right common carotid artery followed by a severe focal 80% stenosis at the origin of the right ICA. Mild atherosclerotic narrowing proximal left common carotid artery followed by a moderate just over 50% stenosis upper left carotid bulb. * CTA of the head showed moderate focal atherosclerotic stenosis clinoid and supraclinoid right ICA as well as supraclinoid left ICA. The V4 segment right vertebral artery is not seen. The hypoplastic vessel may terminate as a PICA branch. Moderate atherosclerotic stenosis proximal to mid V4 segment left vertebral artery. No definitive evidence of carotid cavernous fistula. Superior ophthalmic venous engorgement may be due to elevated intracranial pressures. Severe left-sided paranasal sinus disease possibly secondary to obstruction cause by suspected mass along the midline floor of the anterior cranial fossa. Objective - Vital Signs Vital signs: Vital Signs Temp 99.1 F 03/16/21 11:02 Pulse 124 H 03/16/21 14:30 Resp 26 H 03/16/21 14:30 BP 116/70 03/16/21 14:30 Pulse Ox 97 03/16/21 14:30 Intake & Output 03/15/21 03/16/21 03/16/21 18:59 06:59 18:59 Intake Total 6689.555 8996.863 1742.994 Output Total 400 100 Balance 2229.607 7153.863 1642.994 Weight 99.3 kg 99.3 kg Intake: IV 30 390 1210 .9NS 30 240 110 Cefepime 1 gm In Sodium 50 Chloride 0.9% 50 ml @ 12. 5 mls/hr IVPB HS [facility] Rx#: [id number] Sodium Chloride 0.9% 500 1000 ml 500 ml @ 999 mls/hr IV .Q31M ONE Rx#:[id number] metroNIDAZOLE-NS PMX 500 100 100 mg In Saline 1 100ml.bag @ 100 mls/hr IVPB Q8HR [facility] Rx#:[id number] Intake, IV Titration 1013.481 968.863 532.994 Amount Heparin Sod,Pork in 0.45% 214.368 23.586 NaCl 25,000 unit In 0.45 % NaCl 1 250ml.bag @ 18 UNITS/KG/HR 16.329 mls/hr IV .[id number] [facility] Rx#: [id number] Norepinephrine 32 mg In 36.044 Sodium Chloride 0.9% 218 ml @ 0.05 MCG/KG/MIN 2. 327 mls/hr IV .Q24H [facility] Rx#:[id number] Norepinephrine 4 mg In 13.481 754.495 473.364 Sodium Chloride 0.9% 250 ml @ 0.05 MCG/KG/MIN 17. 282 mls/hr IV .[id number] [facility] Rx#:[id number] Sodium Chloride 0.9% 1, 1000 000 ml @ 999 mls/hr IV . Q1H1M [facility] Rx#:[id number] Hemodialysis 300 Output: Urine 0 0 Hemodialysis 400 100 Other: # Bowel Movements 0 ABP, PAP, CO, CI - Last Documented Arterial Blood Pressure 81/46 - Exam Patient is much more alert and awake. Still with slow mentation. Patient was able to name Pen, eyeglasses. Pupils are round and reacting. Extraocular muscles are intact. Face is symmetric. Patient's speech is hoarse, but no obvious aphasia. He does slur speech. Patient complaining of left arm pain. Detailed testing could not be performed. Patient was able to squeeze hands almost equally, right side slightly weaker (not new, for last 2 months). Patient's biceps appears normal. No obvious pronator drift. Patient then got tired, did not cooperate with the rest of the examination. - Labs CBC & Chem 7: 03/16/21 05:40 03/16/21 10:15 Labs: Abnormal Lab Results - Last 24 Hours (Table) 03/15/21 03/15/21 03/15/21 Range/Units 19:34 19:34 22:22 WBC (3.8-10.6) k/uL Hgb (13.0-17.5) gm/dL MCV (80.0-100.0) fL MCHC (31.0-37.0) g/dL RDW (11.5-15.5) % Plt Count (150-450) k/uL Neutrophils # (1.3-7.7) k/uL Lymphocytes # (1.0-4.8) k/uL Monocytes # (0-1.0) k/uL APTT >200.0 H* (22.0-30.0) sec ABG pH (7.35-7.45) ABG pO2 (83-108) mmHg ABG O2 Saturation (94-97) % Sodium 132 L (137-145) mmol/L Carbon Dioxide (22-30) mmol/L BUN 23 H (9-20) mg/dL Creatinine 4.82 H (0.66-1.25) mg/dL POC Glucose (mg/dL) (75-99) mg/dL Plasma Lactic Acid Hilton (0.7-2.0) mmol/L Phosphorus (2.5-4.5) mg/dL Total Bilirubin (0.2-1.3) mg/dL AST (17-59) U/L Alkaline Phosphatase (38-126) U/L Troponin I 1.540 H* (0.000-0.034) ng/mL Albumin (3.5-5.0) g/dL 03/15/21 03/16/21 03/16/21 Range/Units 22:22 00:12 00:17 WBC (3.8-10.6) k/uL Hgb (13.0-17.5) gm/dL MCV (80.0-100.0) fL MCHC (31.0-37.0) g/dL RDW (11.5-15.5) % Plt Count (150-450) k/uL Neutrophils # (1.3-7.7) k/uL Lymphocytes # (1.0-4.8) k/uL Monocytes # (0-1.0) k/uL APTT (22.0-30.0) sec ABG pH (7.35-7.45) ABG pO2 (83-108) mmHg ABG O2 Saturation (94-97) % Sodium (137-145) mmol/L Carbon Dioxide (22-30) mmol/L BUN (9-20) mg/dL Creatinine (0.66-1.25) mg/dL POC Glucose (mg/dL) 65 L (75-99) mg/dL Plasma Lactic Acid Hilton 2.4 H* (0.7-2.0) mmol/L Phosphorus (2.5-4.5) mg/dL Total Bilirubin (0.2-1.3) mg/dL AST (17-59) U/L Alkaline Phosphatase (38-126) U/L Troponin I 1.630 H* (0.000-0.034) ng/mL Albumin (3.5-5.0) g/dL 03/16/21 03/16/21 03/16/21 Range/Units 00:18 00:42 05:40 WBC 18.3 H (3.8-10.6) k/uL Hgb 12.6 L (13.0-17.5) gm/dL MCV 102.8 H (80.0-100.0) fL MCHC 28.4 L (31.0-37.0) g/dL RDW 18.9 H (11.5-15.5) % Plt Count 137 L (150-450) k/uL Neutrophils # 15.2 H (1.3-7.7) k/uL Lymphocytes # 0.7 L (1.0-4.8) k/uL Monocytes # 1.5 H (0-1.0) k/uL APTT (22.0-30.0) sec ABG pH 7.34 L (7.35-7.45) ABG pO2 278 H (83-108) mmHg ABG O2 Saturation 100.0 H (94-97) % Sodium (137-145) mmol/L Carbon Dioxide (22-30) mmol/L BUN (9-20) mg/dL Creatinine (0.66-1.25) mg/dL POC Glucose (mg/dL) 57 L (75-99) mg/dL Plasma Lactic Acid Hilton (0.7-2.0) mmol/L Phosphorus (2.5-4.5) mg/dL Total Bilirubin (0.2-1.3) mg/dL AST (17-59) U/L Alkaline Phosphatase (38-126) U/L Troponin I (0.000-0.034) ng/mL Albumin (3.5-5.0) g/dL 03/16/21 03/16/21 03/16/21 Range/Units 05:40 05:40 05:40 WBC (3.8-10.6) k/uL Hgb (13.0-17.5) gm/dL MCV (80.0-100.0) fL MCHC (31.0-37.0) g/dL RDW (11.5-15.5) % Plt Count (150-450) k/uL Neutrophils # (1.3-7.7) k/uL Lymphocytes # (1.0-4.8) k/uL Monocytes # (0-1.0) k/uL APTT >200.0 H* (22.0-30.0) sec ABG pH (7.35-7.45) ABG pO2 (83-108) mmHg ABG O2 Saturation (94-97) % Sodium (137-145) mmol/L Carbon Dioxide (22-30) mmol/L BUN (9-20) mg/dL Creatinine (0.66-1.25) mg/dL POC Glucose (mg/dL) (75-99) mg/dL Plasma Lactic Acid Hilton 2.8 H* (0.7-2.0) mmol/L Phosphorus (2.5-4.5) mg/dL Total Bilirubin (0.2-1.3) mg/dL AST (17-59) U/L Alkaline Phosphatase (38-126) U/L Troponin I 3.180 H* (0.000-0.034) ng/mL Albumin (3.5-5.0) g/dL 03/16/21 03/16/21 03/16/21 Range/Units 05:44 08:41 09:22 WBC (3.8-10.6) k/uL Hgb (13.0-17.5) gm/dL MCV (80.0-100.0) fL MCHC (31.0-37.0) g/dL RDW (11.5-15.5) % Plt Count (150-450) k/uL Neutrophils # (1.3-7.7) k/uL Lymphocytes # (1.0-4.8) k/uL Monocytes # (0-1.0) k/uL APTT (22.0-30.0) sec ABG pH (7.35-7.45) ABG pO2 (83-108) mmHg ABG O2 Saturation (94-97) % Sodium 132 L (137-145) mmol/L Carbon Dioxide 15 L (22-30) mmol/L BUN 22 H (9-20) mg/dL Creatinine 4.91 H (0.66-1.25) mg/dL POC Glucose (mg/dL) 65 L 65 L (75-99) mg/dL Plasma Lactic Acid Hilton (0.7-2.0) mmol/L Phosphorus 5.5 H (2.5-4.5) mg/dL Total Bilirubin 4.3 H (0.2-1.3) mg/dL AST 112 H (17-59) U/L Alkaline Phosphatase 241 H (38-126) U/L Troponin I (0.000-0.034) ng/mL Albumin 3.0 L (3.5-5.0) g/dL 03/16/21 03/16/21 03/16/21 Range/Units 09:45 11:50 12:41 WBC (3.8-10.6) k/uL Hgb (13.0-17.5) gm/dL MCV (80.0-100.0) fL MCHC (31.0-37.0) g/dL RDW (11.5-15.5) % Plt Count (150-450) k/uL Neutrophils # (1.3-7.7) k/uL Lymphocytes # (1.0-4.8) k/uL Monocytes # (0-1.0) k/uL APTT (22.0-30.0) sec ABG pH (7.35-7.45) ABG pO2 (83-108) mmHg ABG O2 Saturation (94-97) % Sodium (137-145) mmol/L Carbon Dioxide (22-30) mmol/L BUN (9-20) mg/dL Creatinine (0.66-1.25) mg/dL POC Glucose (mg/dL) 70 L 62 L (75-99) mg/dL Plasma Lactic Acid Hilton 2.9 H* (0.7-2.0) mmol/L Phosphorus (2.5-4.5) mg/dL Total Bilirubin (0.2-1.3) mg/dL AST (17-59) U/L Alkaline Phosphatase (38-126) U/L Troponin I (0.000-0.034) ng/mL Albumin (3.5-5.0) g/dL 03/16/21 03/16/21 03/16/21 Range/Units 13:39 14:19 14:23 WBC (3.8-10.6) k/uL Hgb (13.0-17.5) gm/dL MCV (80.0-100.0) fL MCHC (31.0-37.0) g/dL RDW (11.5-15.5) % Plt Count (150-450) k/uL Neutrophils # (1.3-7.7) k/uL Lymphocytes # (1.0-4.8) k/uL Monocytes # (0-1.0) k/uL APTT (22.0-30.0) sec ABG pH (7.35-7.45) ABG pO2 (83-108) mmHg ABG O2 Saturation (94-97) % Sodium (137-145) mmol/L Carbon Dioxide (22-30) mmol/L BUN (9-20) mg/dL Creatinine (0.66-1.25) mg/dL POC Glucose (mg/dL) 74 L 67 L (75-99) mg/dL Plasma Lactic Acid Hilton 6.4 H* (0.7-2.0) mmol/L Phosphorus (2.5-4.5) mg/dL Total Bilirubin (0.2-1.3) mg/dL AST (17-59) U/L Alkaline Phosphatase (38-126) U/L Troponin I (0.000-0.034) ng/mL Albumin (3.5-5.0) g/dL Assessment and Plan Assessment: * Acute altered mental status, with decreased responsiveness. Exam is significant for some fluctuating mental status, suggestive of toxic metabolic encephalopathy. Limited examination is relatively nonfocal. CVA appears much less likely. * Acute DVT right upper extremity involving the right internal jugular vein and innominate vein. * Acute non-STEMI versus demand/supply ischemia. Elevated troponin. * Hypotension, which can make encephalopathy worse. 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 * Right ICA stenosis 80% as per CTA of head and neck. Patient also has significant atherosclerotic cerebrovascular disease in general. Carotid Dopp ler revealed 50-69% stenosis right ICA. 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 Current computed tomography scan of the head shows probable recurrence of the tumor as compared to computed tomography scan of head from 05/15/2016 (on my review, almost 2 cm now as compared to 1.1 cm previously). * ESRD on hemodialysis * Acute exacerbation of systolic CHF * Diabetes, well controlled, last A1c 5.5 on 01/13/2021. (Previous A1c maximum 10.6 on 05/17/2016) * CAD with history of CABG in the past. * Light smoking history Plan: * Patient's limited examination is relatively nonfocal. Patient is clinically much better. More alert and awake and following commands, speaking short sentences. * Resume aspirin 81 mg daily and continue Lipitor. If cannot take aspirin orally, then would recommend rectal aspirin. Patient's family does not want him to have aspirin rectally for discomfort reasons. Plavix stopped, as patient is also on high dose anticoagulation for DVT. * Continue high-dose statins Lipitor 80 mg daily. * For DVT right upper extremity patient has been started on high-dose heparin. * Await MRI of the brain to evaluate for CVA, MRA of head to evaluate for intracranial vascular status. * ABG showed pH of 7.34, pCO2 42, pO2 was 78 and saturation 100%. * Stat EEG showed background slowing of moderate to severe degree. Consistent with positive metabolic encephalopathy or from diffuse structural brain abnormality. No epileptiform activity was seen. * Suggest ENT consultation for olfactory groove meningioma, which appears to have be larger in size as compared to the previous CT from 05/15/2016. ENT recommended by radiologist. * Vascular surgery on board for ICA stenosis. * Discontinue Lyrica because of significant altered mental status, and lethargy. * Discussed with patient's ex- and daughter in detail.
[2021-03-16 15:41] LABS: Glucose,Whole Blood 69 mg/dL (75-99)
[2021-03-16] MEDS ORDERED: LORazepam 2 MG/ML INJ IV PRN (17:23)
[2021-03-16] MEDS ORDERED: MORPHINE SULFATE (100 MG/2 ML) 100 MG in SODIUM CHLORIDE 0.9% 100 ML IV SCH (17:30)
[2021-03-16] MEDS: MORPHINE SULFATE 4 MG/ML SYRINGE IV PRN (17:38)
[2021-03-16] MEDS ORDERED: MORPHINE SULFATE 4 MG/ML SYRINGE IV PRN (17:39)
[2021-03-16 18:19] VITALS: PULSE 115
[2021-03-16 19:19] VITALS: BP 80/50; RESP 16
--- NOTE | 2021-03-18 07:50 | P.DS ---
Providers Date of admission: 03/08/21 15:46 Expected date of discharge: 03/18/21 Attending physician: Marry Cleaning MD Consults: 03/08/21 15:30 Consult Physician Urgent Consulting Provider: Tino Larios Consult Reason/Comments: Left foot wound, failed outpatient treatment Do you want consulting provider notified?: Yes 03/08/21 15:31 Consult Physician Urgent Consulting Provider: Reyna Macias Consult Reason/Comments: Worsening left foot wound Do you want consulting provider notified?: Yes 03/08/21 15:32 Consult Physician Urgent Consulting Provider: Juanjo Vidal Consult Reason/Comments: Dialysis patient Do you want consulting provider notified?: Yes 03/10/21 13:11 Consult Physician Urgent Consulting Provider: José Miguel Renteria Consult Reason/Comments: cardiac clearance for Left BKA Do you want consulting provider notified?: Yes 03/15/21 10:01 Consult Physician Routine Consulting Provider: Lakeshia Figueroa Consult Reason/Comments: altered mental status Do you want consulting provider notified?: Yes 03/15/21 21:04 Consult Physician Stat Consulting Provider: Daniel Euceda Consult Reason/Comments: non-sustaining v-tach Do you want consulting provider notified?: Already Contacted Primary care physician: Wilian Zhang MD Hospital Course: Discharge Diagnosis: Status post Left BKA on 03/11/21 secondary to Nonhealing left foot ulcer with infection Peripheral arterial disease Nonsustained V. tach Elevated troponin with possible non-STEMI versus demand/supply ischemia Insulin-dependent diabetes mellitus with recent hypoglycemia End-stage renal disease on hemodialysis Monday, , and Monday Hyponatremia secondary to end-stage renal disease and daily diuretic use, stable Systolic congestive heart failure with ejection fraction 30-35%, ischemic, chronic and currently compensated Coronary artery disease status post CABG 5 Hypertension Dyslipidemia Aortic stenosis Lactic acidosis, resolved Right IJ DVT Acute encephalopathy, unknown if toxic or metabolic Hospital Course: Patient is a 66-year-old male for history of end-stage renal disease on hemodialysis, diabetes mellitus type 2 on insulin, hypertension, coronary artery disease, and chronic left lower extremity wound who initially presented to the ER for worsening of his wound. He had undergone a left foot debridement with wound VAC placement requiring hospitalization from 02/19 through 02/27 and completed a dose of oral antibiotics. He was seen at the wound care clinic on 03/08 were felt that his wound was reinfected and he was told to proceed to the emergency department. Patient was seen and evaluated by wound care, Dr. Larios, and Dr. Macias. He ultimately underwent left-sided BKA on 03/11. Patient had been progressing well up until 03/15/21 when he became significantly confused and had an A-team called. At that point in time he underwent a head CT which was negative. He underwent a CTA of the head which showed multiple findings including prominent opacification the bilateral ophthalmic veins, moderate focal atherosclerotic disease in the carotids, and heterogeneous thyroid gland. He then underwent an ultrasound of the neck which demonstrated a right IJ DVT. He underwent an EEG which showed background slowing of moderate to severe degree suggestive of encephalopathy. Neurology was consulted and felt his mentation was likely secondary to encephalopathy. They noted recurrence of his meningioma that was resected 12 years ago. He was also noted to have an elevated troponin consistent with a non-STEMI likely secondary to his known severe coronary artery disease with bypass grafting and possible sepsis. Cardiology recommended a 2-D echocardiogram. He had a central line placed on 03/15 an arterial line placed on 03/16. He also been placed on amiodarone secondary to recurrent nonsustained V. tach. Patient was subsequently transitioned to comfort measures and was taken off of BiPAP therapy. He in the presence of his family. I did not physically speak with her examined the patient on date of expiration. I helped with documentation of dishcarge summary. Patient Condition at Discharge: Stable Plan - Discharge Summary Discharge Rx Participant: Yes New Discharge Prescriptions: No Action allopurinoL [Zyloprim] 100 mg PO DAILY@0800 Metoprolol Succinate [Toprol XL] 25 mg PO DAILY Clopidogrel [Plavix] 75 mg PO HS Aspirin 81 mg PO SUMOWEFR Midodrine [ProAmatine] 10 mg PO AC-TID PRN tab PRN Reason: Hypotension Pregabalin [Lyrica] 25 mg PO DAILY@0800 #3 cap Nepro-Mio 1 tab PO HS Furosemide [Lasix] 20 mg PO DAILY Potassium Chloride 10 meq PO DAILY metroNIDAZOLE [Flagyl] 500 mg PO TID 42 Days #126 tab FLUoxetine HCL [PROzac] 20 mg PO DAILY@0800 Sevelamer [Renvela] 1,600 mg PO AC-TID@08,, Sodium Bicarbonate Tab 650 mg PO BID@0800,1700 glipiZIDE [Glucotrol XL] 2.5 mg PO DAILY Atorvastatin [Lipitor] 80 mg PO HS tab HYDROcodone/APAP 5-325MG [[place] 5-325] 1 tab PO Q6HR PRN #12 tab PRN Reason: Pain rOPINIRole HCL [Requip] 1 mg PO HS Ciprofloxacin HCl 500 mg PO DAILY 42 Days #42 tab DAPTOmycin [Cubicin] 550 mg IVPB Q48H each Discharge Medication List allopurinoL [Zyloprim] 100 mg PO DAILY@0800 05/16/16 [History] FLUoxetine HCL [PROzac] 20 mg PO DAILY@0800 09/15/20 [History] Metoprolol Succinate [Toprol XL] 25 mg PO DAILY 09/15/20 [History] Aspirin 81 mg PO SUMOWEFR 10/14/20 [History] Clopidogrel [Plavix] 75 mg PO HS 10/14/20 [History] Sevelamer [Renvela] 1,600 mg PO AC-TID@,,10/14/20 [History] Sodium Bicarbonate Tab 650 mg PO BID@0800,1700 10/14/20 [History] glipiZIDE [Glucotrol XL] 2.5 mg PO DAILY 10/14/20 [History] Atorvastatin [Lipitor] 80 mg PO HS tab 10/19/20 [Rx] HYDROcodone/APAP 5-325MG [[place] 5-325] 1 tab PO Q6HR PRN #12 tab 10/19/20 [Rx] Midodrine [ProAmatine] 10 mg PO AC-TID PRN tab 10/19/20 [Rx] Pregabalin [Lyrica] 25 mg PO DAILY@0800 #3 cap 10/19/20 [Rx] Furosemide [Lasix] 20 mg PO DAILY 02/19/21 [History] Nepro-Mio 1 tab PO HS 02/19/21 [History] Potassium Chloride 10 meq PO DAILY 02/19/21 [History] rOPINIRole HCL [Requip] 1 mg PO HS 02/19/21 [History] Ciprofloxacin HCl 500 mg PO DAILY 42 Days #42 tab 02/27/21 [Rx] DAPTOmycin [Cubicin] 550 mg IVPB Q48H each 02/27/21 [Rx] metroNIDAZOLE [Flagyl] 500 mg PO TID 42 Days #126 tab 02/27/21 [Rx] Follow up Appointment(s)/Referral(s): Wilian Zhang MD [Primary Care Provider] - 1-2 days [facility] [NON-STAFF] - As Needed José Miguel Renteria MD [STAFF PHYSICIAN] - 2 Weeks Discharge Disposition: - Preliminary Cause of Preliminary Cause of : NSTEMI
--- NOTE | 2021-03-18 10:36 | ECHOF ---
Referral Reason:assess valves, heart MEASUREMENTS -------- HEIGHT: 177.8 cm WEIGHT: 98.9 kg BP: 97/55 RVIDd: 4.3 cm (< 3.3) AV maxP.32 mmHg AV meanP.06 mmHg RAP: 15.00 mmHg RVSP: 52.89 mmHg FINDINGS -------- Limited Study Overall left ventricular systolic function is severely impaired with, an EF between 20 - 25 %. There is moderate aortic valve sclerosis. There is moderate aortic stenosis present. Peak/mean gr adient across the Aortic Valve is 24.32mmHg / 14.06mmHg. The mitral valve leaflets are mildly thickened. Mild mitral annular calcification present. Mild m itral regurgitation is present. The peak and mean MV gradients are 13.29mmHg 3.30mmHg as measured by doppler. Mild tricuspid regurgitation present. There is moderate pulmonary hypertension. The right ventric ular systolic pressure, as measured by Doppler, is 52.89mmHg. There is no pulmonic regurgitation present. The inferior vena cava is dilated with poor inspiratory collapse which is consistent with estimated r ight atrial pressure of 15 mmHg. There is no pericardial effusion. CONCLUSIONS -------- 1. Overall left ventricular systolic function is severely impaired with, an EF between 20 - 25 %. 2. There is moderate aortic valve sclerosis. 3. There is moderate aortic stenosis present. 4. Peak/mean gradient across the Aortic Valve is 24.32mmHg / 14.06mmHg. 5. The mitral valve leaflets are mildly thickened. 6. Mild mitral annular calcification present. 7. Mild mitral regurgitation is present. 8. The peak and mean MV gradients are 13.29mmHg 3.30mmHg as measured by doppler. 9. Mild tricuspid regurgitation present. 10. There is moderate pulmonary hypertension. 11. The right ventricular systolic pressure, as measured by Doppler, is 52.89mmHg. 12. The inferior vena cava is dilated with poor inspiratory collapse which is consistent with estimat ed right atrial pressure of 15 mmHg. 13. There is no pericardial effusion. OBSTETRICS GYN PHYSICIAN: Ana Walker RDCS
--- NOTE | 2021-03-19 13:01 | CDI ---
Documentation Clarification Form Mortality Query Date: 03/19/2021 12:35:25 PM From: Vandana Escobar RN, CCDS Admit Date: 03/08/2021 03:46:00 PM Patient Name: Yoshi Rodrigues Visit Number: [id number] Discharge Date: 03/16/2021 11:05:00 PM ATTENTION: The Clinical Documentation Specialists (CDI) and [facility] Coding Staff appreciate your assistance in clarifying documentation. Please respond to the clarification below the line at the bottom and electronically sign. The CDI & [facility] Coding staff will review the response and follow-up if needed. Please note: Queries are made part of the Legal Health Record. If you have any questions, please contact the author of this message via ITS. Dr. Libia Mckeon Possible Pneumonia is documented in multiple consulting MD progress notes from 03/14-03/16.Additional clarification regarding if pneumonia was ruled in or out and the type of pneumonia is requested. History/Risk Factors: S/p Left BKA this admission, ESRD on HD, HTN, HLD, CAD, RLS, Left lower extremity infection with osteomyelitis Clinical Indicators: 03/14 Nephrology Progress Note: "Febrile rule out pneumonia rule out urinary tract infection or stump infection." 03/14-03/16 Cardiology Progress Note: "Chest x-ray this morning showed correlate for possible pulmonary venous hypertension and interstitial edema, there is likely left pleural effusion, pneumonia cannot be excluded." 03/16 ID: "Possible pneumonia/sepsis." 03/08-03/16 WBC; 7.2/8.29/7.5/7.6/7.1/7.5/6.8/18.3 03/08-03/16 Left shift: 6/6.14/15.2 03/14 CXR: "Correlate for possible pulmonary venous hypertension and interstitial edema, there is likely left pleural effusion, pneumonia not excluded." 03/14 Attending UNDERCOVER OPERATOR Lung/Breathing assessment: "Lungs: Decreased breath sounds bilateral, no rhonchi, no rales, no accessory muscle use." Treatment: 03/08-03/15 Cefepime 1 gm IVPB Q HS 03/06-03/14 Daptomycin 550mg IVPB Q 24 hrs. 03/16 Zosyn 3.375 MG IVPB q 12hrs O2: room air, increased to 2L, increased to 4Lin creased to 6L, Placed on 40% Bipap, increased to 50%, then 100% FIO2 Breathing Tx: none ordered Please clarify if the pneumonia was ruled in or out at the time of D/C and type of pneumonia, if known and present: [ X ] Pneumonia ruled in (not POA) [ ] Pneumonia has been ruled out [ ] Unable to Determine If present please also specify type if known [ ] Aspiration Pneumonia, Due to food or vomitus [ ] Bacterial Pneumonia, specify causal organism (if known) [ ] Gram Negative Bacterial Pneumonia [ ] Other, please specify [ ] Unable to determine (Template Last Revised: July 2020) MTDD
--- NOTE | 2021-03-19 13:27 | CDI ---
Documentation Clarification Form Mortality Query Date: 03/19/2021 01:23:08 PM From: Vandana Escobar RN, CCDS Admit Date: 03/08/2021 03:46:00 PM Patient Name: Yoshi Rodrigues Visit Number: [id number] Discharge Date: 03/16/2021 11:05:00 PM ATTENTION: The Clinical Documentation Specialists (CDI) and [facility] Coding Staff appreciate your assistance in clarifying documentation. Please respond to the clarification below the line at the bottom and electronically sign. The CDI & [facility] Coding staff will review the response and follow-up if needed. Please note: Queries are made part of the Legal Health Record. If you have any questions, please contact the author of this message via ITS. Dr. Tucker Your patient has hypercarbic respiratory failure on 03/16. Based on this information and the findings below, is there an additional diagnosis that is clinically appropriate for this patient? History/Risk Factors: Possible sepsis and NSTEMI documented this admission, Aortic Stenosis, Chronic Systolic CHF, DM2, GERD, ESRD on HD Tobacco use: former smoker Home oxygen: none Clinical Indicators: 03/16 Attending (Salvatore) Progress Note: "-Be secondary to CVA versus seizures vs hypercarbic respiratory failure -CT of the head showed increasing soft tissue density along the midline floor of the anterior cranial fossa, underlying thickening and irregularity of the bony calvarium floor and continuous new soft tissue fullness in the upper nasal cavity. 03/16 0400 Vital signs: Temp 99.6, HR 102, RR 17, B/P 95/59, CVP 11, Spo2 94% on 50% BiPap 03/16 Pulse oximetry: 94-100% on BiPap with RR 18-31 03/16 Pulmonary Lung/Breathing assessment: PULMONARY: Mild increase in respiratory rate." 03/15 ABG/CBG: pH 7.28 pCo2 49 pO2 80 HCO3 23 Total CO2 25 O2 sat 95.1 Base Excess -3.4 FIO2 32 Treatment: Continuous Pulse ox: per ICU protocol O2: room air, increased to 2L, increased to 4Lin creased to 6L, Placed on 40% BiPap, increased to 50%, then 100% FIO2 Breathing Tx: none ordered Is there an additional diagnosis that is clinically appropriate for this patient? [ X ] Acute Hypoxic Respiratory Failure (pO2 <60 mm Hg or SpO2 <91% on room air) [ ] Acute Hypercapnic Respiratory Failure (pCO2 >50 and pH <7.35) [ ] Other Diagnosis, please specify [ ] Unable to determine (Template Last Revised: July 2020) MTDD
--- NOTE | 2021-03-19 14:11 | CDI ---
Documentation Clarification Form Mortality Query Date: 03/19/2021 01:33:21 PM From: Vandana Escobar RN, CCDS Admit Date: 03/08/2021 03:46:00 PM Patient Name: Yoshi Rodrigues Visit Number: [id number] Discharge Date: 03/16/2021 11:05:00 PM ATTENTION: The Clinical Documentation Specialists (CDI) and [facility] Coding Staff appreciate your assistance in clarifying documentation. Please respond to the clarification below the line at the bottom and electronically sign. The CDI & [facility] Coding staff will review the response and follow-up if needed. Please note: Queries are made part of the Legal Health Record. If you have any questions, please contact the author of this message via ITS. Dr. Libia Mckeon Atrial Fibrillation is documented in a single Nephrology Progress 03/16. Additional clarification regarding the type and presence of atrial fibrillation is requested. History/Risk Factors: CAD, CHF, DM2, GERD, HLD, SANA with CPAP, ischemic cardiomyopathy, ESRD on HD, Aortic stenosis, NSTEMI, A/C Systolic CHF, right carotid stenosis Clinical Indicators: 03/16 Nephrology Consult: "Atrial fibrillation with RVR maintained on amiodarone. EKG/telemetry: Per nursing documentation 03/15 1600 SR, 03/15 2000 Atrial Fib with Right BBB 03/[address] Right BBB Treatment: Consults: Cardiology on consult- made no mention of documentation of Atrial Fib 03/15 Amiodarone loading and maintenance drips 03/15 Levophed Gtt titrate for B/P Please clarify the type of atrial fibrillation, if known: [ ] Chronic [ ] Permanent [ ] Paroxysmal [ ] Persistent [ X ] Other, please specify [ ] Unable to determine (Template Last Revised: September 2020) No A fib non sustained Vtach MTDD
--- NOTE | 2021-03-19 14:26 | CDI ---
Documentation Clarification Form Date: 03/19/2021 02:22:00 PM From: Vandana Escobar RN, CCDS Admit Date: 03/08/2021 03:46:00 PM Patient Name: Yoshi Rodrigues Visit Number: [id number] Discharge Date: 03/16/2021 11:05:00 PM ATTENTION: The Clinical Documentation Specialists (CDI) and [facility] Coding Staff appreciate your assistance in clarifying documentation. Please respond to the clarification below the line at the bottom and electronically sign. The CDI & [facility] Coding staff will review the response and follow-up if needed. Please note: Queries are made part of the Legal Health Record. If you have any questions, please contact the author of this message via ITS. Dr. Marry Cleaning "Stump infection is documented in the 03/14 Nephrology Progress note, which may lack sufficient clinical evidence/support in the medical record. Additional clarification is requested. History/Risk Factors: CAD, CHF, DM2, GERD, HLD, SANA with CPAP, ischemic cardiomyopathy, ESRD on HD, Aortic stenosis, NSTEMI, A/C Systolic CHF, right carotid stenosis Clinical Indicators: 03/11 Procedure Note: Left lower extremity nonhealing wound, severe peripheral arterial disease, occluded femoral tibial graft. Left below knee amputation." 03/16 Cardiology: "Patient with new non- STEMI however may be type II mechanism from known severe CAD with CABG and possible sepsis with shock." 03/18 D/C Summary: "He was also noted to have an elevated troponin consistent with a non-STEMI likely secondary to his known severe coronary artery disease with bypass grafting and possible sepsis." 03/14 0552 V/S: Temp 100.2, HR 91, RR 20, B/P 97/59, Spo2 92% 4L NC 03/16 WBC elevated at 18.3 Treatment: 03/13 Vascular Progress Note: "Left lower extremity dressing and knee immobilizer in place. Clean and dry. The dressing was changed. The amputation site is clean and dry. No hematoma or evidence of ischemia Please clarify if post-operative stump infection is a valid diagnosis? [ ] Yes, post-operative stump infection is present as evidence by (additional clinical support): [ ] No, post-operative stump infection] is ruled out [ ] Other (please specify diagnosis) [ X ] Unable to determine (Template Last Revised: July 2020) please send to vascular surgery MTDD
--- NOTE | 2021-03-22 08:40 | CDI ---
Documentation Clarification Form Mortality Review Date: 03/19/2021 02:22:00 PM From: Vandana Escobar RN, CCDS Admit Date: 03/08/2021 03:46:00 PM Patient Name: Yoshi Rodrigues Visit Number: [id number] Discharge Date: 03/16/2021 11:05:00 PM ATTENTION: The Clinical Documentation Specialists (CDI) and [facility] Coding Staff appreciate your assistance in clarifying documentation. Please respond to the clarification below the line at the bottom and electronically sign. The CDI & [facility] Coding staff will review the response and follow-up if needed. Please note: Queries are made part of the Legal Health Record. If you have any questions, please contact the author of this message via ITS. Dr. Chou, "Stump infection is documented in the 03/14 Nephrology Progress note, which may lack sufficient clinical evidence/support in the medical record. Additional clarification is requested. History/Risk Factors: CAD, CHF, DM2, GERD, HLD, SANA with CPAP, ischemic cardiomyopathy, ESRD on HD, Aortic stenosis, NSTEMI, A/C Systolic CHF, right carotid stenosis Clinical Indicators: 03/11 Procedure Note: Left lower extremity nonhealing wound, severe peripheral arterial disease, occluded femoral tibial graft. Left below knee amputation." 03/16 Cardiology: "Patient with new non- STEMI however may be type II mechanism from known severe CAD with CABG and possible sepsis with shock." 03/18 D/C Summary: "He was also noted to have an elevated troponin consistent with a non-STEMI likely secondary to his known severe coronary artery disease with bypass grafting and possible sepsis." 03/14 0552 V/S: Temp 100.2, HR 91, RR 20, B/P 97/59, Spo2 92% 4L NC 03/16 WBC elevated at 18.3 Treatment: 03/13 Vascular Progress Note: "Left lower extremity dressing and knee immobilizer in place. Clean and dry. The dressing was changed. The amputation site is clean and dry. No hematoma or evidence of ischemia Please clarify if post-operative stump infection is a valid diagnosis? [ ] Yes, post-operative stump infection is present as evidence by (additional clinical support): [x ] No, post-operative stump infection] is ruled out [ ] Other (please specify diagnosis) [ ] Unable to determine (Template Last Revised: July 2020) MTDD
== END 2021-03-16 23:05 | disposition expired | DRG 239 ==
LOC: EC 09:08 → 4SSUR 15:46 → 2SICU 03-15 14:54
PROVIDERS: ADMIT Internal Medicine; ATTEND Internal Medicine
PROC: 5A1D70Z Performance of Urinary Filtration, Intermittent, Less than 6 Hours Per Day (ICD-10-PCS; 2021-03-09)
PROC: 0Y6J0Z3 Detachment at Left Lower Leg, Low, Open Approach (ICD-10-PCS; principal; 2021-03-11 13:15)
PROC: 02HV33Z Insertion of Infusion Device into Superior Vena Cava, Percutaneous Approach (ICD-10-PCS; 2021-03-15)
PROC: 5A09457 Assistance with Respiratory Ventilation, 24-96 Consecutive Hours, Continuous Positive Airway Pressure (ICD-10-PCS; 2021-03-15)
PROC: 3E043XZ Introduction of Vasopressor into Central Vein, Percutaneous Approach (ICD-10-PCS; 2021-03-15)
PROC: 4A133J1 Monitoring of Arterial Pulse, Peripheral, Percutaneous Approach (ICD-10-PCS; 2021-03-16)
PROC: 03HY32Z Insertion of Monitoring Device into Upper Artery, Percutaneous Approach (ICD-10-PCS; 2021-03-16)
PROC: 4A133B1 Monitoring of Arterial Pressure, Peripheral, Percutaneous Approach (ICD-10-PCS; 2021-03-16)
DX: T82.392A Other mechanical complication of femoral arterial graft (bypass), initial encounter (principal); I50.23 Acute on chronic systolic (congestive) heart failure; R65.21 Severe sepsis with septic shock; J96.01 Acute respiratory failure with hypoxia; G93.41 Metabolic encephalopathy; I21.4 Non-ST elevation (NSTEMI) myocardial infarction; A41.9 Sepsis, unspecified organism; N18.6 End stage renal disease; J18.9 Pneumonia, unspecified organism; E11.52 Type 2 diabetes mellitus with diabetic peripheral angiopathy with gangrene; T86.11 Kidney transplant rejection; M86.9 Osteomyelitis, unspecified; I13.2 Hypertensive heart and chronic kidney disease with heart failure and with stage 5 chronic kidney disease, or end stage renal disease; L03.116 Cellulitis of left lower limb; E87.1 Hypo-osmolality and hyponatremia; E87.2 Acidosis; I47.2 Ventricular tachycardia; I70.262 Atherosclerosis of native arteries of extremities with gangrene, left leg; J98.11 Atelectasis; I82.621 Acute embolism and thrombosis of deep veins of right upper extremity; I82.C11 Acute embolism and thrombosis of right internal jugular vein; I74.3 Embolism and thrombosis of arteries of the lower extremities; E11.621 Type 2 diabetes mellitus with foot ulcer; E11.69 Type 2 diabetes mellitus with other specified complication; L89.152 Pressure ulcer of sacral region, stage 2; D63.1 Anemia in chronic kidney disease; E83.9 Disorder of mineral metabolism, unspecified; I27.21 Secondary pulmonary arterial hypertension; I95.89 Other hypotension; E11.22 Type 2 diabetes mellitus with diabetic chronic kidney disease; G54.6 Phantom limb syndrome with pain; L97.524 Non-pressure chronic ulcer of other part of left foot with necrosis of bone; Z89.422 Acquired absence of other left toe(s); Z99.2 Dependence on renal dialysis; E11.649 Type 2 diabetes mellitus with hypoglycemia without coma; E11.628 Type 2 diabetes mellitus with other skin complications; D32.9 Benign neoplasm of meninges, unspecified; Z66 Do not resuscitate; Z51.5 Encounter for palliative care; Z20.822 Contact with and (suspected) exposure to COVID-19; G93.89 Other specified disorders of brain; I67.2 Cerebral atherosclerosis; I65.02 Occlusion and stenosis of left vertebral artery; I44.7 Left bundle-branch block, unspecified; I65.21 Occlusion and stenosis of right carotid artery; I25.5 Ischemic cardiomyopathy; G47.33 Obstructive sleep apnea (adult) (pediatric); F32.9 Major depressive disorder, single episode, unspecified; F41.9 Anxiety disorder, unspecified; K21.9 Gastro-esophageal reflux disease without esophagitis; G25.81 Restless legs syndrome; E78.5 Hyperlipidemia, unspecified; S40.021A Contusion of right upper arm, initial encounter; I25.10 Atherosclerotic heart disease of native coronary artery without angina pectoris; I08.3 Combined rheumatic disorders of mitral, aortic and tricuspid valves; I25.2 Old myocardial infarction; N40.0 Benign prostatic hyperplasia without lower urinary tract symptoms; M10.9 Gout, unspecified; Z91.14 Patient's other noncompliance with medication regimen; Z79.82 Long term (current) use of aspirin; Z79.02 Long term (current) use of antithrombotics/antiplatelets; Z79.2 Long term (current) use of antibiotics; Z79.84 Long term (current) use of oral hypoglycemic drugs; Z79.899 Other long term (current) drug therapy; Z95.828 Presence of other vascular implants and grafts; Z86.011 Personal history of benign neoplasm of the brain; Z85.828 Personal history of other malignant neoplasm of skin; Z95.1 Presence of aortocoronary bypass graft; Z87.39 Personal history of other diseases of the musculoskeletal system and connective tissue; Z87.891 Personal history of nicotine dependence; Z87.448 Personal history of other diseases of urinary system; Z86.19 Personal history of other infectious and parasitic diseases; Z98.890 Other specified postprocedural states; Z82.49 Family history of ischemic heart disease and other diseases of the circulatory system; Z81.8 Family history of other mental and behavioral disorders; Z84.1 Family history of disorders of kidney and ureter; Z83.49 Family history of other endocrine, nutritional and metabolic diseases
CPT/HCPCS: 36415; 36600; 70450; 70496; 70498; 71045; 71046; 80048; 80053; 82272; 82533; 82805; 83605; 83735; 83880; 84100; 84132; 84443; 84484; 85025; 85027; 85610; 85652; 85730; 86140; 87040; 87635; 90935; 93005; 93306; 93308; 93880; 94660; 94760; 95816; 99285